=== PATIENT | female | born 1950 | race Hispanic/Latino ===

== ENCOUNTER 2017-10-04 11:30 | Inpatient (IN) | payer MEDICARE ==
--- NOTE | 2017-10-04 12:52 | ED PDOC ---
Arrival/HPI - General Chief Complaint: Abnormal Labs Time Seen by Provider: 10/04/17 11:37 Historian: Patient, Family - History of Present Illness Narrative History of Present Illness (Text): 10/04/17 12:40 La White is a 67 year old female, whose past medical history includes anemia, hypothyroidism, and recent PNA, who presents to the emergency department advised by her PMD. Patient reports feeling fatigue and notes being compliant with her antibiotics that were given to her due to pneumonia 5 days ago. pt reports outpt hemoglobin of 6.5. h/o of previous gi bleed. no dark stool , hematochezia, hememesis. . No other complaints were made. PMD: Dr. Ga Time/Duration: < week Symptom Onset: Sudden Symptom Course: Unchanged Activities at Onset: Rest Context: Home Past Medical History - Provider Review Nursing Documentation Reviewed: Yes - Infectious Disease Hx of Infectious Diseases: None - Reproductive Menopause: Yes - Pulmonary Hx Pneumonia: Yes (recently) - Endocrine/Metabolic Hx Hypothyroidism: Yes - Hematological/Oncological Hx Blood Disorders: No - Psychiatric Hx Substance Use: No - Anesthesia Hx Anesthesia: No Family/Social History - Physician Review Nursing Documentation Reviewed: Yes Family/Social History: Unknown Family HX Smoking Status: Unknown If Ever Smoked Hx Alcohol Use: No Hx Substance Use: No Allergies/Home Meds Allergies/Adverse Reactions: Allergies No Known Allergies Allergy (Verified 10/04/17 11:57) Home Medications: Home Meds Medication Instructions Recorded Confirmed Levothyroxine [Levoxyl] 0 mg PO DAILY 10/04/17 10/04/17 Review of Systems - Physician Review All systems were reviewed & negative as marked: Yes - Review of Systems Constitutional: Fatigue. absent: Fevers Respiratory: SOB Cardiovascular: absent: Chest Pain Physical Exam Vital Signs Reviewed: Yes Vital Signs Temp Pulse Resp BP Pulse Ox 10/04/17 18:03 98.0 F 65 18 130/72 99 10/04/17 17:18 98.1 F 65 18 127/72 10/04/17 17:02 97.7 F 76 18 125/67 10/04/17 16:50 97.9 F 78 18 127/70 100 10/04/17 13:00 68 18 142/70 98 10/04/17 11:53 98.6 F 72 16 145/68 97 Temperature: Afebrile Blood Pressure: Normal Pulse: Regular Respiratory Rate: Normal Appearance: Positive for: Well-Appearing, Non-Toxic, Comfortable Pain Distress: None Mental Status: Positive for: Alert and Oriented X 3 - Systems Exam Head: Present: Atraumatic, Normocephalic Pupils: Present: PERRL Extroacular Muscles: Present: EOMI Conjunctiva: Present: Normal Respiratory/Chest: Present: Clear to Auscultation, Good Air Exchange. No: Respiratory Distress, Accessory Muscle Use Cardiovascular: Present: Regular Rate and Rhythm, Normal S1, S2. No: Murmurs Abdomen: Present: Normal Bowel Sounds. No: Tenderness, Distention, Peritoneal Signs, Rebound, Guarding Rectal: Present: Other (brown stool. guaiac positive. cloth shrinking tester: Kelly Selvin) Neurological: Present: GCS=15, CN II-XII Intact, Speech Normal Skin: Present: Warm, Dry, Normal Color. No: Rashes Psychiatric: Present: Alert, Oriented x 3, Normal Insight, Normal Concentration Medical Decision Making ED Course and Treatment: 10/04/17 Impression: 67 year old female with brown stool and guaiac: positive, advised to come to emergency department by PMD Plan: -- Chest X-ray -- Labs -- Urinalysis -- Reassess and disposition Progress Notes: 10/04/17 17:44 hemnodynamic stable. infiltrate treated, discussed with dr mcneill acceptbouchra for admission. 10/04/17 18:24 - Lab Interpretations Lab Results: 10/04/17 13:35 10/04/17 13:35 Lab Results 10/04/17 15:00: Blood Type Confirm O POSITIVE 10/04/17 13:45: Influenza Typ A,B (EIA) Negative for flu a/b 10/04/17 13:40: Blood Type O POSITIVE, Antibody Screen Negative, Crossmatch See Detail, BBK History Checked No verified bt 10/04/17 13:35: Iron 19 L, TIBC 326, % Saturation 6 L 10/04/17 13:35: Sodium 141, Potassium 3.9, Chloride 104, Carbon Dioxide 25, Anion Gap 15, BUN 10, Creatinine 0.8, Est GFR ( Amer) > 60, Est GFR (Non- Af Amer) > 60, Random Glucose 85, Calcium 9.3, Total Bilirubin 0.3, AST 21, ALT 22, Alkaline Phosphatase 86, Total Protein 7.3, Albumin 3.5, Globulin 3.9, Albumin/Globulin Ratio 0.9 L, Lipase 229 10/04/17 13:35: Urine Color Yellow, Urine Appearance Clear, Urine pH 6.5, Ur Specific [place] <= 1.005, Urine Protein Negative, Urine Glucose (UA) Negative, Urine Ketones Negative, Urine Blood Negative, Urine Nitrate Negative, Urine Bilirubin Negative, Urine Urobilinogen 0.2, Ur Leukocyte Esterase Negative 10/04/17 13:35: PT 16.2 H, INR 1.40 H, APTT 27.8 10/04/17 13:35: WBC 10.0, RBC 3.94, Hgb 6.9 L*, Hct 27.2 L, MCV 69.0 L, MCH 17.5 L, MCHC 25.4 L, RDW 21.1 H, Plt Count 690 H, MPV 9.3, Gran % 67.9, Lymph % (Auto) 22.2, [place] % (Auto) 8.8 H, Eos % (Auto) 0.7 L, Baso % (Auto) 0.4, Gran # 6.80 H, Lymph # (Auto) 2.2, [place] # (Auto) 0.9 H, Eos # (Auto) 0.1, Baso # (Auto ) 0.04 I have reviewed the lab results: Yes - RAD Interpretation Radiology Orders: 10/04/17 12:49 CXR [CHEST PORTABLE] [RAD] Stat Lead Slot Technician: Radiologist - Medication Orders Current Medication Orders: Ceftriaxone Sodium (Rocephin 1 Gram Ivpb) 1 gm in 100 mls @ 100 mls/hr IVPB DAILY JOHN PRN Reason: Protocol Azithromycin 250 mg/ Sodium (Chloride) 250 mls @ 167 mls/hr IVPB DAILY JOHN PRN Reason: Protocol Levothyroxine Sodium (Synthroid) 25 mcg PO ACB JOHN Discontinued Medications Ceftriaxone Sodium (Rocephin 2 Gm Ivpb) 2 gm in 100 mls @ 100 mls/hr IVPB STAT STA PRN Reason: Protocol Stop: 10/04/17 14:05 Last Admin: 10/04/17 13:33 Dose: 100 mls/hr eMAR Start Stop Document 10/04/17 13:33 SF (Rec: 10/04/17 13:33 SF [id number]) Intravenous Solution Start Date 10/04/17 Start Time 13:33 End Date 10/04/17 End time 14:33 Total Infusion Time 60 Azithromycin (Zithromax 500mg In Ns) 500 mg in 250 mls @ 167 mls/hr IVPB STAT STA PRN Reason: Protocol Stop: 10/04/17 14:35 Last Admin: 10/04/17 14:56 Dose: 167 mls/hr eMAR Start Stop Document 10/04/17 14:56 SF (Rec: 10/04/17 14:56 SF [id number]) Intravenous Solution Start Date 10/04/17 Start Time 14:56 End Date 10/04/17 End time 16:30 Total Infusion Time 94 Levothyroxine Sodium (Synthroid) 25 mcg PO DAILY JOHN - Scribe Statement The provider has reviewed the documentation as recorded by the Jacy Montalvo Provider Scribe Attestation: All medical record entries made by the Scribe were at my direction and personally dictated by me. I have reviewed the chart and agree that the record accurately reflects my personal performance of the history, physical exam, medical decision making, and the department course for this patient. I have also personally directed, reviewed, and agree with the discharge instructions and disposition. Disposition/Present on Arrival - Present on Arrival Any Indicators Present on Arrival: No History of DVT/PE: No History of Uncontrolled Diabetes: No Urinary Catheter: No History of Decub. Ulcer: No History Surgical Site Infection Following: None - Disposition Have Diagnosis and Disposition been Completed?: Yes Diagnosis: Anemia, Pneumonia Disposition: HOSPITALIZED Disposition Time: 02:00 Patient Problems: Current Active Problems Problem Status Onset Anemia Acute Pneumonia Acute Condition: STABLE
[2017-10-04] MEDS ORDERED: Azithromycin 500MG/NS 250ml 500 MG/250 ML BAG IVPB STA (13:06)
[2017-10-04] MEDS ORDERED: cefTRIAXone 2 GM IN NS 2 GM/100 ML BAG IVPB STA (13:06)
[2017-10-04 13:58] LABS: BASO # 0.04 K/mm3 (0.0-2.0); BASO % 0.4 % (0.0-3.0); EOS # 0.1 (0.0-0.7); EOS % 0.7 % (1.5-5.0); GRAN # 6.8 (1.4-6.5); GRAN % 67.9 % (50.0-68.0); LYMPH # 2.2 (1.2-3.4); LYMPH % 22.2 % (22.0-35.0); MEAN CORPUSCULAR HEMOGLOBIN 17.5 pg (25.0-35.0); MEAN CORPUSCULAR HGB CONC 25.4 g/dl (31.0-37.0); MEAN PLATELET VOLUME 9.3 fl (7.0-11.0); MONO # 0.9 (0.1-0.6); MONO % 8.8 % (1.0-6.0); RBC 3.94 10^6/uL (3.5-6.1); RED CELL DISTRIBUTION WIDTH 21.1 % (11.5-14.5)
[2017-10-04 14:02] LABS: PH,URINE 6.5 (4.7-8.0); URINE BILIRUBIN NEGATIVE (NEGATIVE); URINE BLOOD NEGATIVE (NEGATIVE); URINE GLUCOSE (UA) NEGATIVE (NEGATIVE); URINE LEUKOCYTE ESTERASE NEGATIVE Leu/uL (NEGATIVE); URINE PROTEIN NEGATIVE mg/dL (<30 mg/dL); URINE UROBILINOGEN 0.2 E.U./dL (<1 E.U./dL)
[2017-10-04 14:03] LABS: URINE APPEARANCE CLEAR (CLEAR); URINE COLOR YELLOW (YELLOW)
[2017-10-04 14:11] LABS: ALB/GLOB RATIO 0.9 (1.1-1.8); ALBUMIN 3.5 g/dL (3.0-4.8); ALT/SGPT 22 U/L (7-56); AST/SGOT 21 U/L (14-36); BLOOD UREA NITROGEN 10 mg/dL (7-21); CALCIUM 9.3 mg/dL (8.4-10.5); GFR AFRICAN-AMERICAN > 60; GFR NON-AFRICAN AMERICAN > 60; LIPASE 229 U/L (23-300)
[2017-10-04 14:17] LABS: HEMOGLOBIN 6.9 g/dL (12.0-16.0)
--- NOTE | 2017-10-04 14:24 | RAD ---
HISTORY: cough COMPARISON: No prior. FINDINGS: LUNGS: There is dense consolidation in the right upper lobe. PLEURA: No significant pleural effusion identified, no pneumothorax apparent. CARDIOVASCULAR: Normal. OSSEOUS STRUCTURES: No significant abnormalities. VISUALIZED UPPER ABDOMEN: Normal. OTHER FINDINGS: None. IMPRESSION: Right upper lobe pneumonia
[2017-10-04 14:58] LABS: INR 1.4 (0.93-1.08); PARTIAL THROMBOPLASTIN TIME 27.8 Seconds (25.1-36.5); PROTHROMBIN TIME 16.2 SECONDS (9.4-12.5)
[2017-10-04 15:44] LABS: IRON 19 ug/dL (45-180)
[2017-10-04 15:53] LABS: % IRON SATURATION 6 % (20-55); TOTAL IRON BINDING CAPACITY 326 ug/dL (265-497)
[2017-10-04 20:09] VITALS: BMI 36.4
[2017-10-04] MEDS ORDERED: Influenza Vaccine 60 mcg/0.5 mL SYR (4YR UP) IM ONE (20:09)
[2017-10-04] MEDS ORDERED: Pneumococcal 23-Valent Vaccine IM ONE (20:09)
[2017-10-04 21:11] LABS: FERRITIN 12.6 ng/mL
[2017-10-05] MEDS ORDERED: Albuterol-Ipratrop 3 mg / 0.5 (3 ml) UD IH PRN (06:41)
[2017-10-05 07:25] LABS: HEMOGLOBIN 7.6 g/dL (12.0-16.0); MEAN CORPUSCULAR HEMOGLOBIN 18.7 pg (25.0-35.0); MEAN CORPUSCULAR HGB CONC 27.5 g/dl (31.0-37.0); MEAN PLATELET VOLUME 8.6 fl (7.0-11.0); RBC 4.06 10^6/uL (3.5-6.1); RED CELL DISTRIBUTION WIDTH 21.2 % (11.5-14.5); WHITE BLOOD COUNT 8.5 10^3/ul (4.5-11.0)
[2017-10-05] MEDS: Albuterol-Ipratrop 3 mg / 0.5 (3 ml) UD IH SCH ×3 (07:32→19:54)
[2017-10-05] MEDS: Budesonide 0.5 mg/2 ml Inhal Susp UD IH SCH ×2 (07:32→19:54)
[2017-10-05 07:52] LABS: BLOOD UREA NITROGEN 11 mg/dL (7-21); GFR AFRICAN-AMERICAN > 60; GFR NON-AFRICAN AMERICAN > 60
[2017-10-05 07:53] LABS: ALB/GLOB RATIO 0.9 (1.1-1.8); ALBUMIN 3.2 g/dL (3.0-4.8); ALT/SGPT 18 U/L (7-56); AST/SGOT 22 U/L (14-36); CALCIUM 9.1 mg/dL (8.4-10.5)
--- NOTE | 2017-10-05 08:52 | CT ---
PROCEDURE: CT Chest without contrast HISTORY: pneumonia, anemia r/o cancer COMPARISON: None. TECHNIQUE: Contiguous axial images were obtained through the chest without intravenous contrast enhancement. Sagittal and coronal reconstructions were performed. Radiation dose (DLP): 701.34 mGy-cm. This CT exam was performed using one or more of the following dose reduction techniques: Automated exposure control, adjustment of the mA and/or kV according to patient size, and/or use of iterative reconstruction technique. FINDINGS: LUNGS: There are foci of airspace consolidation at the right lung upper lobe and superior segment of the right lung lower lobe. Right hilar and perihilar consolidations are also noted. Findings may represent multifocal infection or inflammatory process including but not limited to sarcoidosis. The differential consideration also includes but less likely multifocal neoplasm. There is mild narrowing of the right upper lobe bronchus and right bronchus intermedius at the right hilum and perihilar region noted. No evidence of intrabronchial lesion or obstruction in the right lung airway. No evidence of suspicious lesion or nodule in the left lung. There is a small cyst seen at the right lung apex. MEDIASTINUM: Unremarkable thoracic aorta. No aneurysm. Normal sized heart. Main pulmonary artery unremarkable. No vascular congestion. There are conglomerate large lymphadenopathy at the right paratracheal region. There is also mildly to moderately enlarged lymph nodes at the right prevascular region in the upper mediastinum. There is a suspicious for right hilar lymphadenopathy which cannot be fully evaluated in this noncontrast study. There is also suspicious for right sub- carinal enlarged lymph nodes. PLEURA: No pleural fluid. No pneumothorax. BONES: No fracture. No destructive lesion. UPPER ABDOMEN: Incidentally noted partially imaged low-attenuation cystic lesion at the pancreatic tail measures 1.8 centimeter seen on image 115 series 4. No evidence of mass lesion at the adrenal glands. OTHER FINDINGS: None. IMPRESSION: Foci of airspace consolidation at the right lung upper lobe and in the superior segments of right lower lobe extending to the right hilum which is moderately enlarged. Suspicious for punctate calcification this airspace consolidation. The differential consideration includes sarcoidosis, or chronic pneumonitis, versus less likely but not totally excluded multifocal pneumonia or neoplasm. Conglomerate lymphadenopathy at the right mediastinum and possible right hilum lymphadenopathy. Incidentally noted is 1.8 centimeter low-attenuation cystic lesion at the pancreatic tail. Dedicated enhanced CT or MRI of the abdomen is suggested for further assessment.
[2017-10-05] MEDS: cefTRIAXone 1 gm 1 GM/100 ML BAG IVPB SCH (09:56)
[2017-10-05] MEDS: Azithromycin 250 MG in Sodium Chloride 0.9% 250 ML IVPB SCH (09:56)
[2017-10-05] MEDS: Levothyroxine 25 MCG TAB PO SCH (09:57)
[2017-10-05] MEDS: MethylPREDNISolone 40 mg Vial IVP SCH ×2 (09:57→22:09)
[2017-10-05] MEDS ORDERED: Levothyroxine 25 MCG TAB PO SCH (10:00)
--- NOTE | 2017-10-05 11:41 | CON ---
DATE: 10/05/2017 PULMONARY CONSULTATION REASON FOR CONSULTATION: Pneumonia. REFERRING PHYSICIAN: Dr. Hobbs. HISTORY OF PRESENT ILLNESS: The patient is a 67-year-old female, with past medical history significant for hypothyroidism, questionable chronic anemia, who presents to [facility] with chief complaints of dyspnea on exertion, cough, and sputum production for the past week. The patient states that these pulmonary symptoms were preceded by a runny nose and nasal congestion - which has now resolved. There is no history of shortness of breath at rest. There is no history of chest pain, coughing up of blood, or chest pain - made worse with deep respirations. The patient does state to fevers at home. No history of chills or infectious exposure. No history of night sweats, weight loss or appetite change prior to the above events. No history of leg or calf pains. No history of syncope or diaphoresis. No history of recent travel or trauma. REVIEW OF SYSTEMS: No history of nausea, vomiting or diarrhea. No acute urinary symptoms. No new neurologic complaints. Rest of the review of systems is negative. ALLERGIES: NO KNOWN ALLERGIES. SOCIAL HISTORY: Positive for former tobacco usage. No alcohol. FAMILY HISTORY: No inheritable diseases. HOME MEDICATIONS: Include Levoxyl. PHYSICAL EXAMINATION GENERAL: The patient appears comfortable at rest. She is not short of breath. VITAL SIGNS: (Last noted in the computer): Temperature is 97.9, pulse is 70, respirations 18/20, blood pressure 134/74. Oxygen saturation on nasal cannula is 99%. HEENT: Normocephalic, atraumatic. No JVD. CARDIOVASCULAR: Positive S1, S2. No S3 gallop. LUNGS: Decreased breath sounds at the bases. Scattered loose rhonchi. No wheezing. EXTREMITIES: Mild edema. No cyanosis, no clubbing. Calves are nontender to palpation. GI: Abdomen is soft, nontender and nondistended. Bowel sounds are positive. SKIN: No acute rash. NEUROLOGIC: Limited at the present time. PERTINENT LABORATORY DATA: Chest x-ray was done yesterday and reviewed. There is a dense right upper lobe consolidation consistent with pneumonia. CBC: White count 10.0, hemoglobin 6.9, hematocrit 27.2, platelets of 690,000. Complete metabolic profile: Iron is -19. Rest of the metabolic profiles within normal limits. IMPRESSION: 1. Right upper lobe pneumonia. 2. Acute bronchitis. 3. Severe anemia. 4. Thyroid disease. PLAN: The patient presents to [facility] with a 1-week history of worsening pulmonary symptoms. As above, the pulmonary symptoms were preceded by nasal congestion and runny nose - which have now resolved. The patient also states to fevers at home. In the emergency room, the patient was noted to be severely anemic. She was thus admitted for additional evaluation. I did review the chest x-ray as above. There is a dense right upper lobe consolidation consistent with pneumonia. CAT scan of the chest has also been ordered for closer evaluation. On physical exam, the patient is in [id number] bronchospasm. However, there is no significant alveolar-arterial gradient. I will start the patient on inhaled DuoNebs, Pulmicort, and low-dose intravenous steroids for now. I have also reviewed the laboratory data. Severe anemia is noted. Dr. Rosado has been called on the case for GI consultation. The patient does state to feeling better this morning - compared to the past few days. She is clinically improved, with a decrease in her fevers. Additional pulmonary intervention will be based on the above results, as well as the clinical status of the patient. I will discuss the above with Dr. Hobbs. Thank you very much for this pulmonary consultation. Harris Parra MD MTDKadie
[2017-10-05] MEDS ORDERED: Propofol 10 mg/ml Inj (20 ML) ONE (16:35)
[2017-10-05] MEDS ORDERED: Albuterol HFA 90 mcg/actuation (8 g) ONE (16:41)
--- NOTE | 2017-10-05 17:01 | HP ---
CHIEF COMPLAINT AND HISTORY OF PRESENT ILLNESS: This is a 67-year-old female who is coming to the hospital with anemia based on a CBC that was done by her primary care doctor, Dr. Arguello. The patient had a hemoglobin of 6.8. The patient has a history of hypothyroidism, she was being treated with respiratory tract infection with Levaquin as an outpatient. She was complaining of chills and fatigue, this was about 5 days ago. She says that she is feeling better. She was receiving Levaquin 750 mg. The patient denies any black stools. She does not take any NSAIDs. She denies any nausea, vomiting, or abdominal pain. No dysuria or frequency. No nocturia. No weakness in the arms or legs. REVIEW OF SYSTEMS: All other review of symptoms are within normal limits except as mentioned. ALLERGIES: NO KNOWN DRUG ALLERGIES. SOCIAL HISTORY: She does not smoke. She denies alcohol or drugs. FAMILY HISTORY: Noncontributory. PAST MEDICAL HISTORY: Hypothyroidism. PHYSICAL EXAMINATION: VITAL SIGNS: Temperature is 97.9, pulse of 70, blood pressure is 134/74, respirations 20. Height is 5 feet 6 inches, weight is 226. BMI is 36.5. GENERAL: The patient lying in bed, uncomfortable, and in no acute distress. HEENT: Atraumatic and normocephalic. Anicteric sclerae. Moist mucosa. [place] conjunctivae. No oral lesions. NECK: No JVD, anterior and posterior adenopathy, thyromegaly, or bruits. CARDIOVASCULAR: S1 and S2 regular. No murmur, rubs, or gallop. LUNGS: Clear to auscultation bilaterally. No wheezes, rales, or rhonchi. ABDOMEN: Bowel sounds are positive. Soft, nontender and nondistended. No hepatosplenomegaly. No rebound and no guarding EXTREMITIES: No cyanosis, clubbing, or edema. NEUROLOGIC: No facial asymmetry. Tongue is midline. No uvula deviation. Power is 5/5 upper extremity and lower extremity. Sensation intact in upper extremity and lower extremity. PSYCHIATRIC: She is awake, alert and oriented x3. No anxiety or depression. She has normal affect. GENITOURINARY: No CVA tenderness. VASCULAR: 2+ pulses in the carotid pulses and pedal pulses. SKIN: No erythema or nodules SPINE: Shows normal curvature. LABORATORY DATA: White count of 10; hemoglobin is 6.9, repeat hemoglobin is 7.6. INR is 1.4. Chemistry shows an iron saturation of 6% with ferritin of 12.6. The patient's magnesium is 2.3. She has vitamin B12 of 613. The patient's urine has blood is negative, nitrites are negative. Serology shows influenza is negative. IMAGING: The patient had a chest x-ray, the chest x-ray shows a right upper lobe pneumonia. ASSESSMENT: 1. Right lung pneumonia, community acquired. 2. Anemia of iron deficiency. 3. Hypothyroidism. PLAN: The patient is currently admitted to the hospital. She has an abnormal chest x-ray. Her white count is normal, but she was on antibiotics. The patient does have anemia. She had iron studies and shows it is iron deficiency. I have ordered a CAT scan to evaluate the patient's anemia in the fact that she has an infiltrate. I want to rule out malignancy. I will also get Dr. Parra to evaluate the patient as well as Dr. Rosado to evaluate for the anemia. The patient is on steroids. I will place the patient on p.o. iron to help with the anemia. I did speak to Dr. Parra regarding the case. I did speak to Dr. Arguello who updated me on the patient's diagnoses as an outpatient. She is on a liquid diet. Yuniel Hobbs MD
[2017-10-05] MEDS: Sodium Chloride 0.9% 1,000 ML IV SCH (21:49)
[2017-10-06] MEDS: Albuterol-Ipratrop 3 mg / 0.5 (3 ml) UD IH SCH ×4 (01:14→20:22)
[2017-10-06] MEDS: Sodium Chloride 0.9% 1,000 ML IV SCH (04:29)
[2017-10-06] MEDS: Budesonide 0.5 mg/2 ml Inhal Susp UD IH SCH ×2 (07:26→20:22)
[2017-10-06] MEDS: Levothyroxine 25 MCG TAB PO SCH (08:00)
--- NOTE | 2017-10-06 08:02 | PN ---
DATE: SUBJECTIVE: The patient appears very comfortable this morning. She is not short of breath at rest. OBJECTIVE VITAL SIGNS (last noted in the computer): Temperature is 98.2, pulse 62, respirations 18, blood pressure 135/69. Oxygen saturation on nasal cannula is 95%. HEENT: Normocephalic, atraumatic. No JVD. CARDIOVASCULAR: Positive S1, S2. No S3 gallop. LUNGS: Improved breath sounds at the bases. Much less rhonchi. Few wheezes. EXTREMITIES: Mild edema. No cyanosis, no clubbing. Calves are nontender to palpation. GASTROINTESTINAL: Abdomen is soft, nontender and nondistended. Bowel sounds are positive. SKIN: No acute rash. NEUROLOGIC: Exam limited at the present time. PERTINENT LABORATORY DATA: I did review the CT scan of the chest with Dr. Burton (Radiology) at length yesterday. There is significant air space consolidation in the right upper lobe - most consistent with pneumonia. Due to the extent of the air space consolidation, underlying malignancy could not be excluded. In addition, there is a right basilar/right lower lobe pulmonary nodule with spiculated borders. Lastly, there is significant adenopathy at the right paratracheal region, as well as the right prevascular regions. There is no endobronchial involvement. IMPRESSION 1. Right upper lobe pneumonia. 2. Right lower lobe pulmonary nodule. 3. Acute bronchitis. 4. Severe anemia. 5. Thyroid disease. PLAN: The patient appears very comfortable this morning. She is not short of breath at rest. She does state to feeling much, much better overall. On physical exam, her bronchospasm is certainly less. In addition, the alveolar-arterial gradient is also less. I will continue the current nebulizer treatments and low-dose intravenous steroids for now. Again, I did review the CT scan of the chest with Dr. Burton (Radiology) at length yesterday. Again, there is a right upper lobe air space consolidation - most consistent with pneumonia. However, due to the extent of the air space consolidation, underlying malignancy cannot be ruled out. As above, there is also a spiculated right lower lobe/right basilar nodule. As above, there is significant right paratracheal and right prevascular lymphadenopathy. There is no endobronchial involvement. I did discuss the CT scan findings with the patient at length this morning. I also discussed the CT scan findings with Dr. Hobbs and Dr. Gus Jimenez yesterday at length. Because of the appearance of the right lower lobe nodule, along with the significant adenopathy, the patient has agreed to a CT scan guided biopsy of the right lower lobe nodule. I will re-contact with Dr. Gus Jimenez this morning. Clinical status of the patient is certainly improved - compared to the initial presentation. However, the overall status/prognosis for this patient does remain guarded at this point in time. I will discuss the above with Dr. Hobbs again this morning. Harris Parra MD MTDD
[2017-10-06] MEDS ORDERED: Iron Sucrose 100 mg/5 ml Inj IVP ONE (09:01)
[2017-10-06] MEDS: MethylPREDNISolone 40 mg Vial IVP SCH ×2 (10:14→21:27)
[2017-10-06] MEDS: cefTRIAXone 1 gm 1 GM/100 ML BAG IVPB SCH (10:16)
[2017-10-06] MEDS: Azithromycin 250 MG in Sodium Chloride 0.9% 250 ML IVPB SCH (10:32)
--- NOTE | 2017-10-06 13:41 | PN ---
DATE: SUBJECTIVE: The patient has no complaints of any headaches, any dizziness. She states she feels comfortable. No nausea. No vomiting. PHYSICAL EXAMINATION VITAL SIGNS: Temperature is 98.2, pulse is 62, blood pressure is 135/69, respirations 18, O2 saturations 95%. GENERAL: The patient is lying in bed, flat, comfortable. HEENT: No oral lesion. Anicteric sclerae. Moist mucosa. NECK: No JVD, adenopathy, or thyromegaly. CARDIOVASCULAR: S1 and S2, regular. No murmurs, rubs, or gallops. LUNGS: Clear to auscultation bilaterally. No wheeze, rales, or rhonchi. ABDOMEN: Bowel sounds are positive. Soft, nontender and nondistended. EXTREMITIES: No cyanosis, clubbing or edema. LABORATORY DATA: White count is 8.5, hemoglobin is 7.6. Creatinine 0.8. CT of the chest has been reviewed. The patient does have a lesion in the right chest on CT. I did speak to Dr. Parra regarding the case. ASSESSMENT 1. Community acquired pneumonia. 2. Iron deficiency anemia. 3. Hypothyroidism. 4. Right lung nodule about 2.3 cm. 5. Esophageal polyp. PLAN: The patient is currently comfortable. She has a hemoglobin of 7.6, she received 1 unit transfusion yesterday, reticulocyte count is elevated 2.45. She does have iron deficiency with ferritin of 12 and iron saturation is 6%. The patient is on iron. She is going to be continued on Pulmicort. She is on Rocephin for antibiotics and she is on steroids by Dr. Parra from Pulmonary. She is on Synthroid for hypothyroidism. She had a CT guided biopsy that has been ordered for today. I did speak to Dr. Gus Jimenez yesterday regarding the case. The patient will most likely need lung biopsy. We will await for the results. I have okayed the patient take a shower. I will give her 200 mg of IV iron in order to help improve her anemia. So, she does not require a transfusion. Yuniel Hobbs MD [facility] # [id number]
[2017-10-06] MEDS ORDERED: Peg-Electrolyte Oral Soln 4L (Golytely) PO ONE (15:00)
[2017-10-06] MEDS ORDERED: Midazolam 2 MG/2 ML VIAL ONE (17:27)
[2017-10-06] MEDS ORDERED: Lidocaine 1% Inj (20ml) ONE (17:28)
--- NOTE | 2017-10-06 17:59 | CP.PCM.PN ---
<Clari Agee - Last Filed: 10/06/17 17:58> Subjective - Date & Time of Evaluation Date of Evaluation: 10/06/17 Time of Evaluation: 10:25 - Subjective Subjective: S&E at bedside, chart reviewed, for lung BX today, had egd yesterday foumd to have EG junction polyp.No GI compliants. No reports of overt GI bleeding. Objective - Vital Signs/Intake and Output Vital Signs (last 24 hours): Temp Pulse Resp BP Pulse Ox 98.0 F 72 20 144/75 96 10/06/17 06:00 10/06/17 06:00 10/06/17 06:00 10/06/17 06:00 10/06/17 06:00 Intake and Output: 10/06/17 10/06/17 06:59 18:59 Intake Total 180 Balance 180 - Medications Medications: Current Medications Albuterol/Ipratropium (Duoneb 3 Mg/0.5 Mg (3 Ml) Ud) 3 ml IH [id number] [facility] Last Admin: 10/06/17 13:17 Dose: 3 ml Albuterol/Ipratropium (Duoneb 3 Mg/0.5 Mg (3 Ml) Ud) 3 ml IH Q2H PRN PRN Reason: Shortness of Breath Bisacodyl (Dulcolax) 10 mg PO ONCE ONE Stop: 10/06/17 20:01 Budesonide (Pulmicort Respules) 0.5 mg IH [id number] [facility] Last Admin: 10/06/17 07:26 Dose: 0.5 mg Ferrous Sulfate (Feosol) 324 mg PO BID [facility] Last Admin: 10/06/17 10:14 Dose: 324 mg Ceftriaxone Sodium (Rocephin 1 Gram Ivpb) 1 gm in 100 mls @ 100 mls/hr IVPB DAILY [facility] PRN Reason: Protocol Last Admin: 10/06/17 10:16 Dose: 100 mls/hr Azithromycin 250 mg/ Sodium (Chloride) 250 mls @ 167 mls/hr IVPB DAILY [facility] PRN Reason: Protocol Last Admin: 10/06/17 10:32 Dose: 167 mls/hr Levothyroxine Sodium (Synthroid) 25 mcg PO ACB [facility] Last Admin: 10/06/17 08:00 Dose: 25 mcg Methylprednisolone (Solu-Medrol) 30 mg IVP Q12 [facility] Last Admin: 10/06/17 10:14 Dose: 30 mg - Labs Labs: 10/05/17 07:00 10/05/17 07:00 PT 16.2 SECONDS (9.4-12.5) H 10/04/17 13:35 INR 1.40 (0.93-1.08) H 10/04/17 13:35 APTT 27.8 Seconds (25.1-36.5) 10/04/17 13:35 - Constitutional Appears: No Acute Distress - Head Exam Head Exam: NORMOCEPHALIC - Eye Exam Eye Exam: Normal appearance. absent: Scleral icterus - ENT Exam ENT Exam: Mucous Membranes Moist - Respiratory Exam Respiratory Exam: NORMAL BREATHING PATTERN. absent: Respiratory Distress - Cardiovascular Exam Cardiovascular Exam: +S1, +S2 - GI/Abdominal Exam GI & Abdominal Exam: Soft, Normal Bowel Sounds. absent: Guarding, Tenderness, Rebound - Extremities Exam Extremities Exam: absent: Calf Tenderness, Pedal Edema - Neurological Exam Neurological Exam: Alert, Awake, Oriented x3 - Skin Skin Exam: Dry, Warm Assessment and Plan - Assessment and Plan (Free Text) Assessment: ASSESSEMNT: Anemia Pneumonia EG junction polyp Lung nodule PLAN: FU EGD pathology plan for colonoscopy tomorrow 10/07/17 clear liquid diet Golytle prep at 3 pm, Dulcolax 10 mg PO at 8 pm NPO 12 midnight except meds, can have clear liquid breakfast hold Iron PO till after colon, can resume next day 10/08/17. on Iv antibiotics for lung BX today w/ Dr. Jimenez check cbc/cmp in am Seen and discussed w/ Dr. Rosado. <Farida Rosado V - Last Filed: 10/19/17 11:33> Objective - Vital Signs/Intake and Output Vital Signs (last 24 hours): Temp Pulse Resp BP Pulse Ox 98.2 F 66 16 141/56 L 94 L 10/06/17 19:15 10/06/17 19:15 10/06/17 19:15 10/06/17 19:15 10/06/17 19:15 Intake and Output: 10/06/17 10/07/17 18:59 06:59 Intake Total 100 Balance 100 - Medications Medications: Current Medications Acetaminophen (Tylenol 325mg Tab) 650 mg PO Q4 PRN PRN Reason: Pain, Mild (1-3) Albuterol/Ipratropium (Duoneb 3 Mg/0.5 Mg (3 Ml) Ud) 3 ml IH [id number] [facility] Last Admin: 10/06/17 20:22 Dose: 3 ml Albuterol/Ipratropium (Duoneb 3 Mg/0.5 Mg (3 Ml) Ud) 3 ml IH Q2H PRN PRN Reason: Shortness of Breath Budesonide (Pulmicort Respules) 0.5 mg IH [id number] [facility] Last Admin: 10/06/17 20:22 Dose: 0.5 mg Ferrous Sulfate (Feosol) 324 mg PO BID [facility] Last Admin: 10/06/17 10:14 Dose: 324 mg Ceftriaxone Sodium (Rocephin 1 Gram Ivpb) 1 gm in 100 mls @ 100 mls/hr IVPB DAILY [facility] PRN Reason: Protocol Last Admin: 10/06/17 10:16 Dose: 100 mls/hr Azithromycin 250 mg/ Sodium (Chloride) 250 mls @ 167 mls/hr IVPB DAILY [facility] PRN Reason: Protocol Last Admin: 10/06/17 10:32 Dose: 167 mls/hr Sodium Chloride (Sodium Chloride 0.45%) 1,000 mls @ 80 mls/hr IV .[id number] [facility] Stop: 10/07/17 06:00 Last Admin: 10/06/17 19:38 Dose: 80 mls/hr Levothyroxine Sodium (Synthroid) 25 mcg PO ACB [facility] Last Admin: 10/06/17 08:00 Dose: 25 mcg Methylprednisolone (Solu-Medrol) 30 mg IVP Q12 [facility] Last Admin: 10/06/17 21:27 Dose: 30 mg Ondansetron HCl (Zofran Inj) 4 mg IVP Q6H PRN PRN Reason: Nausea/Vomiting - Labs Labs: 10/05/17 07:00 10/05/17 07:00 PT 16.2 SECONDS (9.4-12.5) H 10/04/17 13:35 INR 1.40 (0.93-1.08) H 10/04/17 13:35 APTT 27.8 Seconds (25.1-36.5) 10/04/17 13:35 Attending/Attestation - Attestation I have personally seen and examined this patient.: Yes I have fully participated in the care of the patient.: Yes I have reviewed all pertinent clinical information, including history, physical exam and plan: Yes Notes (Text): This is an addendum to GI progress report dictated by Clari Agee APN.The patient was seen and examined earlier. Medical records, lab studies, imagings were reviewed. Last 24 hours events reviewed. Agreed with the above treatment plan as outlined in Clari Agee APN's notes the with the addition of the following : Patient will be scheduled for colonoscopy with GoLYTELY preparation, nothing by mouth after midnight. Continue GI prophylaxis and monitor H&H and for overt GI bleed.
[2017-10-06] MEDS ORDERED: Sodium Chloride 0.45% 1,000 ML IV SCH (18:30)
[2017-10-06] MEDS ORDERED: Bisacodyl 5mg EC Tab PO ONE (20:00)
--- NOTE | 2017-10-06 20:37 | CT ---
PROCEDURE: CT guided right lower lobe lung biopsy. HISTORY: Large right hilar and lower lobe lung mass. Evaluate for malignancy. PHYSICIAN(S): Gus Jimenez MD. TECHNIQUE: The relative risks and indications of the procedure were explained to the patient and consent obtained. The patient was placed prone on the CT scanner and preliminary images through the mid and lower lungs obtained. Conscious sedation and monitoring were provided throughout the procedure by a nurse. There is a large right hilar mass with extension into the right lower lobe. A right posterior approach was selected and the area prepped and draped in the usual sterile fashion. 1% Xylocaine was used to anesthetize the skin and soft tissues. A 19 gauge guiding needle was advanced into the 3.5 cm right lower lobe component. Its position was confirmed with CT. Using coaxial technique, multiple core biopsies were obtained. The postprocedure images show no evidence of large pneumothorax or hemorrhage P. IMPRESSION: 1. CT-guided ight lower lobe lung biopsy as described above.
[2017-10-07] MEDS: Albuterol-Ipratrop 3 mg / 0.5 (3 ml) UD IH SCH ×5 (03:05→20:34)
[2017-10-07 07:05] LABS: HEMOGLOBIN 8.4 g/dL (12.0-16.0); MEAN CELL VOLUME 68.6 fl (80.0-105.0); MEAN CORPUSCULAR HEMOGLOBIN 18.5 pg (25.0-35.0); MEAN CORPUSCULAR HGB CONC 26.9 g/dl (31.0-37.0); MEAN PLATELET VOLUME 8.8 fl (7.0-11.0); RBC 4.55 10^6/uL (3.5-6.1); RED CELL DISTRIBUTION WIDTH 22.1 % (11.5-14.5); WHITE BLOOD COUNT 13.9 10^3/ul (4.5-11.0)
[2017-10-07 07:21] LABS: BLOOD UREA NITROGEN 11 mg/dL (7-21); CALCIUM 9.7 mg/dL (8.4-10.5); GFR AFRICAN-AMERICAN > 60; GFR NON-AFRICAN AMERICAN > 60
[2017-10-07] MEDS ORDERED: Magnesium Citrate Oral SOL (300 ml) PO ONE (07:48)
[2017-10-07] MEDS: Budesonide 0.5 mg/2 ml Inhal Susp UD IH SCH ×2 (07:54→20:33)
[2017-10-07] MEDS: Levothyroxine 25 MCG TAB PO SCH (08:36)
--- NOTE | 2017-10-07 09:12 | RAD ---
HISTORY: rt lung bx COMPARISON: 10/12/2017 FINDINGS: LUNGS: There is a dense focal infiltrate in the right upper lobe. There is no evidence of post biopsy pneumothorax PLEURA: No significant pleural effusion identified, no pneumothorax apparent. CARDIOVASCULAR: Normal. OSSEOUS STRUCTURES: No significant abnormalities. VISUALIZED UPPER ABDOMEN: Normal. OTHER FINDINGS: None. IMPRESSION: There is a dense focal infiltrate in the right upper lobe. There is no evidence of post biopsy pneumothorax
[2017-10-07] MEDS: cefTRIAXone 1 gm 1 GM/100 ML BAG IVPB SCH (11:01)
[2017-10-07] MEDS: MethylPREDNISolone 40 mg Vial IVP SCH ×2 (11:03→21:09)
--- NOTE | 2017-10-07 11:04 | PN ---
DATE: 10/07/2017 PULMONARY NOTE SUBJECTIVE: The patient appears comfortable this morning. She is not short of breath at rest. PHYSICAL EXAMINATION VITAL SIGNS: (Last noted in the computer): Temperature is 98.2, pulse is 66, respirations 16, blood pressure 141/56. Oxygen saturation on nasal cannula is 94%. HEENT: Normocephalic, atraumatic. No JVD. CARDIOVASCULAR: Positive S1, S2. No S3 gallop. LUNGS: Improved breath sounds at the bases. Minimal/less rhonchi. No wheezing this morning. EXTREMITIES: Mild edema. No cyanosis, no clubbing. Calves are nontender to palpation. GI: Abdomen is soft, nontender and nondistended. Bowel sounds are positive. SKIN: No acute rash. NEUROLOGIC: Limited at the present time. IMPRESSION: 1. Right upper lobe pneumonia. 2. Right lower lobe pulmonary nodule. 3. Acute bronchitis. 4. Severe anemia. 5. Thyroid disease. PLAN: The patient appears much more comfortable this morning. She is not short of breath at rest. She does state to feeling much, much better overall. On physical exam, there is certainly less bronchospasm noted. I will continue the current nebulizer treatments and inhaled steroids, as well as, decrease the intravenous steroids this morning. The patient also remains on antibiotic therapy. The temperatures have resolved. Culture results are so far negative. I did note the CAT scan findings at length in yesterday's assessment. The patient is status post CAT scan-guided lung biopsy of the right lower lobe nodule. Input by Dr. Gus Jimenez is noted. GI evaluation is also ongoing. Clinical status of the patient is significantly improved - compared to the initial presentation. However, the future status/prognosis for this patient does remain guarded. I will discuss the above with Dr. Hobbs. Harris Parra MD MTDKadie
--- NOTE | 2017-10-07 11:41 | PN ---
DATE: SUBJECTIVE: The patient has no complaints of any chest pain, any shortness of breath. No headaches. No fevers or chills. PHYSICAL EXAMINATION: VITAL SIGNS: Temperature is 98.2, pulse is 66, blood pressure is 141/56, respirations 16. GENERAL: The patient is lying in bed, flat, comfortable. HEENT: No oral lesion. Anicteric sclerae. Moist mucosa. NECK: No JVD, adenopathy, or thyromegaly. CARDIOVASCULAR: S1 and S2, regular. No murmurs, rubs, or gallops. LUNGS: Clear to auscultation bilaterally. No wheeze, rales, or rhonchi. ABDOMEN: Bowel sounds are positive, soft, nontender and nondistended. EXTREMITIES: No cyanosis, clubbing or edema. LABORATORY DATA: White count of 8.5, hemoglobin is 7.6. ASSESSMENT: 1. Community acquired pneumonia. 2. Iron deficiency anemia. 3. Hypothyroidism. 4. Right lung nodule about 2.3 cm. 5. Esophageal polyp. PLAN: The patient had her CT-guided lung biopsy yesterday, we will await for the results. The patient also had a biopsy of a polyp found at the EJ junction. She scheduled to get a colonoscopy done today. I did speak to from primary care doctor to update her. I also spoke with Dr. Parra from Pulmonary yesterday. We will await pathology results. She is getting GoLYTELY for her colonoscopy this morning. She feels well. The patient can most likely to be discharged home over the weekend and followed up as an outpatient with the primary care doctor, and await results of her pathology report. Yuniel Hobbs MD
[2017-10-07] MEDS ORDERED: Lactated Ringer's 1,000 ML IV SCH (12:15)
[2017-10-07] MEDS: Azithromycin 250 MG in Sodium Chloride 0.9% 250 ML IVPB SCH (12:20)
[2017-10-07] MEDS ORDERED: Propofol 10 mg/ml Inj (20 ML) ONE (17:22)
[2017-10-07] MEDS ORDERED: Sodium Chloride 0.9% 1,000 ML IV SCH (18:15)
--- NOTE | 2017-10-07 22:20 | CARD ---
APPROVED REPORT EKG Measurement Heart [id number] <Conclusion> Normal sinus rhythm Inferior infarct, age undetermined Abnormal ECG
[2017-10-08] MEDS: Albuterol-Ipratrop 3 mg / 0.5 (3 ml) UD IH SCH ×3 (03:05→13:59)
[2017-10-08] MEDS: Budesonide 0.5 mg/2 ml Inhal Susp UD IH SCH (08:23)
[2017-10-08] MEDS: Levothyroxine 25 MCG TAB PO SCH (08:53)
[2017-10-08] MEDS: MethylPREDNISolone 40 mg Vial IVP SCH (09:47)
[2017-10-08] MEDS: Azithromycin 250 MG in Sodium Chloride 0.9% 250 ML IVPB SCH (09:48)
[2017-10-08 11:02] VITALS: BP 135/95; PULSE 87; RESP 20; TEMP 98; O2SAT 96
[2017-10-08] MEDS: cefTRIAXone 1 gm 1 GM/100 ML BAG IVPB SCH (11:02)
--- NOTE | 2017-10-10 01:05 | DS ---
DISCHARGE DIAGNOSES: 1. Right upper lobe nodule, status post CT-guided biopsy. 2. Community-acquired pneumonia. 3. Iron deficiency anemia. 4. Hypothyroidism. 5. Esophageal polyp. HOSPITAL COURSE: The patient was admitted with pneumonia, found to have right upper lobe nodule, CT-guided biopsy done. She also underwent EGD and colonoscopy, polyp removed. She has severe iron deficiency anemia, received blood transfusion during hospitalization. She is being discharged home in stable condition. PHYSICAL EXAMINATION: On discharge, GENERAL: Comfortable in bed, in no acute distress. VITAL SIGNS: Temperature 98.7, heart rate 60 per minute, blood pressure 130/70, respiratory rate 18 per minute. HEENT: Normal. NECK: No lymphadenopathy. CHEST: Air entry present and equal bilaterally. No added sounds. CARDIOVASCULAR: S1 and S2 normal. No murmur. No gallop. ABDOMEN: Soft, nontender. No hepatosplenomegaly. EXTREMITIES: No edema. CENTRAL NERVOUS SYSTEM: Alert and oriented x3. No focal sensory or motor deficits. CONDITION ON DISCHARGE: Stable. DISPOSITION: Discharge home. FOLLOWUP: Follow up with in 1 week, follow up with Dr. Parra in 1 week. All prescriptions given to the patient. Time spent in preparing discharge and coordinating care 60 minutes. Juliana Kay MD
--- NOTE | 2017-10-10 09:41 | PN ---
DATE: 10/08/2017 PULMONARY PROGRESS NOTE SUBJECTIVE: The patient feels great and is anxious to be discharged today. She will go back to [place]. She will continue to see her primary medical doctor, Dr. Melissa Arguello. I have discussed with her the necessity to make contact with sewage reticulation drafting officer regarding the biopsy results that are still pending at the time of discharge. PHYSICAL EXAMINATION: VITAL SIGNS: Stable. GENERAL: The patient is doing well. HEENT: Normocephalic, atraumatic. There are no bruit or jugular venous distention. CARDIOVASCULAR: Regular rhythm. S1, S2 without murmur, gallop or rub. ABDOMEN: Soft. Bowel sounds are normoactive without mass, guarding, rebound, organomegaly. EXTREMITIES: Reveal no clubbing, cyanosis or edema. There is no Homans sign. NEUROLOGIC: Exam reveals no focal findings. The patient is bedridden at this time. LYMPHADENOPATHY: Not present. LUNGS: Clear to percussion and auscultation. CLINICAL IMPRESSION: 1. Status post right upper lobe pneumonia. 2. Right lower lobe pulmonary nodule/mass. 3. Status post acute bronchitis. 4. Thyroid disease. PLAN: Patient is awaiting the results of the biopsy done recently. She will need these results to decide regarding further treatment. This cannot be done over the phone. She states that she will come up from [place] to see Dr. Parra when she sees Dr. Arguello. I have explained to her the necessity of close followup to make sure that the abnormalities resolved completely and that the pathology results have been evaluated and discussed with her. Further evaluation may be necessary and she needs to follow up with Dr. Parra's recommendations. She is aware and will be discharged today to be followed up with Dr. Parra in the near future. Kj Toro MD MTDKadie
--- NOTE | 2017-10-14 14:05 | PQF GENQUE ---
This form is a permanent part of the medical record DR. LOOMIS, As per path report "Invasive Adenocarcinoma-Lung", Please document in the record if you concur. Clarification of your documentation is requested to better reflect the severity of illness and intensity of treatment of your patient. Indicators present [] Specify: [] [] Specify: [] [] Specify: [] [] Specify: [] Location in the medical record that reflects the above clinical findings: [] Path Report Treatment Provided: [] PHYSICIAN'S RESPONSE Based on your medical judgment of the clinical indicators outlined above please clarify the following: [] Practitioner response [] If unable to determine, please check the box, sign and date. 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 In responding to this query, please exercise your independent professional judgment. The fact that a question is asked does not imply that any particular answer is desired or expected. Thank you for your clarification on this documentation. If you have any questions please call:[ ] * Thank you, [ X] HECTOR lead sprinkler DAVID
--- NOTE | 2017-10-19 11:32 | CP.PCM.PN ---
Subjective - Date & Time of Evaluation Date of Evaluation: 10/08/17 Time of Evaluation: 11:00 - Subjective Subjective: Seen and examined at the bedside, chart review. Patient with no complaints, attempted colon yesterday, colon scope advanced to sigmoid only stool noted. No acute overnight events as per nursing. Objective - Vital Signs/Intake and Output Vital Signs (last 24 hours): Temp Pulse Resp BP Pulse Ox 98 F 87 20 135/95 H 96 10/08/17 07:00 10/08/17 07:00 10/08/17 07:00 10/08/17 07:00 10/08/17 07:00 - Labs Labs: 10/07/17 06:45 10/07/17 06:45 PT 16.2 SECONDS (9.4-12.5) H 10/04/17 13:35 INR 1.40 (0.93-1.08) H 10/04/17 13:35 APTT 27.8 Seconds (25.1-36.5) 10/04/17 13:35 - Constitutional Appears: No Acute Distress - Head Exam Head Exam: NORMOCEPHALIC - Eye Exam Eye Exam: Normal appearance. absent: Scleral icterus - ENT Exam ENT Exam: Mucous Membranes Moist - Neck Exam Neck Exam: Normal Inspection - Respiratory Exam Respiratory Exam: Decreased Breath Sounds, Respiratory Distress, NORMAL BREATHING PATTERN - Cardiovascular Exam Cardiovascular Exam: +S1, +S2 - GI/Abdominal Exam GI & Abdominal Exam: Soft, Normal Bowel Sounds. absent: Guarding, Tenderness, Rebound - Extremities Exam Extremities Exam: absent: Calf Tenderness, Pedal Edema - Neurological Exam Neurological Exam: Alert, Awake, Oriented x3 - Skin Skin Exam: Dry, Warm Assessment and Plan - Assessment and Plan (Free Text) Assessment: ASSESSEMNT: Anemia, attempted colon, only advanced to sigmoid colon, stool noted Pneumonia EG junction polyp, follow-up pathology Lung nodule, status post lung biopsy PLAN: FU EGD pathology diet as tolerated follow-up lung BX today w/ Dr. Jimenez monitor H&H and for overt GI bleed Discussed with patient regarding elective outpatient colonoscopy on discharge Thank you for allowing us to participate in your patient's care.
== END 2017-10-08 15:32 | disposition home or self-care (01) | DRG 180 ==
LOC: ED 11:30 → ERH 15:17 → 5RSO 18:19
PROVIDERS: ADMIT Internal Medicine Nephrology; ATTEND Internal Medicine Nephrology
PROC: 30233N1 Transfusion of Nonautologous Red Blood Cells into Peripheral Vein, Percutaneous Approach (ICD-10-PCS; 2017-10-04)
PROC: 0DB48ZX Excision of Esophagogastric Junction, Via Natural or Artificial Opening Endoscopic, Diagnostic (ICD-10-PCS; 2017-10-05)
PROC: 3E0F7GC Introduction of Other Therapeutic Substance into Respiratory Tract, Via Natural or Artificial Opening (ICD-10-PCS; 2017-10-05)
PROC: 0BBF3ZX Excision of Right Lower Lung Lobe, Percutaneous Approach, Diagnostic (ICD-10-PCS; principal; 2017-10-06 15:00)
PROC: 0DJD8ZZ Inspection of Lower Intestinal Tract, Via Natural or Artificial Opening Endoscopic (ICD-10-PCS; 2017-10-07)
DX: C34.31 Malignant neoplasm of lower lobe, right bronchus or lung (principal); J18.9 Pneumonia, unspecified organism; D50.9 Iron deficiency anemia, unspecified; E03.9 Hypothyroidism, unspecified; J20.9 Acute bronchitis, unspecified; R91.1 Solitary pulmonary nodule; K29.50 Unspecified chronic gastritis without bleeding; K57.30 Diverticulosis of large intestine without perforation or abscess without bleeding; K64.8 Other hemorrhoids; K63.5 Polyp of colon; Z87.891 Personal history of nicotine dependence

== ENCOUNTER 2017-10-20 07:39 | Day surgery (SDC) | payer MEDICARE ==
[2017-10-12 10:44] VITALS: BMI 36.3
[2017-10-20] MEDS ORDERED: Propofol 10 mg/ml Inj (20 ML) ONE ×3 (08:49→10:43)
--- NOTE | 2017-10-20 11:04 | RAD ---
HISTORY: placement COMPARISON: No prior. FINDINGS: BOWEL: There is gaseous distension the colon. The colonoscope is seen in the placed in the mid transverse colon. The small bowel loops are normal in caliber. BONES: Normal. OTHER FINDINGS: None. IMPRESSION: The colonoscope is in place in the mid transverse colon. Mild gaseous distension of the colon.
[2017-10-20] MEDS ORDERED: Sodium Chloride 0.9% 1,000 ML IV SCH (11:15)
[2017-10-20 12:03] VITALS: BP 140/83; PULSE 65; RESP 16; TEMP 97.5; O2SAT 95
== END 2017-10-20 13:04 | disposition home or self-care (01) ==
LOC: ENDO 07:39
PROVIDERS: ATTEND Internal Medicine Gastroenterology
DX: C18.4 Malignant neoplasm of transverse colon (principal); D50.9 Iron deficiency anemia, unspecified; D12.5 Benign neoplasm of sigmoid colon; K62.1 Rectal polyp; K57.30 Diverticulosis of large intestine without perforation or abscess without bleeding; K64.8 Other hemorrhoids
CPT/HCPCS: 45381; 45385; 74018; 88305; J2704; J7040 ×2

== ENCOUNTER 2017-11-22 10:50 | Day surgery (SDC) | payer MEDICARE ==
[2017-11-22 11:27] VITALS: BMI 36.3
[2017-11-22 11:50] LABS: BASO # 0.07 K/mm3 (0.0-2.0); BASO % 0.8 % (0.0-3.0); EOS # 0.2 (0.0-0.7); EOS % 2.3 % (1.5-5.0); GRAN # 5.17 (1.4-6.5); GRAN % 61.9 % (50.0-68.0); HEMOGLOBIN 8.7 g/dL (12.0-16.0); LYMPH % 23.5 % (22.0-35.0); MEAN CELL VOLUME 76.3 fl (80.0-105.0); MEAN CORPUSCULAR HEMOGLOBIN 21.2 pg (25.0-35.0); MEAN CORPUSCULAR HGB CONC 27.8 g/dl (31.0-37.0); MEAN PLATELET VOLUME 8.6 fl (7.0-11.0); MONO % 11.5 % (1.0-6.0); RBC 4.1 10^6/uL (3.5-6.1); RED CELL DISTRIBUTION WIDTH 23.5 % (11.5-14.5); WHITE BLOOD COUNT 8.4 10^3/ul (4.5-11.0)
[2017-11-22] MEDS ORDERED: Propofol 10 mg/ml Inj (20 ML) ONE (13:54)
[2017-11-22] MEDS ORDERED: Sodium Chloride 0.9% 1,000 ML IV SCH (14:00)
[2017-11-22 15:23] VITALS: BP 133/71; PULSE 75; RESP 18; TEMP 98.6; O2SAT 97
== END 2017-11-22 15:37 | disposition home or self-care (01) ==
LOC: ENDO 10:50
PROVIDERS: ATTEND Internal Medicine Gastroenterology
DX: D50.9 Iron deficiency anemia, unspecified (principal); K20.9 Esophagitis, unspecified; K29.50 Unspecified chronic gastritis without bleeding
CPT/HCPCS: 36415; 43239; 85025; 88305; 88342; J2001; J2704; J7030; J7040

== ENCOUNTER 2018-06-07 18:33 | Inpatient (IN) | payer MEDICARE ==
[2018-06-07] MEDS ORDERED: Albuterol-Ipratrop 3 mg / 0.5 (3 ml) UD IH STA (19:04)
[2018-06-07 19:06] VITALS: BMI 36.4
[2018-06-07] MEDS ORDERED: Lidocaine 5% Patch TD STA (19:17)
--- NOTE | 2018-06-07 19:18 | ED PDOC ---
Arrival/HPI - General Chief Complaint: Chest Pain Time Seen by Provider: 06/07/18 19:03 Historian: Patient - History of Present Illness Narrative History of Present Illness (Text): 06/07/18 19:18 68 year old female whose past medical history includes anemia, hypothyroidism, arthritis, and lung cancer, who was instructed to present to the emergency department by and is complaining of acid reflux, vomiting, and mild c hest pressure which began earlier today. Patient admits to experiencing chills, non-bloody yellowish vomit, and wheezing. She reports having a recent fever of 101F that has resolved. She admits to feeling a mild chest pressure, and denies eating anything today, but admits to eating a salad last night. Of note her last bowel movement was yesterday and was normal. Patient notes she is on a chemother apy pill regimen for the past 90 days to treat her lung cancer. She mentions having inguinal/hip region pain, which she believes are an adverse reaction from her medication. Patient denies fevers, headache, dizziness, dyspnea on exertion, cough, abdominal pain, nausea, diarrhea, back pain, neck pain, or any other complaint. Of note she presented with her daughter. 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: Time/Duration: Other (Today) Symptom Onset: Sudden Symptom Course: Unchanged Context: Home Past Medical History - Provider Review Nursing Documentation Reviewed: Yes - Infectious Disease Hx of Infectious Diseases: None - Cardiac Hx Pacemaker: No - Pulmonary Hx Lung Cancer: Yes Hx Pneumonia: Yes (recently) - Neurological Hx Paralysis: No - HEENT Hx HEENT Disorder: Yes (eyeglasses) Hx Glaucoma: (pt denies) Other/Comment: pt denies glaucoma pt stated " I have pressure behind the eye."pt takes timolol eye drops - Endocrine/Metabolic Hx Hypothyroidism: Yes - Hematological/Oncological Hx Blood Transfusions: Yes Hx Blood Transfusion Reaction: No - Integumentary Other/Comment: multiple moles to neck and back and under breasts - Musculoskeletal/Rheumatological Hx Musculoskeletal Disorders: Yes - Gastrointestinal Hx Gastrointestinal Disorders: Yes (gi bleed 15 yrs ago cause unknown) Hx Gastroesophageal Reflux: Yes Other/Comment: colonoscopy 15 yrs ago polyps removed and 1 large polyp "shaved", obese - Psychiatric Hx Emotional Abuse: No Hx Physical Abuse: No Hx Substance Use: No - Anesthesia Hx Anesthesia Reactions: No Hx Malignant Hyperthermia: No - Suicidal Assessment Feels Threatened In Home Enviroment: No Family/Social History - Physician Review Nursing Documentation Reviewed: Yes Family/Social History: No Known Family HX Smoking Status: Never Smoked Hx Alcohol Use: No Hx Substance Use: No Allergies/Home Meds Allergies/Adverse Reactions: Allergies No Known Allergies Allergy (Verified 10/04/17 11:57) Home Medications: Home Meds Medication Instructions Recorded Confirmed Timolol 0.5% Ophth [Timoptic 0.5% 1 drop BOTHEYES BID 10/04/17 12/05/17 Ophth Soln] Cholecalciferol [Vitamin D 1000 IU] 2,000 units PO DAILY 10/12/17 12/05/17 Ferrous Sulfate [Feosol] 65 mg PO DAILY 10/12/17 12/05/17 Levothyroxine Sodium [Levothroid] 137 mcg PO DAILY 10/12/17 12/05/17 Levothyroxine [Synthroid] 125 mcg PO Q7D 10/12/17 12/05/17 Pantoprazole [Protonix EC Tab] 40 mg PO DAILY 10/20/17 12/05/17 Albuterol HFA [Ventolin HFA 90 2 puff IH QID PRN 11/10/17 12/05/17 mcg/actuation (8 g)] Review of Systems - Physician Review All systems were reviewed & negative as marked: Yes - Review of Systems Constitutional: Other (chills). absent: Fevers Respiratory: Wheezing Gastrointestinal: Vomiting (nonbloody, yellowish vomit). absent: Abdominal Pain Musculoskeletal: Myalgias (inguinal/hip pain) Physical Exam Vital Signs Reviewed: Yes Vital Signs Temp Pulse Resp BP Pulse Ox 06/07/18 19:00 98.4 F 67 18 121/62 95 Temperature: Afebrile Blood Pressure: Normal Pulse: Regular Respiratory Rate: Normal Appearance: Positive for: Well-Appearing Mental Status: Positive for: Alert and Oriented X 3 - Systems Exam Head: Present: Atraumatic, Normocephalic Pupils: Present: PERRL Extroacular Muscles: Present: EOMI Conjunctiva: Present: Normal Mouth: Present: Moist Mucous Membranes Neck: Present: Normal Range of Motion Respiratory/Chest: Present: Good Air Exchange, Wheezes (Expiratory wheeze at base of left lower lung.). No: Respiratory Distress, Accessory Muscle Use Cardiovascular: Present: Regular Rate and Rhythm, Normal S1, S2. No: Murmurs Abdomen: No: Tenderness (no tenderness to palpation of epigastric region), Distention, Peritoneal Signs Back: Present: Normal Inspection Upper Extremity: Present: Normal Inspection. No: Cyanosis, Edema Lower Extremity: Present: Normal Inspection, Tenderness (slgiht tenderness to right groin region), Other (no palpable bulges noted to right groin region.). No: Edema Neurological: Present: GCS=15, CN II-XII Intact, Speech Normal Skin: Present: Warm, Dry, Normal Color. No: Rashes Psychiatric: Present: Alert, Oriented x 3, Normal Insight, Normal Concentration Medical Decision Making ED Course and Treatment: 06/07/18 19:18 Impression: 68 year old female complaining of acid reflux, mild chest pressure, and yellowish vomit that started earlier today. Differential Diagnosis included but are not limited to: Gastritis PNA Bronchitis Sepsis Plan: -- EKG -- Chest X-ray --Zosyn --Pepcid -- Duonebs --Solumedrol -- Toradol -- Lidoderm -- Reassess and disposition Prior Visits: Notes and results from previous visits were reviewed. Progress Notes: 06/07/18 20:47 CXR reveals left lower lobe infiltrate with pleural effusion noted with leukocytosis of 15 and thrombocytosis of 576. Zosyn initiated. Spoke to Dr. Vargas(covering for Dr. Adames) who accepts patient under his service. - Lab Interpretations I have reviewed the lab results: Yes - RAD Interpretation Narrative RAD Interpretations (Text): 06/07/18 20:19 Chest X-ray shows left lower lobe focal consolidation with pleural effusion. Interpreted by me. Radiology Orders: 06/07/18 19:04 CHEST PORTABLE [RAD] Stat Commissions Specialist: ED Physician - EKG Interpretation EKG Interpretation (Text): 06/07/18 20:17 EKG shows NSR at 64 bpm with L[address]. No ST elevation. Interpreted by me. Interpreted by ED Physician: Yes Type: 12 lead EKG - Medication Orders Current Medication Orders: Discontinued Medications Albuterol/Ipratropium (Duoneb 3 Mg/0.5 Mg (3 Ml) Ud) 3 ml IH STAT STA Stop: 06/07/18 19:05 Last Admin: 06/07/18 19:14 Dose: 3 ml - Scribe Statement The provider has reviewed the documentation as recorded by the Laneyibjenaro Amador training with Jaren Martin Provider Scribe Attestation: All medical record entries made by the Scribe were at my direction and personally dictated by me. I have reviewed the chart and agree that the record accurately reflects my personal performance of the history, physical exam, medical decision making, and the department course for this patient. I have also personally directed, reviewed, and agree with the discharge instructions and disposition. Disposition/Present on Arrival - Present on Arrival Any Indicators Present on Arrival: No History of DVT/PE: No History of Uncontrolled Diabetes: No Urinary Catheter: No History of Decub. Ulcer: No History Surgical Site Infection Following: None - Disposition Have Diagnosis and Disposition been Completed?: Yes Diagnosis: Pneumonia, Thrombocytosis Disposition: HOSPITALIZED Disposition Time: 20:52 Patient Plan: Admission Condition: FAIR Referrals: Gabby Adames MD [Primary Care Provider] - Follow up with primary Forms: [employer] (Pakistani)
[2018-06-07 19:31] LABS: VENOUS BLOOD GAS BASE EXCESS 1.9 mmol/L (0.0-2.0); VENOUS BLOOD GAS PO2 46 mm/Hg (30-55); VENOUS BLOOD PH 7.36 (7.32-7.43)
[2018-06-07 19:43] LABS: ALB/GLOB RATIO 0.8 (1.1-1.8); ALBUMIN 3.3 g/dL (3.0-4.8); ALT/SGPT 48 U/L (7-56); AST/SGOT 36 U/L (14-36); BLOOD UREA NITROGEN 19 mg/dL (7-21); CALCIUM 8.2 mg/dL (8.4-10.5); GFR NON-AFRICAN AMERICAN > 60
[2018-06-07 19:49] LABS: B-TYPE NATRIURETIC PEPTIDE 232 pg/mL (0-450); BASO # 0.06 K/mm3 (0.0-2.0); BASO % 0.4 % (0.0-3.0); EOS # 0.1 (0.0-0.7); EOS % 0.9 % (1.5-5.0); GRAN # 10.63 (1.4-6.5); GRAN % 70.6 % (50.0-68.0); HEMOGLOBIN 11.1 g/dL (12.0-16.0); LYMPH # 2.1 (1.2-3.4); LYMPH % 13.9 % (22.0-35.0); MEAN CELL VOLUME 70.2 fl (80.0-105.0); MEAN CORPUSCULAR HEMOGLOBIN 20.9 pg (25.0-35.0); MEAN CORPUSCULAR HGB CONC 29.8 g/dl (31.0-37.0); MEAN PLATELET VOLUME 9.1 fl (7.0-11.0); MONO # 2.1 (0.1-0.6); MONO % 14.2 % (1.0-6.0); RBC 5.31 10^6/uL (3.5-6.1); RED CELL DISTRIBUTION WIDTH 18.6 % (11.5-14.5); WHITE BLOOD COUNT 15.1 10^3/ul (4.5-11.0)
[2018-06-07] MEDS ORDERED: Albuterol 0.083% Inhal Sol (2.5 mg/3 mL) UD INH STA (20:21)
[2018-06-07] MEDS ORDERED: Piperacill/Tazo 4.5gm in NS 4.5 GM/100 ML BAG IVPB STA (20:22)
[2018-06-07 21:21] LABS: FREE T4 1.27 ng/dL (0.78-2.19)
[2018-06-07] MEDS: Albuterol-Ipratrop 3 mg / 0.5 (3 ml) UD IH SCH (21:47)
[2018-06-07] MEDS ORDERED: Levothyroxine 125 MCG TAB PO SCH (21:49)
--- NOTE | 2018-06-08 04:35 | HP ---
DATE OF EXAM: 06/07/[address] Adames CHIEF COMPLAINT: Chills. HISTORY OF PRESENT ILLNESS: The patient is a 68-year-old female with known non-small cell CA of the lung of the right upper lobe, being treated by Dr. Adames, now admitted by the emergency room for new infiltrated left lower lobe with questionable early pneumonia, with the patient now sitting up on a gurney to be transferred to the floor for treatment as indicated. The patient reports she had a temperature of 101 earlier in the day with decreased appetite with some inguinal hip discomfort that was relieved by dose of Toradol earlier today. She otherwise accompanied by her daughter for evaluation and treatment as above. PAST MEDICAL HISTORY: Significant for hypothyroidism, anemia status post transfusion, DJD, right upper lobe non-small cell CA of the lung, adenocarcinoma, being treated with Xalkori, which will be on hold for now as per Dr. Solo's recommendations, obesity, and questionable mild dementia. FAMILY HISTORY AND SOCIAL HISTORY: Nonsmoker and non-ethanolic. Daughter is at the bedside. Otherwise noncontributory. ALLERGIES: NO KNOWN ALLERGIES. MEDICATIONS: Include timolol eyedrops which has discontinued, Protonix, Synthroid, Feosol, and albuterol. REVIEW OF SYSTEMS: A 12-point review of systems is done, which was negative to questioning except for items mentioned in the history of present illness as above. PHYSICAL EXAMINATION VITAL SIGNS: Temperature 98.4, pulse 67, respirations 18, blood pressure 121/62, pulse ox 95%. HEENT: Unremarkable.. NECK: Supple. HEART: Regular rate. LUNGS: Minimal decreased breath sounds on the left and right upper lobes. ABDOMEN: Obese, soft, nontender. EXTREMITIES: No edema. SKIN: Warm and dry. NEUROLOGIC: Awake and alert. LABORATORY DATA: The patient's labs were done. White blood cell count 15.1, hemoglobin 11.1, hematocrit 37.3, platelet count of 574,000. Chem metabolic panel showing non-fasting glucose of 113, calcium of 8.2, otherwise normal chem metabolic panel. TSH was done and was reported at 0.07. The patient had a chest x-ray, which was not read by the radiologist, but shows change in the right upper lobe and also left lower lobe with questionable consolidation. The patient had a PET CT scan done on 06/02/2018. Impression was stable FDG avid right lung mass lesion extending to the right hilum, stable right mediastinal FDG avid lymphadenopathy, increased FDG uptake noted in the left hepatic flexure and descending colon. They represent physiologic uptake. ASSESSMENT: For this patient is that of questionable early pneumonia versus bronchitis, non-small cell cancer of the lung, adenocarcinoma right upper lobe, on Xalkori on hold, questionable glaucoma, chronic obstructive pulmonary disease, hypothyroidism, and gastroesophageal reflux disease. PLAN: The plan for this patient after conversation with Dr. Adames is to continue her present medical regimen. We will ask for consult with Dr. Parra with continuation of IV versus oral antibiotics as indicated with observation overnight and IV antibiotics to be given. We will also continue her DuoNeb; however, we will hold her Synthroid for now and repeat a TSH soon with restart of her Synthroid as per Dr. Adames's recommendation. We will give tramadol for pain and monitor clinically and with labs. This is a complex patient with a comprehensive medically necessary and appropriate visit carried out in excess of 60 minutes with the patient's questions answered to her satisfaction. Gerard Gibson MD
[2018-06-08] MEDS ORDERED: Levothyroxine 125 MCG TAB PO SCH (06:00)
[2018-06-08] MEDS: Pantoprazole 40 mg EC Tab PO SCH (06:18)
[2018-06-08] MEDS ORDERED: Barium Sulfate Susp 2.1% w/v, 2.0% w/w 450 mL Bottle PO ONE (07:05)
[2018-06-08 07:16] LABS: ALB/GLOB RATIO 0.8 (1.1-1.8); CALCIUM 8.3 mg/dL (8.4-10.5)
[2018-06-08 07:17] LABS: BASO # 0.01 K/mm3 (0.0-2.0); BASO % 0.1 % (0.0-3.0); EOS # 0.1 (0.0-0.7); EOS % 0.6 % (1.5-5.0); GRAN # 6.18 (1.4-6.5); GRAN % 71.5 % (50.0-68.0); HEMOGLOBIN 10.4 g/dL (12.0-16.0); LYMPH % 11.7 % (22.0-35.0); MEAN CELL VOLUME 70.1 fl (80.0-105.0); MEAN CORPUSCULAR HEMOGLOBIN 20.8 pg (25.0-35.0); MEAN CORPUSCULAR HGB CONC 29.6 g/dl (31.0-37.0); MEAN PLATELET VOLUME 8.9 fl (7.0-11.0); MONO # 1.4 (0.1-0.6); MONO % 16.1 % (1.0-6.0); RBC 5.01 10^6/uL (3.5-6.1); RED CELL DISTRIBUTION WIDTH 18.8 % (11.5-14.5); WHITE BLOOD COUNT 8.6 10^3/ul (4.5-11.0)
[2018-06-08] MEDS: Vancomycin 1gm in NS 250ml 1 GM/250 ML BAG IVPB SCH ×2 (08:48→21:07)
--- NOTE | 2018-06-08 09:16 | CP.PCM.PN ---
Subjective - Date & Time of Evaluation Date of Evaluation: 06/08/18 Time of Evaluation: 09:16 - Subjective Subjective: Hematology/Oncology Progress Note (Dr. Adames's Service) Patient seen and assessed at bedside. No acute events noted overnight. Patient reports that she has chest congestion intermittently that is helped with PO Robitussin DM at home. Patient denies any complaints at this time including fevers, chills, headache, chest pain, SOB, abdominal pain, N/V/D/C, changes in urine output, skin changes or any numbness/tingling of any extremity. Objective - Vital Signs/Intake and Output Vital Signs (last 24 hours): Temp Pulse Resp BP Pulse Ox 97.7 F 58 L 18 107/65 96 06/08/18 06:00 06/08/18 06:00 06/08/18 06:00 06/08/18 06:00 06/08/18 06:00 Intake and Output: 06/08/18 06/08/18 06:59 18:59 Intake Total 240 Balance 240 - Medications Medications: Current Medications Acetaminophen (Tylenol 325mg Tab) 650 mg PO Q4 PRN PRN Reason: Fever >100.4 F Albuterol/Ipratropium (Duoneb 3 Mg/0.5 Mg (3 Ml) Ud) 3 ml IH TIDRESP JOHN Last Admin: 06/07/18 21:47 Dose: 3 ml Budesonide (Pulmicort Respules) 0.5 mg IH [id number] JOHN Doxycycline Hyclate 100 mg/ (Sodium Chloride) 100 mls @ 100 mls/hr IVPB Q12 JOHN; Protocol Stop: 06/17/18 10:01 Vancomycin HCl (Vancomycin 1gm) 1 gm in 250 mls @ 167 mls/hr IVPB Q12H JOHN; Protocol Stop: 06/17/18 08:01 Last Admin: 06/08/18 08:48 Dose: 167 mls/hr Piperacillin Sod/Tazobactam Sod (Zosyn 3.375 In Ns 100ml) 100 mls @ 25 mls/hr I VPB Q8 JOHN; Protocol Stop: 06/16/18 14:01 Levothyroxine Sodium (Synthroid) 125 mcg PO 0600 JOHN Pantoprazole Sodium (Protonix Ec Tab) 40 mg PO 0600 JOHN Last Admin: 06/08/18 06:18 Dose: 40 mg Tramadol HCl (Ultram) 50 mg PO Q8H PRN PRN Reason: Pain, moderate (4-7) - Labs Labs: 06/08/18 06:30 06/08/18 06:30 - Constitutional Appears: Non-toxic, No Acute Distress - Head Exam Head Exam: ATRAUMATIC, NORMOCEPHALIC - Eye Exam Eye Exam: EOMI, Normal appearance - ENT Exam ENT Exam: Mucous Membranes Moist - Neck Exam Neck Exam: Full ROM, Normal Inspection. absent: Lymphadenopathy, Meningismus, T enderness, Thyromegaly - Respiratory Exam Respiratory Exam: Clear to Ausculation Bilateral, NORMAL BREATHING PATTERN. absent: Accessory Muscle Use, Rales, Rhonchi, Wheezes, Respiratory Distress - Cardiovascular Exam Cardiovascular Exam: RRR, +S1, +S2 - GI/Abdominal Exam GI & Abdominal Exam: Soft, Normal Bowel Sounds. absent: Distended, Firm, Guarding, Rigid, Tenderness - Extremities Exam Extremities Exam: Pedal Edema (Minimal trace pitting edema bilaterally extending to ankle). absent: Calf Tenderness, Joint Swelling - Neurological Exam Neurological Exam: Alert, Awake, Normal Gait, Oriented x3 - Psychiatric Exam Psychiatric exam: Normal Affect, Normal Mood - Skin Skin Exam: Dry, Intact, Normal Color, Warm Assessment and Plan - Assessment and Plan (Free Text) Assessment: 68 year old female with a past medical history significant for NSCLC on Xalkori, colonic adenocarcinoma s/p partial colectomy, and obesity who presented with fever of 101 at home and found to have questionable new left lower lobe pneumonia. Patient is currently on Vancomycin, Zosyn and Doxycycline. ID and Pulmonology consulted. Plan: 1. LLL Pneumonia -Chest X-Ray (portable) showed LLL pneumonia -Chest X-Ray (PA/Lateral) pending -Influenza, legionella and procalcitonin negative -Blood and sputum cultures pending -Continue Vancomycin, Zosyn and Doxycycline -Continue Dunonebs TID and Pulmicort Q12 -Continue Robitussin DM and Tylenol PRN -ID and Pulmonology consulted, all recommendations appreciated 2. Non-sustained Ventricular Tachycardia -10 beats of ventricular tachycardia noted on telemetry monitoring -Patient complaining of intermittent chest pain -Three serial troponins Q6H pending -Cardiology consulted, all recommendations appreciated 3. Epigastric Pain -Continue Protonix -GI consulted, all recommendations appreciated 4. History of NSCLC -Continue home Xalkori 250mg daily -Listed as "Home Medication" in OCT 5. History of Hypothyroidism -Continue home Synthroid -TSH pending 6. Intermittent Thigh Pain -Continue Ultram PRN GI Prophylaxis: Protonix DVT Prophylaxis: Heparin and SCD's Diet: Heart Healthy Patient seen and case discussed with attending, Dr. Adames. Ramón España PGY2
--- NOTE | 2018-06-08 09:20 | RAD ---
Date of service: 06/07/2018 HISTORY: shortness of breath COMPARISON: CT chest from 11/19/2017 FINDINGS: LUNGS: The lungs are well inflated. There is airspace disease in the right upper lobe and asymmetric enlargement of the right hilum. The left lung is clear. PLEURA: No pleural effusions or pneumothorax. CARDIOVASCULAR: Mild cardiomegaly. Atherosclerotic aortic arch calcifications are present. OSSEOUS STRUCTURES: Within normal limits for the patient's age. VISUALIZED UPPER ABDOMEN: Normal. OTHER FINDINGS: None. IMPRESSION: Airspace disease in the right upper lobe which may represent pneumonia. Asymmetric enlargement of the right hilum likely related to mass/adenopathy.
[2018-06-08] MEDS ORDERED: Cefepime IV 2 gm in NS 2 GM/100 ML BAG IVPB SCH (10:00)
[2018-06-08] MEDS: Albuterol-Ipratrop 3 mg / 0.5 (3 ml) UD IH SCH ×3 (10:15→19:55)
[2018-06-08] MEDS: Budesonide 0.5 mg/2 ml Inhal Susp UD IH SCH ×2 (10:15→19:55)
--- NOTE | 2018-06-08 10:46 | CARD ---
APPROVED REPORT Date of service: 06/07/2018 EKG Measurement Heart [id number] <Conclusion> Normal sinus rhythm Left axis deviation NSSTW changes, new
[2018-06-08 10:55] LABS: URINE BILIRUBIN NEGATIVE (NEGATIVE); URINE BLOOD NEGATIVE (NEGATIVE); URINE GLUCOSE (UA) NEGATIVE (NEGATIVE); URINE LEUKOCYTE ESTERASE NEGATIVE Leu/uL (NEGATIVE); URINE PROTEIN NEGATIVE mg/dL (<30 mg/dL); URINE UROBILINOGEN 0.2 E.U./dL (<1 E.U./dL)
[2018-06-08 11:04] LABS: URINE APPEARANCE CLEAR (CLEAR); URINE COLOR YELLOW (YELLOW)
[2018-06-08] MEDS ORDERED: guaiFENesin DM 200 mg-20 mg/10 ml UD PO PRN (13:25)
[2018-06-08] MEDS: Piperacillin/Tazobact 3.375 gm 100 ML IVPB SCH (14:14)
--- NOTE | 2018-06-08 14:14 | CT ---
Date of service: 06/08/2018 PROCEDURE: CT Abdomen and Pelvis without intravenous contrast HISTORY: r/o gb ds COMPARISON: 10/29/2017 TECHNIQUE: Technique. Contrast dose: Radiation dose: Total exam DLP = 1027.98 mGy-cm. This CT exam was performed using one or more of the following dose reduction techniques: Automated exposure control, adjustment of the mA and/or kV according to patient size, and/or use of iterative reconstruction technique. FINDINGS: LOWER THORAX: Unremarkable. LIVER: Unremarkable. No gross lesion or ductal dilatation. GALLBLADDER AND BILE DUCTS: Multiple large calcified gallstones without gross wall thickening or pericholecystic fluid. PANCREAS: Stable 13 millimeters cystic lesion in the pancreatic tail. No gross lesion or ductal dilatation. SPLEEN: Unremarkable. ADRENALS: Unremarkable. No mass. KIDNEYS AND URETERS: Unremarkable. No hydronephrosis. No solid mass. VASCULATURE: Unremarkable. No aortic aneurysm. Aortic calcifications present. BOWEL: Left-sided colonic diverticulosis. APPENDIX: Unremarkable. Normal appendix. PERITONEUM: Unremarkable. No free fluid. No free air. LYMPH NODES: Unremarkable. No enlarged lymph nodes. BLADDER: Unremarkable. REPRODUCTIVE: Unremarkable. BONES: No acute fracture. OTHER FINDINGS: None. IMPRESSION: Multiple large calcified gallstones without gross wall thickening or pericholecystic fluid. Stable 13 millimeters cystic lesion in the pancreatic tail. No gross lesion or ductal dilatation. Colonic diverticulosis.
--- NOTE | 2018-06-08 17:39 | CON ---
DATE: 06/08/2018 Patient seen in bed earlier this morning. Patient seen in room 270, bed 2. CHIEF COMPLAINT: Fever times one to two days' duration. HISTORY OF PRESENT ILLNESS: This is a 68-year-old female with past medical history significant for lung cancer stage IV, also colon cancer. The patient's lung cancer is a non-small cell cancer of the right upper lobe which is being treated with Dr. Adames and the patient also has colon cancer discovered on colonoscopy and had a resection in October. The patient also has thyroid disease, who is now admitted through the emergency room with a fever and chills and cough. She also had nonbloody vomit. The patient also with shortness of breath and poor appetite. REVIEW OF SYSTEMS: A 12-point review of systems is performed. PAST MEDICAL HISTORY: Significant for non-small cell stage IV lung cancer, colon cancer and thyroid disease. According to emergency room, the patient had a colonoscopy with polyps 15 years ago, had polypectomy. She denies any dysuria or frequency. No headaches or blurred vision now. The patient does have hypothyroidism. ALLERGIES: THE PATIENT HAS NO KNOWN ALLERGIES. Dr. Adames's progress note from November states that the patient has colon cancer and lung cancer and hypothyroidism. The patient had colon resection at that time. She has had symptomatic anemia requiring transfusions. HOME MEDICATIONS: Medications at home are reviewed. PHYSICAL EXAMINATION GENERAL: On exam, the patient is in bed in no acute distress; however, she is weak. VITAL SIGNS: She had a temperature of 98 in the emergency room. The patient had a heart rate of 72 and respiratory rate of 18. Her blood pressure is 130/50. The patient is saturating at 95% on room air. HEENT: Unremarkable. NECK: Supple. LUNGS: Have decreased breath sounds. HEART: Normal, S1 and S2. ABDOMEN: Soft and nontender. LABORATORY DATA: Reveals the patient's white count of 15,100 and hemoglobin of 11. Chemistry reveals a BUN of 19 and creatinine of 0.9. BNP is noted. Alk phos is 146. No urinalysis is available. Chest x-ray result is not available. ASSESSMENT AND PLAN: A 68-year-old female with non-small cell stage IV lung cancer, colon cancer, hypothyroidism, anemia, history of healthcare-associated pneumonia presenting with fevers, chills, nausea, vomiting, cough and leucocytosis, elevated alkaline phosphate. I spoke to Dr. Harris Parra reviewed the x-ray. He does not feel the patient has pneumonia. We will order a CAT scan of the abdomen and pelvis. We will start the patient on vancomycin, Zosyn, and doxycycline pending pancultures and CT. We will also order an influenza, procalcitonin, urinalysis, urine culture and methicillin-resistant Staphylococcus aureus screen and will make further recommendations. Bayron Rooney MD
[2018-06-08] MEDS: CRIZOTINIB 250 MG PO SCH (18:16)
--- NOTE | 2018-06-08 18:41 | CON ---
DATE: 06/08/2018 REASON FOR PULMONARY CONSULTATION: Rule out pneumonia. REFERRING PHYSICIAN: Gerard Gibson MD HISTORY OF PRESENT ILLNESS: The patient is a chronically ill 68-year-old female, with past medical history significant for advanced [id number] lung cancer, advanced chronic obstructive pulmonary disease, thyroid disease, anemia, who presents to [facility] with one-day history of nausea, vomiting, weakness, and low grade fevers. The patient is not short of breath at rest. She does have chronic dyspnea on exertion - unchanged. There is no history of cough or sputum production. There is no history of chest pain, coughing up of blood, or chest pain - made worse with deep respirations. As above, the patient did present with fevers. There were also some chills experienced at home. No known infectious exposure. No history of night sweats, weight loss or appetite change prior to the above events. No history of calf pains. No history of syncope or diaphoresis. No history of recent travel or trauma. REVIEW OF SYSTEMS: No acute urinary symptoms. No new neurologic complaints. The patient does have chronic musculoskeletal complaints. Rest of the review of systems is negative. ALLERGIES NO KNOWN ALLERGIES. SOCIAL HISTORY: Positive for tobacco and negative for alcohol. FAMILY HISTORY: No inheritable diseases. HOME MEDICATIONS: Include Breo Ellipta, Protonix, Synthroid. PHYSICAL EXAMINATION: GENERAL: The patient appears quite comfortable at rest. She is not short of breath. VITALS: Temperature is 97.9, pulse 61, respirations 16, blood pressure 130/54. Oxygen saturation on room air is 98%. HEENT: Normocephalic, atraumatic. No JVD. CARDIOVASCULAR: Positive S1, S2. No S3 gallop. LUNGS: Decreased breath sounds at the bases. Minimal rhonchi. No wheezing. EXTREMITIES: Mild edema. No cyanosis, no clubbing. Calves are nontender to palpation. GASTROINTESTINAL: Abdomen is soft, nontender and nondistended. Bowel sounds are positive. SKIN: No acute rash. NEUROLOGIC: Exam limited at the present time. PERTINENT LABORATORY DATA: Chest x-ray was done last night and reviewed. Official results are pending. I have also compared the most recent film to the film done on 10/04/2017. Compared to the previous film, there is less right upper lobe density on yesterday's film. I do not appreciate any new or significant lobar changes. CBC: White count 15.1K, hemoglobin 11.1, hematocrit 37.3, platelets of 574,000. Complete metabolic profile: Glucose 113, calcium 8.2, alkaline phosphatase 146. Rest of the metabolic profile Is within normal limits. IMPRESSION: 1. Sepsis syndrome. 2. Rule out viral syndrome, rule out pneumonia. 3. Advanced lung cancer. 4. Advanced chronic obstructive pulmonary disease. 5. Anemia. PLAN I did discuss the case with the night nurse at length. I have also reviewed the chart at length, and discussed case with the patient at length. The patient presents to [facility] with a 1-day history of nausea, vomiting, fatigue, and fevers. She does not offer any new or significant pulmonary symptoms. I did review the chest x-ray as above. Again, I do not appreciate any new or significant lobar infiltrates. Official results are pending. The patient also had a CAT scan of the chest (done as a PET CT scan on 06/02/2018). There were no new or significant acute findings noted. Garcia cultures have been ordered will be analyzed when feasible. Dr. Rooney (Infectious Disease) has been called on the case for antibiotic usage. I did discuss the case with Dr. Rooney this morning. On physical exam, there is no significant bronchospasm noted. In addition, the oxygen saturation on room air is 98%. I will continue the current nebulizer treatments and add inhaled Pulmicort this morning. The patient is on Breo Ellipta at home. Repeat a.m. labs are pending. The patient does state to feeling better this morning, and is clinically improved. Additional pulmonary intervention will be based on the above results, as well as the clinical status of the patient. I will discuss the above with the attending physician later this morning. Thank you very much for this pulmonary consultation. Harris Parra MD DAVID
[2018-06-09] MEDS: Piperacillin/Tazobact 3.375 gm 100 ML IVPB SCH ×3 (00:04→14:24)
[2018-06-09] MEDS: Pantoprazole 40 mg EC Tab PO SCH (05:32)
[2018-06-09 06:52] LABS: EOS # 0.1 (0.0-0.7); EOS % 0.5 % (1.5-5.0); GRAN # 7.82 (1.4-6.5); GRAN % 80.8 % (50.0-68.0); HEMOGLOBIN 9.9 g/dL (12.0-16.0); LYMPH # 0.9 (1.2-3.4); LYMPH % 9.2 % (22.0-35.0); MEAN CORPUSCULAR HEMOGLOBIN 20.8 pg (25.0-35.0); MEAN CORPUSCULAR HGB CONC 29.3 g/dl (31.0-37.0); MEAN PLATELET VOLUME 9.2 fl (7.0-11.0); MONO # 0.9 (0.1-0.6); MONO % 9.5 % (1.0-6.0); RBC 4.76 10^6/uL (3.5-6.1); RED CELL DISTRIBUTION WIDTH 18.8 % (11.5-14.5); WHITE BLOOD COUNT 9.7 10^3/uL (4.5-11.0)
--- NOTE | 2018-06-09 07:24 | PN ---
DATE: 06/09/2018 PULMONARY NOTE SUBJECTIVE: The patient appears comfortable this morning. She is not short of breath at rest. PHYSICAL EXAMINATION: VITAL SIGNS: Temperature is 97.9, pulse 59, respirations 18-20, blood pressure 147/73. Oxygen saturation on room air is 94%. HEENT: Normocephalic, atraumatic. No JVD. CARDIOVASCULAR: Positive S1, S2. No S3 gallop. LUNGS: Clear bilaterally this morning. EXTREMITIES: Mild edema. No cyanosis, no clubbing. Calves are nontender to palpation. GASTROINTESTINAL: Abdomen is soft, nontender, and nondistended. Bowel sounds are positive. SKIN: No acute rash. NEUROLOGIC: Limited at the present time. PERTINENT LABORATORY DATA: Abdominal and pelvic CAT scan was done yesterday. The lower thorax is unremarkable. Chest x-ray was also done yesterday. There are no significant lobar infiltrates noted. Official results are pending. Procalcitonin done yesterday - negative - 0.18. IMPRESSION: 1. Sepsis syndrome. 2. Rule out viral syndrome, pneumonia less likely. 3. Advanced lung cancer. 4. Advanced chronic obstructive pulmonary disease. 5. Anemia. 6. Ventricular tachycardia. PLAN: The patient appears comfortable this morning. She is not short of breath at rest. She does state to feeling much better overall. I did discuss the case with the night nurse at length. The night nurse stated that the patient had a very good night. However, the night nurse did inform me that the patient did experience ventricular tachycardia (approximately 10 beats) late yesterday afternoon. On physical exam, her bronchospasm has primarily resolved. In addition, there is no significant alveolar-arterial gradient. I will change the nebulizer treatments to half-strength Xopenex (given the ventricular tachycardia), and continue with the inhaled steroids. I would continue with the antibiotic coverage as per Infectious Disease. Input by Dr. Rooney is noted. Temperatures have now fully resolved. The leukocytosis has also fully resolved. Given the above data, pneumonia appears less likely at this point in time. Cardiology evaluation has been ordered. Clinical status of the patient is certainly improved - compared to the initial presentation. However, the future status/prognosis for this patient remains very guarded at best. I will discuss the above with the attending physician later this morning. Harris Parra MD [place] # [id number] DAVID
[2018-06-09 07:25] LABS: ALB/GLOB RATIO 0.8 (1.1-1.8); ALBUMIN 2.9 g/dL (3.0-4.8); ALT/SGPT 44 U/L (7-56); AST/SGOT 25 U/L (14-36); BLOOD UREA NITROGEN 20 mg/dL (7-21); CALCIUM 8.1 mg/dL (8.4-10.5); GFR NON-AFRICAN AMERICAN > 60
[2018-06-09 07:29] LABS: TROPONIN I < 0.01 ng/mL
--- NOTE | 2018-06-09 07:50 | CP.PCM.CON ---
<Dejuan Garvey R - Last Filed: 06/09/18 17:56> History of Present Illness - History of Present Illness History of Present Illness: PGY-2 GI consult note for Dr Rosado 68 year old female whose past medical history includes anemia, hypothyroidism, arthritis, colon cancer, and non-small cell lung cancer of the right upper lobe, who was instructed to present to the emergency department by and is complaining of acid reflux, vomiting, and mild chest pressure which began 1 day prior to presentation. Patient admits to experiencing chills, non-bloody yellowish vomit, and wheezing. She reports having a recent fever of 101F that has resolved. She admits to feeling a mild chest pressure, and denies eating anything today, but admits to eating a salad last night. Of note her last bowel movement was yesterday and was normal. Patient notes she is on a chemotherapy pill regimen for the past 90 days to treat her lung cancer. 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 absent: Dyspnea - Gastrointestinal Gastrointestinal: Abdominal Pain - Genitourinary Genitourinary: absent: Dysuria - Musculoskeletal Musculoskeletal: Back Pain Past Patient History - Infectious Disease Hx of Infectious Diseases: None - Past Social History Smoking Status: Never Smoked - CARDIAC Hx Hypercholesterolemia: Yes - PULMONARY Hx Pneumonia: Yes - NEUROLOGICAL Hx Paralysis: No - HEENT Hx HEENT Problems: Yes (Glasses) - ENDOCRINE/METABOLIC Hx Hypothyroidism: Yes - HEMATOLOGICAL/ONCOLOGICAL Hx Cancer: Yes (Lung) - INTEGUMENTARY Other/Comment: moles - MUSCULOSKELETAL/RHEUMATOLOGICAL Hx Arthritis: Yes (Knee and Wrist) Hx Back Pain: Yes (Sciatica) Hx Falls: No - GASTROINTESTINAL Hx Gastrointestinal Disorders: Yes (GI bleed 20 yrs ago) Hx Gastroesophageal Reflux: Yes - PSYCHIATRIC Hx Substance Use: No - SURGICAL HISTORY Hx Surgeries: Yes - ANESTHESIA Hx Anesthesia Reactions: No Hx Malignant Hyperthermia: No Meds Allergies/Adverse Reactions: Allergies Allergy/AdvReac Type Severity Reaction Status Date / Time No Known Allergies Allergy Verified 10/04/17 11:57 - Medications Medications: Current Medications Acetaminophen (Tylenol 325mg Tab) 650 mg PO Q4 PRN PRN Reason: Fever >100.4 F Budesonide (Pulmicort Respules) 0.5 mg IH [id number] [facility] Last Admin: 06/08/18 19:55 Dose: 0.5 mg Guaifenesin/Dextromethorphan (Robitussin Dm) 10 ml PO Q4H PRN PRN Reason: Cough Heparin Sodium (Porcine) (Heparin) 5,000 units SC Q8 JOHN; Protocol Home Med (Home Med) 1 unit PO BID JOHN Last Admin: 06/08/18 18:16 Dose: 1 unit Doxycycline Hyclate 100 mg/ (Sodium Chloride) 100 mls @ 100 mls/hr IVPB Q12 JOHN; Protocol Stop: 06/17/18 10:01 Last Admin: 06/08/18 22:46 Dose: 100 mls/hr Vancomycin HCl (Vancomycin 1gm) 1 gm in 250 mls @ 167 mls/hr IVPB Q12H JOHN; Protocol Stop: 06/17/18 08:01 Last Admin: 06/08/18 21:07 Dose: 167 mls/hr Piperacillin Sod/Tazobactam Sod (Zosyn 3.375 In Ns 100ml) 100 mls @ 25 mls/hr IVPB Q8 JOHN; Protocol Stop: 06/16/18 14:01 Last Admin: 06/09/18 05:31 Dose: 25 mls/hr Levalbuterol HCl (Xopenex) 0.63 mg IH TIDRESP JOHN Levothyroxine Sodium (Synthroid) 125 mcg PO 0600 JOHN Pantoprazole Sodium (Protonix Ec Tab) 40 mg PO 0600 [facility] Last Admin: 06/09/18 05:32 Dose: 40 mg Tramadol HCl (Ultram) 50 mg PO Q8H PRN PRN Reason: Pain, moderate (4-7) Physical Exam - Constitutional Appears: Well, No Acute Distress Additional comments: morbid obesity - Head Exam Head Exam: ATRAUMATIC, NORMAL INSPECTION - Eye Exam Eye Exam: EOMI, Normal appearance, PERRL. absent: Scleral icterus - ENT Exam ENT Exam: Mucous Membranes Moist - Neck Exam Neck exam: Positive for: Normal Inspection - Respiratory Exam Respiratory Exam: Clear to Auscultation Bilateral. absent: Rales, Rhonchi, Wheezes - Cardiovascular Exam Cardiovascular Exam: REGULAR RHYTHM, +S1, +S2. absent: JVD, Systolic Murmur - GI/Abdominal Exam GI & Abdominal Exam: Normal Bowel Sounds, Soft. absent: Distended, Firm, Guarding, Tenderness - Extremities Exam Extremities exam: Positive for: normal inspection - Neurological Exam Neurological exam: Alert, Oriented x3 - Skin Skin Exam: Normal Color, Warm Results - Vital Signs Recent Vital Signs: Last Vital Signs Temp 97.9 F 06/09/18 06:00 Pulse 60 06/09/18 06:00 Resp 20 06/09/18 06:00 BP 147/73 06/09/18 06:00 Pulse Ox 94 L 06/09/18 06:00 - Labs Result Diagrams: 06/09/18 06:00 06/09/18 06:00 Labs: Laboratory Results - last 24 hr 06/08/18 06/08/18 06/08/18 08:55 10:40 10:40 WBC RBC Hgb Hct MCV MCH MCHC RDW Plt Count MPV Gran % Lymph % (Auto) [place] % (Auto) Eos % (Auto) Baso % (Auto) Gran # Lymph # (Auto) [place] # (Auto) Eos # (Auto) Baso # (Auto) Sodium Potassium Chloride Carbon Dioxide Anion Gap BUN Creatinine Est GFR ( Amer) Est GFR (Non-Af Amer) Random Glucose Calcium Phosphorus Magnesium Total Bilirubin AST ALT Alkaline Phosphatase Troponin I Total Protein Albumin Globulin Albumin/Globulin Ratio Procalcitonin 0.18 L Urine Color Yellow Urine Appearance Clear Urine pH 6.0 Ur Specific [place] 1.020 Urine Protein Negative Urine Glucose (UA) Negative Urine Ketones Negative Urine Blood Negative Urine Nitrate Negative Urine Bilirubin Negative Urine Urobilinogen 0.2 Ur Leukocyte Esterase Negative Influenza Typ A,B (EIA) Negative for flu a/b Ur L.pneumophila Ag 06/08/18 06/08/18 06/08/18 10:40 19:17 23:35 WBC RBC Hgb Hct MCV MCH MCHC RDW Plt Count MPV Gran % Lymph % (Auto) [place] % (Auto) Eos % (Auto) Baso % (Auto) Gran # Lymph # (Auto) [place] # (Auto) Eos # (Auto) Baso # (Auto) Sodium Potassium Chloride Carbon Dioxide Anion Gap BUN Creatinine Est GFR ( Amer) Est GFR (Non-Af Amer) Random Glucose Calcium Phosphorus Magnesium Total Bilirubin AST ALT Alkaline Phosphatase Troponin I < 0.01 < 0.01 Total Protein Albumin Globulin Albumin/Globulin Ratio Procalcitonin Urine Color Urine Appearance Urine pH Ur Specific [place] Urine Protein Urine Glucose (UA) Urine Ketones Urine Blood Urine Nitrate Urine Bilirubin Urine Urobilinogen Ur Leukocyte Esterase Influenza Typ A,B (EIA) Ur L.pneumophila Ag Negative 06/09/18 06/09/18 06:00 06:00 WBC 9.7 RBC 4.76 Hgb 9.9 L Hct 33.8 L MCV 71.0 L MCH 20.8 L MCHC 29.3 L RDW 18.8 H Plt Count 553 H MPV 9.2 Gran % 80.8 H Lymph % (Auto) 9.2 L [place] % (Auto) 9.5 H Eos % (Auto) 0.5 L Baso % (Auto) 0.0 Gran # 7.82 H Lymph # (Auto) 0.9 L [place] # (Auto) 0.9 H Eos # (Auto) 0.1 Baso # (Auto) 0.00 Sodium 139 Potassium 4.3 Chloride 109 H Carbon Dioxide 25 Anion Gap 9 L BUN 20 Creatinine 0.9 Est GFR ( Amer) > 60 Est GFR (Non-Af Amer) > 60 Random Glucose 122 H Calcium 8.1 L Phosphorus 3.0 Magnesium 2.1 Total Bilirubin 0.2 AST 25 ALT 44 Alkaline Phosphatase 121 Troponin I < 0.01 Total Protein 6.6 Albumin 2.9 L Globulin 3.7 Albumin/Globulin Ratio 0.8 L Procalcitonin Urine Color Urine Appearance Urine pH Ur Specific [place] Urine Protein Urine Glucose (UA) Urine Ketones Urine Blood Urine Nitrate Urine Bilirubin Urine Urobilinogen Ur Leukocyte Esterase Influenza Typ A,B (EIA) Ur L.pneumophila Ag Assessment & Plan - Assessment and Plan (Free Text) Plan: Mrs White is a 68 year old female with a PMHx of anemia, hypothyroidism, arthritis, colon cancer, and non-small cell lung cancer of the right upper lobe, who presented to the ED complaining of acid reflux, vomiting, and mild chest pressure which began 1 day prior to presentation Epigastric Pain -CT abd/pelvis w/ po contrast: * Multiple large calcified gallstones without gross wall thickening or pericholecystic fluid. Stable 13 millimeters cystic lesion in the pancreatic tail. No gross lesion or ductal dilatation. Colonic diverticulosis. -most recent PET scan showed increased FDG uptake at left hepatic flexure and descending colon -continue protonix 40mg po qd -plan outpatient EGD and colonoscopy soon - Dr Rosado to discuss with Dr Adames prior to scheduling Hx of Adenocarcinoma of the Colon -discovered in 11/2017 - pathology showed adenocarcinoma of proximal colon and hyperplastic polyp of rectum -s/p colon resection -most recent PET scan 05/2018 showed increased FDG uptake at left hepatic fl exure and descending colon -plan outpatient EGD and colonoscopy soon - Dr Rosado to discuss with Dr Adames prior to scheduling Previous GI procedures: -EGD 11/2017 - LA grade A esophagitis, enlarged gastric folds, chronic gastritis -Colonoscopy 11/2017 - one 5mm rectal polyp, diverticulosis, internal hemorrhoids, large ulcerated circumferential partically obstructing lesion in proximal transvese colon, one 12 mm polyp in distal transverse colon, one 8mm sigmoid polyp, one 6mm sigmoid polyp -EGD 09/2017 - chronic gastritis -Colonoscopy 09/2017 - one 6mm sigmoid polyp, diverticulosis, internal h emorrhoids Case discussed with Dr Rosado. <Farida Rosado V - Last Filed: 06/09/18 21:19> Meds - Medications Medications: Current Medications Acetaminophen (Tylenol 325mg Tab) 650 mg PO Q4 PRN PRN Reason: Fever >100.4 F Amoxicillin/Clavulanate Potassium (Augmentin 875 Mg-125 Mg Tab) 1 tab PO Q12 SC H; Protocol Budesonide (Pulmicort Respules) 0.5 mg IH [id number] JOHN Last Admin: 06/09/18 20:12 Dose: 0.5 mg Doxycycline Hyclate (Doryx) 100 mg PO Q12 JOHN; Protocol Guaifenesin/Dextromethorphan (Robitussin Dm) 10 ml PO Q4H PRN PRN Reason: Cough Heparin Sodium (Porcine) (Heparin) 5,000 units SC Q12H [id number]; Protocol Last Admin: 06/09/18 16:18 Dose: Not Given Home Med (Home Med) 1 unit PO BID [facility] Last Admin: 06/09/18 18:01 Dose: 1 unit Levalbuterol HCl (Xopenex) 0.63 mg IH TIDRESP [facility] Last Admin: 06/09/18 20:12 Dose: 0.63 mg Levothyroxine Sodium (Synthroid) 125 mcg PO 0600 JOHN Pantoprazole Sodium (Protonix Ec Tab) 40 mg PO 0600 [facility] Last Admin: 06/09/18 05:32 Dose: 40 mg Tramadol HCl (Ultram) 50 mg PO Q8H PRN PRN Reason: Pain, moderate (4-7) Results - Vital Signs Recent Vital Signs: Last Vital Signs Temp 98.4 F 06/09/18 11:58 Pulse 52 L 06/09/18 18:00 Resp 19 06/09/18 11:58 BP 136/74 06/09/18 11:58 Pulse Ox 94 L 06/09/18 06:00 - Labs Result Diagrams: 06/09/18 06:00 06/09/18 06:00 Labs: Laboratory Results - last 24 hr 06/08/18 06/09/18 06/09/18 23:35 06:00 06:00 WBC 9.7 RBC 4.76 Hgb 9.9 L Hct 33.8 L MCV 71.0 L MCH 20.8 L MCHC 29.3 L RDW 18.8 H Plt Count 553 H MPV 9.2 Gran % 80.8 H Lymph % (Auto) 9.2 L [place] % (Auto) 9.5 H Eos % (Auto) 0.5 L Baso % (Auto) 0.0 Gran # 7.82 H Lymph # (Auto) 0.9 L [place] # (Auto) 0.9 H Eos # (Auto) 0.1 Baso # (Auto) 0.00 Sodium Potassium Chloride Carbon Dioxide Anion Gap BUN Creatinine Est GFR ( Amer) Est GFR (Non-Af Amer) Random Glucose Calcium Phosphorus Magnesium Total Bilirubin AST ALT Alkaline Phosphatase Troponin I < 0.01 Total Protein Albumin Globulin Albumin/Globulin Ratio TSH 3rd Generation 0.04 L 06/09/18 06:00 WBC RBC Hgb Hct MCV MCH MCHC RDW Plt Count MPV Gran % Lymph % (Auto) [place] % (Auto) Eos % (Auto) Baso % (Auto) Gran # Lymph # (Auto) [place] # (Auto) Eos # (Auto) Baso # (Auto) Sodium 139 Potassium 4.3 Chloride 109 H Carbon Dioxide 25 Anion Gap 9 L BUN 20 Creatinine 0.9 Est GFR ( Amer) > 60 Est GFR (Non-Af Amer) > 60 Random Glucose 122 H Calcium 8.1 L Phosphorus 3.0 Magnesium 2.1 Total Bilirubin 0.2 AST 25 ALT 44 Alkaline Phosphatase 121 Troponin I < 0.01 Total Protein 6.6 Albumin 2.9 L Globulin 3.7 Albumin/Globulin Ratio 0.8 L TSH 3rd Generation Attending/Attestation - Attestation I have personally seen and examined this patient.: Yes I have fully participated in the care of the patient.: Yes I have reviewed all pertinent clinical information: Yes Notes (Text): this patient was seen and evaluated. In the ultrasound scan room. Her symptoms have significantly improved On examination abdomen soft nontender Patient gives history of intermittent dysphagia Previous endoscopy reports reviewed History of colon cancer status post extended right hemicolectomy in December 2017 at [facility] Non-small cell lung carcinoma on chemo xalakori Patient did have a CT scan which was also reviewed The activity in the colon appears more of inflammatory than neoplasia however we cannot rule out neoplasia Patient was advised to continue soft diet and chew well SHe would benefit from EGD and colonoscopy Patient wants to go home and also planning to go on vacation .I discussed at length with the pa again recommended to have the evaluation completed soon consider inpatient evaluation if the patient remains symptomatic 06/09/18 21:16
[2018-06-09] MEDS: Budesonide 0.5 mg/2 ml Inhal Susp UD IH SCH ×2 (08:11→20:12)
[2018-06-09] MEDS: Levalbuterol 0.63 MG/3 ML Inhal Soln UD IH SCH ×3 (08:11→20:12)
[2018-06-09] MEDS: Vancomycin 1gm in NS 250ml 1 GM/250 ML BAG IVPB SCH (08:52)
[2018-06-09] MEDS: CRIZOTINIB 250 MG PO SCH ×2 (09:00→18:01)
--- NOTE | 2018-06-09 10:16 | RAD ---
Date of service: 06/08/2018 HISTORY: PNA r/o COMPARISON: 06/07/2018 single-view chest. 11/19/2017 CT thorax TECHNIQUE: Chest PA and lateral FINDINGS: LUNGS: Stable findings right hilum and right upper lobe compared to the prior chest x-ray. PLEURA: No significant pleural effusion identified. No pneumothorax apparent. CARDIOVASCULAR: No aortic atherosclerotic calcification present. Normal cardiac size. No pulmonary vascular congestion. OSSEOUS STRUCTURES: No significant abnormalities. VISUALIZED UPPER ABDOMEN: Normal. OTHER FINDINGS: None. IMPRESSION: No significant interval change compared to the prior examination(s).
--- NOTE | 2018-06-09 11:28 | CARD ---
APPROVED REPORT Date of service: 06/09/2018 EKG Measurement Heart [id number] <Conclusion> Normal sinus rhythm LAD NSSTW changes No change
--- NOTE | 2018-06-09 16:08 | PN ---
DATE: 06/09/2018 SUBJECTIVE: The patient seen earlier today in 270, bed 2. No fevers, no chills. She is comfortable although she still complains of being short of breath. She states she has no pain at this morning. She did have some epigastric pain yesterday. PHYSICAL EXAMINATION: VITAL SIGNS: Temperature is 97. She has not had any fevers here although her complaint at home was having fevers, blood pressure is 140/70, respiratory rate of 20. She is saturating at 93% on room air. HEENT: Unremarkable. NECK: Supple. LUNGS: Decreased breath sounds. HEART: Normal S1 and S2. ABDOMEN: Soft and nontender. LABORATORY EXAMINATION: Reveals a white count is down to 9.7, hemoglobin of 9, platelets of 553, BUN of 20, creatinine of 0.6, and the patient's procalcitonin 0.18. Urinalysis is unremarkable. Urine for Legionella antigen is negative. Influenza is negative. Microbiology reveals the blood cultures are negative. Urine cultures are negative. The patient had a CAT scan of the abdomen and pelvis, multiple calcified gallstones without gross wall thickening or pericholecystic fluids. Dr. Parra's note is reviewed. He does not believe the patient has pneumonia. He does state the patient does have advanced chronic obstructive lung disease. ASSESSMENT AND PLAN: A 68-year-old female with [id number] stage IV lung cancer, colon cancer, hypothyroidism, anemia, history of healthcare-associated pneumonia, admitted with fevers, chills, nausea, vomiting, leukocytosis, and elevated alk phos. CAT scan is noted with negative blood cultures and we will discontinue the vancomycin. We will change the doxycycline to oral. Etiology of the patient's fever at home and leukocytosis which all resolved entirely clear. Must rule out gallbladder as the source with multiple calcified stones considered gastroenterology and surgical evaluation. We will continue with the Zosyn and discontinue the intravenous doxycycline switch to oral and discontinue the vancomycin. Treat with Zosyn and doxy pending hepatobiliary scan and abdominal ultrasound of the common bile duct size. Bayron Rooney MD [facility] # [id number]
--- NOTE | 2018-06-09 16:35 | CP.PCM.PN ---
Subjective - Date & Time of Evaluation Date of Evaluation: 06/09/18 Time of Evaluation: 16:28 - Subjective Subjective: Hematology/Oncology Progress Note (Dr. Adames's Service) Patient seen and assessed at bedside. No acute events noted overnight. Patient reports feeling "much better" than when she was admitted. Patient denies any complaints at this time including fevers, chills, headache, chest pain, SOB, abdominal pain, N/V/D/C, changes in urine output, skin changes or any numbness/tingling of any extremity. Objective - Vital Signs/Intake and Output Vital Signs (last 24 hours): Temp Pulse Resp BP Pulse Ox 98.4 F 57 L 19 136/74 94 L 06/09/18 11:58 06/09/18 11:58 06/09/18 11:58 06/09/18 11:58 06/09/18 06:00 Intake and Output: 06/09/18 06/09/18 06:59 18:59 Intake Total 1580 Balance 1580 - Medications Medications: Current Medications Acetaminophen (Tylenol 325mg Tab) 650 mg PO Q4 PRN PRN Reason: Fever >100.4 F Amoxicillin/Clavulanate Potassium (Augmentin 875 Mg-125 Mg Tab) 1 tab PO Q12 [facility]; Protocol Budesonide (Pulmicort Respules) 0.5 mg IH [id number] [facility] Last Admin: 06/09/18 08:11 Dose: 0.5 mg Doxycycline Hyclate (Doryx) 100 mg PO Q12 JOHN; Protocol Guaifenesin/Dextromethorphan (Robitussin Dm) 10 ml PO Q4H PRN PRN Reason: Cough Heparin Sodium (Porcine) (Heparin) 5,000 units SC Q12H JOHN; Protocol Last Admin: 06/09/18 16:18 Dose: Not Given Home Med (Home Med) 1 unit PO BID [facility] Last Admin: 06/09/18 09:00 Dose: 1 unit Levalbuterol HCl (Xopenex) 0.63 mg IH TIDRESP [facility] Last Admin: 06/09/18 14:04 Dose: 0.63 mg Levothyroxine Sodium (Synthroid) 125 mcg PO 0600 JOHN Pantoprazole Sodium (Protonix Ec Tab) 40 mg PO 0600 [facility] Last Admin: 06/09/18 05:32 Dose: 40 mg Tramadol HCl (Ultram) 50 mg PO Q8H PRN PRN Reason: Pain, moderate (4-7) - Labs Labs: 06/09/18 06:00 06/09/18 06:00 - Additional Findings Additional findings: - Constitutional Appears: Non-toxic, No Acute Distress - Head Exam Head Exam: ATRAUMATIC, NORMOCEPHALIC - Eye Exam Eye Exam: EOMI, Normal appearance - ENT Exam ENT Exam: Mucous Membranes Moist - Neck Exam Neck Exam: Full ROM, Normal Inspection. absent: Lymphadenopathy, Meningismus, Tenderness, Thyromegaly - Respiratory Exam Respiratory Exam: Clear to Ausculation Bilateral, NORMAL BREATHING PATTERN. absent: Accessory Muscle Use, Rales, Rhonchi, Wheezes, Respiratory Distress - Cardiovascular Exam Cardiovascular Exam: RRR, +S1, +S2 - GI/Abdominal Exam GI & Abdominal Exam: Soft, Normal Bowel Sounds. absent: Distended, Firm, Guarding, Rigid, Tenderness - Extremities Exam Extremities Exam: Pedal Edema (Minimal trace pitting edema bilaterally extending to ankle). absent: Calf Tenderness, Joint Swelling - Neurological Exam Neurological Exam: Alert, Awake, Normal Gait, Oriented x3 - Psychiatric Exam Psychiatric exam: Normal Affect, Normal Mood - Skin Skin Exam: Dry, Intact, Normal Color, Warm Assessment and Plan - Assessment and Plan (Free Text) Assessment: 68 year old female with a past medical history significant for NSCLC on Xalkori, colonic adenocarcinoma s/p partial colectomy, and obesity who presented with fever of 101 at home and found to have questionable new left lower lobe pneumonia. Plan: 1. LLL Pneumonia -Chest X-Ray (portable) showed LLL pneumonia -Chest X-Ray (PA/Lateral) showing no interval changes in LLL pneumonia -Blood cultures, influenza, legionella and procalcitonin negative -Sputum cultures pending -Started PO Augmentin and Doxycycline -Continue Xopenex TID and Pulmicort Q12 -Continue Robitussin DM and Tylenol PRN -ID and Pulmonology consulted, all recommendations appreciated 2. Non-sustained Ventricular Tachycardia -10 beats of ventricular tachycardia noted on telemetry monitoring -Three serial troponins Q6H negative -2D Echocardiogram pending -Cardiology consulted, all recommendations appreciated 3. Epigastric Pain -HIDA scan and Abdominal US pending -Continue Protonix -GI consulted, all recommendations appreciated 4. History of NSCLC -Continue home Xalkori 250mg daily 5. History of Hypothyroidism -Hold home Synthroid d/t low TSH -Will restart in 24-48 hours 6. Intermittent Thigh Pain -Continue Ultram PRN GI Prophylaxis: Protonix DVT Prophylaxis: Heparin and SCD's Diet: Regular Patient seen and case discussed with attending, Dr. Gibson. Ramón España PGY2
--- NOTE | 2018-06-09 17:04 | CON ---
DATE: 06/09/2018 REASON FOR CONSULTATION: Nonsustained VT on telemetry. HISTORY OF PRESENT ILLNESS: This is a 68-year-old with woman admitted on 06/07/2018 with a history of non-small cell carcinoma, undergoing chemotherapy by Dr. Adames utilizing Hemant, who was admitted with fever, nausea, vomiting, and fatigue on 06/07/2018. There was a question of pneumonia on her chest x-ray. She has been treated with antibiotics. This morning, she feels better. There is no fever, nausea or vomiting. She denies chest pain, although there may have been some mild discomfort with her initial symptomatology. She does experience dyspnea on exertion, which is chronic. There is no orthopnea, PND, syncope, presyncope, lightheadedness, dizziness, or vertigo. There is no edema or claudication. There is no diarrhea or melena. PAST MEDICAL HISTORY: Notable for [id number] lung cancer being treated by Dr. Adamse. Earlier in the year she underwent a colon resection for an adenocarcinoma. There is a history of hypothyroidism, anemia, glaucoma, COPD, GERD, gallstones. There is no history of rheumatic fever, myocardial infarction, angina or arrhythmia. She did have a stress test several years ago, which was unremarkable according to her memory. MEDICATIONS AT THE TIME OF ADMISSION: Include levothyroxine, Protonix, Synthroid, albuterol, Xalkori, which is now on hold. ALLERGIES: THERE ARE NO KNOWN MEDICATION ALLERGIES. SOCIAL HISTORY: She lives at home. She is ambulatory. She does not smoke. She does not drink alcohol significantly. FAMILY HISTORY: Noncontributory. REVIEW OF SYSTEMS: A 10-point review of systems otherwise unremarkable except as noted above. PHYSICAL EXAMINATION: GENERAL: She is a well-developed woman sitting on her bed on 2R in no acute distress. VITAL SIGNS: Notable for sinus rhythm 59 beats per minute. She is currently afebrile. Blood pressure 147/73, respirations 18 to 20, O2 sat 93% to 94% on room air. HEENT: Exam reveals no neck vein distention, thyromegaly, carotid bruits. Mucous membranes moist. Conjunctivae pink. NECK: Supple. LUNG: Lung mccoy, scattered rhonchi. HEART: Examination of the heart revealed normal first and second heart sounds. There is a soft systolic murmur along the left sternal border. ABDOMEN: Soft. Bowel sounds present. No mass, organomegaly, tenderness, rebound, guarding, CVA tenderness, or palpable abdominal aortic aneurysm. EXTREMITIES: Exam revealed no cyanosis, clubbing or edema. NEUROLOGICAL: Awake, alert and oriented. SKIN: Warm and dry. No rash or cellulitis. PSYCHIATRIC: Normal as to mood and affect. LABORATORY AND IMAGING STUDIES: Chest x-ray revealed normal sinus rhythm, left axis deviation, nonspecific ST wave changes, which were new. Chest x-ray on 06/07/2018 revealed airspace disease in the right upper lobe, which may represent pneumonia, asymmetric enlargement of the right hilum, likely related to mass, adenopathy. CT of the abdomen and pelvis revealed multiple large, calcified gallstones, stable 13 mm cystic lesion in the pancreatic tail. Repeat chest x-ray on 06/08/2018 is pending. White count initially 15,100, today 9700, hemoglobin 11.1, today 9.9, hematocrit 37.3, today is 33.8, platelet counts are elevated in the 550,000 range. Blood gases are noted. Electrolytes, BUN, creatinine, blood sugar, unremarkable. LFTs basically unremarkable. Three troponins are negative. Procalcitonin 0.18. TSH low at 0.04. Urinalysis is unremarkable. Serologies are negative for influenza. IMPRESSION: La White is a 68-year-old woman undergoing treatment for [id number] lung cancer, who came in with fever, nausea, vomiting, fatigue, and vague chest pain initially. Her symptoms have improved. She is cultured. She is getting antibiotics. There is discussion as to whether or not there is pneumonia present. She is being seen by Pulmonary, Infectious Disease, GI. She had a run of 10-beat nonsustained VT on telemetry yesterday without symptoms and without recurrence. Her potassium and magnesium levels are normal. I will order an echocardiogram. We will continue telemetry. She can be out of bed to a chair. She is getting doxycycline subcu heparin, Protonix, Pulmicort, Synthroid, Tylenol, Ultram p.r.n., vancomycin, Xopenex, and Zosyn. I will follow along with you. I will make additional recommendations based on her clinical course. Eagle Delarosa MD [facility] # [id number] DAVID
--- NOTE | 2018-06-09 17:18 | NM ---
Date of service: 06/09/2018 PROCEDURE: Nuclear Medicine Hepatobiliary Scan HISTORY: gallstones, fever COMPARISON: 06/06/2018. CT abdomen and pelvis TECHNIQUE: 5.7 mCi of technetium 99m Mebrofenin was administered intravenously. Planar images of the abdomen were obtained at 5 min intervals to 60 mins. Delayed images were also obtained. FINDINGS: LIVER: Timely and homogenous uptake. COMMON BILE DUCT: identified at 5 mins. GALLBLADDER: Not identified at 4 hr.. SMALL BOWEL: Identified at 15 mins. IMPRESSION: Positive hepatobiliary Scan. The cystic duct is occluded, presumptive evidence for acute cholecystitis
--- NOTE | 2018-06-09 17:55 | US ---
Date of service: 06/09/2018 HISTORY: cholithiasis, r/o cholecystitis COMPARISON: June 08, 2018. CT abdomen and pelvis TECHNIQUE: Sonographic evaluation of the abdomen. FINDINGS: LIVER: Measures 17.1 cm. Patent portal vein. Portal venous flow: Hepatopetal. Unremarkable echogenicity of the liver parenchyma. No mass. No intrahepatic bile duct dilatation. GALLBLADDER: Cholelithiasis. Negative study for gallbladder wall thickening, pericholecystic fluid, sonographic Mayorga's sign. COMMON BILE DUCT: Measures 3.7 mm. No stones. No dilatation. PANCREAS: Obscured by overlying bowel gas. Non diagnostic assessment of the pancreas RIGHT KIDNEY: Measures 4.5 x 11.4cm. Normal echogenicity. No calculus, mass, or hydronephrosis. LEFT KIDNEY: Measures 5.7 x 10.5cm. Normal echogenicity. No calculus, mass, or hydronephrosis. SPLEEN: Normal in size and contour. No mass. AORTA: No aneurysmal dilatation. IVC: Unremarkable. OTHER FINDINGS: None. IMPRESSION: Cholelithiasis. No sonographic evidence of acute cholecystitis.
[2018-06-09] MEDS: Amoxicillin-Clav 875-125 mg Tab PO SCH (22:18)
[2018-06-09] MEDS ORDERED: DiphenhydrAMINE 50 mg/ml Inj IVP STA (22:46)
[2018-06-10 01:34] VITALS: O2SAT 97
[2018-06-10] MEDS: Pantoprazole 40 mg EC Tab PO SCH (06:30)
[2018-06-10 07:02] LABS: BASO # 0.01 K/mm3 (0.0-2.0); BASO % 0.1 % (0.0-3.0); EOS # 0.1 (0.0-0.7); EOS % 0.8 % (1.5-5.0); GRAN # 5.08 (1.4-6.5); GRAN % 66.6 % (50.0-68.0); HEMOGLOBIN 9.6 g/dL (12.0-16.0); LYMPH # 1.5 (1.2-3.4); LYMPH % 19.5 % (22.0-35.0); MEAN CELL VOLUME 70.8 fl (80.0-105.0); MEAN CORPUSCULAR HEMOGLOBIN 20.6 pg (25.0-35.0); MEAN CORPUSCULAR HGB CONC 29.1 g/dl (31.0-37.0); MEAN PLATELET VOLUME 9.1 fl (7.0-11.0); RBC 4.66 10^6/uL (3.5-6.1); RED CELL DISTRIBUTION WIDTH 18.5 % (11.5-14.5); WHITE BLOOD COUNT 7.6 10^3/uL (4.5-11.0)
[2018-06-10 07:21] LABS: ALB/GLOB RATIO 0.8 (1.1-1.8); ALBUMIN 2.8 g/dL (3.0-4.8); ALT/SGPT 39 U/L (7-56); AST/SGOT 26 U/L (14-36); BLOOD UREA NITROGEN 18 mg/dL (7-21); GFR NON-AFRICAN AMERICAN > 60
[2018-06-10] MEDS: Levalbuterol 0.63 MG/3 ML Inhal Soln UD IH SCH ×2 (07:24→13:03)
[2018-06-10] MEDS: Budesonide 0.5 mg/2 ml Inhal Susp UD IH SCH (07:24)
--- NOTE | 2018-06-10 07:27 | PN ---
DATE: 06/10/2018 PULMONARY NOTE SUBJECTIVE: The patient appears very comfortable this morning. She is not short of breath at rest. PHYSICAL EXAMINATION: VITAL SIGNS: (Last noted in the computer): Temperature is 97.9, pulse 59, respirations 18-20, blood pressure 126/67. Oxygen saturation on room air is 97%. HEENT: Normocephalic, atraumatic. No JVD. CARDIOVASCULAR: Positive S1, S2. No S3 gallop. LUNGS: Clear bilaterally. EXTREMITIES: Mild edema. No cyanosis, no clubbing. Calves are nontender to palpation. GASTROINTESTINAL: Abdomen is soft, nontender, and nondistended. Bowel sounds are positive. SKIN: No acute rash. NEUROLOGIC: Limited at the present time. IMPRESSION: 1. Sepsis syndrome. 2. Rule out viral syndrome. 3. Advanced lung cancer. 4. Advanced chronic obstructive pulmonary disease. 5. Anemia. 6. Ventricular tachycardia. PLAN: The patient appears very comfortable this morning. She is not short of breath at rest. She does state to feeling much better overall. I did discuss the case with the night nurse at length. The night nurse stated that the patient had a very good night. They have been no further signs of ventricular tachycardia on the monitor. On physical exam, her lungs remain clear. In addition, the oxygen saturation on room air is now 97%. I will continue with the current nebulizer treatments and inhaled steroids for now. The patient remains on antibiotic therapy. Input by Infectious Disease is noted. The temperatures have fully resolved. The leukocytosis has also fully resolved. Inputs by Oncology and GI are also noted. Clinical status of the patient is significantly improved - compared to the initial presentation. However, again, the future status/prognosis for this patient remains very guarded at best. I will discuss the above with the attending physician. Harris Parra MD MTDD
--- NOTE | 2018-06-10 07:46 | CP.PCM.PN ---
Subjective - Date & Time of Evaluation Date of Evaluation: 06/10/18 Time of Evaluation: 07:00 - Subjective Subjective: Stable on 2R. She feels well and is eager to go home. No CP or SOB now. V/S noted. RSR/SB. No NSVT PE: Lungs: clear Cor.: S1S2 Abd.: soft Ext.: no edema Neuro.: alert Labs noted: BMP, CBC OK. BC X2 NG at 24 hrs. HIDA colón noted: Occluded cystic duct, C/W cholecystitis Abd. U/S: + gall stones Echo: Nl LV. See full report. Objective - Vital Signs/Intake and Output Vital Signs (last 24 hours): Temp Pulse Resp BP Pulse Ox 97.9 F 59 L 20 126/67 97 06/09/18 22:00 06/09/18 22:00 06/09/18 22:00 06/09/18 22:00 06/09/18 22:00 Intake and Output: 06/10/18 06/10/18 06:59 18:59 Intake Total 300 Balance 300 - Medications Medications: Current Medications Acetaminophen (Tylenol 325mg Tab) 650 mg PO Q4 PRN PRN Reason: Fever >100.4 F Amoxicillin/Clavulanate Potassium (Augmentin 875 Mg-125 Mg Tab) 1 tab PO Q12 JOHN; Protocol Last Admin: 06/09/18 22:18 Dose: 1 tab Budesonide (Pulmicort Respules) 0.5 mg IH [id number] [facility] Last Admin: 06/10/18 07:24 Dose: 0.5 mg Doxycycline Hyclate (Doryx) 100 mg PO Q12 JOHN; Protocol Last Admin: 06/09/18 22:18 Dose: 100 mg Guaifenesin/Dextromethorphan (Robitussin Dm) 10 ml PO Q4H PRN PRN Reason: Cough Last Admin: 06/09/18 22:18 Dose: 10 ml Heparin Sodium (Porcine) (Heparin) 5,000 units SC Q12H JOHN; Protocol Last Admin: 06/09/18 16:18 Dose: Not Given Home Med (Home Med) 1 unit PO BID JOHN Last Admin: 06/09/18 18:01 Dose: 1 unit Levalbuterol HCl (Xopenex) 0.63 mg IH TIDRESP [facility] Last Admin: 06/10/18 07:24 Dose: 0.63 mg Levothyroxine Sodium (Synthroid) 125 mcg PO 0600 JOHN Pantoprazole Sodium (Protonix Ec Tab) 40 mg PO 0600 JOHN Last Admin: 06/09/18 05:32 Dose: 40 mg Tramadol HCl (Ultram) 50 mg PO Q8H PRN PRN Reason: Pain, moderate (4-7) - Labs Labs: 06/10/18 05:30 06/10/18 05:30 Assessment and Plan - Assessment and Plan (Free Text) Assessment: Fever, Nausea, Vomiting, fatigue initially, resolved R/O pneumonia, viral syndrome, acute cholecystitis NCVT 10 beats once on tel. NSC lung cancer Colon cancer s/p resection COPD Gall Stones Hypothyroidism Anemia Obesity Glaucoma GERD Plan: As per Onc., Pulm, ID and GI. AB OOB as efren.
--- NOTE | 2018-06-10 09:33 | CARD ---
APPROVED REPORT Date of service: 06/09/2018 EXAM: Two-dimensional and M-mode echocardiogram with Doppler and color Doppler. Other Information Quality : AverageRhythm : INDICATION Dyspnea , NSVT 2D DIMENSIONS Left Atrium (2D)3.7 (1.6-4.0cm)IVSd1.1 (0.7-1.1cm) LVDd4.6 (3.9-5.9cm)PWd0.9 (0.7-1.1cm) LVDs3.2 (2.5-4.0cm)FS (%) 31.3 % LVEF (%)59.0 (>50%) M-Mode DIMENSIONS Aortic Root2.90 (2.2-3.7cm)Aortic Cusp Exc.1.90 (1.5-2.0cm) Aortic Valve AoV Peak Jcuijith415.0cm/s Mitral Valve E/A ratio0.0 TDI E/Lateral E'0.0E/Medial E'0.0 Tricuspid Valve TR Peak Fnadiziq096gy/sRAP [id number] Peak Gr.41mmHg [id number] LEFT VENTRICLE The left ventricle is normal size. There is normal left ventricular wall thickness. The left ventricular function is normal. The left ventricular ejection fraction is within the normal range. There is normal LV segmental wall motion. RIGHT VENTRICLE The right ventricle is normal size. ATRIA The left atrium size is normal. The right atrium size is normal. The interatrial septum is intact with no evidence for an atrial septal defect. AORTIC VALVE The aortic valve is normal in structure. MITRAL VALVE The mitral valve is normal in structure. Mitral regurgitation is trace. TRICUSPID VALVE The tricuspid valve is normal in structure. There is trace to mild tricuspid regurgitation. PULMONIC VALVE The pulmonic valve is not well visualized. GREAT VESSELS The aortic root is normal in size. PERICARDIAL EFFUSION There is no pericardial effusion. <Conclusion> The left ventricle is normal size. There is normal left ventricular wall thickness. The left ventricular function is normal. Mitral regurgitation is trace. There is trace to mild tricuspid regurgitation.
[2018-06-10] MEDS: Amoxicillin-Clav 875-125 mg Tab PO SCH (09:59)
[2018-06-10] MEDS: CRIZOTINIB 250 MG PO SCH (10:00)
--- NOTE | 2018-06-10 10:02 | PN ---
DATE: 06/10/2018 SUBJECTIVE: The patient is in bed, in no acute distress, was seen earlier this morning, doing well. No fevers and no chills. No nausea. No vomiting. No chest pain. PHYSICAL EXAMINATION: VITAL SIGNS: On exam, temperature is 98, blood pressure is 126/60, respiratory rate of 20. HEENT: Examination of HEENT is unremarkable. NECK: Supple. LUNGS: Have decreased breath sounds. HEART: Normal S1, S2. ABDOMEN: Soft, nontender. LABORATORY DATA: Laboratory examination reveals a 15,000 white count, it is improved down to 7.6. The patient also had an elevated alk phos at 146, which is improved to 111. The epigastric pain is also improved. Procalcitonin was negative. Microbiology is urine and blood cultures are negative. The MRSA nasal screen is negative. The HIDA scan is positive for hepatobiliary scan, positive cystic duct is occluded. Dr. Parra's note is reviewed. ASSESSMENT AND PLAN: A 68-year-old with a [id number] stage IV lung cancer, colon cancer, hypothyroidism, anemia, history of healthcare-associated pneumonia, admitted with fevers and chills, nausea and vomiting, leukocytosis and elevated alk phos. Although she did not have any fevers in the hospital, she had described fevers at home and she did have leukocytosis now with a positive HIDA scan with the occluded cystic duct. Evidence for acute cholecystitis. Recommend GI and surgical evaluation. The patient is doing well this morning. We will follow closely with you. Bayron Rooney MD
--- NOTE | 2018-06-10 10:48 | CP.PCM.PN ---
<Sury Beltran - Last Filed: 06/10/18 10:49> Subjective - Date & Time of Evaluation Date of Evaluation: 06/10/18 Time of Evaluation: 09:00 - Subjective Subjective: GI Fellow PGY5 Progress Note Pt seen and evaluated at bedside, pt reporting feeling alot better. Tolerating her diet with no abdominal pain, N/V. No complaints of dysphagia at this time. ROS: A 12pt ROS was negative except as above. Objective - Vital Signs/Intake and Output Vital Signs (last 24 hours): Temp Pulse Resp BP Pulse Ox 97.9 F 68 20 126/67 97 06/09/18 22:00 06/10/18 10:00 06/09/18 22:00 06/09/18 22:00 06/09/18 22:00 Intake and Output: 06/10/18 06/10/18 06:59 18:59 Intake Total 300 Balance 300 - Medications Medications: Current Medications Acetaminophen (Tylenol 325mg Tab) 650 mg PO Q4 PRN PRN Reason: Fever >100.4 F Amoxicillin/Clavulanate Potassium (Augmentin 875 Mg-125 Mg Tab) 1 tab PO Q12 [facility]; Protocol Last Admin: 06/10/18 09:59 Dose: 1 tab Budesonide (Pulmicort Respules) 0.5 mg IH [id number] [facility] Last Admin: 06/10/18 07:24 Dose: 0.5 mg Guaifenesin/Dextromethorphan (Robitussin Dm) 10 ml PO Q4H PRN PRN Reason: Cough Last Admin: 06/09/18 22:18 Dose: 10 ml Heparin Sodium (Porcine) (Heparin) 5,000 units SC Q12H JOHN; Protocol Last Admin: 06/10/18 04:30 Dose: Not Given Home Med (Home Med) 1 unit PO BID [facility] Last Admin: 06/10/18 10:00 Dose: 1 unit Levalbuterol HCl (Xopenex) 0.63 mg IH TIDRESP [facility] Last Admin: 06/10/18 07:24 Dose: 0.63 mg Levothyroxine Sodium (Synthroid) 125 mcg PO 0600 JOHN Pantoprazole Sodium (Protonix Ec Tab) 40 mg PO 0600 [facility] Last Admin: 06/10/18 06:30 Dose: Not Given Tramadol HCl (Ultram) 50 mg PO Q8H PRN PRN Reason: Pain, moderate (4-7) - Labs Labs: 06/10/18 05:30 06/10/18 05:30 - Constitutional Appears: Non-toxic, No Acute Distress - Head Exam Head Exam: ATRAUMATIC, NORMAL INSPECTION, NORMOCEPHALIC - Eye Exam Eye Exam: EOMI, Normal appearance Pupil Exam: PERRL - ENT Exam ENT Exam: Mucous Membranes Moist - Neck Exam Neck Exam: Full ROM, Normal Inspection - Respiratory Exam Respiratory Exam: Clear to Ausculation Bilateral, NORMAL BREATHING PATTERN - Cardiovascular Exam Cardiovascular Exam: REGULAR RHYTHM, RRR, +S1, +S2 - GI/Abdominal Exam GI & Abdominal Exam: Soft, Normal Bowel Sounds. absent: Distended, Firm, Guarding - Rectal Exam Rectal Exam: NORMAL INSPECTION - Back Exam Back Exam: NORMAL INSPECTION - Neurological Exam Neurological Exam: Alert, Awake, Oriented x3 - Psychiatric Exam Psychiatric exam: Normal Affect, Normal Mood - Skin Skin Exam: Dry, Intact, Normal Color, Warm Assessment and Plan - Assessment and Plan (Free Text) Assessment: Mrs White is a 68 year old female with a PMHx of anemia, hypothyroidism, arthritis, colon cancer, and non-small cell lung cancer of the right upper lobe, who presented to the ED complaining of acid reflux, vomiting, and mild chest pressure which began 1 day prior to presentation. 1. PNA 2. Abdominal pain 3. Hx of Colon cancer 4. Lung Cancer 5. Intermittent dysphagia Plan: -Continue supportive care with pain control and anti-emetics -IV abx per primary team for possible PNA -Prior EGD reports 11/2017 - LA grade A esophagitis, enlarged gastric folds, chronic gastritis -Continue PPI -CT imaging reviewed with gallstones but no active infection -s/p colon resection -most recent PET scan 05/2018 showed increased FDG uptake at left hepatic flexure and descending colon -Most likely inflammatory etiology but will plan for outpatient EGD and colonoscopy -Pt should contact office on Tuesday to schedule procedures -Per GI perspective pt okay to go home <Farida Rosado V - Last Filed: 06/11/18 21:51> Objective - Vital Signs/Intake and Output Vital Signs (last 24 hours): Temp Pulse Resp BP Pulse Ox 97 F L 56 L 18 150/79 97 06/10/18 12:00 06/10/18 12:00 06/10/18 12:00 06/10/18 12:00 06/09/18 22:00 - Labs Labs: 06/10/18 05:30 06/10/18 05:30 Attending/Attestation - Attestation I have personally seen and examined this patient.: Yes I have fully participated in the care of the patient.: Yes I have reviewed all pertinent clinical information, including history, physical exam and plan: Yes Notes (Text): This is an addendum to GI progress report dictated by the GI Fellow.The patient was seen and examined earlier. Medical records, lab studies, imagings were reviewed. Last 24 hours events reviewed. Agreed with the above treatment plan as outlined in GI Fellow 's notes with the addition of the following Patient was tolerating diet No complaints of abdominal pain Physical exam no tenderness Imaging studies HIDA scan, ultrasound scan, and CT were reviewed Discussed with Dr. Gerard Khoury discussed with the ID Requested surgical eval If the patient is discharged it may be reasonable to complete the antibiotic course with the advice of the patient to come back to ER any recurrence of symptoms PET scan was reviewed History of dysphagia ,intermittant Patient wants to go on a vacation She wants to have EGD and colonoscopy done after her return 06/11/18 01:49 06/11/18 21:46
[2018-06-10 12:44] VITALS: BP 150/79; PULSE 56; RESP 18; TEMP 97
--- NOTE | 2018-06-10 13:04 | CP.PCM.CON ---
History of Present Illness - History of Present Illness History of Present Illness: 68F PMHx of colon CA s/p extended R hemicolectomy, non-small cell lung cancer of R upper lobe, anemia, hypothyroidism, and arthritis. [place] [facility] [place] with complaints of nausea and epigastric pain. General surgery consulted for cholelithiasis and +HIDA scan. At time of examination patient was sitting at bedside comfortably. She is tolerating regular diet. Denies fever/chills, nausea/vomiting, chest pain, shortness of breath, abdominal pain. Patient is passing flatus and having normal BMs. PMHx:as stated above PSHx: Extended right hemicolectomy 10/2017 Allergies: NKA SocialHx: 30 pack year smoking hx; EtOH use in social events, no illicit drug use Review of Systems - Review of Systems Review of Systems: 10 pt ROS unremarkable, except as stated in HPI Past Patient History - Infectious Disease Hx of Infectious Diseases: None - Past Social History Smoking Status: Never Smoked - CARDIAC Hx Hypercholesterolemia: Yes - PULMONARY Hx Pneumonia: Yes - NEUROLOGICAL Hx Paralysis: No - HEENT Hx HEENT Problems: Yes (Glasses) - ENDOCRINE/METABOLIC Hx Hypothyroidism: Yes - HEMATOLOGICAL/ONCOLOGICAL Hx Cancer: Yes (Lung) - INTEGUMENTARY Other/Comment: moles - MUSCULOSKELETAL/RHEUMATOLOGICAL Hx Arthritis: Yes (Knee and Wrist) Hx Back Pain: Yes (Sciatica) Hx Falls: No - GASTROINTESTINAL Hx Gastrointestinal Disorders: Yes (GI bleed 20 yrs ago) Hx Gastroesophageal Reflux: Yes - PSYCHIATRIC Hx Substance Use: No - SURGICAL HISTORY Hx Surgeries: Yes - ANESTHESIA Hx Anesthesia Reactions: No Hx Malignant Hyperthermia: No Meds Allergies/Adverse Reactions: Allergies Allergy/AdvReac Type Severity Reaction Status Date / Time No Known Allergies Allergy Verified 10/04/17 11:57 - Medications Medications: Current Medications Acetaminophen (Tylenol 325mg Tab) 650 mg PO Q4 PRN PRN Reason: Fever >100.4 F Amoxicillin/Clavulanate Potassium (Augmentin 875 Mg-125 Mg Tab) 1 tab PO Q12 JOHN; Protocol Last Admin: 06/10/18 09:59 Dose: 1 tab Budesonide (Pulmicort Respules) 0.5 mg IH [id number] JOHN Last Admin: 06/10/18 07:24 Dose: 0.5 mg Guaifenesin/Dextromethorphan (Robitussin Dm) 10 ml PO Q4H PRN PRN Reason: Cough Last Admin: 06/09/18 22:18 Dose: 10 ml Heparin Sodium (Porcine) (Heparin) 5,000 units SC Q12H [facility]; Protocol Last Admin: 06/10/18 04:30 Dose: Not Given Home Med (Home Med) 1 unit PO BID [facility] Last Admin: 06/10/18 10:00 Dose: 1 unit Levalbuterol HCl (Xopenex) 0.63 mg IH TIDRESP [facility] Last Admin: 06/10/18 07:24 Dose: 0.63 mg Levothyroxine Sodium (Synthroid) 125 mcg PO 0600 [facility] Pantoprazole Sodium (Protonix Ec Tab) 40 mg PO 0600 [facility] Last Admin: 06/10/18 06:30 Dose: Not Given Tramadol HCl (Ultram) 50 mg PO Q8H PRN PRN Reason: Pain, moderate (4-7) Physical Exam - Constitutional Appears: No Acute Distress - Head Exam Head Exam: NORMOCEPHALIC - Eye Exam Eye Exam: EOMI - ENT Exam ENT Exam: Mucous Membranes Moist - Respiratory Exam Respiratory Exam: NORMAL BREATHING PATTERN - Cardiovascular Exam Cardiovascular Exam: +S1, +S2 - GI/Abdominal Exam GI & Abdominal Exam: Soft. absent: Distended, Firm, Guarding, Rebound, Rigid, Tenderness - Neurological Exam Neurological exam: Alert, Oriented x3 - Psychiatric Exam Psychiatric exam: Normal Mood - Skin Skin Exam: Dry, Intact, Warm Results - Vital Signs Recent Vital Signs: Last Vital Signs Temp 97 F L 06/10/18 12:00 Pulse 56 L 06/10/18 12:00 Resp 18 06/10/18 12:00 BP 150/79 06/10/18 12:00 Pulse Ox 97 06/09/18 22:00 - Labs Result Diagrams: 06/10/18 05:30 06/10/18 05:30 Labs: Laboratory Results - last 24 hr 06/10/18 06/10/18 05:30 05:30 WBC 7.6 D RBC 4.66 Hgb 9.6 L Hct 33.0 L MCV 70.8 L MCH 20.6 L MCHC 29.1 L RDW 18.5 H Plt Count 526 H MPV 9.1 Gran % 66.6 Lymph % (Auto) 19.5 L [place] % (Auto) 13.0 H Eos % (Auto) 0.8 L Baso % (Auto) 0.1 Gran # 5.08 Lymph # (Auto) 1.5 [place] # (Auto) 1.0 H Eos # (Auto) 0.1 Baso # (Auto) 0.01 Sodium 137 Potassium 4.3 Chloride 108 H Carbon Dioxide 25 Anion Gap 8 L BUN 18 Creatinine 0.8 Est GFR ( Amer) > 60 Est GFR (Non-Af Amer) > 60 Random Glucose 91 Calcium 8.0 L Phosphorus 3.1 Magnesium 2.1 Total Bilirubin 0.2 AST 26 ALT 39 Alkaline Phosphatase 111 Total Protein 6.4 Albumin 2.8 L Globulin 3.6 Albumin/Globulin Ratio 0.8 L Assessment & Plan - Assessment and Plan (Free Text) Assessment: 68F with cholelithiasis Plan: -Patient's liver enzyme levels are all within normal limits -She is tolerating a regular diet. Has no abdominal pain nor tenderness -Leukocytosis has resolved. -Recommend patient undergo a cholecystectomy as outpatient as she is currently experiencing no symptoms. -Patient is to follow up with Dr. Fournier this upcoming week -D/c on PO ABx -Recommend low fat diet until date of surgery -Will follow up with patient in office later this week -Findings and recs discussed with primary team -D/w Dr. Shantanu Fuller PGY3
--- NOTE | 2018-06-10 22:31 | DS ---
For Dr. Adames. SUBJECTIVE: The patient is a 68-year-old female anxious for discharge home after being evaluated for elevated temperatures with decreased appetite with suspicious for early pneumonia with further showing acute cholecystitis . She also suffers from hypothyroidism for which she is now supratherapeutic with her Synthroid which has been on hold, recently cut back the dose. She also suffers from [id number] CA of the right upper lobe of the lung adenocarcinoma being treated with Xalkori. Otherwise, she is without pain, tolerating her diet after testing done yesterday. OBJECTIVE/PHYSICAL EXAMINATION: VITAL SIGNS: Temperature 97, pulse 56, respirations 18, blood pressure 150/79, pulse ox 97%. HEENT: Unremarkable. NECK: Supple. HEART: Robbin rate, regular rhythm. LUNGS: Clear. ABDOMEN: Obese, soft, nontender. EXTREMITIES: No edema. SKIN: Warm and dry. NEUROLOGIC: Awake, alert, and oriented. LABORATORY DATA: The patient's labs were done. White blood cell count 7.6, down from 15.1 on admission; hemoglobin 9.6; hematocrit 33.0; platelets count of 526,000. Chem metabolic panel shows a normal chem metabolic panel chloride of 108, calcium 8.0, albumin of 2.8, TSH of 0.04 with a normal AST, ALT, and total bilirubin. The patient's urinalysis was negative on admission. Yesterday's testing for this patient included an echocardiogram which was read as ejection fraction 59% with mitral regurgitation trace, trace tricuspid regurgitation. She also had an ultrasound of her abdomen done yesterday was read as cholelithiasis, no sonographic evidence for acute cholecystitis. The patient then had a HIDA scan done yesterday, it was read as positive hepatobiliary scan, cystic duct is occluded, presumptive evidence for acute cholecystitis. Also, the patient had a followup chest x-ray done which showed no significant change compared to prior examinations, which showed no pneumothorax, no significant pleural effusion with an airspace disease in the right upper lobe, which may represent pneumonia. However, after evaluation by Dr. Parra, Pulmonology, it appears that the findings were not significant for pneumonia. ASSESSMENT: For this patient is that of cholelithiasis with abdominal discomfort, mild with positive HIDA scan, elevated temperature, anemia of chronic disease, chronic obstructive pulmonary disease , stage IV [id number] cancer of the lung, hypothyroidism, history of colon cancer, obesity, degenerative joint disease and gastroesophageal reflux disease. PLAN: For this patient, after conversation with Dr. Adames, Dr. Rosado and Dr. Max Fournier, surgeon, was to obtain a surgical evaluation, which was done with consideration for elective cholecystectomy as an outpatient as the patient is feeling better with appetite tolerated. We will also recommend that the patient follow up with Dr. Rosado, gastrointestinal insolvency consultant, for EGD and colonoscopy as an outpatient for her findings. The patient did have a run of ventricular tachycardia for which Dr. Frost was consulted with no further recurrences with this, to be evaluated also as an outpatient. After conversation with Dr. Rooney , Infectious Disease consult, we will discharge the patient to home on Augmentin 875 twice a day for 5 additional days with strict followup with Dr. Fournier early next week for definitive treatment of her gallbladder issues with a traditional cholecystectomy recommended versus laparoscopic cholecystectomy due to other issues after conversation with Dr. Rosado, gastrointestinal insolvency consultant. She also on low-fat soft diet with followup with Dr. Adames early next week also. The patient also has a planned trip to the [facility] in the near future with this to be reconsidered and possibly put on hold as per clinician's recommendations after evaluation during the week. We will also decrease her Synthroid to one tablet of 125 mg six out of seven days with readjustment to be made with a lower dose as indicated after TSH values are done. The patient's discharge medications again include Augmentin 875 twice a day for 5 days. She is to continue her Xalkori as per Dr. Adames's recommendation. Protonix, Pulmicort, Robitussin DM as needed, Synthroid as above, tramadol as needed for moderate pain, and albuterol as prior to her admission to the hospital. This is a complex patient with a comprehensive medically necessary and appropriate visit carried out in excess of 70 minutes with discussions held with clinicians as above including Dr. Fournier, surgical aide; Dr. Adames; Alonzo Ziegler and Dr. Cao and the nurse involved in the patient's care. All questions were answered to her satisfaction. Gerard Gibson MD [facility] # [id number]
== END 2018-06-10 14:17 | disposition home or self-care (01) | DRG 194 ==
LOC: ED 18:33 → ERH 20:35 → 2RSO 22:17
PROVIDERS: ADMIT Family Medicine; ATTEND Family Medicine
DX: J18.9 Pneumonia, unspecified organism (principal); C34.11 Malignant neoplasm of upper lobe, right bronchus or lung; I47.2 Ventricular tachycardia; K80.00 Calculus of gallbladder with acute cholecystitis without obstruction; J44.0 Chronic obstructive pulmonary disease with (acute) lower respiratory infection; K21.9 Gastro-esophageal reflux disease without esophagitis; E03.9 Hypothyroidism, unspecified; M19.90 Unspecified osteoarthritis, unspecified site; D63.8 Anemia in other chronic diseases classified elsewhere; H40.9 Unspecified glaucoma; K29.50 Unspecified chronic gastritis without bleeding; R13.10 Dysphagia, unspecified; E78.00 Pure hypercholesterolemia, unspecified; E66.9 Obesity, unspecified; Z68.36 Body mass index [BMI] 36.0-36.9, adult; Z87.891 Personal history of nicotine dependence; Z85.038 Personal history of other malignant neoplasm of large intestine; Z90.49 Acquired absence of other specified parts of digestive tract

== ENCOUNTER 2018-06-28 19:23 | Inpatient (IN) | payer MEDICARE ==
[2018-06-28] MEDS ORDERED: Albuterol-Ipratrop 3 mg / 0.5 (3 ml) UD IH STA ×2 (19:50→22:09)
--- NOTE | 2018-06-28 20:00 | ED PDOC ---
Arrival/HPI - General Chief Complaint: Respiratory Distress Time Seen by Provider: 06/28/18 19:32 Historian: Patient - History of Present Illness Narrative History of Present Illness (Text): 06/28/18 19:54 La White is a 68 year old female, whose past medical history includes hypothyroidism, anemia, degenerative joint disease, non-small cell lung cancer, adenocarcinoma, colon cancer, and COPD, who presents to the emergency department accompanied by relative complaining of shortness of breath. Patient states she has been experiencing progressively worsening shortness of breath for the last couple of days, with associated cough, sore throat, and chills. Patient states she has been using her inhaler pump at home with no significant improvement. Patient is currently being treated for her lung cancer with Xalkori. Patient denies any chest pain, abdominal pain, nausea, vomiting, diarrhea, back pain, neck pain, urinary symptoms, headache, dizziness, or any other complaint. Oncologist: Dr. Adames Symptom Onset: Gradual Symptom Course: Worsening Activities at Onset: Light Context: Home Past Medical History - Provider Review Nursing Documentation Reviewed: Yes - Travel History If Yes, travel location?: [place] - Infectious Disease Hx of Infectious Diseases: None - Cardiac Hx Cardiac Disorders: Yes - Pulmonary Hx Respiratory Disorders: Yes Hx Lung Cancer: Yes (stage 3) Hx Pneumonia: Yes - Neurological Hx Paralysis: No - HEENT Hx HEENT Disorder: Yes (Glasses) Hx Cataracts: Yes - Endocrine/Metabolic Hx Endocrine Disorders: Yes Hx Hypothyroidism: Yes - Hematological/Oncological Hx Blood Disorders: Yes Hx Cancer: Yes (Lung, colon) - Integumentary Other/Comment: moles - Musculoskeletal/Rheumatological Hx Musculoskeletal Disorders: Yes Hx Arthritis: Yes (Knee and Wrist) Hx Back Pain: Yes (Sciatica) Hx Falls: No - Gastrointestinal Hx Gastrointestinal Disorders: Yes (GI bleed 20 yrs ago) Hx Gastroesophageal Reflux: Yes Other/Comment: colon ca in remission - Psychiatric Hx Emotional Abuse: No Hx Physical Abuse: No Hx Substance Use: No - Anesthesia Hx Anesthesia Reactions: No Hx Malignant Hyperthermia: No - Suicidal Assessment Feels Threatened In Home Enviroment: No Family/Social History - Physician Review Nursing Documentation Reviewed: Yes Family/Social History: Unknown Family HX Smoking Status: Never Smoked Hx Alcohol Use: No Hx Substance Use: No Allergies/Home Meds Allergies/Adverse Reactions: Allergies No Known Allergies Allergy (Verified 10/04/17 11:57) Home Medications: Home Meds Medication Instructions Recorded Confirmed Levothyroxine [Synthroid] 125 mcg PO DAILY 10/12/17 06/28/18 Pantoprazole [Protonix EC Tab] 40 mg PO DAILY 10/20/17 06/28/18 Albuterol HFA [Ventolin HFA 90 2 puff IH QID PRN 11/10/17 06/28/18 mcg/actuation (8 g)] Crizotinib [Xalkori] 250 mg PO BID 06/28/18 06/28/18 Fluticasone/Vilanterol [Breo 1 pow IH DAILY 06/28/18 06/28/18 Ellipta] Review of Systems - Physician Review All systems were reviewed & negative as marked: Yes - Review of Systems Constitutional: Other (+chills) Eyes: Normal ENT: Normal, Sore Throat Respiratory: SOB, Cough Gastrointestinal: Normal. absent: Abdominal Pain, Diarrhea, Nausea, Vomiting Genitourinary Female: Normal. absent: Dysuria, Frequency, Hematuria, Urine Output Changes Musculoskeletal: Normal. absent: Back Pain, Neck Pain Skin: Normal. absent: Rash Neurological: Normal. absent: Headache, Dizziness Endocrine: Normal Hemo/Lymphatic: Normal Psychiatric: Normal Physical Exam Vital Signs Reviewed: Yes Vital Signs Temp Pulse Resp BP Pulse Ox 06/28/18 19:35 98.3 F 74 24 150/59 L 88 L Temperature: Afebrile Blood Pressure: Hypertensive Pulse: Regular Respiratory Rate: Normal Appearance: Positive for: Well-Appearing, Non-Toxic, Comfortable Pain Distress: None Mental Status: Positive for: Alert and Oriented X 3 - Systems Exam Head: Present: Atraumatic, Normocephalic Pupils: Present: PERRL Extroacular Muscles: Present: EOMI Conjunctiva: Present: Normal Mouth: Present: Moist Mucous Membranes Neck: Present: Normal Range of Motion Respiratory/Chest: Present: Wheezes (Wheezing bilaterally), Decreased Breath Sounds. No: Respiratory Distress, Accessory Muscle Use Cardiovascular: Present: Regular Rate and Rhythm, Normal S1, S2. No: Murmurs Abdomen: No: Tenderness, Distention, Peritoneal Signs Back: Present: Normal Inspection Upper Extremity: Present: Normal Inspection. No: Cyanosis, Edema Lower Extremity: Present: Normal Inspection. No: Edema Neurological: Present: GCS=15, CN II-XII Intact, Speech Normal Skin: Present: Warm, Dry, Normal Color. No: Rashes Psychiatric: Present: Alert, Oriented x 3, Normal Insight, Normal Concentration Medical Decision Making ED Course and Treatment: 06/28/18 19:54 Impression: 68 year old female complaining of worsening shortness of breath, cough, chills, and sore throat. Plan: -- EKG -- CXR -- Labs, cardiac enzymes, BNP -- Duoneb -- Reassess and disposition Prior Visits: Notes and results from previous visits were reviewed. Progress Notes: Reviewed EKG, NSR at 70 bpm. Poor R wave progression. No acute changes. 06/28/18 21:57 Chest X-ray reviewed, shows consolidation in right lung field and consolidation in left lower lung field, possible effusion. 06/28/18 22:[address] Ashraf, who is aware and agrees with plan. Accepts pt in to his service. Requests ICU consult, Dr. Parra on consult. 06/28/18 22:[address] Bell, hardwood flooring specialist, who is aware and agrees with plan. Pt will be admitted to the ICU for pneumonia, NSEMI, COPD exacerbation, pulmonary cancer under Dr. Wang's service. - Critical Care Critical Care Minutes: 30 minutes - Lab Interpretations I have reviewed the lab results: Yes - RAD Interpretation Radiology Orders: 06/28/18 19:49 CHEST PORTABLE [RAD] Stat Sales Agent: ED Physician - EKG Interpretation Interpreted by ED Physician: Yes Type: 12 lead EKG - Medication Orders Current Medication Orders: Discontinued Medications Albuterol/Ipratropium (Duoneb 3 Mg/0.5 Mg (3 Ml) Ud) 3 ml IH ONCE STA Stop: 06/28/18 19:51 - Scribe Statement The provider has reviewed the documentation as recorded by the Jacy Kirk Provider Scribe Attestation: All medical record entries made by the Scribe were at my direction and personally dictated by me. I have reviewed the chart and agree that the record accurately reflects my personal performance of the history, physical exam, medical decision making, and the department course for this patient. I have also personally directed, reviewed, and agree with the discharge instructions and disposition. Disposition/Present on Arrival - Present on Arrival Any Indicators Present on Arrival: No History of DVT/PE: Yes History of Uncontrolled Diabetes: No Urinary Catheter: No History of Decub. Ulcer: No History Surgical Site Infection Following: None - Disposition Have Diagnosis and Disposition been Completed?: Yes Diagnosis: Pneumonia, NSTEMI (non-ST elevated myocardial infarction), CHF (congestive heart failure), Pulmonary cancer, COPD (chronic obstructive pulmonary disease) Disposition: HOSPITALIZED Disposition Time: 22:30 Patient Plan: Admission Condition: GUARDED Discharge Instructions (ExitCare): Heart Failure (ED) Referrals: Gabby Adames MD [Primary Care Provider] - Follow up with primary Forms: [employer] (Serbian)
[2018-06-28 20:18] LABS: HEMOGLOBIN 9.8 g/dL (12.0-16.0); MEAN CELL VOLUME 68.1 fl (80.0-105.0); MEAN CORPUSCULAR HEMOGLOBIN 20.7 pg (25.0-35.0); MEAN CORPUSCULAR HGB CONC 30.4 g/dl (31.0-37.0); MEAN PLATELET VOLUME 8.8 fl (7.0-11.0); RBC 4.73 10^6/uL (3.5-6.1); RED CELL DISTRIBUTION WIDTH 18.5 % (11.5-14.5); WHITE BLOOD COUNT 14.5 10^3/uL (4.5-11.0)
[2018-06-28 20:24] LABS: INR 1.45; PARTIAL THROMBOPLASTIN TIME 25.3 Seconds (25.1-36.5); PROTHROMBIN TIME 16.7 SECONDS (9.4-12.5)
[2018-06-28 20:36] LABS: B-TYPE NATRIURETIC PEPTIDE 1360 pg/mL (0-450)
[2018-06-28 20:39] LABS: ALB/GLOB RATIO 0.8 (1.1-1.8); ALT/SGPT 57 U/L (7-56); AST/SGOT 47 U/L (14-36); BLOOD UREA NITROGEN 15 mg/dL (7-21); CALCIUM 8.2 mg/dL (8.4-10.5); GFR NON-AFRICAN AMERICAN > 60
[2018-06-28 21:08] LABS: TROPONIN I 2.77 ng/mL
[2018-06-28] MEDS ORDERED: Piperacillin/Tazobact 3.375 gm 100 ML IV STA (22:06)
[2018-06-28] MEDS ORDERED: Enoxaparin 100 mg Syringe SC STA (22:08)
[2018-06-28] MEDS ORDERED: Vancomycin 1gm in NS 250ml 1 GM/250 ML BAG IVPB STA (22:09)
[2018-06-28] MEDS ORDERED: Iohexol 350 MG/100 ML VIAL ONE (23:42)
[2018-06-29] MEDS: Albuterol-Ipratrop 3 mg / 0.5 (3 ml) UD IH SCH ×5 (00:42→19:58)
--- NOTE | 2018-06-29 01:08 | CP.PCM.CON ---
<Jimbo Hand - Last Filed: 06/29/18 02:58> History of Present Illness - History of Present Illness History of Present Illness: Jimbo Hand DO, PGY-1 ICU Consult Note for Dr. Bell CC: SOB HPI: Ms. White is a 68 year old female with PMH of right upper lobe NSCLC (on xalkori), colon CA (s/p resection), COPD, hypothyroidism, OA, and Fe-deficiency anemia who presents to ED with SOB progressively worsening over the past week. She states that a week ago she began to get more and more short of breath with exertion, and it has progressed to the point that she is now short of breath at rest. She admits to a history of COPD but states it has been well controlled with breo and ventolin PRN. She also endorses chills, sore throat, fatigue, worsening cough, and LE swelling over the past week as well. She admits to recent travel about a week ago to [place]. She denies fever, nausea/vomiting/diarrhea, calf tenderness, [place], blurred vision, or peripheral numbness/tingling. PMD: a[place]rmeet, Inspector Firearms: [place], Oncologist: Zacarias, Pulm: Fidel Past Medical Hx: right upper lobe NSCLC (on xalkori), colon CA (s/p resection), COPD, hypothyroidism, OA, and Fe-deficiency anemia Past Surgical Hx: colectomy, retinal surgery Allergies: NKA Home medications: Breo, xalkoria, protonix 40 daily, synthroid 125 mcg daily, ventolin PRN for SOB Family Hx: Mother and father both had cancer Social Hx: admits to a prior 30 pack year history of smoking but quit several years ago. She denies alcohol or drug use. Review of Systems - Constitutional Constitutional: Chills. absent: Fever, Night Sweats - EENT Eyes: absent: Blurred Vision - Cardiovascular Cardiovascular: Dyspnea, Dyspnea on Exertion, Leg Edema. absent: Chest Pain, Chest Pain at Rest, Diaphoresis, Palpitations - Respiratory Respiratory: Cough, Dyspnea, Dyspnea on Exertion. absent: Hemoptysis - Gastrointestinal Gastrointestinal: absent: Abdominal Pain, Nausea, Vomiting - Genitourinary Genitourinary: absent: Change in Urinary Stream, Difficulty Urinating - Musculoskeletal Musculoskeletal: absent: Abnormal Gait, Muscle Cramps - Neurological Neurological: absent: Abnormal Gait, Disequilibrium, Dizziness, Numbness, Tingling Past Patient History - Infectious Disease Hx of Infectious Diseases: None - Past Social History Smoking Status: Never Smoked - CARDIAC Hx Cardiac Disorders: Yes - PULMONARY Hx Respiratory Disorders: Yes Hx Lung Cancer: Yes (stage 3) Hx Pneumonia: Yes - NEUROLOGICAL Hx Paralysis: No - HEENT Hx HEENT Problems: Yes (Glasses) Hx Cataracts: Yes - ENDOCRINE/METABOLIC Hx Endocrine Disorders: Yes Hx Hypothyroidism: Yes - HEMATOLOGICAL/ONCOLOGICAL Hx Blood Disorders: Yes Hx Cancer: Yes (Lung, colon) - INTEGUMENTARY Other/Comment: moles - MUSCULOSKELETAL/RHEUMATOLOGICAL Hx Musculoskeletal Disorders: Yes Hx Arthritis: Yes (Knee and Wrist) Hx Back Pain: Yes (Sciatica) Hx Falls: No - GASTROINTESTINAL Hx Gastrointestinal Disorders: Yes (GI bleed 20 yrs ago) Hx Gastroesophageal Reflux: Yes Other/Comment: colon ca in remission - PSYCHIATRIC Hx Emotional Abuse: No Hx Physical Abuse: No Hx Substance Use: No - SURGICAL HISTORY Hx Surgeries: Yes - ANESTHESIA Hx Anesthesia Reactions: No Hx Malignant Hyperthermia: No Meds Allergies/Adverse Reactions: Allergies Allergy/AdvReac Type Severity Reaction Status Date / Time No Known Allergies Allergy Verified 10/04/17 11:57 - Medications Medications: Current Medications Albuterol/Ipratropium (Duoneb 3 Mg/0.5 Mg (3 Ml) Ud) 3 ml IH Q4H JOHN Stop: 06/29/18 07:46 Last Admin: 06/29/18 00:42 Dose: 3 ml Arformoterol Tartrate (Brovana) 15 mcg IH [id number] JOHN Aspirin (Aspirin) 325 mg PO STAT STA Stop: 06/29/18 00:55 Aspirin (Aspirin Chewable) 81 mg PO DAILY JOHN Atorvastatin Calcium (Lipitor) 40 mg PO DAILY JOHN Budesonide (Pulmicort Respules) 0.25 mg IH [id number] JOHN Enoxaparin Sodium (Lovenox) 110 mg SC Q12H JOHN; Protocol Vancomycin HCl (Vancomycin 1gm) 1 gm in 250 mls @ 167 mls/hr IVPB Q12H JOHN; Protocol Piperacillin Sod/Tazobactam Sod (Zosyn 3.375 In Ns 100ml) 100 mls @ 25 mls/hr IVPB Q12 JOHN; Protocol Stop: 06/29/18 13:59 Levothyroxine Sodium (Synthroid) 125 mcg PO DAILY [facility] Methylprednisolone (Solu-Medrol) 40 mg IVP Q8H JOHN Physical Exam - Constitutional Additional comments: In general, Ms. White appears to be in moderate respiratory distress, she is clearly short of breath at rest but is still able to speak and carry a co nversation. She is AA/o x 3. - Head Exam Head Exam: ATRAUMATIC, NORMOCEPHALIC - Eye Exam Eye Exam: EOMI, Normal appearance, PERRL - ENT Exam ENT Exam: Mucous Membranes Moist - Neck Exam Neck exam: Positive for: Full Rom, Normal Inspection. Negative for: Thyromegaly - Respiratory Exam Respiratory Exam: Accessory Muscle Use, Decreased Breath Sounds (decreased breath sounds b/l), Prolonged Expiratory Phase, Wheezes (faint end expiratory wheezes b/l). absent: Chest Wall Tenderness, Rales, Rhonchi - Cardiovascular Exam Cardiovascular Exam: REGULAR RHYTHM, RRR, +S1, +S2. absent: Diastolic murmur, Gallop, Rubs, Systolic Murmur - GI/Abdominal Exam GI & Abdominal Exam: Normal Bowel Sounds, Soft. absent: Guarding, Rebound, Tenderness - Extremities Exam Extremities exam: Positive for: pedal edema (2+ pitting edema to LE b/l), pedal pulses present. Negative for: tenderness - Back Exam Back exam: FULL ROM, NORMAL INSPECTION - Neurological Exam Neurological exam: Alert, Oriented x3 - Psychiatric Exam Psychiatric exam: Normal Affect, Normal Mood - Skin Skin Exam: Dry, Intact, Warm Results - Vital Signs Recent Vital Signs: Last Vital Signs Temp 98.3 F 06/28/18 19:35 Pulse 72 06/28/18 23:15 Resp 24 06/28/18 23:15 BP 111/64 06/28/18 23:15 Pulse Ox 98 06/28/18 23:15 - Labs Result Diagrams: 06/28/18 20:00 06/28/18 20:00 Labs: Laboratory Results - last 24 hr 06/28/18 06/28/18 06/28/18 20:00 20:00 20:00 WBC 14.5 H RBC 4.73 Hgb 9.8 L Hct 32.2 L MCV 68.1 L MCH 20.7 L MCHC 30.4 L RDW 18.5 H Plt Count 686 H MPV 8.8 PT 16.7 H INR 1.45 APTT 25.3 Sodium 136 Potassium 4.1 Chloride 101 Carbon Dioxide 27 Anion Gap 12 BUN 15 Creatinine 0.9 Est GFR ( Amer) > 60 Est GFR (Non-Af Amer) > 60 Random Glucose 103 Calcium 8.2 L Total Bilirubin 0.5 AST 47 H D ALT 57 H Alkaline Phosphatase 144 H D Lactate Dehydrogenase 1017 H Total Creatine Kinase 134 Troponin I 2.77 H* D NT-Pro-B Natriuret Pep 1360 H Total Protein 6.8 Albumin 3.0 Globulin 3.8 Albumin/Globulin Ratio 0.8 L Assessment & Plan - Assessment and Plan (Free Text) Assessment: 68 yo F with PMH of right upper lobe NSCLC (on xalkori), colon CA (s/p resection), COPD, hypothyroidism, OA, and Fe-deficiency anemia is admitted to MICU for worsening respiratory status, positive troponin. Plan: Neuro: AAOx3, no FND, moving extremities past midline Monitor neuro status Reorient patient as necessary Cardio: Troponin positive at 2.77, presumed NSTEMI Inspector Firearms notified Treated with therapeutic lovenox in ED, continue Elevated Troponin/BNP, peripheral edema may be 2/2 acute R-sided HF worsening tumor burden TTE last month showed EF of 59% CTA negative for PE but shows increased size of R hilar mass and worsening hilar lymphadenopathy c/w increasing metastatic disease 2 doses of lasix 40 IVP given for CHF exacerbation component Cardiology consulted, recs appreciated Pulm: SpO2 of 96% on non-rebreather mask B/l basilar edema noted on CXR and chest CT May be 2/2 acute R-sided HF from PE and/or worsening tumor burden Maintain SpO2 > 95% GI: Tolerating diet well without abd pain/nausea/vomiting Protonix for PPX /Nephro: BUN/Cr stable at 15/0.9 F/u UA, UCx results Monitor UOP closely Replete electrolytes as needed Maintain euvolemia Endocrinology: Maintain euglycemia. Heme/Onc: H/H stable at 9.8/32.2 which is close to her baseline from prior visits Microcytic anemia likely 2/2 iron deficiency and/or anemia of chronic disease Continue monitoring H/H CT chest shows increase in size of R hilar mass with worsening compression of R mainstem bronchus and increase in R mediastinal and hilar lymph nodes c/w worsening metastatic disease Currently on xalkori monotherapy for lung CA Further recs per Dr. Adames ID: Afebrile B/l LL infiltrates on CXR/CT may represent underlying PNA vs edema from HF exacerbation Follow up BCx, UCx, Procalcitonin, Lactate Monitor for signs and symptoms of infection DVT/GI PPX: Therapeutic lovenox for NSTEMI Full Code Diet: HHD Monitor in MICU Case and plan reviewed and discussed with my attending Dr. Arabella Hand, DO IM Resident PGY-1 <Rubi Bell - Last Filed: 06/30/18 15:14> Meds - Medications Medications: Current Medications Albuterol/Ipratropium (Duoneb 3 Mg/0.5 Mg (3 Ml) Ud) 3 ml IH [id number] [facility] Last Admin: 06/30/18 13:41 Dose: 3 ml Albuterol/Ipratropium (Duoneb 3 Mg/0.5 Mg (3 Ml) Ud) 3 ml IH Q2H PRN PRN Reason: Shortness of Breath Arformoterol Tartrate (Brovana) 15 mcg IH [id number] JOHN Last Admin: 06/30/18 07:11 Dose: 15 mcg Aspirin (Aspirin Chewable) 81 mg PO DAILY JOHN Last Admin: 06/30/18 10:02 Dose: 81 mg Atorvastatin Calcium (Lipitor) 40 mg PO DAILY JOHN Last Admin: 06/30/18 10:03 Dose: 40 mg Budesonide (Pulmicort Respules) 0.5 mg IH [id number] JOHN Last Admin: 06/30/18 07:12 Dose: 0.5 mg Doxycycline Hyclate (Doryx) 100 mg PO Q12 JOHN; Protocol Last Admin: 06/30/18 10:03 Dose: 100 mg Enoxaparin Sodium (Lovenox) 110 mg SC Q12H JOHN; Protocol Last Admin: 06/30/18 10:13 Dose: 110 mg Furosemide (Lasix) 20 mg IVP Q12 JOHN Last Admin: 06/30/18 10:01 Dose: 20 mg Vancomycin HCl (Vancomycin 1gm) 1 gm in 250 mls @ 167 mls/hr IVPB Q12H JOHN; Protocol Last Admin: 06/30/18 10:14 Dose: 167 mls/hr Meropenem (Merrem Iv 1 Gm Premix) 1 gm in 50 mls @ 100 mls/hr IVPB Q8 [facility]; Protocol Stop: 07/08/18 07:04 Last Admin: 06/30/18 06:42 Dose: 100 mls/hr Levothyroxine Sodium (Synthroid) 125 mcg PO 0600 [facility] Last Admin: 06/29/18 05:36 Dose: 125 mcg Methylprednisolone (Solu-Medrol) 40 mg IVP Q8H JOHN Last Admin: 06/30/18 06:42 Dose: 40 mg Metoprolol Tartrate (Lopressor) 25 mg PO BID [facility] Last Admin: 06/30/18 10:02 Dose: 25 mg Ondansetron HCl (Zofran Inj) 4 mg IVP Q4H PRN PRN Reason: Nausea/Vomiting Results - Vital Signs Recent Vital Signs: Last Vital Signs Temp 98.4 F 06/30/18 12:00 Pulse 67 06/30/18 12:00 Resp 18 06/30/18 12:00 BP 116/62 06/30/18 12:00 Pulse Ox 96 06/30/18 06:18 - Labs Result Diagrams: 06/30/18 05:30 06/30/18 05:30 Labs: Laboratory Results - last 24 hr 06/29/18 06/29/18 06/30/18 07:30 14:20 05:30 WBC 20.5 H RBC 4.54 Hgb 9.2 L Hct 30.9 L MCV 68.1 L MCH 20.3 L MCHC 29.8 L RDW 18.4 H Plt Count 672 H MPV 8.9 Gran % 91.8 H Lymph % (Auto) 2.9 L [place] % (Auto) 5.3 Eos % (Auto) 0.0 L Baso % (Auto) 0.0 Gran # 18.77 H Lymph # (Auto) 0.6 L [place] # (Auto) 1.1 H Eos # (Auto) 0.0 Baso # (Auto) 0.01 Sodium Potassium Chloride Carbon Dioxide Anion Gap BUN Creatinine Est GFR ( Amer) Est GFR (Non-Af Amer) Random Glucose Calcium Total Bilirubin AST ALT Alkaline Phosphatase Troponin I 1.00 H* Total Protein Albumin Globulin Albumin/Globulin Ratio Procalcitonin 0.37 Free T4 06/30/18 06/30/18 06/30/18 05:30 05:30 06:30 WBC RBC Hgb Hct MCV MCH MCHC RDW Plt Count MPV Gran % Lymph % (Auto) [place] % (Auto) Eos % (Auto) Baso % (Auto) Gran # Lymph # (Auto) [place] # (Auto) Eos # (Auto) Baso # (Auto) Sodium 138 Potassium 3.9 Chloride 102 Carbon Dioxide 30 Anion Gap 11 BUN 20 Creatinine 0.9 Est GFR ( Amer) > 60 Est GFR (Non-Af Amer) > 60 Random Glucose 168 H Calcium 8.2 L Total Bilirubin 0.4 AST 32 ALT 48 Alkaline Phosphatase 149 H Troponin I 0.81 H* Total Protein 6.2 Albumin 2.7 L Globulin 3.5 Albumin/Globulin Ratio 0.8 L Procalcitonin Free T4 1.04 Attending/Attestation - Attestation I have personally seen and examined this patient.: Yes I have fully participated in the care of the patient.: Yes I have reviewed all pertinent clinical information: Yes
[2018-06-29 01:58] LABS: ARTERIAL BLOOD GAS HCO3 27.3 mmol/L (21-28); ARTERIAL BLOOD GAS O2 SAT 94.9 % (95-98); ARTERIAL BLOOD GAS PCO2 43 mm/Hg (35-45); ARTERIAL BLOOD GAS PH 7.41 (7.35-7.45); ARTERIAL BLOOD GAS TCO2 28.6 mmol.L (22-28)
[2018-06-29 02:00] VITALS: BMI 38.4
[2018-06-29 03:12] LABS: BASO # 0.01 K/mm3 (0.0-2.0); BASO % 0.1 % (0.0-3.0); EOS % 0.1 % (1.5-5.0); GRAN # 16.89 (1.4-6.5); GRAN % 91.7 % (50.0-68.0); HEMOGLOBIN 9.7 g/dL (12.0-16.0); LYMPH # 0.6 (1.2-3.4); LYMPH % 3.5 % (22.0-35.0); MEAN CELL VOLUME 68.3 fl (80.0-105.0); MEAN CORPUSCULAR HEMOGLOBIN 20.4 pg (25.0-35.0); MEAN CORPUSCULAR HGB CONC 29.8 g/dl (31.0-37.0); MONO # 0.8 (0.1-0.6); MONO % 4.6 % (1.0-6.0); PLATELET COUNT 665 10^3/uL (120.0-450.0); RBC 4.76 10^6/uL (3.5-6.1); RED CELL DISTRIBUTION WIDTH 18.3 % (11.5-14.5); WHITE BLOOD COUNT 18.4 10^3/uL (4.5-11.0)
[2018-06-29 03:16] LABS: BLOOD UREA NITROGEN 14 mg/dL (7-21); GFR NON-AFRICAN AMERICAN > 60
[2018-06-29 04:49] LABS: ANISOCYTOSIS SLIGHT; BAND 2 % (0-2); HYPOCHROMIA 1+; LYMPHOCYTE 4 % (22.0-35.0); MONOCYTE 4 % (1.0-6.0); NEUTROPHIL 90 % (50.0-70.0); PLATELET ESTIMATE HIGH (NORMAL); POLYCHROMASIA SLIGHT
[2018-06-29 04:53] LABS: POIKILOCYTOSIS SLIGHT; SPHEROCYTE SLIGHT
[2018-06-29 04:54] LABS: TOXIC GRANULATION SLIGHT
[2018-06-29 04:59] LABS: TROPONIN I 1.87 ng/mL
[2018-06-29] MEDS: MethylPREDNISolone 40 mg Vial IVP SCH ×3 (05:37→22:18)
[2018-06-29] MEDS ORDERED: Levothyroxine 125 MCG TAB PO SCH (06:00)
[2018-06-29 07:12] LABS: URINE BILIRUBIN NEGATIVE (NEGATIVE); URINE BLOOD NEGATIVE (NEGATIVE); URINE GLUCOSE (UA) NEGATIVE (NEGATIVE); URINE LEUKOCYTE ESTERASE NEGATIVE Leu/uL (NEGATIVE); URINE PROTEIN NEGATIVE mg/dL (<30 mg/dL); URINE UROBILINOGEN 0.2 E.U./dL (<1 E.U./dL)
[2018-06-29 07:20] LABS: URINE APPEARANCE CLEAR (CLEAR); URINE COLOR YELLOW (YELLOW)
--- NOTE | 2018-06-29 07:24 | CON ---
DATE: 06/29/2018 PULMONARY CONSULTATION REASON FOR PULMONARY CONSULTATION: Shortness of breath. REFERRING PHYSICIAN: Dr. Gerard Gibson. HISTORY OF PRESENT ILLNESS: History is obtained via extensive discussion with the night nurse. I have also reviewed the chart at length. I have also discussed the case with the patient at length. The patient is a chronically ill 68-year-old female, with past medical history significant for advanced [id number] lung cancer, advanced chronic obstructive pulmonary disease, thyroid disease, anemia, who presents to [facility] ([facility] with a 1-week history of increasing shortness of breath at rest, dyspnea on exertion, and cough. There is no history of sputum production. There is no history of chest pain, coughing up of blood, or chest pain - made worse with deep respirations. There is no history of temperatures, chills or infectious exposure. There is no history of night sweats, weight loss or appetite change prior to the above events. There is no history of calf pains. However, the patient does state to bilateral leg swelling over the past week. No history of syncope or diaphoresis. The patient has traveled recently to [place]. No history of trauma. REVIEW OF SYSTEMS: No history of nausea, vomiting or diarrhea. No acute urinary symptoms. No new neurologic complaints. Rest of the review of systems is negative. ALLERGIES: NO KNOWN ALLERGIES. SOCIAL HISTORY: Positive for tobacco and negative for alcohol. FAMILY HISTORY: No inheritable diseases. HOME MEDICATIONS: Include Breo Ellipta, Protonix, Synthroid and Xalkori. PHYSICAL EXAMINATION: GENERAL: The patient is mildly short of breath this morning, but in no acute distress. VITAL SIGNS: Temperature is 98.6, pulse on the monitor is 67, respiratory rate 22, blood pressure 127/77. Oxygen saturation on a non-rebreather mask is 95%. HEENT: Normocephalic, atraumatic. NECK: No JVD. CARDIOVASCULAR: Positive S1, S2. Questionable S3 gallop. LUNGS: Decreased breath sounds with crackles at both bases. Mild bilateral rhonchi. Few wheezes are also appreciated. EXTREMITIES: Positive for moderate edema. No cyanosis or clubbing. Calves are nontender to palpation. GI: Abdomen is soft, nontender and nondistended. Bowel sounds are positive. SKIN: No acute rash. NEUROLOGIC: Limited at the present time. PERTINENT LABORATORY DATA: CT scan of the chest was done late last night and reviewed. This CT scan was compared to the CT scan of 11/19/2017. There is an increase in the size of the right hilar mass. There is also an increase in the size of the mediastinal and hilar lymph nodes - representing metastatic disease. There are interstitial changes consistent with congestive heart failure. There are also moderate bilateral pleural effusions. There is adjacent/compressive atelectasis next to the effusions. CBC: White count 18.4K, hemoglobin 9.7, hematocrit 32.5, platelets of 665,000. Complete metabolic profile: Calcium 8.2, AST 47, ALT 57, alkaline phosphatase 144, LDH 1017. Troponin 2.77. B-type natriuretic peptide 1360. Rest of the metabolic profile is within normal limits. IMPRESSION: 1. Advanced/extensive non-small cell lung cancer. 2. Advanced chronic obstructive pulmonary disease. 3. Acute congestive heart failure. 4. Fin-VB-pcjqjbbsa myocardial infarction. 5. Bilateral pleural effusions. 6. Anemia. PLAN: Again, I did discuss the case with the night nurse at length. I have also reviewed the chart at length, and discussed the case with the patient at length. The patient presents to [facility] ([facility] with a 1-week history of worsening pulmonary symptoms. I did review the CT scan of the chest - done late last night. Findings are noted above. There appears to be worsening of her metastatic lung cancer. There also appears to be signs of acute congestive heart failure with bilateral pleural effusions. The patient was given Lasix during the night - with good urine output. I have also reviewed the laboratory data. A significant rise in the troponin is noted. A significant rise in the B-type nature peptide is also noted. Cardiology consult with Dr. Delarosa has been ordered. On physical exam, there is moderate bronchospasm noted. I will continue with the frequent DuoNeb treatments and moderate dose intravenous steroids. I will also increase the dosage of inhaled steroids this morning. The patient is also on antibiotic therapy. Procalcitonin has been ordered. Infectious Disease consult Dr. Rooney has also been ordered. The patient appears critically ill at this point in time. Her overall/future prognosis appears poor. I will discuss the above with the entire ICU team in the next few moments. I will discuss the above with the attending physician later this morning. Thank you very much for this pulmonary consultation. Harris Parra MD DAVID
[2018-06-29] MEDS: Arformoterol 15 mcg/2 ml Inh Sol IH SCH ×2 (07:29→19:58)
[2018-06-29] MEDS: Budesonide 0.5 mg/2 ml Inhal Susp UD IH SCH ×2 (07:30→19:58)
[2018-06-29] MEDS: Meropenem IV 1 gm in NS 1 GM/50 ML BAG IVPB SCH ×3 (07:56→22:23)
[2018-06-29] MEDS ORDERED: Budesonide 0.25 mg/2 ml Inhal Susp UD IH SCH (08:00)
[2018-06-29 08:08] LABS: ALB/GLOB RATIO 0.8 (1.1-1.8); ALBUMIN 3.1 g/dL (3.0-4.8); ALT/SGPT 54 U/L (7-56); AST/SGOT 38 U/L (14-36); BLOOD UREA NITROGEN 15 mg/dL (7-21); CALCIUM 7.9 mg/dL (8.4-10.5); GFR NON-AFRICAN AMERICAN 55; TROPONIN I 1.25 ng/mL
[2018-06-29] MEDS ORDERED: Albuterol-Ipratrop 3 mg / 0.5 (3 ml) UD IH PRN (08:23)
--- NOTE | 2018-06-29 08:44 | CON ---
DATE: 06/29/2018 INDICATIONS: Shortness of breath, ssi-fwqkc-[id number] lung cancer, positive troponins. HISTORY OF PRESENT ILLNESS: This is a 68-year-old woman known to our practice, admitted yesterday when she presented with several days of increasing shortness of breath. She had had some left shoulder discomfort but this resolved. The shortness of breath got worse, she came to the emergency room and was admitted to the Intensive Care Unit. Her symptoms have improved with the treatments including Lasix, diuresis and CPAP mask. There is no chest pain, orthopnea, PND, syncope, presyncope, lightheadedness, dizziness, vertigo, palpitations, edema, fever, chills, hemoptysis, sputum production, abdominal pain, nausea, vomiting, diarrhea, constipation, melena. PAST MEDICAL HISTORY: Notable for recent [facility] admission in May. During that admission, she had a run of nonsustained VT. Cardiac workup included an echocardiogram which showed normal left ventricular function. She has a history of pyb-asbix-ebfu lung cancer, treated with Xalkori by Dr. Adames. She has had colon cancer with resection. She has a history of COPD with a history of cigarette smoking in the past. She has iron deficiency anemia, hypothyroidism, gallstones, recent cholecystitis, GERD but no history of rheumatic fever, angina, stroke, TIA, diabetes or gout. MEDICATIONS: At the time of admission include Breo Ellipta, Protonix, Synthroid, Ventolin and Xalkori. ALLERGIES: THERE WERE NO MEDICATION ALLERGIES REPORTED. SOCIAL HISTORY: She lives at home. She is ambulatory. She no longer smokes. She does not drink alcohol significantly. FAMILY HISTORY: Positive for cancer. REVIEW OF SYSTEMS: A 10-point review of systems otherwise unremarkable except as noted above. PHYSICAL EXAMINATION: GENERAL: She is a well-developed woman lying in bed with a BiPAP mask in the Intensive Care Unit. VITAL SIGNS: She is in sinus rhythm to sinus bradycardia, 59-68 beats per minute. She is afebrile. Blood pressure 127/77, respirations 18-22, O2 sat is 93-96%. Currently, on non-rebreather mask. HEENT: Reveals no neck vein distention, thyromegaly, carotid bruits. Mucous membranes moist. Conjunctivae pink. NECK: Supple. LUNGS: Lung mccoy, scattered rhonchi. HEART: Examination of the heart revealed normal first and second heart sounds. PMI is not palpable. ABDOMEN: Soft. Bowel sounds present. No mass, organomegaly, tenderness, rebound, guarding, CVA tenderness or palpable abdominal aortic aneurysm. EXTREMITIES: Revealed no cyanosis, clubbing or edema. NEUROLOGIC: She is awake, alert and oriented. PSYCHIATRIC: Normal as to mood and affect. SKIN: Warm and dry. No rash or cellulitis. LABORATORY AND IMAGING: Chest x-ray reveals mass in the right mid lung field. No definite CHF, there may be a left pleural effusion. It is not formally read yet. CT scan of the chest was done. It is not formally read yet. Apparently, the lung cancer has progressed. Lower extremity venous Dopplers were done, results are not available yet. White count 18,400, hemoglobin 9.7, hematocrit 32.5, platelet count 665,000. PT 16.7, INR normal, PTT normal. Electrolytes: BUN, creatinine, blood sugar unremarkable. Elevated LFTs are noted. CK 134, troponin 2.77, repeat 1.87. BNP is 1360. TSH is low at 0.03. Urinalysis is unremarkable. Influenza A and B are negative. IMPRESSION: La White is a 68-year-old patient with qhb-[id number] lung cancer which apparently is advanced on chemotherapy presenting with respiratory symptoms, shortness of breath and found to have an abnormal chest x-ray and CT scan suggesting possible pneumonia, possible congestive heart failure, advanced lung cancer. Her symptoms have improved with treatment, troponins are elevated. This may represent demand ischemia given the lack of typical symptoms of chest pain, no acute changes on her EKG and normal CK. At this time, she is in the Intensive Care Unit. She is having a Pulmonary consultation. She is followed by Dr. Adames's team. She got IV Lasix. She has diuresed well. Her breathing is better. She is on aspirin, pulmonary treatments, Lasix, Lipitor, Lovenox, meropenem, budesonide, methylprednisolone, levothyroxine, vancomycin and Zosyn. She has been cultured. An echocardiogram is ordered. In the recent past, the LV function has been normal. I will repeat her EKG. She will have serial troponins. I will follow along with you, I will make additional recommendations based on her clinical course. Overall, a conservative course of cardiac care is anticipated. Eagle Delarosa MD DAVID
--- NOTE | 2018-06-29 08:45 | CT ---
Date of service: 06/28/2018 PROCEDURE: CT Chest with contrast (Pulmonary Angiogram) HISTORY: hx lung CA, recent travel, r/o PE COMPARISON: CT 11/19/2017 TECHNIQUE: Axial computed tomography images were obtained of the chest in the pulmonary arterial phase of enhancement. Coronal and sagittal reformatted images were created and reviewed. Intravenous contrast dose: 100 cc of Omni 350 Radiation dose: Total exam DLP = 533.09 mGy-cm. This CT exam was performed using one or more of the following dose reduction techniques: Automated exposure control, adjustment of the mA and/or kV according to patient size, and/or use of iterative reconstruction technique. FINDINGS: PULMONARY ARTERIES: Unremarkable. No pulmonary embolism. There is tumor encasement of the right pulmonary artery but no evidence of embolus AORTA: No acute findings. No thoracic aortic aneurysm. Minimal aortic calcifications LUNGS: There is an increase in the size of the right hilar mass measuring 7.6 x 5.2 cm. There is increased consolidation in the right upper lobe with compression of the right bronchus. PLEURAL SPACES: New moderate size pleural effusions bilaterally and a small pericardial effusion HEART: Small pericardial effusion LYMPH NODES: Increased mediastinal adenopathy. 3.6 cm pretracheal lymph node. 4.8 cm sub carinal adenopathy BONES, CHEST WALL: Unremarkable. No fracture or destructive lesion OTHER FINDINGS: The report concurs with the preliminary [facility] report IMPRESSION: Increased size of right hilar low lung mass and mediastinal adenopathy. New pleural and pericardial effusions. Encasement of the right pulmonary artery but no evidence of emboli.
--- NOTE | 2018-06-29 09:07 | RAD ---
Date of service: 06/28/2018 HISTORY: sob COMPARISON: Chest radiographs 06/08/2018. FINDINGS: LUNGS: Right perihilar and left basilar opacity are identified in the interval with left hemidiaphragm is obscured. The pattern suggests possible poly lobar pneumonia. PLEURA: Mild left pleural effusion is difficult to completely exclude. Borderline right pleural effusion potentially blunting right costophrenic sulcus versus artifact from body habitus. No pneumothorax appreciable bilaterally. CARDIOVASCULAR: Calcific atherosclerotic changes are seen related to the thoracic aorta. Prominent appearing cardiac silhouette in the interval, potentially a function of frontal technique. Pulmonary vascular congestion appears mild. OSSEOUS STRUCTURES: No significant abnormalities. VISUALIZED UPPER ABDOMEN: Normal. OTHER FINDINGS: None. IMPRESSION: Potential multifocal pneumonia right perihilar left basilar distributions with small pleural effusion likely. Borderline right pleural effusion. Mild pulmonary vascular congestion suspected.
--- NOTE | 2018-06-29 09:53 | US ---
HISTORY: Leg pain and swelling. Evaluate for DVT PHYSICIAN(S): Gus Jimenez MD. TECHNIQUE: Duplex sonography and color-flow Doppler with graded compression were used to evaluate the deep venous systems of both lower extremities. FINDINGS: The visualized deep venous systems of both lower extremities are sonographically normal and compressible. Normal wave forms and augmentation are seen. There is no sonographic evidence for deep venous thrombosis in the visualized segments of both lower extremities. IMPRESSION: No sonographic evidence for deep venous thrombosis in the visualized segments of both lower extremities.
[2018-06-29] MEDS ORDERED: Piperacillin/Tazobact 3.375 gm 100 ML IVPB SCH ×2 (10:00→14:00)
[2018-06-29] MEDS: Vancomycin 1gm in NS 250ml 1 GM/250 ML BAG IVPB SCH ×2 (11:07→22:24)
[2018-06-29] MEDS: Enoxaparin 120 mg Syringe SC SCH ×2 (11:08→22:17)
--- NOTE | 2018-06-29 11:47 | CP.CCUPN ---
<lAex Waite - Last Filed: 06/29/18 12:43> CCU Subjective - Physician Review Subjective (Free Text): CRITICAL CARE PROGRESS NOTE FOR DR. MAY Waite PGY-1 Pt seen and examined at bedside this am. She reports improving in SOB with non- rebreather and is comfortable on NC. No acute nursing events overnight. She denies 12 point ROS CCU Objective - Vital Signs / Intake & Output Vital Signs (Last 4 hours): Vital Signs Resp BP 06/29/18 11:09 107/42 L 06/29/18 08:30 20 Intake and Output (Last 8hrs): Intake & Output 06/28/18 06/29/18 06/29/18 22:59 06:59 14:59 Weight 108.862 kg 111.272 kg Other: Voiding Method Bedside Commode - Physical Exam Head: Positive for: Atraumatic, Normocephalic Pupils: Positive for: PERRL Extroacular Muscles: Positive for: EOMI Conjunctiva: Positive for: Normal Mouth: Positive for: Moist Mucous Membranes Neck: Positive for: Normal Range of Motion Respiratory/Chest: Positive for: Wheezes (Wheezing bilaterally), Decreased Breath Sounds. Negative for: Respiratory Distress, Accessory Muscle Use Cardiovascular: Positive for: Regular Rate and Rhythm, Normal S1, S2. Negative for: Murmurs Abdomen: Negative for: Tenderness, Distention, Peritoneal Signs Back: Positive for: Normal Inspection Upper Extremity: Positive for: Normal Inspection. Negative for: Cyanosis, Edema Lower Extremity: Positive for: Normal Inspection. Negative for: Edema Neurological: Positive for: GCS=15, CN II-XII Intact, Speech Normal Skin: Positive for: Warm, Dry, Normal Color. Negative for: Rashes Psychiatric: Positive for: Alert, Oriented x 3, Normal Insight, Normal Concentration - Medications Active Medications: Active Medications Generic Name Dose Route Start Last Admin Trade Name Freq PRN Reason Stop Dose Admin Albuterol/Ipratropium 3 ml 06/29/18 14:00 Duoneb 3 Mg/0.5 Mg (3 Ml) Ud IH [id number] JOHN Albuterol/Ipratropium 3 ml 06/29/18 08:23 Duoneb 3 Mg/0.5 Mg (3 Ml) Ud IH Q2H PRN Shortness of Breath Arformoterol Tartrate 15 mcg 06/29/18 08:00 06/29/18 07:29 Brovana IH 15 mcg [id number] JOHN Administration Aspirin 81 mg 06/29/18 10:00 06/29/18 11:08 Aspirin Chewable PO 81 mg DAILY JOHN Administration Atorvastatin Calcium 40 mg 06/29/18 10:00 06/29/18 11:09 Lipitor PO 40 mg DAILY JOHN Administration Budesonide 0.5 mg 06/29/18 08:00 06/29/18 07:30 Pulmicort Respules IH 0.5 mg [id number] JOHN Administration Doxycycline Hyclate 100 mg 06/29/18 10:45 06/29/18 11:08 Doryx PO 100 mg Q12 JOHN Administration Protocol Enoxaparin Sodium 110 mg 06/29/18 10:00 06/29/18 11:08 Lovenox SC 110 mg Q12H JOHN Administration Protocol Furosemide 20 mg 06/29/18 10:00 06/29/18 11:09 Lasix IVP 20 mg Q12 JOHN Administration Vancomycin HCl 1 gm in 250 mls @ 167 mls/hr 06/29/18 11:00 06/29/18 11:07 Vancomycin 1gm IVPB 167 mls/hr Q12H JOHN Administration Protocol Meropenem 1 gm in 50 mls @ 100 mls/hr 06/29/18 07:03 06/29/18 07:56 Merrem Iv 1 Gm Premix IVPB 07/08/18 07:04 100 mls/hr Q8 JOHN Administration Protocol Levothyroxine Sodium 125 mcg 06/29/18 06:00 06/29/18 05:36 Synthroid PO 125 mcg 0600 JOHN Administration Methylprednisolone 40 mg 06/29/18 06:00 06/29/18 05:37 Solu-Medrol IVP 40 mg Q8H JOHN Administration Ondansetron HCl 4 mg 06/29/18 02:47 Zofran Inj IVP Q4H PRN Nausea/Vomiting - Patient Studies Lab Studies: Lab Studies 06/29/18 06/29/18 06/29/18 Range/Units 07:30 06:00 02:45 WBC (4.5-11.0) 10^3/uL RBC (3.5-6.1) 10^6/uL Hgb (12.0-16.0) g/dL Hct (36.0-48.0) % MCV (80.0-105.0) fl MCH (25.0-35.0) pg MCHC (31.0-37.0) g/dl RDW (11.5-14.5) % Plt Count (120.0-450.0) 10^3/uL MPV (7.0-11.0) fl Gran % (50.0-68.0) % Lymph % (Auto) (22.0-35.0) % [place] % (Auto) (1.0-6.0) % Eos % (Auto) (1.5-5.0) % Baso % (Auto) (0.0-3.0) % Gran # (1.4-6.5) Lymph # (Auto) (1.2-3.4) [place] # (Auto) (0.1-0.6) Eos # (Auto) (0.0-0.7) Baso # (Auto) (0.0-2.0) K/mm3 Neutrophils % (Manual) (50.0-70.0) % Band Neutrophils % (0-2) % Lymphocytes % (Manual) (22.0-35.0) % Monocytes % (Manual) (1.0-6.0) % Toxic Granulation Platelet Evaluation (NORMAL) Polychromasia Hypochromasia Poikilocytosis (manual Anisocytosis (manual) Spherocytes PT (9.4-12.5) SECONDS INR APTT (25.1-36.5) Seconds pCO2 (35-45) mm/Hg pO2 (80-100) mm/Hg HCO3 (21-28) mmol/L ABG pH (7.35-7.45) ABG Total CO2 (22-28) mmol.L ABG O2 Saturation (95-98) % ABG Base Excess (-2.0-3.0) mmol/L ABG Potassium (3.6-5.2) mmol/L Sodium 138 137 (132-148) mmol/L Chloride 103 102 (98-107) mmol/L Glucose (65-105) mg/dl Lactate (0.7-2.1) mmol/L FiO2 % Potassium 3.9 3.9 (3.6-5.0) mmol/L Carbon Dioxide 26 27 (21-33) mmol/L Anion Gap 12 12 (10-20) BUN 15 14 (7-21) mg/dL Creatinine 1.0 0.9 (0.7-1.2) mg/dl Est GFR ( Amer) > 60 > 60 Est GFR (Non-Af Amer) 55 > 60 Random Glucose 181 H 141 H (70-110) mg/dL Calcium 7.9 L 8.0 L (8.4-10.5) mg/dL Phosphorus 5.8 H (2.5-4.5) mg/dL Magnesium 1.9 (1.7-2.2) mg/dL Total Bilirubin 0.6 (0.2-1.3) mg/dL AST 38 H (14-36) U/L ALT 54 (7-56) U/L Alkaline Phosphatase 154 H (38-126) U/L Lactate Dehydrogenase (333-699) U/L Total Creatine Kinase (35-230) U/L Troponin I 1.25 H* D 1.87 H* D ng/mL NT-Pro-B Natriuret Pep (0-450) pg/mL Total Protein 6.9 (5.8-8.3) g/dL Albumin 3.1 (3.0-4.8) g/dL Globulin 3.8 gm/dL Albumin/Globulin Ratio 0.8 L (1.1-1.8) TSH 3rd Generation (0.46-4.68) mIU/mL Arterial Blood Potassium (3.6-5.2) mmol/L Urine Color Yellow (YELLOW) Urine Appearance Clear (CLEAR) Urine pH 6.0 (4.7-8.0) Ur Specific [place] <= 1.005 (1.005-1.035) Urine Protein Negative (<30 mg/dL) mg/dL Urine Glucose (UA) Negative (NEGATIVE) mg/dL Urine Ketones Negative (NEGATIVE) mg/dL Urine Blood Negative (NEGATIVE) Urine Nitrate Negative (NEGATIVE) Urine Bilirubin Negative (NEGATIVE) Urine Urobilinogen 0.2 (<1 E.U./dL) E.U./dL Ur Leukocyte Esterase Negative (NEGATIVE) Kerrie/uL Influenza Typ A,B (EIA) (NEGATIVE) 06/29/18 06/29/18 06/29/18 Range/Units 02:45 02:45 00:35 WBC 18.4 H D (4.5-11.0) 10^3/uL RBC 4.76 (3.5-6.1) 10^6/uL Hgb 9.7 L (12.0-16.0) g/dL Hct 32.5 L (36.0-48.0) % MCV 68.3 L (80.0-105.0) fl MCH 20.4 L (25.0-35.0) pg MCHC 29.8 L (31.0-37.0) g/dl RDW 18.3 H (11.5-14.5) % Plt Count 665 H (120.0-450.0) 10^3/uL MPV 9.0 (7.0-11.0) fl Gran % 91.7 H (50.0-68.0) % Lymph % (Auto) 3.5 L (22.0-35.0) % [place] % (Auto) 4.6 (1.0-6.0) % Eos % (Auto) 0.1 L (1.5-5.0) % Baso % (Auto) 0.1 (0.0-3.0) % Gran # 16.89 H (1.4-6.5) Lymph # (Auto) 0.6 L (1.2-3.4) [place] # (Auto) 0.8 H (0.1-0.6) Eos # (Auto) 0.0 (0.0-0.7) Baso # (Auto) 0.01 (0.0-2.0) K/mm3 Neutrophils % (Manual) 90 H (50.0-70.0) % Band Neutrophils % 2 (0-2) % Lymphocytes % (Manual) 4 L (22.0-35.0) % Monocytes % (Manual) 4 (1.0-6.0) % Toxic Granulation Slight Platelet Evaluation High (NORMAL) Polychromasia Slight Hypochromasia 1+ Poikilocytosis (manual Slight Anisocytosis (manual) Slight Spherocytes Slight PT (9.4-12.5) SECONDS INR APTT (25.1-36.5) Seconds pCO2 (35-45) mm/Hg pO2 (80-100) mm/Hg HCO3 (21-28) mmol/L ABG pH (7.35-7.45) ABG Total CO2 (22-28) mmol.L ABG O2 Saturation (95-98) % ABG Base Excess (-2.0-3.0) mmol/L ABG Potassium (3.6-5.2) mmol/L Sodium (132-148) mmol/L Chloride (98-107) mmol/L Glucose (65-105) mg/dl Lactate (0.7-2.1) mmol/L FiO2 % Potassium (3.6-5.0) mmol/L Carbon Dioxide (21-33) mmol/L Anion Gap (10-20) BUN (7-21) mg/dL Creatinine (0.7-1.2) mg/dl Est GFR ( Amer) Est GFR (Non-Af Amer) Random Glucose (70-110) mg/dL Calcium (8.4-10.5) mg/dL Phosphorus (2.5-4.5) mg/dL Magnesium (1.7-2.2) mg/dL Total Bilirubin (0.2-1.3) mg/dL AST (14-36) U/L ALT (7-56) U/L Alkaline Phosphatase (38-126) U/L Lactate Dehydrogenase (333-699) U/L Total Creatine Kinase (35-230) U/L Troponin I ng/mL NT-Pro-B Natriuret Pep (0-450) pg/mL Total Protein (5.8-8.3) g/dL Albumin (3.0-4.8) g/dL Globulin gm/dL Albumin/Globulin Ratio (1.1-1.8) TSH 3rd Generation 0.03 L (0.46-4.68) mIU/mL Arterial Blood Potassium (3.6-5.2) mmol/L Urine Color (YELLOW) Urine Appearance (CLEAR) Urine pH (4.7-8.0) Ur Specific [place] (1.005-1.035) Urine Protein (<30 mg/dL) mg/dL Urine Glucose (UA) (NEGATIVE) mg/dL Urine Ketones (NEGATIVE) mg/dL Urine Blood (NEGATIVE) Urine Nitrate (NEGATIVE) Urine Bilirubin (NEGATIVE) Urine Urobilinogen (<1 E.U./dL) E.U./dL Ur Leukocyte Esterase (NEGATIVE) Kerrie/uL Influenza Typ A,B (EIA) Negative for flu a/b (NEGATIVE) 06/28/18 06/28/18 06/28/18 Range/Units 20:00 20:00 20:00 WBC 14.5 H (4.5-11.0) 10^3/uL RBC 4.73 (3.5-6.1) 10^6/uL Hgb 9.8 L (12.0-16.0) g/dL Hct 32.2 L (36.0-48.0) % MCV 68.1 L (80.0-105.0) fl MCH 20.7 L (25.0-35.0) pg MCHC 30.4 L (31.0-37.0) g/dl RDW 18.5 H (11.5-14.5) % Plt Count 686 H (120.0-450.0) 10^3/uL MPV 8.8 (7.0-11.0) fl Gran % (50.0-68.0) % Lymph % (Auto) (22.0-35.0) % [place] % (Auto) (1.0-6.0) % Eos % (Auto) (1.5-5.0) % Baso % (Auto) (0.0-3.0) % Gran # (1.4-6.5) Lymph # (Auto) (1.2-3.4) [place] # (Auto) (0.1-0.6) Eos # (Auto) (0.0-0.7) Baso # (Auto) (0.0-2.0) K/mm3 Neutrophils % (Manual) (50.0-70.0) % Band Neutrophils % (0-2) % Lymphocytes % (Manual) (22.0-35.0) % Monocytes % (Manual) (1.0-6.0) % Toxic Granulation Platelet Evaluation (NORMAL) Polychromasia Hypochromasia Poikilocytosis (manual Anisocytosis (manual) Spherocytes PT 16.7 H (9.4-12.5) SECONDS INR 1.45 APTT 25.3 (25.1-36.5) Seconds pCO2 (35-45) mm/Hg pO2 (80-100) mm/Hg HCO3 (21-28) mmol/L ABG pH (7.35-7.45) ABG Total CO2 (22-28) mmol.L ABG O2 Saturation (95-98) % ABG Base Excess (-2.0-3.0) mmol/L ABG Potassium (3.6-5.2) mmol/L Sodium 136 (132-148) mmol/L Chloride 101 (98-107) mmol/L Glucose (65-105) mg/dl Lactate (0.7-2.1) mmol/L FiO2 % Potassium 4.1 (3.6-5.0) mmol/L Carbon Dioxide 27 (21-33) mmol/L Anion Gap 12 (10-20) BUN 15 (7-21) mg/dL Creatinine 0.9 (0.7-1.2) mg/dl Est GFR ( Amer) > 60 Est GFR (Non-Af Amer) > 60 Random Glucose 103 (70-110) mg/dL Calcium 8.2 L (8.4-10.5) mg/dL Phosphorus (2.5-4.5) mg/dL Magnesium (1.7-2.2) mg/dL Total Bilirubin 0.5 (0.2-1.3) mg/dL AST 47 H D (14-36) U/L ALT 57 H (7-56) U/L Alkaline Phosphatase 144 H D (38-126) U/L Lactate Dehydrogenase 1017 H (333-699) U/L Total Creatine Kinase 134 (35-230) U/L Troponin I 2.77 H* D ng/mL NT-Pro-B Natriuret Pep 1360 H (0-450) pg/mL Total Protein 6.8 (5.8-8.3) g/dL Albumin 3.0 (3.0-4.8) g/dL Globulin 3.8 gm/dL Albumin/Globulin Ratio 0.8 L (1.1-1.8) TSH 3rd Generation (0.46-4.68) mIU/mL Arterial Blood Potassium (3.6-5.2) mmol/L Urine Color (YELLOW) Urine Appearance (CLEAR) Urine pH (4.7-8.0) Ur Specific [place] (1.005-1.035) Urine Protein (<30 mg/dL) mg/dL Urine Glucose (UA) (NEGATIVE) mg/dL Urine Ketones (NEGATIVE) mg/dL Urine Blood (NEGATIVE) Urine Nitrate (NEGATIVE) Urine Bilirubin (NEGATIVE) Urine Urobilinogen (<1 E.U./dL) E.U./dL Ur Leukocyte Esterase (NEGATIVE) Kerrie/uL Influenza Typ A,B (EIA) (NEGATIVE) 06/28/18 Range/Units 01:55 WBC (4.5-11.0) 10^3/uL RBC (3.5-6.1) 10^6/uL Hgb (12.0-16.0) g/dL Hct (36.0-48.0) % MCV (80.0-105.0) fl MCH (25.0-35.0) pg MCHC (31.0-37.0) g/dl RDW (11.5-14.5) % Plt Count (120.0-450.0) 10^3/uL MPV (7.0-11.0) fl Gran % (50.0-68.0) % Lymph % (Auto) (22.0-35.0) % [place] % (Auto) (1.0-6.0) % Eos % (Auto) (1.5-5.0) % Baso % (Auto) (0.0-3.0) % Gran # (1.4-6.5) Lymph # (Auto) (1.2-3.4) [place] # (Auto) (0.1-0.6) Eos # (Auto) (0.0-0.7) Baso # (Auto) (0.0-2.0) K/mm3 Neutrophils % (Manual) (50.0-70.0) % Band Neutrophils % (0-2) % Lymphocytes % (Manual) (22.0-35.0) % Monocytes % (Manual) (1.0-6.0) % Toxic Granulation Platelet Evaluation (NORMAL) Polychromasia Hypochromasia Poikilocytosis (manual Anisocytosis (manual) Spherocytes PT (9.4-12.5) SECONDS INR APTT (25.1-36.5) Seconds pCO2 43 (35-45) mm/Hg pO2 102.0 H (80-100) mm/Hg HCO3 27.3 (21-28) mmol/L ABG pH 7.41 (7.35-7.45) ABG Total CO2 28.6 H (22-28) mmol.L ABG O2 Saturation 94.9 L (95-98) % ABG Base Excess 2.2 (-2.0-3.0) mmol/L ABG Potassium 3.3 L (3.6-5.2) mmol/L Sodium 137.0 (132-148) mmol/L Chloride 103.0 (98-107) mmol/L Glucose 130 H (65-105) mg/dl Lactate 0.9 (0.7-2.1) mmol/L FiO2 100.0 % Potassium (3.6-5.0) mmol/L Carbon Dioxide (21-33) mmol/L Anion Gap (10-20) BUN (7-21) mg/dL Creatinine (0.7-1.2) mg/dl Est GFR ( Amer) Est GFR (Non-Af Amer) Random Glucose (70-110) mg/dL Calcium (8.4-10.5) mg/dL Phosphorus (2.5-4.5) mg/dL Magnesium (1.7-2.2) mg/dL Total Bilirubin (0.2-1.3) mg/dL AST (14-36) U/L ALT (7-56) U/L Alkaline Phosphatase (38-126) U/L Lactate Dehydrogenase (333-699) U/L Total Creatine Kinase (35-230) U/L Troponin I ng/mL NT-Pro-B Natriuret Pep (0-450) pg/mL Total Protein (5.8-8.3) g/dL Albumin (3.0-4.8) g/dL Globulin gm/dL Albumin/Globulin Ratio (1.1-1.8) TSH 3rd Generation (0.46-4.68) mIU/mL Arterial Blood Potassium 3.3 L (3.6-5.2) mmol/L Urine Color (YELLOW) Urine Appearance (CLEAR) Urine pH (4.7-8.0) Ur Specific [place] (1.005-1.035) Urine Protein (<30 mg/dL) mg/dL Urine Glucose (UA) (NEGATIVE) mg/dL Urine Ketones (NEGATIVE) mg/dL Urine Blood (NEGATIVE) Urine Nitrate (NEGATIVE) Urine Bilirubin (NEGATIVE) Urine Urobilinogen (<1 E.U./dL) E.U./dL Ur Leukocyte Esterase (NEGATIVE) Kerrie/uL Influenza Typ A,B (EIA) (NEGATIVE) Laboratory Results - last 24 hr 06/28/18 06/28/18 06/28/18 01:55 20:00 20:00 WBC RBC Hgb Hct MCV MCH MCHC RDW Plt Count MPV Gran % Lymph % (Auto) [place] % (Auto) Eos % (Auto) Baso % (Auto) Gran # Lymph # (Auto) [place] # (Auto) Eos # (Auto) Baso # (Auto) Neutrophils % (Manual) Band Neutrophils % Lymphocytes % (Manual) Monocytes % (Manual) Toxic Granulation Platelet Evaluation Polychromasia Hypochromasia Poikilocytosis (manual Anisocytosis (manual) Spherocytes PT 16.7 H INR 1.45 APTT 25.3 pCO2 43 pO2 102.0 H HCO3 27.3 ABG pH 7.41 ABG Total CO2 28.6 H ABG O2 Saturation 94.9 L ABG Base Excess 2.2 ABG Potassium 3.3 L Sodium 137.0 136 Chloride 103.0 101 Glucose 130 H Lactate 0.9 FiO2 100.0 Potassium 4.1 Carbon Dioxide 27 Anion Gap 12 BUN 15 Creatinine 0.9 Est GFR ( Amer) > 60 Est GFR (Non-Af Amer) > 60 Random Glucose 103 Calcium 8.2 L Phosphorus Magnesium Total Bilirubin 0.5 AST 47 H D ALT 57 H Alkaline Phosphatase 144 H D Lactate Dehydrogenase 1017 H Total Creatine Kinase 134 Troponin I 2.77 H* D NT-Pro-B Natriuret Pep 1360 H Total Protein 6.8 Albumin 3.0 Globulin 3.8 Albumin/Globulin Ratio 0.8 L TSH 3rd Generation Arterial Blood Potassium 3.3 L Urine Color Urine Appearance Urine pH Ur Specific [place] Urine Protein Urine Glucose (UA) Urine Ketones Urine Blood Urine Nitrate Urine Bilirubin Urine Urobilinogen Ur Leukocyte Esterase Influenza Typ A,B (EIA) 06/28/18 06/29/18 06/29/18 20:00 00:35 02:45 WBC 14.5 H 18.4 H D RBC 4.73 4.76 Hgb 9.8 L 9.7 L Hct 32.2 L 32.5 L MCV 68.1 L 68.3 L MCH 20.7 L 20.4 L MCHC 30.4 L 29.8 L RDW 18.5 H 18.3 H Plt Count 686 H 665 H MPV 8.8 9.0 Gran % 91.7 H Lymph % (Auto) 3.5 L [place] % (Auto) 4.6 Eos % (Auto) 0.1 L Baso % (Auto) 0.1 Gran # 16.89 H Lymph # (Auto) 0.6 L [place] # (Auto) 0.8 H Eos # (Auto) 0.0 Baso # (Auto) 0.01 Neutrophils % (Manual) 90 H Band Neutrophils % 2 Lymphocytes % (Manual) 4 L Monocytes % (Manual) 4 Toxic Granulation Slight Platelet Evaluation High Polychromasia Slight Hypochromasia 1+ Poikilocytosis (manual Slight Anisocytosis (manual) Slight Spherocytes Slight PT INR APTT pCO2 pO2 HCO3 ABG pH ABG Total CO2 ABG O2 Saturation ABG Base Excess ABG Potassium Sodium Chloride Glucose Lactate FiO2 Potassium Carbon Dioxide Anion Gap BUN Creatinine Est GFR ( Amer) Est GFR (Non-Af Amer) Random Glucose Calcium Phosphorus Magnesium Total Bilirubin AST ALT Alkaline Phosphatase Lactate Dehydrogenase Total Creatine Kinase Troponin I NT-Pro-B Natriuret Pep Total Protein Albumin Globulin Albumin/Globulin Ratio TSH 3rd Generation Arterial Blood Potassium Urine Color Urine Appearance Urine pH Ur Specific [place] Urine Protein Urine Glucose (UA) Urine Ketones Urine Blood Urine Nitrate Urine Bilirubin Urine Urobilinogen Ur Leukocyte Esterase Influenza Typ A,B (EIA) Negative for flu a/b 06/29/18 06/29/18 06/29/18 02:45 02:45 06:00 WBC RBC Hgb Hct MCV MCH MCHC RDW Plt Count MPV Gran % Lymph % (Auto) [place] % (Auto) Eos % (Auto) Baso % (Auto) Gran # Lymph # (Auto) [place] # (Auto) Eos # (Auto) Baso # (Auto) Neutrophils % (Manual) Band Neutrophils % Lymphocytes % (Manual) Monocytes % (Manual) Toxic Granulation Platelet Evaluation Polychromasia Hypochromasia Poikilocytosis (manual Anisocytosis (manual) Spherocytes PT INR APTT pCO2 pO2 HCO3 ABG pH ABG Total CO2 ABG O2 Saturation ABG Base Excess ABG Potassium Sodium 137 Chloride 102 Glucose Lactate FiO2 Potassium 3.9 Carbon Dioxide 27 Anion Gap 12 BUN 14 Creatinine 0.9 Est GFR ( Amer) > 60 Est GFR (Non-Af Amer) > 60 Random Glucose 141 H Calcium 8.0 L Phosphorus Magnesium Total Bilirubin AST ALT Alkaline Phosphatase Lactate Dehydrogenase Total Creatine Kinase Troponin I 1.87 H* D NT-Pro-B Natriuret Pep Total Protein Albumin Globulin Albumin/Globulin Ratio TSH 3rd Generation 0.03 L Arterial Blood Potassium Urine Color Yellow Urine Appearance Clear Urine pH 6.0 Ur Specific [place] <= 1.005 Urine Protein Negative Urine Glucose (UA) Negative Urine Ketones Negative Urine Blood Negative Urine Nitrate Negative Urine Bilirubin Negative Urine Urobilinogen 0.2 Ur Leukocyte Esterase Negative Influenza Typ A,B (EIA) 06/29/18 07:30 WBC RBC Hgb Hct MCV MCH MCHC RDW Plt Count MPV Gran % Lymph % (Auto) [place] % (Auto) Eos % (Auto) Baso % (Auto) Gran # Lymph # (Auto) [place] # (Auto) Eos # (Auto) Baso # (Auto) Neutrophils % (Manual) Band Neutrophils % Lymphocytes % (Manual) Monocytes % (Manual) Toxic Granulation Platelet Evaluation Polychromasia Hypochromasia Poikilocytosis (manual Anisocytosis (manual) Spherocytes PT INR APTT pCO2 pO2 HCO3 ABG pH ABG Total CO2 ABG O2 Saturation ABG Base Excess ABG Potassium Sodium 138 Chloride 103 Glucose Lactate FiO2 Potassium 3.9 Carbon Dioxide 26 Anion Gap 12 BUN 15 Creatinine 1.0 Est GFR ( Amer) > 60 Est GFR (Non-Af Amer) 55 Random Glucose 181 H Calcium 7.9 L Phosphorus 5.8 H Magnesium 1.9 Total Bilirubin 0.6 AST 38 H ALT 54 Alkaline Phosphatase 154 H Lactate Dehydrogenase Total Creatine Kinase Troponin I 1.25 H* D NT-Pro-B Natriuret Pep Total Protein 6.9 Albumin 3.1 Globulin 3.8 Albumin/Globulin Ratio 0.8 L TSH 3rd Generation Arterial Blood Potassium Urine Color Urine Appearance Urine pH Ur Specific [place] Urine Protein Urine Glucose (UA) Urine Ketones Urine Blood Urine Nitrate Urine Bilirubin Urine Urobilinogen Ur Leukocyte Esterase Influenza Typ A,B (EIA) EKG/Cardiology Studies: Cardiology / EKG Studies 06/29/18 07:11 ELECTROCARDIOGRAM Routine Comment: Reason For Exam: SOB, + trops Review of Systems - Review of Systems Review of Systems: per HPI Critical Care Progress Note - Nutrition Nutrition: Nutrition Category Date Time Status Heart Healthy Diet [DIET] Diets 06/28/18 Breakfast Active Assessment/Plan - Assessment and Plan (Free Text) Assessment: 68 yo F with PMH of right upper lobe NSCLC (on xalkori), colon CA (s/p resection), COPD, hypothyroidism, OA, and Fe-deficiency anemia is admitted to MICU for worsening respiratory status, NSTEMI Plan: Neuro: AAOx3, no FND, moving extremities past midline Monitor neuro status Reorient patient as necessary Cardio: Troponin downtrending cardiology following Continue therapeutic lovenox, aspirin Elevated Troponin/BNP, peripheral edema may be 2/2 acute R-sided HF worsening tumor burden TTE last month showed EF of 59%. F/u echo CTA negative for PE but shows increased size of R hilar mass and worsening hilar lymphadenopathy c/w increasing metastatic disease Cardiology consulted, recs appreciated Pulm: SpO2 of 96% on non-rebreather mask B/l basilar edema noted on CXR and chest CT May be 2/2 acute R-sided HF from PE and/or worsening tumor burden duoneb aformoterol budesonide daily chest xrays per pulm recs Currently on doxy, merropenem per ID recs. Maintain SpO2 > 95% GI: Tolerating diet well without abd pain/nausea/vomiting Protonix for PPX /Nephro: BUN/Cr stable F/u UA, UCx results Replete electrolytes as needed Maintain euvolemia Endocrinology: Maintain euglycemia. Heme/Onc: H/H stable Microcytic anemia likely 2/2 iron deficiency and/or anemia of chronic disease Continue monitoring H/H CT chest shows increase in size of R hilar mass with worsening compression of R mainstem bronchus and increase in R mediastinal and hilar lymph nodes c/w worsening metastatic disease Currently on xalkori monotherapy for lung CA Further recs per Dr. Adames ID: Afebrile B/l LL infiltrates on CXR/CT may represent underlying PNA vs edema from HF exacerbation Follow up BCx, UCx, Procalcitonin, Lactate Monitor for signs and symptoms of infection DVT/GI PPX: Therapeutic lovenox for NSTEMI Full Code Diet: HHD Dispo: Pt is comfortable in bed, breathing comfortable on NC, saturating in the 90%s. She is hemodynamically stable. Case and plan reviewed and discussed with my attending Dr. Denise <Darrius Denise - Last Filed: 06/29/18 19:10> CCU Objective - Vital Signs / Intake & Output Vital Signs (Last 4 hours): Vital Signs Temp Pulse Resp BP 06/29/18 18:00 61 06/29/18 17:57 97.5 F L 56 L 18 96/57 L 06/29/18 16:00 60 Intake and Output (Last 8hrs): Intake & Output 06/29/18 06/29/18 06/29/18 06:59 14:59 22:59 Intake Total 1230 Output Total 500 Balance 730 Weight 111.272 kg Intake: IV 450 Left Antecubital 450 Oral 780 Output: Urine 0 Urine, Voided 0 Stool 500 Other: Voiding Method Bedside Commode # Bowel Movements 0 - Medications Active Medications: Active Medications Generic Name Dose Route Start Last Admin Trade Name Freq PRN Reason Stop Dose Admin Albuterol/Ipratropium 3 ml 06/29/18 14:00 06/29/18 13:08 Duoneb 3 Mg/0.5 Mg (3 Ml) Ud IH 3 ml [id number] JOHN Administration Albuterol/Ipratropium 3 ml 06/29/18 08:23 Duoneb 3 Mg/0.5 Mg (3 Ml) Ud IH Q2H PRN Shortness of Breath Arformoterol Tartrate 15 mcg 06/29/18 08:00 06/29/18 07:29 Brovana IH 15 mcg [id number] JOHN Administration Aspirin 81 mg 06/29/18 10:00 06/29/18 11:08 Aspirin Chewable PO 81 mg DAILY JOHN Administration Atorvastatin Calcium 40 mg 06/29/18 10:00 06/29/18 11:09 Lipitor PO 40 mg DAILY JOHN Administration Budesonide 0.5 mg 06/29/18 08:00 06/29/18 07:30 Pulmicort Respules IH 0.5 mg [id number] JOHN Administration Doxycycline Hyclate 100 mg 06/29/18 10:45 06/29/18 11:08 Doryx PO 100 mg Q12 JOHN Administration Protocol Enoxaparin Sodium 110 mg 06/29/18 10:00 06/29/18 11:08 Lovenox SC 110 mg Q12H JOHN Administration Protocol Furosemide 20 mg 06/29/18 10:00 06/29/18 11:09 Lasix IVP 20 mg Q12 JOHN Administration Vancomycin HCl 1 gm in 250 mls @ 167 mls/hr 06/29/18 11:00 06/29/18 11:07 Vancomycin 1gm IVPB 167 mls/hr Q12H JOHN Administration Protocol Meropenem 1 gm in 50 mls @ 100 mls/hr 06/29/18 07:03 06/29/18 14:01 Merrem Iv 1 Gm Premix IVPB 07/08/18 07:04 100 mls/hr Q8 JOHN Administration Protocol Levothyroxine Sodium 125 mcg 06/29/18 06:00 06/29/18 05:36 Synthroid PO 125 mcg 0600 JOHN Administration Methylprednisolone 40 mg 06/29/18 06:00 06/29/18 14:01 Solu-Medrol IVP 40 mg Q8H JOHN Administration Ondansetron HCl 4 mg 06/29/18 02:47 Zofran Inj IVP Q4H PRN Nausea/Vomiting - Patient Studies Lab Studies: Lab Studies 06/29/18 06/29/18 06/29/18 Range/Units 14:20 07:30 06:00 WBC (4.5-11.0) 10^3/uL RBC (3.5-6.1) 10^6/uL Hgb (12.0-16.0) g/dL Hct (36.0-48.0) % MCV (80.0-105.0) fl MCH (25.0-35.0) pg MCHC (31.0-37.0) g/dl RDW (11.5-14.5) % Plt Count (120.0-450.0) 10^3/uL MPV (7.0-11.0) fl Gran % (50.0-68.0) % Lymph % (Auto) (22.0-35.0) % [place] % (Auto) (1.0-6.0) % Eos % (Auto) (1.5-5.0) % Baso % (Auto) (0.0-3.0) % Gran # (1.4-6.5) Lymph # (Auto) (1.2-3.4) [place] # (Auto) (0.1-0.6) Eos # (Auto) (0.0-0.7) Baso # (Auto) (0.0-2.0) K/mm3 Neutrophils % (Manual) (50.0-70.0) % Band Neutrophils % (0-2) % Lymphocytes % (Manual) (22.0-35.0) % Monocytes % (Manual) (1.0-6.0) % Toxic Granulation Platelet Evaluation (NORMAL) Polychromasia Hypochromasia Poikilocytosis (manual Anisocytosis (manual) Spherocytes PT (9.4-12.5) SECONDS INR APTT (25.1-36.5) Seconds pCO2 (35-45) mm/Hg pO2 (80-100) mm/Hg HCO3 (21-28) mmol/L ABG pH (7.35-7.45) ABG Total CO2 (22-28) mmol.L ABG O2 Saturation (95-98) % ABG Base Excess (-2.0-3.0) mmol/L ABG Potassium (3.6-5.2) mmol/L Sodium 138 (132-148) mmol/L Chloride 103 (98-107) mmol/L Glucose (65-105) mg/dl Lactate (0.7-2.1) mmol/L FiO2 % Potassium 3.9 (3.6-5.0) mmol/L Carbon Dioxide 26 (21-33) mmol/L Anion Gap 12 (10-20) BUN 15 (7-21) mg/dL Creatinine 1.0 (0.7-1.2) mg/dl Est GFR ( Amer) > 60 Est GFR (Non-Af Amer) 55 Random Glucose 181 H (70-110) mg/dL Calcium 7.9 L (8.4-10.5) mg/dL Phosphorus 5.8 H (2.5-4.5) mg/dL Magnesium 1.9 (1.7-2.2) mg/dL Total Bilirubin 0.6 (0.2-1.3) mg/dL AST 38 H (14-36) U/L ALT 54 (7-56) U/L Alkaline Phosphatase 154 H (38-126) U/L Lactate Dehydrogenase (333-699) U/L Total Creatine Kinase (35-230) U/L Troponin I 1.00 H* 1.25 H* D ng/mL NT-Pro-B Natriuret Pep (0-450) pg/mL Total Protein 6.9 (5.8-8.3) g/dL Albumin 3.1 (3.0-4.8) g/dL Globulin 3.8 gm/dL Albumin/Globulin Ratio 0.8 L (1.1-1.8) TSH 3rd Generation (0.46-4.68) mIU/mL Arterial Blood Potassium (3.6-5.2) mmol/L Urine Color Yellow (YELLOW) Urine Appearance Clear (CLEAR) Urine pH 6.0 (4.7-8.0) Ur Specific [place] <= 1.005 (1.005-1.035) Urine Protein Negative (<30 mg/dL) mg/dL Urine Glucose (UA) Negative (NEGATIVE) mg/dL Urine Ketones Negative (NEGATIVE) mg/dL Urine Blood Negative (NEGATIVE) Urine Nitrate Negative (NEGATIVE) Urine Bilirubin Negative (NEGATIVE) Urine Urobilinogen 0.2 (<1 E.U./dL) E.U./dL Ur Leukocyte Esterase Negative (NEGATIVE) Kerrie/uL Influenza Typ A,B (EIA) (NEGATIVE) 06/29/18 06/29/18 06/29/18 Range/Units 02:45 02:45 02:45 WBC 18.4 H D (4.5-11.0) 10^3/uL RBC 4.76 (3.5-6.1) 10^6/uL Hgb 9.7 L (12.0-16.0) g/dL Hct 32.5 L (36.0-48.0) % MCV 68.3 L (80.0-105.0) fl MCH 20.4 L (25.0-35.0) pg MCHC 29.8 L (31.0-37.0) g/dl RDW 18.3 H (11.5-14.5) % Plt Count 665 H (120.0-450.0) 10^3/uL MPV 9.0 (7.0-11.0) fl Gran % 91.7 H (50.0-68.0) % Lymph % (Auto) 3.5 L (22.0-35.0) % [place] % (Auto) 4.6 (1.0-6.0) % Eos % (Auto) 0.1 L (1.5-5.0) % Baso % (Auto) 0.1 (0.0-3.0) % Gran # 16.89 H (1.4-6.5) Lymph # (Auto) 0.6 L (1.2-3.4) [place] # (Auto) 0.8 H (0.1-0.6) Eos # (Auto) 0.0 (0.0-0.7) Baso # (Auto) 0.01 (0.0-2.0) K/mm3 Neutrophils % (Manual) 90 H (50.0-70.0) % Band Neutrophils % 2 (0-2) % Lymphocytes % (Manual) 4 L (22.0-35.0) % Monocytes % (Manual) 4 (1.0-6.0) % Toxic Granulation Slight Platelet Evaluation High (NORMAL) Polychromasia Slight Hypochromasia 1+ Poikilocytosis (manual Slight Anisocytosis (manual) Slight Spherocytes Slight PT (9.4-12.5) SECONDS INR APTT (25.1-36.5) Seconds pCO2 (35-45) mm/Hg pO2 (80-100) mm/Hg HCO3 (21-28) mmol/L ABG pH (7.35-7.45) ABG Total CO2 (22-28) mmol.L ABG O2 Saturation (95-98) % ABG Base Excess (-2.0-3.0) mmol/L ABG Potassium (3.6-5.2) mmol/L Sodium 137 (132-148) mmol/L Chloride 102 (98-107) mmol/L Glucose (65-105) mg/dl Lactate (0.7-2.1) mmol/L FiO2 % Potassium 3.9 (3.6-5.0) mmol/L Carbon Dioxide 27 (21-33) mmol/L Anion Gap 12 (10-20) BUN 14 (7-21) mg/dL Creatinine 0.9 (0.7-1.2) mg/dl Est GFR ( Amer) > 60 Est GFR (Non-Af Amer) > 60 Random Glucose 141 H (70-110) mg/dL Calcium 8.0 L (8.4-10.5) mg/dL Phosphorus (2.5-4.5) mg/dL Magnesium (1.7-2.2) mg/dL Total Bilirubin (0.2-1.3) mg/dL AST (14-36) U/L ALT (7-56) U/L Alkaline Phosphatase (38-126) U/L Lactate Dehydrogenase (333-699) U/L Total Creatine Kinase (35-230) U/L Troponin I 1.87 H* D ng/mL NT-Pro-B Natriuret Pep (0-450) pg/mL Total Protein (5.8-8.3) g/dL Albumin (3.0-4.8) g/dL Globulin gm/dL Albumin/Globulin Ratio (1.1-1.8) TSH 3rd Generation 0.03 L (0.46-4.68) mIU/mL Arterial Blood Potassium (3.6-5.2) mmol/L Urine Color (YELLOW) Urine Appearance (CLEAR) Urine pH (4.7-8.0) Ur Specific [place] (1.005-1.035) Urine Protein (<30 mg/dL) mg/dL Urine Glucose (UA) (NEGATIVE) mg/dL Urine Ketones (NEGATIVE) mg/dL Urine Blood (NEGATIVE) Urine Nitrate (NEGATIVE) Urine Bilirubin (NEGATIVE) Urine Urobilinogen (<1 E.U./dL) E.U./dL Ur Leukocyte Esterase (NEGATIVE) Kerrie/uL Influenza Typ A,B (EIA) (NEGATIVE) 06/29/18 06/28/18 06/28/18 Range/Units 00:35 20:00 20:00 WBC 14.5 H (4.5-11.0) 10^3/uL RBC 4.73 (3.5-6.1) 10^6/uL Hgb 9.8 L (12.0-16.0) g/dL Hct 32.2 L (36.0-48.0) % MCV 68.1 L (80.0-105.0) fl MCH 20.7 L (25.0-35.0) pg MCHC 30.4 L (31.0-37.0) g/dl RDW 18.5 H (11.5-14.5) % Plt Count 686 H (120.0-450.0) 10^3/uL MPV 8.8 (7.0-11.0) fl Gran % (50.0-68.0) % Lymph % (Auto) (22.0-35.0) % [place] % (Auto) (1.0-6.0) % Eos % (Auto) (1.5-5.0) % Baso % (Auto) (0.0-3.0) % Gran # (1.4-6.5) Lymph # (Auto) (1.2-3.4) [place] # (Auto) (0.1-0.6) Eos # (Auto) (0.0-0.7) Baso # (Auto) (0.0-2.0) K/mm3 Neutrophils % (Manual) (50.0-70.0) % Band Neutrophils % (0-2) % Lymphocytes % (Manual) (22.0-35.0) % Monocytes % (Manual) (1.0-6.0) % Toxic Granulation Platelet Evaluation (NORMAL) Polychromasia Hypochromasia Poikilocytosis (manual Anisocytosis (manual) Spherocytes PT (9.4-12.5) SECONDS INR APTT (25.1-36.5) Seconds pCO2 (35-45) mm/Hg pO2 (80-100) mm/Hg HCO3 (21-28) mmol/L ABG pH (7.35-7.45) ABG Total CO2 (22-28) mmol.L ABG O2 Saturation (95-98) % ABG Base Excess (-2.0-3.0) mmol/L ABG Potassium (3.6-5.2) mmol/L Sodium 136 (132-148) mmol/L Chloride 101 (98-107) mmol/L Glucose (65-105) mg/dl Lactate (0.7-2.1) mmol/L FiO2 % Potassium 4.1 (3.6-5.0) mmol/L Carbon Dioxide 27 (21-33) mmol/L Anion Gap 12 (10-20) BUN 15 (7-21) mg/dL Creatinine 0.9 (0.7-1.2) mg/dl Est GFR ( Amer) > 60 Est GFR (Non-Af Amer) > 60 Random Glucose 103 (70-110) mg/dL Calcium 8.2 L (8.4-10.5) mg/dL Phosphorus (2.5-4.5) mg/dL Magnesium (1.7-2.2) mg/dL Total Bilirubin 0.5 (0.2-1.3) mg/dL AST 47 H D (14-36) U/L ALT 57 H (7-56) U/L Alkaline Phosphatase 144 H D (38-126) U/L Lactate Dehydrogenase 1017 H (333-699) U/L Total Creatine Kinase 134 (35-230) U/L Troponin I 2.77 H* D ng/mL NT-Pro-B Natriuret Pep 1360 H (0-450) pg/mL Total Protein 6.8 (5.8-8.3) g/dL Albumin 3.0 (3.0-4.8) g/dL Globulin 3.8 gm/dL Albumin/Globulin Ratio 0.8 L (1.1-1.8) TSH 3rd Generation (0.46-4.68) mIU/mL Arterial Blood Potassium (3.6-5.2) mmol/L Urine Color (YELLOW) Urine Appearance (CLEAR) Urine pH (4.7-8.0) Ur Specific [place] (1.005-1.035) Urine Protein (<30 mg/dL) mg/dL Urine Glucose (UA) (NEGATIVE) mg/dL Urine Ketones (NEGATIVE) mg/dL Urine Blood (NEGATIVE) Urine Nitrate (NEGATIVE) Urine Bilirubin (NEGATIVE) Urine Urobilinogen (<1 E.U./dL) E.U./dL Ur Leukocyte Esterase (NEGATIVE) Kerrie/uL Influenza Typ A,B (EIA) Negative for flu a/b (NEGATIVE) 06/28/18 06/28/18 Range/Units 20:00 01:55 WBC (4.5-11.0) 10^3/uL RBC (3.5-6.1) 10^6/uL Hgb (12.0-16.0) g/dL Hct (36.0-48.0) % MCV (80.0-105.0) fl MCH (25.0-35.0) pg MCHC (31.0-37.0) g/dl RDW (11.5-14.5) % Plt Count (120.0-450.0) 10^3/uL MPV (7.0-11.0) fl Gran % (50.0-68.0) % Lymph % (Auto) (22.0-35.0) % [place] % (Auto) (1.0-6.0) % Eos % (Auto) (1.5-5.0) % Baso % (Auto) (0.0-3.0) % Gran # (1.4-6.5) Lymph # (Auto) (1.2-3.4) [place] # (Auto) (0.1-0.6) Eos # (Auto) (0.0-0.7) Baso # (Auto) (0.0-2.0) K/mm3 Neutrophils % (Manual) (50.0-70.0) % Band Neutrophils % (0-2) % Lymphocytes % (Manual) (22.0-35.0) % Monocytes % (Manual) (1.0-6.0) % Toxic Granulation Platelet Evaluation (NORMAL) Polychromasia Hypochromasia Poikilocytosis (manual Anisocytosis (manual) Spherocytes PT 16.7 H (9.4-12.5) SECONDS INR 1.45 APTT 25.3 (25.1-36.5) Seconds pCO2 43 (35-45) mm/Hg pO2 102.0 H (80-100) mm/Hg HCO3 27.3 (21-28) mmol/L ABG pH 7.41 (7.35-7.45) ABG Total CO2 28.6 H (22-28) mmol.L ABG O2 Saturation 94.9 L (95-98) % ABG Base Excess 2.2 (-2.0-3.0) mmol/L ABG Potassium 3.3 L (3.6-5.2) mmol/L Sodium 137.0 (132-148) mmol/L Chloride 103.0 (98-107) mmol/L Glucose 130 H (65-105) mg/dl Lactate 0.9 (0.7-2.1) mmol/L FiO2 100.0 % Potassium (3.6-5.0) mmol/L Carbon Dioxide (21-33) mmol/L Anion Gap (10-20) BUN (7-21) mg/dL Creatinine (0.7-1.2) mg/dl Est GFR ( Amer) Est GFR (Non-Af Amer) Random Glucose (70-110) mg/dL Calcium (8.4-10.5) mg/dL Phosphorus (2.5-4.5) mg/dL Magnesium (1.7-2.2) mg/dL Total Bilirubin (0.2-1.3) mg/dL AST (14-36) U/L ALT (7-56) U/L Alkaline Phosphatase (38-126) U/L Lactate Dehydrogenase (333-699) U/L Total Creatine Kinase (35-230) U/L Troponin I ng/mL NT-Pro-B Natriuret Pep (0-450) pg/mL Total Protein (5.8-8.3) g/dL Albumin (3.0-4.8) g/dL Globulin gm/dL Albumin/Globulin Ratio (1.1-1.8) TSH 3rd Generation (0.46-4.68) mIU/mL Arterial Blood Potassium 3.3 L (3.6-5.2) mmol/L Urine Color (YELLOW) Urine Appearance (CLEAR) Urine pH (4.7-8.0) Ur Specific [place] (1.005-1.035) Urine Protein (<30 mg/dL) mg/dL Urine Glucose (UA) (NEGATIVE) mg/dL Urine Ketones (NEGATIVE) mg/dL Urine Blood (NEGATIVE) Urine Nitrate (NEGATIVE) Urine Bilirubin (NEGATIVE) Urine Urobilinogen (<1 E.U./dL) E.U./dL Ur Leukocyte Esterase (NEGATIVE) Kerrie/uL Influenza Typ A,B (EIA) (NEGATIVE) Laboratory Results - last 24 hr 06/28/18 06/28/18 06/28/18 01:55 20:00 20:00 WBC RBC Hgb Hct MCV MCH MCHC RDW Plt Count MPV Gran % Lymph % (Auto) [place] % (Auto) Eos % (Auto) Baso % (Auto) Gran # Lymph # (Auto) [place] # (Auto) Eos # (Auto) Baso # (Auto) Neutrophils % (Manual) Band Neutrophils % Lymphocytes % (Manual) Monocytes % (Manual) Toxic Granulation Platelet Evaluation Polychromasia Hypochromasia Poikilocytosis (manual Anisocytosis (manual) Spherocytes PT 16.7 H INR 1.45 APTT 25.3 pCO2 43 pO2 102.0 H HCO3 27.3 ABG pH 7.41 ABG Total CO2 28.6 H ABG O2 Saturation 94.9 L ABG Base Excess 2.2 ABG Potassium 3.3 L Sodium 137.0 136 Chloride 103.0 101 Glucose 130 H Lactate 0.9 FiO2 100.0 Potassium 4.1 Carbon Dioxide 27 Anion Gap 12 BUN 15 Creatinine 0.9 Est GFR ( Amer) > 60 Est GFR (Non-Af Amer) > 60 Random Glucose 103 Calcium 8.2 L Phosphorus Magnesium Total Bilirubin 0.5 AST 47 H D ALT 57 H Alkaline Phosphatase 144 H D Lactate Dehydrogenase 1017 H Total Creatine Kinase 134 Troponin I 2.77 H* D NT-Pro-B Natriuret Pep 1360 H Total Protein 6.8 Albumin 3.0 Globulin 3.8 Albumin/Globulin Ratio 0.8 L TSH 3rd Generation Arterial Blood Potassium 3.3 L Urine Color Urine Appearance Urine pH Ur Specific [place] Urine Protein Urine Glucose (UA) Urine Ketones Urine Blood Urine Nitrate Urine Bilirubin Urine Urobilinogen Ur Leukocyte Esterase Influenza Typ A,B (EIA) 06/28/18 06/29/18 06/29/18 20:00 00:35 02:45 WBC 14.5 H 18.4 H D RBC 4.73 4.76 Hgb 9.8 L 9.7 L Hct 32.2 L 32.5 L MCV 68.1 L 68.3 L MCH 20.7 L 20.4 L MCHC 30.4 L 29.8 L RDW 18.5 H 18.3 H Plt Count 686 H 665 H MPV 8.8 9.0 Gran % 91.7 H Lymph % (Auto) 3.5 L [place] % (Auto) 4.6 Eos % (Auto) 0.1 L Baso % (Auto) 0.1 Gran # 16.89 H Lymph # (Auto) 0.6 L [place] # (Auto) 0.8 H Eos # (Auto) 0.0 Baso # (Auto) 0.01 Neutrophils % (Manual) 90 H Band Neutrophils % 2 Lymphocytes % (Manual) 4 L Monocytes % (Manual) 4 Toxic Granulation Slight Platelet Evaluation High Polychromasia Slight Hypochromasia 1+ Poikilocytosis (manual Slight Anisocytosis (manual) Slight Spherocytes Slight PT INR APTT pCO2 pO2 HCO3 ABG pH ABG Total CO2 ABG O2 Saturation ABG Base Excess ABG Potassium Sodium Chloride Glucose Lactate FiO2 Potassium Carbon Dioxide Anion Gap BUN Creatinine Est GFR ( Amer) Est GFR (Non-Af Amer) Random Glucose Calcium Phosphorus Magnesium Total Bilirubin AST ALT Alkaline Phosphatase Lactate Dehydrogenase Total Creatine Kinase Troponin I NT-Pro-B Natriuret Pep Total Protein Albumin Globulin Albumin/Globulin Ratio TSH 3rd Generation Arterial Blood Potassium Urine Color Urine Appearance Urine pH Ur Specific [place] Urine Protein Urine Glucose (UA) Urine Ketones Urine Blood Urine Nitrate Urine Bilirubin Urine Urobilinogen Ur Leukocyte Esterase Influenza Typ A,B (EIA) Negative for flu a/b 06/29/18 06/29/18 06/29/18 02:45 02:45 06:00 WBC RBC Hgb Hct MCV MCH MCHC RDW Plt Count MPV Gran % Lymph % (Auto) [place] % (Auto) Eos % (Auto) Baso % (Auto) Gran # Lymph # (Auto) [place] # (Auto) Eos # (Auto) Baso # (Auto) Neutrophils % (Manual) Band Neutrophils % Lymphocytes % (Manual) Monocytes % (Manual) Toxic Granulation Platelet Evaluation Polychromasia Hypochromasia Poikilocytosis (manual Anisocytosis (manual) Spherocytes PT INR APTT pCO2 pO2 HCO3 ABG pH ABG Total CO2 ABG O2 Saturation ABG Base Excess ABG Potassium Sodium 137 Chloride 102 Glucose Lactate FiO2 Potassium 3.9 Carbon Dioxide 27 Anion Gap 12 BUN 14 Creatinine 0.9 Est GFR ( Amer) > 60 Est GFR (Non-Af Amer) > 60 Random Glucose 141 H Calcium 8.0 L Phosphorus Magnesium Total Bilirubin AST ALT Alkaline Phosphatase Lactate Dehydrogenase Total Creatine Kinase Troponin I 1.87 H* D NT-Pro-B Natriuret Pep Total Protein Albumin Globulin Albumin/Globulin Ratio TSH 3rd Generation 0.03 L Arterial Blood Potassium Urine Color Yellow Urine Appearance Clear Urine pH 6.0 Ur Specific [place] <= 1.005 Urine Protein Negative Urine Glucose (UA) Negative Urine Ketones Negative Urine Blood Negative Urine Nitrate Negative Urine Bilirubin Negative Urine Urobilinogen 0.2 Ur Leukocyte Esterase Negative Influenza Typ A,B (EIA) 06/29/18 06/29/18 07:30 14:20 WBC RBC Hgb Hct MCV MCH MCHC RDW Plt Count MPV Gran % Lymph % (Auto) [place] % (Auto) Eos % (Auto) Baso % (Auto) Gran # Lymph # (Auto) [place] # (Auto) Eos # (Auto) Baso # (Auto) Neutrophils % (Manual) Band Neutrophils % Lymphocytes % (Manual) Monocytes % (Manual) Toxic Granulation Platelet Evaluation Polychromasia Hypochromasia Poikilocytosis (manual Anisocytosis (manual) Spherocytes PT INR APTT pCO2 pO2 HCO3 ABG pH ABG Total CO2 ABG O2 Saturation ABG Base Excess ABG Potassium Sodium 138 Chloride 103 Glucose Lactate FiO2 Potassium 3.9 Carbon Dioxide 26 Anion Gap 12 BUN 15 Creatinine 1.0 Est GFR ( Amer) > 60 Est GFR (Non-Af Amer) 55 Random Glucose 181 H Calcium 7.9 L Phosphorus 5.8 H Magnesium 1.9 Total Bilirubin 0.6 AST 38 H ALT 54 Alkaline Phosphatase 154 H Lactate Dehydrogenase Total Creatine Kinase Troponin I 1.25 H* D 1.00 H* NT-Pro-B Natriuret Pep Total Protein 6.9 Albumin 3.1 Globulin 3.8 Albumin/Globulin Ratio 0.8 L TSH 3rd Generation Arterial Blood Potassium Urine Color Urine Appearance Urine pH Ur Specific [place] Urine Protein Urine Glucose (UA) Urine Ketones Urine Blood Urine Nitrate Urine Bilirubin Urine Urobilinogen Ur Leukocyte Esterase Influenza Typ A,B (EIA) EKG/Cardiology Studies: Cardiology / EKG Studies 06/29/18 07:11 ELECTROCARDIOGRAM Routine Comment: Reason For Exam: SOB, + trops Critical Care Progress Note - Nutrition Nutrition: Nutrition Category Date Time Status Heart Healthy Diet [DIET] Diets 06/28/18 Breakfast Active Addendum Addendum: 06/29/18 19:07 MICU Attending addendum patient seen and examined clay gordon agree with note above with the following add/excepts: 68 yo F with PMH of right upper lobe NSCLC (on xalkori), colon CA (s/p resection), COPD, hypothyroidism, OA, and Fe-deficiency anemia is admitted to MICU for worsening respiratory status, NSTEMI Cardio managing NSTEMI she is is bradycardic with HR 50's so holding BB will likely need cath soon Pulm status much improved, on less oxygen, improved symptoms She is hemodynamically stable for transfer to TELE Darrius Denise MD Pulm/CC/Attending
--- NOTE | 2018-06-29 13:32 | CARD ---
APPROVED REPORT Date of service: 06/29/2018 EKG Measurement Heart [id number] <Conclusion> Atrial fibrillation Prolonged QT Abnormal ECG
--- NOTE | 2018-06-29 13:40 | CARD ---
APPROVED REPORT Date of service: 06/28/2018 EKG Measurement Heart [id number] <Conclusion> Normal sinus rhythm Cannot rule out small or absent R waves V1-V3, may be due to lead placement or possible septal infarct age undetermined. Abnormal ECG
--- NOTE | 2018-06-29 14:13 | CON ---
DATE: 06/29/2018 The patient is seen in the ICU, 128, bed 3. CHIEF COMPLAINT: Shortness of breath x1 to 2 days duration. HISTORY OF PRESENT ILLNESS: This is a 68-year-old female known to me from previous recent admission with a history of stage IV non-small cell lung cancer, right upper lobe; hypothyroidism; colon cancer. The patient is with high cholesterol, cataract, degenerative joint disease, ex-smoker, and anemia, who was admitted with shortness of breath; low grade fevers; cough, nonproductive. No chest pain. She denies any abdominal pain, diarrhea, or constipation. No bright red blood per rectum. No GI symptoms at all. No dysuria or frequency. No headaches or blurred vision. No neck pain. Low grade fevers. REVIEW OF SYSTEMS: A 14-point review of systems is performed. PAST MEDICAL HISTORY: Stage IV non-squamous cell lung cancer, hypothyroidism, colon cancer, high cholesterol, cataracts, degenerative joint disease, and anemia. PAST SURGICAL HISTORY: Significant for polypectomy, colonoscopy, and a colon resection. ALLERGIES: THE PATIENT HAS NO KNOWN ALLERGIES. MEDICATIONS AT HOME: Include inhaler and Protonix and Synthroid. PHYSICAL EXAMINATION: GENERAL: On exam, she is in bed, answers questions appropriately. She is awake and alert, and states she is having shortness of breath. VITAL SIGNS: Temperature of 98, heart rate of 58, respiratory rate of 24 to 26 with 93% O2 saturation, it went down to 88%, and with a blood pressure 150/60. HEENT: Unremarkable. NECK: Supple. LUNGS: Have decreased breath sounds. HEART: Normal S1, S2. ABDOMEN: Soft, nontender. No rebound or guarding. No masses. Examination of the right upper quadrant is completely benign. NEUROLOGIC: The patient is awake and alert. LABORATORY EXAMINATION: Reveals the patient to have a white count of 14,500; hemoglobin of 9; platelets of 686. BUN of 15, creatinine of 0.5, alk phos is elevated at 144. LDH is elevated over 1000. Troponins are elevated and urinalysis is negative. Serology for influenza is negative. Microbiology is pending. Microbiology from previous admission shows the blood cultures are negative. The urine cultures have been negative in the past. IMAGING: The patient had a CAT scan of the chest, which is noted as there is increase in size of the mass, and the chest x-ray showed multifocal pneumonia. CAT scan shows a consolidation in addition to the increase in the mass. The patient had an ultrasound of the extremity, which showed no evidence of DVT. ASSESSMENT AND PLAN: This is a 68-year-old female with severe sepsis with right-sided healthcare-associated pneumonia and a [id number] myocardial infarction. We will treat the patient with vancomycin, meropenem, doxycycline, pending esquivel cultures, blood, urine, sputum, and nasal methicillin-resistant Staphylococcus aureus and procalcitonin, urine for Legionella antigen, and we will make further recommendations. We will follow closely with you. Case discussed with primary care doctor and house staff. Bayron Rooney MD
--- NOTE | 2018-06-30 01:01 | HP ---
DATE OF EXAM: 06/29/2018 This is [facility] admission to the intensive care unit. For Dr. Adames: CHIEF COMPLAINT: Acute myocardial infarction. HISTORY OF PRESENT ILLNESS: The patient is a 68-year-old female with known non-small cell CA of the lung of the right upper lobe, being treated by Dr. Adames, now admitted by the emergency room for shortness of breath after returning on a trip from [place]. The patient reports that she was doing a lot of walking in [place] and this may have contributed to the shortness of breath associated with cough, sore throat, and chills. She is now noted to have abnormal troponin and is in intensive care unit reporting that her symptoms have abated with the patient specifically denying any retrosternal chest pain; however, her weakness and shortness of breath on exertion have also improved. The patient was recently discharged from the hospital after antibiotics were given for suspected early pneumonia/bronchitis. PAST MEDICAL HISTORY: Significant for hypothyroidism, non-small cell CA of the right upper lobe of the lung, anemia status post transfusions, DJD, obesity, and mild dementia. The patient is being treated with Xalkori for her cancer as per Dr. Adames's recommendations. Episode of nonsustained V-tach in 05/2018, history of colon cancer with resection, COPD, history of smoking, cholecystitis, hypothyroidism, GERD. ALLERGIES: NO KNOWN ALLERGIES. MEDICATIONS: The patient's medicine include timolol eyedrops, Protonix, Synthroid, Feosol, and albuterol. FAMILY HISTORY AND SOCIAL HISTORY: Non smoker, non-ethanolic with her daughter and friends at the bedside, otherwise noncontributory. OBJECTIVE AND PHYSICAL EXAMINATION VITAL SIGNS: Temperature 98.6, pulse 58, respirations 23, blood pressure 107/42, and pulse ox 93%. HEENT: Unremarkable. NECK: Supple. HEART: Regular rate. LUNGS: Rare rhonchi. ABDOMEN: Obese, soft, nontender. EXTREMITIES: No edema. SKIN: Warm and dry. NEUROLOGIC: Awake and alert. LABORATORY DATA: The patient's labs were done. On admission, white blood cell count 14.5 yesterday, today 18.4; hemoglobin 9.7 today; hematocrit 32.5; platelet count 665,000. INR 1.45. Her Chem metabolic panel shows a nonfasting glucose of 181 today with a calcium of 7.9, phosphorus of 5.8 with an AST of 38. Her troponin was 2.77 yesterday on admission, 1.87 on repeat, 1.25 this morning with a TSH of 0.03, for which we have held her Synthroid in the past which we will do again now. Urinalysis was negative to blood sugar and protein. Influenza testing was also negative. ABG; pO2 of 102, pH of 7.4. The patient had EKG done yesterday which was read as normal sinus rhythm, cannot rule out small S and R waves in V1 and V3, may be due to lead placement versus possible septal infarct, abnormal EKG. Chest x-ray was done yesterday, was read as potential multifocal pneumonia, right perihilar left distribution with small pleural effusion, borderline right pleural effusion, mild pulmonary vascular congestion. A CAT scan of the chest was done yesterday, was read as CT angiogram, increased size of right hilar lung mass and mediastinal adenopathy, new pleural and pericardial effusions, encasement of the right pulmonary artery, but no evidence of emboli. A Doppler ultrasound was done yesterday of her lower extremity showing no evidence of DVT. A repeat EKG was done today showing atrial fibrillation, prolonged QT, abnormal EKG with an echocardiogram pending. ASSESSMENT: For this patient is that of new subendocardial myocardial infarction with elevated troponin, questionable early pneumonia, non-small cell carcinoma of the lung on chemotherapy with Xalkori, hypothyroidism, obesity, new episode of atrial fibrillation, pleural effusions, and anemia of chronic disease. PLAN: For this patient is to continue present medical regimen as per Dr. Frost, her site physician; Dr. Parra, her biological science aide; and Dr. Rooney, Infectious Disease art consultant. We will monitor the patient clinically with labs with prognosis for this patient guarded. This is a complex patient with a comprehensive medically necessary and appropriate visit carried out in excess of 70 minutes with the patient's questions and her family questions answered to their satisfaction. Gerard Gibson MD [facility] # [id number]
[2018-06-30 05:50] LABS: BASO # 0.01 K/mm3 (0.0-2.0); GRAN # 18.77 (1.4-6.5); GRAN % 91.8 % (50.0-68.0); HEMOGLOBIN 9.2 g/dL (12.0-16.0); LYMPH # 0.6 (1.2-3.4); LYMPH % 2.9 % (22.0-35.0); MEAN CELL VOLUME 68.1 fl (80.0-105.0); MEAN CORPUSCULAR HEMOGLOBIN 20.3 pg (25.0-35.0); MEAN CORPUSCULAR HGB CONC 29.8 g/dl (31.0-37.0); MEAN PLATELET VOLUME 8.9 fl (7.0-11.0); MONO # 1.1 (0.1-0.6); MONO % 5.3 % (1.0-6.0); RBC 4.54 10^6/uL (3.5-6.1); RED CELL DISTRIBUTION WIDTH 18.4 % (11.5-14.5); WHITE BLOOD COUNT 20.5 10^3/uL (4.5-11.0)
--- NOTE | 2018-06-30 06:33 | CP.PCM.PN ---
<Jasmyn Valadez - Last Filed: 06/30/18 10:38> Subjective - Date & Time of Evaluation Date of Evaluation: 06/30/18 Time of Evaluation: 07:00 - Subjective Subjective: Infectious Disease Progress Note for Keenan Carnes PGY3 Patient seen and examined at bedside. Patient reports some shortness of breath, especially with exertion. She is afebrile and does not have any other complaints. Objective - Vital Signs/Intake and Output Vital Signs (last 24 hours): Temp Pulse Resp BP Pulse Ox 98.5 F 70 20 148/80 96 06/30/18 06:18 06/30/18 06:18 06/30/18 06:18 06/30/18 06:18 06/30/18 06:18 Intake and Output: 06/29/18 06/30/18 18:59 06:59 Intake Total 1230 340 Output Total 500 350 Balance 730 -10 - Medications Medications: Current Medications Albuterol/Ipratropium (Duoneb 3 Mg/0.5 Mg (3 Ml) Ud) 3 ml IH [id number] [facility] Last Admin: 06/29/18 19:58 Dose: 3 ml Albuterol/Ipratropium (Duoneb 3 Mg/0.5 Mg (3 Ml) Ud) 3 ml IH Q2H PRN PRN Reason: Shortness of Breath Arformoterol Tartrate (Brovana) 15 mcg IH [id number] [facility] Last Admin: 06/29/18 19:58 Dose: 15 mcg Aspirin (Aspirin Chewable) 81 mg PO DAILY [facility] Last Admin: 06/29/18 11:08 Dose: 81 mg Atorvastatin Calcium (Lipitor) 40 mg PO DAILY [facility] Last Admin: 06/29/18 11:09 Dose: 40 mg Budesonide (Pulmicort Respules) 0.5 mg IH [id number] [facility] Last Admin: 06/29/18 19:58 Dose: 0.5 mg Doxycycline Hyclate (Doryx) 100 mg PO Q12 [facility]; Protocol Last Admin: 06/29/18 22:23 Dose: 100 mg Enoxaparin Sodium (Lovenox) 110 mg SC Q12H [facility]; Protocol Last Admin: 06/29/18 22:17 Dose: 110 mg Furosemide (Lasix) 20 mg IVP Q12 [facility] Last Admin: 06/29/18 22:24 Dose: 20 mg Vancomycin HCl (Vancomycin 1gm) 1 gm in 250 mls @ 167 mls/hr IVPB Q12H [facility]; Protocol Last Admin: 06/29/18 22:24 Dose: 167 mls/hr Meropenem (Merrem Iv 1 Gm Premix) 1 gm in 50 mls @ 100 mls/hr IVPB Q8 [facility]; Protocol Stop: 07/08/18 07:04 Last Admin: 06/29/18 22:23 Dose: 100 mls/hr Levothyroxine Sodium (Synthroid) 125 mcg PO 0600 [facility] Last Admin: 06/29/18 05:36 Dose: 125 mcg Methylprednisolone (Solu-Medrol) 40 mg IVP Q8H [facility] Last Admin: 06/29/18 22:18 Dose: 40 mg Ondansetron HCl (Zofran Inj) 4 mg IVP Q4H PRN PRN Reason: Nausea/Vomiting - Labs Labs: 06/30/18 05:30 06/29/18 07:30 PT 16.7 SECONDS (9.4-12.5) H 06/28/18 20:00 INR 1.45 06/28/18 20:00 APTT 25.3 Seconds (25.1-36.5) 06/28/18 20:00 - Constitutional Appears: No Acute Distress - Head Exam Head Exam: ATRAUMATIC, NORMAL INSPECTION, NORMOCEPHALIC - Eye Exam Eye Exam: EOMI, Normal appearance, PERRL Pupil Exam: NORMAL ACCOMODATION, PERRL - ENT Exam ENT Exam: Mucous Membranes Moist - Neck Exam Neck Exam: Full ROM - Respiratory Exam Respiratory Exam: Wheezes, NORMAL BREATHING PATTERN (diffuse). absent: Rales, Rhonchi, Respiratory Distress - Cardiovascular Exam Cardiovascular Exam: REGULAR RHYTHM, +S1, +S2. absent: Gallop, Rubs, Murmur - GI/Abdominal Exam GI & Abdominal Exam: Soft, Normal Bowel Sounds. absent: Rigid, Tenderness, Mass, Rebound - Extremities Exam Extremities Exam: Pedal Edema. absent: Calf Tenderness - Neurological Exam Neurological Exam: Alert, Awake, CN II-XII Intact, Oriented x3 - Psychiatric Exam Psychiatric exam: Normal Affect, Normal Mood - Skin Skin Exam: Dry, Warm Assessment and Plan - Assessment and Plan (Free Text) Assessment: 1. HCAP 2. Elevated troponin 3. Lung ca stage IV (non-small cell) - on Xaltori 4. Colon ca 5. Dyslipidemia 6. Thyroid disorder 7. Hx of HCAP Plan: Labs and imaging reviewed. Septic work up pending. PCT is normal. RUL consolidation may be from lung and less likely pneumonia. Will continue Vancomycin, Doxy and Merrem. Will await culture results and make further recommendations. Case seen, discussed and reviewed with Dr. Perdomo. Keenan Valadez PGY3 <Chaim Perdomo - Last Filed: 06/30/18 18:20> Objective - Vital Signs/Intake and Output Vital Signs (last 24 hours): Temp Pulse Resp BP Pulse Ox 98.4 F 67 18 116/62 96 06/30/18 12:00 06/30/18 12:00 06/30/18 12:00 06/30/18 12:00 06/30/18 06:18 Intake and Output: 06/30/18 06/30/18 06:59 18:59 Intake Total 340 650 Output Total 350 1200 Balance -10 -550 - Medications Medications: Current Medications Albuterol/Ipratropium (Duoneb 3 Mg/0.5 Mg (3 Ml) Ud) 3 ml IH [id number] [facility] Last Admin: 06/30/18 13:41 Dose: 3 ml Albuterol/Ipratropium (Duoneb 3 Mg/0.5 Mg (3 Ml) Ud) 3 ml IH Q2H PRN PRN Reason: Shortness of Breath Arformoterol Tartrate (Brovana) 15 mcg IH [id number] [facility] Last Admin: 06/30/18 07:11 Dose: 15 mcg Aspirin (Aspirin Chewable) 81 mg PO DAILY [facility] Last Admin: 06/30/18 10:02 Dose: 81 mg Atorvastatin Calcium (Lipitor) 40 mg PO DAILY [facility] Last Admin: 06/30/18 10:03 Dose: 40 mg Budesonide (Pulmicort Respules) 0.5 mg IH [id number] [facility] Last Admin: 06/30/18 07:12 Dose: 0.5 mg Doxycycline Hyclate (Doryx) 100 mg PO Q12 [facility]; Protocol Last Admin: 06/30/18 10:03 Dose: 100 mg Furosemide (Lasix) 20 mg IVP Q12 [facility] Last Admin: 06/30/18 10:01 Dose: 20 mg Vancomycin HCl (Vancomycin 1gm) 1 gm in 250 mls @ 167 mls/hr IVPB Q12H [facility]; Protocol Last Admin: 06/30/18 10:14 Dose: 167 mls/hr Meropenem (Merrem Iv 1 Gm Premix) 1 gm in 50 mls @ 100 mls/hr IVPB Q8 [facility]; Protocol Stop: 07/08/18 07:04 Last Admin: 06/30/18 15:35 Dose: 100 mls/hr Levothyroxine Sodium (Synthroid) 125 mcg PO 0600 [facility] Last Admin: 06/29/18 05:36 Dose: 125 mcg Methylprednisolone (Solu-Medrol) 40 mg IVP Q8H [facility] Last Admin: 06/30/18 15:36 Dose: 40 mg Metoprolol Tartrate (Lopressor) 25 mg PO BID [facility] Last Admin: 06/30/18 10:02 Dose: 25 mg Ondansetron HCl (Zofran Inj) 4 mg IVP Q4H PRN PRN Reason: Nausea/Vomiting - Labs Labs: 06/30/18 05:30 06/30/18 05:30 PT 16.7 SECONDS (9.4-12.5) H 06/28/18 20:00 INR 1.45 06/28/18 20:00 APTT 25.3 Seconds (25.1-36.5) 06/28/18 20:00 Assessment and Plan - Assessment and Plan (Free Text) Plan: Infectious Diseases Attending Physician Attestation Patient seen and examined, discussed with site medical director. I have reviewed the patient's history of present illness, past medical, family and social histories, personal history, physical exam, lab findings and imaging studies. I agree with the above findings, assessment and plan. In addition, continue Vancomycin, Merrem and Doxycycline for this patient with probable right sided HCAP associated with lung mass. Follow up MRSA screen, final culture results. Overall prognosis is poor.
[2018-06-30] MEDS: MethylPREDNISolone 40 mg Vial IVP SCH ×3 (06:42→22:51)
[2018-06-30] MEDS: Meropenem IV 1 gm in NS 1 GM/50 ML BAG IVPB SCH ×3 (06:42→22:42)
[2018-06-30] MEDS: Arformoterol 15 mcg/2 ml Inh Sol IH SCH ×2 (07:11→20:15)
[2018-06-30] MEDS: Budesonide 0.5 mg/2 ml Inhal Susp UD IH SCH ×2 (07:12→20:15)
[2018-06-30] MEDS: Albuterol-Ipratrop 3 mg / 0.5 (3 ml) UD IH SCH ×3 (07:12→20:15)
--- NOTE | 2018-06-30 07:22 | PN ---
DATE: 06/30/2018 SUBJECTIVE: The patient appears comfortable this morning. She is not short of breath at rest. PHYSICAL EXAMINATION: VITAL SIGNS: Temperature is 98.5, pulse 70, respirations 20, blood pressure 148/80. Oxygen saturation on high-flow delivery is 96%. HEENT: Normocephalic, atraumatic. No JVD. CARDIOVASCULAR: Positive S1, S2. Questionable S3 gallop. LUNGS: Decreased breath sounds with crackles at both bases. Less rhonchi. No wheezing this morning. EXTREMITIES: Positive for moderate edema. No cyanosis or clubbing. Calves are nontender to palpation. GI: Abdomen is soft, nontender and nondistended. Bowel sounds are positive. SKIN: No acute rash. NEUROLOGIC: Exam limited at the present time. PERTINENT LABORATORY DATA: Chest x-ray was done this morning and reviewed. There is less pulmonary vascular congestion noted. The effusions also appear decreased. A large right hilar mass remains. Official results-pending. IMPRESSION: 1. Advanced/extensive non-small cell lung cancer. 2. Advanced chronic obstructive pulmonary disease. 3. Acute congestive heart failure. 4. Zis-BW-lldwkiwzp myocardial infarction. 5. Bilateral pleural effusions. 6. Anemia. PLAN: The patient appears much more comfortable this morning. She is not short of breath at rest. She does state to feeling better overall. She remains very dyspneic with any exertion. I did discuss the case with the night nurse at length. The night nurse stated that the patient had a good night. I did review the chest x-ray from today. The chest x-ray is improved with decreased pulmonary vascular congestion. There also appears to be decreased pleural effusions. A large right hilar mass remains. Official results are pending. On physical exam, the patient's bronchospasm is less. In addition, the alveolar-arterial gradient is also less. I will continue the current nebulizer treatments and intravenous steroids for now. I would continue with the treatment for congestive heart failure and myocardial infarction as per Cardiology. The patient remains on therapeutic Lovenox and intravenous Lasix. The patient also remains on antibiotic therapy - as per Infectious Disease. There are no temperatures noted. Repeat a.m. labs are pending. Clinical status of the patient appears improved - compared to her initial presentation. However, unfortunately, the overall/future status for this patient appears poor. I will discuss the above with the attending physician. Harris Parra MD MTDKadie
[2018-06-30 07:30] LABS: ALB/GLOB RATIO 0.8 (1.1-1.8); ALBUMIN 2.7 g/dL (3.0-4.8); ALT/SGPT 48 U/L (7-56); AST/SGOT 32 U/L (14-36); BLOOD UREA NITROGEN 20 mg/dL (7-21); CALCIUM 8.2 mg/dL (8.4-10.5); GFR NON-AFRICAN AMERICAN > 60
--- NOTE | 2018-06-30 08:10 | CARD ---
APPROVED REPORT Date of service: 06/29/2018 EXAM: Two-dimensional and M-mode echocardiogram with Doppler and color Doppler. Other Information Quality : AverageRhythm : INDICATION SOB/+ TROPONIN 2D DIMENSIONS Left Atrium (2D)4.6 (1.6-4.0cm)IVSd1.2 (0.7-1.1cm) LVDd4.2 (3.9-5.9cm)PWd1.3 (0.7-1.1cm) LVDs2.7 (2.5-4.0cm)FS (%) 35.7 % LVEF (%)66.0 (>50%) M-Mode DIMENSIONS Aortic Root3.50 (2.2-3.7cm)Aortic Cusp Exc.1.70 (1.5-2.0cm) Aortic Valve AoV Peak Zggfvljw422.0cm/s Mitral Valve E/A ratio0.0 TDI E/Lateral E'0.0E/Medial E'0.0 Pulmonary Valve PV Peak Mmgmlgmf517.0cm/sPV Peak Grad.6mmHg Tricuspid Valve TR Peak [id number]/sRAP [id number] Peak Gr.49mmHg [id number] LEFT VENTRICLE The left ventricle is normal size. There is normal left ventricular wall thickness. The left ventricular function is normal. The left ventricular ejection fraction is within the normal range. There is normal LV segmental wall motion. RIGHT VENTRICLE The right ventricle is mildly dilated. ATRIA The left atrium size is normal. The right atrium is mildly dilated. The interatrial septum is intact with no evidence for an atrial septal defect. AORTIC VALVE The aortic valve is normal in structure. MITRAL VALVE The mitral valve is normal in structure. TRICUSPID VALVE The tricuspid valve is normal in structure. There is moderate tricuspid regurgitation. There is moderate pulmonary hypertension. PULMONIC VALVE The pulmonic valve is not well visualized. GREAT VESSELS The aortic root is normal in size. PERICARDIAL EFFUSION There is a trace pericardial effusion. <Conclusion> The left ventricle is normal size. There is normal left ventricular wall thickness. The left ventricular function is normal. There is moderate tricuspid regurgitation. There is moderate pulmonary hypertension.
--- NOTE | 2018-06-30 08:47 | CP.PCM.PN ---
Subjective - Date & Time of Evaluation Date of Evaluation: 06/30/18 Time of Evaluation: 08:47 - Subjective Subjective: Hematology/Oncology Progress Note (Dr. Adames's Service) Patient seen and assessed at bedside. No acute events noted overnight. Patient reports feeling "much better" than when she was admitted but still reports mild SOB with exertion. Patient denies any further complaints at this time including fevers, chills, headache, chest pain, SOB, abdominal pain, N/V/D/C, changes in urine output, skin changes or any numbness/tingling of any extremity. Objective - Vital Signs/Intake and Output Vital Signs (last 24 hours): Temp Pulse Resp BP Pulse Ox 98.5 F 70 20 148/80 96 06/30/18 06:18 06/30/18 06:18 06/30/18 06:18 06/30/18 06:18 06/30/18 06:18 Intake and Output: 06/30/18 06/30/18 06:59 18:59 Intake Total 340 650 Output Total 350 1200 Balance -10 -550 - Medications Medications: Current Medications Albuterol/Ipratropium (Duoneb 3 Mg/0.5 Mg (3 Ml) Ud) 3 ml IH [id number] [facility] Last Admin: 06/30/18 07:12 Dose: 3 ml Albuterol/Ipratropium (Duoneb 3 Mg/0.5 Mg (3 Ml) Ud) 3 ml IH Q2H PRN PRN Reason: Shortness of Breath Arformoterol Tartrate (Brovana) 15 mcg IH [id number] [facility] Last Admin: 06/30/18 07:11 Dose: 15 mcg Aspirin (Aspirin Chewable) 81 mg PO DAILY [facility] Last Admin: 06/29/18 11:08 Dose: 81 mg Atorvastatin Calcium (Lipitor) 40 mg PO DAILY [facility] Last Admin: 06/29/18 11:09 Dose: 40 mg Budesonide (Pulmicort Respules) 0.5 mg IH [id number] [facility] Last Admin: 06/30/18 07:12 Dose: 0.5 mg Doxycycline Hyclate (Doryx) 100 mg PO Q12 [facility]; Protocol Last Admin: 06/29/18 22:23 Dose: 100 mg Enoxaparin Sodium (Lovenox) 110 mg SC Q12H [facility]; Protocol Last Admin: 06/29/18 22:17 Dose: 110 mg Furosemide (Lasix) 20 mg IVP Q12 [facility] Last Admin: 06/29/18 22:24 Dose: 20 mg Vancomycin HCl (Vancomycin 1gm) 1 gm in 250 mls @ 167 mls/hr IVPB Q12H [facility]; Protocol Last Admin: 06/29/18 22:24 Dose: 167 mls/hr Meropenem (Merrem Iv 1 Gm Premix) 1 gm in 50 mls @ 100 mls/hr IVPB Q8 [facility]; Protocol Stop: 07/08/18 07:04 Last Admin: 06/30/18 06:42 Dose: 100 mls/hr Levothyroxine Sodium (Synthroid) 125 mcg PO 0600 [facility] Last Admin: 06/29/18 05:36 Dose: 125 mcg Methylprednisolone (Solu-Medrol) 40 mg IVP Q8H [facility] Last Admin: 06/30/18 06:42 Dose: 40 mg Metoprolol Tartrate (Lopressor) 25 mg PO BID [facility] Ondansetron HCl (Zofran Inj) 4 mg IVP Q4H PRN PRN Reason: Nausea/Vomiting - Labs Labs: 06/30/18 05:30 06/30/18 05:30 PT 16.7 SECONDS (9.4-12.5) H 06/28/18 20:00 INR 1.45 06/28/18 20:00 APTT 25.3 Seconds (25.1-36.5) 06/28/18 20:00 - Additional Findings Additional findings: - Constitutional Appears: Non-toxic, No Acute Distress - Head Exam Head Exam: ATRAUMATIC, NORMOCEPHALIC - Eye Exam Eye Exam: EOMI, Normal appearance - ENT Exam ENT Exam: Mucous Membranes Moist - Neck Exam Neck Exam: Full ROM, Normal Inspection. absent: Lymphadenopathy, Meningismus, Tenderness, Thyromegaly - Respiratory Exam Respiratory Exam: Clear to Ausculation Bilateral, NORMAL BREATHING PATTERN. absent: Accessory Muscle Use, Rales, Rhonchi, Wheezes, Respiratory Distress - Cardiovascular Exam Cardiovascular Exam: RRR, +S1, +S2 - GI/Abdominal Exam GI & Abdominal Exam: Soft, Normal Bowel Sounds. absent: Distended, Firm, Guarding, Rigid, Tenderness - Extremities Exam Extremities Exam: Pedal Edema (Minimal trace pitting edema bilaterally extending to ankle). absent: Calf Tenderness, Joint Swelling - Neurological Exam Neurological Exam: Alert, Awake, Normal Gait, Oriented x3 - Psychiatric Exam Psychiatric exam: Normal Affect, Normal Mood - Skin Skin Exam: Dry, Intact, Normal Color, Warm Assessment and Plan - Assessment and Plan (Free Text) Assessment: 68 year old female with a past medical history significant for NSCLC on Xalkori, colonic adenocarcinoma s/p partial colectomy, and obesity who presented with SOB and lower extremity edema after returning home [place]. Plan: 1. Right Sided HCAP vs. COPD Exacerbation -See Chest CT and Chest X-Ray reports -Continue Vancomycin, Doxycycline and Merrem (Day 2) -Continue Solumedrol IVP as ordered -Continue Duonebs scheduled and PRN as ordered -Continue Brovana and Pulmicort -Continue supplemental high flow oxygen -Continue Zofran PRN for N/V -ID and Pulmonology consulted, all recommendations appreciated 2. Elevated Troponins with CAD -Likely secondary to demand ischemia -Continue low dose ASA and Metoprolol -Cardiology consulted, all recommendations appreciated 3. Lower Extremity Edema -See LE venous doppler US report -Continue Lasix IVP 4. History of HLD -Continue Lipitor 5. History of Hypothyroidism -Continue home Synthroid GI Prophylaxis: Protonix DVT Prophylaxis: SCD's Diet: Heart Healthy Code Status: Full Code Patient seen and case discussed with attending, Dr. Adames. Ramón España PGY2
--- NOTE | 2018-06-30 09:30 | RAD ---
Date of service: 06/30/2018 HISTORY: f/u COMPARISON: 06/28/2018 FINDINGS: LUNGS: Left lower lobe infiltrate and effusion. PLEURA: No significant pleural effusion identified, no pneumothorax apparent. CARDIOVASCULAR: No aortic atherosclerotic calcification present. Mild cardiomegaly enlarged pulmonary vessels OSSEOUS STRUCTURES: No significant abnormalities. VISUALIZED UPPER ABDOMEN: Normal. OTHER FINDINGS: None. IMPRESSION: Left lower lobe infiltrate and effusion. Prominent pulmonary vessels
[2018-06-30] MEDS: Enoxaparin 120 mg Syringe SC SCH (10:13)
[2018-06-30] MEDS: Vancomycin 1gm in NS 250ml 1 GM/250 ML BAG IVPB SCH ×2 (10:14→22:52)
--- NOTE | 2018-06-30 19:01 | CARD ---
APPROVED REPORT Date of service: 06/30/2018 EKG Measurement Heart [id number] <Conclusion> Normal sinus rhythm Normal ECG
--- NOTE | 2018-07-01 02:04 | PN ---
DATE: 06/30/2018 SUBJECTIVE: This patient was seen and evaluated today. The patient is feeling slightly better. Tolerating the diet, complains of constipation, did not move her bowels for two days. PHYSICAL EXAMINATION: VITAL SIGNS: Temperature 98.5, pulse 70, respirations 20, blood pressure 148/80. HEENT: Atraumatic, anicteric. NECK: Supple. HEART: S1, S2 heart. LUNGS: Bilateral air entry present. ABDOMEN: Soft. No tenderness. LABORATORY DATA: Hemoglobin 9.2, hematocrit 30.9, WBC 20.5, platelets 672. Chemistries showed LFTs showing downward trend. Alkaline phosphatase 149, AST 32, ALT 48. IMPRESSION: This is a 68-year-old patient with a history of lung cancer, adenocarcinoma of the lung, on Xalkori; history of colon cancer, status post extended right hemicolectomy presented with shortness of breath and lower extremity edema, found to have pneumonia and also elevated troponin levels. The patient does have a history of gallstones and patient was recently admitted to the hospital with elevated liver function tests, nonvisualized gallbladder in the hepatobiliary iminodiacetic acid scan, managed conservatively. The patient has a history of recent PET scan that showed some activities in the left colon. The patient has history of dysphagia and inflammatory changes to area. We would recommend elective esophagogastroduodenoscopy and a colonoscopy. Continue the antibiotics and present management. Followup of the liver function tests. Thank you very much for allowing us to participate in the care of the patient. Farida Rosado MD
[2018-07-01] MEDS: Albuterol-Ipratrop 3 mg / 0.5 (3 ml) UD IH SCH ×4 (02:40→20:17)
[2018-07-01] MEDS: Meropenem IV 1 gm in NS 1 GM/50 ML BAG IVPB SCH ×3 (05:54→22:11)
[2018-07-01] MEDS: MethylPREDNISolone 40 mg Vial IVP SCH ×3 (05:55→22:15)
[2018-07-01 07:28] LABS: BASO # 0.01 K/mm3 (0.0-2.0); BASO % 0.1 % (0.0-3.0); GRAN # 15.25 (1.4-6.5); GRAN % 90.5 % (50.0-68.0); HEMOGLOBIN 8.8 g/dL (12.0-16.0); LYMPH # 0.7 (1.2-3.4); LYMPH % 3.9 % (22.0-35.0); MEAN CELL VOLUME 69.4 fl (80.0-105.0); MEAN CORPUSCULAR HGB CONC 28.8 g/dl (31.0-37.0); MONO # 0.9 (0.1-0.6); MONO % 5.5 % (1.0-6.0); RBC 4.41 10^6/uL (3.5-6.1); RED CELL DISTRIBUTION WIDTH 18.3 % (11.5-14.5); WHITE BLOOD COUNT 16.8 10^3/uL (4.5-11.0)
[2018-07-01 07:43] LABS: BLOOD UREA NITROGEN 23 mg/dL (7-21); CALCIUM 8.3 mg/dL (8.4-10.5); GFR NON-AFRICAN AMERICAN > 60
--- NOTE | 2018-07-01 07:50 | PN ---
DATE: 07/01/2018 SUBJECTIVE: The patient appears comfortable this morning. She is not short of breath at rest. OBJECTIVE: VITAL SIGNS: Temperature is 97.2, pulse 61, respirations 18/20, blood pressure 147/75. Oxygen saturation on high-flow delivery is 94-100%. HEENT: Normocephalic, atraumatic. No JVD. CARDIOVASCULAR: Positive S1, S2. Questionable S3 gallop. LUNGS: Decreased breath sounds at the bases with crackles. Much less rhonchi. No wheezing. EXTREMITIES: Moderate edema is present. No cyanosis or clubbing. Calves are nontender to palpation. GI: Abdomen is soft, nontender and nondistended. Bowel sounds are positive. SKIN: No acute rash. NEUROLOGIC: Limited at the present time. IMPRESSION: 1. Advanced/extensive non-small cell lung cancer. 2. Advanced chronic obstructive pulmonary disease. 3. Acute congestive heart failure. 4. Dkq-KJ-dkvvzvumk myocardial infarction. 5. Bilateral pleural effusions. 6. Anemia. PLAN: The patient appears comfortable this morning. She is not short of breath at rest. She does state to feeling much better overall. She is less dyspneic with exertion. I did discuss the case with the night nurse at length. The night nurse stated that the patient had a good night. On physical exam, there is much less bronchospasm noted. In addition, the alveolar-arterial gradient is also much less. I will continue the current nebulizer treatments and decrease the intravenous steroids this morning. I would continue with the treatment for congestive heart failure and myocardial infarction as per Cardiology. Inputs are noted. The patient also remains on antibiotic therapy. There are no temperatures noted. Repeat a.m. labs are pending. Clinical status of the patient is certainly improved - compared to her initial presentation. However, unfortunately, the patient's overall status/prognosis does appear poor. I will discuss the above with the attending physician. Harris Parra MD MTDKadie
[2018-07-01] MEDS: Budesonide 0.5 mg/2 ml Inhal Susp UD IH SCH ×2 (08:45→20:16)
[2018-07-01] MEDS: Arformoterol 15 mcg/2 ml Inh Sol IH SCH ×2 (08:45→20:16)
--- NOTE | 2018-07-01 10:10 | PN ---
DATE: 07/01/2018 SUBJECTIVE: The patient is seen sitting in bed on telemetry. She continues to have dyspnea with minimal exertion. She denies any chest pain. CURRENT MEDICATIONS: Include aspirin, Brovana, doxycycline, DuoNeb inhaler, Lasix 20 mg IV every 12 hours, Lipitor 40 mg daily, metoprolol 25 mg b.i.d., meropenem, Pulmicort, Solu-Medrol, Synthroid and vancomycin. OBJECTIVE: GENERAL: She is an overweight middle-aged woman. VITAL SIGNS: Her blood pressure is 146/76 with a pulse of 60 and sinus, respirations are 16. She is afebrile. HEENT: No JVD. CHEST: Bilateral scattered rhonchi. HEART: PMI in normal position. Systolic murmur is noted at the left sternal border. ABDOMEN: Soft, nontender with normoactive bowel sounds. EXTREMITIES: 1+ leg edema. DIAGNOSTIC DATA: White count 16.8, hemoglobin and hematocrit 8.8 and 30.6 with platelet count of 700,000. Potassium 4.0, BUN and creatinine of 23 and 0.8, repeat troponin 0.81. TSH 0.02. Synthroid has been placed on hold. IMPRESSION: 1. Mildly decompensated congestive heart failure, acute, likely diastolic in nature. 2. Possible pneumonia, on broad-spectrum antibiotics. 3. Nonsmall-cell lung cancer, undergoing chemotherapy. 4. Mildly elevated troponin, likely due to demand ischemia. 5. Thrombocytosis. RECOMMENDATIONS: IV Lasix will continue for now. Negative fluid balance is advised. Antibiotic therapy should continue as well. Conservative cardiac management given her evidence of advanced lung cancer is advised. We will continue to follow and make further recommendations as appropriate. Vidal Fong MD
[2018-07-01] MEDS: Vancomycin 1gm in NS 250ml 1 GM/250 ML BAG IVPB SCH ×2 (11:08→22:12)
--- NOTE | 2018-07-01 13:00 | CP.PCM.PN ---
Subjective - Date & Time of Evaluation Date of Evaluation: 07/01/18 Time of Evaluation: 10:05 - Subjective Subjective: Comfortable on a chair, feeling a little better, cough and breathing are getting better, no fevers. Objective - Vital Signs/Intake and Output Vital Signs (last 24 hours): Temp Pulse Resp BP Pulse Ox 98.4 F 67 18 116/62 96 06/30/18 12:00 06/30/18 12:00 06/30/18 12:00 06/30/18 12:00 06/30/18 06:18 Intake and Output: 06/30/18 06/30/18 06:59 18:59 Intake Total 340 650 Output Total 350 1200 Balance -10 -550 - Medications Medications: Current Medications Albuterol/Ipratropium (Duoneb 3 Mg/0.5 Mg (3 Ml) Ud) 3 ml IH [id number] [facility] Last Admin: 06/30/18 13:41 Dose: 3 ml Albuterol/Ipratropium (Duoneb 3 Mg/0.5 Mg (3 Ml) Ud) 3 ml IH Q2H PRN PRN Reason: Shortness of Breath Arformoterol Tartrate (Brovana) 15 mcg IH [id number] [facility] Last Admin: 06/30/18 07:11 Dose: 15 mcg Aspirin (Aspirin Chewable) 81 mg PO DAILY [facility] Last Admin: 06/30/18 10:02 Dose: 81 mg Atorvastatin Calcium (Lipitor) 40 mg PO DAILY [facility] Last Admin: 06/30/18 10:03 Dose: 40 mg Budesonide (Pulmicort Respules) 0.5 mg IH [id number] [facility] Last Admin: 06/30/18 07:12 Dose: 0.5 mg Doxycycline Hyclate (Doryx) 100 mg PO Q12 JOHN; Protocol Last Admin: 06/30/18 10:03 Dose: 100 mg Furosemide (Lasix) 20 mg IVP Q12 JOHN Last Admin: 06/30/18 10:01 Dose: 20 mg Vancomycin HCl (Vancomycin 1gm) 1 gm in 250 mls @ 167 mls/hr IVPB Q12H JOHN; Protocol Last Admin: 06/30/18 10:14 Dose: 167 mls/hr Meropenem (Merrem Iv 1 Gm Premix) 1 gm in 50 mls @ 100 mls/hr IVPB Q8 JOHN; Protocol Stop: 07/08/18 07:04 Last Admin: 06/30/18 15:35 Dose: 100 mls/hr Levothyroxine Sodium (Synthroid) 125 mcg PO 0600 [facility] Last Admin: 06/29/18 05:36 Dose: 125 mcg Methylprednisolone (Solu-Medrol) 40 mg IVP Q8H [facility] Last Admin: 06/30/18 15:36 Dose: 40 mg Metoprolol Tartrate (Lopressor) 25 mg PO BID [facility] Last Admin: 06/30/18 10:02 Dose: 25 mg Ondansetron HCl (Zofran Inj) 4 mg IVP Q4H PRN PRN Reason: Nausea/Vomiting - Labs Labs: 06/30/18 05:30 06/30/18 05:30 PT 16.7 SECONDS (9.4-12.5) H 06/28/18 20:00 INR 1.45 06/28/18 20:00 APTT 25.3 Seconds (25.1-36.5) 06/28/18 20:00 - Constitutional Appears: Chronically Ill - Head Exam Head Exam: NORMAL INSPECTION - Neck Exam Neck Exam: absent: Meningismus - Respiratory Exam Respiratory Exam: Decreased Breath Sounds - Cardiovascular Exam Cardiovascular Exam: +S1, +S2 - GI/Abdominal Exam GI & Abdominal Exam: Soft. absent: Tenderness Assessment and Plan - Assessment and Plan (Free Text) Plan: Assessment probable right sided HCAP associated with lung mass lung cancer, non-small cell, stage 4 morbid obesity with BMI 40 dyslipidemia colon cancer Plan continue Vancomycin, Merrem and Doxycycline day 3 Follow up MRSA screen, final culture results Overall prognosis is poor
[2018-07-01] MEDS: Enoxaparin 120 mg Syringe SC SCH ×2 (13:21→22:15)
[2018-07-02] MEDS: Albuterol-Ipratrop 3 mg / 0.5 (3 ml) UD IH SCH ×4 (01:40→20:01)
--- NOTE | 2018-07-02 02:33 | PN ---
DATE: 07/01/2018 LOCATION: The patient is in room 264, bed 2. 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 She was admitted to the hospital with progressive dyspnea on exertion to the point that the patient was panicking with shortness of breath, was admitted to the emergency room with troponin elevation suggestive of demand ischemia and findings on the CAT scan of the chest which was negative for PE with suggestive of pneumonitis for which the patient has been started on broad-spectrum antibiotics and has improved from that point of view, but still on high-flow nasal oxygen with IV antibiotics and IV steroids and seems be slowly improving. Subjectively, the patient is concerned about swelling of both upper extremities more recently for now, not due to possibility of finding veins, but recent onset that has been concerning the patient. The patient also has been noticing lower extremity edema and weight gain over the past few days since admission. The patient had been seen by the hospitalist during the night for the same, and the patient has been started on IV Lasix along with the other medications. The patient tells me at this point in time that her breathing is slightly better, but still concerns of the swelling. The patient denies any chest pain. She is sitting out of bed on telemetry. CURRENT MEDICATIONS: Reviewed. She is on aspirin, Brovana, doxycycline, DuoNeb inhaler, Lasix 20 mg IV every 12 hours, Lipitor 40 mg daily, metoprolol 25 mg b.i.d. She is on meropenem, Pulmicort, Solu-Medrol, Synthroid, and vancomycin. The patient also received one dose of Lovenox, pending the results of the venous Doppler ultrasound of her extremities including the neck and subclavian veins. PHYSICAL EXAMINATION: GENERAL: The patient is currently in bed with leg dangling. The patient tells me that her breathing is slightly improved, but still has shortness of breath on minimal exertion. VITAL SIGNS: Stable. Blood pressure 146/76, pulse 60, respiration of 16. The patient is afebrile. HEENT: Head is normocephalic and atraumatic. Conjunctivae pale. Sclerae are anicteric. Examination of the oropharynx reveals no oropharyngeal lesion. Tongue is moist. No ulcerations are noted. NECK: Supple. There is no adenopathy. No jugular venous distention noted. No adenopathy noted. LUNGS: Reveals bilateral scattered rhonchi with decreased breath sounds in the right side posteriorly. HEART: Reveals PMI in the fifth intercostal space. There is systolic murmur in the left sternal border. ABDOMEN: Soft, protuberant, nontender. No rebound, rigidity or guarding is noted. EXTREMITIES: The patient has left lower extremity edema. The patient has swelling on knuckles and hands, left more than the right with definite obvious swelling of the upper extremities as well. GENITOURINARY: Deferred. RECTAL: Deferred. NEUROLOGICAL: Reveals no focal deficits. LABORATORY DATA: Reveals a white count of 16, hemoglobin and hematocrit are 8.8 and 30.6, platelet count 700,000. Potassium is 4, BUN and creatinine 23 and 0.8. Troponin is down to 0.81, which was as high as 2.3. TSH is 0.02. Synthroid has been placed on hold. ASSESSMENT NOTES AND PLAN: The patient has mildly decompensated congestive heart failure due to diastolic dysfunction. Possible pneumonia, on broad spectrum antibiotics, stage IIIB oyx-[id number] carcinoma of the lung, mediastinal invasion. Mildly elevated troponin secondary to demand ischemia rather than cardiac event per se. Thrombocytosis related to reactively underlying malignancy and the ongoing anemia. PLAN: We will discuss treatment plans with ID and Pulmonology for the next 24 to 48 hours. The patient is already on Lasix 20 mg b.i.d. The patient will try to be kept on negative fluid balance and will decide when the antibiotics should be replaced to oral antibiotics or transition to oral antibiotics once we have the cultures and procalcitonin values available. I discussed this with the patient's family regarding the causative factors for the worsening of the breathing. The patient's most recent PET CT scan had shown stable disease as far as the right upper lobe lung lesion and mediastinal disease is concerned without any progression elsewhere of the evidence on the CAT scan or the above portion of the PET CT. The most recent CAT scan done with a CT angio during this admission shows the size of the hilar and mediastinal nodes as likely larger whether these are reactive to the underlying infection or the larger because of the progression of the disease seems to be waited on till the infection gets better. In the meantime, I told the patient that we are going to have the patient be reassessed for additional treatment while on crizotinib including radiation plus/minus chemotherapy or switching the patient over to different drug. The patient has been on crizotinib only for three months on a continuous basis as she had interruptions initially when we started off with this pill because of some issues associated with retinal detachment in her eyes. Plan is to give the patient transfusion if the hemoglobin also help for the oxygen capacity and help the patient breathe better. Routine post-examination instructions have been given to the patient. We will follow the patient very carefully over the next 48 to 72 hours. We will check with ID also as far as antibiotic recommendations are concerned. I discussed with Dr. Fong who feels at this point in time as we need to continue IV anticoagulation, but need to manage her more aggressively from the cardiac diastolic dysfunction point of view. Gabby Adames MD
[2018-07-02 05:39] LABS: GRAN # 11.46 (1.4-6.5); GRAN % 89.1 % (50.0-68.0); HEMOGLOBIN 9.4 g/dL (12.0-16.0); LYMPH # 0.7 (1.2-3.4); LYMPH % 5.2 % (22.0-35.0); MEAN CELL VOLUME 69.8 fl (80.0-105.0); MEAN CORPUSCULAR HEMOGLOBIN 20.1 pg (25.0-35.0); MEAN CORPUSCULAR HGB CONC 28.8 g/dl (31.0-37.0); MONO # 0.7 (0.1-0.6); MONO % 5.7 % (1.0-6.0); RBC 4.67 10^6/uL (3.5-6.1); RED CELL DISTRIBUTION WIDTH 18.6 % (11.5-14.5); WHITE BLOOD COUNT 12.9 10^3/uL (4.5-11.0)
[2018-07-02 05:51] LABS: ALB/GLOB RATIO 0.7 (1.1-1.8); ALBUMIN 2.6 g/dL (3.0-4.8); ALT/SGPT 55 U/L (7-56); AST/SGOT 40 U/L (14-36); BLOOD UREA NITROGEN 21 mg/dL (7-21); CALCIUM 8.5 mg/dL (8.4-10.5); GFR NON-AFRICAN AMERICAN > 60
[2018-07-02] MEDS: Meropenem IV 1 gm in NS 1 GM/50 ML BAG IVPB SCH ×3 (05:58→21:49)
--- NOTE | 2018-07-02 06:35 | PN ---
DATE: 07/02/2018 SUBJECTIVE: The patient is seen sitting in bed on telemetry. She is currently comfortable. Last evening she did remove her oxygen to walk to the bathroom and developed paroxysmal atrial fibrillation. She is subsequently converted to sinus rhythm. She denies any chest pain. Her dyspnea is slowly improving and upper extremity ultrasound showed no evidence of deep venous thrombosis yesterday. Her current medications include aspirin, Brovana, doxycycline, DuoNeb inhaler, Lasix 20 mg IV every 12 hours, Lipitor 40 mg daily, metoprolol 25 mg b.i.d., Lovenox, meropenem, Pulmicort, Solu-Medrol 40 mg every 12 hours, Synthroid, vancomycin. OBJECTIVE: GENERAL: She is a overweight middle-aged woman. VITAL SIGNS: Blood pressure is 130/70 with a pulse of 66 and sinus, respirations are 16. She is afebrile. HEENT: No JVD. CHEST: Bilateral scattered rhonchi with scattered wheezing. HEART: PMI reveals distant tones with soft systolic murmur at left sternal border. ABDOMEN: Soft, nontender, mildly obese and normoactive bowel sounds. EXTREMITIES: 1+ anasarca. DIAGNOSTIC DATA: Potassium 4.3, BUN and creatinine 21 and 0.8. White count 12.9, hemoglobin and hematocrit 9.4 and 32.6 with platelet count of 733,000. IMPRESSION: 1. Mildly decompensated congestive heart failure, clinically improved. 2. Possible pneumonia, on broad-spectrum antibiotics. 3. Sxl-huijt-pzks lung cancer, undergoing chemotherapy. 4. Recent mild elevation of troponin likely due to demand ischemia. 5. Paroxysmal atrial fibrillation, possibly triggered by hypoxia. 6. Thrombocytosis. 7. Moderate tricuspid regurgitation. RECOMMENDATIONS: Continued conservative cardiac management at this time is reasonable. Beta-alexander therapy should be continued if tolerated for antianginal benefit as well as rate control therapy in the setting of paroxysmal atrial fibrillation. If she has more rapid episodes, a higher dose can be entertained. Anticoagulant therapy will be continued for now given her paroxysmal atrial fibrillation, switching to her chronic oral agent would likely be reasonable given her potential for recurrent atrial fibrillation in her clinical setting. We will continue to follow and make further recommendations as appropriate. Vidal Fong MD [facility] # [id number]
--- NOTE | 2018-07-02 06:46 | PN ---
DATE: 07/02/2018 PULMONARY NOTE DICTATION SUBJECTIVE: The patient appears comfortable this morning. She is not short of breath at rest. PHYSICAL EXAMINATION: VITAL SIGNS: Temperature is 97.2, pulse on the monitor is 81, respiratory rate 16/18, blood pressure 130/70. Oxygen saturation on high-flow delivery is 95%. HEENT: Normocephalic, atraumatic. No JVD. CARDIOVASCULAR: Positive S1, S2. Questionable S3 gallop. LUNGS: Decreased breath sounds at the bases with crackles. Minimal/less rhonchi. No wheezing. EXTREMITIES: Moderate edema is present. No cyanosis or clubbing. Calves are nontender to palpation. GI: Abdomen is soft, nontender and nondistended. Bowel sounds are positive. SKIN: No acute rash. NEUROLOGIC: Exam limited at the present time. IMPRESSION: 1. Advanced/extensive non-small cell lung cancer. 2. Advanced chronic obstructive pulmonary disease. 3. Acute congestive heart failure. 4. Xqz-EW-otssjlvpt myocardial infarction. 5. Bilateral pleural effusions. 6. Anemia. PLAN: The patient appears comfortable this morning. She is not short of breath at rest. She does state to feeling much, much better overall. I did discuss the case with the night nurse at length. The night nurse stated that the patient had a good night. On physical exam, her bronchospasm continues to slowly resolve. In addition, the alveolar-arterial gradient is also much less. I will continue the current nebulizer treatments and low-dose intravenous steroids (decreased yesterday) for now. If the patient remains improved, I plan on decreasing the steroids further tomorrow morning. I would continue with the treatment for congestive heart failure and myocardial infarction as per Cardiology. Input by Dr. Fong is noted. The patient remains on intravenous Lasix, and is now on therapeutic enoxaparin. I would continue with the antibiotic coverage as per Infectious Disease. There are no temperatures noted. The leukocytosis is resolving. Clinical status of the patient appears significantly improved - compared to initial presentation. However, again, unfortunately, the overall status/prognosis for this patient remains poor. I will discuss the above with the attending physician. Harris Parra MD [facility] # [id number] DAVID
[2018-07-02] MEDS: Arformoterol 15 mcg/2 ml Inh Sol IH SCH ×2 (07:20→20:00)
[2018-07-02] MEDS: Budesonide 0.5 mg/2 ml Inhal Susp UD IH SCH ×2 (07:21→20:01)
--- NOTE | 2018-07-02 08:50 | CARD ---
APPROVED REPORT Date of service: 07/02/2018 EKG Measurement Heart [id number] <Conclusion> Atrial fibrillation with premature ventricular complexes Inferior infarct, age undetermined Abnormal ECG
[2018-07-02] MEDS: Enoxaparin 120 mg Syringe SC SCH ×2 (10:35→21:50)
[2018-07-02] MEDS: MethylPREDNISolone 40 mg Vial IVP SCH ×2 (10:37→21:51)
--- NOTE | 2018-07-02 12:25 | CP.PCM.PN ---
Subjective - Date & Time of Evaluation Date of Evaluation: 07/02/18 Time of Evaluation: 10:40 - Subjective Subjective: Cough is improving, breathing is a little better, no fevers. Objective - Vital Signs/Intake and Output Vital Signs (last 24 hours): Temp Pulse Resp BP Pulse Ox 97.3 F L 67 20 123/70 94 L 07/01/18 12:00 07/01/18 12:00 07/01/18 12:00 07/01/18 12:00 07/01/18 06:00 Intake and Output: 07/01/18 07/01/18 06:59 18:59 Intake Total 480 Balance 480 - Medications Medications: Current Medications Albuterol/Ipratropium (Duoneb 3 Mg/0.5 Mg (3 Ml) Ud) 3 ml IH [id number] [facility] Last Admin: 07/01/18 08:45 Dose: 3 ml Albuterol/Ipratropium (Duoneb 3 Mg/0.5 Mg (3 Ml) Ud) 3 ml IH Q2H PRN PRN Reason: Shortness of Breath Arformoterol Tartrate (Brovana) 15 mcg IH [id number] [facility] Last Admin: 07/01/18 08:45 Dose: 15 mcg Aspirin (Aspirin Chewable) 81 mg PO DAILY [facility] Last Admin: 07/01/18 11:06 Dose: 81 mg Atorvastatin Calcium (Lipitor) 40 mg PO DAILY [facility] Last Admin: 07/01/18 11:06 Dose: 40 mg Budesonide (Pulmicort Respules) 0.5 mg IH [id number] [facility] Last Admin: 07/01/18 08:45 Dose: 0.5 mg Doxycycline Hyclate (Doryx) 100 mg PO Q12 JOHN; Protocol Last Admin: 07/01/18 11:07 Dose: 100 mg Enoxaparin Sodium (Lovenox) 114 mg SC Q12 JOHN; Protocol Furosemide (Lasix) 20 mg IVP Q12 [facility] Last Admin: 07/01/18 11:07 Dose: 20 mg Vancomycin HCl (Vancomycin 1gm) 1 gm in 250 mls @ 167 mls/hr IVPB Q12H [facility]; Protocol Last Admin: 07/01/18 11:08 Dose: 167 mls/hr Meropenem (Merrem Iv 1 Gm Premix) 1 gm in 50 mls @ 100 mls/hr IVPB Q8 [facility]; Protocol Stop: 07/08/18 07:04 Last Admin: 07/01/18 05:54 Dose: 100 mls/hr Levothyroxine Sodium (Synthroid) 125 mcg PO 0600 [facility] Last Admin: 06/29/18 05:36 Dose: 125 mcg Methylprednisolone (Solu-Medrol) 40 mg IVP Q12 [facility] Last Admin: 07/01/18 11:08 Dose: 40 mg Metoprolol Tartrate (Lopressor) 25 mg PO BID [facility] Last Admin: 07/01/18 11:06 Dose: 25 mg Ondansetron HCl (Zofran Inj) 4 mg IVP Q4H PRN PRN Reason: Nausea/Vomiting - Labs Labs: 07/01/18 06:30 07/01/18 06:30 PT 16.7 SECONDS (9.4-12.5) H 06/28/18 20:00 INR 1.45 06/28/18 20:00 APTT 25.3 Seconds (25.1-36.5) 06/28/18 20:00 - Constitutional Appears: Chronically Ill - Head Exam Head Exam: NORMAL INSPECTION - Respiratory Exam Respiratory Exam: Decreased Breath Sounds - Cardiovascular Exam Cardiovascular Exam: +S1, +S2 - GI/Abdominal Exam GI & Abdominal Exam: Soft. absent: Tenderness Assessment and Plan - Assessment and Plan (Free Text) Plan: Assessment probable right sided HCAP associated with lung mass lung cancer, non-small cell, stage 4 morbid obesity with BMI 40 dyslipidemia colon cancer Plan continue Merrem and Doxycycline day 4 for 4-7 days - as discussed with Dr. Adames - may be able to switch to PO antibiotics tomorrow if she continues to get better MRSA screen, cultures have been negative Overall prognosis is poor
--- NOTE | 2018-07-02 19:32 | PN ---
DATE: 07/02/2018 ONCOLOGY PROGRESS NOTE LOCATION: The patient is in room 264, bed 2. PROBLEMS: A 68-year-old female with stage IIIB non-small cell carcinoma of the lung, history of stage II carcinoma of the colon, status post resection, currently on crizotinib for her non-small cell CA of the lung, admitted to the hospital, progressive shortness of breath, wheezing and mid-epigastric discomfort. In the ER, was worked up for PE with CT angio which shows possible questionable infection in addition to significant mediastinal and hilar disease and right lower lobe infiltrate associated with her primary lung process which is an adenocarcinoma, proven by biopsy and clinically staged as stage IIIB. The patient is currently on antibiotics. She is on IV Lasix. Along with this, the patient is also on respiratory bronchodilators and low-dose steroids. The patient has been improving significantly since admission with the hypoxemia improving and the shortness of breath improving as well. The patient had one episode of atrial fibrillation early this morning with PVCs which reverted back to normal sinus rhythm, not necessitating any intervention at this point in time as far as anticoagulation is concerned. Subjectively, patient appears to be more comfortable. She is sitting out of bed in a chair today, not short of breath as she was yesterday, still has some upper extremity swelling, but the swelling appears to be less than yesterday. PHYSICAL EXAMINATION VITAL SIGNS: T-max is 97.2, pulse on the monitor is 81, respirations 16 to 18, blood pressure is 130/70, O2 sat on high-flow delivery system is 95%. HEENT: Head is normocephalic, atraumatic. Conjunctivae pale. Sclerae anicteric. Pupils are equally reactive to light and accommodation. Examination of the oropharynx reveals no oropharyngeal lesions. Tongue is moist. No ulcerations are noted. CARDIOVASCULAR: Reveals PMI in the fifth intercostal space. S1, S2 normal with possible S3 gallop. LUNGS: Reveals decreased breath sounds at the bases with crackles and bilateral wheezes with decreased airway sounds in the upper lobe of the lung, posteriorly on the right side. ABDOMEN: Protuberant, nontender. Liver and spleen not palpable. No rebound, rigidity or guarding is noted. EXTREMITIES: The patient has moderate edema present without any cyanosis or clubbing. Homans sign is negative. SKIN: Reveals no skin rashes. The patient has a brisk suntan from her recent visit to [place]. NEUROLOGIC: Reveals higher functions to be normal. No focal deficits are noted. GENITOURINARY/RECTAL: Deferred. LABORATORY DATA: Labs from today were reviewed. Lab data from today reveals the following; the patient's white count is 12.9, probably related to the steroids, hemoglobin is 9.4, hematocrit 32.6, platelet count of 733,000. Chemistry revealed electrolytes to be normal. BUN is 21, creatinine is 0.8. Anion gap is 7. Blood sugar is 127. Total bili is 0.4, AST is 40, ALT is 55, alkaline phosphatase is 106. Troponins have decreased now to 0.8. It was as high as 2.77 on 06/28/2018 and on 06/30/2018, it was down to 0.8. DIAGNOSTIC DATA: The patient's venous Doppler studies of the upper extremities and the neck done yesterday were negative. ASSESSMENT NOTES AND PLAN: The patient is slowly improving. As far as her breathing symptoms are concerned, there could have been a component of co-existing infections. I spoke to . We are planning to taper the antibiotics to oral medications by Tuesday. In the meantime, vancomycin has been discontinued. We are still waiting for some of the other tests to come back. I spoke to Dr. Parra, field observer. We are tapering the steroids gradually and we are looking into other avenues to see how we can best control her tumor in the right upper lobe of the lung. Localized radiation, bronchoscopy with stent placement are other alternatives. The patient has been on crizotinib only for three months. Question is should we continue the crizotinib along with local radiation or at this point in time, switch her from crizotinib to one of the newer drugs such as brigatinib or any of the other modifications. Options with immunotherapy and chemotherapy are also on the books at this time as far as treatment for her lung tumor is concerned. The patient had demand ischemia and definite troponin elevation on admission compounded by the fact that the lung issues could have put a strain on her heart which is gradually improving. I spoke to Dr. Fong who said that maximum cardiac management would be the most appropriate thing to do at this time without any other active intervention. No need for anticoagulation at this time. The patient may need to stay on aspirin-based therapy. The patient's medications were reviewed and they are unchanged. The patient is on aspirin 81 mg daily. The patient is on Brovana 15 mcg inhale every 12 hours, doxycycline 100 mg by mouth every 12 hours, albuterol and ipratropium DuoNebs 3 mg/0.5 mg every two hours as needed. The patient is on Lasix 20 mg IV every 12 hours. Calcium Lipitor 40 mg daily, metoprolol tartrate 25 mg two times a day. The patient is on Lovenox 40 mg subcutaneously every 12 hours. The patient will continue her methylprednisolone, Solu-Medrol 40 IV every 12 hours. Levothyroxine is on hold. Plan, I had a detailed discussion with the patient. Patient is going to resume her crizotinib today. The family is going to bring it from home and she is on daptomycin twice a day along with the other medications she is continually taking at this point in time. I explained all the options to the patient as well and to her daughter regarding her further treatment plans in the near future. The patient has an appointment to see the other doctors including Dr. Hobbs at [place] in the very near future. As far as the gallbladder is concerned, we have put that on hold. She has a followup with Dr. Rosado as well to ascertain what needs to be done in the very near future. Currently, our plans are to maximize her treatment as far as the breathing is concerned including probably the need for home oxygen if necessary as determined by Pulmonology. Time spent with the patient is greater than 45 minutes and more than 50% of the time in [id number] contact. Please make a note this is a complex patient with multiple comorbid medical issues. Gabby Adames MD (Delete this signature block when dictator is a preceptor.) cc: MD Mallory (Delete if not dictated.)
[2018-07-03] MEDS: Albuterol-Ipratrop 3 mg / 0.5 (3 ml) UD IH SCH ×5 (01:10→19:52)
[2018-07-03] MEDS: Meropenem IV 1 gm in NS 1 GM/50 ML BAG IVPB SCH ×2 (05:10→13:48)
[2018-07-03 06:17] LABS: BASO # 0.01 K/mm3 (0.0-2.0); BASO % 0.1 % (0.0-3.0); GRAN # 11.13 (1.4-6.5); GRAN % 88.4 % (50.0-68.0); HEMOGLOBIN 9.5 g/dL (12.0-16.0); LYMPH # 0.8 (1.2-3.4); LYMPH % 6.1 % (22.0-35.0); MEAN CELL VOLUME 69.5 fl (80.0-105.0); MEAN CORPUSCULAR HGB CONC 28.8 g/dl (31.0-37.0); MEAN PLATELET VOLUME 9.1 fl (7.0-11.0); MONO # 0.7 (0.1-0.6); MONO % 5.4 % (1.0-6.0); RBC 4.75 10^6/uL (3.5-6.1); RED CELL DISTRIBUTION WIDTH 18.4 % (11.5-14.5); WHITE BLOOD COUNT 12.6 10^3/uL (4.5-11.0)
[2018-07-03 06:45] LABS: ALB/GLOB RATIO 0.8 (1.1-1.8); ALBUMIN 2.6 g/dL (3.0-4.8); ALT/SGPT 50 U/L (7-56); AST/SGOT 37 U/L (14-36); BLOOD UREA NITROGEN 25 mg/dL (7-21); CALCIUM 8.7 mg/dL (8.4-10.5); GFR NON-AFRICAN AMERICAN > 60
--- NOTE | 2018-07-03 06:55 | CP.PCM.PN ---
Subjective - Date & Time of Evaluation Date of Evaluation: 07/03/18 Time of Evaluation: 11:45 - Subjective Subjective: Chito Stephenson-Internal Medicine Resident- Hematology Oncology Progress Note Subjective: Patient seen and examined at bedside. No acute events overnight. States SOB has improved relative to baseline. Offers no new complaints at this time. Denies fever, chills, chest pain, nausea/vomiting. 12 Point ROS negative except as indicated in HPI Physical Examination: - Constitutional Appears: Non-toxic, No Acute Distress - Head Exam Head Exam: ATRAUMATIC, NORMOCEPHALIC - Eye Exam Eye Exam: EOMI, Normal appearance - ENT Exam ENT Exam: Mucous Membranes Moist - Neck Exam Neck Exam: Full ROM, Normal Inspection. absent: Lymphadenopathy, Meningismus, Tenderness, Thyromegaly - Respiratory Exam Respiratory Exam: wheezing right lower lobe, NORMAL BREATHING PATTERN. absent: Accessory Muscle Use, Rales, Rhonchi, Wheezes, Respiratory Distress - Cardiovascular Exam Cardiovascular Exam: RRR, +S1, +S2 - GI/Abdominal Exam GI & Abdominal Exam: Soft, Normal Bowel Sounds. absent: Distended, Firm, Guarding, Rigid, Tenderness - Extremities Exam Extremities Exam: Pedal Edema (Minimal trace pitting edema bilaterally extending to ankle). absent: Calf Tenderness, Joint Swelling - Neurological Exam Neurological Exam: Alert, Awake, Normal Gait, Oriented x3 - Psychiatric Exam Psychiatric exam: Normal Affect, Normal Mood - Skin Skin Exam: Dry, Intact, Normal Color, Warm Assessment and Plan: 68 year old female with a past medical history significant for NSCLC on Xalkori, colonic adenocarcinoma s/p partial colectomy, and obesity who presented with SOB and lower extremity edema after returning home [place]. Plan: Right Sided HCAP vs. COPD Exacerbation -See Chest CT and Chest X-Ray reports - antibiotics as per ID -Continue Solumedrol IVP as ordered- titrate down as per pulm -Continue Duonebs scheduled and PRN as ordered -Continue Brovana and Pulmicort -Continue supplemental high flow oxygen -Continue Zofran PRN for N/V -Will discuss with pulm to see if patient requires home oxygen and potential for titrating down high flow oxygen -ID and Pulmonology consulted, all recommendations appreciated NSCLC - continue on Xalkori 250mg BID (home medication) Elevated Troponins with CAD -Likely secondary to demand ischemia -Continue low dose ASA and Metoprolol -Discontinued therapeutic lovenox -Cardiology consulted, all recommendations appreciated Lower Extremity Edema -See LE venous doppler US report -Continue Lasix IVP History of HLD -Continue Lipitor History of Hypothyroidism -Continue home Synthroid History of Gallstones - will discuss with GI for starting patient on Ursodiol GI Prophylaxis: Protonix DVT Prophylaxis: SCD's Diet: Heart Healthy Code Status: Full Code Patient case discussed with and plan approved by attending physician, Dr. Adames. Objective - Vital Signs/Intake and Output Vital Signs (last 24 hours): Temp Pulse Resp BP Pulse Ox 97.4 F L 53 L 19 168/83 H 96 07/03/18 06:00 07/03/18 06:00 07/03/18 06:00 07/03/18 06:00 07/02/18 22:00 Intake and Output: 07/02/18 07/03/18 18:59 06:59 Intake Total 540 Balance 540 - Medications Medications: Current Medications Albuterol/Ipratropium (Duoneb 3 Mg/0.5 Mg (3 Ml) Ud) 3 ml IH [id number] [facility] Last Admin: 07/03/18 01:10 Dose: 3 ml Albuterol/Ipratropium (Duoneb 3 Mg/0.5 Mg (3 Ml) Ud) 3 ml IH Q2H PRN PRN Reason: Shortness of Breath Arformoterol Tartrate (Brovana) 15 mcg IH [id number] [facility] Last Admin: 07/02/18 20:00 Dose: 15 mcg Aspirin (Aspirin Chewable) 81 mg PO DAILY [facility] Last Admin: 07/02/18 10:36 Dose: 81 mg Atorvastatin Calcium (Lipitor) 40 mg PO DAILY [facility] Last Admin: 07/02/18 10:36 Dose: 40 mg Budesonide (Pulmicort Respules) 0.5 mg IH [id number] [facility] Last Admin: 07/02/18 20:01 Dose: 0.5 mg Doxycycline Hyclate (Doryx) 100 mg PO Q12 [facility]; Protocol Last Admin: 07/02/18 21:49 Dose: 100 mg Enoxaparin Sodium (Lovenox) 114 mg SC Q12 [facility]; Protocol Last Admin: 07/02/18 21:50 Dose: 114 mg Furosemide (Lasix) 20 mg IVP Q12 [facility] Last Admin: 07/02/18 21:52 Dose: 20 mg Meropenem (Merrem Iv 1 Gm Premix) 1 gm in 50 mls @ 100 mls/hr IVPB Q8 [facility]; Protocol Stop: 07/08/18 07:04 Last Admin: 07/03/18 05:10 Dose: 100 mls/hr Levothyroxine Sodium (Synthroid) 125 mcg PO 0600 [facility] Last Admin: 06/29/18 05:36 Dose: 125 mcg Methylprednisolone (Solu-Medrol) 30 mg IVP Q12 [facility] Metoprolol Tartrate (Lopressor) 25 mg PO BID [facility] Last Admin: 07/02/18 10:36 Dose: 25 mg Ondansetron HCl (Zofran Inj) 4 mg IVP Q4H PRN PRN Reason: Nausea/Vomiting - Labs Labs: 07/03/18 05:20 07/03/18 05:20 PT 16.7 SECONDS (9.4-12.5) H 06/28/18 20:00 INR 1.45 06/28/18 20:00 APTT 25.3 Seconds (25.1-36.5) 06/28/18 20:00
[2018-07-03] MEDS: Arformoterol 15 mcg/2 ml Inh Sol IH SCH ×2 (07:34→19:52)
[2018-07-03] MEDS: Budesonide 0.5 mg/2 ml Inhal Susp UD IH SCH ×2 (07:34→19:52)
--- NOTE | 2018-07-03 08:04 | CP.PCM.PN ---
Subjective - Date & Time of Evaluation Date of Evaluation: 06/30/18 Time of Evaluation: 07:00 - Subjective Subjective: Stable on 2R now. Still CLINE,minimal activities. No CP. Getting resp tx. V/S noted. RSR PE: Lungs: rhonchi Cor.: S1S2 Abd.: soft Ext.: no edema Neuro.: alert I/O = 1570/850 Labs: H/H 9.2/30.9, trop 1.00 BC X 2 NG at 24 hrs. ECG 06/29: AF (new), NSSTW changes Echo: prelim> NL LV fx. See report Objective - Vital Signs/Intake and Output Vital Signs (last 24 hours): Temp Pulse Resp BP Pulse Ox 98.5 F 70 20 148/80 96 06/30/18 06:18 06/30/18 06:18 06/30/18 06:18 06/30/18 06:18 06/30/18 06:18 Intake and Output: 06/30/18 06/30/18 06:59 18:59 Intake Total 340 Output Total 350 Balance -10 - Medications Medications: Current Medications Albuterol/Ipratropium (Duoneb 3 Mg/0.5 Mg (3 Ml) Ud) 3 ml IH [id number] [facility] Last Admin: 06/30/18 07:12 Dose: 3 ml Albuterol/Ipratropium (Duoneb 3 Mg/0.5 Mg (3 Ml) Ud) 3 ml IH Q2H PRN PRN Reason: Shortness of Breath Arformoterol Tartrate (Brovana) 15 mcg IH [id number] [facility] Last Admin: 06/30/18 07:11 Dose: 15 mcg Aspirin (Aspirin Chewable) 81 mg PO DAILY [facility] Last Admin: 06/29/18 11:08 Dose: 81 mg Atorvastatin Calcium (Lipitor) 40 mg PO DAILY [facility] Last Admin: 06/29/18 11:09 Dose: 40 mg Budesonide (Pulmicort Respules) 0.5 mg IH [id number] [facility] Last Admin: 06/30/18 07:12 Dose: 0.5 mg Doxycycline Hyclate (Doryx) 100 mg PO Q12 [facility]; Protocol Last Admin: 06/29/18 22:23 Dose: 100 mg Enoxaparin Sodium (Lovenox) 110 mg SC Q12H [facility]; Protocol Last Admin: 06/29/18 22:17 Dose: 110 mg Furosemide (Lasix) 20 mg IVP Q12 [facility] Last Admin: 06/29/18 22:24 Dose: 20 mg Vancomycin HCl (Vancomycin 1gm) 1 gm in 250 mls @ 167 mls/hr IVPB Q12H [facility]; Protocol Last Admin: 06/29/18 22:24 Dose: 167 mls/hr Meropenem (Merrem Iv 1 Gm Premix) 1 gm in 50 mls @ 100 mls/hr IVPB Q8 [facility]; Protocol Stop: 07/08/18 07:04 Last Admin: 06/30/18 06:42 Dose: 100 mls/hr Levothyroxine Sodium (Synthroid) 125 mcg PO 0600 [facility] Last Admin: 06/29/18 05:36 Dose: 125 mcg Methylprednisolone (Solu-Medrol) 40 mg IVP Q8H [facility] Last Admin: 06/30/18 06:42 Dose: 40 mg Ondansetron HCl (Zofran Inj) 4 mg IVP Q4H PRN PRN Reason: Nausea/Vomiting - Labs Labs: 06/30/18 05:30 06/30/18 05:30 PT 16.7 SECONDS (9.4-12.5) H 06/28/18 20:00 INR 1.45 06/28/18 20:00 APTT 25.3 Seconds (25.1-36.5) 06/28/18 20:00 Assessment and Plan - Assessment and Plan (Free Text) Assessment: Dyspnea Pneumonia/COPD/NSC lung cancer on oral chemo + trops/R/O NSTEMI/ Probably demand ischemia (NL LV fx. on echo) PAF (AF on yesterdays ECG) Anemia Hypothyroidism Gall Stones GERD Former Smoker Plan: AB/respiratory Tx. IV Lasix Cultures pending. Metoprolol 25 BID If recur AF, A/C to be considered. OOB to chair as efren Monitor: labs, trops, TSH, i/o, sats, cultures, etc. As per Pulm., Onc., ID, GI.
--- NOTE | 2018-07-03 08:18 | CP.PCM.PN ---
Subjective - Date & Time of Evaluation Date of Evaluation: 07/03/18 Time of Evaluation: 07:00 - Subjective Subjective: Stable on 2R now. Less CLINE and edema. No CP. She feels better. Was OOB to chair. V/S noted. RSR PE: Lungs: rhonchi Cor.: S1S2 Abd.: soft Ext.: no edema Neuro.: alert I/O = 1570/850 Labs: PL CT= 733,000, WBC = 12,600 BC X 2 NG at 4 days ECG 06/29: AF (new), NSSTW changes Echo: NL LV fx. Mod TR and PH. Objective - Vital Signs/Intake and Output Vital Signs (last 24 hours): Temp Pulse Resp BP Pulse Ox 97.4 F L 53 L 19 168/83 H 96 07/03/18 06:00 07/03/18 06:00 07/03/18 06:00 07/03/18 06:00 07/02/18 22:00 Intake and Output: 07/03/18 07/03/18 06:59 18:59 Intake Total 540 Balance 540 - Medications Medications: Current Medications Albuterol/Ipratropium (Duoneb 3 Mg/0.5 Mg (3 Ml) Ud) 3 ml IH [id number] [facility] Last Admin: 07/03/18 07:34 Dose: 3 ml Albuterol/Ipratropium (Duoneb 3 Mg/0.5 Mg (3 Ml) Ud) 3 ml IH Q2H PRN PRN Reason: Shortness of Breath Arformoterol Tartrate (Brovana) 15 mcg IH [id number] [facility] Last Admin: 07/03/18 07:34 Dose: 15 mcg Aspirin (Aspirin Chewable) 81 mg PO DAILY [facility] Last Admin: 07/02/18 10:36 Dose: 81 mg Atorvastatin Calcium (Lipitor) 40 mg PO DAILY [facility] Last Admin: 07/02/18 10:36 Dose: 40 mg Budesonide (Pulmicort Respules) 0.5 mg IH [id number] [facility] Last Admin: 07/03/18 07:34 Dose: 0.5 mg Doxycycline Hyclate (Doryx) 100 mg PO Q12 [facility]; Protocol Last Admin: 07/02/18 21:49 Dose: 100 mg Enoxaparin Sodium (Lovenox) 114 mg SC Q12 [facility]; Protocol Last Admin: 07/02/18 21:50 Dose: 114 mg Furosemide (Lasix) 20 mg IVP Q12 [facility] Last Admin: 07/02/18 21:52 Dose: 20 mg Meropenem (Merrem Iv 1 Gm Premix) 1 gm in 50 mls @ 100 mls/hr IVPB Q8 [facility]; Protocol Stop: 07/08/18 07:04 Last Admin: 07/03/18 05:10 Dose: 100 mls/hr Levothyroxine Sodium (Synthroid) 125 mcg PO 0600 [facility] Last Admin: 06/29/18 05:36 Dose: 125 mcg Methylprednisolone (Solu-Medrol) 30 mg IVP Q12 [facility] Metoprolol Tartrate (Lopressor) 25 mg PO BID [facility] Last Admin: 07/02/18 10:36 Dose: 25 mg Ondansetron HCl (Zofran Inj) 4 mg IVP Q4H PRN PRN Reason: Nausea/Vomiting - Labs Labs: 07/03/18 05:20 07/03/18 05:20 PT 16.7 SECONDS (9.4-12.5) H 06/28/18 20:00 INR 1.45 06/28/18 20:00 APTT 25.3 Seconds (25.1-36.5) 06/28/18 20:00 Assessment and Plan - Assessment and Plan (Free Text) Assessment: Dyspnea Pneumonia/COPD/NSC lung cancer on oral chemo + trops/R/O NSTEMI/ Probably demand ischemia (NL LV fx. on echo) PAF (AF on yesterdays ECG) Anemia Hypothyroidism Gall Stones GERD Former Smoker Moderate TR and PH on echo Thrombocytosis. Plan: AB/respiratory Tx. 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 OOB to chair as efren Monitor: labs, i/o, sats, cultures, etc. As per Pulm., Onc., ID, GI and medical Team
--- NOTE | 2018-07-03 08:18 | PN ---
PULMONARY NOTE DATE: 07/03/2018 SUBJECTIVE: The patient appears comfortable this morning. She is not short of breath at rest. PHYSICAL EXAMINATION: VITAL SIGNS: Temperature is 97.4, pulse 53, respirations 19, blood pressure 168/83 and oxygen saturation on high-flow delivery is 96%. HEENT: Normocephalic and atraumatic. No JVD. CARDIOVASCULAR: Positive S1 and S2. Questionable S3 gallop. LUNGS: Decreased breath sounds at the bases with crackles. Less rhonchi. No wheezing. EXTREMITIES: Moderate edema remains. No cyanosis or clubbing. Calves are nontender to palpation. GI: Abdomen is soft, nontender and nondistended. Bowel sounds are positive. SKIN: No acute rash. NEUROLOGIC: Exam limited at the present time. IMPRESSION: 1. Advanced/extensive non-small cell lung cancer. 2. Advanced chronic obstructive pulmonary disease. 3. Acute congestive heart failure. 4. Non-ST elevation myocardial infarction. 5. Bilateral pleural effusions. 6. Anemia. PLAN: The patient appears comfortable this morning. She is not short of breath at rest. She is less dyspneic on exertion. She does state to feeling much better overall. I did discuss the case with the night nurse at length. The night nurse stated that the patient had a very good night. On physical exam, her bronchospasm continues to slowly resolve. In addition, the alveolar-arterial gradient also continues to lessen. I will continue the current nebulizer treatments and decrease the intravenous steroids this morning. I would continue with the treatment for acute congestive heart failure and myocardial infarction as per Cardiology. The patient remains on Lasix and therapeutic Lovenox. The patient also remains on antibiotic therapy. There are no temperatures noted. The leukocytosis is resolving. The clinical status of the patient is significantly improved - compared to the initial presentation. However, unfortunately, the future status/prognosis for this patient remains very guarded at best/poor. I did have a long talk with Dr. dAames, yesterday. We did speak about possible right mainstem bronchial stenting(at [facility]). At this point in time, the right hilar mass is impinging on the right mainstem bronchus. However, there is no significant atelectasis on CAT scanning or chest x-ray.. Possibly some local radiation to the area could help open up the bronchus, and buy us some time until Dr. Adames's therapy can take full effect. Dr. Adames is also considering a possible change in his regimen. I am sure there will be multiple conversations in the near future. I did discuss the above with the patient at length this morning. Harris Parra MD MTDD
[2018-07-03] MEDS: Enoxaparin 120 mg Syringe SC SCH (10:03)
[2018-07-03] MEDS: MethylPREDNISolone 40 mg Vial IVP SCH ×2 (10:04→21:32)
--- NOTE | 2018-07-03 13:18 | CP.PCM.PN ---
Subjective - Date & Time of Evaluation Date of Evaluation: 07/03/18 Time of Evaluation: 10:25 - Subjective Subjective: Breathing better, cough is much improved, no fevers. Objective - Vital Signs/Intake and Output Vital Signs (last 24 hours): Temp Pulse Resp BP Pulse Ox 97.3 F L 66 21 133/71 95 07/02/18 06:00 07/02/18 10:36 07/02/18 08:46 07/02/18 10:37 07/02/18 06:00 Intake and Output: 07/02/18 07/02/18 06:59 18:59 Intake Total 420 Balance 420 - Medications Medications: Current Medications Albuterol/Ipratropium (Duoneb 3 Mg/0.5 Mg (3 Ml) Ud) 3 ml IH [id number] [facility] Last Admin: 07/02/18 07:21 Dose: 3 ml Albuterol/Ipratropium (Duoneb 3 Mg/0.5 Mg (3 Ml) Ud) 3 ml IH Q2H PRN PRN Reason: Shortness of Breath Arformoterol Tartrate (Brovana) 15 mcg IH [id number] [facility] Last Admin: 07/02/18 07:20 Dose: 15 mcg Aspirin (Aspirin Chewable) 81 mg PO DAILY [facility] Last Admin: 07/02/18 10:36 Dose: 81 mg Atorvastatin Calcium (Lipitor) 40 mg PO DAILY [facility] Last Admin: 07/02/18 10:36 Dose: 40 mg Budesonide (Pulmicort Respules) 0.5 mg IH [id number] [facility] Last Admin: 07/02/18 07:21 Dose: 0.5 mg Doxycycline Hyclate (Doryx) 100 mg PO Q12 [facility]; Protocol Last Admin: 07/02/18 10:36 Dose: 100 mg Enoxaparin Sodium (Lovenox) 114 mg SC Q12 [facility]; Protocol Last Admin: 07/02/18 10:35 Dose: 114 mg Furosemide (Lasix) 20 mg IVP Q12 [facility] Last Admin: 07/02/18 10:37 Dose: 20 mg Meropenem (Merrem Iv 1 Gm Premix) 1 gm in 50 mls @ 100 mls/hr IVPB Q8 [facility]; Protocol Stop: 07/08/18 07:04 Last Admin: 07/02/18 05:58 Dose: 100 mls/hr Levothyroxine Sodium (Synthroid) 125 mcg PO 0600 [facility] Last Admin: 06/29/18 05:36 Dose: 125 mcg Methylprednisolone (Solu-Medrol) 40 mg IVP Q12 [facility] Last Admin: 07/02/18 10:37 Dose: 40 mg Metoprolol Tartrate (Lopressor) 25 mg PO BID [facility] Last Admin: 07/02/18 10:36 Dose: 25 mg Ondansetron HCl (Zofran Inj) 4 mg IVP Q4H PRN PRN Reason: Nausea/Vomiting - Labs Labs: 07/02/18 05:00 07/02/18 05:00 PT 16.7 SECONDS (9.4-12.5) H 06/28/18 20:00 INR 1.45 06/28/18 20:00 APTT 25.3 Seconds (25.1-36.5) 06/28/18 20:00 - Constitutional Appears: Chronically Ill - Head Exam Head Exam: NORMAL INSPECTION - Respiratory Exam Respiratory Exam: Decreased Breath Sounds - Cardiovascular Exam Cardiovascular Exam: +S1, +S2 - GI/Abdominal Exam GI & Abdominal Exam: Soft. absent: Tenderness Assessment and Plan - Assessment and Plan (Free Text) Plan: Assessment probable right sided HCAP associated with lung mass lung cancer, non-small cell, stage 4 morbid obesity with BMI 40 dyslipidemia colon cancer Plan on Merrem and Doxycycline day 5 for 4-7 days - as discussed with Dr. Adames - may be able to switch to PO Vantin and Doxycyclinesince she continues to get better MRSA screen, cultures have been negative Overall prognosis is poor
--- NOTE | 2018-07-03 20:18 | US ---
HISTORY: Arm pain and swelling. Evaluate for deep venous thrombosis. PHYSICIAN(S): Gus Jimenez MD. FINDINGS: The visualized internal jugular veins are sonographically normal and compressible. No evidence of obstruction or thrombus this is seen. The visualized segments of the subclavian veins are patent with normal waveforms. No sonographic evidence of obstruction or thrombosis is seen. The visualized deep venous systems of both upper extremities proximally are sonographically normal and compressible. IMPRESSION: 1. No sonographic evidence for deep venous thrombosis in the visualized segments of both upper strategies.
[2018-07-03] MEDS: Cefpodoxime (Vantin) 200 mg Tab PO SCH (21:35)
[2018-07-04] MEDS: Albuterol-Ipratrop 3 mg / 0.5 (3 ml) UD IH SCH ×4 (03:25→20:03)
--- NOTE | 2018-07-04 06:31 | CP.PCM.PN ---
Subjective - Date & Time of Evaluation Date of Evaluation: 07/04/18 Time of Evaluation: 08:00 - Subjective Subjective: Chito Stephenson-Internal Medicine Resident- Hematology Oncology Progress Note Subjective: Patient seen and examined at bedside. No acute events overnight. States SOB has improved relative to baseline. Offers no new complaints at this time. Denies fever, chills, chest pain, nausea/vomiting. 12 Point ROS negative except as indicated in HPI Physical Examination: - Constitutional Appears: Non-toxic, No Acute Distress - Head Exam Head Exam: ATRAUMATIC, NORMOCEPHALIC - Eye Exam Eye Exam: EOMI, Normal appearance - ENT Exam ENT Exam: Mucous Membranes Moist - Neck Exam Neck Exam: Full ROM, Normal Inspection. absent: Lymphadenopathy, Meningismus, Tenderness, Thyromegaly - Respiratory Exam Respiratory Exam: wheezing right lower lobe, NORMAL BREATHING PATTERN. absent: Accessory Muscle Use, Rales, Rhonchi, Wheezes, Respiratory Distress - Cardiovascular Exam Cardiovascular Exam: RRR, +S1, +S2 - GI/Abdominal Exam GI & Abdominal Exam: Soft, Normal Bowel Sounds. absent: Distended, Firm, Guarding, Rigid, Tenderness - Extremities Exam Extremities Exam: Pedal Edema (Minimal trace pitting edema bilaterally extending to ankle). absent: Calf Tenderness, Joint Swelling - Neurological Exam Neurological Exam: Alert, Awake, Normal Gait, Oriented x3 - Psychiatric Exam Psychiatric exam: Normal Affect, Normal Mood - Skin Skin Exam: Dry, Intact, Normal Color, Warm Assessment and Plan: 68 year old female with a past medical history significant for NSCLC on Xalkori, colonic adenocarcinoma s/p partial colectomy, and obesity who presented with SOB and lower extremity edema after returning home [place]. Right Sided HCAP vs. COPD Exacerbation - See Chest CT and Chest X-Ray reports - Antibiotics as per ID- c/w doxy and vantin - Continue Solumedrol IVP as ordered- titrate down as per pulm - Continue Duonebs scheduled and PRN as ordered - Continue Brovana and Pulmicort - Continue supplemental high flow oxygen - Continue Zofran PRN for N/V - titrating down high flow oxygen - home oxygen may be required if patient oxygenation becomes less than 88% on RA - ID and Pulmonology consulted, all recommendations appreciated NSCLC - continue on Xalkori 250mg BID (home medication) Elevated Troponins with CAD - Likely secondary to demand ischemia - Continue low dose ASA and Metoprolol - Cardiology consulted, all recommendations appreciated Lower Extremity Edema - See LE venous doppler US report - Continue Lasix IVP History of HLD - Continue Lipitor History of Hypothyroidism - Continue home Synthroid History of Gallstones - will discuss with GI for starting patient on Ursodiol Prophylaxis - GI Prophylaxis: Protonix - DVT Prophylaxis: SCD's Patient case discussed with and plan approved by attending physician, Dr. Adames. Objective - Vital Signs/Intake and Output Vital Signs (last 24 hours): Temp Pulse Resp BP Pulse Ox 97.6 F 51 L 19 140/69 95 07/04/18 00:01 07/04/18 02:00 07/04/18 00:01 07/04/18 00:01 07/04/18 00:01 Intake and Output: 07/03/18 07/04/18 18:59 06:59 Intake Total 620 Balance 620 - Medications Medications: Current Medications Albuterol/Ipratropium (Duoneb 3 Mg/0.5 Mg (3 Ml) Ud) 3 ml IH [id number] [facility] Last Admin: 07/04/18 03:25 Dose: 3 ml Albuterol/Ipratropium (Duoneb 3 Mg/0.5 Mg (3 Ml) Ud) 3 ml IH Q2H PRN PRN Reason: Shortness of Breath Arformoterol Tartrate (Brovana) 15 mcg IH [id number] [facility] Last Admin: 07/03/18 19:52 Dose: 15 mcg Aspirin (Aspirin Chewable) 81 mg PO DAILY [facility] Last Admin: 07/03/18 09:58 Dose: 81 mg Atorvastatin Calcium (Lipitor) 40 mg PO DAILY [facility] Last Admin: 07/03/18 10:02 Dose: 40 mg Budesonide (Pulmicort Respules) 0.5 mg IH [id number] [facility] Last Admin: 07/03/18 19:52 Dose: 0.5 mg Cefpodoxime Proxetil (Vantin) 200 mg PO Q12 [facility]; Protocol Last Admin: 07/03/18 21:35 Dose: 200 mg Doxycycline Hyclate (Doryx) 100 mg PO Q12 [facility]; Protocol Last Admin: 07/03/18 21:34 Dose: 100 mg Furosemide (Lasix) 20 mg IVP Q12 [facility] Last Admin: 07/03/18 21:33 Dose: 20 mg Levothyroxine Sodium (Synthroid) 125 mcg PO 0600 [facility] Last Admin: 06/29/18 05:36 Dose: 125 mcg Methylprednisolone (Solu-Medrol) 30 mg IVP Q12 [facility] Last Admin: 07/03/18 21:32 Dose: 30 mg Metoprolol Tartrate (Lopressor) 25 mg PO BID [facility] Last Admin: 07/03/18 18:02 Dose: 25 mg Ondansetron HCl (Zofran Inj) 4 mg IVP Q4H PRN PRN Reason: Nausea/Vomiting - Labs Labs: 07/03/18 05:20 07/03/18 05:20 PT 16.7 SECONDS (9.4-12.5) H 06/28/18 20:00 INR 1.45 06/28/18 20:00 APTT 25.3 Seconds (25.1-36.5) 06/28/18 20:00
[2018-07-04 06:34] LABS: BASO # 0.01 K/mm3 (0.0-2.0); BASO % 0.1 % (0.0-3.0); GRAN # 13.99 (1.4-6.5); GRAN % 91.1 % (50.0-68.0); HEMOGLOBIN 9.3 g/dL (12.0-16.0); LYMPH # 0.9 (1.2-3.4); LYMPH % 5.9 % (22.0-35.0); MEAN CELL VOLUME 68.6 fl (80.0-105.0); MEAN CORPUSCULAR HEMOGLOBIN 20.1 pg (25.0-35.0); MEAN CORPUSCULAR HGB CONC 29.3 g/dl (31.0-37.0); MEAN PLATELET VOLUME 9.4 fl (7.0-11.0); MONO # 0.5 (0.1-0.6); MONO % 2.9 % (1.0-6.0); PLATELET COUNT 700 10^3/uL (120.0-450.0); RBC 4.62 10^6/uL (3.5-6.1); RED CELL DISTRIBUTION WIDTH 18.3 % (11.5-14.5); WHITE BLOOD COUNT 15.4 10^3/uL (4.5-11.0)
--- NOTE | 2018-07-04 07:28 | PN ---
DATE: 07/04/2018 PULMONARY NOTE DICTATION SUBJECTIVE: The patient appears comfortable this morning. She is not short of breath at rest. PHYSICAL EXAMINATION: VITAL SIGNS: Temperature is 97.6, pulse 58, respirations 18/20, blood pressure 145/82. Oxygen saturation on nasal cannula is 94-95%. HEENT: Normocephalic, atraumatic. No JVD. CARDIOVASCULAR: Positive S1, S2. Questionable S3 gallop. LUNGS: Improved breath sounds at bases with less crackles. Much less rhonchi. No wheezing. EXTREMITIES: Less edema. No cyanosis, no clubbing. Calves are nontender to palpation. GI: Abdomen is soft, nontender and nondistended. Bowel sounds are positive. SKIN: No acute rash. NEUROLOGIC: Exam limited at the present time. IMPRESSION: 1. Advanced/extensive non-small cell lung cancer. 2. Advanced chronic obstructive pulmonary disease. 3. Acute congestive heart failure. 4. [id number] myocardial infarction. 5. Bilateral pleural effusions. 6. Anemia. PLAN: The patient appears very comfortable this morning. She is not short of breath at rest. She is less dyspneic on exertion. She does state to feeling much better overall. On physical exam, her bronchospasm continues to slowly resolve. In addition, the alveolar-arterial gradient also continues to resolve. The patient has now been transitioned off of high-flow delivery - to nasal cannula. I will continue with the current nebulizer treatments and low-dose intravenous steroids (decreased yesterday) for now. The patient has been transitioned to oral antibiotic therapy. Hopefully, I can transition the patient to oral prednisone in the morning. I would continue with the treatment for congestive heart failure, and myocardial infarction as per Cardiology. Input by Dr. Delarosa is noted. Clinical status of the patient is certainly improved - compared to the initial presentation. She does remain very, very guarded overall. I will discuss the above with the attending physician. Harris Parra MD DAVID
[2018-07-04 07:36] LABS: ALB/GLOB RATIO 0.8 (1.1-1.8); ALBUMIN 2.5 g/dL (3.0-4.8); ALT/SGPT 48 U/L (7-56); AST/SGOT 40 U/L (14-36); BLOOD UREA NITROGEN 21 mg/dL (7-21); CALCIUM 8.3 mg/dL (8.4-10.5); GFR NON-AFRICAN AMERICAN > 60
[2018-07-04] MEDS: Arformoterol 15 mcg/2 ml Inh Sol IH SCH ×2 (07:56→20:03)
[2018-07-04] MEDS: Budesonide 0.5 mg/2 ml Inhal Susp UD IH SCH ×2 (07:57→20:03)
--- NOTE | 2018-07-04 08:02 | CP.PCM.PN ---
Subjective - Date & Time of Evaluation Date of Evaluation: 07/04/18 Time of Evaluation: 07:00 - Subjective Subjective: Stable on 2R. Less CLINE and edema. No CP. She feels better. OOB to chair now. Brief amb. with nasal O2 yesterday. V/S noted. RSR PE: Lungs: rhonchi Cor.: S1S2 Abd.: soft Ext.: no edema Neuro.: alert I/O = 1570/850 Labs: PL CT= 733,000, WBC = 12,600 BC X 2 NG at 4 days ECG 06/29: AF (new), NSSTW changes Echo: NL LV fx. Mod TR and PH. Objective - Vital Signs/Intake and Output Vital Signs (last 24 hours): Temp Pulse Resp BP Pulse Ox 97.6 F 60 20 145/82 94 L 07/04/18 06:00 07/04/18 06:00 07/04/18 06:00 07/04/18 06:00 07/04/18 06:00 Intake and Output: 07/04/18 07/04/18 06:59 18:59 Intake Total 620 Balance 620 - Medications Medications: Current Medications Albuterol/Ipratropium (Duoneb 3 Mg/0.5 Mg (3 Ml) Ud) 3 ml IH [id number] [facility] Last Admin: 07/04/18 03:25 Dose: 3 ml Albuterol/Ipratropium (Duoneb 3 Mg/0.5 Mg (3 Ml) Ud) 3 ml IH Q2H PRN PRN Reason: Shortness of Breath Arformoterol Tartrate (Brovana) 15 mcg IH [id number] [facility] Last Admin: 07/03/18 19:52 Dose: 15 mcg Aspirin (Aspirin Chewable) 81 mg PO DAILY [facility] Last Admin: 07/03/18 09:58 Dose: 81 mg Atorvastatin Calcium (Lipitor) 40 mg PO DAILY [facility] Last Admin: 07/03/18 10:02 Dose: 40 mg Budesonide (Pulmicort Respules) 0.5 mg IH [id number] [facility] Last Admin: 07/03/18 19:52 Dose: 0.5 mg Cefpodoxime Proxetil (Vantin) 200 mg PO Q12 [facility]; Protocol Last Admin: 07/03/18 21:35 Dose: 200 mg Doxycycline Hyclate (Doryx) 100 mg PO Q12 [facility]; Protocol Last Admin: 07/03/18 21:34 Dose: 100 mg Furosemide (Lasix) 20 mg IVP Q12 [facility] Last Admin: 07/03/18 21:33 Dose: 20 mg Levothyroxine Sodium (Synthroid) 125 mcg PO 0600 [facility] Last Admin: 06/29/18 05:36 Dose: 125 mcg Methylprednisolone (Solu-Medrol) 30 mg IVP Q12 [facility] Last Admin: 07/03/18 21:32 Dose: 30 mg Metoprolol Tartrate (Lopressor) 25 mg PO BID [facility] Last Admin: 07/03/18 18:02 Dose: 25 mg Ondansetron HCl (Zofran Inj) 4 mg IVP Q4H PRN PRN Reason: Nausea/Vomiting - Labs Labs: 07/04/18 06:00 07/04/18 06:00 PT 16.7 SECONDS (9.4-12.5) H 06/28/18 20:00 INR 1.45 06/28/18 20:00 APTT 25.3 Seconds (25.1-36.5) 06/28/18 20:00 Assessment and Plan - Assessment and Plan (Free Text) Assessment: Dyspnea Pneumonia/COPD/NSC lung cancer on oral chemo + trops/R/O NSTEMI/ Probably demand ischemia (NL LV fx. on echo) PAF (AF on yesterdays ECG) Anemia Hypothyroidism Gall Stones GERD Former Smoker Moderate TR and PH on echo Thrombocytosis. Plan: AB/respiratory Tx. IV Lasix > PO Metoprolol 25 BID Consider long-term A/C with oral agent such as Eliquis 5 mg. BID. CHADs Score = 2. As per Dr. Adames. OOB to chair as efren/PT As per Pulm., Onc., ID, GI and Medical Team
[2018-07-04 08:08] LABS: LYMPHOCYTE 4 % (22.0-35.0); MONOCYTE 1 % (1.0-6.0); MYELOCYTE 1 %; NEUTROPHIL 94 % (50.0-70.0); PLATELET ESTIMATE HIGH (NORMAL)
[2018-07-04] MEDS: MethylPREDNISolone 40 mg Vial IVP SCH ×2 (11:19→21:27)
[2018-07-04] MEDS: Cefpodoxime (Vantin) 200 mg Tab PO SCH ×2 (11:20→21:28)
--- NOTE | 2018-07-04 21:11 | PN ---
DATE: 07/04/2018 SUBJECTIVE: The patient is seen earlier today in room 264, bed 2. She is awake and alert, appears to be doing well, requesting information about being discharged. PHYSICAL EXAMINATION VITAL SIGNS: Temperature is 97, blood pressure is 140/60, and respiratory rate of 18. HEENT: Unremarkable. NECK: Supple. LUNGS: Have decreased breath sounds. HEART: Normal S1 and S2. ABDOMEN: Soft. LABORATORY EXAMINATION: Reveals a white count of 15,400, hemoglobin of 9. Chemistries are noted. Urinalysis is noted. Serology is noted. Microbiology; blood cultures are negative. Urine cultures are negative. Nasal MRSA screen is negative. ASSESSMENT AND PLAN: This is a 68-year-old with a probable right-sided healthcare-associated pneumonia with a lung mass, lung cancer, non-small cell, stag IV; morbid obesity, BMI of 40; dyslipidemia; colon cancer; on meropenem and doxycycline, day #6. The patient is doing much better with a negative procalcitonin, now on p.o. Vantin, complete therapy one more day for a 7-day therapy. We will follow with you. Bayron Rooney MD
[2018-07-05] MEDS: Albuterol-Ipratrop 3 mg / 0.5 (3 ml) UD IH SCH ×3 (02:04→13:01)
[2018-07-05 06:34] VITALS: TEMP 97.6
[2018-07-05] MEDS: Arformoterol 15 mcg/2 ml Inh Sol IH SCH (07:12)
[2018-07-05] MEDS: Budesonide 0.5 mg/2 ml Inhal Susp UD IH SCH (07:13)
--- NOTE | 2018-07-05 07:17 | PN ---
DATE: 07/05/2018 PULMONARY NOTE SUBJECTIVE: The patient appears very comfortable this morning. She is not short of breath at rest. PHYSICAL EXAMINATION: VITAL SIGNS: Temperature is 97.6, pulse 62, respirations 18, blood pressure 159/76. Oxygen saturation on nasal cannula is 96-97%. HEENT: Normocephalic, atraumatic. No JVD. CARDIOVASCULAR: Positive S1, S2. Questionable S3 gallop. LUNGS: Clear bilaterally this morning. EXTREMITIES: Less edema. No cyanosis. No clubbing. Calves are nontender to palpation. GI: Abdomen is soft, nontender and nondistended. Bowel sounds are positive. SKIN: No acute rash. NEUROLOGIC: Limited at the present time. IMPRESSION: 1. Advanced/extensive non-small cell lung cancer. 2. Advanced chronic obstructive pulmonary disease. 3. Acute congestive heart failure. 4. Exc-DZ-ofrszdrlc myocardial infarction. 5. Bilateral pleural effusions. 6. Anemia. PLAN: The patient appears very comfortable this morning. She is not short of breath at rest. She is much less dyspneic on exertion. She does state to feeling much, much better overall. I did discuss the case with the night nurse at length. The night nurse stated that the patient had a very good night. On physical exam, her bronchospasm has resolved. In addition, the alveolar-arterial gradient is significantly less. I will continue with the nasal cannula for now. I will also continue with the current nebulizer treatments and change to oral steroids this morning. The patient has also been transitioned to oral antibiotic therapy. I would continue with the treatment for congestive heart failure and acute myocardial infarction as per Cardiology. Input by Dr. Delarosa is noted. Clinical status of the patient is significantly improved - compared to the initial presentation. Unfortunately, her future status/prognosis does remain very guarded at best/poor. The patient is for discharge in the near future. I will discuss the above with the attending physician. Harris Parra MD [facility]ITALSKadie
[2018-07-05 07:40] LABS: BASO # 0.02 K/mm3 (0.0-2.0); BASO % 0.2 % (0.0-3.0); GRAN # 11.05 (1.4-6.5); GRAN % 88.2 % (50.0-68.0); HEMOGLOBIN 9.8 g/dL (12.0-16.0); LYMPH % 8.1 % (22.0-35.0); MEAN CELL VOLUME 69.6 fl (80.0-105.0); MEAN CORPUSCULAR HEMOGLOBIN 20.4 pg (25.0-35.0); MEAN CORPUSCULAR HGB CONC 29.3 g/dl (31.0-37.0); MEAN PLATELET VOLUME 9.3 fl (7.0-11.0); MONO # 0.4 (0.1-0.6); MONO % 3.5 % (1.0-6.0); RBC 4.81 10^6/uL (3.5-6.1); RED CELL DISTRIBUTION WIDTH 18.5 % (11.5-14.5); WHITE BLOOD COUNT 12.5 10^3/uL (4.5-11.0)
--- NOTE | 2018-07-05 07:59 | PN ---
DATE: 07/05/2018 SUBJECTIVE: The patient is in bed, in no acute distress. Seen earlier this morning. No fevers and no chills. She is seen in room 264, bed #1. She is comfortable. PHYSICAL EXAMINATION: VITAL SIGNS: Temperature is 97, blood pressure is 150/70, respiratory rate of 18. HEENT: Unremarkable. NECK: Supple. LUNGS: Have decreased breath sounds. HEART: Normal S1, S2. ABDOMEN: Soft, nontender. LABORATORY DATA: Reveals the patient's white count is 15,400, hemoglobin of 9, platelets are noted at 700,000 and coagulation is noted. Blood gases are noted and chemistries reveal the patient's BUN of 21, creatinine of 0.7 and the patient's procalcitonin is noted at 0.37 and urinalysis is reviewed to be negative. Serology, influenza is negative. Microbiology reveals blood and urine cultures are negative. Nasal MRSA screen is negative. Dr. Parra's note from this morning is reviewed and appreciated. ASSESSMENT AND PLAN: A 68-year-old with probable right-sided healthcare-associated pneumonia with a lung mass, lung cancer, pfy-pvwdb-ctno, stage IV; morbid obesity, body mass index of 40; dyslipidemia; colon cancer; on meropenem and doxycycline, had been completed, now on p.o. Vantin, would complete 7 days and today is day #7 of antibiotics. The patient is hoping for possible discharge. The patient is also on prednisone. Bayron Rooney MD
[2018-07-05 08:08] LABS: ALB/GLOB RATIO 0.8 (1.1-1.8); ALBUMIN 2.6 g/dL (3.0-4.8); ALT/SGPT 51 U/L (7-56); AST/SGOT 30 U/L (14-36); BLOOD UREA NITROGEN 18 mg/dL (7-21); CALCIUM 8.3 mg/dL (8.4-10.5); GFR NON-AFRICAN AMERICAN > 60
[2018-07-05] MEDS: Insulin Reg-LOW-Coverage SC SCH ×2 (09:13→12:17)
[2018-07-05] MEDS: Cefpodoxime (Vantin) 200 mg Tab PO SCH (10:30)
--- NOTE | 2018-07-05 11:02 | CP.PCM.DIS ---
Provider - Provider Date of Admission: 06/28/18 22:31 Attending physician: Gerard Gibson MD Primary care physician: Gabby Adames MD Time Spent in preparation of Discharge (in minutes): 45 Hospital Course - Lab Results Lab Results: Micro Results 06/28/18 21:30 Blood Blood Culture - Final NO GROWTH AFTER 5 DAYS 06/28/18 21:30 Blood Gram Stain - Final TEST NOT PERFORMED 06/29/18 02:45 Blood Blood Culture - Final NO GROWTH AFTER 5 DAYS 06/29/18 02:45 Blood Gram Stain - Final TEST NOT PERFORMED 06/29/18 06:00 Urine,Clean Catch Urine Culture - Final No Growth (<1,000 CFU/ML) 06/29/18 02:00 Nose MRSA Culture (Admit) - Final MRSA NOT DETECTED Most Recent Lab Values WBC 12.5 10^3/uL (4.5-11.0) H 07/05/18 07:25 RBC 4.81 10^6/uL (3.5-6.1) 07/05/18 07:25 Hgb 9.8 g/dL (12.0-16.0) L 07/05/18 07:25 Hct 33.5 % (36.0-48.0) L 07/05/18 07:25 MCV 69.6 fl (80.0-105.0) L 07/05/18 07:25 MCH 20.4 pg (25.0-35.0) L 07/05/18 07:25 MCHC 29.3 g/dl (31.0-37.0) L 07/05/18 07:25 RDW 18.5 % (11.5-14.5) H 07/05/18 07:25 Plt Count 666 10^3/uL (120.0-450.0) H 07/05/18 07:25 MPV 9.3 fl (7.0-11.0) 07/05/18 07:25 Gran % 88.2 % (50.0-68.0) H 07/05/18 07:25 Lymph % (Auto) 8.1 % (22.0-35.0) L 07/05/18 07:25 [place] % (Auto) 3.5 % (1.0-6.0) 07/05/18 07:25 Eos % (Auto) 0.0 % (1.5-5.0) L 07/05/18 07:25 Baso % (Auto) 0.2 % (0.0-3.0) 07/05/18 07:25 Gran # 11.05 (1.4-6.5) H 07/05/18 07:25 Lymph # (Auto) 1.0 (1.2-3.4) L 07/05/18 07:25 [place] # (Auto) 0.4 (0.1-0.6) 07/05/18 07:25 Eos # (Auto) 0.0 (0.0-0.7) 07/05/18 07:25 Baso # (Auto) 0.02 K/mm3 (0.0-2.0) 07/05/18 07:25 Neutrophils % (Manual) 94 % (50.0-70.0) H 07/04/18 06:00 Band Neutrophils % 2 % (0-2) 06/29/18 02:45 Lymphocytes % (Manual) 4 % (22.0-35.0) L 07/04/18 06:00 Monocytes % (Manual) 1 % (1.0-6.0) 07/04/18 06:00 Myelocytes % 1 % 07/04/18 06:00 Toxic Granulation Slight 06/29/18 02:45 Platelet Evaluation High (NORMAL) 07/04/18 06:00 Polychromasia Slight 06/29/18 02:45 Hypochromasia 1+ 06/29/18 02:45 Poikilocytosis (manual Slight 06/29/18 02:45 Anisocytosis (manual) Slight 06/29/18 02:45 Spherocytes Slight 06/29/18 02:45 PT 16.7 SECONDS (9.4-12.5) H 06/28/18 20:00 INR 1.45 06/28/18 20:00 APTT 25.3 Seconds (25.1-36.5) 06/28/18 20:00 pCO2 43 mm/Hg (35-45) 06/28/18 01:55 pO2 102.0 mm/Hg (80-100) H 06/28/18 01:55 HCO3 27.3 mmol/L (21-28) 06/28/18 01:55 ABG pH 7.41 (7.35-7.45) 06/28/18 01:55 ABG Total CO2 28.6 mmol.L (22-28) H 06/28/18 01:55 ABG O2 Saturation 94.9 % (95-98) L 06/28/18 01:55 ABG Base Excess 2.2 mmol/L (-2.0-3.0) 06/28/18 01:55 ABG Potassium 3.3 mmol/L (3.6-5.2) L 06/28/18 01:55 Sodium 137.0 mmol/L (132-148) 06/28/18 01:55 Chloride 103.0 mmol/L (98-107) 06/28/18 01:55 Glucose 130 mg/dl (65-105) H 06/28/18 01:55 Lactate 0.9 mmol/L (0.7-2.1) 06/28/18 01:55 FiO2 100.0 % 06/28/18 01:55 Sodium 135 mmol/L (132-148) 07/05/18 07:25 Potassium 4.1 mmol/L (3.6-5.0) 07/05/18 07:25 Chloride 93 mmol/L (98-107) L 07/05/18 07:25 Carbon Dioxide 39 mmol/L (21-33) H 07/05/18 07:25 Anion Gap 7 (10-20) L 07/05/18 07:25 BUN 18 mg/dL (7-21) 07/05/18 07:25 Creatinine 0.6 mg/dl (0.7-1.2) L 07/05/18 07:25 Est GFR ( Amer) > 60 07/05/18 07:25 Est GFR (Non-Af Amer) > 60 07/05/18 07:25 Random Glucose 350 mg/dL (70-110) H* 07/05/18 07:25 Calcium 8.3 mg/dL (8.4-10.5) L 07/05/18 07:25 Phosphorus 3.4 mg/dL (2.5-4.5) 07/05/18 07:25 Magnesium 1.9 mg/dL (1.7-2.2) 07/05/18 07:25 Total Bilirubin 0.4 mg/dL (0.2-1.3) 07/05/18 07:25 AST 30 U/L (14-36) 07/05/18 07:25 ALT 51 U/L (7-56) 07/05/18 07:25 Alkaline Phosphatase 98 U/L (38-126) 07/05/18 07:25 Lactate Dehydrogenase 1017 U/L (333-699) H 06/28/18 20:00 Total Creatine Kinase 134 U/L (35-230) 06/28/18 20:00 Troponin I 0.81 ng/mL H* 06/30/18 05:30 NT-Pro-B Natriuret Pep 1360 pg/mL (0-450) H 06/28/18 20:00 Total Protein 6.1 g/dL (5.8-8.3) 07/05/18 07:25 Albumin 2.6 g/dL (3.0-4.8) L 07/05/18 07:25 Globulin 3.5 gm/dL 07/05/18 07:25 Albumin/Globulin Ratio 0.8 (1.1-1.8) L 07/05/18 07:25 Procalcitonin 0.37 NG/ML (0.19-0.49) 06/29/18 07:30 Free T4 1.04 ng/dL (0.78-2.19) 06/30/18 06:30 TSH 3rd Generation 0.02 mIU/mL (0.46-4.68) L 07/01/18 06:30 Arterial Blood Potassium 3.3 mmol/L (3.6-5.2) L 06/28/18 01:55 Urine Color Yellow (YELLOW) 06/29/18 06:00 Urine Appearance Clear (CLEAR) 06/29/18 06:00 Urine pH 6.0 (4.7-8.0) 06/29/18 06:00 Ur Specific [place] <= 1.005 (1.005-1.035) 06/29/18 06:00 Urine Protein Negative mg/dL (<30 mg/dL) 06/29/18 06:00 Urine Glucose (UA) Negative mg/dL (NEGATIVE) 06/29/18 06:00 Urine Ketones Negative mg/dL (NEGATIVE) 06/29/18 06:00 Urine Blood Negative (NEGATIVE) 06/29/18 06:00 Urine Nitrate Negative (NEGATIVE) 06/29/18 06:00 Urine Bilirubin Negative (NEGATIVE) 06/29/18 06:00 Urine Urobilinogen 0.2 E.U./dL (<1 E.U./dL) 06/29/18 06:00 Ur Leukocyte Esterase Negative Kerrie/uL (NEGATIVE) 06/29/18 06:00 Influenza Typ A,B (EIA) Negative for flu a/b (NEGATIVE) 06/29/18 00:35 Discharge Exam - Head Exam Head Exam: NORMAL INSPECTION Discharge Plan - Follow Up Plan Condition: GUARDED Disposition: HOME/ ROUTINE Referrals: Gabby Adames MD [Primary Care Provider] -
--- NOTE | 2018-07-05 11:22 | PN ---
DATE: 07/05/2018 SUBJECTIVE: The patient is seen sitting in a chair on telemetry. She feels comfortable at the present time. She denies any chest pain or dyspnea. She is unaware of any palpitations. She remains in sinus rhythm. CURRENT MEDICATIONS: Include aspirin, Brovana, DuoNeb inhaler, Lasix 40 mg daily, Lipitor 40 mg daily, metoprolol 25 mg twice a day, prednisone 40 mg daily, Pulmicort, Synthroid and Vantin. PHYSICAL EXAMINATION: GENERAL: She is a middle-aged woman who appears comfortable at rest. VITAL SIGNS: Her blood pressure is 160/76 with a pulse of 60 in sinus, respirations are 14. She is afebrile. HEENT: No JVD. Chest: A few scattered rhonchi heard. HEART: PMI displaced laterally with systolic murmur at low left sternal border. ABDOMEN: Soft, nontender, normoactive bowel sounds. EXTREMITIES: No edema. LABORATORY DATA: Potassium 4.1, BUN and creatinine are 18 and 0.6, glucose of 350. White count 12.5, hemoglobin and hematocrit are 9.8 and 33.5 with a platelet count of 666,000. IMPRESSION: 1. Recent mildly decompensated congestive heart failure, acute and diastolic in nature, clinically improved. 2. Non-small cell lung cancer. 3. Paroxysmal atrial fibrillation with no evidence of recurrence in the setting of respiratory distress and hypoxia. 4. Thrombocytosis. 5. Moderate tricuspid regurgitation. 6. Recent troponin elevation secondary to demand ischemia. RECOMMENDATIONS: Continue conservative management is advised. Aspirin, beta alexander and statin therapy should continue. From cardiac standpoint, she is stable for discharge home at this time and an outpatient followup will be arranged as needed. Vidal Fong MD
[2018-07-05 14:26] VITALS: O2SAT 98
[2018-07-05 14:27] VITALS: BP 141/62; RESP 20
[2018-07-05 14:30] VITALS: PULSE 55
[2018-07-05] MEDS ORDERED: Influenza Vaccine 60 mcg/0.5 mL SYR (4YR UP) IM ONE (14:42)
== END 2018-07-05 17:30 | disposition home or self-care (01) | DRG 291 ==
LOC: ED 19:23 → ERH 22:31 → ICU 06-29 00:20 → ERH 06-29 00:21 → ICU 06-29 01:02 → 2RNO 06-29 15:55
PROVIDERS: ADMIT Family Medicine; ATTEND Family Medicine
DX: I50.31 Acute diastolic (congestive) heart failure (principal); J18.9 Pneumonia, unspecified organism; J44.0 Chronic obstructive pulmonary disease with (acute) lower respiratory infection; J90 Pleural effusion, not elsewhere classified; I24.8 Other forms of acute ischemic heart disease; Z68.41 Body mass index [BMI] 40.0-44.9, adult; C34.11 Malignant neoplasm of upper lobe, right bronchus or lung; Z85.038 Personal history of other malignant neoplasm of large intestine; D50.9 Iron deficiency anemia, unspecified; Z87.891 Personal history of nicotine dependence; Y95 Nosocomial condition; E66.01 Morbid (severe) obesity due to excess calories; I48.0 Paroxysmal atrial fibrillation; E03.9 Hypothyroidism, unspecified; E78.00 Pure hypercholesterolemia, unspecified; E78.5 Hyperlipidemia, unspecified; F03.90 Unspecified dementia, unspecified severity, without behavioral disturbance, psychotic disturbance, mood disturbance, and anxiety; H26.9 Unspecified cataract; I07.1 Rheumatic tricuspid insufficiency; I25.10 Atherosclerotic heart disease of native coronary artery without angina pectoris; I49.3 Ventricular premature depolarization; K21.9 Gastro-esophageal reflux disease without esophagitis; K59.00 Constipation, unspecified; K80.20 Calculus of gallbladder without cholecystitis without obstruction; M19.90 Unspecified osteoarthritis, unspecified site; R09.02 Hypoxemia; Z79.02 Long term (current) use of antithrombotics/antiplatelets; Z79.82 Long term (current) use of aspirin; Z79.899 Other long term (current) drug therapy; Z87.01 Personal history of pneumonia (recurrent); Z90.49 Acquired absence of other specified parts of digestive tract; Z23 Encounter for immunization

== ENCOUNTER 2018-08-11 14:06 | Inpatient (IN) | payer MEDICARE ==
--- NOTE | 2018-08-11 14:49 | ED PDOC ---
Arrival/HPI - General Chief Complaint: Shortness Of Breath Time Seen by Provider: 08/11/18 14:13 Historian: Patient, Family (Daughters) - History of Present Illness Narrative History of Present Illness (Text): 08/11/18 14:43 A 68 year old female, whose past medical history includes whose past medical history includes hypothyroidism, anemia, degenerative joint disease, non-small cell lung cancer, adenocarcinoma, colon cancer, and COPD, presents to the emergency department for further evaluation of shortness of breath. The patient was advised to come into the emergency department by Dr. Rao. The patient notes non- productive cough, and low grade fever with worsening lower extremity swelling. Patient notes that this is the worse her legs have ever been swollen. The patient denies chills, headache, dizziness, chest pain, dyspnea on exertion, abdominal pain, nausea, vomiting, diarrhea, back pain, neck pain, urinary/bowel changes, or any other complaint. PMD: Dr. Adames Time/Duration: Other (Several Days) Symptom Onset: Sudden Symptom Course: Unchanged Activities at Onset: Rest, Light Context: Home Past Medical History - Provider Review Nursing Documentation Reviewed: Yes - Infectious Disease Hx of Infectious Diseases: None - Cardiac Hx Cardiac Disorders: Yes - Pulmonary Hx Respiratory Disorders: Yes Hx Lung Cancer: Yes (stage 3) Hx Pneumonia: Yes - Neurological Hx Paralysis: No - HEENT Hx HEENT Disorder: Yes (Glasses) Hx Cataracts: Yes - Endocrine/Metabolic Hx Hypothyroidism: Yes - Hematological/Oncological Hx Blood Disorders: Yes Hx Cancer: Yes (Lung, colon) - Integumentary Other/Comment: moles - Musculoskeletal/Rheumatological Hx Arthritis: Yes (Knee and Wrist) - Gastrointestinal Hx Gastrointestinal Disorders: Yes (GI bleed 20 yrs ago) Hx Gastroesophageal Reflux: Yes Other/Comment: colon ca in remission - Psychiatric Hx Emotional Abuse: No Hx Physical Abuse: No Hx Substance Use: No - Surgical History Other/Comment: 10/2017- Colon resection for adenocarcinoma. Surg. repair for detached retina both eyes LEFT 2012,Right 2016 - Anesthesia Hx Anesthesia Reactions: No Hx Malignant Hyperthermia: No - Suicidal Assessment Feels Threatened In Home Enviroment: No Family/Social History - Physician Review Nursing Documentation Reviewed: Yes Family/Social History: No Known Family HX Smoking Status: Never Smoked Hx Alcohol Use: No Hx Substance Use: No Allergies/Home Meds Allergies/Adverse Reactions: Allergies No Known Allergies Allergy (Verified 08/11/18 14:17) Home Medications: Home Meds Medication Instructions Recorded Confirmed Levothyroxine [Synthroid] 125 mcg PO DAILY 10/12/17 08/11/18 Pantoprazole [Protonix EC Tab] 40 mg PO DAILY 10/20/17 08/11/18 Albuterol HFA [Ventolin HFA 90 2 puff IH QID PRN 11/10/17 08/11/18 mcg/actuation (8 g)] Crizotinib [Xalkori] 250 mg PO BID 06/28/18 08/11/18 Fluticasone/Vilanterol [Breo 1 pow IH DAILY 06/28/18 08/11/18 Ellipta] Review of Systems - Physician Review All systems were reviewed & negative as marked: Yes - Review of Systems Constitutional: Fevers Respiratory: SOB, Cough Cardiovascular: absent: Chest Pain, CLINE Gastrointestinal: absent: Abdominal Pain, Stool Changes, Diarrhea, Nausea, Vomiting Genitourinary Female: absent: Urine Output Changes Musculoskeletal: Other (Lower extremity swelling.). absent: Back Pain, Neck Pain Neurological: absent: Headache, Dizziness Physical Exam - Physical Exam Narrative Physical Exam (Text): 08/11/18 14:52 Gen: VS reviewed, alert, well developed, well nourished, nontoxic, mild distress. ENT: normal pharynx. Eye: EOMI, PERRL. Neck: no JVD, supple, no adenopathy. CV: regular rate, regular rhythm, no rubs, no murmur, no gallops, S1, S2, pulses equal and strong. Pulm: no distress, no rhonchi, breath sounds equal, no rales. Faint bilateral expiratory wheeze. Abd: soft, nontender, no guarding, no rebound, no rigidity, normal bowel sounds. Ext: bilateral pitting edema up to the knees. Skin: good color, no rash, no cyanosis. Psych: responds appropriately to questions, normal affect. Neuro: oriented x 3, CN2-12 intact grossly, motor intact, sensation intact. Vital Signs Reviewed: Yes Vital Signs Temp Pulse Resp BP Pulse Ox 08/11/18 14:20 22 86 L 08/11/18 14:15 97.8 F 68 18 120/34 L 88 L Temperature: Afebrile Blood Pressure: Hypotensive Pulse: Regular Respiratory Rate: Normal Appearance: Positive for: Well-Appearing, Non-Toxic, Comfortable Pain Distress: None Mental Status: Positive for: Alert and Oriented X 3 Medical Decision Making ED Course and Treatment: 08/11/18 14:50 Impression: A 68 year old female presents to the emergency department with a complaint of lower extremity swelling and shortness of breath. Plan: -- EKG -- Chest CT -- Labs -- Reassess and disposition Prior Visits: Notes and results from previous visits were reviewed. Progress Notes: 08/11/18 18:[address] kirby to his service. patient to be admitted for anemia and pleural effusion. patient may likely require a thoracentesis. patient remained stable throughout ED course. 08/11/18 18:58 - Lab Interpretations I have reviewed the lab results: Yes - RAD Interpretation Radiology Orders: 08/11/18 14:30 CHEST W/CONTRAST [CT] Stat - EKG Interpretation EKG Interpretation (Text): 08/11/18 15:34 1431: nsr at 64 bpm, nml qrs, nml axis, no acute sttw abn Interpreted by ED Physician: Yes Type: 12 lead EKG - Scribe Statement The provider has reviewed the documentation as recorded by the Scribe Trish Valdez Provider Scribe Attestation: All medical record entries made by the Scribe were at my direction and personally dictated by me. I have reviewed the chart and agree that the record accurately reflects my personal performance of the history, physical exam, medical decision making, and the department course for this patient. I have also personally directed, reviewed, and agree with the discharge instructions and disposition. Disposition/Present on Arrival - Present on Arrival Any Indicators Present on Arrival: No History of DVT/PE: No History of Uncontrolled Diabetes: No Urinary Catheter: No History of Decub. Ulcer: No History Surgical Site Infection Following: None - Disposition Have Diagnosis and Disposition been Completed?: Yes Diagnosis: Dyspnea on exertion, Pleural effusion, Anemia Disposition: HOSPITALIZED Disposition Time: 18:56 Patient Plan: Admission Patient Problems: Current Active Problems Problem Status Onset Anemia Acute Dyspnea on exertion Acute Pleural effusion Acute Condition: STABLE Forms: [employer] ([place])
[2018-08-11] MEDS ORDERED: Albuterol 0.083% Inhal Sol (2.5 mg/3 mL) UD INH STA (15:10)
[2018-08-11 15:22] LABS: VENOUS BLOOD GAS PO2 49 mm/Hg (30-55); VENOUS BLOOD PH 7.46 (7.32-7.43)
[2018-08-11 15:23] LABS: BASO # 0.02 K/mm3 (0.0-2.0); BASO % 0.2 % (0.0-3.0); EOS % 0.3 % (1.5-5.0); GRAN % 80.3 % (50.0-68.0); HEMOGLOBIN 8.7 g/dL (12.0-16.0); LYMPH # 0.9 (1.2-3.4); LYMPH % 8.6 % (22.0-35.0); MEAN CORPUSCULAR HEMOGLOBIN 21.2 pg (25.0-35.0); MEAN CORPUSCULAR HGB CONC 29.8 g/dl (31.0-37.0); MEAN PLATELET VOLUME 8.9 fl (7.0-11.0); MONO # 1.1 (0.1-0.6); MONO % 10.6 % (1.0-6.0); RBC 4.11 10^6/uL (3.5-6.1); RED CELL DISTRIBUTION WIDTH 24.3 % (11.5-14.5)
[2018-08-11 15:35] LABS: INR 1.19; PARTIAL THROMBOPLASTIN TIME 24.4 Seconds (25.1-36.5); PROTHROMBIN TIME 13.6 SECONDS (9.4-12.5)
[2018-08-11 15:48] LABS: TROPONIN I < 0.01 ng/mL
[2018-08-11 15:53] LABS: ALB/GLOB RATIO 0.8 (1.1-1.8); ALBUMIN 2.6 g/dL (3.0-4.8); ALT/SGPT 54 U/L (7-56); AST/SGOT 38 U/L (14-36); BLOOD UREA NITROGEN 18 mg/dL (7-21); CALCIUM 8.1 mg/dL (8.4-10.5); GFR NON-AFRICAN AMERICAN > 60
[2018-08-11] MEDS ORDERED: Iohexol 350 MG/100 ML VIAL ONE (17:11)
--- NOTE | 2018-08-11 18:43 | CT ---
Date of service: 08/11/2018 PROCEDURE: CT Chest with contrast HISTORY: pleural effusion COMPARISON: 06/28/2018 TECHNIQUE: Contiguous axial images were obtained through the chest with intravenous contrast enhancement. Sagittal and coronal reconstructions were performed. IV contrast: 100 mL Omnipaque 350 Radiation dose: Total exam DLP = 906.44 mGy-cm. This CT exam was performed using one or more of the following dose reduction techniques: Automated exposure control, adjustment of the mA and/or kV according to patient size, and/or use of iterative reconstruction technique. FINDINGS: LUNGS: Minimal right lower lobe compressive atelectasis. No acute infiltrate. Irregular right hilar mass as on prior examination. There is a component that measures roughly 3.6 x 4.5 cm and a 2nd component right upper lobe/parahilar measuring approximately 2.6 x 2.1 cm. This is roughly unchanged from prior examination. There is some atelectasis seen in the anterior segment of the right upper lobe abutting the major fissure likely due to bronchial compression. This is most clearly demonstrated on series 3, image 54 where there is severe narrowing of a segmental bronchus in the upper lobe. Scattered tiny nodules are noted all lobes of the right lung. This is a nonspecific finding. This is not significantly changed from the prior CT examination MEDIASTINUM: Unremarkable thoracic aorta. No aneurysm or dissection. Normal sized heart. Very small pericardial effusion. Main pulmonary artery unremarkable. No vascular congestion. Extensive mediastinal and right hilar lymphadenopathy. Right upper lobe neoplasm extends directly to the right hilum and contiguously to the mediastinum. The left hilum is unremarkable. There is atherosclerotic calcification of the thoracic aorta. PLEURA: Small bilateral pleural effusion, right greater than left there is mild decrease in size of the left pleural effusion compared to the prior examination with no change in the right-sided effusion. No pneumothorax. BONES: No fracture. No destructive lesion. UPPER ABDOMEN: Cholelithiasis. OTHER FINDINGS: None. IMPRESSION: Small bilateral pleural effusion, right greater than left. Right hilar mass and right upper lobe/parahilar mass, unchanged from prior examination of 06/28/2018. extensive right hilar and mediastinal lymphadenopathy. Scattered tiny nodules in the right lung common nonspecific. Cannot rule out metastasis. Narrowing of a right upper lobe segmental bronchus with atelectasis. The degree of atelectasis is decreased compared to the prior examination. Minimal right lower lobe compressive atelectasis.
[2018-08-11] MEDS ORDERED: MethylPREDNISolone 40 mg Vial IVP SCH (19:00)
[2018-08-11] MEDS ORDERED: Ergocalciferol 50,000 Intl Units Cap PO SCH (19:15)
[2018-08-11] MEDS ORDERED: Albuterol-Ipratrop 3 mg / 0.5 (3 ml) UD IH SCH (19:15)
[2018-08-11] MEDS: MethylPREDNISolone 40 mg Vial IVP SCH (19:55)
[2018-08-11] MEDS: Albuterol-Ipratrop 3 mg / 0.5 (3 ml) UD IH PRN (19:59)
--- NOTE | 2018-08-11 20:33 | HP ---
DATE OF VISIT: 08/11/2018 This is La White's admission history and physical for the medical floor. CHIEF COMPLAINT: Shortness of breath. HISTORY OF PRESENT ILLNESS: The patient is a 68-year-old female, admitted by the emergency room for an increasing shortness of breath after she came for a visit to Dr. Adames's office earlier today, with the patient known to suffer from stage III cancer of the lung along with history of stage II cancer of the colon. At this time, she is also known to be status post a myocardial infarction on her most recent hospitalization in 06/2018, what is referred to those notes. At present, she is now status post nebulizer treatment with modest improvement with oxygen continuous as per her j2ee android developer, Dr. Feliz, who she saw recently. PAST MEDICAL HISTORY: Significant for hypothyroidism; [id number] CA of the right upper lobe of the lung, stage III cancer of the lung; anemia of chronic disease, status post transfusion; DJD; obesity; mild dementia; most recently subendocardial myocardial infarction; pneumonia; atrial fibrillation; anemia of chronic disease; COPD; hypovitaminosis D; history of colon cancer with resection, stage II. ALLERGIES: NO KNOWN ALLERGIES. MEDICATIONS: Include atorvastatin, Lasix, Synthroid, prednisone, albuterol, aspirin, Breo Ellipta, fluticasone, vilanterol inhaler, metoprolol, Protonix, vitamin D and Xalkori, which is now on hold, treatment for her lung cancer. FAMILY HISTORY AND SOCIAL HISTORY: Nonsmoker now after quitting, non-ethanolic. Daughter and friends at the bedside, otherwise, noncontributory. REVIEW OF SYSTEMS: Twelve-point review of systems was negative to question except for items mentioned in the history of present illness. OBJECTIVE/PHYSICAL EXAMINATION VITAL SIGNS: Temperature 97.8, pulse 68, respirations 18, blood pressure 125/56, pulse ox 96% on 3 L nasal cannula. HEENT: Unremarkable. NECK: Supple. HEART: Regular rate. LUNGS: Faint expiratory wheezes. ABDOMEN: Obese, soft, nontender. EXTREMITIES: +1 edema, bilateral feet. NEUROLOGIC: Awake and alert with history of confusion/dementia. SKIN: Warm and dry, with recent dog scratches on her arms. LABORATORY DATA: The patient's labs were done. White blood cell count of 10.0, hemoglobin of 8.7, hematocrit of 29.2, platelet count of 414,000. INR 1.1. Chem metabolic panel: Calcium of 8.1. AST of 38. Troponin less than 0.01. The patient had a CT scan of her chest done in the emergency room; it was read as small bilateral pleural effusions, right greater than left; right hilar mass, right upper lobe parahilar mass, unchanged from prior exam in 06/2018; extensive right hilar and mediastinal lymphadenopathy; scattered tiny nodules, right lung, nonspecific, cannot rule out metastasis; narrowing of the right upper lobe; segmental bronchus with atelectasis; degree of atelectasis decreased compared to prior exam; minimal right lower lobe compressive atelectasis. The patient's EKG was done, but has not been read; however, it was reviewed by Dr. Oates with no acute ST-T changes noted. ASSESSMENT: For this patient is that of exacerbation of chronic obstructive pulmonary disease, dyspnea on exertion, pleural effusion, anemia of chronic disease, stage III [id number] cancer of the lung, history of stage II cancer of the colon, hypothyroidism, gastroesophageal reflux disease, degenerative joint disease, obesity, mild dementia, glaucoma. PLAN: For this patient after conversation with Dr. Adames is to ask for consult with Dr. Feliz, Pulmonology; Dr. Delarosa, Cardiology; Dr. Rooney, Infectious Disease; and Dr. Dr. Sarah Sinha, Radiation Oncology as the patient has now completed 14 radiation treatments, which continue up to her chest wall. We will also type and cross for 2 units of packed red blood cells and transfuse 1 unit slowly over 3 hours. We will also continue her oxygen with IV Solu-Medrol being given with other recommendations as per consultants' recommendations. This is a complex patient with a comprehensive medically necessary and appropriate visit carried out in excess of 65 minutes with the patient's and her daughter's questions answered to their satisfaction. Gerard Gibson MD
--- NOTE | 2018-08-11 20:48 | CARD ---
APPROVED REPORT Date of service: 08/11/2018 EKG Measurement Heart [id number] <Conclusion> Normal sinus rhythm Low voltage QRS Borderline ECG
[2018-08-11 22:39] VITALS: BMI 39.1
[2018-08-11] MEDS ORDERED: Influenza Vaccine 60 mcg/0.5 mL SYR (4YR UP) IM ONE (22:39)
--- NOTE | 2018-08-12 01:40 | CON ---
DATE: 08/11/2018 PULMONARY CONSULTATION REFERRING PHYSICIAN: Gerard Gibson MD REASON FOR CONSULTATION: Cough, shortness of breath, sleep apnea syndrome, lung cancer. HISTORY OF PRESENT ILLNESS: This is a 68-year-old female known to me from previous admission in our office with history of colon cancer requiring resection in the remote past, developed an unresectable lung cancer, been on chemotherapy, also hypothyroid, degenerative joint disease, anemia, sleep apnea syndrome, presented to Dr. Adames's office with cough, shortness of breath. No hemoptysis, no hematemesis, no hematuria. No diarrhea. No leg pain or leg swelling. PAST MEDICAL HISTORY: As per history of present illness. Also, a history of GI bleed in the remote past, GERD. History of detached retina, both eyes, in the past. FAMILY HISTORY: No significant cardiopulmonary disease reported. SOCIAL HISTORY: Nonsmoker, nondrinker. ALLERGIES: NONE KNOWN. MEDICATIONS: She is placed on vitamin D 50,000 units weekly, DuoNeb every 8 hours, Ecotrin 81 mg daily, Lasix 40 mg daily, Lipitor 40 mg daily, metoprolol tartrate 25 mg daily, Protonix 40 mg daily, Solu-Medrol 20 mg every 8 hours, Synthroid 125 mcg daily, Tylenol p.r.n. basis. REVIEW OF SYSTEMS: No headache, no rhinitis. Has cough, shortness of breath. No chest pain. No nausea, no vomiting. No diarrhea, leg pain, leg swelling. Compliant with the CPAP. PHYSICAL EXAMINATION: VITAL SIGNS: Temperature is 98, heart rate 68, respiratory rate is 18, blood pressure 120/ , pulse ox 86% on 3 liters nasal cannula. HEENT: Moist mucous membranes. Crowded airway. Mallampati score is 4. NECK: Supple. No JVD. LUNGS: Have bilateral scattered rhonchi and wheezing. HEART: S1 and S2. ABDOMEN: Soft, nontender. No organomegaly. EXTREMITIES: No edema. NEUROLOGIC: Awake and alert. Follows simple commands. LABORATORY DATA: Hemoglobin 8.7, hematocrit 29.2, WBC 10.0, platelet count is 414. INR 1.1. PTT 24. Blood gases show pH 7.46, pCO2 of 43, O2 of 49; that was on room air. Sodium 135, potassium 4.4, chloride 101, bicarbonate 31, BUN 18, creatinine 0.8, glucose 108, calcium is 8.1, AST 38, ALT 54, alk phos is 124. Albumin 2.6. CT scan of the chest is done in ER, shows small bilateral pleural effusion, right greater than the left. Hilar mass which is right hilar mass and right upper lobe/parahilar mass, unchanged from prior examination, which was 06/28/2018. Extensive right hilar and mediastinal lymphadenopathy, scattered tiny nodules in the right lung which is nonspecific. Also, narrowing of the right upper lobe segmental bronchus with atelectasis. IMPRESSION AND PLAN: Unresectable lung cancer, progressive disease with narrowing of the bronchioles, cannot rule out pneumonia, bilateral pleural effusion, history of sleep apnea syndrome, morbid obesity, hypothyroid. Case discussed with Dr. Adames. Also spoke to family at bedside. I agree with the present management. We will increase Solu-Medrol to 40 mg every 12 hours. Add doxycycline, inhaled bronchodilator, gastric prophylaxis, DVT prophylaxis. Place on BiPAP while sleeping. Thank you and we will follow with you. Hussein Feliz MD
[2018-08-12] MEDS: MethylPREDNISolone 40 mg Vial IVP SCH ×3 (05:57→21:31)
[2018-08-12] MEDS ORDERED: Levothyroxine 125 MCG TAB PO SCH (06:00)
[2018-08-12 06:41] LABS: BASO # 0.01 K/mm3 (0.0-2.0); BASO % 0.1 % (0.0-3.0); GRAN # 6.88 (1.4-6.5); GRAN % 90.5 % (50.0-68.0); HEMOGLOBIN 9.3 g/dL (12.0-16.0); LYMPH # 0.5 (1.2-3.4); LYMPH % 6.6 % (22.0-35.0); MEAN CELL VOLUME 73.2 fl (80.0-105.0); MEAN CORPUSCULAR HEMOGLOBIN 21.5 pg (25.0-35.0); MEAN CORPUSCULAR HGB CONC 29.3 g/dl (31.0-37.0); MEAN PLATELET VOLUME 9.2 fl (7.0-11.0); MONO # 0.2 (0.1-0.6); MONO % 2.8 % (1.0-6.0); PLATELET COUNT 393 10^3/uL (120.0-450.0); RBC 4.33 10^6/uL (3.5-6.1); RED CELL DISTRIBUTION WIDTH 24.5 % (11.5-14.5); WHITE BLOOD COUNT 7.6 10^3/uL (4.5-11.0)
[2018-08-12 06:44] LABS: ALB/GLOB RATIO 0.8 (1.1-1.8); ALBUMIN 2.7 g/dL (3.0-4.8); ALT/SGPT 57 U/L (7-56); AST/SGOT 36 U/L (14-36); BLOOD UREA NITROGEN 18 mg/dL (7-21); CALCIUM 7.9 mg/dL (8.4-10.5); GFR NON-AFRICAN AMERICAN > 60
[2018-08-12] MEDS: Budesonide 0.5 mg/2 ml Inhal Susp UD IH SCH ×2 (08:34→19:29)
[2018-08-12] MEDS: Acetylcysteine 20% Inhal Soln (4ml) IH SCH ×2 (08:34→19:28)
[2018-08-12] MEDS: Arformoterol 15 mcg/2 ml Inh Sol IH SCH ×3 (08:34→19:35)
[2018-08-12] MEDS: Albuterol-Ipratrop 3 mg / 0.5 (3 ml) UD IH PRN ×2 (08:35→19:28)
[2018-08-12] MEDS: Pantoprazole 40 mg EC Tab PO SCH (09:28)
[2018-08-12 09:59] LABS: LYMPHOCYTE 2 % (22.0-35.0); NEUTROPHIL 92 % (50.0-70.0)
[2018-08-12 10:00] LABS: BAND 1 % (0-2); EOSINOPHIL 1 % (0.0-3.0); HYPOCHROMIA 2+; MONOCYTE 4 % (1.0-6.0); PLATELET ESTIMATE NORMAL (NORMAL); ROULEAU 1+; TARGET CELLS 1+; TOXIC GRANULATION 2+
--- NOTE | 2018-08-12 12:35 | CON ---
DATE OF CONSULTATION: 08/12/2018 CHIEF COMPLAINT: Shortness of breath for several days. HISTORY OF PRESENT ILLNESS: This is a 68-year-old female with a stage IV non-small cell lung cancer, hypothyroidism, history of colon cancer, high cholesterol, cataract, degenerative joint disease, long-time ex-smoker, anemia, who was recently hospitalized in 06/2018, approximately a month ago, with a healthcare-associated pneumonia with a lung mass and completed the antibiotics. She has been on prednisone and returns to the emergency room with shortness of breath. The patient was seen by Dr. Jose Armando Oates in the emergency room. The patient denied any fevers, though she states she has low-grade fevers. No chills. No chest pain, dysuria, frequency. No headaches or blurred vision. No abdominal pain or diarrhea or constipation. No rash. No new joint pain. PAST MEDICAL HISTORY: Significant for stage IV non-small cell lung cancer, hypothyroidism, colon cancer, degenerative joint disease, anemia, high cholesterol and cataract. PAST SURGICAL HISTORY: Significant for polypectomy, colonoscopy, colon resection, also had surgery for detached retina. MEDICATIONS AT HOME: Protonix, metoprolol, Synthroid, Lasix, Lipitor, and inhaler. ALLERGIES: THE PATIENT HAS NO KNOWN ALLERGIES TO ANY ANTIBIOTICS. PHYSICAL EXAMINATION: GENERAL: She is in bed. She is answering questions appropriately. VITAL SIGNS: Temperature of 97.4, heart rate of 70, respiratory rate of 22, blood pressure is 129/50. HEENT: Unremarkable. NECK: Supple. LUNGS: Decreased breath sounds. HEART: Normal S1 and S2. ABDOMEN: Soft. LABORATORY EXAMINATION: White count of 10,000, hemoglobin of 8, platelets of 414,000. Coagulation is noted. Blood gases are reviewed. Chemistries reveal LFTs are noted. Creatinine 0.8. Microbiology is pending. Prior microbiology on previous admissions, urine culture negative, blood cultures negative. The patient had a CAT scan of the chest yesterday, read by Dr. Gus Lopez, which is reviewed. Bilateral effusions, right greater than left. Also a right hilar mass, unchanged. Extensive mediastinal adenopathy and narrowing of right upper segmental bronchus and atelectasis. No acute infiltrate. Dr. Feliz's consultation is reviewed. Dr. Gerard Gibson's history and physical examination is reviewed. Orders reveal the patient's blood cultures are pending. Procalcitonin is pending. The patient is currently on p.o. doxycycline and prednisone. ASSESSMENT AND PLAN: This is a 68-year-old female with #1 is progression of lung cancer with a CAT scan that shows no acute infiltrates. No evidence of infection at this point. The patient is afebrile and a normal white count. We will check on the cultures and the procalcitonin. Overall prognosis is quite poor. Bayron Rooney MD
--- NOTE | 2018-08-12 14:41 | CON ---
DATE: 08/12/2018 REQUESTING PHYSICIAN: Dr. Gibson. REASON FOR CONSULTATION: Dyspnea. HISTORY: This is a 68-year-old woman, well-known to us with a history of stage III lung cancer as well as a history of colon cancer, admitted with worsening dyspnea. She had been admitted last month with decompensated congestive heart failure and paroxysmal atrial fibrillation as well as elevated troponin in the setting of the demand ischemia. She presented yesterday with worsening dyspnea. She denied any chest pain. She was noted to be more anemic and received the transfusion overnight. She is feeling somewhat better. She is undergoing radiation therapy for non-small cell carcinoma of her right upper lobe. She also has a history of colon cancer. She does have chronic anemia, paroxysmal atrial fibrillation with no evidence of recurrence since the recent admission and history of COPD, obesity, osteoarthritis, and prior pneumonia. MEDICATIONS: Her current medications include Mucomyst, Brovana, doxycycline, DuoNeb inhaler, Ecotrin, subcu heparin, Lasix 40 mg orally daily, Lipitor 40 mg daily, metoprolol 25 mg daily, Protonix 40 mg daily, Pulmicort inhaler, Solu-Medrol 40 mg every 8 hours, and Synthroid 125 mcg daily. SOCIAL HISTORY: She is a former smoker. She does not drink. FAMILY HISTORY: Both parents are from age-related illness. ALLERGIES: NONE. REVIEW OF SYSTEMS: Ten-point review of systems is notable mainly for the problems mentioned above. She has had increasing leg edema lately. PHYSICAL EXAMINATION: GENERAL: She is an obese middle-aged woman. VITAL SIGNS: Her blood pressure is 132/70 with a pulse of 60 and regular, respirations are 18. She is currently afebrile. HEENT: Normocephalic and atraumatic. NECK: Supple. No JVD noted. CHEST: Diminished breath sounds noted at both bases. Few scattered rhonchi heard. HEART: PMI displaced laterally with a systolic murmur at the lower left sternal border. ABDOMEN: The abdomen is soft, obese, nontender with normoactive bowel sounds. EXTREMITIES: Two to three plus leg edema noted. SKIN: Warm and dry. PSYCHIATRIC: Normal mood and affect. NEUROLOGIC: Alert and oriented x3. No gross motor or sensory deficits noted. DIAGNOSTIC DATA: Potassium is 3.9. BUN and creatinine are 18 and 0.7, glucose 262, sodium is 136. White count 7.6, initial hemoglobin 8.7, repeat is 9.3 with hematocrit 31.7, MCV is 73.2, platelet count 393,000. PT/INR are 13.6 and 1.19 with a PTT of 24.4. Venous blood gas showed pH 7.46, pCO2 of 43, pO2 of 49. AST and ALT are 36 and 57. Troponin is negative. TSH less than 0.02. Chest x-ray is not currently in the system. A CT of the chest shows small bilateral pleural effusions with a right hilar mass and right upper lobe mass as well, extensive adenopathy is noted. Electrocardiogram reveals sinus rhythm with a borderline low voltage QRS and nonspecific ST-T abnormalities. IMPRESSION: 1. Dyspnea likely multifactorial including underlying lung cancer, some degree of volume overload as well as worsened anemia. 2. Stage III lung cancer, undergoing radiation therapy. 3. History of colon cancer resection. 4. Paroxysmal atrial fibrillation, currently in sinus rhythm, not anticoagulated due to the risk/benefit ratio. 5. Microcytic anemia, improved after transfusion. 6. Rest of problems as noted. RECOMMENDATIONS: Her current cardiac medications will continue for now. Lasix will be switched to IV administration for better diuresis. Monitoring her renal function will be planned. Sodium restriction is advised. Prior records will be reviewed and further recommendations will be based upon her clinical course and review of those records. Thank you for this consultation. I will be happy to follow through her hospital course as needed. Vidal Fong MD
--- NOTE | 2018-08-12 15:37 | PN ---
DATE: 08/12/2018 PULMONARY PROGRESS NOTE REFERRING PHYSICIAN: Gerard Gibson MD SUBJECTIVE: The patient is sitting up in bed. Reports feeling better today. Reports cough and shortness of breath are better. No headache, rhinitis, chest pain, abdominal pain, nausea, vomiting, diarrhea, leg pain or leg swelling reported. PHYSICAL EXAMINATION GENERAL: No acute distress. VITAL SIGNS: Blood pressure 133/70, pulse 58, temperature 97.4, and oxygen saturation 95%. HEENT: Moist mucous membranes. Crowded airway. Mallampati score of 4. NECK: Supple. No JVD. LUNGS: Few scattered rhonchi bilaterally. Wheezing bilaterally. CARDIOVASCULAR: S1 and S2 audible. ABDOMEN: Soft and nontender. No distention. No organomegaly. EXTREMITIES: No bilateral lower extremity edema. NEUROLOGICAL: Awake, alert, verbal, and follows simple commands MEDICATIONS: Reviewed. Tylenol 650 mg every 4 hours p.r.n. fever greater than 100.4, Mucomyst 4 mL inhalation twice a day, DuoNeb 3 mL inhalation three times a day p.r.n., Brovana 15 mcg every 12 hours, aspirin 81 mg daily, Lipitor 40 mg in the evening, Pulmicort 0.5 mg every 12 hours, doxycycline 100 mg every 12 hours, ergocalciferol 50,000 units every 7 days, Lasix 40 mg IV twice a day, Heparin 5,000 units subcutaneous every day, Synthroid 125 mcg p.o. daily, , Solu-Medrol 40 mg IV push every 8 hours, metoprolol tartrate 25 mg p.o. daily, Protonix 40 mg daily and potassium chloride oral 20 mEq p.o. twice a day. LABORATORY DATA: Reviewed. WBC 7.6, RBC 4.33, hemoglobin 9.3, hematocrit 31.7 and platelets 393. Sodium 136, potassium 3.9, chloride 101, carbon dioxide 29, anion gap 10, BUN 18, creatinine 0.7, GFR greater than 60, random glucose 262, calcium 7.9, total bilirubin 0.4, AST 36, ALT 57, alkaline phosphatase 131, total protein 6.2, albumin 2.7, globulin 3.5 and albumin-globulin ratio 0.8. Procalcitonin 0.25. TSH less than 0.02. IMPRESSION AND PLAN: Unresectable lung cancer, progressive disease with narrowing of the bronchioles, bilateral pleural effusion, history of sleep apnea syndrome, morbid obesity, and hypothyroidism. Continue steroids, inhaled bronchodilator, gastric prophylaxis, deep venous thrombosis prophylaxis, continue bilevel positive airway pressure at bedtime, sleep apnea precautions and head of bed elevated at 45 degrees. Goal is to optimize lung functions for radiation. This patient was seen and examined with Dr. Feliz. Discussed assessment and plan as described above. Thank you for this consult. We will follow with you. Juan Richardson APN Hussein Feliz MD
--- NOTE | 2018-08-12 18:24 | PN ---
DATE: 08/12/2018 This is [facility] visit on medical floor for Dr. Adames. SUBJECTIVE: The patient is a 68-year-old female, admitted by the emergency room for increasing shortness of breath, worsening pedal edema with known unresectable lung cancer with anemic indices. At present, the patient is sitting up in the chair, resting with family members at the bedside, slowly improving after consults with sr technical sales consultant's recommendations implemented including Lasix twice a day IV as per Dr. Fong. There is also question of early pneumonia with treatment directed toward this end was retransfusion of packed red blood cells yesterday with good effect. PHYSICAL EXAMINATION: VITAL SIGNS: Temperature 97.4, pulse 58, respirations 22, blood pressure 133/70, and pulse ox 95%. HEENT: Unremarkable. NECK: Supple. HEART: Regular rate, 1/6 systolic ejection murmur. LUNGS: Decreased breath sounds, rare rhonchi. ABDOMEN: Obese, soft, and nontender. EXTREMITIES: +1 edema bilaterally at the feet. SKIN: Warm and dry. NEUROLOGIC: Awake and alert. It should be noted that the patient has excoriations on her left lower extremity and status post dog scratches on her hands, which we will give bacitracin ointment. LABORATORY DATA: The patient's labs were done. White blood cell count 7.6, hemoglobin 9.3 improved from 8.7 yesterday to 1 unit of packed cells transfused; hematocrit 31.7; and platelets count 393,000. Her metabolic panel shows nonfasting glucose 266, calcium 7.9, ALT of 57, alkaline phosphatase 131, and albumin 2.7. TSH less than 0.02, we will hold her Synthroid. INR yesterday was 1.1. ASSESSMENT: Exacerbation of chronic obstructive pulmonary disease with pleural effusions, questionable pneumonia, sleep apnea, stage III [id number] cancer of the lung, history of stage II cancer of the colon, hypothyroidism, gastroesophageal reflux disease, obesity, degenerative disk disease, mild dementia, and glaucoma. PLAN: To hold her Synthroid for now as her TSH is less than 0.01. We will continue present medical regiment as per Dr. Feliz and Dr Fong along with antibiotics prophylactically as there is suspicion of pneumonia on her chest x-ray with her Lasix twice a day for pedal edema with monitoring of her hemoglobin as her indices improved after transfusion of 1 unit of packed cells. We will also give bacitracin for excoriations and have her out of bed to the chair and physiotherapy as indicated. We will also allowed to take her glaucoma eye drops from home may not be on formulary. This is a complex patient with a comprehensive medically necessary and appropriate visit carried out in excess of 20 minutes with the patient and her family members questions answered to their satisfaction. Gerard Gibson MD
[2018-08-12] MEDS ORDERED: XALKORI 250 MG PO SCH (18:45)
[2018-08-12] MEDS: Potassium Chloride 20 mEq/15 ml LIQ UD PO SCH (18:46)
[2018-08-12] MEDS: Bacitracin Ointment 30 GM TUBE TOP SCH (18:51)
[2018-08-12] MEDS: XALKORI 250 MG PO SCH (18:51)
[2018-08-13] MEDS: MethylPREDNISolone 40 mg Vial IVP SCH ×3 (06:20→22:40)
[2018-08-13 06:51] LABS: BLOOD UREA NITROGEN 17 mg/dL (7-21); CALCIUM 8.3 mg/dL (8.4-10.5); GFR NON-AFRICAN AMERICAN > 60
[2018-08-13 06:55] LABS: GRAN # 10.44 (1.4-6.5); HEMOGLOBIN 8.8 g/dL (12.0-16.0); LYMPH # 0.4 (1.2-3.4); LYMPH % 3.8 % (22.0-35.0); MEAN CELL VOLUME 73.7 fl (80.0-105.0); MEAN CORPUSCULAR HEMOGLOBIN 21.2 pg (25.0-35.0); MEAN CORPUSCULAR HGB CONC 28.8 g/dl (31.0-37.0); MEAN PLATELET VOLUME 9.4 fl (7.0-11.0); MONO # 0.6 (0.1-0.6); MONO % 5.2 % (1.0-6.0); RBC 4.15 10^6/uL (3.5-6.1); RED CELL DISTRIBUTION WIDTH 24.5 % (11.5-14.5); WHITE BLOOD COUNT 11.5 10^3/uL (4.5-11.0)
[2018-08-13] MEDS: Arformoterol 15 mcg/2 ml Inh Sol IH SCH ×2 (07:31→20:12)
[2018-08-13] MEDS: Acetylcysteine 20% Inhal Soln (4ml) IH SCH ×2 (07:31→20:12)
[2018-08-13] MEDS: Budesonide 0.5 mg/2 ml Inhal Susp UD IH SCH ×2 (07:32→20:12)
[2018-08-13] MEDS: Potassium Chloride 20 mEq/15 ml LIQ UD PO SCH ×3 (09:54→18:49)
[2018-08-13] MEDS: Pantoprazole 40 mg EC Tab PO SCH (09:54)
[2018-08-13] MEDS: Bacitracin Ointment 30 GM TUBE TOP SCH (09:55)
[2018-08-13] MEDS: XALKORI 250 MG PO SCH ×2 (09:55→18:50)
--- NOTE | 2018-08-13 12:36 | PN ---
DATE: 08/13/2018 SUBJECTIVE: The patient is seen sitting in a chair, on telemetry. Her dyspnea is somewhat improved; however, persists with exertion. Peripheral edema persists as well. CURRENT MEDICATIONS: Include Mucomyst, Brovana, doxycycline, DuoNeb inhaler, Ecotrin, subcutaneous heparin, Xalkori, Lasix 40 mg IV b.i.d., Lipitor 40 mg daily, metoprolol 25 mg daily potassium 20 mEq b.i.d., Protonix, Pulmicort inhaler, Solu-Medrol, Synthroid. OBJECTIVE: GENERAL: She is an overweight middle-aged woman. VITAL SIGNS: Her blood pressure is 116/66 with a pulse of 62, in sinus. She did have an episode of paroxysmal atrial fibrillation last evening with controlled ventricular rate. HEENT: No JVD. CHEST: Bilateral scattered rhonchi. HEART: PMI displaced laterally with systolic murmur at the left sternal border. ABDOMEN: Soft, nontender with bowel sounds. EXTREMITIES: 2+ leg edema. DIAGNOSTIC DATA: Potassium 4, BUN and creatinine 70 and 0.7, glucose 277. White count 11.5, hemoglobin and hematocrit 11.3 and 30.6 with platelet count 420,000. MCV is 73.7. IMPRESSION: 1. Persistent dyspnea due to underlying lung cancer, anemia, and volume overload. 2. Stage III lung cancer, currently undergoing radiation therapy. 3. Paroxysmal atrial fibrillation, currently in sinus rhythm. 4. Microcytic anemia, improved after transfusion. 5. Rest of problems as noted. RECOMMENDATIONS: IV Lasix will be continued for now. Oral Zaroxolyn will be added for three days in attempts to improve her diuresis. From a cardiac standpoint, she is stable to proceed with her planned radiation therapy sessions. We will continue to follow and make further recommendations as needed. Vidal Fong MD MTDD
[2018-08-13] MEDS: metOLazone 5 MG TAB PO SCH (13:08)
[2018-08-13] MEDS: Albuterol-Ipratrop 3 mg / 0.5 (3 ml) UD IH PRN (13:45)
--- NOTE | 2018-08-13 14:17 | PN ---
DATE: 08/13/2018 This is [facility]'s [facility] visit on the medical floor. For Dr. Adames SUBJECTIVE: The patient is a 68-year-old female, sitting up in a chair, reporting that her leg swelling is better with her breathing approximately the same. She was transfused one unit of packed red blood cells for anemic indices with modest improvement in her anemic indices, with the patient also now getting Lasix twice a day IV as per Dr. Fong, her manager business intelligence. Also Xalkori twice a day was restarted as the patient's family brought these medicines from home for her cancer treatment. She otherwise is in no acute distress. PHYSICAL EXAMINATION: VITAL SIGNS: Temperature 97.6, pulse 62, respirations 24, and blood pressure 117/66. Pulse ox 97%. HEENT: Unremarkable. NECK: Supple. HEART: Regular rate; 1/6 systolic ejection murmur. LUNGS: Decreased breath sounds, rare rhonchi. ABDOMEN: Obese, soft, nontender.. EXTREMITIES: +1 edema bilaterally in the lower extremities. SKIN: Warm and dry except for excoriations where her dog scratched her on her forearms and lower extremity for which bacitracin is being given. NEUROLOGIC: Awake and alert. LABORATORY DATA: The patient's labs were done; white blood cell count 11.5 secondary to IV steroids, hemoglobin 8.8, hematocrit 30.6, platelet count 420,000 with the metabolic panel within normal range except for non-fasting glucose 277. ASSESSMENT: The assessment for this patient is that of exacerbation of chronic obstructive pulmonary disease, stage III non-small cell cancer of the lung, stage II cancer of the colon, history of hypothyroidism, questionable pneumonia, gastroesophageal reflux disease, obesity, degenerative joint disease, mild dementia, glaucoma, excoriations secondary to dog scratches, anemia of chronic disease status post transfusion, hyperglycemia secondary to steroids. PLAN: This patient is to continue present medical regimen. As per payroll consultant's recommendations, we will monitor her clinically and with labs with Xalkori restarted as the family brought the medicines in from home to be continued twice a day for treatment of her lung cancer. Gerard Gibson MD
--- NOTE | 2018-08-13 16:06 | PN ---
DATE: 08/13/2018 SUBJECTIVE: The patient is in bed, in no acute distress, nontoxic. She has less shortness of breath. PHYSICAL EXAMINATION: VITAL SIGNS: Temperature is 97, blood pressure is 117/60, respiratory rate of 18. HEENT: Examination of HEENT is unremarkable. NECK: Supple. LUNGS: Have decreased breath sounds. HEART: Normal S1 and S2. ABDOMEN: Soft and nontender. LABORATORY EXAMINATION: Reveals a white count of 11,500, hemoglobin of 8. Chemistry reveals a BUN of 17, creatinine of 0.7, procalcitonin is 0.25. Microbiology reveals the blood cultures are negative and the patient is on Solu-Medrol and doxycycline. The patient's procalcitonin is 0.25 as stated. ASSESSMENT AND PLAN: This is a 68-year-old female with stage II non-small cell lung cancer, hypothyroidism, history of colon cancer, high cholesterol, cataract, degenerative joint disease, long-time ex-smoker, anemia with and hospitalized a month ago with healthcare-associated pneumonia, has a lung mass, has completed antibiotics. The patient is on prednisone, now admitted with shortness of breath and the patient had a CAT scan of the chest which shows no acute infiltrates, no evidence of infection, just progression of the lung cancer on CAT scan, currently on p.o. doxycycline only and negative blood cultures and negative procalcitonin. The patient is at risk for developing nosocomial infections, today is day #3 of p.o. doxycycline, would complete 5 days of p.o. doxycycline, on Solu-Medrol and overall prognosis is quite poor. Bayron Rooney MD
--- NOTE | 2018-08-13 21:07 | PN ---
DATE: 08/13/2018 SUBJECTIVE: She is out of bed to chair, feels better, has a leg swelling. Cardiology added Zaroxolyn, gets short of breath with exertion. Cough is improved. No nausea, no vomiting, no diarrhea. OBJECTIVE : GENERAL: No acute distress. VITAL SIGNS: Temperature is 98, heart rate 62, respiratory rate is 18, blood pressure 117/69, pulse of 94% on 3 liters nasal canula. HEENT: Moist mucous membrane. Crowded airway. Short thick neck. LUNGS: Has a better airflow. Scattered rhonchi, no wheezing today. HEART: S1 and S2. ABDOMEN: Soft, nontender, no hepatomegaly. EXTREMITIES: Has edema. NEUROLOGIC: Awake, alert, follows simple command. MEDICATIONS: She is on Mucomyst inhaled twice a day, bacitracin on affected area, Brovana inhaled twice a day, doxycycline 100 mg twice a day, vitamin D 50,000 units every 7 days, DuoNeb every 8 hours p.r.n., Ecotrin 81 mg daily heparin 5000 subcu every 8 hours, Lasix 40 mg IV twice a day, atorvastatin 40 mg daily, metoprolol tartrate is 25 mg daily, potassium supplement 20 mEq three times a day, Protonix 4 mg daily, Pulmicort inhaled twice a day, Solu-Medrol 40 mg every 8 hours, Synthroid 125 mcg daily, Tylenol p.r.n., Zaroxolyn 5 mg today. LABORATORY DATA: Hemoglobin 8.8, hematocrit 30.6, WBC 11.5, platelet is 420. Sodium 137, potassium 4, chloride 101, bicarbonate 32, BUN 17, creatinine 0.7, glucose 277, calcium is 8.3. TSH less than 0.02. Microbiology, blood culture, there is no growth. IMPRESSION AND PLAN: Unresectable lung cancer, progressive cancer and narrowing of the right mainstem bronchus, bilateral pleural effusion, sleep apnea syndrome, morbid obesity, hypothyroid. There may be component of heart failure. Pulmonary point view, doing much better. We will decrease Solu-Medrol to 40 every 12 hours. Continue antibiotics. Gastric prophylaxis, deep vein thrombosis prophylaxis, diuretics. Will be seen by Radiation Oncology to assess radiation therapy. Thank you and we will follow with you. Hussein Feliz MD [facility] # [id number]
[2018-08-14 07:07] LABS: BASO # 0.01 K/mm3 (0.0-2.0); BASO % 0.1 % (0.0-3.0); GRAN # 10.51 (1.4-6.5); GRAN % 91.2 % (50.0-68.0); HEMOGLOBIN 9.5 g/dL (12.0-16.0); LYMPH # 0.4 (1.2-3.4); LYMPH % 3.1 % (22.0-35.0); MEAN CELL VOLUME 72.9 fl (80.0-105.0); MEAN CORPUSCULAR HEMOGLOBIN 21.5 pg (25.0-35.0); MEAN CORPUSCULAR HGB CONC 29.5 g/dl (31.0-37.0); MEAN PLATELET VOLUME 9.4 fl (7.0-11.0); MONO # 0.6 (0.1-0.6); MONO % 5.6 % (1.0-6.0); RBC 4.42 10^6/uL (3.5-6.1); RED CELL DISTRIBUTION WIDTH 24.5 % (11.5-14.5); WHITE BLOOD COUNT 11.5 10^3/uL (4.5-11.0)
[2018-08-14 07:16] LABS: BLOOD UREA NITROGEN 19 mg/dL (7-21); CALCIUM 8.7 mg/dL (8.4-10.5); GFR NON-AFRICAN AMERICAN > 60
[2018-08-14] MEDS: Acetylcysteine 20% Inhal Soln (4ml) IH SCH ×2 (08:13→20:24)
[2018-08-14] MEDS: Budesonide 0.5 mg/2 ml Inhal Susp UD IH SCH ×2 (08:13→20:24)
[2018-08-14] MEDS: Arformoterol 15 mcg/2 ml Inh Sol IH SCH ×2 (08:13→20:24)
[2018-08-14] MEDS: Albuterol-Ipratrop 3 mg / 0.5 (3 ml) UD IH PRN ×2 (08:14→13:53)
[2018-08-14] MEDS: Bacitracin Ointment 30 GM TUBE TOP SCH ×2 (09:56→17:23)
[2018-08-14] MEDS: XALKORI 250 MG PO SCH ×2 (09:57→17:23)
[2018-08-14] MEDS: Pantoprazole 40 mg EC Tab PO SCH (09:59)
[2018-08-14] MEDS: Potassium Chloride 20 mEq/15 ml LIQ UD PO SCH ×3 (09:59→17:25)
[2018-08-14] MEDS: MethylPREDNISolone 40 mg Vial IVP SCH ×2 (10:00→21:32)
[2018-08-14] MEDS: metOLazone 5 MG TAB PO SCH (10:00)
--- NOTE | 2018-08-14 10:21 | PN ---
DATE: 08/14/2018 SUBJECTIVE: The patient is seen lying in bed on remote telemetry. She is comfortable. She states her dyspnea is somewhat improved. She did some ambulation yesterday. Peripheral edema persists but is improved. CURRENT MEDICATIONS: Include Mucomyst, bacitracin, Brovana, doxycycline, DuoNeb inhaler, Ecotrin, subcutaneous heparin, Lasix 40 mg IV twice daily., Lipitor, metoprolol 25 mg daily, Protonix 40 mg daily, Pulmicort, Solu-Medrol, Synthroid and Zaroxolyn 5 mg daily. OBJECTIVE: GENERAL: She is an overweight middle-aged woman. VITAL SIGNS: Blood pressure is 146/80 with pulse of 60 and sinus, respirations are 16. She is afebrile. There is no further documentation of paroxysmal atrial fibrillation noted. HEENT: No JVD. CHEST: Bilateral scattered rhonchi with crackles at the bases heard. HEART: PMI displaced laterally. Systolic murmur is noted, lower left sternal border. ABDOMEN: Soft, obese, nontender, normoactive bowel sounds. EXTREMITIES: 2+ edema to her thighs. DIAGNOSTIC DATA: Potassium 3.8, BUN and creatinine are 19 and 0.7, glucose is 287. White count 11.5, hemoglobin and hematocrit 9.5 and 32.2 with platelet count of 481,000. Intake and output are not accurately recorded. IMPRESSION: 1. Recent dyspnea likely multifactorial. 2. Anemia, improved following transfusion. 3. Volume overload persists. 4. Stage III lung cancer for followup radiation therapy today. 5. Paroxysmal atrial fibrillation, remains in sinus rhythm at this time. 6. Rest of problems as noted. RECOMMENDATIONS: IV Lasix will be continued for now as well as oral Zaroxolyn. Is and Os will be monitored. Renal function will be monitored as well. Continued aggressive diuresis is planned. We will follow as needed. Vidal Fong MD
--- NOTE | 2018-08-14 12:01 | PN ---
DATE: 08/14/2018 PULMONARY PROGRESS NOTE REFERRING PHYSICIAN: Dr. Gibson. SUBJECTIVE: The patient is sitting up in bed. No acute distress. Reports shortness of breath with exertion, but is feeling much better. Cough has improved. No headache, rhinitis, chest pain, abdominal pain, nausea, vomiting, diarrhea, or leg pain reported. Does report bilateral lower extremity edema. OBJECTIVE: GENERAL: No acute distress. VITAL SIGNS: Blood pressure 146/81, pulse 58, temperature 97.6, and oxygen saturation 97% on nasal cannula. HEENT: Moist mucous membrane. Crowded airway. LUNGS: Scattered rhonchi bilaterally. No audible wheezing. CARDIOVASCULAR: S1 and S2 audible. ABDOMEN: Soft and nontender. No distention. No organomegaly. EXTREMITIES: Has bilateral lower extremity edema. NEUROLOGIC: Awake, alert, and verbal. Follows commands. MEDICATIONS: Reviewed. Tylenol 650 mg every 4 hours p.r.n., Mucomyst 4 mL inhalation twice a day, DuoNeb 3 mL inhalation four times a day p.r.n., Brovana 15 mcg every 12 hours, aspirin 81 mg daily, Lipitor 40 mg in the evening, bacitracin topically twice a day to affected area, Pulmicort 0.5 mg inhalation every 12 hours, doxycycline 100 mg every 12 hours, ergocalciferol 50,000 units every 7 days, Lasix 40 mg IV twice a day, Heparin 5000 units subcutaneous every 8 hours, Synthroid 125 mcg daily, Solu-Medrol 40 mg IV push every 12 hours, Zaroxolyn 5 mg daily, Lopressor 25 mg daily, Protonix 40 mg daily, and potassium chloride 20 mEq three times a day. LABORATORY DATA: Reviewed. WBC 11.5, RBC 4.42, hemoglobin 9.5, hematocrit 32.2, and platelets 481. Sodium 135, potassium 3.8, chloride 96, carbon dioxide 35, anion gap 8, BUN 19, creatinine 0.7, GFR greater than 60, random glucose 287 and calcium 8.7. Blood cultures preliminary shows no growth after 48 hours. IMPRESSION AND PLAN: Unresectable lung cancer narrowing of the right mainstem bronchus, bilateral pleural effusion, sleep apnea syndrome, morbid obesity, hypothyroidism, may be a component of heart failure. Pulmonary point of view, continue steroids, continue antibiotics, gastric prophylaxis, deep vein thrombosis prophylaxis, continue diuretics, continue continuous positive airway pressure use at bedtime and head of bed elevated at 45 degrees. Sleep apnea precaution. To be seen by Radiation Oncology. This patient was seen and examined with Dr. Feliz. Discussed assessment and plan as described above. Thank you for this consult. We will follow with you. Juan Richardson APN Hussein Feliz MD DAVID
--- NOTE | 2018-08-14 13:53 | CP.PCM.PN ---
Subjective - Date & Time of Evaluation Date of Evaluation: 08/14/18 Time of Evaluation: 11:00 - Subjective Subjective: Not in distress, cough is improving, no fevers. Objective - Vital Signs/Intake and Output Vital Signs (last 24 hours): Temp Pulse Resp BP Pulse Ox 97.6 F 60 22 146/81 97 08/14/18 08:19 08/14/18 09:59 08/14/18 08:19 08/14/18 09:59 08/14/18 08:19 - Medications Medications: Current Medications Acetaminophen (Tylenol 325mg Tab) 650 mg PO Q4 PRN PRN Reason: Fever >100.4 F Acetylcysteine (Acetylcysteine 20%) 4 ml IH BIDRESP [facility] Last Admin: 08/14/18 08:13 Dose: 4 ml Albuterol/Ipratropium (Duoneb 3 Mg/0.5 Mg (3 Ml) Ud) 3 ml IH 0330,1130,1930 PRN PRN Reason: Shortness of Breath Last Admin: 08/14/18 08:14 Dose: 3 ml Arformoterol Tartrate (Brovana) 15 mcg IH [id number] [facility] Last Admin: 08/14/18 08:13 Dose: 15 mcg Aspirin (Ecotrin) 81 mg PO DAILY [facility] Last Admin: 08/14/18 09:57 Dose: 81 mg Atorvastatin Calcium (Lipitor) 40 mg PO QPM [facility] Last Admin: 08/13/18 18:49 Dose: 40 mg Bacitracin (Bacitracin) 0 gm TOP BID [facility] Last Admin: 08/14/18 09:56 Dose: 1 appful Budesonide (Pulmicort Respules) 0.5 mg IH [id number] [facility] Last Admin: 08/14/18 08:13 Dose: 0.5 mg Doxycycline Hyclate (Doryx) 100 mg PO Q12 [facility]; Protocol Last Admin: 08/14/18 09:57 Dose: 100 mg Ergocalciferol (Drisdol 50,000 Intl Units Cap) 1 cap PO Q7D [facility] Last Admin: 08/11/18 20:53 Dose: 1 cap Furosemide (Lasix) 40 mg IV BID [facility] Last Admin: 08/14/18 09:58 Dose: 40 mg Heparin Sodium (Porcine) (Heparin) 5,000 units SC Q8 [facility]; Protocol Last Admin: 08/14/18 05:24 Dose: 5,000 units Home Med (Home Med) 0 unit PO BID [facility] Last Admin: 08/14/18 09:57 Dose: 1 unit Levothyroxine Sodium (Synthroid) 125 mcg PO 0600 [facility] Last Admin: 08/12/18 05:57 Dose: 125 mcg Methylprednisolone (Solu-Medrol) 40 mg IVP Q12 [facility] Last Admin: 08/14/18 10:00 Dose: 40 mg Metolazone (Zaroxolyn) 5 mg PO DAILY [facility] Stop: 08/15/18 10:01 Last Admin: 08/14/18 10:00 Dose: 5 mg Metoprolol Tartrate (Lopressor) 25 mg PO DAILY [facility] Last Admin: 08/14/18 09:59 Dose: 25 mg Pantoprazole Sodium (Protonix Ec Tab) 40 mg PO DAILY [facility] Last Admin: 08/14/18 09:59 Dose: 40 mg Potassium Chloride (Potassium Chloride Oral Soln) 20 meq PO TID [facility] Last Admin: 08/14/18 09:59 Dose: 20 meq - Labs Labs: 08/14/18 06:00 08/14/18 06:00 PT 13.6 SECONDS (9.4-12.5) H 08/11/18 15:18 INR 1.19 08/11/18 15:18 APTT 24.4 Seconds (25.1-36.5) L 08/11/18 15:18 - Constitutional Appears: Non-toxic, No Acute Distress, Chronically Ill - Head Exam Head Exam: NORMAL INSPECTION - ENT Exam ENT Exam: Mucous Membranes Moist - Neck Exam Neck Exam: absent: Lymphadenopathy, Meningismus - Respiratory Exam Respiratory Exam: Decreased Breath Sounds - Cardiovascular Exam Cardiovascular Exam: +S1, +S2 - GI/Abdominal Exam GI & Abdominal Exam: Soft. absent: Tenderness Assessment and Plan - Assessment and Plan (Free Text) Plan: Assessment probable right sided HCAP associated with lung mass lung cancer, non-small cell, stage 4 morbid obesity with BMI 40 dyslipidemia colon cancer Plan on Doxycycline day 4 for 4-7 days Overall prognosis is poor
--- NOTE | 2018-08-14 15:39 | PN ---
DATE: 08/14/2018 This is [facility] visit on the medical floor. For Dr. Adames. SUBJECTIVE: The patient is a 68-year-old female seen sitting up in bed with leg swelling better; however, the breathing is still somewhat compromised. She is for radiation later today with the patient otherwise slowly improving from her initial presentation of COPD exacerbation. She reports her appetite is good with steroids been cut back as per Dr. Feliz. OBJECTIVE/PHYSICAL EXAMINATION: VITAL SIGNS: Temperature is 97.6, pulse 60, respirations 22, blood pressure 146/81, pulse ox 97%. HEENT: Unremarkable. NECK: Supple. LUNGS: Occasional rhonchi. HEART: Regular rate. ABDOMEN: Obese, soft, nontender. EXTREMITIES: +1 edema bilaterally. NEUROLOGIC: Awake and alert. SKIN: With slowing healing of her dog scratches on her arms and leg. LABORATORY DATA: The patient's labs were done. White blood cell count of 11.5, hemoglobin of 9.5 with the patient having been transfused 1 unit of blood on 08/11, hematocrit of 32.2, platelet count of 481,000. Metabolic panel shows a chloride of 96, nonfasting glucose of 287. ASSESSMENT: The assessment for this patient is that of exacerbation of chronic obstructive pulmonary disease, stage III non-small cell cancer of the lung, stage II history cancer of the colon, hypothyroidism, bronchitis/early pneumonia, gastroesophageal reflux disease, obesity, degenerative joint disease, mild dementia, glaucoma, excoriations of the skin, anemia of chronic disease status post transfusion, hyperglycemia secondary to steroids, sleep apnea, history of paroxysmal atrial fibrillation. PLAN: For this patient is to continue her present medical regimen with adjustment as per Dr. Fong with Zaroxolyn now added to her regimen. Steroids were cut back as per Dr. Feliz and she is to continue her radiation today with Dr. Sarah Sinha. This is a complex patient with a comprehensive medically necessary and appropriate visit carried out in excess of 25 minutes with the patient's questions answered to her satisfaction. Gerard Gibson MD
[2018-08-15 07:02] LABS: BASO # 0.01 K/mm3 (0.0-2.0); BASO % 0.1 % (0.0-3.0); GRAN # 9.42 (1.4-6.5); GRAN % 90.4 % (50.0-68.0); HEMOGLOBIN 9.5 g/dL (12.0-16.0); LYMPH # 0.3 (1.2-3.4); LYMPH % 2.6 % (22.0-35.0); MEAN CORPUSCULAR HEMOGLOBIN 21.4 pg (25.0-35.0); MEAN CORPUSCULAR HGB CONC 29.3 g/dl (31.0-37.0); MEAN PLATELET VOLUME 9.3 fl (7.0-11.0); MONO # 0.7 (0.1-0.6); MONO % 6.9 % (1.0-6.0); PLATELET COUNT 473 10^3/uL (120.0-450.0); RBC 4.44 10^6/uL (3.5-6.1); RED CELL DISTRIBUTION WIDTH 24.2 % (11.5-14.5); WHITE BLOOD COUNT 10.4 10^3/uL (4.5-11.0)
[2018-08-15 07:15] LABS: BLOOD UREA NITROGEN 24 mg/dL (7-21); CALCIUM 8.5 mg/dL (8.4-10.5); GFR NON-AFRICAN AMERICAN > 60
[2018-08-15] MEDS: Acetylcysteine 20% Inhal Soln (4ml) IH SCH ×2 (07:59→21:31)
[2018-08-15] MEDS: Arformoterol 15 mcg/2 ml Inh Sol IH SCH ×2 (07:59→21:31)
[2018-08-15] MEDS: Albuterol-Ipratrop 3 mg / 0.5 (3 ml) UD IH PRN ×2 (07:59→13:04)
[2018-08-15] MEDS: Budesonide 0.5 mg/2 ml Inhal Susp UD IH SCH ×2 (07:59→21:33)
[2018-08-15 08:15] LABS: BAND 2 % (0-2); LYMPHOCYTE 3 % (22.0-35.0); MONOCYTE 2 % (1.0-6.0); NEUTROPHIL 90 % (50.0-70.0)
[2018-08-15 08:16] LABS: METAMYELOCYTE 2 %; MYELOCYTE 1 %
[2018-08-15 08:17] LABS: ANISOCYTOSIS 1+; HYPOCHROMIA 1+; PLATELET ESTIMATE HIGH (NORMAL); POLYCHROMASIA 1+
[2018-08-15 08:18] LABS: MICROCYTOSIS 1+; OVALOCYTES 1+
[2018-08-15] MEDS: Bacitracin Ointment 30 GM TUBE TOP SCH ×2 (09:59→17:42)
[2018-08-15] MEDS: XALKORI 250 MG PO SCH ×2 (10:00→17:42)
[2018-08-15] MEDS: MethylPREDNISolone 40 mg Vial IVP SCH ×2 (10:08→21:04)
[2018-08-15] MEDS: Pantoprazole 40 mg EC Tab PO SCH (10:08)
[2018-08-15] MEDS: Potassium Chloride 20 mEq/15 ml LIQ UD PO SCH ×3 (10:08→17:43)
[2018-08-15] MEDS: metOLazone 5 MG TAB PO SCH (10:10)
--- NOTE | 2018-08-15 10:41 | PN ---
DATE: 08/15/2018 SUBJECTIVE: The patient is seen sitting in bed, on telemetry. She is feeling better. She states she is ambulating better with less dyspnea. Her edema is improving. CURRENT MEDICATIONS: Include Mucomyst, bacitracin, Brovana, doxycycline, DuoNeb inhaler, Ecotrin, subcutaneous heparin, Lasix 40 mg IV b.i.d., Lipitor, metoprolol 25 mg daily, potassium supplement, Protonix, Pulmicort, Solu-Medrol, Synthroid, and Zaroxolyn 5 mg one additional day. OBJECTIVE: GENERAL: She is a middle-aged woman who appears comfortable at rest. VITAL SIGNS: Her blood pressure is 136/70 with pulse of 60, in sinus, respirations are 16. She is afebrile. HEENT: No JVD. CHEST: Few scattered rhonchi heard. HEART: PMI displaced laterally with no pathological gallops noted. ABDOMEN: Soft, obese, nontender with bowel sounds. EXTREMITIES: 1 to 2+ leg edema is present. Compression stockings are in place. DIAGNOSTIC DATA: Potassium is 4.5, BUN and creatinine 24 and 0.8, glucose is 327, bicarbonate is 37. White count 10.4, hemoglobin and hematocrit 9.5 and 32.4 with platelet count of 473,000. IMPRESSION: 1. Recent dyspnea, appears multifactorial. 2. Anemia, improved and stable. 3. Excessive peripheral edema, clinically improving. 4. Stage III lung cancer, undergoing radiation therapy. 5. Paroxysmal atrial fibrillation with no evidence of further recurrence. 6. Rest of problems as noted. RECOMMENDATIONS: IV Lasix and Zaroxolyn will be continued for today, eventually switching to oral Lasix administration will be planned and Zaroxolyn be discontinued once adequate diuresis has occurred. Of note, accurate I's and O's have not been recorded but the patient has expressed the fact that she has had significant diuresis over the past several days. We will continue to follow and make further recommendation as appropriate. Vidal Fong MD
--- NOTE | 2018-08-15 12:51 | PN ---
DATE: 08/15/2018 REFERRING PHYSICIAN: Gerard Gibson MD SUBJECTIVE: The patient is sitting up in chair in room, no acute distress. No overnight events reported. The patient does report feeling well this morning or feeling better this morning. No headache, rhinitis, cough, chest pain, abdominal pain, nausea, vomiting, diarrhea, or leg pain reported. The patient does report shortness of breath with exertion and lower extremity edema. The patient reports having radiation therapy yesterday. OBJECTIVE: VITAL SIGNS: Blood pressure 136/71, pulse 60, temperature 97.4, and oxygen saturation 94%. GENERAL: No acute distress. HEENT: Moist mucous membrane. Crowded airway. RESPIRATORY: Scattered rhonchi bilaterally. No audible wheezing. CARDIOVASCULAR: S1 and S2 audible. ABDOMEN: Soft and nontender. No distention. No organomegaly. EXTREMITIES: Bilateral lower extremity edema. NEUROLOGIC: Awake, alert, and verbal. Follows commands. MEDICATIONS: Reviewed. Tylenol 650 mg every 4 hours p.r.n. for fever, Mucomyst 4 mL inhalation twice a day, DuoNeb 3 mL inhalation three times a day p.r.n., Brovana 15 mcg every 12 hours, aspirin 81 mg daily, Lipitor 40 mg in the evening, bacitracin topically to affected area twice a day, Pulmicort 3.5 mg every 12 hours, ergocalciferol one cap every 7 days, Lasix 40 mg IV twice a day, heparin 5000 units subcu every 8 hours, Synthroid 125 mcg daily, Solu-Medrol 40 mg every 12 hours, Lopressor 25 mg daily, Protonix 40 mg daily, and potassium chloride oral solution 20 mEq three times a day. LABORATORY DATA: Reviewed. WBC 7.4, RBC 4.44, hemoglobin 9.5, hematocrit 32.4, and platelets 473. Sodium 134, potassium 4.5, chloride 94, carbon dioxide 37, anion gap 8, BUN 24, creatinine 0.8, GFR greater than 60, random glucose 324, and calcium 8.5. Blood cultures preliminary no growth after three days. IMPRESSION AND PLAN: Unresectable lung cancer, narrowing of the right mainstem bronchus, bilateral pleural effusion, sleep apnea syndrome, morbid obesity, hypothyroidism, may be a component of heart failure. Pulmonary point of view, continue steroids and current dose for now. Due to radiation, we will slowly taper, continue antibiotics, gastric prophylaxis, deep vein thrombosis prophylaxis, continue diuretics, continue continuous positive airway pressure use at bedtime, head of bed elevated at 45 degrees. Sleep apnea precaution. This patient was seen and examined with Dr. Feliz. Discussed assessment and plan as described above. Thank you for this consult. We will follow with you. Juan Richardson APN Hussein Feliz MD
--- NOTE | 2018-08-15 12:56 | PN ---
DATE: 08/15/2018 SUBJECTIVE: The patient is in bed, in no acute distress, nontoxic. OBJECTIVE: VITAL SIGNS: Temperature is 98, blood pressure is 112/70, respiratory rate of 16. HEENT: Unremarkable. NECK: Supple. LUNGS: Have decreased breath sounds. HEART: Normal S1, S2. ABDOMEN: Soft, nontender. LABORATORY EXAMINATION: Reveals a white count of 10,000, hemoglobin of 9. Chemistries reveals a BUN of 24, creatinine of 0.8. Microbiology reveals the blood cultures are negative. ASSESSMENT/PLAN: A 68-year-old female with probable right-sided healthcare-associated pneumonia associated with lung mass, on day #5 of doxycycline. The patient is doing much better. We will discontinue the doxycycline. The patient is also on Solu-Medrol. The patient is at risk for developing nosocomial infections. We will follow with you. Bayron Rooney MD
--- NOTE | 2018-08-15 20:29 | PN ---
DATE: 08/15/2018 This is [facility]'s [facility] visit on the medical floor. For Dr. Adames. SUBJECTIVE: The patient is a 68-year-old female, seen sitting up in bed with her lower extremity edema significantly improved with breathing still moderately compromised but better than admission. The patient does suffer from stage III non-small cell CA of the lung and is otherwise noted to have her steroids been cut back and continues to take her Xalkori as per Dr. Adames's recommendation. OBJECTIVE/PHYSICAL EXAMINATION: VITAL SIGNS: Temperature 97.5, pulse 67, respirations 20, blood pressure 116/66, pulse ox 92%. HEENT: Unremarkable. NECK: Supple. HEART: Regular rate. LUNGS: Occasional rhonchi. ABDOMEN: Obese, soft, nontender. EXTREMITIES: Slow improvement of the lower extremity edema noted. NEUROLOGIC: Awake and alert. The patient's labs were done with the patient continued to have slight anemic indices with her thyroid medication on hold, we will repeat the labs in the morning. LABORATORY DATA: White blood cell count of 10.4, hemoglobin 9.5, hematocrit 32.4, platelet count of 473,000. Status post transfusion of 1 unit of packed red blood cells on 08/11/2018. ASSESSMENT AND PLAN: The assessment for this patient is that of exacerbation of chronic obstructive pulmonary disease, stage III non-small cell cancer of the lung, stage III history cancer of the colon cancer, hypothyroidism, bronchitis/early pneumonia, gastroesophageal reflux disease, obesity, degenerative joint disease, mild dementia, excoriations of the skin, anemia of chronic disease, hyperglycemia secondary to steroids, sleep apnea, history of paroxysmal atrial fibrillation with the patient now reporting she has had diagnosis of glaucoma and so that she does not take her eyedrops faithfully. She also has antiembolism hose on the feet. Plan for this patient is to continue present medical regimen with Xalkori taken twice a day along with her diuretic and other medications as listed with steroids cut back yesterday by Dr. Feliz. This is a complex patient with a comprehensive medically necessary and appropriate visit carried out in excess of 20 minutes with the patient's questions answered to her satisfaction. We will check her TSH in the morning and restart her Synthroid as indicated. Gerard MD Arthur
[2018-08-16 06:53] LABS: ALB/GLOB RATIO 0.8 (1.1-1.8); ALBUMIN 2.9 g/dL (3.0-4.8); ALT/SGPT 57 U/L (7-56); AST/SGOT 23 U/L (14-36); BLOOD UREA NITROGEN 26 mg/dL (7-21); CALCIUM 8.7 mg/dL (8.4-10.5); GFR NON-AFRICAN AMERICAN > 60
[2018-08-16 07:02] LABS: BASO # 0.01 K/mm3 (0.0-2.0); BASO % 0.1 % (0.0-3.0); GRAN # 9.42 (1.4-6.5); GRAN % 93.2 % (50.0-68.0); HEMOGLOBIN 9.9 g/dL (12.0-16.0); LYMPH # 0.5 (1.2-3.4); MEAN CELL VOLUME 73.5 fl (80.0-105.0); MEAN CORPUSCULAR HEMOGLOBIN 21.7 pg (25.0-35.0); MEAN CORPUSCULAR HGB CONC 29.5 g/dl (31.0-37.0); MEAN PLATELET VOLUME 9.6 fl (7.0-11.0); MONO # 0.2 (0.1-0.6); MONO % 1.7 % (1.0-6.0); RBC 4.57 10^6/uL (3.5-6.1); RED CELL DISTRIBUTION WIDTH 24.4 % (11.5-14.5); WHITE BLOOD COUNT 10.1 10^3/uL (4.5-11.0)
[2018-08-16] MEDS: Arformoterol 15 mcg/2 ml Inh Sol IH SCH ×2 (07:12→20:59)
[2018-08-16] MEDS: Acetylcysteine 20% Inhal Soln (4ml) IH SCH ×2 (07:13→21:01)
[2018-08-16] MEDS: Budesonide 0.5 mg/2 ml Inhal Susp UD IH SCH ×2 (07:13→20:59)
[2018-08-16] MEDS ORDERED: Insulin Reg-LOW-Coverage SC SCH (08:30)
[2018-08-16] MEDS: Pantoprazole 40 mg EC Tab PO SCH (09:10)
[2018-08-16] MEDS: MethylPREDNISolone 40 mg Vial IVP SCH ×2 (09:13→22:34)
[2018-08-16] MEDS: XALKORI 250 MG PO SCH ×2 (09:14→17:07)
[2018-08-16] MEDS: Potassium Chloride 20 mEq/15 ml LIQ UD PO SCH ×3 (09:14→17:11)
[2018-08-16] MEDS: Bacitracin Ointment 30 GM TUBE TOP SCH ×2 (09:14→17:06)
[2018-08-16] MEDS ORDERED: Insulin Lispro 1 UNITS/0.01 ML ONE (13:08)
[2018-08-16] MEDS: Insulin Lispro (humaLOG) LOW Coverage SC SCH ×3 (13:56→22:34)
--- NOTE | 2018-08-16 16:59 | PN ---
DATE: 08/16/2018 REFERRING PHYSICIAN: Gerard Gibson MD. SUBJECTIVE: The patient is sitting up in bed in no acute distress. No overnight events reported. The patient reports using CPAP machine last night. The patient does report some shortness of breath with exertion on occasion. No headache, rhinitis, cough, chest pain, abdominal pain, nausea, vomiting, diarrhea, leg pain reported. The patient reports improvement in bilateral lower extremity edema. OBJECTIVE: VITAL SIGNS: Blood pressure 142/81, pulse 67, temperature 97.4. GENERAL: No acute distress. HEENT: Moist mucous membranes. Crowded airway. RESPIRATORY: Scattered rhonchi bilaterally. CARDIOVASCULAR: S1, S2 audible. ABDOMEN: Soft, nontender. No distention. No organomegaly. EXTREMITIES: Bilateral lower extremity edema. NEUROLOGIC: Awake, alert, and verbal. Follows commands. MEDICATIONS: Reviewed. Tylenol 650 every 4 hours p.r.n., Mucomyst 4 mL inhalation twice a day, DuoNeb 3 mL inhalation three times a day p.r.n., Brovana 15 mcg every 12 hours, aspirin 81 mg daily, Lipitor 40 mg in the evening, bacitracin topically twice a day to affected area, Pulmicort 0.5 mg every 12 hours, ergocalciferol 50,000 units every 7 days, Lasix 40 mg twice a day, heparin 5000 units subcu every 8 hours, Levemir 24 units at bedtime, Humalog morning and at bedtime sliding scale, Humalog 6 units morning, Synthroid 100 mcg in the morning, Solu-Medrol 40 mg every 12 hours, Lasix 25 mg daily, Protonix 40 mg daily, potassium chloride 40 mEq three times a day. LABORATORY DATA: Reviewed. WBC 10.1, RBC 4.57, hemoglobin 9.9, hematocrit 33.6, and platelets 523. Sodium 131, potassium 4.4, chloride 90, carbon dioxide 37, anion gap 9, BUN 26, creatinine 0.8, GFR greater than 60, POC glucose greater than 500, random glucose 402, calcium 8.7, total bilirubin 0.5. AST 23, ALT 57, alkaline phosphatase 121, total protein 6.4, albumin 2.9, globulin 3.5, albumin globulin ratio 0.8. TSH 0.02. Blood cultures preliminary no growth after four days. IMPRESSION AND PLAN: Unresectable lung cancer, narrowing of right mainstem bronchus, bilateral pleural effusion, sleep apnea syndrome, morbid obesity, hypothyroidism, possible component of heart failure. Pulmonary point of view, we will continue current dose of steroids and consider tapering steroids slowly. Continue gastric prophylaxis, deep venous thrombosis prophylaxis, continue diuretics, continue compression stockings bilateral lower extremities, continue continuous positive airway pressure use at bedtime, head of bed elevated at 45 degrees. Sleep apnea precaution. The patient currently undergoing radiation therapy. This patient was seen and examined with Dr. Feliz. Discussed assessment and plan as described above. Thank you for this consult. We will follow with you. Juan Richardson APN Hussein Feliz MD
[2018-08-16] MEDS: Insulin Lispro 1 UNITS/0.01 ML SC SCH (17:07)
[2018-08-16] MEDS ORDERED: Insulin Detemir 100 units/ml Vial (Levemir) SC SCH (22:00)
--- NOTE | 2018-08-17 01:33 | CON ---
DATE: 08/16/2018 ENDOCRINOLOGY CONSULTATION LOCATION: Room 362 HISTORY OF PRESENT ILLNESS: This is a 68-year-old female with non-small cell lung carcinoma, presenting here with progressive shortness of breath and productive cough with low-grade fever and also has been evaluated to have acute exacerbation of COPD with underlying pleural effusion and is now being referred for diabetic evaluation because of supervening hyperglycemic accelerations as noted thereof. PAST MEDICAL HISTORY: History of diabetic accelerations only for inpatient admissions with IV steroid therapy as given, but the patient is not on any kind of oral hypoglycemic drug therapy. History of hypertension and dyslipidemia. History of chronic anemia. History of hypothyroidism, on levothyroxine given as 125 mcg daily. History of non-small cell lung carcinoma stage III. History of chronic obstructive lung disease with multiple admissions for exacerbations of the same. History of colon carcinoma with a prior colonic resection as noted. FAMILY HISTORY: Positive for hypertension and heart disease. SOCIAL HISTORY: The patient is a former smoker. No known substance use. She has no other known substance use. Has a supportive family otherwise. REVIEW OF SYSTEMS: Admits to generalized body weakness with increasing bouts of dizziness and lightheadedness with suboptimal energy level. No chest pains or palpitations, but admits to progressive shortness of breath initially on exertion and then at rest with paroxysmal nocturnal dyspnea. Her oral intake is variable and suboptimal with habitual constipation. PHYSICAL EXAMINATION: GENERAL: This is an overweight female in no apparent distress. VITAL SIGNS: Blood pressure of 150/90, pulse of 100 beats per minute and regular, temperature 98, respirations 20. Height is 5 feet 7 inches, weight is 250 pounds. HEENT: Head normocephalic. Eyes anicteric with pale conjunctivae. Funduscopy not possible at this time. Ears, nose and throat otherwise normal. NECK: Supple. Thyroid gland is normal in size. No carotid bruits or any cervical adenopathy. CARDIOPULMONARY: Adynamic precordium. S1, S2 is rapid and regular. LUNGS: Show scattered rhonchi with bibasilar rales. ABDOMEN: Obese, soft with positive bowel sounds. EXTREMITIES: No peripheral edema. Pulses are +2 bilaterally. LABORATORY DATA: Chemistries BUN of 26, sodium 131, potassium 4.4, chloride 90, CO2 37, glucose 402 and creatinine 0.8. Her TSH is less than 0.02. ASSESSMENT: This is a 68-year-old female with uncontrolled and decompensated type 2 insulin-requiring diabetes with transient hyperglycemic accelerations with the intercurrent IV steroid therapy as given from the increased insulin resistance thereof. She also has a suppressed TSH, most likely related to the intercurrent IV steroids, which contribute to the TSH suppression, also we have to exclude the possibility of levothyroxine over replacement therapy. PLAN OF MANAGEMENT: We will hold the levothyroxine dosing at this time to allow a therapeutic washout and restart her on a much lower dose in 3 days at levothyroxine of 100 mcg daily as ordered. We will also initiate a basal and bolus insulin drug combination just for inpatient diabetic management so long as she is on the IV steroid therapy as given. We will start her with Levemir given as 24 units SubQ at bedtime daily to start tonight. We will also add Humalog given as 6 units t.i.d. before meals as ordered. We will modify the coverage scale to avoid hypoglycemia and detailed orders have been given. We will follow and advise accordingly. We will also add a hemoglobin A1c to confirm her prior glycemic control and repeat the thyroid studies accordingly. Crystal Mcgregor MD
--- NOTE | 2018-08-17 01:34 | PN ---
DATE: 08/16/2018 SUBJECTIVE: The patient is seen early this morning in room 362, bed 2. She is doing better. Less short of breath. No fevers, no chills, no nausea. OBJECTIVE: VITAL SIGNS: On exam, temperature is 98, blood pressure is 118/70, respiratory rate 18, hear rate of 90. HEENT: Unremarkable. NECK: Supple. LUNGS: Have decreased breath sounds. HEART: Normal S1, S2. ABDOMEN: Soft, nontender. LABORATORY EXAMINATION: Reveals a white count of 10,000, hemoglobin of 9. Chemistries are noted. Microbiology reveals the blood cultures are negative. Review of orders reveals the patient to be off of antibiotics. ASSESSMENT AND PLAN: This is a 68-year-old female with probable right-sided healthcare-associated pneumonia with a lung mass and completed antibiotics, currently off of antibiotics, afebrile. The patient is at risk for developing nosocomial infections. We will follow with you. Bayron Rooney MD
[2018-08-17 07:12] LABS: FREE T4 0.68 ng/dL (0.78-2.19); T4 3.1 ug/dL (5.5-11.0)
[2018-08-17 07:25] LABS: ALB/GLOB RATIO 0.8 (1.1-1.8); ALBUMIN 2.8 g/dL (3.0-4.8); ALT/SGPT 56 U/L (7-56); AST/SGOT 27 U/L (14-36); BLOOD UREA NITROGEN 29 mg/dL (7-21); CALCIUM 8.2 mg/dL (8.4-10.5); GFR NON-AFRICAN AMERICAN > 60
[2018-08-17] MEDS: Arformoterol 15 mcg/2 ml Inh Sol IH SCH ×2 (08:30→19:10)
[2018-08-17] MEDS: Acetylcysteine 20% Inhal Soln (4ml) IH SCH ×2 (08:30→19:10)
[2018-08-17] MEDS: Budesonide 0.5 mg/2 ml Inhal Susp UD IH SCH ×2 (08:30→19:11)
[2018-08-17] MEDS: Insulin Lispro 1 UNITS/0.01 ML SC SCH ×3 (08:37→17:56)
[2018-08-17] MEDS: Insulin Lispro (humaLOG) LOW Coverage SC SCH ×4 (08:40→22:03)
--- NOTE | 2018-08-17 12:12 | PN ---
DATE: 08/17/2018 PULMONARY PROGRESS NOTE REFERRING PHYSICIAN: Dr. Gibson SUBJECTIVE: The patient is sitting up in bed. Reports feeling well today. Reports improvement in shortness of breath. No overnight events reported. Reports using CPAP machine last night. No headache, rhinitis, cough, chest pain, abdominal pain, nausea, vomiting, diarrhea and leg pain reported. The patient reports improvement in leg swelling. OBJECTIVE GENERAL: No acute distress. VITAL SIGNS: Blood pressure 128/70, pulse 60, temperature 97.3, oxygen saturation 95%. HEENT: Moist mucous membranes. Crowded airway. RESPIRATORY: Scattered rhonchi bilaterally. CARDIOVASCULAR: S1 and S2, audible. ABDOMEN: Soft and nontender. No distention. No organomegaly. EXTREMITIES: Improving bilateral lower extremity edema. NEUROLOGICAL: Awake, alert and verbal. Follows commands. MEDICATIONS: Reviewed. Tylenol 650 every 4 hours p.r.n. fever greater than 100.4, Mucomyst 4 mL inhalation twice a day, DuoNeb 3 mL inhalation three times a day p.r.n., Brovana 15 mcg every 12 hours, aspirin 81 mg daily, Lipitor 40 mg in the evening, bacitracin topically twice a day to affected area, Pulmicort 0.5 mg every 12 hours, ergocalciferol 50,000 units every 7 days, Lasix 40 mg IV twice a day, heparin 5000 units subcutaneous every 8 hours, Levemir 34 units subcutaneous at bedtime, Humalog sliding scale a.c. at bedtime, Humalog 14 units subcutaneous a.c, Synthroid 100 mcg in the morning, Solu-Medrol 20 mg every 12 hours, Lopressor 25 mg daily, Protonix 40 mg daily, potassium chloride solution 20 mEq three times a day. LABORATORY DATA: Reviewed. Sodium 130, potassium 4.3, chloride 89, carbon dioxide 36, anion gap 10, BUN 29, creatinine 0.8, GFR is greater than 60, POC glucose 302, random glucose 341, calcium 8.2, magnesium 1.8, total bilirubin 0.6, AST 27, ALT 56, alkaline phosphatase 112, total protein 6.1, albumin 2.8, globulin 3.3, albumin-globulin ratio 0.8, free T4 0.68, T4 3.1 and TSH 0.02. Blood culture final no growth after 5 days. IMPRESSION AND PLAN: Unresectable lung cancer, narrowing of right mainstem bronchus, bilateral pleural effusion, sleep apnea syndrome, morbid obesity, hypothyroidism. Pulmonary point of view, continue steroids, we will taper slowly. Continue gastric prophylaxis and deep venous thrombosis prophylaxis. Continue compression stockings bilateral lower extremities. Continue continuous positive airway pressure use at bedtime. Sleep apnea precaution. Head of bed elevated at 45 degrees. Continue diuretics. Monitor labs. The patient currently undergoing radiation therapy.will continue monitor closely for any airway edema. May benefit from TCU care This patient was seen and examined with Dr. Feliz. Discussed assessment and plan as described above. Thank you for this consult. We will follow with you. Juan Richardson APN Hussein Feliz MD DAVID
[2018-08-17] MEDS: Potassium Chloride 20 mEq/15 ml LIQ UD PO SCH ×3 (12:22→17:47)
[2018-08-17] MEDS: Bacitracin Ointment 30 GM TUBE TOP SCH ×2 (12:22→17:48)
[2018-08-17] MEDS: MethylPREDNISolone 40 mg Vial IVP SCH (12:22)
[2018-08-17] MEDS: XALKORI 250 MG PO SCH ×2 (12:23→17:49)
[2018-08-17] MEDS: Pantoprazole 40 mg EC Tab PO SCH (12:23)
--- NOTE | 2018-08-17 13:53 | PN ---
DATE: 08/17/2018 ENDO FOLLOWUP NOTE ROOM: 362 SUBJECTIVE: This is a 68-year-old female with lung carcinoma, admitted here with acute exacerbation of COPD, currently placed on intercurrent IV steroid therapy with supervening marked hyperglycemic accelerations as temporarily expected thereof. Her glucose levels overnight are fluctuating and have ranged from 286-297 and 302 mg/dL. Her latest chemistry showed a BUN of 29, sodium 130, potassium 4.3, chloride 89, CO2 of 36, glucose 341 and creatinine 0.8. Her thyroid study showed a T4 or thyroxine level of 3.1 with a free T4 of 0.68 and a TSH of 0.02. ASSESSMENT: This is a 68-year-old female with uncontrolled and decompensated type 2 insulin-requiring diabetes with marked hyperglycemic accelerations related to the intercurrent steroid therapy which temporarily increases insulin resistance and further impaired glucose tolerance thereof. She also has underlying stage III lung carcinoma as noted with underlying chronic obstructive pulmonary disease with acute exacerbation as noted thereof. PLAN OF MANAGEMENT: We will modify once again her basal and bolus insulin regimen given only for inpatient diabetic management. We will increase the Levemir to 34 units subcu at bedtime daily to start tonight. We will also increase the Humalog to 14 units subcu t.i.d. before meals as ordered. We will also continue the low-dose correction scale using Humalog insulin as given to obviate hypoglycemia and detailed orders have been given. We will obtain serial chemistries and supplement accordingly as needed. We will also taper down her insulin regimen as her IV steroids are tapered down accordingly. We are waiting the results of the hemoglobin A1c which will determine the need for any long-term oral hypoglycemic drug therapy as indicated. We will obtain serial chemistries and supplement accordingly as needed. We will follow and advise accordingly. Crystal Mcgregor MD
--- NOTE | 2018-08-17 14:52 | PN ---
DATE: 08/17/2018 SUBJECTIVE: The patient is seen lying in bed on remote telemetry. She is feeling better. Her edema is significantly improved. Her current medications include Mucomyst, Brovana, DuoNeb inhaler, Ecotrin, subcutaneous heparin, insulin, Lasix 40 mg IV b.i.d., Lipitor, metoprolol 25 mg daily, Protonix, Pulmicort, Solu-Medrol, and Synthroid. OBJECTIVE: GENERAL: She is an overweight middle-aged woman. VITAL SIGNS: Blood pressure is 128/70 with a pulse of 60 and respirations are 16. She is afebrile. HEENT: No JVD. CHEST: Bilateral scattered rhonchi. No rales noted. HEART: PMI displaced laterally with systolic murmur at left sternal border. ABDOMEN: Soft, obese, nontender with bowel sounds. EXTREMITIES: 1+ ankle edema. DIAGNOSTIC DATA: Potassium 4.3, sodium is 130, BUN and creatinine 29 and 0.8, glucose 341. TSH 0.02. IMPRESSION: 1. Recent dyspnea, multifactorial in part due to volume overload, which is clinically improved. 2. Anemia, stable at this time. 3. Stage III lung cancer, undergoing radiation therapy. 4. Paroxysmal atrial fibrillation with no evidence of significant recurrence. 5. Rest of the problems as noted. RECOMMENDATIONS: IV Lasix can be switched to oral administration tomorrow. Sodium and fluid restriction should continue. The rest of her cardiac medications will continue unchanged. We will follow along as needed. Vidal Fong MD MTDD
--- NOTE | 2018-08-17 15:44 | CP.PCM.APN ---
Subjective - Date & Time of Evaluation Date of Evaluation: 08/17/18 Time of Evaluation: 09:45 - Subjective Subjective: Pt. seen and examined at bedside,states breathing has improved, using CPAP at night, denied chest pain, fever or chills. Review of Systems - Constitutional Constitutional: Fever - Cardiovascular Cardiovascular: Pedal Edema - Respiratory Respiratory: Cough Objective - Vital Signs/Intake and Output Vital Signs (last 24 hours): Temp Pulse Resp BP Pulse Ox 97.3 F L 67 20 142/80 95 08/17/18 08:15 08/17/18 12:23 08/17/18 08:15 08/17/18 12:23 08/17/18 08:15 Intake and Output: 08/17/18 08/17/18 06:59 18:59 Intake Total 360 Balance 360 - Medications Medications: Current Medications Acetaminophen (Tylenol 325mg Tab) 650 mg PO Q4 PRN PRN Reason: Fever >100.4 F Acetylcysteine (Acetylcysteine 20%) 4 ml IH BIDRESP [facility] Last Admin: 08/17/18 08:30 Dose: 4 ml Albuterol/Ipratropium (Duoneb 3 Mg/0.5 Mg (3 Ml) Ud) 3 ml IH 0330,1130,1930 PRN PRN Reason: Shortness of Breath Last Admin: 08/15/18 13:04 Dose: 3 ml Arformoterol Tartrate (Brovana) 15 mcg IH [id number] [facility] Last Admin: 08/17/18 08:30 Dose: 15 mcg Aspirin (Ecotrin) 81 mg PO DAILY [facility] Last Admin: 08/17/18 12:23 Dose: 81 mg Atorvastatin Calcium (Lipitor) 40 mg PO QPM [facility] Last Admin: 08/16/18 17:05 Dose: 40 mg Bacitracin (Bacitracin) 0 gm TOP BID [facility] Last Admin: 08/17/18 12:22 Dose: 1 appful Budesonide (Pulmicort Respules) 0.5 mg IH [id number] [facility] Last Admin: 08/17/18 08:30 Dose: 0.5 mg Ergocalciferol (Drisdol 50,000 Intl Units Cap) 1 cap PO Q7D [facility] Last Admin: 08/11/18 20:53 Dose: 1 cap Furosemide (Lasix) 40 mg IV BID [facility] Last Admin: 08/17/18 12:22 Dose: 40 mg Heparin Sodium (Porcine) (Heparin) 5,000 units SC Q8 [facility]; Protocol Last Admin: 08/17/18 15:29 Dose: 5,000 units Home Med (Home Med) 0 unit PO BID [facility] Last Admin: 08/17/18 12:23 Dose: 1 unit Insulin Detemir (Levemir) 34 unit SC HS [facility] Insulin Human Lispro (Humalog Low) 0 units SC ACHS [facility]; Protocol Last Admin: 08/17/18 12:24 Dose: Not Given Insulin Human Lispro (Humalog) 14 units SC AC [facility] Last Admin: 08/17/18 12:24 Dose: 14 units Levothyroxine Sodium (Synthroid) 100 mcg PO ACB [facility] Methylprednisolone (Solu-Medrol) 20 mg IVP Q12 [facility] Last Admin: 08/17/18 12:22 Dose: 20 mg Metoprolol Tartrate (Lopressor) 25 mg PO DAILY [facility] Last Admin: 08/17/18 12:23 Dose: 25 mg Pantoprazole Sodium (Protonix Ec Tab) 40 mg PO DAILY [facility] Last Admin: 08/17/18 12:23 Dose: 40 mg Potassium Chloride (Potassium Chloride Oral Soln) 20 meq PO TID [facility] Last Admin: 08/17/18 15:29 Dose: 20 meq - Labs Labs: 08/16/18 06:15 08/17/18 06:00 PT 13.6 SECONDS (9.4-12.5) H 08/11/18 15:18 INR 1.19 08/11/18 15:18 APTT 24.4 Seconds (25.1-36.5) L 08/11/18 15:18 - Constitutional Appears: Well, Non-toxic - Head Exam Head Exam: NORMAL INSPECTION, NORMOCEPHALIC - Eye Exam Eye Exam: Normal appearance - ENT Exam ENT Exam: Mucous Membranes Moist, Normal Exam - Neck Exam Neck Exam: Full ROM - Respiratory Exam Respiratory Exam: Clear to Ausculation Bilateral, NORMAL BREATHING PATTERN - Cardiovascular Exam Cardiovascular Exam: REGULAR RHYTHM, +S1, +S2 - GI/Abdominal Exam GI & Abdominal Exam: Soft, Normal Bowel Sounds - Rectal Exam Rectal Exam: Deferred - Extremities Exam Extremities Exam: Full ROM, Pedal Edema Additional comments: +2 b/l edema noted Assessment and Plan - Assessment and Plan (Free Text) Assessment: Impressions Chest CT 08/11/18 14:30 IMPRESSION: Small bilateral pleural effusion, right greater than left. Right hilar mass and right upper lobe/parahilar mass, unchanged from prior examination of 06/28/2018. extensive right hilar and mediastinal lymphadenopathy. Scattered tiny nodules in the right lung common nonspecific. Cannot rule out metastasis. Narrowing of a right upper lobe segmental bronchus with atelectasis. The degree of atelectasis is decreased compared to the prior examination. Minimal right lower lobe compressive atelectasis. Laboratory Results WBC 10.1 10^3/uL (4.5-11.0) 08/16/18 06:15 RBC 4.57 10^6/uL (3.5-6.1) 08/16/18 06:15 Hgb 9.9 g/dL (12.0-16.0) L 08/16/18 06:15 Hct 33.6 % (36.0-48.0) L 08/16/18 06:15 MCV 73.5 fl (80.0-105.0) L 08/16/18 06:15 MCH 21.7 pg (25.0-35.0) L 08/16/18 06:15 MCHC 29.5 g/dl (31.0-37.0) L 08/16/18 06:15 RDW 24.4 % (11.5-14.5) H 08/16/18 06:15 Plt Count 523 10^3/uL (120.0-450.0) H 08/16/18 06:15 MPV 9.6 fl (7.0-11.0) 08/16/18 06:15 Gran % 93.2 % (50.0-68.0) H 08/16/18 06:15 Lymph % (Auto) 5.0 % (22.0-35.0) L 08/16/18 06:15 [place] % (Auto) 1.7 % (1.0-6.0) 08/16/18 06:15 Eos % (Auto) 0.0 % (1.5-5.0) L 08/16/18 06:15 Baso % (Auto) 0.1 % (0.0-3.0) 08/16/18 06:15 Gran # 9.42 (1.4-6.5) H 08/16/18 06:15 Lymph # (Auto) 0.5 (1.2-3.4) L 08/16/18 06:15 [place] # (Auto) 0.2 (0.1-0.6) 08/16/18 06:15 Eos # (Auto) 0.0 (0.0-0.7) 08/16/18 06:15 Baso # (Auto) 0.01 K/mm3 (0.0-2.0) 08/16/18 06:15 Neutrophils % (Manual) 90 % (50.0-70.0) H 08/15/18 06:30 Band Neutrophils % 2 % (0-2) 08/15/18 06:30 Lymphocytes % (Manual) 3 % (22.0-35.0) L 08/15/18 06:30 Monocytes % (Manual) 2 % (1.0-6.0) 08/15/18 06:30 Eosinophils % (Manual) 1 % (0.0-3.0) 08/12/18 05:30 Metamyelocytes % 2 % 08/15/18 06:30 Myelocytes % 1 % 08/15/18 06:30 Toxic Granulation 2+ 08/12/18 05:30 Platelet Evaluation High (NORMAL) 08/15/18 06:30 Polychromasia 1+ 08/15/18 06:30 Hypochromasia 1+ 08/15/18 06:30 Basophilic Stippling Slight 08/15/18 06:30 Anisocytosis (manual) 1+ 08/15/18 06:30 Microcytosis (manual) 1+ 08/15/18 06:30 Target Cells 1+ 08/12/18 05:30 Ovalocytes 1+ 08/15/18 06:30 Rouleaux 1+ 08/12/18 05:30 PT 13.6 SECONDS (9.4-12.5) H 08/11/18 15:18 INR 1.19 08/11/18 15:18 APTT 24.4 Seconds (25.1-36.5) L 08/11/18 15:18 pO2 49 mm/Hg (30-55) 08/11/18 15:18 VBG pH 7.46 (7.32-7.43) H 08/11/18 15:18 VBG pCO2 43.0 (40-60) 08/11/18 15:18 VBG HCO3 30.6 mmol/l (21-28) H 08/11/18 15:18 VBG Total CO2 31.9 mmol.L (22-28) H 08/11/18 15:18 VBG O2 Sat (Calc) 85.4 % (40-65) H 08/11/18 15:18 VBG Base Excess 6.0 mmol/L (0.0-2.0) H 08/11/18 15:18 VBG Potassium 4.3 mmol/L (3.6-5.2) 08/11/18 15:18 Sodium 135.0 mmol/L (132-148) 08/11/18 15:18 Chloride 102.0 mmol/L (98-107) 08/11/18 15:18 Glucose 105 mg/dl (65-105) 08/11/18 15:18 Lactate 1.0 mmol/L (0.7-2.1) 08/11/18:18 FiO2 21.0 % 08/11/18 15:18 Sodium 130 mmol/L (132-148) L 08/17/18 06:00 Potassium 4.3 mmol/L (3.6-5.0) 08/17/18 06:00 Chloride 89 mmol/L (98-107) L 08/17/18 06:00 Carbon Dioxide 36 mmol/L (21-33) H 08/17/18 06:00 Anion Gap 10 (10-20) 08/17/18 06:00 BUN 29 mg/dL (7-21) H 08/17/18 06:00 Creatinine 0.8 mg/dl (0.7-1.2) 08/17/18 06:00 Est GFR ( Amer) > 60 08/17/18 06:00 Est GFR (Non-Af Amer) > 60 08/17/18 06:00 POC Glucose (mg/dL) 283 mg/dL (65-110) H 08/17/18 15:44 Random Glucose 341 mg/dL (70-110) H* 08/17/18 06:00 Hemoglobin A1c 7.7 % (4.2-6.5) H 08/17/18 06:00 Calcium 8.2 mg/dL (8.4-10.5) L 08/17/18 06:00 Magnesium 1.8 mg/dL (1.7-2.2) 08/17/18 06:00 Total Bilirubin 0.6 mg/dL (0.2-1.3) 08/17/18 06:00 AST 27 U/L (14-36) 08/17/18 06:00 ALT 56 U/L (7-56) 08/17/18 06:00 Alkaline Phosphatase 112 U/L (38-126) 08/17/18 06:00 Troponin I < 0.01 ng/mL D 08/11/18 15:18 Total Protein 6.1 g/dL (5.8-8.3) 08/17/18 06:00 Albumin 2.8 g/dL (3.0-4.8) L 08/17/18 06:00 Globulin 3.3 gm/dL 08/17/18 06:00 Albumin/Globulin Ratio 0.8 (1.1-1.8) L 08/17/18 06:00 Procalcitonin 0.25 NG/ML (0.19-0.49) 08/11/18 20:30 Free T4 0.68 ng/dL (0.78-2.19) L 08/17/18 06:00 Thyroxine (T4) 3.1 ug/dL (5.5-11.0) L 08/17/18 06:00 TSH 3rd Generation 0.02 mIU/mL (0.46-4.68) L 08/17/18 06:00 Venous Blood Potassium 4.3 mmol/L (3.6-5.2) 08/11/18 15:18 Blood Type O POSITIVE 08/11/18 19:20 Antibody Screen Negative 08/11/18 19:20 Crossmatch See Detail 08/11/18 19:20 BBK History Checked Patient has bt 08/11/18 19:20 Assessment/Plan: 68 year old female, past medical history includes hypothyroidism, anemia, degenerative joint disease, non-small cell lung cancer, adenocarcinoma, colon cancer, and COPD, presents to the emergency department for further evaluation of shortness of breath. The patient was advised to come into the emergency departme nt by Dr. Rao, admitted with b/l pleural effusions. 1. COPD Exac -Continue Solumedrol 20 IV q12, per pulmonolgist, will need 1 more day of iV steroids, CPAP at night 2. B/l pleural effusions with B/L LE Edema improving - Receiving Lasix IV,bid, per cardiology can change to PO Lasix 3. Stage 3 Non small cell Lung CA - Unresectable, currently receiving radiation treatment Day 16 of 30 total treatments. 4. Narrowing of right upper lobe segment of bronchus with atelectasis right hilar mass, -continue Iv solumedrol taper as per lap hand tool. Monitor respiratory status, currently no dyspnea on exertion, no dyspnea with ambulation. pT has evaluated patient, recommended home with services. Per PMD advises monitoring of respiratory status , after receiving radiation. Will continue to monitor clinical status and follow closely.
--- NOTE | 2018-08-17 20:31 | PN ---
DATE: 08/17/2018 SUBJECTIVE: The patient is in bed, in no acute distress, nontoxic. PHYSICAL EXAMINATION: VITAL SIGNS: Temperature is 97, blood pressure is 115/70, respiratory rate 21, heart rate of 53. HEENT: Unremarkable. NECK: Supple. LUNGS: Have decreased breath sounds. HEART: Normal S1 and S2. ABDOMEN: Soft. LABORATORY EXAMINATION: Reveals white count of 10,000, hemoglobin of 9. Chemistries are BUN of 29, creatinine of 0.8. Blood cultures are negative. REVIEW OF ORDERS: Reveals the patient is on Solu-Medrol. ASSESSMENT AND PLAN: This is a 68-year-old female with right-sided healthcare-associated pneumonia, lung mass, has completed antibiotic therapy, currently off of antibiotics, afebrile. We will follow with you. Bayron Rooney MD
[2018-08-17] MEDS ORDERED: Insulin Detemir 100 units/ml Vial (Levemir) SC SCH (22:00)
--- NOTE | 2018-08-18 01:16 | PN ---
DATE: 08/17/2018 This is [facility]'s [facility] visit on the medical floor. For Dr. Adames. SUBJECTIVE: The patient is 68-year-old female, seen sitting up in the chair. The patient has known presumptive stage III non-small CA of the lung which steroids now cut back. Her pedal edema is significantly improved. Her blood sugars also now being addressed by Dr. Mcgregor with significant improvement in that respect. There is also significant improvement of her pedal edema with her Lasix continuing as per Dr. Fong with radiation to continue for her cancer. The patient is in no acute distress this visit with her breathing little bit better, she reports. OBJECTIVE: VITAL SIGNS: Temperature 97.6, pulse 52, respirations 21, blood pressure 115/72, pulse ox 93%. PHYSICAL EXAMINATION: HEENT: Unremarkable. NECK: Supple. HEART: Regular rate. LUNGS: Scattered rhonchi. ABDOMEN: Obese, soft, and nontender. EXTREMITIES: Faint +1 edema in the feet bilaterally, significantly improved. NEUROLOGIC: Awake and alert. SKIN: Warm and dry with her excoriations/dog scratches improving on her wrists and her legs. LABORATORY DATA: The patient's labs were done including a sodium of 130, chloride of 89, BUN of 29 with a creatinine of 0.8 with a nonfasting glucose of 341 with a repeat of 283, hemoglobin A1c of 7.7. TSH of 0.02. Her CBC will be repeated in the morning. ASSESSMENT: Exacerbation of chronic obstructive pulmonary disease, stage III non-small cell cancer of the lung, history of cancer of the colon, hypothyroidism, bronchitis/early pneumonia, gastroesophageal reflux disease, obesity, degenerative joint disease, mild dementia, excoriations of the skin, anemia of chronic disease, hyperglycemia secondary to steroids, sleep apnea, history of paroxysmal atrial fibrillation. PLAN: Continue present medical regimen with radiation to continue with chemical engineering technician's recommendations to continue for her sugars with further recommendations as indicated. This is a complex patient with a comprehensive medically necessary and appropriate visit carried out in excess of 20 minutes with the patient's and family questions answered to their satisfaction. Gerard Gibson MD
[2018-08-18 06:29] LABS: HEMOGLOBIN 10.7 g/dL (12.0-16.0); MEAN CELL VOLUME 72.7 fl (80.0-105.0); MEAN CORPUSCULAR HEMOGLOBIN 22.1 pg (25.0-35.0); MEAN CORPUSCULAR HGB CONC 30.4 g/dl (31.0-37.0); MEAN PLATELET VOLUME 9.3 fl (7.0-11.0); RBC 4.84 10^6/uL (3.5-6.1); RED CELL DISTRIBUTION WIDTH 23.7 % (11.5-14.5)
[2018-08-18 06:44] LABS: ALB/GLOB RATIO 0.8 (1.1-1.8); ALBUMIN 2.8 g/dL (3.0-4.8); ALT/SGPT 56 U/L (7-56); AST/SGOT 24 U/L (14-36); BLOOD UREA NITROGEN 27 mg/dL (7-21); CALCIUM 8.7 mg/dL (8.4-10.5); GFR NON-AFRICAN AMERICAN > 60
[2018-08-18 08:26] VITALS: BP 138/90; PULSE 63; RESP 18; TEMP 97.5; O2SAT 98
[2018-08-18] MEDS: XALKORI 250 MG PO SCH (09:25)
[2018-08-18] MEDS: Bacitracin Ointment 30 GM TUBE TOP SCH (09:25)
[2018-08-18] MEDS: Insulin Lispro 1 UNITS/0.01 ML SC SCH ×2 (09:25→12:08)
[2018-08-18] MEDS: Insulin Lispro (humaLOG) LOW Coverage SC SCH ×2 (09:26→12:09)
[2018-08-18] MEDS: Pantoprazole 40 mg EC Tab PO SCH (09:27)
[2018-08-18] MEDS: Potassium Chloride 20 mEq/15 ml LIQ UD PO SCH ×2 (09:27→14:32)
[2018-08-18] MEDS: Arformoterol 15 mcg/2 ml Inh Sol IH SCH (09:48)
[2018-08-18] MEDS: Acetylcysteine 20% Inhal Soln (4ml) IH SCH (09:48)
[2018-08-18] MEDS: Budesonide 0.5 mg/2 ml Inhal Susp UD IH SCH (09:49)
[2018-08-18] MEDS ORDERED: MethylPREDNISolone 40 mg Vial IVP SCH (10:00)
--- NOTE | 2018-08-18 11:29 | PN ---
DATE: 08/18/2018 PULMONARY PROGRESS NOTE REFERRING PHYSICIAN: Gerard Gibson MD. SUBJECTIVE: The patient is seen in room, sitting in chair. No acute distress. Reports feeling well today. Reports improvement in cough, shortness of breath. No headache, rhinitis, chest pain, abdominal pain, nausea, vomiting, diarrhea, or leg pain reported. The patient reports some decrease in leg swelling. OBJECTIVE: GENERAL: No acute distress. VITAL SIGNS: Blood pressure 138/90, pulse 63, temperature 97.5, and oxygen saturation 98%. HEENT: Moist mucous membranes. Crowded airway. RESPIRATORY: Few scattered rhonchi bilaterally. CARDIOVASCULAR: S1 and S2, audible. ABDOMEN: Soft and nontender. No distention. No organomegaly. EXTREMITIES: Bilateral lower extremity edema. NEUROLOGICAL: Awake, alert and verbal. Follows commands. MEDICATIONS: Reviewed. Tylenol 650 every 4 hours p.r.n. fever greater than 100.4, Mucomyst 4 mL inhalation twice a day, DuoNeb 3 mL inhalation three times a day p.r.n., Brovana 15 mcg every 12 hours, aspirin 81 mg daily, Lipitor 40 mg in the evening, bacitracin topically twice a day to affected area, Pulmicort 0.5 mg every 12 hours, ergocalciferol 50,000 units every 7 days, Lasix 40 mg twice a day, heparin 5000 units subcutaneous every 8 hours, Levemir 34 units subcutaneous at bedtime, Humalog sliding scale a.c. at bedtime, Humalog 14 units subcutaneous a.c, Synthroid 100 mcg a.c., Solu-Medrol 20 mg IV push daily, Lopressor 25 mg p.o. daily, Protonix 40 mg p.o. daily, potassium chloride 20 mEq three times a day. LABORATORY DATA: Reviewed. WBC 12, RBC 4.84, hemoglobin 10.7, hematocrit 35.2, and platelets 537. Sodium 132, potassium 4.3, chloride 92, carbon dioxide 36, anion gap 9, BUN 27, creatinine 0.8, GFR greater than 60, POC glucose 199, random glucose 219, calcium 8.7, total bilirubin 0.5, AST 24, ALT 56, alkaline phosphatase 119, total protein 6.2, albumin 2.8, globulin 3.4, albumin globulin ratio 0.8. IMPRESSION AND PLAN: Unresectable lung cancer, narrowing of right mainstem bronchus, bilateral pleural effusion, sleep apnea syndrome, morbid obesity, hypothyroidism. Pulmonary point of view, continue steroids, continue gastric prophylaxis, deep venous thrombosis prophylaxis, continue compression stockings bilateral lower extremities for edema, continue continuous positive airway pressure use at bedtime, sleep apnea precaution, head of bed elevated at 45 degrees, continue diuretics. Monitor labs. The patient will need close followup for right lung tumor, she is currently undergoing radiation therapy. We will need to monitor for airway edema may benefit from TRCU care. This patient was seen and examined with Dr. Feliz. Discussed assessment and plan as described above. Thank you for this consult and we will follow with you. Juan Richardson APN Hussein Feliz MD DAVID
[2018-08-18] MEDS ORDERED: Pneumococcal 23-Valent Vaccine IM ONE (12:57)
[2018-08-18] MEDS ORDERED: Aluminum Hydroxide/Magnesium 30 ML, DiphenhydrAMINE 75 MG, Lidocaine 2% Viscous 30 ML PO PRN (12:57)
--- NOTE | 2018-08-18 13:22 | CP.PCM.PN ---
Subjective - Date & Time of Evaluation Date of Evaluation: 08/18/18 Time of Evaluation: 10:40 - Subjective Subjective: No fevers, not in distress, no SOB at rest. Objective - Vital Signs/Intake and Output Vital Signs (last 24 hours): Temp Pulse Resp BP Pulse Ox 97.5 F L 63 18 138/90 98 08/18/18 08:25 08/18/18 09:27 08/18/18 08:25 08/18/18 09:27 08/18/18 08:25 Intake and Output: 08/18/18 08/18/18 06:59 18:59 Intake Total 1620 Balance 1620 - Medications Medications: Current Medications Acetaminophen (Tylenol 325mg Tab) 650 mg PO Q4 PRN PRN Reason: Fever >100.4 F Acetylcysteine (Acetylcysteine 20%) 4 ml IH BIDRESP [facility] Last Admin: 08/18/18 09:48 Dose: 4 ml Albuterol/Ipratropium (Duoneb 3 Mg/0.5 Mg (3 Ml) Ud) 3 ml IH 0330,1130,1930 PRN PRN Reason: Shortness of Breath Last Admin: 08/15/18 13:04 Dose: 3 ml Arformoterol Tartrate (Brovana) 15 mcg IH [id number] [facility] Last Admin: 08/18/18 09:48 Dose: 15 mcg Aspirin (Ecotrin) 81 mg PO DAILY [facility] Last Admin: 08/18/18 09:25 Dose: 81 mg Atorvastatin Calcium (Lipitor) 40 mg PO QPM [facility] Last Admin: 08/17/18 17:49 Dose: 40 mg Bacitracin (Bacitracin) 0 gm TOP BID [facility] Last Admin: 08/18/18 09:25 Dose: 1 appful Budesonide (Pulmicort Respules) 0.5 mg IH [id number] [facility] Last Admin: 08/18/18 09:49 Dose: 0.5 mg Al Hydrox/Mg Hydrox/Simethicone 30 ml/Diphenhydramine HCl 75 mg/Lidocaine 30 ml 0 ml PO Q2H PRN PRN Reason: Mouth/Throat Pain Ergocalciferol (Drisdol 50,000 Intl Units Cap) 1 cap PO Q7D [facility] Last Admin: 08/11/18 20:53 Dose: 1 cap Furosemide (Lasix) 40 mg PO BID [facility] Heparin Sodium (Porcine) (Heparin) 5,000 units SC Q8 [facility]; Protocol Last Admin: 08/18/18 05:52 Dose: 5,000 units Home Med (Home Med) 0 unit PO BID [facility] Last Admin: 08/18/18 09:25 Dose: 1 unit Insulin Detemir (Levemir) 34 unit SC HS [facility] Last Admin: 08/17/18 22:03 Dose: 34 units Insulin Human Lispro (Humalog Low) 0 units SC ACHS [facility]; Protocol Last Admin: 08/18/18 12:09 Dose: Not Given Insulin Human Lispro (Humalog) 14 units SC AC [facility] Last Admin: 08/18/18 12:08 Dose: 14 units Levothyroxine Sodium (Synthroid) 100 mcg PO ACB [facility] Methylprednisolone (Solu-Medrol) 20 mg IVP DAILY [facility] Stop: 08/22/18 10:01 Last Admin: 08/18/18 09:28 Dose: 20 mg Metoprolol Tartrate (Lopressor) 25 mg PO DAILY [facility] Last Admin: 08/18/18 09:27 Dose: 25 mg Pantoprazole Sodium (Protonix Ec Tab) 40 mg PO DAILY [facility] Last Admin: 08/18/18 09:27 Dose: 40 mg Potassium Chloride (Potassium Chloride Oral Soln) 20 meq PO TID [facility] Last Admin: 08/18/18 09:27 Dose: 20 meq - Labs Labs: 08/18/18 05:44 08/18/18 05:44 PT 13.6 SECONDS (9.4-12.5) H 08/11/18 15:18 INR 1.19 08/11/18 15:18 APTT 24.4 Seconds (25.1-36.5) L 08/11/18 15:18 - Constitutional Appears: Chronically Ill - Head Exam Head Exam: NORMAL INSPECTION - Respiratory Exam Respiratory Exam: Decreased Breath Sounds - Cardiovascular Exam Cardiovascular Exam: +S1, +S2 - GI/Abdominal Exam GI & Abdominal Exam: Soft. absent: Tenderness Assessment and Plan - Assessment and Plan (Free Text) Plan: Assessment S/P probable right sided HCAP associated with lung mass lung cancer, non-small cell, stage 4 morbid obesity with BMI 40 dyslipidemia colon cancer Plan continue to monitor off antibiotics since she is at risk for nosocomial infections Overall prognosis is poor
--- NOTE | 2018-08-18 16:00 | PN ---
DATE: 08/18/2018 ENDO FOLLOWUP NOTE LOCATION: Room 366. SUBJECTIVE: This is a 68-year-old female with recent uncontrolled type 2 insulin-requiring diabetes with intercurrent IV steroid therapy, presenting here with acute exacerbation of COPD with underlying lung carcinoma and is now being followed closely for metabolic management. Her glucose values are fluctuating and ranging from 199-380 mg/dL. Her bedtime glucose was 435 mg/dL as noted last night. Her chemistries today showed a BUN of 27, sodium 132, potassium 4.3, chloride 92, CO2 of 36, glucose 219 and creatinine 0.8. So at this time, we will continue the modified basal and bolus insulin regimen given as Levemir at 34 units subcu at bedtime daily as given. We will continue the Humalog given as 14 units t.i.d. before meals as ordered. We will obtain serial chemistries and supplement accordingly as needed. We will also continue the lower dose of the levothyroxine given as 100 mcg daily to start tomorrow morning as ordered. Her TSH initially was less than 0.02 as noted. So at this time, we will continue the serial chemistries and supplement accordingly as needed. We will also obtain serial thyroid studies and titrate her dose regimen accordingly. Crystal Mcgregor MD
--- NOTE | 2018-08-19 00:31 | DS ---
This is La White's discharge summary from the medical floor. She is to go to transitional care. For Dr. Adames. SUBJECTIVE: The patient is 68-year-old female sitting up in a chair with stage III [id number] carcinoma of the lung with severe pedal edema, now improved with COPD symptoms also slightly improved. She is now deconditioned with recommendations for transfer to TCU for reconditioning. She was also to have radiation treatments to continue Tuesday through Tuesday. She is in no acute distress. PHYSICAL EXAMINATION: VITAL SIGNS: Temperature 97.5, pulse 63, respirations 18, blood pressure 138/90, pulse ox 98%. HEENT: Unremarkable. NECK: Supple. HEART: Regular rate. LUNGS: Occasional rhonchi. ABDOMEN: Obese, soft, and nontender. EXTREMITIES: Faint +1 edema of the feet bilaterally. NEUROLOGIC: Awake and alert. SKIN: Warm and dry. LABORATORY DATA: The patient's labs were done. White blood cell count of 12.0, hemoglobin of 10.7, hematocrit of 35.2, and platelet count of 537,000 with a metabolic panel showing a BUN of 27, normal creatinine 0.8 with a nonfasting glucose of 228 down from 435 earlier. ASSESSMENT: The assessment for this patient is that of exacerbation of chronic obstructive pulmonary disease, stage III [id number] carcinoma of the lung, history of cancer of colon, hypothyroidism, early pneumonia, gastroesophageal reflux disease, obesity, degenerative joint disease, mild dementia, excoriation of skin, anemia of chronic disease, hyperglycemia secondary to steroids, sleep apnea, history of paroxysmal atrial fibrillation. PLAN: For this patient after conversation with Dr. Adames is to transfer her to TCU for reconditioning with continuation of her present medical regimen. Prognosis for this patient is guarded. This is a complex patient with a comprehensive medically necessary and appropriate visit carried out in excess of 35 minutes with the patient's questions answered to her satisfaction. Gerard Gibson MD
[2018-08-19] MEDS ORDERED: Levothyroxine 100 MCG TAB PO SCH (07:30)
== END 2018-08-18 14:46 | DRG 190 ==
LOC: ED 14:06 → ERH 18:57 → 3RNO 21:36
PROVIDERS: ADMIT Family Medicine; ATTEND Family Medicine
PROC: 30233N1 Transfusion of Nonautologous Red Blood Cells into Peripheral Vein, Percutaneous Approach (ICD-10-PCS; 2018-08-11)
PROC: 5A09357 Assistance with Respiratory Ventilation, Less than 24 Consecutive Hours, Continuous Positive Airway Pressure (ICD-10-PCS; principal; 2018-08-12)
PROC: 3E0234Z Introduction of Serum, Toxoid and Vaccine into Muscle, Percutaneous Approach (ICD-10-PCS; 2018-08-18)
DX: J44.1 Chronic obstructive pulmonary disease with (acute) exacerbation (principal); J18.9 Pneumonia, unspecified organism; C34.01 Malignant neoplasm of right main bronchus; J90 Pleural effusion, not elsewhere classified; Z68.41 Body mass index [BMI] 40.0-44.9, adult; J44.0 Chronic obstructive pulmonary disease with (acute) lower respiratory infection; E11.65 Type 2 diabetes mellitus with hyperglycemia; T38.0X5A Adverse effect of glucocorticoids and synthetic analogues, initial encounter; D50.9 Iron deficiency anemia, unspecified; D63.8 Anemia in other chronic diseases classified elsewhere; E03.9 Hypothyroidism, unspecified; I11.0 Hypertensive heart disease with heart failure; I50.9 Heart failure, unspecified; I48.0 Paroxysmal atrial fibrillation; H40.9 Unspecified glaucoma; E78.00 Pure hypercholesterolemia, unspecified; K21.9 Gastro-esophageal reflux disease without esophagitis; E78.5 Hyperlipidemia, unspecified; E66.01 Morbid (severe) obesity due to excess calories; G47.30 Sleep apnea, unspecified; F03.90 Unspecified dementia, unspecified severity, without behavioral disturbance, psychotic disturbance, mood disturbance, and anxiety; M19.90 Unspecified osteoarthritis, unspecified site; E55.9 Vitamin D deficiency, unspecified; Y95 Nosocomial condition; I25.2 Old myocardial infarction; Z87.891 Personal history of nicotine dependence; Z79.899 Other long term (current) drug therapy; Z85.038 Personal history of other malignant neoplasm of large intestine; Z79.4 Long term (current) use of insulin; Z23 Encounter for immunization

== ENCOUNTER 2018-08-18 14:52 | Inpatient (IN) | payer OTHER, MEDICARE ==
[2018-08-18] MEDS ORDERED: Aluminum Hydroxide/Magnesium 30 ML, DiphenhydrAMINE 75 MG, Lidocaine 2% Viscous 30 ML PO PRN ×3 (15:52→16:50)
[2018-08-18] MEDS: CRIZOTINIB 250 MG PO SCH (17:49)
[2018-08-18] MEDS: Insulin Lispro (humaLOG) LOW Coverage SC SCH ×2 (17:54→21:29)
[2018-08-18] MEDS: Insulin Lispro 1 UNITS/0.01 ML SC SCH (17:54)
[2018-08-18] MEDS: Potassium Chloride 20 mEq/15 ml LIQ UD PO SCH (17:58)
[2018-08-18] MEDS: Acetylcysteine 20% Inhal Soln (4ml) IH SCH (19:26)
[2018-08-18] MEDS: Arformoterol 15 mcg/2 ml Inh Sol IH SCH (19:26)
[2018-08-18] MEDS: Budesonide 0.5 mg/2 ml Inhal Susp UD IH SCH (19:27)
[2018-08-18] MEDS: Albuterol-Ipratrop 3 mg / 0.5 (3 ml) UD IH SCH (19:27)
[2018-08-18] MEDS ORDERED: Arformoterol 15 mcg/2 ml Inh Sol IH SCH (20:00)
[2018-08-18] MEDS ORDERED: Insulin Detemir 100 units/ml Vial (Levemir) SC SCH (22:00)
[2018-08-19] MEDS: Albuterol-Ipratrop 3 mg / 0.5 (3 ml) UD IH SCH ×4 (00:59→19:46)
[2018-08-19] MEDS: Pantoprazole 40 mg EC Tab PO SCH (05:51)
[2018-08-19] MEDS: MethylPREDNISolone 40 mg Vial IVP SCH (05:52)
[2018-08-19] MEDS: Levothyroxine 100 MCG TAB PO SCH (05:52)
[2018-08-19] MEDS ORDERED: Levothyroxine 125 MCG TAB PO SCH (06:30)
[2018-08-19] MEDS: Insulin Lispro 1 UNITS/0.01 ML SC SCH ×3 (07:03→17:25)
[2018-08-19] MEDS: Insulin Lispro (humaLOG) LOW Coverage SC SCH ×4 (07:04→21:50)
[2018-08-19 07:40] LABS: BASO # 0.02 K/mm3 (0.0-2.0); BASO % 0.2 % (0.0-3.0); EOS # 0.1 (0.0-0.7); EOS % 0.5 % (1.5-5.0); GRAN # 9.47 (1.4-6.5); GRAN % 86.7 % (50.0-68.0); HEMOGLOBIN 10.7 g/dL (12.0-16.0); LYMPH # 0.7 (1.2-3.4); LYMPH % 6.7 % (22.0-35.0); MEAN CELL VOLUME 73.7 fl (80.0-105.0); MEAN CORPUSCULAR HEMOGLOBIN 21.5 pg (25.0-35.0); MEAN CORPUSCULAR HGB CONC 29.2 g/dl (31.0-37.0); MEAN PLATELET VOLUME 9.7 fl (7.0-11.0); MONO # 0.6 (0.1-0.6); MONO % 5.9 % (1.0-6.0); RBC 4.98 10^6/uL (3.5-6.1); RED CELL DISTRIBUTION WIDTH 24.3 % (11.5-14.5); WHITE BLOOD COUNT 10.9 10^3/uL (4.5-11.0)
[2018-08-19] MEDS: Potassium Chloride 20 mEq/15 ml LIQ UD PO SCH ×3 (08:09→17:27)
[2018-08-19 08:13] LABS: ALB/GLOB RATIO 0.8 (1.1-1.8); ALBUMIN 2.8 g/dL (3.0-4.8); CALCIUM 8.1 mg/dL (8.4-10.5)
[2018-08-19] MEDS: Acetylcysteine 20% Inhal Soln (4ml) IH SCH ×2 (08:21→19:45)
[2018-08-19] MEDS: Arformoterol 15 mcg/2 ml Inh Sol IH SCH ×2 (08:21→19:46)
[2018-08-19] MEDS: Budesonide 0.5 mg/2 ml Inhal Susp UD IH SCH ×2 (08:22→19:46)
[2018-08-19] MEDS ORDERED: Pantoprazole 40 mg EC Tab PO SCH (10:00)
[2018-08-19] MEDS: CRIZOTINIB 250 MG PO SCH ×2 (10:10→17:27)
--- NOTE | 2018-08-19 11:20 | PN ---
DATE: 08/19/2018 ENDO FOLLOWUP NOTE LOCATION: Room 303, is transferred to TCU. SUBJECTIVE: This is a 68-year-old female with recent uncontrolled type 2 insulin-requiring diabetes, admitted with acute exacerbation of COPD and supervening marked hyperglycemic accelerations as expected transiently and is now being tapered down on the IV steroids to just once daily of the Solu-Medrol at 20 mg IV push IV piggyback as ordered. Her glycemic levels were extremely fluctuating but improved and the latest glucose levels overnight have ranged from 91-162 mg/dL. It was still 306 at bedtime last night. Her chemistry showed a BUN of 28, sodium 133, potassium 4.2, chloride 90, CO2 of 40, glucose 90 and creatinine 1.1. ASSESSMENT: This is a 68-year-old female with uncontrolled and decompensated type 2 insulin-requiring diabetes of transient phenomenon because of the intercurrent IV steroid therapy with supervening hyperglycemic accelerations as expected thereof. This should improve accordingly with the tapering down of the IV steroids as noted. She was not on any kind of diabetic medications at home as reviewed from the medication list. She also has underlying lung carcinoma with pleural effusion as noted. PLAN: Plan of management, will modify once again her basal and bolus insulin regimen to optimize metabolic control. We will lower her Humalog given as prandial insulin 6 units subcu 3 times daily before meals to start at lunchtime today as ordered. We will continue the modified low-dose correction scale using Humalog insulin as given. This is meant to obviate hypoglycemia as noted. We will also modify her basal insulin and lower the Levemir given at bedtime to 20 units subcu daily to start tonight. We will obtain serial chemistries and supplement accordingly needed. We will follow and advise accordingly. Crystal Mcgregor MD
--- NOTE | 2018-08-19 13:23 | CP.PCM.PN ---
Subjective - Date & Time of Evaluation Date of Evaluation: 08/19/18 Time of Evaluation: 01:00 - Subjective Subjective: Ms White is known to our department. She has been getting radiation therapy daily for her lung cancer. Her last treatment was on Tuesday. She will continue with treatment from the [facility] on Tuesday Objective - Vital Signs/Intake and Output Vital Signs (last 24 hours): Temp Pulse Resp BP Pulse Ox 98.5 F 76 20 109/69 95 08/19/18 10:00 08/19/18 10:00 08/19/18 10:00 08/19/18 10:00 08/19/18 10:00 - Medications Medications: Current Medications Acetaminophen (Tylenol 325mg Tab) 650 mg PO Q4H PRN; Protocol PRN Reason: Fever >100.4 F Acetylcysteine (Acetylcysteine 20%) 4 ml IH BIDRESP [facility]; Protocol Last Admin: 08/19/18 08:21 Dose: 4 ml Albuterol/Ipratropium (Duoneb 3 Mg/0.5 Mg (3 Ml) Ud) 3 ml IH [id number] [facility]; Protocol Last Admin: 08/19/18 08:22 Dose: 3 ml Arformoterol Tartrate (Brovana) 15 mcg IH [id number] [facility] Last Admin: 08/19/18 08:21 Dose: 15 mcg Aspirin (Aspirin Chewable) 81 mg PO 0800 [facility]; Protocol Last Admin: 08/19/18 08:10 Dose: 81 mg Atorvastatin Calcium (Lipitor) 40 mg PO 1800 [facility]; Protocol Last Admin: 08/18/18 17:57 Dose: 40 mg Budesonide (Pulmicort Respules) 0.5 mg IH [id number] [facility]; Protocol Last Admin: 08/19/18 08:22 Dose: 0.5 mg Al Hydrox/Mg Hydrox/Simethicone 30 ml/Diphenhydramine HCl 75 mg/Lidocaine 30 ml 0 ml PO Q2H PRN PRN Reason: Mouth/Throat Pain Last Admin: 08/19/18 08:16 Dose: 10 ronald Furosemide (Lasix) 40 mg PO 0600,1600 [facility]; Protocol Last Admin: 08/19/18 05:53 Dose: 40 mg Heparin Sodium (Porcine) (Heparin) 5,000 units SC Q8 [facility]; Protocol Last Admin: 08/19/18 05:50 Dose: 5,000 units Insulin Detemir (Levemir) 20 unit SC HS [facility]; Protocol Insulin Human Lispro (Humalog Low) 0 units SC ACHS [facility]; Protocol Last Admin: 08/19/18 11:18 Dose: 5 units Insulin Human Lispro (Humalog) 6 units SC AC [facility]; Protocol Last Admin: 08/19/18 11:18 Dose: 6 units Levothyroxine Sodium (Synthroid) 100 mcg PO 0600 [facility]; Protocol Last Admin: 08/19/18 05:52 Dose: 100 mcg Methylprednisolone (Solu-Medrol) 20 mg IVP 0600 [facility]; Protocol Last Admin: 08/19/18 05:52 Dose: 20 mg Metoprolol Tartrate (Lopressor) 25 mg PO 0730 [facility]; Protocol Last Admin: 08/19/18 08:08 Dose: 25 mg Crizotinib [Xalkori] (250 Mg (Home Med)) 250 mg PO BID [facility] Last Admin: 08/19/18 10:10 Dose: 250 mg Pantoprazole Sodium (Protonix Ec Tab) 40 mg PO 0600 [facility]; Protocol Last Admin: 08/19/18 05:51 Dose: 40 mg Potassium Chloride (Potassium Chloride Oral Soln) 20 meq PO 0730,1230,1800 [facility]; Protocol Last Admin: 08/19/18 11:38 Dose: 20 meq - Labs Labs: 08/19/18 07:00 08/19/18 07:00
--- NOTE | 2018-08-19 21:29 | CON ---
DATE OF CONSULTATION: 08/19/2018 REFERRING PHYSICIAN: Dr. Adames REASON FOR CONSULTATION: Metastatic lung cancer with chronic lung disease. HISTORY OF PRESENT ILLNESS: This is a 68-year-old female, known to me from [facility], has a known history of colon cancer requiring resection in the remote past, presently has unresectable lung cancer, been on chemotherapy, hypothyroidism, degenerative joint disease, anemia, known sleep apnea syndrome, who was admitted to [facility] with respiratory embarrassment with cough and shortness of breath, treated with steroids, antibiotics, bronchodilators. Radiation to right lung started. Presently admitted to [facility] for continued care. Feels better. Out of bed to chair. Decreased cough, decreased shortness of breath. No nausea, no vomiting, no diarrhea. Decreased leg swelling. PAST MEDICAL HISTORY: As per history of present illness. Also has a remote history of GI bleed, GERD, detached retina. FAMILY HISTORY: No significant cardiopulmonary disease reported. SOCIAL HISTORY: Nonsmoker, nondrinker. MEDICATIONS: She is on Mucomyst inhaled twice a day, aspirin 81 mg daily, Brovana inhaled twice a day, also on crizotinib 250 mg twice a day, DuoNeb every 6 hours, heparin 5000 units subcu every 8 hours, insulin coverage, Lasix 40 mg twice a day, Levemir 20 units subcu h.s., metoprolol tartrate 25 mg, potassium supplement, Protonix 40 mg daily, budesonide inhaled twice a day, Solu-Medrol 20 mg daily, Synthroid 100 mcg daily, Tylenol p.r.n. basis. ALLERGIES: NONE KNOWN. REVIEW OF SYSTEMS: No headache, no rhinitis. Cough and shortness of breath are better. No chest pain, no nausea, no vomiting, no diarrhea, no dysuria. Does have leg swelling, but improved. PHYSICAL EXAMINATION: GENERAL: No acute distress. VITAL SIGNS: Temp is 98, heart rate 65, respiratory rate is 20, blood pressure 119/74, pulse ox 96% on nasal cannula. HEENT: Moist mucous membranes. Crowded airway. Mallampati score is 4. NECK: Supple. No JVD. LUNGS: Have a fair airflow with few rhonchi and wheezing heard. HEART: S1 and S2. ABDOMEN: Soft, nontender, no organomegaly. EXTREMITIES: Does have some edema. NEUROLOGICAL: Awake, alert, follows simple commands. LABORATORY DATA: Hemoglobin 10.7, hematocrit 36.7, WBC 10.9, and platelet count is 497,000. Sodium 133, potassium 4.2, chloride 90, bicarbonate is 40, BUN 28, creatinine 1.1, glucose 346, calcium is 8.1. AST 30, ALT 65, alk phos is 119. Albumin is 2.8. Microbiology: Blood culture has been negative. IMPRESSION AND PLAN: Unresectable lung cancer with narrowing of the right mainstem bronchus, bilateral pleural effusions, sleep apnea syndrome, morbid obesity, hypothyroidism, normal ejection fraction, heart failure. Pulmonary point view, doing better. Will continue CPAP while sleeping. Keep head elevated at 45 degrees. IV and inhaled bronchodilator. Gastric prophylaxis. Continue diuretics. Continue radiation. We will follow closely. Thank you and we will follow with you. Hussein Feliz MD
[2018-08-19] MEDS ORDERED: Insulin Detemir 100 units/ml Vial (Levemir) SC SCH (22:00)
[2018-08-20] MEDS: Albuterol-Ipratrop 3 mg / 0.5 (3 ml) UD IH SCH ×4 (01:30→20:44)
[2018-08-20] MEDS: Insulin Lispro (humaLOG) LOW Coverage SC SCH ×5 (01:39→22:26)
--- NOTE | 2018-08-20 03:06 | HP ---
DATE OF EXAM: 08/19/2018 LOCATION: The patient is in [address] [place] [address], bed 1. The patient has been transferred to the TCU for deconditioning, continuation of her IV steroids and continuation of radiation, gait strengthening for proximal muscle weakness related to the steroid therapy, and monitoring of the electrolytes while on Lasix as well. HISTORY OF PRESENT ILLNESS: This is a 68-year-old female who is admitted to the acute side of the hospital for progressive shortness of breath, wheezing along with progressive leg edema, the question that the patient had demand ischemia on top of issues with the lung related to obstruction from the tumor in the right hilar area causing pressure on the right mainstem bronchus making her feel worse with increasing venous congestion in the pulmonary arteries was unclear. The patient was admitted and then treated aggressively with IV steroids, given IV Lasix and gradually, the patient's condition started improving. The patient is also on medications prescribed by Dr. Delarosa and Dr. Fong, who are following her for the cardiac issue as well. The patient is on crizotinib where she has lost one positive lung tumor, which is an adenocarcinoma, and she is on that medication twice a day along with radiation to the right hilar area, which is being continued now for the last 3 months. The patient has history of hypothyroidism, degenerative joint disease, anemia, sleep apnea syndrome as well. The patient has been treated with antibiotics as well along with bronchodilators, which seems to have also helped her. The patient is now in the TCU for deconditioning. The patient denies any history of nausea or vomiting. She definitely is able to ambulate better with using less oxygen. Pulse ox initially prior to admission was in the low 70s and now, she is in the 90s. With very minimal assistance, the patient is able to get around, and she is able to be off the oxygen for longer periods of time. The patient also noticed decreased swelling of the legs as well. 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 SOCIAL HISTORY: The patient is a nonsmoker and nondrinker. FAMILY HISTORY: There is no significant cardiac or pulmonary history in the family. MEDICATIONS: The patient's medications are reviewed, although from the acute side, which are carried onto the TR, she is on Mucomyst inhaled twice a day, aspirin 81 mg daily, Brovana inhaled twice a day, crizotinib 250 b.i.d., DuoNeb every 6 hours, heparin 5000 units subcutaneously every 8 hours, insulin coverage, Lasix 40 mg b.i.d, Levemir 20 units subcutaneously at bedtime, metoprolol tartrate 25 mg daily, potassium supplement, Protonix 40 mg daily, budesonide inhaled twice daily, Solu-Medrol 20 mg IV daily, Synthroid 100 mcg daily, Tylenol p.r.n. REVIEW OF SYSTEMS: Twelve-system review was done, except for cough and shortness of breath, both of which are better. Rest of the review of systems is negative except what is mentioned in the HPI. PHYSICAL EXAMINATION: GENERAL: The patient is in no acute distress. VITAL SIGNS: Stable, T-max is 98.4, heart rate is 65, respirations 20, blood pressure is 119/74, O2 sat is 96% on nasal cannula. HEENT: Head is normocephalic, atraumatic. Conjunctivae pale. Sclerae are anicteric. Pupils are equally reactive to light and accommodation. Examination of the oropharynx reveals no oropharyngeal lesions. NECK: Supple. There is no adenopathy. LUNGS: Have fair airflow with few rhonchi and wheezes that are heard. HEART: Reveals S1 and S2 to be normal. No gallop or murmur is heard. ABDOMEN: Protuberant, nontender. Liver and spleen are not palpable. EXTREMITIES: Reveal no cyanosis, clubbing, or edema. NEUROLOGIC: Reveals higher functions to be normal. No focal deficits are noted. LABORATORY DATA: Reveals hemoglobin of 10, hematocrit 36.7, white count is 10.9, platelet count of 497,000. Sodium is 133, K is 4.2, chloride 90, bicarbonate is 40, BUN is 28, creatinine 1.1, glucose 346, calcium 8.1. AST 30, ALT 65, alkaline phosphatase 119, albumin 2.8. Blood cultures have been negative. ASSESSMENT, NOTES, AND PLAN: Unresectable stage IIIB non-small cell carcinoma of the lung, currently on radiation to the right hilum to open up the passage of the right mainstem, bilateral pleural effusions, sleep apnea syndrome, morbid obesity, hypothyroidism, normal ejection fraction, right-sided heart failure. The patient is doing well from the Pulmonary point of view. The patient is using the continuous positive airway pressure while sleeping, takes the oxygen at nighttime, keeping the head of the bed elevated to 45 degrees, on IV and/or any other steroids. The patient is also on gastric prophylaxis. Plan is to continue the IV diuretics, continue the IV Solu-Medrol and p.o. diuretics. Continue radiation and monitor the patient very closely. The patient is going to be on active physical therapy at least twice a day, so that she can feel stronger, become more reliant in the activities of daily living. At this point in time, we do not plan to alter our treatment, still waiting for the results of the Guardant blood testing for next generation sequencing that was done by Dr. Hobbs at [facility]. Gabby Adames MD
[2018-08-20] MEDS: Levothyroxine 100 MCG TAB PO SCH (05:44)
[2018-08-20] MEDS: Pantoprazole 40 mg EC Tab PO SCH (05:44)
[2018-08-20] MEDS: MethylPREDNISolone 40 mg Vial IVP SCH (05:44)
[2018-08-20] MEDS: Insulin Lispro 1 UNITS/0.01 ML SC SCH ×3 (07:01→17:30)
[2018-08-20] MEDS: Acetylcysteine 20% Inhal Soln (4ml) IH SCH ×2 (07:06→20:43)
[2018-08-20] MEDS: Arformoterol 15 mcg/2 ml Inh Sol IH SCH ×2 (07:06→20:43)
[2018-08-20] MEDS: Budesonide 0.5 mg/2 ml Inhal Susp UD IH SCH ×2 (07:06→20:44)
[2018-08-20] MEDS: Potassium Chloride 20 mEq/15 ml LIQ UD PO SCH ×3 (08:13→18:04)
[2018-08-20] MEDS: CRIZOTINIB 250 MG PO SCH ×2 (09:42→17:58)
--- NOTE | 2018-08-20 19:16 | PN ---
DATE: 08/20/2018 ENDOCRINOLOGY FOLLOWUP NOTE LOCATION: Room 303. SUBJECTIVE: This is a 68-year-old female with recent uncontrolled type 2 insulin-requiring diabetes related to the intercurrent IV steroid therapy given for management of acute exacerbation of COPD and is now being followed closely for metabolic management. Her glycemic levels are still fluctuating and markedly elevated overnight with glucose levels ranging from 278-378 and 429 mg/dL. So at this time, we will modify once again her basal and bolus insulin regimen and increase the Humalog to 20 units subcu t.i.d. before meals to start at dinnertime today as ordered. We will continue the low-dose correction scale using Humalog insulin as given. We will also modify her basal insulin given overnight with Levemir to be given as 40 units subcu at bedtime daily to start tonight. We will obtain serial chemistries and supplement accordingly as needed. We will follow. Crystal Mcgregor MD
--- NOTE | 2018-08-20 20:27 | PN ---
DATE: 08/20/2018 PULMONARY PROGRESS NOTE REFERRING PHYSICIAN: Dr. Adames. SUBJECTIVE: Participating in therapy. Night was unremarkable. No headache, no rhinitis. Cough and shortness of breath improving. No nausea, no vomiting, no diarrhea. Decreased leg swelling. OBJECTIVE GENERAL: In no acute distress. VITAL SIGNS: Temperature is 98, heart rate is 58, respiratory rate is 20, blood pressure 123/73, pulse ox of 95% on 4 liters nasal cannula. HEENT: Moist mucous membranes. Crowded airway. Mallampati score is 4. NECK: Supple. No JVD. LUNGS: Have fair airflow with a few rhonchi, prolonged expiratory phase. HEART: S1 and S2. ABDOMEN: Soft, nontender. No organomegaly. EXTREMITIES: Trace edema. NEUROLOGIC: Awake, alert, follows simple commands. MEDICATIONS: She is on Mucomyst inhaled twice a day, Antivert 12.5 mg three times a day, aspirin 81 mg daily, Brovana inhaled twice a day, crizotinib 250 mg twice a day, DuoNeb every 6 hours, metformin 500 mg twice a day, heparin 5000 units subcutaneously every 8 hours, insulin coverage, Lasix 40 mg twice a day, Levemir is 40 mg subcutaneously at bedtime, Lipitor 40 mg daily, metoprolol tartrate 25 mg daily, potassium supplement, Protonix 40 mg daily, Pulmicort inhaled twice a day, Solu-Medrol 20 mg daily, Synthroid 100 mcg daily, Tylenol on as-needed basis. LABORATORY DATA: Reviewed. Blood sugar this morning is 294. IMPRESSION AND PLAN: Unresectable lung cancer with narrowing of the right mainstem bronchus, presented with wheezing and rhonchi, bilateral pleural effusion, sleep apnea syndrome, morbid obesity, hypothyroidism, normal left ventricular ejection fraction, heart failure. Case discussed with Dr. Adames. Continue IV and inhaled bronchodilator. Encouraged continuous positive airway pressure use. Gastric prophylaxis, deep venous thrombosis prophylaxis. Radiation therapy. Continue to watch closely for worsening of bronchial obstruction, especially in the acute phase of radiation therapy. Thank you and we will follow with you. Hussein Feliz MD
[2018-08-20] MEDS ORDERED: Insulin Detemir 100 units/ml Vial (Levemir) SC SCH ×2 (22:00)
--- NOTE | 2018-08-21 02:29 | PN ---
DATE: 08/20/2018 ONCOLOGY PROGRESS NOTE LOCATION: The patient is in TCU 303, bed 1. SUBJECTIVE: The patient is participating therapy, she is doing well. No headaches, no rhinitis. The patient still feels a little bit of dizziness when she moves suddenly. Cough and shortness of breath is improving. Leg edema is improving. Nausea, vomiting and diarrhea. Patient is overall functioning better. Steroids are being gradually tapered. PHYSICAL EXAMINATION: GENERAL: The patient is in no acute distress. VITAL SIGNS: Stable. T-max is 98.4, heart rate is 58, respirations on 4 L of nasal cannula. HEENT: Reveals conjunctivae to be pale. Sclerae is anicteric. Pupils are equally reactive to light and accommodation. Examination of the oropharynx reveals no oropharyngeal lesions. NECK: Supple. There is no adenopathy. LUNGS: Reveals fair airflow with few rhonchi, prolonged respiratory phase. HEART: Reveals S1 and S2 to be normal. No gallop or murmur is heard. ABDOMEN: Soft, nontender. No rebound, rigidity or guarding is noted. EXTREMITIES: Reveal trace edema, but it is not significantly improved. NEUROLOGIC: Reveals higher functions to be normal. No focal deficits are noted. GENITOURINARY/RECTAL: Deferred. MEDICATIONS: Patient's medications were reviewed. She is on Mucomyst inhaled twice a day, Antivert 12.5 mg three times a day, aspirin 81 mg daily, Brovana inhaled twice a day, crizotinib 250 mg twice a day, DuoNeb every 6 hours, metformin 500 mg twice a day, heparin 5000 units subcutaneously every 8 hours, insulin coverage, Lasix 40 mg twice a day, Levemir is 40 mg subcutaneously at bedtime, Lipitor 40 mg daily, metoprolol tartrate 25 mg daily, potassium supplement, Protonix 40 mg daily, Pulmicort inhaled twice a day, Solu-Medrol 20 mg daily, Synthroid 100 mcg daily, Tylenol on as-needed. LABORATORY DATA: Reviewed. Blood sugar is 294, metformin was started today, hopefully the sugar levels will go down. 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 Cardiac functions have improved on the current regimen that she is on and we will plan to continue and finish the radiation while maintaining on the crizotinib. We are still awaiting the reports on her medications as far as switching her from crizotinib to another drug depending on the Guardant assay that was done for her by Dr. Hobbs at [facility]. Meantime, we will continue the current regimen and make appropriate recommendations. Plan is to continue to radiation while the patient is TCU. Continue physical therapy twice a day and the patient has been encouraged to participate in exercises to increase the proximal muscle strength. Routine post exam instructions have been given to the patient. Gabby Adames MD
[2018-08-21] MEDS: Albuterol-Ipratrop 3 mg / 0.5 (3 ml) UD IH SCH ×4 (02:57→20:18)
[2018-08-21] MEDS: MethylPREDNISolone 40 mg Vial IVP SCH (05:53)
[2018-08-21] MEDS: Levothyroxine 100 MCG TAB PO SCH (05:54)
[2018-08-21] MEDS: Pantoprazole 40 mg EC Tab PO SCH (06:55)
[2018-08-21] MEDS: Insulin Lispro (humaLOG) LOW Coverage SC SCH ×4 (06:56→22:07)
[2018-08-21] MEDS: Insulin Lispro 1 UNITS/0.01 ML SC SCH ×3 (06:57→17:12)
[2018-08-21] MEDS: Arformoterol 15 mcg/2 ml Inh Sol IH SCH ×2 (07:02→20:18)
[2018-08-21] MEDS: Acetylcysteine 20% Inhal Soln (4ml) IH SCH ×2 (07:02→20:18)
[2018-08-21] MEDS: Budesonide 0.5 mg/2 ml Inhal Susp UD IH SCH ×2 (07:03→20:18)
[2018-08-21] MEDS: Potassium Chloride 20 mEq/15 ml LIQ UD PO SCH ×3 (07:51→17:15)
[2018-08-21] MEDS: CRIZOTINIB 250 MG PO SCH ×2 (11:07→17:14)
--- NOTE | 2018-08-21 14:09 | PN ---
DATE: 08/21/2018 LOCATION: Room 303. SUBJECTIVE: This is a 68-year-old female with recent uncontrolled type 2 insulin-requiring diabetes, now being followed closely for metabolic management. She still has ongoing IV steroid therapy as being tapered down as noted. Her latest glucose levels are fluctuating, but improved overnight and have ranged from 146 to 172 and 218 mg/dL. So, at this time, we will continue the same basal and bolus insulin regimen as given with Humalog given as 20 units t.i.d. before meals as ordered. We will continue the Levemir given as 40 units subcu at bedtime daily as given. We will titrate incrementally as indicated to optimize metabolic control. We will obtain serial chemistries and supplement accordingly as needed. We will follow. Crystal Mcgregor MD
--- NOTE | 2018-08-21 15:09 | PN ---
DATE: 08/21/2018 PULMONARY PROGRESS NOTE REFERRING PHYSICIAN: Dr. Gibson. SUBJECTIVE: The patient is lying in bed asleep, but easily arousable. No headache, rhinitis, chest pain, abdominal pain, nausea, vomiting, diarrhea, or leg pain reported. The patient reports improvement in cough and shortness of breath. Also, reports leg swelling has decreased. OBJECTIVE: GENERAL: No acute distress. VITAL SIGNS: Blood pressure 105/67, pulse , temperature 98, and oxygen saturation 95. HEENT: Moist mucous membranes. Mallampati score is 4. Crowded airway. NECK: Supple. No JVD. LUNGS: Few rhonchi bilaterally. CARDIOVASCULAR: S1 and S2, audible. ABDOMEN: Soft and nontender. No distension. No organomegaly. EXTREMITIES: Trace bilateral lower extremity edema. NEUROLOGIC: Awake, alert, and verbal. Follows commands. MEDICATIONS: Reviewed. Tylenol 650 every 4 hours p.r.n. fever greater than 100.4, Mucomyst 4 mL inhalation twice a day, DuoNeb 3 mL inhalation every six hours, Brovana 15 mcg every 12 hours, aspirin 81 mg daily, Lipitor 40 mg daily, Pulmicort 0.5 mg every 12 hours, Lasix 40 mg twice a day, heparin 5000 units subcu every 8 hours, Levemir 40 units subcu at bedtime, Humalog sliding scale subcu a.c. at bedtime, Humalog 20 units in the morning, Synthroid 100 mcg daily, meclizine 12.5 mg three times a day, Glucophage 500 mg twice a day, Solu-Medrol 20 mg daily, metoprolol tartrate 25 mg daily, Xalkori 250 mg twice a day, pantoprazole 40 mg daily, potassium chloride 20 mEq three times a day. LABORATORY DATA: Reviewed. POC glucose 218. IMPRESSION AND PLAN: Unresectable lung cancer with narrowing of the right mainstem bronchus. Currently, undergoing radiation therapy. Bilateral pleural effusion, sleep apnea syndrome, morbid obesity, hypothyroidism, normal left ventricular ejection fraction, heart failure. Continue bronchodilators. Continue CPAP use at bedtime. The head of the bed elevated to 45 degrees, sleep apnea precaution. Gastric prophylaxis, deep venous thrombosis prophylaxis. Continue to watch closely for worsening of bronchial obstruction, especially in the acute phase of radiation therapy. Continue steroids. This patient was seen and examined with Dr. Feliz. Discussed assessment and plan as described above. Thank you for this consult and we will follow with you. Juan Richardson APN Hussein Feliz MD
[2018-08-21] MEDS ORDERED: Ergocalciferol 50,000 Intl Units Cap PO SCH (16:00)
[2018-08-21] MEDS: Insulin Detemir 100 units/ml Vial (Levemir) SC SCH (22:24)
[2018-08-22] MEDS: Albuterol-Ipratrop 3 mg / 0.5 (3 ml) UD IH SCH ×4 (01:41→19:57)
--- NOTE | 2018-08-22 03:39 | PN ---
DATE: 08/21/2018 ONCOLOGY PROGRESS NOTE LOCATION: The patient is in room 303, bed 1. SUBJECTIVE: The patient is sitting out of bed, is doing well in physical therapy, did physical therapy twice today, overall feels better. No headaches, rhinitis, chest pain, abdominal pain, nausea, vomiting, diarrhea. Leg pain is better. The patient reports improving cough, decrease in shortness of breath. She still feels occasionally oozy when she tries to get up and walk, also complains of some tremulousness in the legs, probably related to the steroids and it might be prudent to cut back on the diuretics as well. PHYSICAL EXAMINATION: GENERAL: The patient is in no acute distress. VITAL SIGNS: Blood pressure is 105/67, pulse is 92, T-max is 98.4, O2 sat is 95%. HEENT: Head is normocephalic, atraumatic. Conjunctivae pale. Pupils are equally reactive to light and accommodation. No oropharyngeal lesions are noted. NECK: Supple. There is no adenopathy. LUNGS: Reveal few rhonchi bilaterally. CARDIOVASCULAR SYSTEM: Reveals S1 and S2 to be normal. No gallop or murmur is heard. ABDOMEN: Soft, protuberant. No rebound, rigidity, or guarding is noted. EXTREMITIES: Reveal trace bilateral lower extremity edema, significantly improved from before. NEUROLOGIC: Reveals higher functions to be normal. No focal deficits are noted. Plantars are flexors. GENITOURINARY/RECTAL: Deferred. MEDICATIONS: Reviewed. The patient is on Tylenol 650 every 4 hours p.r.n. for temperature greater than 100.4, Mucomyst 4 mL inhalation twice a day, DuoNeb 3 mL inhalation every 6 hours, Brovana 15 mcg every 12 hours, aspirin 81 mg daily, Lipitor 40 mg daily, Pulmicort 0.5 mg every 12 hours, Lasix 40 mg twice a day, heparin 5000 units subcutaneous every 8 hours, Levemir 40 units subcutaneous at bedtime, Humalog sliding scale at bedtime, Humalog 20 units in the morning, Synthroid 100 mcg daily, meclizine 12.5 mg 3 times a day, Glucophage 500 mg twice a day, Solu-Medrol 20 mg, metoprolol tartrate 25 mg daily, Xalkori 250 mg p.o. b.i.d., pantoprazole 40 mg daily, potassium chloride 20 mEq daily. 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 The patient has already had 3 weeks of radiation, and she still has about 7 treatments to go. There is no evidence of disease progression on the most recent scans that were done in [facility]. Plan will be to continue bronchodilators, continue IV steroids, keep the head on the bed raised at all times, sleep apnea precautions, gastric prophylaxis, deep venous thrombosis prophylaxis. We will continue the current medications and see in which direction we will proceed over the next 7-10 days. Routine post-exam instructions have been given to the patient. The patient's case was discussed with Dr. Feliz earlier this morning; spoke to Dr. Gus Jimenez as well. The patient is going to be set up for a chest tube, followed by the need to if needed be with a PleurX catheter, so it will make the quality of life easy for the patient. Slides and review of the pleural fluid samples are still not available; would become available tomorrow on 08/22/2018. Please make a note, this is a complex patient with multiple comorbid medical issues. Time spent with the patient is greater than 45 minutes. Gabby Adames MD
[2018-08-22] MEDS: Pantoprazole 40 mg EC Tab PO SCH (05:51)
[2018-08-22] MEDS: Levothyroxine 100 MCG TAB PO SCH (05:51)
[2018-08-22] MEDS: MethylPREDNISolone 40 mg Vial IVP SCH (05:54)
[2018-08-22] MEDS: Insulin Lispro (humaLOG) LOW Coverage SC SCH ×4 (07:00→21:28)
[2018-08-22] MEDS: Insulin Lispro 1 UNITS/0.01 ML SC SCH ×3 (07:03→17:30)
[2018-08-22] MEDS: Budesonide 0.5 mg/2 ml Inhal Susp UD IH SCH ×2 (07:13→19:57)
[2018-08-22] MEDS: Acetylcysteine 20% Inhal Soln (4ml) IH SCH ×2 (07:13→19:57)
[2018-08-22] MEDS: Arformoterol 15 mcg/2 ml Inh Sol IH SCH ×2 (07:13→19:57)
[2018-08-22] MEDS: Potassium Chloride 20 mEq/15 ml LIQ UD PO SCH ×3 (08:08→17:55)
[2018-08-22] MEDS: CRIZOTINIB 250 MG PO SCH ×2 (11:02→17:51)
--- NOTE | 2018-08-22 11:15 | PN ---
DATE: 08/22/2018 PULMONARY PROGRESS NOTE REFERRING PHYSICIAN: Dr. Gibson. SUBJECTIVE: The patient is lying in bed. No acute distress. No overnight events reported. Reports wearing CPAP machine last night. No headache, rhinitis, cough. chest pain, abdominal pain, nausea, vomiting, diarrhea, or leg pain reported. Reports some shortness of breath with exertion which has improved. OBJECTIVE: GENERAL: No acute distress. VITAL SIGNS: Blood pressure 132/79, pulse 75, temperature 98.5, and oxygen saturation 94%. HEENT: Moist mucous membranes. Crowded airway. Mallampati score is 4. NECK: Supple. No JVD. LUNGS: Few rhonchi bilaterally. CARDIOVASCULAR: S1 and S2, audible. ABDOMEN: Soft and nontender. No distension. No organomegaly. EXTREMITIES: +1 bilateral lower extremity edema. NEUROLOGIC: Awake, alert, and verbal. Follows commands. MEDICATIONS: Reviewed. Tylenol 650 every 4 hours p.r.n. fever greater than 100.4, Mucomyst 4 mL inhalation twice a day, DuoNeb 3 mL inhalation every 6 hours, Brovana 15 mcg every 12 hours, aspirin 81 mg daily, Lipitor 40 mg daily, Pulmicort 0.5 mg every 12 hours, ergocalciferol 50,000 units every 7 days, Lasix 40 mg twice a day, glimepiride 2 mg in the morning, heparin 5000 units subcutaneous every 8 hours, Levemir 20 units subcutaneous at bedtime, Humalog 10 units in the morning, Humalog sliding scale a.c. at bedtime, Synthroid 100 mcg daily, meclizine 12.5 mg p.o. three times a day, metformin 500 mg twice a day, Solu-Medrol 20 mg IV push daily, Lopressor 25 mg daily, Xalkori 250 mg twice a day, Protonix 40 mg daily and potassium chloride 20 mEq three times a day. LABORATORY DATA: Reviewed. POC glucose 119. IMPRESSION AND PLAN: Unresectable lung cancer with narrowing of the right mainstem bronchus, currently, undergoing radiation therapy. Bilateral pleural effusion, morbid obesity, sleep apnea syndrome, normal left ventricular ejection fraction, heart failure and hypothyroidism. Pulmonary point of view, continue bronchodilators. Continue steroids. Continue continuous positive airway pressure use at bedtime. Head of the bed elevated to 45 degrees. Sleep apnea precaution. Gastric prophylaxis and deep venous thrombosis prophylaxis. Continue to watch the patient closely for worsening of bronchial obstruction, especially in the acute phase of radiation therapy. This patient was seen and examined with Dr. Feliz. Discussed assessment and plan as described above. Thank you for this consult and we will follow with you. Juan Richardson APN Hussein Feliz MD
--- NOTE | 2018-08-22 12:38 | PN ---
DATE: 08/22/2018 ENDO FOLLOWUP NOTE LOCATION: In room 303, [facility]. SUBJECTIVE: This is a 68-year-old female with recent uncontrolled type 2 insulin-requiring diabetes, still on the low-dose IV steroid therapy as given and is now being followed closely for metabolic management. Her glycemic levels are fluctuating, ranging from 119 to 220 mg/dL. She is undergoing radiation therapy at this time for underlying stage III metastatic lung carcinoma as noted. So, at this time to allow for dose equilibration, we will keep her on the combination of oral hypoglycemic therapy with metformin given as 500 mg twice a day and Amaryl at 2 mg twice times a day before meals as ordered. We will continue also the basal and bolus insulin regimen which was modified down to Humalog given as 10 units three times a day before meals to start this morning as ordered. We will continue also the basal insulin given at a lower dose of 20 units of Levemir at bedtime daily to start tonight as ordered. We will obtain serial chemistries and supplement accordingly as needed. We will follow. Crystal Mcgregor MD
[2018-08-22] MEDS: Insulin Detemir 100 units/ml Vial (Levemir) SC SCH (21:25)
[2018-08-23] MEDS: Albuterol-Ipratrop 3 mg / 0.5 (3 ml) UD IH SCH ×4 (01:43→21:03)
[2018-08-23] MEDS: Pantoprazole 40 mg EC Tab PO SCH (05:51)
[2018-08-23] MEDS: MethylPREDNISolone 40 mg Vial IVP SCH (05:52)
[2018-08-23] MEDS: Levothyroxine 100 MCG TAB PO SCH (05:52)
[2018-08-23] MEDS: Arformoterol 15 mcg/2 ml Inh Sol IH SCH ×2 (07:07→21:02)
[2018-08-23] MEDS: Budesonide 0.5 mg/2 ml Inhal Susp UD IH SCH ×2 (07:07→21:03)
[2018-08-23] MEDS: Acetylcysteine 20% Inhal Soln (4ml) IH SCH ×2 (07:07→21:02)
[2018-08-23] MEDS: Insulin Lispro (humaLOG) LOW Coverage SC SCH ×4 (07:45→21:49)
[2018-08-23] MEDS: Insulin Lispro 1 UNITS/0.01 ML SC SCH ×2 (08:19→12:30)
[2018-08-23] MEDS: Potassium Chloride 20 mEq/15 ml LIQ UD PO SCH ×3 (08:21→17:49)
[2018-08-23] MEDS: CRIZOTINIB 250 MG PO SCH ×2 (10:21→17:47)
--- NOTE | 2018-08-23 15:56 | PN ---
DATE: 08/23/2018 PULMONARY PROGRESS NOTE REFERRING PHYSICIAN: Gerard Gibson MD. SUBJECTIVE: The patient is sitting up in chair in room. No acute distress. No overnight events reported. The patient reports feeling well today. No headache, rhinitis, cough. chest pain, abdominal pain, nausea, vomiting, diarrhea, leg pain, or leg swelling reported. The patient reports some shortness of breath at times at exertion. PHYSICAL EXAMINATION: GENERAL: No acute distress. VITAL SIGNS: Blood pressure 118/78, pulse 71, and temperature 98.1. HEENT: Moist mucous membranes. Crowded airway. Mallampati score is 4. NECK: Supple. No JVD. LUNGS: Few scattered rhonchi bilaterally. CARDIOVASCULAR: S1 and S2 audible. ABDOMEN: Soft and nontender. No distension. No organomegaly. EXTREMITIES: 1 to 2 bilateral lower extremity edema. NEUROLOGICAL: Awake, alert, verbal, and follows commands. MEDICATIONS: Reviewed. Tylenol 650 mg every 4 hours p.r.n., Mucomyst 4 mL inhalation twice a day, DuoNeb 3 mL inhalation every 6 hours, Brovana 15 mcg every 12 hours, aspirin 81 mg daily, Lipitor 40 mg daily, Pulmicort 3.5 mg every 12 hours, ergocalciferol 50,000 units every 7 days, Lasix 40 mg twice a day, glimepiride 2 mg in the morning, heparin 5000 units subcutaneous every 8 hours, Levemir 20 units subcutaneous at bedtime, Humalog 10 units subcutaneous before meals, Humalog sliding scale before meals and at bedtime, Synthroid 100 mcg daily, meclizine 12.5 mg three times a day, metformin 500 mg twice a day, Solu-Medrol 20 mg IV push daily, metoprolol tartrate 25 mg daily, Xalkori 250 mg twice a day, Protonix 40 mg daily, and potassium chloride 20 mEq three times a day. LABORATORY DATA: Reviewed. POC glucose 183. IMPRESSION AND PLAN: Unresectable lung cancer with narrowing of the right mainstem bronchus, currently undergoing radiation therapy; bilateral pleural effusion, morbid obesity, sleep apnea syndrome, normal left ventricular ejection fraction, heart failure, and hypothyroidism . Pulmonary point of view, continue bronchodilators. We will discontinue Solu-Medrol and start the patient on prednisone 15 mg daily, for taper in a few days. Continue continuous positive airway pressure use at bedtime and head of bed elevated at 45 degrees. Sleep apnea precaution. Gastric prophylaxis and deep vein thrombosis prophylaxis. The patient upon discharge, home should go home with rescue inhaler and will need PFT as outpatient. The patient should continue to use continuous positive airway pressure machine at home for sleep apnea syndrome. This patient was seen and examined with Dr. Feliz. Discussed assessment and plan as described above. Thank you for this consult. We will follow with you. Juan Richardson APN Hussein Feliz MD DAVID
--- NOTE | 2018-08-23 17:23 | PN ---
DATE: 08/23/2018 ENDO FOLLOWUP NOTE ROOM: 303 SUBJECTIVE: This is a 68-year-old female with recent uncontrolled type 2 insulin-requiring diabetes, currently switched over now from IV to oral steroids, on prednisone at 50 mg once daily as given. Her glycemic levels have dramatically dropped overnight and the glucose levels were 35 early this morning and the repeat levels otherwise have ranged from 128-183 mg/dL. So at this time, we will actually discontinue the basal and bolus insulin regimen as ordered with Levemir given as 20 units subcu at bedtime daily and Humalog given as 10 units t.i.d. before meals as ordered. We will continue the low-dose correction scale using Humalog insulin as given. We will continue also the oral hypoglycemic drug therapy as given with Amaryl at 2 mg b.i.d. before meals and metformin at 500 mg b.i.d. after meals as ordered. We will obtain serial chemistries and supplement accordingly as needed. We will follow. Crystal Mcgregor MD
--- NOTE | 2018-08-24 01:12 | PN ---
DATE: 08/23/2018 ONCOLOGY PROGRESS NOTE SUBJECTIVE: The patient is sitting up in the chair without any significant issues. No acute events noted overnight. The patient reports feeling well. No headaches. No rhinitis, cough, chest pain, abdominal pain, nausea, vomiting, diarrhea, leg pain or leg swelling noted. The patient reports some shortness of breath on exertion. Has been able to walk around even without oxygen, been feeling okay. PHYSICAL EXAMINATION: GENERAL: Reveals the patient to be in no acute distress. VITAL SIGNS: Stable. Blood pressure is 118/78, pulse is 71, and T-max is 98.4. HEENT: Head is normocephalic and atraumatic. Conjunctivae pale. Examination of oropharynx reveals no oropharyngeal lesion. NECK: Supple. There is no adenopathy. No jugular venous distention noted. LUNGS: Reveal scattered wheezes bilaterally, though air entry is much improved in the right lung since the radiation has been ongoing. CARDIOVASCULAR SYSTEM: Reveals S1 and S2 to be normal. No gallop or murmur is heard. ABDOMEN: Soft, nontender. No rebound, rigidity, or guarding is noted. EXTREMITIES: There is 1+ pitting edema in lower extremities, which is improved significantly. NEUROLOGIC: Reveals higher functions to be normal. No focal deficits are noted. Symptoms of dizziness. Thoughts appear to be better on the meclizine. MEDICATIONS: The patient's medications are reviewed. She is on Tylenol every 4 hours p.r.n. 650 mg, Mucomyst 4 mL inhalation twice a day, DuoNeb 3 mL inhalation every 6 hours, Brovana 15 mcg every 12 hours, aspirin 81 mg daily, Lipitor 40 mg daily, Pulmicort mg every 12 hours, vitamin D 50,000 units once a week, Lasix 40 mg twice a day, glimepiride 2 mg in the morning, heparin 5000 units subcu every 8 hours, Levemir 20 units subcu at bedtime, Humalog 10 units subcu before meals, Humalog in sliding scale from meals at bedtime, Synthroid 100 mcg daily, meclizine 12.5 mg three times a day, metformin 500 mg twice a day, Solu-Medrol 20 mg IV once daily which has been switched over to prednisone now of 20 mg daily, metoprolol 25 mg daily, Xalkori 250 mg twice a day, Protonix 40 mg daily, and potassium chloride 20 mEq three times a day. LABORATORY DATA: From 08/19/2018 is adequate at this time. No new labs have been done recently. ASSESSMENT, NOTES, AND PLAN: The patient has stage IIIB non-small cell lung carcinoma who is currently on radiation to the right mainstem bronchus, bilateral pleural effusion, morbid obesity, sleep apnea syndrome, normal left ventricular ejection fraction, heart failure, hypothyroidism. The patient is on bronchodilators, deep vein thrombosis prophylaxis and gastrointestinal prophylaxis. Prednisone has been added now and has been switched over from Solu-Medrol and will be tapered over the next several days. The patient is using continuous positive airway pressure at nighttime and having sleep apnea precautions. Plan is to continue and finish radiation by Tuesday, and then the patient could be discharge and she will continue her on next five treatments as an outpatient. She will continue her continuous positive airway pressure at home, which she already has. She will continue nebulizer treatments at home. In the meantime, I am writing out the prescriptions that needs to get at home. Sugars will also be monitored at home with fingerstick blood sugars. train announcer is also going to be seeing the patient. I had a detailed discussion with Dr. Feliz who is also involving the management of this patient. Routine post exam instructions have been given to the patient. Time spent with the patient is greater than 45 minutes. Medications for discharge have been given to the patient who will have that ready for her when the patient is ready for discharge in the next few days. Please make a note, this is a complex patient with multiple comorbid medical issues. Gabby Adames MD
[2018-08-24] MEDS: Albuterol-Ipratrop 3 mg / 0.5 (3 ml) UD IH SCH ×4 (01:44→20:38)
[2018-08-24] MEDS: Levothyroxine 100 MCG TAB PO SCH (06:09)
[2018-08-24] MEDS: Pantoprazole 40 mg EC Tab PO SCH (06:09)
[2018-08-24] MEDS: Insulin Lispro (humaLOG) LOW Coverage SC SCH ×4 (06:52→21:18)
[2018-08-24] MEDS: Acetylcysteine 20% Inhal Soln (4ml) IH SCH ×2 (07:16→20:37)
[2018-08-24] MEDS: Arformoterol 15 mcg/2 ml Inh Sol IH SCH ×2 (07:16→20:37)
[2018-08-24] MEDS: Budesonide 0.5 mg/2 ml Inhal Susp UD IH SCH ×2 (07:16→20:38)
[2018-08-24] MEDS: Potassium Chloride 20 mEq/15 ml LIQ UD PO SCH ×3 (08:14→17:16)
[2018-08-24] MEDS: CRIZOTINIB 250 MG PO SCH ×2 (10:21→17:15)
--- NOTE | 2018-08-24 12:43 | PN ---
DATE: 08/24/2018 PULMONARY PROGRESS NOTE REFERRING PHYSICIAN: Gerard Gibson MD SUBJECTIVE: The patient in bed, in no acute distress. No overnight events reported. Reports using CPAP machine last night. No headache, rhinitis, cough, chest pain, abdominal pain, nausea, vomiting, diarrhea, leg pain or leg swelling reported. Reports some shortness of breath at times with exertion. OBJECTIVE: GENERAL: No acute distress. VITAL SIGNS: Blood pressure 98/65, pulse 68, oxygen saturation 95%, temperature 98.1, HEENT: Moist mucous membranes. Crowded airway. Mallampati score of 4. NECK: Supple. No JVD. LUNGS: Few scattered rhonchi bilaterally. CARDIOVASCULAR: S1, S2 audible. ABDOMEN: Soft, nontender. No distension. No organomegaly. EXTREMITIES: Bilateral lower extremity edema. NEUROLOGIC: Awake, alert, verbal, follows commands. MEDICATIONS: Reviewed. Tylenol 650 every 4 hours p.r.n. fever greater than 100.4, Mucomyst 4 mL inhalation twice a day, DuoNeb 3 mL inhalation every 6 hours, Brovana 15 mcg every 12 hours, aspirin 81 mg daily, Lipitor 40 mg daily, Pulmicort 0.5 mg every 12 hours, ergocalciferol 50,000 units 1 cap daily, Lasix 40 mg twice a day, glimepiride 2 mg in the morning, heparin 5000 units subcutaneously every 8 hours, Humalog sliding scale a.c. and at bedtime, Synthroid 100 mcg daily, Antivert 12.5 mg 3 times a day, metformin 500 mg twice a day, metoprolol 25 mg daily, Xalkori 250 mg twice a day, Protonix 40 mg daily, potassium chloride 20 mEq 3 times a day, prednisone 10 mg daily. LABORATORY DATA: Reviewed. POC glucose 95. IMPRESSION AND PLAN: Unresectable lung cancer with narrowing of the right mainstem bronchus, currently undergoing radiation therapy, bilateral pleural effusion, morbid obesity, sleep apnea syndrome, normal left ventricular ejection fraction, heart failure, hypothyroidism. Pulmonary point of view, continue with her bronchodilators. We will discontinue prednisone 10 mg and was already given today and start 5 mg tomorrow, and we will discontinue prednisone entirely. Continue CPAP use at bedtime, head of bed elevated to 45 degrees, sleep apnea precaution, gastric prophylaxis, deep venous thrombosis prophylaxis. The patient should go home with rescue inhaler, will need full pulmonary function test as outpatient. Continue CPAP machine at home for sleep apnea syndrome. This patient was seen and examined with Dr. Feliz. Discussed assessment and plan as described above. Thank you for this consult. We will follow with you. Juan Richardson APN Hussein Feliz MD
--- NOTE | 2018-08-24 19:19 | PN ---
DATE: 08/24/2018 ENDOCRINOLOGY FOLLOWUP NOTE LOCATION: In room 303. SUBJECTIVE: This is a 68-year-old female with recent uncontrolled type 2 insulin-requiring diabetes now being followed closely for metabolic management. Her glycemic levels have been remarkably improved and actually low normal overnight with glucose values ranging from 95-140 and 156 mg/dL. Her latest chemistries showed BUN of 28, sodium 133, potassium 4.2, chloride 90, CO2 is 40, glucose 90, and creatinine is 1.1. So, at this time, we will actually discontinue the glimepiride given as 2 mg b.i.d. before meals as ordered. We will continue only the metformin given as 500 mg b.i.d. after meals as ordered. We will obtain serial chemistries and supplement accordingly as needed. We will follow. Crystal Mcgregor MD
[2018-08-25] MEDS: Albuterol-Ipratrop 3 mg / 0.5 (3 ml) UD IH SCH ×4 (02:00→21:15)
[2018-08-25] MEDS: Levothyroxine 100 MCG TAB PO SCH (05:18)
[2018-08-25] MEDS: Pantoprazole 40 mg EC Tab PO SCH (05:18)
[2018-08-25] MEDS: Insulin Lispro (humaLOG) LOW Coverage SC SCH ×4 (06:59→22:05)
[2018-08-25] MEDS: Budesonide 0.5 mg/2 ml Inhal Susp UD IH SCH ×2 (07:02→21:15)
[2018-08-25] MEDS: Arformoterol 15 mcg/2 ml Inh Sol IH SCH ×2 (07:02→21:15)
[2018-08-25] MEDS: Acetylcysteine 20% Inhal Soln (4ml) IH SCH ×2 (07:02→21:15)
--- NOTE | 2018-08-25 08:01 | PN ---
DATE: 08/24/2018 This is [facility] visit on TCU. For Dr. Adames. SUBJECTIVE: The patient is a 68-year-old female, now participating with TCU protocols with plan to discharge home tomorrow with the patient otherwise in no acute distress. She was admitted for deconditioning, unresectable stage IIIB non-small cell CA of the lung. She will continue radiation treatments here also. PHYSICAL EXAMINATION: VITAL SIGNS: Temperature 97.4, pulse 80, respirations 20, blood pressure 103/69, pulse ox 99%. HEENT: Unremarkable. NECK: Supple. HEART: Regular rate. LUNGS: Occasional rhonchi. ABDOMEN: Obese, soft and nontender. EXTREMITIES: Faint +1 edema bilaterally of the legs. NEUROLOGIC: Awake and alert. SKIN: Warm and dry. ASSESSMENT: Deconditioning; unresectable lung cancer, on radiation; sleep apnea; hypothyroidism. PLAN: For this patient is to continue present medical regimen with plan discharge home in a.m. on present medical regimen as per Dr. Adames. This is a complex patient with a comprehensive medically necessary and appropriate visit carried out in excess of 15 minutes with the patient's questions answered to her satisfaction. Gerard Gibson MD
[2018-08-25] MEDS: CRIZOTINIB 250 MG PO SCH ×2 (10:22→17:27)
[2018-08-25] MEDS: Potassium Chloride 20 mEq/15 ml LIQ UD PO SCH ×3 (10:23→17:30)
[2018-08-25 12:43] LABS: BASO # 0.02 K/mm3 (0.0-2.0); BASO % 0.2 % (0.0-3.0); EOS % 0.3 % (1.5-5.0); GRAN # 11.1 (1.4-6.5); GRAN % 88.3 % (50.0-68.0); HEMOGLOBIN 10.6 g/dL (12.0-16.0); LYMPH # 0.8 (1.2-3.4); LYMPH % 6.1 % (22.0-35.0); MEAN CELL VOLUME 75.8 fl (80.0-105.0); MEAN CORPUSCULAR HEMOGLOBIN 22.7 pg (25.0-35.0); MEAN PLATELET VOLUME 9.6 fl (7.0-11.0); MONO # 0.6 (0.1-0.6); MONO % 5.1 % (1.0-6.0); RBC 4.66 10^6/uL (3.5-6.1); RED CELL DISTRIBUTION WIDTH 25.8 % (11.5-14.5); WHITE BLOOD COUNT 12.6 10^3/uL (4.5-11.0)
[2018-08-25 12:57] LABS: ALB/GLOB RATIO 0.9 (1.1-1.8); ALBUMIN 2.8 g/dL (3.0-4.8); CALCIUM 8.6 mg/dL (8.4-10.5)
--- NOTE | 2018-08-25 14:31 | PN ---
DATE: 08/25/2018 PULMONARY PROGRESS NOTE REFERRING PHYSICIAN: Gerard Gibson MD SUBJECTIVE: The patient is seen in room. No acute distress. No overnight events reported. The patient reports that radiation therapy was cut short today due to the patient having episode of vertigo. Reports shortness of breath has improved. Reports using CPAP machine last night. No headache, rhinitis, chest pain, abdominal pain, nausea, vomiting, diarrhea, leg pain, or leg swelling reported. OBJECTIVE: GENERAL: No acute distress. VITAL SIGNS: Blood pressure 107/65, pulse 84, temperature 97.4, and oxygen saturation 99%. HEENT: Moist mucous membranes. Mallampati score of 4. Crowded airway. NECK: Supple. No JVD. LUNGS: Few scattered rhonchi bilaterally. CARDIOVASCULAR: S1 and S2 audible. ABDOMEN: Soft and nontender. No distension. No organomegaly. EXTREMITIES: Bilateral lower extremity edema. NEUROLOGIC: Awake, alert, and verbal. Follows commands. MEDICATIONS: Reviewed. Tylenol 650 mg every 4 hours p.r.n. for fever greater than 100.4, Mucomyst 4 mL inhalation twice a day, DuoNeb 3 mL inhalation every 6 hours, Brovana 15 mcg every 12 hours, aspirin 81 mg daily, Lipitor 40 mg daily, Pulmicort 0.5 mg every 12 hours, ergocalciferol 1 cap every seven days, Lasix 40 mg twice a day, heparin 5000 units subcutaneously every 8 hours, Humalog sliding scale before meals and at bedtime, Synthroid 100 mcg daily, meclizine 12.5 mg three times a day, metformin 500 mg twice a day, metoprolol tartrate 25 mg daily, Xalkori 250 mg twice a day, Protonix 40 mg daily, potassium chloride 20 mEq three times a day, and prednisone 5 mg p.o. daily. LABORATORY DATA: Reviewed. WBC 4.6, RBC 4.66, hemoglobin 10.6, hematocrit 35.3, and platelets 362. POC glucose 140. IMPRESSION AND PLAN: Unresectable lung cancer with narrowing of the right mainstem bronchus, currently undergoing radiation therapy; bilateral pleural effusion; morbid obesity; sleep apnea syndrome; normal left ventricular ejection fraction with heart failure; and hypothyroidism. Pulmonary point of view, we will increase prednisone to 10 mg for the patient to have prednisone 10 mg times three days, then 5 mg times three days, then discontinue. Prescription written and given to nurse. Discussed with the patient, prednisone tapering dose. Discussed with the patient continuing continuous positive airway pressure use at bedtime, head of bed elevated at 45 degrees, and sleep apnea precaution. The patient is scheduled to be discharged home today; will need full pulmonary function test as outpatient. Continue to use continuous positive airway pressure machine at home for sleep apnea syndrome. This patient was seen and examined with Dr. Feliz. Discussed assessment and plan as described above. Thank you for this consult. We will follow with you. Juan Richardson APN Hussein Feliz MD
--- NOTE | 2018-08-25 20:27 | PN ---
DATE OF VISIT: 08/25/2018 This is [facility] visit on TCU. For Dr. Adames. SUBJECTIVE: The patient is a 68-year-old female with recommended discharge earlier today; however, the patient did have an episode of lightheadedness, dizziness with hypotension, for which she was recommended to stay with followup by report analyst and labs to be drawn. She is, otherwise, being treated for unresectable stage IIIB non-small cell CA of the lung. The patient is also known to suffer from hypothyroidism, sleep apnea, DJD, obesity, mild dementia, history of subendocardial OK with atrial fibrillation, COPD, with history of colon cancer with resection. At present, her meclizine is at low dose. We will increase the meclizine and ask for a reconsult with her cardiologists, Dr. Delarosa and Dr. Fong. OBJECTIVE/PHYSICAL EXAMINATION: VITAL SIGNS: Temperature 97.4, pulse 81, respirations 20, blood pressure 103/69 with previous blood pressure of 98/65, pulse ox 99%. LABORATORY DATA: The patient's labs were done today. White blood cell count of 12.6, hemoglobin of 10.6, hematocrit 35.3, platelet count of 362,000. Her metabolic panel showed BUN of 27, creatinine of 1.29, fasting glucose of 140, AST of 37, ALT of 76, otherwise, normal panel. ASSESSMENT: For this patient is that of deconditioning, new-onset dizziness/hypotension, exacerbation of chronic obstructive pulmonary disease, stage III non-small cell carcinoma of the lung, history of cancer of the colon, hypothyroidism, gastroesophageal reflux disease, obesity, degenerative joint disease, anemia of chronic disease, history of paroxysmal atrial fibrillation, mild dementia, history of non-ST elevated myocardial infarction. PLAN: For this patient is to continue present medical regimen. We will ask for a reconsult with Dr. Fong and Dr. Delarosa regarding her blood pressure medications. We will increase her meclizine to 25 mg twice a day from 12.5 three times a day to see if this might improve her dizziness episodes with consideration of discharge home once she is stable. Gerard Gibson MD
[2018-08-26] MEDS: Pantoprazole 40 mg EC Tab PO SCH (06:15)
[2018-08-26] MEDS: Levothyroxine 100 MCG TAB PO SCH (06:15)
[2018-08-26] MEDS: Insulin Lispro (humaLOG) LOW Coverage SC SCH ×3 (06:50→17:39)
[2018-08-26] MEDS: Acetylcysteine 20% Inhal Soln (4ml) IH SCH (07:14)
[2018-08-26] MEDS: Arformoterol 15 mcg/2 ml Inh Sol IH SCH (07:14)
[2018-08-26] MEDS: Albuterol-Ipratrop 3 mg / 0.5 (3 ml) UD IH SCH ×2 (07:15→13:42)
[2018-08-26] MEDS: Budesonide 0.5 mg/2 ml Inhal Susp UD IH SCH (07:15)
[2018-08-26] MEDS: Potassium Chloride 20 mEq/15 ml LIQ UD PO SCH (08:06)
[2018-08-26 08:07] VITALS: BP 131/61
--- NOTE | 2018-08-26 09:15 | PN ---
DATE: 08/26/2018 SUBJECTIVE: The patient is seen sitting in bed on Transitional Care Unit. She reportedly has had some intermittent dizziness with change in position and transient low blood pressure at times. She remains on twice a day dosing of Lasix. MEDICATIONS: Include Mucomyst, Antivert, aspirin, Brovana, Xalkori, DuoNeb inhaler, Glucophage, subcutaneous heparin, Lasix 40 mg twice a day, Lipitor, metoprolol 25 mg daily, potassium supplement, prednisone 5 mg daily, Protonix, Pulmicort, and Synthroid. OBJECTIVE: GENERAL: She is a overweight middle-aged woman. VITAL SIGNS: Blood pressure is 110/68 with a pulse of 66, respirations are 16. She is afebrile. HEENT: No JVD. CHEST: Reveals few scattered rhonchi. No rales heard. HEART: PMI is somewhat distant and no pathological gallops noted. ABDOMEN: Soft, obese, nontender with normoactive bowel sounds. EXTREMITIES: No edema. DIAGNOSTIC DATA: Potassium 4.3, BUN and creatinine 27 and 1.2. White count 12.6, hemoglobin and hematocrit 10.6 and 35.3 with platelet count 362,000. IMPRESSION: 1. Low normal blood pressure with orthostatic changes appears somewhat volume depleted in prerenal likely due to excess diuretic use. 2. Rest of problems as noted. RECOMMENDATIONS: Lasix and potassium will be discontinued at this time. From a cardiac standpoint, she appears stable for discharge home. She is encouraged to liberalize her fluid intake for the next day or so. If she has recurrence of edema as an outpatient, low-dose diuretics can be resumed. We will be happy to see as an outpatient if needed. Vidal Fong MD
[2018-08-26] MEDS: CRIZOTINIB 250 MG PO SCH ×2 (09:39→17:38)
--- NOTE | 2018-08-26 12:29 | PN ---
DATE: 08/26/2018 LOCATION: [facility] SUBJECTIVE: This is a 68-year-old female with recent uncontrolled type 2 insulin-requiring diabetes now taken off all insulin therapy with the switching over from IV to oral steroid therapy as noted. Her glycemic levels overnight have improved and have ranged from 104-151 and 219 mg/dl. Her chemistry showed a BUN of 27, sodium 133, potassium 4.4, chloride 93, CO2 of 38, glucose 88 and creatinine 1.2. PLAN: So at this time, we will continue the low-dose oral hypoglycemic therapy with metformin given as 500 mg twice daily with meals as ordered. We will also continue the low-dose correction scale using Humalog insulin as given. We will obtain serial chemistries and supplement accordingly as needed. We will also hold off the resumption of any basal or premixed insulin for now as she has improved remarkably with just oral hypoglycemic therapy as given. We will follow and advise accordingly. Crystal Mcgregor MD
[2018-08-26 16:51] VITALS: PULSE 63; RESP 20; TEMP 97.8; O2SAT 100
--- NOTE | 2018-08-26 17:37 | PN ---
DATE: 08/26/2018 PULMONARY PROGRESS NOTE REFERRING PHYSICIAN: Dr. Gibson. SUBJECTIVE: The patient is sitting up in arm chair in room. No acute distress. Reports being discharged home today. Reports shortness of breath at times with exertion. No cough. No headache, rhinitis, chest pain, abdominal pain, nausea, vomiting, diarrhea, or leg pain reported. The patient does report some leg swelling. OBJECTIVE: GENERAL: No acute distress. VITAL SIGNS: Blood pressure 131/61, pulse 65, temperature 97.7, oxygen saturation 98% on oxygen. HEENT: Moist mucous membranes. Mallampati score of 4. Crowded airway. NECK: Supple. No JVD. LUNGS: Mild respiratory wheezing bilaterally; diffuse scattered rhonchi. CARDIOVASCULAR: S1 and S2 audible. ABDOMEN: Soft and nontender. No distension. No organomegaly. EXTREMITIES: Bilateral lower extremity edema. NEUROLOGIC: Awake, alert, and verbal. Follows commands. MEDICATIONS: Reviewed. Tylenol 650 mg every 4 hours p.r.n. for fever greater than 100.4, Mucomyst 4 mL inhalation twice a day, DuoNeb 3 mL inhalation every 6 hours, Brovana 15 mcg every 12 hours, aspirin 81 mg daily, Lipitor 40 mg daily, Pulmicort 0.5 mg inhalation every 12 hours, ergocalciferol 50,000 units 1 cap every seven days, heparin 5000 units subcutaneously every 12 hours, Humalog sliding scale a.c. and at bedtime, Synthroid 100 mcg daily, Antivert 25 mg twice a day, metformin 500 mg twice a day, metoprolol tartrate 25 mg daily, Xalkori 250 mg twice a day, Protonix 40 mg daily, and prednisone 5 mg daily. LABORATORY DATA: Reviewed. POC glucose 151. IMPRESSION AND PLAN: Chronic obstructive pulmonary disease exacerbation, stage 3 non-small cell carcinoma of the lung, history of cancer of the colon, hypothyroidism, gastroesophageal reflux disease, obesity, degenerative joint disease, anemia, history of paroxysmal atrial fibrillation, history of non-ST elevated myocardial infarction, sleep apnea, normal left ventricular ejection fraction, heart failure, and bilateral pleural effusion. Pulmonary point of view, instructed the patient to take prednisone 10 mg for three days, then 5 mg for three days when she is home. Prescription was given to nurse yesterday. Discussed with the patient to continue continuous positive airway pressure use at bedtime, head of bed elevated at 45 degrees, and sleep apnea precaution. The patient will need full pulmonary function test as outpatient. This patient was seen and examined with Dr. Feilz. Discussed assessment and plan as described above. Thank you for this consult. We will follow with you. Juan Richardson APN Hussein Feliz MD
--- NOTE | 2018-08-27 19:06 | CP.PCM.DIS ---
Provider - Provider Date of Admission: 08/18/18 14:52 Attending physician: Gerard Gibson MD Consults: 08/18/18 16:21 Physician Consult Routine Comment: Consulting Provider: Eagle Delarosa Consulting Physician: Eagle Delarosa Reason for Consult: sob 08/18/18 16:24 Physician Consult Routine Comment: Consulting Provider: Sarah Sinha Consulting Physician: Sarah Sinha Reason for Consult: radiation 08/18/18 16:25 Physician Consult Routine Comment: Consulting Provider: Hussein Feliz Consulting Physician: Hussein Feliz Reason for Consult: pleural effusion 08/18/18 16:27 Physician Consult Routine Comment: Consulting Provider: Crystal Mcgregor Consulting Physician: Crystal Mcgregor Reason for Consult: hyperglycemia 08/18/18 20:09 Social Work Referral Routine Comment: equipment Physician Instructions: Reason For Exam: discharge plan 08/22/18 11:00 Diabetic Education Referral Routine Comment: Physician Instructions: Reason For Exam: diabetic teaching 08/25/18 16:28 Consult [Physician Consult] Routine Comment: Consulting Provider: Vidal Fong Consulting Physician: Vidal Fong Reason for Consult: reconsult low bp Time Spent in preparation of Discharge (in minutes): 30 Hospital Course - Lab Results Lab Results: Most Recent Lab Values WBC 12.6 10^3/uL (4.5-11.0) H 08/25/18 12:30 RBC 4.66 10^6/uL (3.5-6.1) 08/25/18 12:30 Hgb 10.6 g/dL (12.0-16.0) L 08/25/18 12:30 Hct 35.3 % (36.0-48.0) L 08/25/18 12:30 MCV 75.8 fl (80.0-105.0) L 08/25/18 12:30 MCH 22.7 pg (25.0-35.0) L 08/25/18 12:30 MCHC 30.0 g/dl (31.0-37.0) L 08/25/18 12:30 RDW 25.8 % (11.5-14.5) H 08/25/18 12:30 Plt Count 362 10^3/uL (120.0-450.0) 08/25/18 12:30 MPV 9.6 fl (7.0-11.0) 08/25/18 12:30 Gran % 88.3 % (50.0-68.0) H 08/25/18 12:30 Lymph % (Auto) 6.1 % (22.0-35.0) L 08/25/18 12:30 [place] % (Auto) 5.1 % (1.0-6.0) 08/25/18 12:30 Eos % (Auto) 0.3 % (1.5-5.0) L 08/25/18 12:30 Baso % (Auto) 0.2 % (0.0-3.0) 08/25/18 12:30 Gran # 11.10 (1.4-6.5) H 08/25/18 12:30 Lymph # (Auto) 0.8 (1.2-3.4) L 08/25/18 12:30 [place] # (Auto) 0.6 (0.1-0.6) 08/25/18 12:30 Eos # (Auto) 0.0 (0.0-0.7) 08/25/18 12:30 Baso # (Auto) 0.02 K/mm3 (0.0-2.0) 08/25/18 12:30 Sodium 133 mmol/L (132-148) 08/25/18 12:30 Potassium 4.4 mmol/L (3.6-5.0) 08/25/18 12:30 Chloride 93 mmol/L (98-107) L 08/25/18 12:30 Carbon Dioxide 38 mmol/L (21-33) H 08/25/18 12:30 Anion Gap 7 (10-20) L 08/25/18 12:30 BUN 27 mg/dL (7-21) H 08/25/18 12:30 Creatinine 1.2 mg/dl (0.7-1.2) 08/25/18 12:30 Est GFR ( Amer) 54 08/25/18 12:30 Est GFR (Non-Af Amer) 45 08/25/18 12:30 POC Glucose (mg/dL) 157 mg/dL (65-110) H 08/26/18 16:28 Random Glucose 88 mg/dL (70-110) 08/25/18 12:30 Hemoglobin A1c 7.8 % (4.2-6.5) H 08/19/18 07:00 Calcium 8.6 mg/dL (8.4-10.5) 08/25/18 12:30 Total Bilirubin 0.5 mg/dL (0.2-1.3) 08/25/18 12:30 AST 37 U/L (14-36) H D 08/25/18 12:30 ALT 76 U/L (7-56) H 08/25/18 12:30 Alkaline Phosphatase 120 U/L (38-126) 08/25/18 12:30 Total Protein 5.9 g/dL (5.8-8.3) 08/25/18 12:30 Albumin 2.8 g/dL (3.0-4.8) L 08/25/18 12:30 Globulin 3.0 gm/dL 08/25/18 12:30 Albumin/Globulin Ratio 0.9 (1.1-1.8) L 08/25/18 12:30 - Hospital Course Hospital Course: Ms. 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 Patient optimized for COPD and initaited on steroid taper which she will complete as an outpatient. Cardiology consulted and found that patient not to be in need of additional diuresis and patient's home diuretics were held. Patietn started on Metformin due to steroid induced hyerglycemia. Patient has outpatient follow-up with oncology, pulmonology, and cardiolgoy. Patient to conitnue with XRT as oputpatient and crizotonib as ouptpatient. Continues with home oxygen additionally. - Date & Time of H&P Date of H&P: 08/26/18 Time of H&P: 21:00 Discharge Exam - Head Exam Head Exam: ATRAUMATIC, NORMAL INSPECTION, NORMOCEPHALIC - Neck Exam Neck exam: Full Rom - Respiratory Exam Respiratory Exam: Clear to PA & Lateral, NORMAL BREATHING PATTERN, UNREMARKABLE. absent: Accessory Muscle Use, Decreased Breath Sounds - Cardiovascular Exam Cardiovascular Exam: REGULAR RHYTHM - GI/Abdominal Exam GI & Abdominal Exam: Normal Bowel Sounds - Extremities Exam Extremities exam: pedal edema - Skin Skin Exam: Dry, Intact, Normal Color, Warm Discharge Plan - Discharge Medications Prescriptions: Meclizine [Meclizine*] 25 mg PO BID PRN #60 tab PRN Reason: Dizziness metFORMIN [glucOPHAGE] 500 mg PO BID #60 tab predniSONE [predniSONE Tab] 10 mg PO DAILY 3 Days tab - Follow Up Plan Condition: GOOD Disposition: HOME/ ROUTINE Instructions: Type 2 Diabetes, Non-small Cell Lung Cancer, Obstructive Sleep Apnea, Adult (DC), Exacerbation of COPD, Heart Failure (DC), Heart Failure (GEN), Pacemaker (DC), Pacemaker (GEN), Pulmonary Edema (DC), Pulmonary Edema (GEN), Ascites (DC), Ascites (GEN) Additional Instructions: Please follow up with your PMD 1 week after d/c. Please continue your medications as per MD order.
--- NOTE | 2018-08-28 08:48 | PN ---
DATE: 08/25/2018 ENDOCRINOLOGY FOLLOWUP NOTE LOCATION: Room 303. SUBJECTIVE: This is a 68-year-old female with known history of lung carcinoma, currently receiving radiation therapy and is now also being followed closely for metabolic management because of recent hyperglycemic accelerations as noted thereof. Her glucose values overnight are fluctuating but improved and have ranged from 140-202 and 176 mg/dL. LABORATORY DATA: Her latest chemistry showed a BUN of 27, sodium 133, potassium 4.4, chloride 93, CO2 of 38, glucose 88 and creatinine 1.2. ASSESSMENT AND PLAN: So at this time, we will modify her oral hypoglycemic therapy by actually discontinuing the Amaryl therapy given twice a day as ordered. We will continue her metformin given as 500 mg twice a day after meals as ordered. We will also continue the low-dose correction scale using Humalog insulin as given. We have actually discontinue all of the basal and bolus insulin regimen as given. We will follow. Crystal Mcgregor MD
== END 2018-08-26 19:51 | disposition home or self-care (01) | DRG 191 ==
LOC: TRCU 14:52
PROVIDERS: ADMIT Family Medicine; ATTEND Family Medicine
PROC: F07Z9FZ Gait Training/Functional Ambulation Treatment using Assistive, Adaptive, Supportive or Protective Equipment (ICD-10-PCS; principal; 2018-08-18)
PROC: F07M6ZZ Therapeutic Exercise Treatment of Musculoskeletal System - Whole Body (ICD-10-PCS; 2018-08-18)
PROC: F08Z1ZZ Dressing Techniques Treatment (ICD-10-PCS; 2018-08-18)
PROC: F08Z2ZZ Grooming/Personal Hygiene Treatment (ICD-10-PCS; 2018-08-18)
DX: J44.1 Chronic obstructive pulmonary disease with (acute) exacerbation (principal); C34.01 Malignant neoplasm of right main bronchus; I24.8 Other forms of acute ischemic heart disease; D63.8 Anemia in other chronic diseases classified elsewhere; E03.9 Hypothyroidism, unspecified; E11.65 Type 2 diabetes mellitus with hyperglycemia; E66.01 Morbid (severe) obesity due to excess calories; E86.9 Volume depletion, unspecified; F03.90 Unspecified dementia, unspecified severity, without behavioral disturbance, psychotic disturbance, mood disturbance, and anxiety; G47.30 Sleep apnea, unspecified; I25.10 Atherosclerotic heart disease of native coronary artery without angina pectoris; I25.2 Old myocardial infarction; I48.0 Paroxysmal atrial fibrillation; I50.9 Heart failure, unspecified; K21.9 Gastro-esophageal reflux disease without esophagitis; M19.90 Unspecified osteoarthritis, unspecified site; T38.0X5A Adverse effect of glucocorticoids and synthetic analogues, initial encounter; Z79.4 Long term (current) use of insulin; Z85.038 Personal history of other malignant neoplasm of large intestine

== ENCOUNTER 2018-08-30 14:39 | Outpatient (CLI) | payer MEDICARE | END 2018-08-30 14:40 | disposition home or self-care (01) | LOC: OPLAB 14:39 ==

== ENCOUNTER 2018-09-05 10:37 | Inpatient (IN) | payer MEDICARE ==
[2018-09-05 10:46] VITALS: BMI 47.2
[2018-09-05] MEDS ORDERED: Albuterol-Ipratrop 3 mg / 0.5 (3 ml) UD IH STA (10:49)
--- NOTE | 2018-09-05 11:03 | ED PDOC ---
Arrival/HPI - General Chief Complaint: Shortness Of Breath Time Seen by Provider: 09/05/18 10:41 Historian: Patient - History of Present Illness Narrative History of Present Illness (Text): 09/05/18 11:00 68 year old female, whose past medical history includes hypothyroidism, anemia, degenerative joint disease, non-small cell lung cancer, adenocarcinoma, colon cancer, and COPD, presents to the emergency department complaining of shortness of breath for the last several days. She was seen by Dr. Fiore in radiation, oncology earlier today and she sent her into the emergency department for further evaluation. Patient has an inoperable lung cancer tumor and is receiving radiation therapy. Patient reports associated wheeze and a chronic bilateral lower extremity edema that is no different from previously. of note, patient was discharged from the emergency department 2 weeks for the same thing. She states she quit smoking 30 years ago. Patient denies fevers, chills, headache, dizziness, chest pain, abdominal pain, nausea, vomiting, diarrhea, back pain, neck pain, or any other complaint. Teacher Dancing: Dr. Feliz Oncologist: Dr. Adames Time/Duration: < week Symptom Onset: Gradual Symptom Course: Unchanged Activities at Onset: Light Context: Home Past Medical History - Provider Review Nursing Documentation Reviewed: Yes - Infectious Disease Hx of Infectious Diseases: None - Cardiac Hx Cardiac Disorders: Yes (Afib) - Pulmonary Hx Chronic Obstructive Pulmonary Disease (COPD): Yes - Neurological Hx Neurological Disorder: No - HEENT Hx HEENT Disorder: Yes (Glasses) Hx Cataracts: Yes Other/Comment: detached retina left eye - Renal Hx Renal Disorder: No - Endocrine/Metabolic Hx Hypothyroidism: Yes - Hematological/Oncological Hx Blood Disorders: Yes (blood transfusion) Hx Anemia: Yes (iron deficiency) Hx Cancer: Yes (Lung, colon) Other/Comment: 09/2017 pt had a colon resection no chemo, r lung non small cell stage III ca takes chemo pill started radiation in 08/01, has completed 12 treatments tuesday through tuesday, needs 36 total radiation treatments - Integumentary Hx Dermatological Disorder: Yes Other/Comment: multiple moles around neck chest, b/l arms multiple skin tears and this dry skin,multiple bruises bruising to abd from "heparin" injections last admission, lle 1.2cm x 0.6cm open wound yellow surrounded by red skin, pt hit a chair about 2 months ago, redness to b/l groin on and off, slight redness ble - Musculoskeletal/Rheumatological Hx Falls: No - Gastrointestinal Hx Gastrointestinal Disorders: Yes (GERD,COLON CA WITH SX A FOOT OF COLON REMOVED) - Genitourinary/Gynecological Hx Genitourinary Disorders: No - Psychiatric Hx Psychophysiologic Disorder: No Hx Substance Use: No - Surgical History Other/Comment: 10/2017- Colon resection for adenocarcinoma. Surg. repair for detached retina both eyes LEFT 2012,Right 2016 - Anesthesia Hx Anesthesia: Yes Hx Anesthesia Reactions: No Hx Malignant Hyperthermia: No - Suicidal Assessment Feels Threatened In Home Enviroment: No Family/Social History - Physician Review Nursing Documentation Reviewed: Yes Family/Social History: No Known Family HX Smoking Status: Former Smoker Hx Alcohol Use: No Hx Substance Use: No Allergies/Home Meds Allergies/Adverse Reactions: Allergies No Known Allergies Allergy (Verified 08/18/18 16:34) Home Medications: Home Meds Medication Instructions Recorded Confirmed Levothyroxine [Synthroid] 125 mcg PO DAILY 10/12/17 08/18/18 Pantoprazole [Protonix EC Tab] 40 mg PO DAILY 10/20/17 08/18/18 Crizotinib [Xalkori] 250 mg PO BID 06/28/18 08/18/18 Fluticasone/Vilanterol [Breo 1 pow IH DAILY 06/28/18 08/18/18 Ellipta 100-25 Mcg INH] Review of Systems - Physician Review All systems were reviewed & negative as marked: Yes - Review of Systems Constitutional: Fatigue. absent: Fevers Respiratory: SOB, Wheezing. absent: Cough Cardiovascular: Edema (chronic bilateral lower extremity edema). absent: Chest Pain, Palpitations, Syncope Gastrointestinal: absent: Abdominal Pain, Diarrhea, Nausea, Vomiting Genitourinary Female: absent: Dysuria, Frequency, Vaginal Bleeding, Vaginal Discharge Musculoskeletal: absent: Back Pain, Neck Pain Skin: absent: Rash Neurological: absent: Headache, Dizziness Physical Exam Vital Signs Reviewed: Yes Vital Signs Temp Pulse Resp BP Pulse Ox 09/05/18 10:46 98.2 F 99 H 22 185/76 H 80 L Temperature: Afebrile Blood Pressure: Hypertensive Pulse: Tachycardic Respiratory Rate: Normal Appearance: Positive for: Well-Appearing, Non-Toxic, Uncomfortable Pain Distress: None Mental Status: Positive for: Alert and Oriented X 3 - Systems Exam Head: Present: Atraumatic, Normocephalic Pupils: Present: PERRL Extroacular Muscles: Present: EOMI Conjunctiva: Present: Normal Mouth: Present: Moist Mucous Membranes Pharnyx: No: ERYTHEMA, EXUDATE, TONSILS ENLARGED Neck: Present: Normal Range of Motion Respiratory/Chest: Present: Respiratory Distress (moderate respiratory distress), Accessory Muscle Use, Wheezes (wheezing throughout), Decreased Breath Sounds, Rhonchi (rhonchi throughout), Tachypneic. No: Rales Cardiovascular: Present: Regular Rate and Rhythm, Normal S1, S2. No: Murmurs Abdomen: No: Tenderness, Distention, Peritoneal Signs, Rebound, Guarding Back: Present: Normal Inspection Upper Extremity: Present: Normal Inspection. No: Cyanosis, Edema Lower Extremity: Present: Edema (3+ bilateral pitting edemea which is no difference than previously) Neurological: Present: GCS=15, CN II-XII Intact, Speech Normal, Motor Func Grossly Intact Skin: Present: Warm, Dry, Normal Color. No: Rashes Psychiatric: Present: Alert, Oriented x 3, Normal Insight, Normal Concentration Medical Decision Making ED Course and Treatment: 09/05/18 11:00 Impression: 68 year old female who presents to the emergency department complaining of shortness of breath. Plan: -- ABG -- EKG -- Labs -- Chest X-ray -- Duoneb -- SOLU-medrol -- Blood Culture -- Reassess and disposition Prior Visits: Notes and results from previous visits were reviewed. Progress Notes: 09/05/18 11:36 Chest X-ray reviewed, by radiologist, shows: IMPRESSION: New right apical infiltrate suspicious for pneumonia. Moderate vascular congestion. 09/05/18 12:35 EKG shows normal sinus rhythm rate approximately [address] or T-wave changes. 09/05/18 13:10 Discussed with , who will place on telemetry and consult with pulmonary and cardiology. - Lab Interpretations I have reviewed the lab results: Yes - RAD Interpretation Radiology Orders: 09/05/18 10:50 CHEST PORTABLE [RAD] Stat - EKG Interpretation Interpreted by ED Physician: Yes Type: 12 lead EKG - Medication Orders Current Medication Orders: Discontinued Medications Albuterol/Ipratropium (Duoneb 3 Mg/0.5 Mg (3 Ml) Ud) 3 ml IH STAT STA Stop: 09/05/18 10:50 Last Admin: 09/05/18 10:59 Dose: 3 ml Methylprednisolone (Solu-Medrol) 125 mg IVP STAT STA Stop: 09/05/18 10:50 - Scribe Statement The provider has reviewed the documentation as recorded by the Laneyibjenaro Amador Provider Scribe Attestation: All medical record entries made by the Scribe were at my direction and personally dictated by me. I have reviewed the chart and agree that the record accurately reflects my personal performance of the history, physical exam, medical decision making, and the department course for this patient. I have also personally directed, reviewed, and agree with the discharge instructions and disposition. Disposition/Present on Arrival - Present on Arrival Any Indicators Present on Arrival: No History of DVT/PE: No History of Uncontrolled Diabetes: No Urinary Catheter: No History of Decub. Ulcer: No History Surgical Site Infection Following: None - Disposition Have Diagnosis and Disposition been Completed?: Yes Diagnosis: COPD (chronic obstructive pulmonary disease), CHF (congestive heart failure), Non-small cell lung cancer (NSCLC), Colon adenocarcinoma, Pneumonia, Hypoxia, Dyspnea, Anemia Disposition: HOSPITALIZED Disposition Time: 13:11 Patient Plan: Admission, Telemetry Condition: FAIR Discharge Instructions (ExitCare): Heart Failure (ED) Forms: [employer] (Ukrainian)
--- NOTE | 2018-09-05 11:18 | RAD ---
Date of service: 09/05/2018 HISTORY: sob COMPARISON: 06/30/2018 FINDINGS: LUNGS: New right apical infiltrate. PLEURA: No significant pleural effusion identified, no pneumothorax apparent. CARDIOVASCULAR: No aortic atherosclerotic calcification present. Moderate cardiomegaly. Moderate vascular congestion OSSEOUS STRUCTURES: No significant abnormalities. VISUALIZED UPPER ABDOMEN: Normal. OTHER FINDINGS: None. IMPRESSION: New right apical infiltrate suspicious for pneumonia. Moderate vascular congestion
[2018-09-05 11:23] LABS: ARTERIAL BLOOD GAS HEMOGLOBIN 8.7 g/dL (11.7-17.4); ARTERIAL BLOOD GAS O2 CAPACITY 12.2 mL/dl (16-24); ARTERIAL BLOOD GAS O2 CONTENT 10.9 ML/dl (15-23); ARTERIAL BLOOD GAS O2 SAT 89.4 % (95-98); ARTERIAL BLOOD GAS PCO2 36 mm/Hg (35-45); ARTERIAL BLOOD GAS PH 7.45 (7.35-7.45); ARTERIAL BLOOD GAS TCO2 26.1 mmol.L (22-28)
[2018-09-05 11:41] LABS: EOS # 0.1 (0.0-0.7); EOS % 1.5 % (1.5-5.0); GRAN # 6.38 (1.4-6.5); GRAN % 88.7 % (50.0-68.0); HEMOGLOBIN 8.9 g/dL (12.0-16.0); LYMPH # 0.4 (1.2-3.4); LYMPH % 5.8 % (22.0-35.0); MEAN CELL VOLUME 78.1 fl (80.0-105.0); MEAN CORPUSCULAR HEMOGLOBIN 23.2 pg (25.0-35.0); MEAN CORPUSCULAR HGB CONC 29.8 g/dl (31.0-37.0); MEAN PLATELET VOLUME 9.4 fl (7.0-11.0); MONO # 0.3 (0.1-0.6); RBC 3.83 10^6/uL (3.5-6.1); RED CELL DISTRIBUTION WIDTH 27.1 % (11.5-14.5); WHITE BLOOD COUNT 7.2 10^3/uL (4.5-11.0)
[2018-09-05 11:53] LABS: INR 1.18; PARTIAL THROMBOPLASTIN TIME 23.5 Seconds (25.1-36.5); PROTHROMBIN TIME 13.6 SECONDS (9.4-12.5)
[2018-09-05 12:07] LABS: B-TYPE NATRIURETIC PEPTIDE 827 pg/mL (0-450); TROPONIN I < 0.01 ng/mL
[2018-09-05 12:12] LABS: ALB/GLOB RATIO 0.8 (1.1-1.8); ALBUMIN 2.5 g/dL (3.0-4.8); ALT/SGPT 65 U/L (7-56); AST/SGOT 43 U/L (14-36); BLOOD UREA NITROGEN 14 mg/dL (7-21); CALCIUM 7.8 mg/dL (8.4-10.5); GFR NON-AFRICAN AMERICAN > 60
[2018-09-05] MEDS ORDERED: Piperacillin/Tazobact 3.375 gm 100 ML IVPB STA (12:16)
[2018-09-05] MEDS: Cefepime IV 2 gm in NS 2 GM/100 ML BAG IVPB SCH ×2 (17:50→21:32)
[2018-09-05] MEDS: Arformoterol 15 mcg/2 ml Inh Sol IH SCH (19:41)
[2018-09-05] MEDS: Budesonide 0.25 mg/2 ml Inhal Susp UD IH SCH (19:41)
[2018-09-05] MEDS: Acetylcysteine 20% Inhal Soln (4ml) INH SCH (19:41)
--- NOTE | 2018-09-05 20:23 | CON ---
DATE: 09/05/2018 PULMONARY CONSULTATION REFERRING PHYSICIAN: Gerard Gibson MD REASON FOR CONSULTATION: Cough, shortness of breath, lung cancer. HISTORY OF PRESENT ILLNESS: This is a 68-year-old female, well known to me from previous admission, has a chronic obstructive lung disease, hypothyroid, anemia, non-small cell lung cancer, history of colon cancer, been on radiation therapy, seen at Radiation Department today with cough, shortness of breath. No nausea, no vomiting, no diarrhea. Does have leg swelling and sent to ER. No hemoptysis or emesis. No hematuria. PAST MEDICAL HISTORY: Chronic obstructive lung disease, history of colon cancer resected in the early last year, has a bik-[id number]-fect lung cancer on radiation therapy, chronic lung disease, hypothyroid, anemia, history of gastroesophageal reflux disease. FAMILY HISTORY: No significant cardiopulmonary disease reported. SOCIAL HISTORY: Former smoker. Denies any alcohol use. ALLERGIES: ALLERGIES ARE NONE KNOWN. MEDICATIONS: Home medication is prednisone, metformin, Protonix, Lopressor, meclizine, Synthroid, Breo, crizotinib 250 twice a day, Lipitor 40 mg daily, aspirin 81 mg daily. REVIEW OF SYSTEMS: No headache. Has some rhinitis, cough, shortness of breath, sputum production. No nausea, no vomiting, no diarrhea. No abdominal pain. Does have leg swelling. PHYSICAL EXAMINATION: GENERAL: Mild distress secondary to cough and shortness of breath. VITAL SIGNS: Temperature is 98, heart rate 72, respiratory rate is 22, blood pressure 126/54, pulse ox 90% on nasal cannula. HEENT: Moist mucous membrane. Crowded airway. Mallampati score is 4. NECK: Supple. No JVD. LUNGS: Have bilateral scattered rhonchi and wheezing heard. ABDOMEN: Examination of abdomen, soft, nontender. No organomegaly. EXTREMITIES: Has edema up to the hip. NEUROLOGIC: Neurologically awake, alert. Follows simple commands. LABORATORY DATA: Shows hemoglobin 8.9, hematocrit 29.9, WBC 7.2, platelet count is 244. INR 1.18. PTT 24. ABG showed pH 7.45, pCO2 of 36, O2 52 that is on nasal cannula. Sodium 132, potassium 4.4, chloride of 97, bicarbonate 30, BUN 14, creatinine 0.7, glucose 294, calcium 7.8, magnesium 1.7, AST 43, ALT 65, alk phos is 136. Troponin less than 0.01. Albumin 2.5. Chest x-ray done in the ER shows new right apical infiltrate suspicious for pneumonia, moderate vascular congestion. IMPRESSION AND PLAN: Healthcare-associated pneumonia, chronic obstructive lung disease, stage III [id number] cancer, history of colon cancer in the past, hypothyroid, gastroesophageal reflux disease, obesity, degenerative joint disease, anemia, paroxysmal atrial fibrillation, history of non-ST elevation myocardial infarction, sleep apnea syndrome, normal left ventricular ejection fraction, heart failure. We will start antibiotics, IV and inhaled bronchodilator, BiPAP while sleeping, diuretics, gastric and deep vein thrombosis prophylaxis. Thank you and we will follow with you. Hussein Feliz MD
--- NOTE | 2018-09-05 20:41 | CP.PCM.HP ---
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 She was recently admitted for a very similiar presentation which she recovered from and was sent to TCU from which she went home. She is currently receiving radiation therapy and states she has 5 sessions left. She recently stopped her lasix and prednisone as well as her metoprolol tartrate which was stopped due to lightheadedness (this was started for episodes of SVT which have no resolved). She states her legs are now less swollen. After her recent discharge she did not have have a chance to follow-up with cardio Dr Perea or pulm Dr Feliz. 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, COPD, CHF, ASCVD, hx of colon cancer with resection stage 2, DE, AFib (now resolved), anemia of chronic disease, low vitamin D, obesity PSHx: colon resection, surgery for detached retina Allergies: NKA SocialHx: former smoker FamHx: both parents from age-related illness Present on Admission - Present on Admission Any Indicators Present on Admission: No Review of Systems - Review of Systems All systems: reviewed and no additional remarkable complaints except (as stated in HPI) Past Patient History - Infectious Disease Hx of Infectious Diseases: None - Past Social History Smoking Status: Former Smoker - CARDIAC Hx Cardiac Disorders: Yes (Afib) - PULMONARY Hx Chronic Obstructive Pulmonary Disease (COPD): Yes - NEUROLOGICAL Hx Neurological Disorder: No - HEENT Hx HEENT Problems: Yes (Glasses) Hx Cataracts: Yes Other/Comment: detached retina left eye - RENAL Hx Chronic Kidney Disease: No - ENDOCRINE/METABOLIC Hx Hypothyroidism: Yes - HEMATOLOGICAL/ONCOLOGICAL Hx Blood Disorders: Yes (blood transfusion) Hx Anemia: Yes (iron deficiency) Hx Cancer: Yes (Lung, colon) Other/Comment: 09/2017 pt had a colon resection no chemo, r lung non small cell stage III ca takes chemo pill started radiation in 08/01, has completed 12 treatments tuesday through tuesday, needs 36 total radiation treatments - INTEGUMENTARY Hx Dermatological Problems: Yes Other/Comment: multiple moles around neck chest, b/l arms multiple skin tears and this dry skin,multiple bruises bruising to abd from "heparin" injections last admission, lle 1.2cm x 0.6cm open wound yellow surrounded by red skin, pt hit a chair about 2 months ago, redness to b/l groin on and off, slight redness ble - MUSCULOSKELETAL/RHEUMATOLOGICAL Hx Falls: No - GASTROINTESTINAL Hx Gastrointestinal Disorders: Yes (GERD,COLON CA WITH SX A FOOT OF COLON R EMOVED) - GENITOURINARY/GYNECOLOGICAL Hx Genitourinary Disorders: No - PSYCHIATRIC Hx Psychophysiologic Disorder: No Hx Substance Use: No - SURGICAL HISTORY Other/Comment: 10/2017- Colon resection for adenocarcinoma. Surg. repair for detached retina both eyes LEFT 2012,Right 2016 - ANESTHESIA Hx Anesthesia: Yes Hx Anesthesia Reactions: No Hx Malignant Hyperthermia: No Meds Allergies/Adverse Reactions: Allergies Allergy/AdvReac Type Severity Reaction Status Date / Time No Known Allergies Allergy Verified 08/18/18 16:34 Physical Exam - Constitutional Appears: Well, Non-toxic, No Acute Distress - Head Exam Head Exam: ATRAUMATIC, NORMAL INSPECTION - Eye Exam Eye Exam: EOMI, Normal appearance, PERRL. absent: Scleral icterus - ENT Exam ENT Exam: Mucous Membranes Moist - Respiratory Exam Respiratory Exam: Wheezes, NORMAL BREATHING PATTERN - Cardiovascular Exam Cardiovascular Exam: Tachycardia, REGULAR RHYTHM, +S1, +S2. absent: JVD - GI/Abdominal Exam GI & Abdominal Exam: Normal Bowel Sounds, Soft. absent: Tenderness - Extremities Exam Extremities exam: Positive for: normal capillary refill, pedal edema, pedal pulses present - Neurological Exam Neurological exam: Alert, Oriented x3 - Psychiatric Exam Psychiatric exam: Normal Affect - Skin Skin Exam: Dry, Normal Color, Warm Results - Vital Signs Recent Vital Signs: Last Vital Signs Temp 98.2 F 09/05/18 10:46 Pulse 80 09/05/18 19:50 Resp 20 09/05/18 17:41 BP 130/60 09/05/18 17:49 Pulse Ox 89 L 09/05/18 17:41 - Labs Result Diagrams: 09/05/18 11:30 09/05/18 11:30 Labs: Laboratory Results - last 24 hr 09/05/18 09/05/18 09/05/18 11:15 11:30 11:30 WBC 7.2 D RBC 3.83 Hgb 8.9 L Hct 29.9 L MCV 78.1 L MCH 23.2 L MCHC 29.8 L RDW 27.1 H Plt Count 244 MPV 9.4 Gran % 88.7 H Lymph % (Auto) 5.8 L [place] % (Auto) 4.0 Eos % (Auto) 1.5 Baso % (Auto) 0.0 Gran # 6.38 Lymph # (Auto) 0.4 L [place] # (Auto) 0.3 Eos # (Auto) 0.1 Baso # (Auto) 0.00 PT 13.6 H INR 1.18 APTT 23.5 L pCO2 36 pO2 52.0 L HCO3 25.0 ABG pH 7.45 ABG Total CO2 26.1 ABG O2 Saturation 89.4 L ABG O2 Content 10.9 L ABG Base Excess 1.1 ABG Hemoglobin 8.7 L ABG Carboxyhemoglobin 1.0 POC ABG HHb (Measured) 10.5 H ABG Methemoglobin 0.0 ABG O2 Capacity 12.2 L Hgb O2 Saturation 88.5 L FiO2 36.0 Sodium Potassium Chloride Carbon Dioxide Anion Gap BUN Creatinine Est GFR ( Amer) Est GFR (Non-Af Amer) Random Glucose Calcium Magnesium Total Bilirubin AST ALT Alkaline Phosphatase Lactate Dehydrogenase Total Creatine Kinase Troponin I NT-Pro-B Natriuret Pep Total Protein Albumin Globulin Albumin/Globulin Ratio 09/05/18 11:30 WBC RBC Hgb Hct MCV MCH MCHC RDW Plt Count MPV Gran % Lymph % (Auto) [place] % (Auto) Eos % (Auto) Baso % (Auto) Gran # Lymph # (Auto) [place] # (Auto) Eos # (Auto) Baso # (Auto) PT INR APTT pCO2 pO2 HCO3 ABG pH ABG Total CO2 ABG O2 Saturation ABG O2 Content ABG Base Excess ABG Hemoglobin ABG Carboxyhemoglobin POC ABG HHb (Measured) ABG Methemoglobin ABG O2 Capacity Hgb O2 Saturation FiO2 Sodium 132 Potassium 4.4 Chloride 97 L Carbon Dioxide 30 Anion Gap 10 BUN 14 Creatinine 0.7 Est GFR ( Amer) > 60 Est GFR (Non-Af Amer) > 60 Random Glucose 294 H Calcium 7.8 L Magnesium 1.7 Total Bilirubin 0.4 AST 43 H ALT 65 H Alkaline Phosphatase 136 H D Lactate Dehydrogenase 1670 H Total Creatine Kinase 46 Troponin I < 0.01 NT-Pro-B Natriuret Pep 827 H Total Protein 5.6 L Albumin 2.5 L Globulin 3.1 Albumin/Globulin Ratio 0.8 L Assessment & Plan - Assessment and Plan (Free Text) Plan: Mrs White is a 68 year old female with a PMHx of unresectable stage III NSCLC with an ALK mutation, COPD, CHF, ASCVD, hx of colon cancer with resection stage 2, DE, AFib (now resolved), anemia of chronic disease, low vitamin D, obesity who present for shortness of breath and dry cough: #unresectable stage IIIb non-small cell carcinoma of the lung, currently on radiation #sleep apnea syndrome #morbid obesity #right-sided heart failure -currently on radiation (with 5 sessions left) to open up the passage of the right mainstem -to treat her shortness of breath we'll give her brovana 15mcg ih q12h, b udesonide 0.25mg ih q12h, duoneb q4h prn, acetylcysteine 3ml ih bid -lasix 20mg ivp q8h, solumedrol 40mg ivp q8h -continue home meds lipitor 40mg po qd, synthroid 125mcg po qd, metoprolol tartrate 25mg po bid (on hold), pregabalin 25mg po bid (on hold), aspirin 81mg po qd, crizotinib 250mg po bid (to treat her lung cancer) -empiric abx coverage wth cefepime 2g ivp q8h (started 09/05), f/u blood cx -insulin regular 8units iv q8h -ppx with lovenox 40mg sc qd and protonix 40mg po qd -cpap while sleeping -head of bed at 30 degrees -pulmonary consult, Dr Feliz and cardio consult, Dr ePrea Seen and discussed with Dr Adames
[2018-09-05] MEDS ORDERED: Influenza Vaccine 60 mcg/0.5 mL SYR (4YR UP) IM ONE (21:14)
[2018-09-05] MEDS ORDERED: Dextrose 50% SYRINGE Inj (50 ml) IV PRN (21:27)
[2018-09-05] MEDS: MethylPREDNISolone 40 mg Vial IVP SCH (21:30)
[2018-09-05] MEDS: Insulin Regular 1 UNITS/0.01 ML ML IV SCH (21:31)
[2018-09-05] MEDS: Albuterol-Ipratrop 3 mg / 0.5 (3 ml) UD IH PRN (21:32)
--- NOTE | 2018-09-05 23:08 | CARD ---
APPROVED REPORT Date of service: 09/05/2018 EKG Measurement Heart [id number] <Conclusion> Sinus rhythm Baseline artifact Minor NDSTT abnormalities Otherwise normal ECG
[2018-09-06] MEDS: Insulin Regular 1 UNITS/0.01 ML ML IV SCH ×3 (05:19→21:25)
[2018-09-06] MEDS: MethylPREDNISolone 40 mg Vial IVP SCH ×3 (05:19→21:25)
[2018-09-06] MEDS: Cefepime IV 2 gm in NS 2 GM/100 ML BAG IVPB SCH ×3 (05:19→21:27)
[2018-09-06] MEDS: Budesonide 0.25 mg/2 ml Inhal Susp UD IH SCH ×2 (07:21→20:49)
[2018-09-06] MEDS: Arformoterol 15 mcg/2 ml Inh Sol IH SCH ×2 (07:21→20:49)
[2018-09-06] MEDS: Acetylcysteine 20% Inhal Soln (4ml) INH SCH ×2 (07:21→20:48)
[2018-09-06] MEDS: Albuterol-Ipratrop 3 mg / 0.5 (3 ml) UD IH PRN (07:22)
[2018-09-06] MEDS: Levothyroxine 125 MCG TAB PO SCH (09:24)
[2018-09-06] MEDS: Enoxaparin 40 mg Syringe SC SCH (09:25)
[2018-09-06] MEDS: CRIZOTINIB 250 MG PO SCH ×2 (09:25→18:17)
[2018-09-06] MEDS: Pantoprazole 40 mg EC Tab PO SCH (09:26)
--- NOTE | 2018-09-06 14:19 | PN ---
DATE: 09/06/2018 PULMONARY PROGRESS NOTE REFERRING PHYSICIAN: Gerard Gibson MD SUBJECTIVE: The patient is sitting in arm chair in room, no acute distress. Reports feeling better today, still has cough and shortness of breath. No headache, rhinitis, chest pain, abdominal pain, nausea, vomiting, diarrhea, leg pain reported. The patient does have leg swelling. Reports having had radiation therapy this morning. OBJECTIVE: VITAL SIGNS: Blood pressure 133/74, pulse 84, temperature 97.8, and oxygen saturation 91%. GENERAL: No acute distress. HEENT: Moist mucous membranes. Mallampati score 4. Crowded airway. NECK: Supple. No JVD. LUNGS: Scattered rhonchi bilaterally, wheezing. ABDOMEN: Soft, nontender. No distension. No organomegaly. EXTREMITIES: Bilateral lower extremity edema. NEUROLOGIC: Awake, alert, verbal, follows commands. MEDICATIONS: Reviewed. Mucomyst 3 mL inhalation twice a day, Duoneb 3 mL inhalation every 4 hours p.r.n., Brovana 15 mcg every 12 hours, aspirin 81 mg daily, Lipitor 40 mg daily, Pulmicort 0.25 mg every 12 hours, cefepime 2 g every 8 hours, dextrose 5% in water 1000 mL p.r.n., Lovenox 40 mg subcu daily, Lasix 40 mg twice a day, Humulin R 8 units every 8 hours, Synthroid 125 mcg daily, Solu-Medrol 40 mg every 8 hours, metoprolol tartrate 25 mg twice a day, Protonix 40 mg daily, and Lyrica 25 mg twice a day. LABORATORY DATA: Reviewed. POC glucose 303, blood culture is preliminary, no growth after 24 hours. EKG shows sinus rhythm. IMPRESSION AND PLAN: Healthcare-associated pneumonia, chronic obstructive lung disease, stage III non-small cell cancer, history of colon cancer in the past, hypothyroidism, gastroesophageal reflux disease, obesity, degenerative joint disease, anemia, history of paroxysmal atrial fibrillation, currently in sinus rhythm, history of non-ST elevation myocardial infarction, sleep apnea syndrome, diastolic dysfunction with heart failure. Echocardiogram from 06/29/2018 reviewed showed ejection fraction greater than 50%, right ventricular systolic pressure 59. The patient with moderate pulmonary hypertension. Continue antibiotic therapy, inhaled bronchodilators, bilateral positive airway pressure at bedtime, sleep apnea precaution, head of bed elevated 45 degrees. Need diuretics, gastric prophylaxis, deep venous thrombosis prophylaxis. We will order procalcitonin level to be done to evaluate healthcare-associated pneumonia. We will order labs to be done in the morning. The patient was seen and examined with Dr. Feliz. Discussed assessment and plan as described above. Thank you for this consult. We will follow with you. Juan Richardson APN Hussein Feliz MD DAVID
--- NOTE | 2018-09-06 19:47 | CON ---
DATE: 09/06/2018 REQUESTING PHYSICIAN: Gerard Gibson MD REASON FOR CONSULTATION: Cough, dyspnea, and worsening edema. HISTORY OF PRESENT ILLNESS: This is a 68-year-old woman known to us with a history of stage III lung cancer and paroxysmal atrial fibrillation who had been admitted several weeks ago with decompensated congestive heart failure. She is now admitted with worsening dyspnea and cough for several days. She has just been discharged home from Transitional Care Unit. She is undergoing radiation therapy for stage III [id number] lung cancer. She also has a history of colon resection for colon cancer as well as COPD, paroxysmal atrial fibrillation, and prior myocardial infarction. PAST MEDICAL HISTORY: Notable for the problems as mentioned above. ALLERGIES: NONE. FAMILY HISTORY: Both parents from age-related illness. SOCIAL HISTORY: She is a former smoker. CURRENT MEDICATIONS: Includes; Mucomyst, aspirin, Brovana, DuoNeb inhaler, Crizotinib 250 mg b.i.d., Lasix, Lipitor, metoprolol 25 mg b.i.d., Lovenox, Lyrica, Maxipime, Protonix, Pulmicort, Solu-Medrol, and Synthroid. REVIEW OF SYSTEMS: Ten-point review of systems is otherwise unremarkable. She has had worsening leg edema recently. PHYSICAL EXAMINATION: GENERAL: She is a middle-aged women who appears comfortable at rest. VITAL SIGNS: Blood pressure is 132/74, pulse of 84 and sinus, respirations are 16, and she is afebrile. HEENT: Bilateral rhonchi noted with scattered expiratory wheezing. HEART: PMI displaced laterally with systolic murmur at the lower left sternal border. ABDOMEN: Soft, obese, and nontender with normoactive bowel sounds. EXTREMITIES: 2-3+ leg edema is present. SKIN: Warm and dry. PSYCHIATRIC: Normal mood and affect. NEUROLOGIC: Alert and oriented x3. No gross motor or sensory deficits appreciated. DIAGNOSTIC DATA: White count 7.2, hemoglobin and hematocrit of 8.9 and 29.9 with a platelet count of 244,000. PT and PTT normal. Arterial blood gas; 7.45, pCO2 of 36, and pO2 of 52. Potassium 4.4, BUN and creatinine 14 and 0.7, and glucose 294. BNP 827. Troponin is negative. Chest x-ray reveals enlarged cardiac silhouette with moderate congestive changes in a right apical infiltrate. Electrocardiogram reveals sinus rhythm with nonspecific ST-T abnormalities. IMPRESSION: 1. Worsening dyspnea and cough with new right apical infiltrate suggestive of pneumonia. 2. Decompensated congestive heart failure acute on chronic combined systolic and diastolic. 3. Advanced lung cancer undergoing radiation therapy. 4. Rest of the problems as noted. RECOMMENDATIONS: Admission to telemetry is advised. IV antibiotics have been initiated. IV Lasix will be resumed. Serial monitoring for renal functioning and potassium will be planned. Prior records will be reviewed again. Further recommendations will be based upon clinical course and result and response to the above interventions. Thank you for this consultation. We will be happy to follow along as needed. Vidal Fong MD MTDD
--- NOTE | 2018-09-07 00:28 | PN ---
DATE: 09/06/2018 ONCOLOGY PROGRESS NOTE SUBJECTIVE: The patient is sitting up in the chair, out of bed, without any acute distress, reports feeling a little bit better, was tremulous yesterday, appears to be less tremulous today, still has cough and shortness of breath and gets short of breath and tired easily when she tries to get up and walk to the commode or to the bathroom. No history of headaches, rhinitis, chest pain, abdominal pain, nausea, vomiting, diarrhea, or leg pain. The patient has leg swelling noted, which is not as bad as before, but significantly there, and the patient just gone for radiation today to the right mainstem and right hilar area. She has 4 more radiation treatments left. OBJECTIVE: VITAL SIGNS: Stable. Blood pressure is 133/74, pulse is 84, T-max is 98.4, O2 sat is 97%. This is on nasal cannula. When she goes off the oxygen, she desaturates and goes down to 90%. GENERAL: The patient is in no acute distress. HEENT: Head is normocephalic, atraumatic. The patient's Mallampati score is 4. Crowded airways are noted. NECK: Supple. There is no adenopathy. No jugular venous distention noted. LUNGS: Reveal bilateral scattered rhonchi with wheezing. ABDOMEN: Soft, nontender, mildly distended. No organomegaly is noted. EXTREMITIES: Reveal bilateral lower extremity edema. NEUROLOGIC: Reveals higher functions to be normal. No focal deficits are noted. MEDICATIONS: The patient's medications were reviewed. She is on Mucomyst 3 mL inhaled twice a day, DuoNeb 3 mL inhaled every 4 hours p.r.n., Brovana 15 mcg every 12 hours, aspirin 81 mg daily, Lipitor 40 mg daily, Pulmicort 0.25 mg every 12 hours, cefepime 2 g every 8 hours. She is on dextrose and D50 p.r.n. for drop in blood sugar, Lasix 40 b.i.d. She is on Humulin R 8 units every 8 hours. She is on Synthroid 125 mcg daily. She is on Solu-Medrol 40 mg IV every 8 hours. She is on metoprolol tartrate 25 mg b.i.d., Protonix 40 mg daily, and Lyrica 25 mg b.i.d. LABORATORY DATA: Reviewed. The patient's blood sugar is 303. Blood cultures so far are negative after 24 hours. EKG shows sinus rhythm without any SVT. ASSESSMENT NOTES: The patient's chest x-ray showed infiltrate in the right upper lobe, probably radiation-induced changes or superimposed healthcare-associated pneumonia; chronic obstructive lung disease; obstructive atelectasis; narrowing of the right middle lobe related to huge mass in the right upper lobe abating against the right hilum, secondary to stage III adenocarcinoma of the lung; history of hypothyroidism; history of gastroesophageal reflux disease; obesity; degenerative joint disease; anemia; history of paroxysmal atrial fibrillation, currently in sinus rhythm; history of non ST elevation myocardial infarction in the past, thought to be actually demand ischemia, which improved with the oxygenation and building up of her blood by getting the transfusion. PLAN: We will continue current antibiotic therapy, inhalers, chest physiotherapy, finish her radiation therapy, and then make plans for further treatment. Try to look up for interactions between Crizotinib and radiation; I could not find any. Still waiting for results from the [employer] assay for next generation sequencing from Dr. Hobbs's office. Meantime, the infiltrate in the right upper lobe could be pneumonic process, could be acute radiation injury as well as the patient is almost near-completing treatments. The patient is on antibiotics and steroids to cover all basis. Hopefully, the patient's condition will continue to improve and we can make further discharge plans. Gabby Adames MD
[2018-09-07] MEDS: Cefepime IV 2 gm in NS 2 GM/100 ML BAG IVPB SCH (05:15)
[2018-09-07] MEDS: MethylPREDNISolone 40 mg Vial IVP SCH ×3 (05:15→21:41)
[2018-09-07] MEDS: Insulin Regular 1 UNITS/0.01 ML ML IV SCH ×3 (05:16→21:44)
[2018-09-07 06:52] LABS: BASO # 0.01 K/mm3 (0.0-2.0); BASO % 0.1 % (0.0-3.0); EOS % 0.3 % (1.5-5.0); GRAN # 7.33 (1.4-6.5); GRAN % 91.6 % (50.0-68.0); HEMOGLOBIN 8.7 g/dL (12.0-16.0); LYMPH # 0.3 (1.2-3.4); MEAN CELL VOLUME 77.5 fl (80.0-105.0); MEAN CORPUSCULAR HEMOGLOBIN 23.3 pg (25.0-35.0); MEAN PLATELET VOLUME 9.8 fl (7.0-11.0); MONO # 0.3 (0.1-0.6); PLATELET COUNT 303 10^3/uL (120.0-450.0); RBC 3.74 10^6/uL (3.5-6.1); RED CELL DISTRIBUTION WIDTH 27.6 % (11.5-14.5)
[2018-09-07 06:55] LABS: ALB/GLOB RATIO 0.8 (1.1-1.8); ALBUMIN 2.5 g/dL (3.0-4.8); ALT/SGPT 65 U/L (7-56); AST/SGOT 33 U/L (14-36); BLOOD UREA NITROGEN 24 mg/dL (7-21); CALCIUM 8.3 mg/dL (8.4-10.5); GFR NON-AFRICAN AMERICAN > 60
[2018-09-07 08:00] LABS: LYMPHOCYTE 3 % (22.0-35.0); MONOCYTE 3 % (1.0-6.0); NEUTROPHIL 94 % (50.0-70.0); NUCLEATED RED BLOOD CELL 1 %
[2018-09-07 08:01] LABS: LARGE PLATELETS PRESENT; MICROCYTOSIS 1+; PLATELET ESTIMATE n (NORMAL)
[2018-09-07] MEDS: Acetylcysteine 20% Inhal Soln (4ml) INH SCH ×2 (08:03→20:30)
[2018-09-07] MEDS: Budesonide 0.25 mg/2 ml Inhal Susp UD IH SCH ×2 (08:03→20:30)
[2018-09-07] MEDS: Arformoterol 15 mcg/2 ml Inh Sol IH SCH ×2 (08:03→20:30)
[2018-09-07] MEDS: CRIZOTINIB 250 MG PO SCH ×2 (09:46→18:46)
[2018-09-07] MEDS: Pantoprazole 40 mg EC Tab PO SCH (09:47)
[2018-09-07] MEDS: Enoxaparin 40 mg Syringe SC SCH (09:47)
[2018-09-07] MEDS: Levothyroxine 125 MCG TAB PO SCH (09:49)
--- NOTE | 2018-09-07 10:37 | CP.PCM.PN ---
Subjective - Date & Time of Evaluation Date of Evaluation: 09/07/18 Time of Evaluation: 10:30 - Subjective Subjective: Ms White is known to our department. She has a locally advanced lung cancer. She is currently on radiation therapy. We saw her recently on Tuesday, and she was reporting worsening shortness of breath despite being restarted on her lasix on Tuesday. She had increased pedal edema. Her CBCT prior to her radiation also suggested increased pulmonary congestion. As such, we held her radiation on Tuesday, and sent her to the emergency room after discussing this with Dr Adames. Since her admission, the patient reports feeling a little better. Since yesterday, she has resumed her radiation. She has three more treatments after today. The antibiotics, disuretics and bipap appears to be helping her. It would seem that every time her diuretics are discontinued, she has had reaccumulating of the fluid and a readmission to the hospital. We will continue to watch her closely, but in the interim, will continue her treatment if she remains stable. Objective - Vital Signs/Intake and Output Vital Signs (last 24 hours): Temp Pulse Resp BP Pulse Ox 98.6 F 75 20 143/70 94 L 09/07/18 06:00 09/07/18 06:00 09/07/18 06:00 09/07/18 09:49 09/06/18 23:04 Intake and Output: 09/07/18 09/07/18 06:59 18:59 Intake Total 200 Balance 200 - Medications Medications: Current Medications Acetylcysteine (Acetylcysteine 20%) 3 ml INH BIDRESP [facility] Last Admin: 09/07/18 08:03 Dose: 3 ml Albuterol/Ipratropium (Duoneb 3 Mg/0.5 Mg (3 Ml) Ud) 3 ml IH [id number] PRN PRN Reason: Shortness of Breath Last Admin: 09/06/18 07:22 Dose: 3 ml Arformoterol Tartrate (Brovana) 15 mcg IH [id number] [facility] Last Admin: 09/07/18 08:03 Dose: 15 mcg Aspirin (Aspirin Chewable) 81 mg PO DAILY [facility] Last Admin: 09/07/18 09:47 Dose: 81 mg Atorvastatin Calcium (Lipitor) 40 mg PO DAILY [facility] Last Admin: 09/07/18 09:47 Dose: 40 mg Budesonide (Pulmicort Respules) 0.25 mg IH [id number] [facility] Last Admin: 09/07/18 08:03 Dose: 0.25 mg Dextrose (Dextrose 50% Inj) 0 ml IV STAT PRN; Protocol PRN Reason: Hypoglycemia Protocol Enoxaparin Sodium (Lovenox) 40 mg SC DAILY [facility]; Protocol Last Admin: 09/07/18 09:47 Dose: 40 mg Furosemide (Lasix) 40 mg IVP BID [facility] Last Admin: 09/07/18 09:49 Dose: 40 mg Home Med (Home Med) 1 unit PO BID [facility] Last Admin: 09/07/18 09:46 Dose: 1 unit Cefepime HCl (Maxipime 2gm) 2 gm in 100 mls @ 100 mls/hr IVPB Q8 [facility]; Protocol Stop: 09/10/18 17:46 Last Admin: 09/07/18 05:15 Dose: 100 mls/hr Dextrose (Dextrose 5% In Water 1000 Ml) 1,000 mls @ 0 mls/hr IV .Q0M PRN; Protocol PRN Reason: Hypoglycemia Protocol Insulin Human Regular (Humulin R) 8 units IV Q8 [facility] Last Admin: 09/07/18 05:16 Dose: 8 units Levothyroxine Sodium (Synthroid) 125 mcg PO DAILY [facility] Last Admin: 09/07/18 09:49 Dose: 125 mcg Methylprednisolone (Solu-Medrol) 40 mg IVP Q8 [facility] Last Admin: 09/07/18 05:15 Dose: 40 mg Metoprolol Tartrate (Lopressor) 25 mg PO BID [facility] Last Admin: 09/05/18 18:03 Dose: Not Given Pantoprazole Sodium (Protonix Ec Tab) 40 mg PO DAILY [facility] Last Admin: 09/07/18 09:47 Dose: 40 mg Pregabalin (Lyrica) 25 mg PO BID [facility] Last Admin: 09/05/18 18:03 Dose: Not Given - Labs Labs: 09/07/18 06:10 09/07/18 06:10 PT 13.6 SECONDS (9.4-12.5) H 09/05/18 11:30 INR 1.18 09/05/18 11:30 APTT 23.5 Seconds (25.1-36.5) L 09/05/18 11:30
--- NOTE | 2018-09-07 11:34 | CP.PCM.PCO ---
Physician Communication Note - Physician Communication Note Physician Communication Note: PT cardiopulmonary eval, continue radiation, lasix, solumedrol, antibotics
[2018-09-07 11:51] LABS: IRON 17 ug/dL (45-180)
[2018-09-07 12:01] LABS: % IRON SATURATION 8 % (20-55); TOTAL IRON BINDING CAPACITY 222 ug/dL (265-497)
[2018-09-07 12:11] LABS: FREE T4 1.35 ng/dL (0.78-2.19)
--- NOTE | 2018-09-07 12:35 | PN ---
DATE: 09/07/2018 PULMONARY PROGRESS NOTE REFERRING PHYSICIAN: Gerard Gibson MD SUBJECTIVE: The patient is sitting in chair in room. Reports having some shortness of breath and sputum production this morning. No headache, rhinitis, chest pain, abdominal pain, nausea, vomiting, diarrhea, leg pain or leg swelling reported. PHYSICAL EXAMINATION: GENERAL: No acute distress. VITAL SIGNS: Blood pressure 143/70, pulse 75, temperature 98.6. HEENT: Moist mucous membranes. Mallampati score of 4. Crowded airways. NECK: Supple. No JVD. LUNGS: Scattered rhonchi bilaterally. Some wheezing. ABDOMEN: Soft, nontender. No distention. No organomegaly. EXTREMITIES: Bilateral lower extremity edema. NEUROLOGIC: Awake, alert and verbal. Follows commands. MEDICATIONS: Reviewed. Mucomyst 3 mL inhalation twice a day, Duoneb 3 mL inhalation every 4 hours p.r.n., Brovana 15 mcg every 12 hours, aspirin 81 mg daily, Lipitor 40 mg daily, Pulmicort 0.25 mg inhalation every 12 hours, cefepime 2 g every 8 hours, Lovenox 40 mg subcu daily, Lasix 40 mg twice a day, Humulin R 8 units every 8 hours, Synthroid 125 mcg daily, Solu-Medrol 40 mg every 8 hours, Lopressor 25 mg twice a day, Protonix 40 mg daily, and Lyrica 25 mg twice a day. LABORATORY DATA: Reviewed. WBC 8, RBC 3.74, hemoglobin 8.7, hematocrit 29, and platelets 303. Sodium 135, potassium 4, chloride 98, carbon dioxide 34, anion gap 8, BUN 24, creatinine 0.8, GFR greater than 60. POC glucose 251, random glucose is 271, calcium 8.3, phosphorus 3.6, magnesium 1.9, total bilirubin 0.3. AST 33, ALT 65, alkaline phosphatase 133, total protein 5.5, albumin 2.5, globulin 3.2, and albumin-globulin ratio 0.8. Procalcitonin is 0.06. Blood cultures; preliminary no growth after 24 hours. IMPRESSION AND PLAN: Procalcitonin levels are negative indicating that this is not pneumonia, maybe atelectasis, mucous plugging, possible acute bronchitis, chronic lung disease. The patient has stage III non-small cell cancer, history of colon cancer in the past, hypothyroidism, gastroesophageal reflux disease, obesity, degenerative joint disease, anemia, history of paroxysmal atrial fibrillation, history of non-ST elevation myocardial infarction, sleep apnea syndrome, diastolic dysfunction with heart failure, moderate pulmonary hypertension. We will decrease cefepime from 2 g to 1 g every 24 hours, will add compression stockings to bilateral lower extremities, continue use of bronchodilators, bilateral positive airway pressure use at bedtime, sleep apnea precautions, head of bed elevated to 45 degrees, continue diuretics, gastric prophylaxis, deep venous thrombosis prophylaxis. The patient was seen and examined with Dr. Feliz. Discussed assessment and plan as described above. Thank you for this consult. We will follow with you. Juan Richardson APN Hussein Feliz MD
--- NOTE | 2018-09-07 13:13 | CP.PCM.PN ---
Subjective - Date & Time of Evaluation Date of Evaluation: 09/07/18 Time of Evaluation: 13:04 - Subjective Subjective: PGY-2 heme/onc progress note for Dr Adames Patient was seen post-radiation (3 more treatments left). Stated she tolerated radiation well. Denied n/v, d/c, fevers, sob, cp. Stated breathing had improved since admission. Still has cough. Still with dyspnea on exertion. Objective - Vital Signs/Intake and Output Vital Signs (last 24 hours): Temp Pulse Resp BP Pulse Ox 98.2 F 86 20 112/67 94 L 09/07/18 12:00 09/07/18 12:00 09/07/18 12:00 09/07/18 12:00 09/06/18 23:04 Intake and Output: 09/07/18 09/07/18 06:59 18:59 Intake Total 200 Balance 200 - Medications Medications: Current Medications Acetylcysteine (Acetylcysteine 20%) 3 ml INH BIDRESP [facility] Last Admin: 09/07/18 08:03 Dose: 3 ml Albuterol/Ipratropium (Duoneb 3 Mg/0.5 Mg (3 Ml) Ud) 3 ml IH [id number] PRN PRN Reason: Shortness of Breath Last Admin: 09/06/18 07:22 Dose: 3 ml Arformoterol Tartrate (Brovana) 15 mcg IH [id number] [facility] Last Admin: 09/07/18 08:03 Dose: 15 mcg Aspirin (Aspirin Chewable) 81 mg PO DAILY [facility] Last Admin: 09/07/18 09:47 Dose: 81 mg Atorvastatin Calcium (Lipitor) 40 mg PO DAILY [facility] Last Admin: 09/07/18 09:47 Dose: 40 mg Budesonide (Pulmicort Respules) 0.25 mg IH [id number] [facility] Last Admin: 09/07/18 08:03 Dose: 0.25 mg Dextrose (Dextrose 50% Inj) 0 ml IV STAT PRN; Protocol PRN Reason: Hypoglycemia Protocol Enoxaparin Sodium (Lovenox) 40 mg SC DAILY [facility]; Protocol Last Admin: 09/07/18 09:47 Dose: 40 mg Furosemide (Lasix) 40 mg IVP BID [facility] Last Admin: 09/07/18 09:49 Dose: 40 mg Home Med (Home Med) 1 unit PO BID [facility] Last Admin: 09/07/18 09:46 Dose: 1 unit Dextrose (Dextrose 5% In Water 1000 Ml) 1,000 mls @ 0 mls/hr IV .Q0M PRN; Protocol PRN Reason: Hypoglycemia Protocol Cefepime HCl (Maxipime 1gm) 1 gm in 100 mls @ 100 mls/hr IVPB Q24H [facility]; Protocol Insulin Human Regular (Humulin R) 8 units IV Q8 [facility] Last Admin: 09/07/18 05:16 Dose: 8 units Levothyroxine Sodium (Synthroid) 125 mcg PO DAILY [facility] Last Admin: 09/07/18 09:49 Dose: 125 mcg Methylprednisolone (Solu-Medrol) 40 mg IVP Q8 [facility] Last Admin: 09/07/18 05:15 Dose: 40 mg Metoprolol Tartrate (Lopressor) 25 mg PO BID [facility] Last Admin: 09/05/18 18:03 Dose: Not Given Pantoprazole Sodium (Protonix Ec Tab) 40 mg PO DAILY [facility] Last Admin: 09/07/18 09:47 Dose: 40 mg Pregabalin (Lyrica) 25 mg PO BID [facility] Last Admin: 09/05/18 18:03 Dose: Not Given - Labs Labs: 09/07/18 06:10 09/07/18 06:10 PT 13.6 SECONDS (9.4-12.5) H 09/05/18 11:30 INR 1.18 09/05/18 11:30 APTT 23.5 Seconds (25.1-36.5) L 09/05/18 11:30 - Additional Findings Additional findings: - Constitutional Appears: Well, Non-toxic, No Acute Distress - Head Exam Head Exam: ATRAUMATIC, NORMAL INSPECTION - Eye Exam Eye Exam: EOMI, Normal appearance, PERRL. absent: Scleral icterus - ENT Exam ENT Exam: Mucous Membranes Moist - Respiratory Exam Respiratory Exam: Wheezes, NORMAL BREATHING PATTERN - Cardiovascular Exam Cardiovascular Exam: Tachycardia, REGULAR RHYTHM, +S1, +S2. absent: JVD - GI/Abdominal Exam GI & Abdominal Exam: Normal Bowel Sounds, Soft. absent: Tenderness - Extremities Exam Extremities exam: Positive for: normal capillary refill, pedal edema, pedal pulses present - Neurological Exam Neurological exam: Alert, Oriented x3 - Psychiatric Exam Psychiatric exam: Normal Affect - Skin Skin Exam: Dry, Normal Color, Warm Assessment and Plan - Assessment and Plan (Free Text) Plan: Mrs White is a 68 year old female with a PMHx of unresectable stage III NSCLC with an ALK mutation, COPD, CHF, ASCVD, hx of colon cancer with resection stage 2, [place], AFib (now resolved), anemia of chronic disease, low vitamin D, obesity who present for shortness of breath and dry cough: #Right Upper Lobe Infiltrate 2/2 Radiation Induced or Superimposed HCAP #unresectable stage IIIb non-small cell carcinoma of the lung, currently on radiation #Iron Deficiency Anemia #sleep apnea syndrome #morbid obesity #right-sided heart failure #Hx of NSTEMI -currently on radiation (with 3 sessions left) to open up the passage of the right mainstem; still waiting for results from [employer] assay for next generation sequencing from Dr Hobbs's office -to treat her shortness of breath we'll give her brovana 15mcg ih q12h, budesoni de 0.25mg ih q12h, duoneb q4h prn, acetylcysteine 3ml ih bid, lasix 40mg ivp bid, solumedrol 40mg ivp q8h -continue home meds lipitor 40mg po qd, synthroid 125mcg po qd, metoprolol tartrate 25mg po bid (on hold), pregabalin 25mg po bid (on hold), aspirin 81mg po qd, crizotinib 250mg po bid (to treat her lung cancer) -empiric abx coverage wth cefepime 2g ivp q8h (started 09/05), f/u blood cx -insulin regular 8units iv q8h -ppx with lovenox 40mg sc qd and protonix 40mg po qd -cpap while sleeping -head of bed at 30 degrees -iron 17, tibc 222, %sat 8, f/u ferritin level, f/u b12 and folate -pulmonary consult, Dr Feliz and cardio consult, Dr Perea Dispo: waiting for physical therapy input Seen and discussed with Dr Adames
[2018-09-07] MEDS: Cefepime 1gm in NS 100ml 1 GM/100 ML BAG IVPB SCH (13:35)
[2018-09-07 18:31] LABS: FOLATE 10.9 ng/mL
[2018-09-08] MEDS: MethylPREDNISolone 40 mg Vial IVP SCH ×2 (05:57→22:04)
[2018-09-08] MEDS: Insulin Regular 1 UNITS/0.01 ML ML IV SCH ×2 (05:57→14:26)
[2018-09-08 07:16] LABS: BASO # 0.01 K/mm3 (0.0-2.0); BASO % 0.1 % (0.0-3.0); GRAN # 7.01 (1.4-6.5); GRAN % 90.8 % (50.0-68.0); HEMOGLOBIN 8.7 g/dL (12.0-16.0); LYMPH # 0.2 (1.2-3.4); LYMPH % 2.6 % (22.0-35.0); MEAN CELL VOLUME 77.5 fl (80.0-105.0); MEAN CORPUSCULAR HEMOGLOBIN 22.5 pg (25.0-35.0); MEAN CORPUSCULAR HGB CONC 29.1 g/dl (31.0-37.0); MEAN PLATELET VOLUME 9.8 fl (7.0-11.0); MONO # 0.5 (0.1-0.6); MONO % 6.5 % (1.0-6.0); RBC 3.86 10^6/uL (3.5-6.1); RED CELL DISTRIBUTION WIDTH 27.2 % (11.5-14.5); WHITE BLOOD COUNT 7.7 10^3/uL (4.5-11.0)
[2018-09-08 07:40] LABS: ALB/GLOB RATIO 0.8 (1.1-1.8); ALBUMIN 2.5 g/dL (3.0-4.8); ALT/SGPT 69 U/L (7-56); AST/SGOT 29 U/L (14-36); BLOOD UREA NITROGEN 27 mg/dL (7-21); CALCIUM 8.3 mg/dL (8.4-10.5); GFR NON-AFRICAN AMERICAN > 60
--- NOTE | 2018-09-08 07:45 | CP.PCM.PN ---
Subjective - Date & Time of Evaluation Date of Evaluation: 09/08/18 Time of Evaluation: 07:39 - Subjective Subjective: PGY-2 heme/onc progress note for Dr Adames No acute events noted overnight. Patient stated she feels short of breath on exertion - such as walking to the bathroom. However at rest her breathing is "okay". Stated she feels anxious as to what could happen when she walks - but denied being nervous at time of interview. She denied being sob at time of interview, denied pain, GI issues, cp. Stated her legs are less edematous. Objective - Vital Signs/Intake and Output Vital Signs (last 24 hours): Temp Pulse Resp BP Pulse Ox 97.5 F L 62 20 134/69 95 09/08/18 00:01 09/08/18 02:00 09/08/18 00:01 09/08/18 00:01 09/08/18 00:01 Intake and Output: 09/08/18 09/08/18 06:59 18:59 Intake Total 240 Balance 240 - Medications Medications: Current Medications Acetylcysteine (Acetylcysteine 20%) 3 ml INH BIDRESP [facility] Last Admin: 09/07/18 20:30 Dose: 3 ml Albuterol/Ipratropium (Duoneb 3 Mg/0.5 Mg (3 Ml) Ud) 3 ml IH [id number] PRN PRN Reason: Shortness of Breath Last Admin: 09/06/18 07:22 Dose: 3 ml Arformoterol Tartrate (Brovana) 15 mcg IH [id number] [facility] Last Admin: 09/07/18 20:30 Dose: 15 mcg Aspirin (Aspirin Chewable) 81 mg PO DAILY [facility] Last Admin: 09/07/18 09:47 Dose: 81 mg Atorvastatin Calcium (Lipitor) 40 mg PO DAILY [facility] Last Admin: 09/07/18 09:47 Dose: 40 mg Budesonide (Pulmicort Respules) 0.25 mg IH [id number] [facility] Last Admin: 09/07/18 20:30 Dose: 0.25 mg Dextrose (Dextrose 50% Inj) 0 ml IV STAT PRN; Protocol PRN Reason: Hypoglycemia Protocol Enoxaparin Sodium (Lovenox) 40 mg SC DAILY [facility]; Protocol Last Admin: 09/07/18 09:47 Dose: 40 mg Furosemide (Lasix) 40 mg IVP BID [facility] Last Admin: 09/07/18 18:46 Dose: 40 mg Home Med (Home Med) 1 unit PO BID [facility] Last Admin: 09/07/18 18:46 Dose: 1 unit Dextrose (Dextrose 5% In Water 1000 Ml) 1,000 mls @ 0 mls/hr IV .Q0M PRN; Protocol PRN Reason: Hypoglycemia Protocol Cefepime HCl (Maxipime 1gm) 1 gm in 100 mls @ 100 mls/hr IVPB Q24H [facility]; Protocol Last Admin: 09/07/18 13:35 Dose: 100 mls/hr Insulin Human Regular (Humulin R) 8 units IV Q8 [facility] Last Admin: 09/08/18 05:57 Dose: 8 units Levothyroxine Sodium (Synthroid) 125 mcg PO DAILY [facility] Last Admin: 09/07/18 09:49 Dose: 125 mcg Methylprednisolone (Solu-Medrol) 40 mg IVP Q8 [facility] Last Admin: 09/08/18 05:57 Dose: 40 mg Metoprolol Tartrate (Lopressor) 25 mg PO BID [facility] Last Admin: 09/05/18 18:03 Dose: Not Given Pantoprazole Sodium (Protonix Ec Tab) 40 mg PO DAILY [facility] Last Admin: 09/07/18 09:47 Dose: 40 mg Pregabalin (Lyrica) 25 mg PO BID [facility] Last Admin: 09/05/18 18:03 Dose: Not Given - Labs Labs: 09/08/18 07:00 09/07/18 06:10 PT 13.6 SECONDS (9.4-12.5) H 09/05/18 11:30 INR 1.18 09/05/18 11:30 APTT 23.5 Seconds (25.1-36.5) L 09/05/18 11:30 - Additional Findings Additional findings: - Constitutional Appears: Well, Non-toxic, No Acute Distress - Head Exam Head Exam: ATRAUMATIC, NORMAL INSPECTION - Eye Exam Eye Exam: EOMI, Normal appearance, PERRL. absent: Scleral icterus - ENT Exam ENT Exam: Mucous Membranes Moist - Respiratory Exam Respiratory Exam: Wheezes, NORMAL BREATHING PATTERN - Cardiovascular Exam Cardiovascular Exam: Tachycardia, REGULAR RHYTHM, +S1, +S2. absent: JVD - GI/Abdominal Exam GI & Abdominal Exam: Normal Bowel Sounds, Soft. absent: Tenderness - Extremities Exam Extremities exam: Positive for: normal capillary refill, pedal edema, pedal pulses present - Neurological Exam Neurological exam: Alert, Oriented x3 - Psychiatric Exam Psychiatric exam: Normal Affect - Skin Skin Exam: Dry, Normal Color, Warm Assessment and Plan - Assessment and Plan (Free Text) Plan: Mrs White is a 68 year old female with a PMHx of unresectable stage III NSCLC with an ALK mutation, COPD, CHF, ASCVD, hx of colon cancer with resection stage 2, [place], AFib (now resolved), anemia of chronic disease, low vitamin D, obesity who present for shortness of breath and dry cough: #Right Upper Lobe Infiltrate 2/2 Radiation Induced or Superimposed HCAP #unresectable stage IIIb non-small cell carcinoma of the lung, currently on radiation #Iron Deficiency Anemia #sleep apnea syndrome #morbid obesity #right-sided heart failure #Hx of NSTEMI -currently on radiation (with 2 sessions left) to open up the passage of the right mainstem; still waiting for results from [employer] assay for next generation sequencing from Dr Hobbs's office -to treat her shortness of breath we'll give her brovana 15mcg ih q12h, budes onide 0.25mg ih q12h, duoneb q4h prn, acetylcysteine 3ml ih bid, lasix 40mg ivp bid, solumedrol 40mg ivp q12h * it appears everytime she has her lasix discontinued or reduced she has a re- accumulation of fluid -continue home meds lipitor 40mg po qd, synthroid 125mcg po qd, metoprolol tartrate 25mg po bid (on hold), pregabalin 25mg po bid (on hold), aspirin 81mg po qd, crizotinib 250mg po bid (to treat her lung cancer) -empiric abx coverage wth cefepime 2g ivp q8h (started 09/05), blood cx negative up to date, procalc negative -insulin regular 8units iv q8h -ppx with lovenox 40mg sc qd and protonix 40mg po qd -cpap while sleeping -head of bed at 30 degrees -iron 17, tibc 222, %sat 8, ferritin level 154, b12 normal and folate normal -f/u chest CT w/o contrast -pulmonary consult, Dr Feliz and cardio consult, Dr Perea, and Nephrology consult Dr Jang for fluid management Dispo: waiting for physical therapy input; patient de-saturates into 80s on ambulation Seen and discussed with Dr Adames
[2018-09-08] MEDS: Acetylcysteine 20% Inhal Soln (4ml) INH SCH ×2 (08:05→20:25)
[2018-09-08] MEDS: Budesonide 0.25 mg/2 ml Inhal Susp UD IH SCH ×2 (08:05→20:26)
[2018-09-08] MEDS: Arformoterol 15 mcg/2 ml Inh Sol IH SCH ×2 (08:05→20:26)
[2018-09-08] MEDS: Pantoprazole 40 mg EC Tab PO SCH (09:26)
[2018-09-08] MEDS: CRIZOTINIB 250 MG PO SCH ×2 (09:27→18:03)
[2018-09-08] MEDS: Enoxaparin 40 mg Syringe SC SCH (09:30)
[2018-09-08] MEDS: metOLazone 5 MG TAB PO SCH (09:31)
[2018-09-08] MEDS: Levothyroxine 125 MCG TAB PO SCH (09:38)
[2018-09-08] MEDS: Cefepime 1gm in NS 100ml 1 GM/100 ML BAG IVPB SCH (12:00)
--- NOTE | 2018-09-08 12:13 | PN ---
DATE: 09/08/2018 PULMONARY PROGRESS NOTE REFERRING PHYSICIAN: Gerard Gibson MD SUBJECTIVE: The patient is sitting up in chair in room. No acute distress. Reports cough and shortness of breath though present. No headache, rhinitis, chest pain, abdominal pain, nausea, vomiting, diarrhea and leg pain reported. Edema to bilateral lower extremity still present. OBJECTIVE: GENERAL: No acute distress. VITAL SIGNS: Blood pressure 126/70, pulse 69, temperature 97.5 and oxygen saturation 94% on nasal cannula. HEENT: Moist mucous membranes. Mallampati score of 4. Crowded airways. NECK: Supple. No JVD. LUNGS: Rhonchi bilaterally. Mild wheezing. ABDOMEN: Soft and nontender. No distention. No organomegaly. EXTREMITIES: Bilateral lower extremity edema. NEUROLOGIC: Awake, alert and verbal. Follows commands. MEDICATIONS: Reviewed. Mucomyst 3 mL inhalation twice a day, Duoneb 3 mL inhalation every 4 hours p.r.n., Brovana 15 mcg every 12 hours, aspirin 81 mg daily, Lipitor 40 mg daily, Pulmicort 0.25 mg inhalation every 12 hours, cefepime 1 g daily, Lovenox 40 mg subcutaneous daily, ferrous sulfate 324 mg twice a day, Lasix 40 mg IV push twice a day, Humulin R 8 units every 8 hours, Synthroid 125 mcg daily, Solu-Medrol 40 mg every 8 hours, metolazone 5 mg daily, Lopressor 25 mg twice a day, Protonix 40 mg daily, potassium chloride 20 mEq twice a day and Lyrica 25 mg twice a day. LABORATORY DATA: Reviewed. WBC 7.7, RBC 3.86, hemoglobin 8.7, hematocrit 29.9, and platelets 304. Sodium 135, potassium 4.4, chloride 98, carbon dioxide 34, anion gap 7, BUN 27, creatinine , GFR greater than 60, POC glucose 272, random glucose is 276, calcium 8.3, phosphorus 3.6, magnesium 1.9, total bilirubin 0.3, AST 29, ALT 69, alkaline phosphatase 128, total protein 5.6, albumin 2.5, globulin 3.1, and albumin-globulin ratio 0.8. Blood cultures preliminary no growth after 48 hours. IMPRESSION AND PLAN: Possible acute bronchitis, chronic lung disease, may be some atelectasis, mucous plugging stage III non-small cell carcinoma, history of colon cancer in the past, hypothyroidism, gastroesophageal reflux disease, obesity, degenerative joint disease, anemia, history of paroxysmal atrial fibrillation, history of non-ST elevation myocardial infarction, sleep apnea syndrome, diastolic dysfunction with heart failure, moderate pulmonary hypertension. Continue antibiotic therapy. Continue compression stocking to bilateral lower extremities, continue inhaled bronchodilators, bilateral positive airway pressure use at bedtime, sleep apnea precautions, head of bed elevated at 45 degrees, continue diuretics, gastric prophylaxis and deep venous thrombosis prophylaxis. The patient is currently undergoing radiation therapy. This patient was seen and examined with Dr. Feliz. Discussed assessment and plan as described above. Thank you for this consult. We will follow with you. Juan Richardson APN Hussein Feliz MD
--- NOTE | 2018-09-08 13:58 | CP.PCM.PCO ---
Physician Communication Note - Physician Communication Note Physician Communication Note: patient is accepted to TCU if medically cleared by Dr. Adames
[2018-09-08] MEDS: Potassium Chloride 20 mEq/15 ml LIQ UD PO SCH ×2 (14:00→17:38)
--- NOTE | 2018-09-08 14:01 | CP.PCM.PCO ---
Physician Communication Note - Physician Communication Note Physician Communication Note: CT chest result pending
--- NOTE | 2018-09-08 15:07 | PN ---
DATE: 09/08/2018 SUBJECTIVE: The patient is seen sitting in a chair on telemetry. She feels somewhat better. She continues to have productive cough. Her exertional dyspnea also persists. MEDICATIONS: Her current medications include Mucomyst, aspirin, Brovana, DuoNeb inhaler, ferrous sulfate, crizotinib, insulin coverage, Lasix 40 mg b.i.d., Lipitor, metoprolol 25 mg b.i.d., Lovenox, Lyrica, mexiletine, Protonix, Pulmicort, Solu-Medrol, and Synthroid. OBJECTIVE: GENERAL: She is an overweight middle-aged woman. VITAL SIGNS: Her blood pressure is 110/60 with a pulse of 70 in sinus, respirations are 16. She is afebrile. HEENT: No JVD. CHEST: Bilateral scattered rhonchi with occasional expiratory wheezing. HEART: PMI displaced laterally with systolic murmur at the low left sternal border. ABDOMEN: Soft, obese, nontender, normoactive bowel sounds. EXTREMITIES: 2-3+ leg edema. DIAGNOSTIC DATA: Potassium is 4.4, BUN and creatinine 27 and 0.7, glucose is 276. White count 7.7, hemoglobin and hematocrit 8.7 and 29.9 with platelet count of 304,000. IMPRESSION: 1. Apparent right apical pneumonia. 2. Decompensated congestive heart failure, acute on chronic combined systolic and diastolic. 3. Advanced lung cancer, undergoing radiation therapy. 4. Rest of problems as noted. RECOMMENDATIONS: IV Lasix will be continued for now. Negative fluid balance will be maintained. Oral Zaroxolyn will be added to her regimen along with a potassium supplement from the next 7 days to expedite diuresis. Monitoring of her basic metabolic panel will be planned. We will continue to follow along as needed. Vidal Fong MD MTDD
--- NOTE | 2018-09-08 16:07 | CT ---
Date of service: 09/08/2018 PROCEDURE: CT Chest without contrast HISTORY: radiation induced lung changes and/or PNA? c/o sob COMPARISON: 08/11/2018 TECHNIQUE: Contiguous axial images were obtained through the chest without intravenous contrast enhancement. Sagittal and coronal reconstructions were performed. Radiation dose: Total exam DLP = 746.15 mGy-cm. This CT exam was performed using one or more of the following dose reduction techniques: Automated exposure control, adjustment of the mA and/or kV according to patient size, and/or use of iterative reconstruction technique. FINDINGS: LUNGS: There is a diffuse alveolar infiltrate in both upper lobes and the right lower lobe. There is a patchy infiltrate in the left lower lobe. Findings are most consistent with pneumonia. There is a 2 x 3.4 cm mass in the right lower lobe adjacent to the inferior hilum. MEDIASTINUM: Unremarkable thoracic aorta. No aneurysm. Normal sized heart. Main pulmonary artery unremarkable. No vascular congestion. Large pretracheal lymph nodes are seen the largest measuring 2.9 x 4.2 cm. Aortic calcification PLEURA: No pleural fluid. No pneumothorax. The previous pleural effusion has resolved BONES: No fracture. No destructive lesion. UPPER ABDOMEN: Grossly unremarkable. OTHER FINDINGS: None. IMPRESSION: There is a diffuse alveolar infiltrate in both upper lobes and the right lower lobe. There is a patchy infiltrate in the left lower lobe. Findings are most consistent with pneumonia. There is a 2 x 3.4 cm mass in the right lower lobe adjacent to the inferior hilum. Mediastinal adenopathy
[2018-09-08] MEDS: Insulin Reg-LOW-Coverage SC SCH ×2 (17:38→22:04)
--- NOTE | 2018-09-08 23:17 | CON ---
DATE: 09/08/2018 REASON FOR CONSULTATION: Edema, fluid management. HISTORY OF PRESENTING ILLNESS: A 68-year-old lady, previously unknown to me. The patient was admitted yesterday because of increasing lower extremity edema. The patient gives a history of colon cancer diagnosed 1 year ago, for which she underwent partial colectomy, no chemotherapy or radiation was required. She also was found to have right-sided lung cancer for which she is receiving chemotherapy. The patient denies any history of hypertension, no history of diabetes. She denies any knowledge of any kidney disease. Currently, she is sitting in chair. She is awake, she is alert, she is comfortable. She reports that she has edema of her lower extremities, but she is getting Lasix and she is starting to urinate. PAST MEDICAL AND SURGICAL HISTORY: Unresectable stage III [id number] lung cancer with ALK mutation, COPD, CHF, CAD?, colon cancer, [place], atrial fibrillation, anemia, obesity. FAMILY HISTORY: Noncontributory. SOCIAL HISTORY: Ex-smoker, quit 20 years ago. ALLERGIES: NO KNOWN DRUG ALLERGIES. MEDICATIONS AT HOME: Aspirin 81, Lipitor 40, Xalkori 250 b.i.d., Synthroid 125, Protonix 40. REVIEW OF SYSTEMS: All systems are reviewed, pertinent positives are mentioned in history of presenting illness, rest unremarkable. PHYSICAL EXAMINATION: GENERAL: Obese elderly lady sitting in chair. VITAL SIGNS: Blood pressure 144/88, heart rate 77, respiratory rate 20, temperature 98. HEENT: Normocephalic, atraumatic, positive pallor. NECK: Supple, no JVD. LUNGS: Bilateral equal entry, bilateral equal expansion, no rales. CARDIAC: S1, S2, regular rate and rhythm, no murmur, no rub. ABDOMEN: Obese, distended, soft, nontender, bowel sounds present. EXTREMITIES: 3+ pitting edema of the lower extremities. INTAKE AND OUTPUT: 2020/not charted. LABORATORY DATA: WBC 7.7, hemoglobin 8.7, hematocrit 29.9, platelets 304. Sodium 135, potassium 4.4, chloride 98, CO2 of 34, BUN 27, creatinine 0.7, glucose 276, calcium 8.3, phosphorus 3.6, magnesium 1.9, AST 29, ALT 69. Blood cultures, no growth. CURRENT MEDICATIONS: Mucomyst, aspirin, Brovana, Lasix 40 IV every 12, Lipitor, Lopressor 25 b.i.d., Lovenox 40, Lyrica 25 b.i.d., cefepime 1 g daily, potassium 20 mEq b.i.d., Protonix 40, Solu-Medrol 40 IV every 12, Synthroid 125, Zaroxolyn 5 daily. ASSESSMENT: 1. 3+ pitting edema, ? etiology. 2. Anemia of chronic kidney disease. 3. Mild hyponatremia. 4. Stage III [id number] lung cancer. 5. History of colon cancer, status post resection. PLAN: 1. Agree with Lasix 40 IV every 12. 2. Agree with metolazone. 3. Daily weights. 4. Strict intake and output. 5. Check urinalysis for proteinuria. 6. Further recommendations depending on if she has proteinuria or not. Tamiko Jang MD
[2018-09-09 07:32] LABS: HEMOGLOBIN 9.5 g/dL (12.0-16.0); LYMPH # 0.4 (1.2-3.4); LYMPH % 5.2 % (22.0-35.0); MEAN CELL VOLUME 77.5 fl (80.0-105.0); MEAN CORPUSCULAR HGB CONC 29.7 g/dl (31.0-37.0); MEAN PLATELET VOLUME 9.5 fl (7.0-11.0); MONO # 0.3 (0.1-0.6); MONO % 4.3 % (1.0-6.0); RBC 4.13 10^6/uL (3.5-6.1); RED CELL DISTRIBUTION WIDTH 26.8 % (11.5-14.5); WHITE BLOOD COUNT 7.1 10^3/uL (4.5-11.0)
[2018-09-09 07:48] LABS: BLOOD UREA NITROGEN 28 mg/dL (7-21); CALCIUM 8.6 mg/dL (8.4-10.5); GFR NON-AFRICAN AMERICAN > 60
[2018-09-09] MEDS: Insulin Lispro (humaLOG) LOW Coverage SC SCH ×4 (07:51→21:42)
[2018-09-09] MEDS: Insulin Lispro 1 UNITS/0.01 ML SC SCH ×3 (07:55→17:18)
[2018-09-09] MEDS: Acetylcysteine 20% Inhal Soln (4ml) INH SCH ×2 (08:15→19:47)
[2018-09-09] MEDS: Arformoterol 15 mcg/2 ml Inh Sol IH SCH ×2 (08:16→19:47)
[2018-09-09] MEDS: Budesonide 0.25 mg/2 ml Inhal Susp UD IH SCH ×2 (08:16→19:47)
[2018-09-09] MEDS: Albuterol-Ipratrop 3 mg / 0.5 (3 ml) UD IH PRN (08:16)
--- NOTE | 2018-09-09 09:06 | PN ---
DATE: 09/09/2018 PULMONARY PROGRESS NOTE REFERRING PHYSICIAN: Gerard Gibson MD SUBJECTIVE: The patient is sitting up in bed. No acute distress. Reports feeling slightly better this morning. No headache, rhinitis, chest pain, abdominal pain, nausea, vomiting, diarrhea, leg pain reported. Reports some decreasing in edema. Reports some improvement in cough and shortness of breath today. OBJECTIVE: GENERAL: No acute distress. VITAL SIGNS: Blood pressure 130/76, pulse 70, temperature 98.1, oxygen 95% on nasal cannula. HEENT: Moist mucous membranes. Mallampati score of 4. Crowded airways. NECK: Supple. No JVD. LUNGS: Rhonchi bilaterally. CARDIOVASCULAR: S1 and S2 audible. ABDOMEN: Soft and nontender. No distention. No organomegaly. EXTREMITIES: Bilateral lower extremity edema. NEUROLOGIC: Awake, alert, and verbal. Follows commands. MEDICATIONS: Reviewed. Mucomyst 3 mL inhalation twice a day, Duoneb 3 mL inhalation every 4 hours p.r.n., Brovana 15 mcg every 12 hours, aspirin 81 mg daily, Lipitor 40 mg daily, Pulmicort 0.25 mg every 12 hours, cefepime 1 g daily, Lovenox 40 mg daily, ferrous sulfate 324 mg twice a day, Lasix 40 mg IV push twice a day, Humalog sliding scale a.c. and at bedtime, Humalog 12 units a.c., Synthroid 125 mcg daily, Solu-Medrol 40 mg every 12 hours, metolazone 5 mg p.o. daily, Lopressor 25 mg twice a day, Protonix 40 mg daily, potassium chloride 20 mEq twice a day, Lyrica 25 mg twice a day. LABORATORY DATA: Reviewed. WBC 7.1, RBC 4.13, hemoglobin 9.5, hematocrit 32, and platelets 357. Sodium 133, potassium 4.3, chloride 91, carbon dioxide 30, anion gap 8, BUN 28, creatinine 0.7, GFR greater than 60, POC glucose 256, random glucose is 274, calcium 8.6. Blood cultures preliminary no growth after three days. Chest CT shows diffuse alveolar infiltrate in both upper lobes and right upper lobe, patchy infiltrate in left lower lobe, findings consistent with pneumonia. There is a 2 x 3.4 cm mass in the right lower lobe adjacent to the inferior hilum, mediastinal adenopathy. IMPRESSION AND PLAN: Possible acute bronchitis, chronic lung disease,may be some atelectasis, mucous plugging stage III non-small cell carcinoma, history of colon cancer in the past, hypothyroidism, gastroesophageal reflux disease, obesity, degenerative joint disease, anemia, history of paroxysmal atrial fibrillation, history of non-ST elevation myocardial infarction, sleep apnea syndrome, diastolic dysfunction with heart failure, moderate pulmonary hypertension. Continue antibiotic therapy. Continue compression stocking to bilateral lower extremities, inhaled bronchodilators, bilateral positive airway pressure use at bedtime, head of bed elevated at 45 degrees, sleep apnea precautions, continue diuretics, gastric prophylaxis and deep venous thrombosis prophylaxis. New CT scan results may represent radiation induced pneumonitis. We will speak with Oncology regarding how much radiation treatments the patient has left. We will order ProBNP and procalcitonin to be done. The patient is seen and examined with Dr. Feliz. Discussed assessment and plan as described above. Thank you for this consult. We will follow with you. Juan Richardson APN Hussein Feliz MD MTDKadie
[2018-09-09] MEDS: Pantoprazole 40 mg EC Tab PO SCH (09:47)
[2018-09-09] MEDS: CRIZOTINIB 250 MG PO SCH ×2 (09:47→17:20)
[2018-09-09] MEDS: Levothyroxine 125 MCG TAB PO SCH (09:47)
[2018-09-09] MEDS: metOLazone 5 MG TAB PO SCH (09:48)
[2018-09-09] MEDS: Potassium Chloride 20 mEq/15 ml LIQ UD PO SCH ×2 (09:48→17:21)
[2018-09-09] MEDS: MethylPREDNISolone 40 mg Vial IVP SCH ×2 (09:51→22:56)
[2018-09-09] MEDS: Enoxaparin 40 mg Syringe SC SCH (09:53)
[2018-09-09] MEDS: Cefepime 1gm in NS 100ml 1 GM/100 ML BAG IVPB SCH (10:31)
--- NOTE | 2018-09-09 13:51 | CON ---
DATE OF CONSULTATION: 09/09/2018 LOCATION: Room 269. HISTORY OF PRESENT ILLNESS: This is a 68-year-old female with known history of chronic obstructive lung disease, presenting here with progressive shortness of breath and generalized body weakness and started on IV steroid therapy with supervening hyperglycemic accelerations as noted thereof. She is being referred now for further diabetic evaluation and management. PAST MEDICAL HISTORY: The patient actually is not taking any kind of diabetic medications at this time as noted and only receives insulin coverage for inpatient diabetic management. History of hypertension and dyslipidemia. History of chronic obstructive lung disease with previous admissions for exacerbations of the same. History of chronic atrial fibrillation, which has resolved accordingly. History of hypothyroidism, currently on levothyroxine given as 125 mcg daily. History of stage III non-small cell carcinoma as noted. History of a previous colonic carcinoma with subsequent colonic resection and is stage II and the patient received chemotherapy as noted thereof. FAMILY HISTORY: Positive for hypertension and heart disease. SOCIAL HISTORY: The patient is a former smoker. No other known substance use. She has a supportive family otherwise. REVIEW OF SYSTEMS: As mentioned above. Admits to generalized body weakness with progressive bouts of dizziness and lightheadedness, worse on the day of admission. No chest pains, but admits to progressive shortness of breath initially on exertion and then at rest with paroxysmal nocturnal dyspnea. Her oral intake has been variable with nausea and dyspepsia and vague upper abdominal pains. PHYSICAL EXAMINATION: GENERAL: Average built female in no apparent distress. VITAL SIGNS: Blood pressure of 140/80, pulse of 100 beats per minute and regular, temperature 98, respirations 20. HEENT: Head normocephalic. Eyes anicteric with pink conjunctivae. Funduscopy not possible at this time. Ears, nose and throat otherwise normal. NECK: Supple. Thyroid gland is normal in size. No carotid bruits or cervical adenopathy. CARDIOPULMONARY: Some adynamic precordium. S1, S2 is rapid and regular. LUNGS: Showed scattered rhonchi bilaterally. ABDOMEN: Flat, soft with positive bowel sounds. EXTREMITIES: No peripheral edema. Pulses are +2 bilaterally. LABORATORY DATA: Chemistries showed a BUN of 27, sodium 135, potassium 4.4, chloride 98, CO2 of 34, glucose 276, and creatinine 0.7. Her glucose levels have ranged from 272 to 347 mg/dL. ASSESSMENT: This is a 68-year-old female with acute exacerbation of chronic obstructive pulmonary disease and currently on IV steroid therapy with expected transient hyperglycemic accelerations from the increased insulin resistance thereof. PLAN OF MANAGEMENT: We will initiate, just for inpatient diabetic management, a basal and bolus insulin drug combination to optimize metabolic control. We will start her with Humalog given as 12 units t.i.d. before meals to start today as ordered. We will also add Levemir given as basal insulin at 30 units subcu at bedtime daily to start tonight as ordered. We will modify the coverage scale to obviate hypoglycemia and detailed orders have been given. We will obtain a hemoglobin A1c to ascertain her prior glycemic control. We will also add thyroid function studies and adjust her levothyroxine dose accordingly. We will continue the present medical management as noted and follow accordingly from the metabolic view point. Crystal Mcgregor MD
[2018-09-09] MEDS: WATER IVPB SCH ×2 (16:20→22:57)
[2018-09-09] MEDS: TRIMETHOPRIM IVPB SCH ×2 (16:20→22:57)
[2018-09-09] MEDS: SULFAMETHOXAZOLE IVPB SCH ×2 (16:20→22:57)
[2018-09-09] MEDS: DEXTROSE 5% IVPB SCH ×2 (16:20→22:57)
[2018-09-09 16:40] LABS: URINE BILIRUBIN NEGATIVE (NEGATIVE); URINE BLOOD LARGE (NEGATIVE); URINE GLUCOSE (UA) >=1000 mg/dL (NEGATIVE); URINE LEUKOCYTE ESTERASE TRACE Leu/uL (NEGATIVE); URINE PROTEIN NEGATIVE mg/dL (<30 mg/dL); URINE UROBILINOGEN 0.2 E.U./dL (<1 E.U./dL)
[2018-09-09 16:41] LABS: URINE APPEARANCE SLIGHT-CLOUDY (CLEAR); URINE COLOR YELLOW (YELLOW)
[2018-09-09 16:58] LABS: URINE AMORPHOUS SEDIMENT FEW /hpf; URINE BACTERIA LARGE /hpf; URINE RBC TNTC /hpf (0-2)
--- NOTE | 2018-09-09 17:36 | PN ---
DATE: 09/09/2018 This is [facility] visit on the medical floor. Per Dr. Adames. SUBJECTIVE: The patient is a 68-year-old female seen sitting up in a chair with known history of unresectable stage III non-small cell CA with history of COPD and history of colon cancer. At present, the patient is now resting in no acute distress with recent testing showing pneumonia on CT scan done yesterday. PHYSICAL EXAMINATION: VITAL SIGNS: Temperature 98.1, pulse 70, respirations 20, blood pressure 119/72, and pulse oximetry 95%. HEENT: Unremarkable. NECK: Supple. HEART: Regular rate. LUNGS: Scattered rhonchi. Faint expiratory wheeze. ABDOMEN: Obese, soft, and nontender. EXTREMITIES: +1 edema of the feet and hands. NEUROLOGIC: Awake and alert. SKIN: Warm and dry with bandage on her left lower extremity. LABORATORY DATA: The patient's labs were done. White blood cell count 7.1, hemoglobin 9.5, hematocrit 32, platelet count of 357,000 with metabolic panel showing a BUN of 28 with a normal creatinine 0.7. Her nonfasting sugar today is 256; it was greater than 500 yesterday. ALT of 69 done yesterday. The patient did have a CT scan of her chest done yesterday, it was read as diffuse alveolar infiltrate both upper lung lobes and the right lower lobe with patchy infiltrate in the left lower lobs. Findings most consistent with pneumonia. A 2 x 2.4 cm mass in the right lower lobe adjacent to the inferior hilum with mediastinal adenopathy. ASSESSMENT: 1. Pneumonia. 2. Chronic obstructive pulmonary disease stage III non-small cell cancer. 3. History of colon cancer. 4. Hypothyroidism. 5. Gastroesophageal reflux disease. 6. Obesity. 7. Anemia of chronic disease. 8. History of myocardial infarction. 9. Pulmonary hypertension. 10. Diabetes mellitus with elevated blood sugars secondary to steroids? 11. Questionable glaucoma. 12. Hypothyroidism. PLAN: The plan for this patient is to continue present medical regimen. We will ask for consult with Dr. Toro, Infectious Disease for her pneumonia. Consult with Dr. Crystal Mcgregor, Endocrinology for her elevated blood sugar greater than 500. This is a complex patient with a comprehensive medically necessary and appropriate visit carried out in excess of 40 minutes with the patient's questions answered to her satisfaction with no transfer plans to [facility] at this time until her pneumonia is appropriately addressed. Gerard Gibson MD
--- NOTE | 2018-09-09 18:45 | PN ---
DATE: 09/09/2018 SUBJECTIVE: The patient is seen sitting in bed. She is awake. She is alert. She is comfortable. PHYSICAL EXAMINATION GENERAL: Elderly lady sitting in bed. VITAL SIGNS: Blood pressure 150/73, heart rate 81, respiratory rate 19, temperature 97.2. HEENT: Normocephalic, atraumatic, positive pallor. NECK: Supple, no JVD. LUNGS: Bilateral equal air entry, bilateral equal expansion. CARDIAC: S1 and S2, regular rate and rhythm, no murmur, no rub. ABDOMEN: Obese, distended, soft, nontender, bowel sounds present. EXTREMITIES: 2+ pitting edema of the lower extremities. INTAKE AND OUTPUT: Not charted. Weight charted as 173 pounds. Two days ago, it was 264??? LABORATORY DATA: WBC 7.1, hemoglobin 9.5, hematocrit 32, platelets 357. Sodium 133, potassium 4.3, chloride 91, CO2 of 38, BUN 28, creatinine 0.7, glucose 274, calcium 8.6. Blood cultures, no growth. CURRENT MEDICATIONS: Aspirin, Brovana, DuoNeb, Feosol, insulin, Lasix 40 IV every 12 hours, Lipitor 40, Lopressor 25 b.i.d. not given, Lovenox 40 subcu, Lyrica, potassium 20 mEq b.i.d., Protonix, Solu-Medrol 40 IV every 12 hours, Synthroid, Bactrim every 8 hours, Zaroxolyn. DIAGNOSTIC DATA: CT of chest: Diffuse alveolar infiltrate in both upper lobes and right lower lobe, patchy infiltrate in the left lower lobe, also a 3-cm mass in the right lower lobe adjacent to the inferior hilum, mediastinal adenopathy. ASSESSMENT: 1. Edema. 2. Stage III, nonresectable non-small cell carcinoma of the lung. 3. Hyperglycemia secondary to Solu-Medrol? 4. Multilobar pneumonia? 5. Morbid obesity. 6. History of colon cancer, status post resection. PLAN: 1. Urinalysis was ordered yesterday, not done. 2. Continue IV Lasix. 3. Strict intake and output. 4. Daily accurate weights. 5. Further recommendations once urinalysis is back. Tamiko Jang MD [facility] # [id number]
--- NOTE | 2018-09-09 19:31 | CON ---
DATE: 09/09/2018 LOCATION: The patient is in room 269, bed 2. CHIEF COMPLAINT: Shortness of breath on several days. HISTORY OF PRESENT ILLNESS: This is 68-year-old female with stage IV non-small cell lung cancer, hypothyroidism, colon cancer, high cholesterol, cataract, degenerative joint disease, long time ex-smoker, anemia who was admitted because of shortness of breath and found to have pneumonia and hypoxia. Infectious Disease consultation requested. The patient states that she had low-grade fevers. She did have shortness of breath, no chest pain. There is cough that is nonproductive. No headaches. No blurred vision. No abdominal pain, diarrhea or constipation. No bright red blood per rectum. No melena. PAST MEDICAL HISTORY: Significant for stage IV non-small cell-lung cancer, hypothyroidism, colon cancer, high cholesterol, cataract, degenerative joint disease, long time ex-smoker and anemia. PAST SURGICAL HISTORY: Significant for polypectomy, colonoscopy, colon resection and surgery for detached retina. ALLERGIES: THE PATIENT HAS NO KNOWN ALLERGIES. HOME MEDICATIONS: Include Xalkori, Lipitor, aspirin. The patient was on prednisone and she had been on prednisone, high dose prednisone in the past. PHYSICAL EXAMINATION: VITAL SIGNS: The patient seen in bed with a temperature of 97, blood pressure is 150/70, heart rate of is up to 98 and 99, blood pressure was 130/70, and patient's O2 saturation was down to 80% on room air. HEENT: Unremarkable. NECK: Supple. LUNGS: Decreased breath sounds. HEART: Normal, S1 and S2. ABDOMEN: Soft and nontender. LABORATORY DATA: Reveals a white count of 7.1, hemoglobin of 9 and platelets of 357. Coagulation is noted. Chemistry reveals a BUN of 28, creatinine of 0.7, procalcitonin 0.27, LDH is 1670, BNP is over 800. CAT scan of the chest reveals the infiltrate in upper lobes and right lower lobe patchy infiltrate in the left lower lobe consistent with pneumonia. There is 2 x 3.4 cm mass and initial chest x-ray on the admission on reveals no right apical infiltrate. Microbiology reveals the blood cultures are no growth. ASSESSMENT AND PLAN: She is a 68-year-old female with stage IV non-small cell lung cancer, hypothyroidism, colon cancer, high cholesterol, respiratory rate of 22, heart rate of 99. CAT scan with alveolar infiltrates, had been on prednisone. #1 sepsis, health-care associated pneumonia, must rule out opportunistic infections such as PCP, Histoplasma, Aspergillus, cryptococcosis, fungal versus viral should have the respiratory viral panel , parainfluenza virus, CMV, PCR, PBV, coronavirus, metapneumovirus. Our particular concern is PCP. We will order Fungitell 1-3 [id number], Histoplasma, galactomannan, parainfluenza viral antigen, adenovirus, PCR quantity. We will make further recommendations. Pending initial workup results. Bayron Rooney MD
[2018-09-10] MEDS: SULFAMETHOXAZOLE IVPB SCH ×3 (05:55→21:52)
[2018-09-10] MEDS: TRIMETHOPRIM IVPB SCH ×3 (05:55→21:52)
[2018-09-10] MEDS: DEXTROSE 5% IVPB SCH ×3 (05:55→21:52)
[2018-09-10] MEDS: WATER IVPB SCH ×3 (05:55→21:52)
[2018-09-10 06:22] LABS: BASO # 0.01 K/mm3 (0.0-2.0); BASO % 0.2 % (0.0-3.0); LYMPH # 0.3 (1.2-3.4); LYMPH % 4.4 % (22.0-35.0); MEAN CELL VOLUME 77.2 fl (80.0-105.0); MEAN CORPUSCULAR HGB CONC 29.8 g/dl (31.0-37.0); MEAN PLATELET VOLUME 9.7 fl (7.0-11.0); MONO # 0.4 (0.1-0.6); MONO % 5.4 % (1.0-6.0); RBC 3.91 10^6/uL (3.5-6.1); RED CELL DISTRIBUTION WIDTH 26.3 % (11.5-14.5); WHITE BLOOD COUNT 6.6 10^3/uL (4.5-11.0)
[2018-09-10 06:31] LABS: ALB/GLOB RATIO 0.8 (1.1-1.8); ALBUMIN 2.5 g/dL (3.0-4.8); ALT/SGPT 78 U/L (7-56); AST/SGOT 32 U/L (14-36); BLOOD UREA NITROGEN 28 mg/dL (7-21); CALCIUM 8.3 mg/dL (8.4-10.5); GFR NON-AFRICAN AMERICAN > 60
[2018-09-10 06:38] LABS: B-TYPE NATRIURETIC PEPTIDE 198 pg/mL (0-450)
[2018-09-10] MEDS: Acetylcysteine 20% Inhal Soln (4ml) INH SCH ×2 (08:40→19:31)
[2018-09-10] MEDS: Albuterol-Ipratrop 3 mg / 0.5 (3 ml) UD IH PRN (08:41)
[2018-09-10] MEDS: Budesonide 0.25 mg/2 ml Inhal Susp UD IH SCH ×2 (08:41→19:31)
--- NOTE | 2018-09-10 08:41 | PN ---
DATE: 09/10/2018 PULMONARY PROGRESS NOTE REFERRING PHYSICIAN: Gerard Gibson MD SUBJECTIVE: The patient is sitting at bedside. No acute distress. No overnight events reported. The patient reports feeling better today. No headache, rhinitis, chest pain, abdominal pain, nausea, vomiting, diarrhea, leg pain or leg swelling reported. Cough and shortness of breath have improved. OBJECTIVE: GENERAL: No acute distress. VITAL SIGNS: Blood pressure 108/77, pulse 70, temperature 97.6, and oxygen saturation 91%. HEENT: Moist mucous membranes. Mallampati score of 4. Crowded airways. NECK: Supple. No JVD. LUNGS: Few rhonchi bilaterally. CARDIOVASCULAR: S1 and S2, audible. ABDOMEN: Soft and nontender. No distention. No organomegaly. EXTREMITIES: Bilateral lower extremity edema. NEUROLOGIC: Awake, alert and verbal. Follows commands. MEDICATIONS: Reviewed. Mucomyst 3 mL inhalation twice a day, Duoneb 3 mL inhalation every 4 hours p.r.n., Brovana 15 mcg every 12 hours, aspirin 81 mg daily, Lipitor 40 mg daily, Pulmicort 0.25 mg inhalation every 12 hours, Lovenox 40 mg subcutaneous daily, ferrous sulfate 324 mg twice a day, Lasix 40 mg twice a day, Humalog sliding scale a.c. and at bedtime, Humalog 12 units subcu a.c., Synthroid 125 mcg p.o. daily, Solu-Medrol 40 mg IV push every 12 hours, metolazone 5 mg daily, metoprolol tartrate 25 mg twice a day, Protonix 40 mg daily, potassium chloride 20 mEq twice a day, Lyrica 25 mg twice a day and Bactrim 240 mg every 8 hours. LABORATORY DATA: Reviewed. WBC 6.6, RBC 3.91, hemoglobin 9, hematocrit 30.2, and platelets 334. Sodium 133, potassium 4.4, chloride 90, carbon dioxide 40, anion gap 7, BUN 28, creatinine 0.8, GFR greater than 60, random glucose is 300, calcium 8.3, total bilirubin 0.3, AST 32, ALT, alkaline phosphatase 127, proBNP 198, total protein 5.5, albumin 2.5, globulin 3.0, albumin-globulin ratio 0.8, procalcitonin 0.27. Urinalysis; urine blood large, urine leukocyte esterase trace urine RBC. Urine WBC 5-10. IMPRESSION AND PLAN: Stage IV non-small cell lung cancer, hypothyroidism, colon cancer, high cholesterol, chronic lung disease, alveolar infiltrates on CAT scan, gastroesophageal reflux disease, degenerative joint disease, anemia, history of paroxysmal atrial fibrillation, sleep apnea syndrome, diastolic dysfunction with heart failure, moderate pulmonary hypertension. Continue antibiotic therapy per Infectious Disease. Continue compression stocking to bilateral lower extremities. Bilateral positive airway pressure use at bedtime, head of bed elevated at 45 degrees, sleep apnea precautions, continue inhaled bronchodilators, continue diuretics, gastric prophylaxis and deep venous thrombosis prophylaxis. Continue current doses and steroids. The patient is seen and examined with Dr. Feliz. Discussed assessment and plan as described above. Thank you for this consult. We will follow with you. Juan Richardson APN Hussein Feliz MD DAVID
[2018-09-10] MEDS: Arformoterol 15 mcg/2 ml Inh Sol IH SCH ×2 (08:45→19:31)
[2018-09-10] MEDS: Insulin Lispro (humaLOG) LOW Coverage SC SCH ×4 (08:48→21:50)
[2018-09-10] MEDS: Insulin Lispro 1 UNITS/0.01 ML SC SCH ×3 (08:51→17:44)
[2018-09-10] MEDS: MethylPREDNISolone 40 mg Vial IVP SCH ×2 (09:41→21:51)
[2018-09-10] MEDS: Enoxaparin 40 mg Syringe SC SCH (09:42)
[2018-09-10] MEDS: metOLazone 5 MG TAB PO SCH (09:42)
[2018-09-10] MEDS: Levothyroxine 125 MCG TAB PO SCH (09:42)
[2018-09-10] MEDS: Potassium Chloride 20 mEq/15 ml LIQ UD PO SCH ×2 (09:42→17:45)
[2018-09-10] MEDS: Pantoprazole 40 mg EC Tab PO SCH (09:42)
[2018-09-10] MEDS: CRIZOTINIB 250 MG PO SCH ×2 (09:43→17:46)
--- NOTE | 2018-09-10 12:33 | PN ---
DATE: 09/10/2018 SUBJECTIVE: The patient is seen this morning in 269, bed 2. She is still complaining of lower extremity edema. She still has shortness of breath, although it is somewhat improved with rest. PHYSICAL EXAMINATION: VITAL SIGNS: Temperature is 97, blood pressure is 108/70, respiratory rate of 22, and a heart rate of 70. The patient's saturation is up to 91%, initially it was on admission at 80% saturation on room air. HEENT: Unremarkable. NECK: Supple. LUNGS: Have decreased breath sounds. HEART: Normal S1, S2. ABDOMEN: Soft, nontender. LABORATORY EXAMINATION: Reveals a white count is 6.6, hemoglobin of 9, platelets of 334. BUN of 28, creatinine of 0.9. The patient has a procalcitonin of 0.27. Urinalysis is noted. Microbiology reveals the blood cultures are negative. ASSESSMENT AND PLAN: This is a 68-year-old female with stage IV non-small cell lung cancer, hypothyroidism, colon cancer, high cholesterol who was admitted with sepsis with healthcare-associated pneumonia. On CAT scan, the patient has bilateral alveolar infiltrates. The patient had been on prednisone. Concerned about infection such as PCP, Histoplasma, Aspergillus, and Cryptococcus. In addition of viral infections etiology with a normal procalcitonin including and Erik-Polanco virus, coronavirus, metapneumovirus and respiratory syncytial virus. Currently on Bactrim day #2 and awaiting for Fungitell galactomannan and CMV DNA, Aspergillus DNA PCR, adenovirus PCR, and Histoplasma galactomannan, cryptococcal antigen, day #2 of Bactrim. She is tolerating it well and we will make further recommendations and should have the respiratory viral panel studies also. We will follow with you. Bayron Rooney MD
--- NOTE | 2018-09-10 17:01 | PN ---
DATE: 09/10/2018 SUBJECTIVE: The patient is seen sitting in a chair on telemetry. Her dyspnea has improved. She continues to have some peripheral edema. CURRENT MEDICATIONS: Include Mucomyst, aspirin, Brovana, DuoNeb inhaler, ferrous sulfate, crizotinib, insulin, Lasix 40 mg IV b.i.d., Lovenox 40 mg daily, Lyrica, Protonix, Pulmicort, Solu-Medrol, Synthroid, Bactrim and Zaroxolyn. OBJECTIVE: GENERAL: She is an obese middle-aged woman. VITAL SIGNS: Blood pressure is 108/76 with pulse of 62 in sinus, respirations are 16. She is afebrile. HEENT: Normocephalic, atraumatic. CHEST: Few scattered rhonchi heard with scattered expiratory wheezing as well HEART: PMI displaced laterally with systolic murmur is present lower sternal border. ABDOMEN: Soft, obese, nontender with bowel sounds. EXTREMITIES: 2+ edema to the knees. DIAGNOSTIC DATA: Potassium 4.4, BUN and creatinine 20 and 0.9, bicarbonate is 40. White count 6.6, hemoglobin and hematocrit 9 and 30.2 with platelet count 334,000. IMPRESSION: 1. Right apical pneumonia, remains on antibiotic therapy. 2. Decompensated congestive heart failure, [id number] combined systolic and diastolic. 3. Advanced lung cancer, undergoing radiation therapy. RECOMMENDATIONS: Her current diuretic regimen will continue. Spirolactone will be added to her regimen as well. Continue monitoring of her basic metabolic profile as planned. Sodium and fluid restriction should continue. Further recommendations will be made based upon her clinical course. We will continue to follow and make further recommendations as needed. Vidal Fong MD
[2018-09-10] MEDS ORDERED: Insulin Detemir 100 units/ml Vial (Levemir) SC SCH (22:00)
--- NOTE | 2018-09-11 03:51 | PN ---
DATE: 09/10/2018 ENDO FOLLOWUP NOTE LOCATION: Room 269. SUBJECTIVE: This is a 68-year-old female with recent acute exacerbation of COPD, currently on IV steroid therapy with Solu-Medrol up to 40 mg IV every 12 hours as ordered and is now being followed closely for metabolic management. Her glycemic levels are fluctuating, but improved and the glucose values have ranged from 256 to 322 and 328 mg/dL. Her chemistry showed a BUN of 28, sodium 133, potassium 4.4, chloride 90, CO2 40, glucose 300, creatinine 0.9. So, at this time, we will continue the same basal and bolus insulin regimen with Humalog given as 12 units t.i.d before meals as ordered. We will lower the basal insulin to Levemir at 24 units subcu at bedtime daily as given. We will titrate incrementally as indicated to optimize metabolic control. We will follow. Crystal Mcgregor MD
[2018-09-11] MEDS: DEXTROSE 5% IVPB SCH ×3 (05:44→21:56)
[2018-09-11] MEDS: SULFAMETHOXAZOLE IVPB SCH ×3 (05:44→21:56)
[2018-09-11] MEDS: TRIMETHOPRIM IVPB SCH ×3 (05:44→21:56)
[2018-09-11] MEDS: WATER IVPB SCH ×3 (05:44→21:56)
[2018-09-11 07:19] LABS: BASO # 0.01 K/mm3 (0.0-2.0); BASO % 0.1 % (0.0-3.0); HEMOGLOBIN 8.7 g/dL (12.0-16.0); LYMPH # 0.3 (1.2-3.4); LYMPH % 3.7 % (22.0-35.0); MEAN CELL VOLUME 76.9 fl (80.0-105.0); MEAN CORPUSCULAR HEMOGLOBIN 22.6 pg (25.0-35.0); MEAN CORPUSCULAR HGB CONC 29.4 g/dl (31.0-37.0); MEAN PLATELET VOLUME 9.8 fl (7.0-11.0); MONO # 0.4 (0.1-0.6); MONO % 5.8 % (1.0-6.0); PLATELET COUNT 348 10^3/uL (120.0-450.0); RBC 3.85 10^6/uL (3.5-6.1); RED CELL DISTRIBUTION WIDTH 26.2 % (11.5-14.5); WHITE BLOOD COUNT 7.6 10^3/uL (4.5-11.0)
[2018-09-11] MEDS: Insulin Lispro (humaLOG) LOW Coverage SC SCH ×4 (07:53→21:56)
[2018-09-11] MEDS: Insulin Lispro 1 UNITS/0.01 ML SC SCH ×3 (07:58→17:18)
[2018-09-11 08:07] LABS: BLOOD UREA NITROGEN 30 mg/dL (7-21); CALCIUM 8.1 mg/dL (8.4-10.5); GFR NON-AFRICAN AMERICAN > 60
--- NOTE | 2018-09-11 08:15 | PN ---
DATE: 09/09/2018 SUBJECTIVE: The patient is seen lying in bed on telemetry. She is comfortable. Her edema is improved and her dyspnea has improved as well. CURRENT MEDICATIONS: Include Mucomyst, aspirin, Brovana, albuterol, insulin, Lasix 40 mg IV twice a day, metoprolol 25 mg twice a day, atorvastatin 40 mg daily, Lovenox, Lyrica, Maxipime, Protonix, potassium, Pulmicort, Zaroxolyn 5 mg daily, Solu-Medrol 40 mg every 12 hours, and Synthroid. OBJECTIVE: GENERAL: She is a overweight middle-aged woman. VITAL SIGNS: Her blood pressure is 130/76 with pulse of 70 in sinus, respirations are 16 and she is afebrile. HEENT: No JVD. CHEST: Bilateral scattered rhonchi heard. No wheezes noted. HEART: PMI displaced laterally with a systolic murmur at the lower left sternal border. ABDOMEN: Soft, obese, and nontender with normoactive bowel sounds. EXTREMITIES: 2+ leg edema. DIAGNOSTIC DATA: Potassium is 4.3, BUN and creatinine 28 and 0.7, glucose 274. White count 7.1, hemoglobin and hematocrit 9.5 and 32.0 with platelet count of 357,000. IMPRESSION: 1. Apparent right apical pneumonia, on antibiotics. 2. Decompensated congestive heart failure, acute on chronic combined systolic and diastolic. 3. Advanced lung cancer, undergoing radiation therapy. 4. Rest as noted. RECOMMENDATIONS: IV Lasix and oral Zaroxolyn will be continued for the next several days to increase with fluid mobilization. Labs will be monitored. Continue antibiotics and bronchodilator therapy as advised. We will continue to follow and make further recommendations as appropriate. Vidal Fong MD
[2018-09-11 08:33] LABS: BAND 1 % (0-2); LYMPHOCYTE 1 % (22.0-35.0); METAMYELOCYTE 1 %; MONOCYTE 1 % (1.0-6.0); NEUTROPHIL 96 % (50.0-70.0); PLATELET ESTIMATE NORMAL (NORMAL)
[2018-09-11] MEDS: Albuterol-Ipratrop 3 mg / 0.5 (3 ml) UD IH PRN (08:49)
[2018-09-11] MEDS: Budesonide 0.25 mg/2 ml Inhal Susp UD IH SCH ×2 (08:49→20:39)
[2018-09-11] MEDS: Arformoterol 15 mcg/2 ml Inh Sol IH SCH ×2 (08:49→20:38)
[2018-09-11] MEDS: Acetylcysteine 20% Inhal Soln (4ml) INH SCH ×2 (08:49→20:38)
--- NOTE | 2018-09-11 09:12 | CP.PCM.PN ---
Subjective - Date & Time of Evaluation Date of Evaluation: 09/11/18 Time of Evaluation: 09:01 - Subjective Subjective: PGY-2 heme/onc progress note No acute events noted overnight. Patient slept with CPAP overnight and this morning switched to NC 5L. Stated she is overall doing well - still c/o of sob on ambulation to bathroom. Stated swelling still there but decreased. No sob at rest. Otherwise no issues. Denied GI issues, abd pain, cp, f/c. Objective - Vital Signs/Intake and Output Vital Signs (last 24 hours): Temp Pulse Resp BP Pulse Ox 97.8 F 60 20 120/62 93 L 09/11/18 06:00 09/11/18 06:00 09/11/18 06:00 09/11/18 06:00 09/11/18 06:00 Intake and Output: 09/11/18 09/11/18 06:59 18:59 Intake Total 2240 Balance 2240 - Medications Medications: Current Medications Acetylcysteine (Acetylcysteine 20%) 3 ml INH BIDRESP [facility] Last Admin: 09/11/18 08:49 Dose: 3 ml Albuterol/Ipratropium (Duoneb 3 Mg/0.5 Mg (3 Ml) Ud) 3 ml IH [id number] PRN PRN Reason: Shortness of Breath Last Admin: 09/11/18 08:49 Dose: 3 ml Arformoterol Tartrate (Brovana) 15 mcg IH [id number] [facility] Last Admin: 09/11/18 08:49 Dose: 15 mcg Aspirin (Aspirin Chewable) 81 mg PO DAILY [facility] Last Admin: 09/10/18 09:42 Dose: 81 mg Atorvastatin Calcium (Lipitor) 40 mg PO DAILY [facility] Last Admin: 09/10/18 09:43 Dose: 40 mg Budesonide (Pulmicort Respules) 0.25 mg IH [id number] [facility] Last Admin: 09/11/18 08:49 Dose: 0.25 mg Dextrose (Dextrose 50% Inj) 0 ml IV STAT PRN; Protocol PRN Reason: Hypoglycemia Protocol Enoxaparin Sodium (Lovenox) 40 mg SC DAILY [facility]; Protocol Last Admin: 09/10/18 09:42 Dose: 40 mg Ferrous Sulfate (Feosol) 324 mg PO BID [facility] Last Admin: 09/10/18 17:45 Dose: 324 mg Furosemide (Lasix) 40 mg IVP BID [facility] Last Admin: 09/10/18 17:45 Dose: 40 mg Home Med (Home Med) 1 unit PO BID [facility] Last Admin: 09/10/18 17:46 Dose: 1 unit Dextrose (Dextrose 5% In Water 1000 Ml) 1,000 mls @ 0 mls/hr IV .Q0M PRN; Protocol PRN Reason: Hypoglycemia Protocol Trimethoprim/Sulfamethoxazole (240 mg/ Dextrose) 500 mls @ 250 mls/hr IVPB Q8H [facility]; Protocol Stop: 09/23/18 14:46 Last Admin: 09/11/18 05:44 Dose: 250 mls/hr Insulin Detemir (Levemir) 34 unit SC HS [facility] Insulin Human Lispro (Humalog Low) 0 units SC ACHS [facility]; Protocol Last Admin: 09/11/18 07:53 Dose: Not Given Insulin Human Lispro (Humalog) 14 units SC AC [facility] Levothyroxine Sodium (Synthroid) 125 mcg PO DAILY [facility] Last Admin: 09/10/18 09:42 Dose: 125 mcg Methylprednisolone (Solu-Medrol) 40 mg IVP Q12 [facility] Last Admin: 09/10/18 21:51 Dose: 40 mg Metolazone (Zaroxolyn) 5 mg PO DAILY [facility] Stop: 09/11/18 10:01 Last Admin: 09/10/18 09:42 Dose: 5 mg Metoprolol Tartrate (Lopressor) 25 mg PO BID [facility] Last Admin: 09/05/18 18:03 Dose: Not Given Pantoprazole Sodium (Protonix Ec Tab) 40 mg PO DAILY [facility] Last Admin: 09/10/18 09:42 Dose: 40 mg Potassium Chloride (Potassium Chloride Oral Soln) 20 meq PO BID [facility] Stop: 09/11/18 10:01 Last Admin: 09/10/18 17:45 Dose: 20 meq Pregabalin (Lyrica) 25 mg PO BID [facility] Last Admin: 09/05/18 18:03 Dose: Not Given Spironolactone (Aldactone) 25 mg PO BID [facility] Last Admin: 09/10/18 17:45 Dose: 25 mg - Labs Labs: 09/11/18 07:00 09/11/18 07:00 PT 13.6 SECONDS (9.4-12.5) H 01/22/19 11:30 INR 1.18 09/05/18 11:30 APTT 23.5 Seconds (25.1-36.5) L 09/05/18 11:30 - Additional Findings Additional findings: - Constitutional Appears: Well, Non-toxic, No Acute Distress - Head Exam Head Exam: ATRAUMATIC, NORMAL INSPECTION - Eye Exam Eye Exam: EOMI, Normal appearance, PERRL. absent: Scleral icterus - ENT Exam ENT Exam: Mucous Membranes Moist - Respiratory Exam Respiratory Exam: Wheezes, NORMAL BREATHING PATTERN - Cardiovascular Exam Cardiovascular Exam: Tachycardia, REGULAR RHYTHM, +S1, +S2. absent: JVD - GI/Abdominal Exam GI & Abdominal Exam: Normal Bowel Sounds, Soft. absent: Tenderness - Extremities Exam Extremities exam: Positive for: normal capillary refill, pedal edema, pedal pulses present - Neurological Exam Neurological exam: Alert, Oriented x3 - Psychiatric Exam Psychiatric exam: Normal Affect - Skin Skin Exam: Dry, Normal Color, Warm Assessment and Plan - Assessment and Plan (Free Text) Plan: Mrs White is a 68 year old female with a PMHx of unresectable stage III NSCLC with an ALK mutation, COPD, CHF, ASCVD, hx of colon cancer with resection stage 2, ID, AFib (now resolved), anemia of chronic disease, low vitamin D, obesity who present for shortness of breath and dry cough: #Right Upper Lobe Infiltrate 2/2 Radiation Induced or Superimposed HCAP #unresectable stage IIIb non-small cell carcinoma of the lung, currently on radiation #Iron Deficiency Anemia #sleep apnea syndrome #morbid obesity #right-sided heart failure #Hx of NSTEMI -currently on radiation (with 1 session left) to open up the passage of the right mainstem; still waiting for results from [employer] assay for next generation sequencing from Dr Hobbs's office -to treat her shortness of breath as well as LE edema we'll give her brovana 15mcg ih q12h, budesonide 0.25mg ih q12h, duoneb q4h prn, acetylcysteine 3ml ih bid, lasix 40mg ivp bid, solumedrol 20mg ivp q12h, aldactone 25mg po bid, potassium 20meq po bid, metolazone 5mg po qd for 3 days (started 09/11) * it appears everytime she has her lasix discontinued or reduced she has a re- accumulation of fluid -continue home meds lipitor 40mg po qd, synthroid 125mcg po qd, metoprolol tartrate 25mg po bid (on hold), pregabalin 25mg po bid (on hold), aspirin 81mg po qd, crizotinib 250mg po bid (to treat her lung cancer) -empiric abx coverage wth cefepime 2g ivp q8h (started 09/05) now discontinued, blood cx negative up to date, procalc negative, now on sulfamethoxazole/trimethoprim 240mg ivpb q8h (started 09/09) - we'll need to monitor her kidney function * f/u adenovirus pcr, aspergillus testing, cmv pcr, cryptococcus ag, ebg ab, fungitell (1-3) b-d glucan, parainfluenza virus, rsv ag -chest CT w/o contrast 09/08: There is a diffuse alveolar infiltrate in both upper lobes and the right lower lobe. There is a patchy infiltrate in the left lower lobe. Findings are most consistent with pneumonia. There is a 2 x 3.4 cm mass in the right lower lobe adjacent to the inferior hilum. Mediastinal adenopathy * waiting on Dr Sarah Sinha's input regarding CT findings - Dr Adames to discuss with Dr Sinha regarding etiology of her recurrent pulmonary distress -insulin levemir 34u schs and lispro 14u sc ac -ppx with lovenox 40mg sc qd and protonix 40mg po qd -cpap while sleeping -head of bed at 30 degrees -iron 17, tibc 222, %sat 8, ferritin level 154, b12 normal and folate normal, she is on feosol 324mg po bid -pulmonary consult, Dr Feliz and cardio consult, Dr Perea, ID Dr Rooney, and Nephrology consult Dr Jang for fluid management Dispo: patient accepted to TCU once medically cleared Seen and discussed with Dr Adames
[2018-09-11] MEDS: Pantoprazole 40 mg EC Tab PO SCH (10:32)
[2018-09-11] MEDS: metOLazone 5 MG TAB PO SCH ×2 (10:32→11:08)
[2018-09-11] MEDS: Levothyroxine 125 MCG TAB PO SCH (10:32)
[2018-09-11] MEDS: Enoxaparin 40 mg Syringe SC SCH (10:33)
[2018-09-11] MEDS: Potassium Chloride 20 mEq/15 ml LIQ UD PO SCH (10:33)
[2018-09-11] MEDS: MethylPREDNISolone 40 mg Vial IVP SCH ×2 (10:34→21:56)
[2018-09-11] MEDS: CRIZOTINIB 250 MG PO SCH ×2 (10:35→17:17)
--- NOTE | 2018-09-11 12:37 | PN ---
DATE: 09/11/2018 SUBJECTIVE: The patient is seen sitting in a chair on telemetry. She continues to have exertional dyspnea and her peripheral edema does persist. CURRENT MEDICATIONS: Include Aldactone 25 mg b.i.d., aspirin, Brovana, DuoNeb inhaler, iron supplement, insulin, Lasix 40 mg IV b.i.d., Lipitor 40 mg daily, metoprolol 25 mg b.i.d., Lovenox, Protonix, Pulmicort, Solu-Medrol, and Synthroid. OBJECTIVE: GENERAL: She is an obese, middle-aged woman. VITAL SIGNS: Blood pressure is 132/70 with pulse of 60 in sinus, respirations 14. She is afebrile. HEENT: No JVD. CHEST: Bilateral scattered rhonchi with occasional expiratory wheezing. HEART: PMI displaced laterally with systolic murmur at the left sternal border. ABDOMEN: Soft, obese, nontender with normoactive sounds. EXTREMITIES: Reveal 2+ edema to the knees. DIAGNOSTIC DATA: Potassium 4, sodium is 130, BUN and creatinine 30 and 0.9. White count 7.6, hemoglobin and hematocrit 8.7 and 29.6 with platelet count of 348,000. IMPRESSION: 1. Decompensated congestive heart failure, right greater than left, [id number] with combined systolic and diastolic components. 2. Advanced lung cancer. 3. Right apical pneumonia. 4. Chronic obesity. 5. Persistent anemia. RECOMMENDATIONS: Her current regimen will continue for now and Zaroxolyn will be continued for additional several days in attempts to improve diuresis. Compression stocking use is advised if tolerated as well. Leg elevation when seated is recommended. Sodium and fluid friction will continue. We will continue to follow and make further recommendations as appropriate. Vidal Fong MD
--- NOTE | 2018-09-11 13:21 | PN ---
DATE: 09/11/2018 PULMONARY PROGRESS NOTE REFERRING PHYSICIAN: Gerard Gibson MD SUBJECTIVE: The patient is sitting in chair in room. No acute distress. No overnight events reported. The patient does report having shortness of breath with exertion, periodic cough. No headache, rhinitis, cough, shortness of breath, chest pain, abdominal pain, nausea, vomiting, diarrhea, leg pain or leg swelling reported. The patient reports wearing CPAP machine last night and tolerating it well. PHYSICAL EXAMINATION GENERAL: No acute distress. VITAL SIGNS: Blood pressure 132/71, pulse 60, temperature 97.8, and oxygen saturation 93%. HEENT: Moist mucous membranes. Mallampati score of 4. Crowded airways. NECK: Supple. No JVD. LUNGS: Scattered rhonchi bilaterally. CARDIOVASCULAR: S1 and S2 audible. ABDOMEN: Soft and nontender. No distension. No organomegaly. EXTREMITIES: Bilateral lower extremity edema. NEUROLOGICAL: Awake, alert, verbal, and follows commands. MEDICATIONS: Reviewed. Mucomyst 3 mL inhalation twice a day, DuoNeb 3 mL inhalation every 4 hours p.r.n., Brovana 15 mcg every 12 hours, aspirin 81 mg daily, Lipitor 40 mg daily, Pulmicort 0.25 mg inhalation every 12 hours, Lovenox 40 mg subcutaneous daily, ferrous sulfate 324 mg twice a day, Lasix 40 mg twice a day, Levemir 34 units subcutaneous at bedtime, Humalog sliding scale a.c. and at bedtime, Humalog 14 units a.c., Synthroid 125 mcg daily, Solu-Medrol 40 mg every 12 hours, metolazone 5 mg daily, Protonix 40 mg daily, Lyrica 25 mg twice a day, Aldactone 25 mg twice a day, and Bactrim 240 mg every 8 hours. LABORATORY DATA: Reviewed. WBC 7.6, RBC 3.85, hemoglobin 8.7, hematocrit 29.6, and platelets 348. Sodium 130, potassium 4.0, chloride 89, carbon dioxide 39, anion gap 6, BUN 30, creatinine 0.9, GFR is greater than 60, POC glucose 346, random glucose is 292 and calcium 8.1. IMPRESSION AND PLAN: Stage IV non-small cell lung cancer, hypothyroidism, colon cancer, high cholesterol, chronic lung disease, alveolar infiltrates on CAT scan, gastroesophageal reflux disease, degenerative joint disease, anemia, history of paroxysmal atrial fibrillation, diastolic dysfunction with heart failure, moderate pulmonary hypertension, and sleep apnea syndrome. Continue antibiotics per Infectious Disease, bilateral positive airway pressure use at bedtime, head of bed elevated at 45 degrees and sleep apnea precautions. Continue inhaled bronchodilators, diuretics, gastric prophylaxis and deep venous thrombosis prophylaxis. Continue compression stockings to bilateral lower extremities. We will decrease Solu-Medrol to 20 mg every 12 hours. This patient was seen and examined with Dr. Feliz. Discussed assessment and plan as described above. Thank you for this consult. We will follow with you. Juan Richardson APN Hussein Feliz MD
[2018-09-11] MEDS: Aluminum Hydroxide/Magnesium 30 ML, DiphenhydrAMINE 75 MG, Lidocaine 2% Viscous 30 ML PO PRN ×2 (13:58→22:06)
[2018-09-11] MEDS: Mupirocin 2% Ointment 15 GM TUBE NS SCH (13:58)
--- NOTE | 2018-09-11 14:59 | CP.PCM.PN ---
Subjective - Date & Time of Evaluation Date of Evaluation: 09/11/18 Time of Evaluation: 14:15 - Subjective Subjective: No fevers, not short of breath at rest but has dyspnea on exertion, no nausea. Objective - Vital Signs/Intake and Output Vital Signs (last 24 hours): Temp Pulse Resp BP Pulse Ox 97.1 F L 73 18 144/69 93 L 09/11/18 12:00 09/11/18 12:00 09/11/18 12:00 09/11/18 12:00 09/11/18 06:00 Intake and Output: 09/11/18 09/11/18 06:59 18:59 Intake Total 2240 Balance 2240 - Medications Medications: Current Medications Acetylcysteine (Acetylcysteine 20%) 3 ml INH BIDRESP [facility] Last Admin: 09/11/18 08:49 Dose: 3 ml Albuterol/Ipratropium (Duoneb 3 Mg/0.5 Mg (3 Ml) Ud) 3 ml IH [id number] PRN PRN Reason: Shortness of Breath Last Admin: 09/11/18 08:49 Dose: 3 ml Arformoterol Tartrate (Brovana) 15 mcg IH [id number] [facility] Last Admin: 09/11/18 08:49 Dose: 15 mcg Aspirin (Aspirin Chewable) 81 mg PO DAILY [facility] Last Admin: 09/11/18 10:33 Dose: 81 mg Atorvastatin Calcium (Lipitor) 40 mg PO DAILY [facility] Last Admin: 09/11/18 10:32 Dose: 40 mg Budesonide (Pulmicort Respules) 0.25 mg IH [id number] [facility] Last Admin: 09/11/18 08:49 Dose: 0.25 mg Al Hydrox/Mg Hydrox/Simethicone 30 ml/Diphenhydramine HCl 75 mg/Lidocaine 30 ml 0 ml PO Q2H PRN PRN Reason: esophagitis Last Admin: 09/11/18 13:58 Dose: 5 ml Dextrose (Dextrose 50% Inj) 0 ml IV STAT PRN; Protocol PRN Reason: Hypoglycemia Protocol Enoxaparin Sodium (Lovenox) 40 mg SC DAILY [facility]; Protocol Last Admin: 09/11/18 10:33 Dose: 40 mg Ferrous Sulfate (Feosol) 324 mg PO BID [facility] Last Admin: 09/11/18 10:31 Dose: 324 mg Furosemide (Lasix) 40 mg IVP BID [facility] Last Admin: 09/11/18 10:32 Dose: 40 mg Home Med (Home Med) 1 unit PO BID [facility] Last Admin: 09/11/18 10:35 Dose: 1 unit Dextrose (Dextrose 5% In Water 1000 Ml) 1,000 mls @ 0 mls/hr IV .Q0M PRN; Protocol PRN Reason: Hypoglycemia Protocol Trimethoprim/Sulfamethoxazole (240 mg/ Dextrose) 500 mls @ 250 mls/hr IVPB Q8H [facility]; Protocol Stop: 09/23/18 14:46 Last Admin: 09/11/18 05:44 Dose: 250 mls/hr Insulin Detemir (Levemir) 34 unit SC HS [facility] Insulin Human Lispro (Humalog Low) 0 units SC ACHS [facility]; Protocol Last Admin: 09/11/18 12:19 Dose: Not Given Insulin Human Lispro (Humalog) 14 units SC AC [facility] Last Admin: 09/11/18 12:27 Dose: 14 units Levothyroxine Sodium (Synthroid) 125 mcg PO DAILY [facility] Last Admin: 09/11/18 10:32 Dose: 125 mcg Methylprednisolone (Solu-Medrol) 20 mg IVP Q12 [facility] Metolazone (Zaroxolyn) 5 mg PO DAILY [facility] Stop: 09/14/18 11:16 Last Admin: 09/11/18 11:08 Dose: Not Given Metoprolol Tartrate (Lopressor) 25 mg PO BID [facility] Last Admin: 09/05/18 18:03 Dose: Not Given Mupirocin (Bactroban Ointment) 0 gm NS DAILY [facility] Stop: 09/20/18 10:01 Last Admin: 09/11/18 13:58 Dose: 1 applic Pantoprazole Sodium (Protonix Ec Tab) 40 mg PO DAILY [facility] Last Admin: 09/11/18 10:32 Dose: 40 mg Pregabalin (Lyrica) 25 mg PO BID [facility] Last Admin: 09/05/18 18:03 Dose: Not Given Spironolactone (Aldactone) 25 mg PO BID [facility] Last Admin: 09/11/18 10:32 Dose: 25 mg - Labs Labs: 09/11/18 07:00 09/11/18 07:00 PT 13.6 SECONDS (9.4-12.5) H 09/05/18 11:30 INR 1.18 09/05/18 11:30 APTT 23.5 Seconds (25.1-36.5) L 09/05/18 11:30 - Constitutional Appears: Chronically Ill - Head Exam Head Exam: NORMAL INSPECTION - ENT Exam ENT Exam: Mucous Membranes Moist - Neck Exam Neck Exam: absent: Meningismus - Respiratory Exam Respiratory Exam: Decreased Breath Sounds - Cardiovascular Exam Cardiovascular Exam: +S1, +S2 - GI/Abdominal Exam GI & Abdominal Exam: Soft. absent: Tenderness Assessment and Plan - Assessment and Plan (Free Text) Plan: Assessment bilteral alveolar infiltrates, R/O atypical pneumonia history of probable right sided HCAP associated with lung mass lung cancer, non-small cell, stage 4 morbid obesity with BMI 40 dyslipidemia colon cancer Plan continue Bactrim IV day 2 and will follow up Fungitell, Galactommanan, Histoplasma test, Aspergillus test, Adenovirus work up, EBV and CMV tests Overall prognosis is poor will continue to monitor clinically
--- NOTE | 2018-09-11 17:09 | PN ---
DATE: 09/11/2018 ENDO FOLLOWUP NOTE LOCATION: Room 269. SUBJECTIVE: This is a 68-year-old female admitted with acute exacerbation of COPD and currently on IV steroid therapy given as Solu-Medrol at 40 mg IV every 12 hours as ordered. Supervening hyperglycemic accelerations are transiently expected and the glucose levels today have ranged from 246 to 359 mg/dL. Her chemistry showed a BUN of 28, sodium 133, potassium 4.4, chloride 90, CO2 of 40, glucose 300, and creatinine 0.9. So, at this time, we will modify once again her basal and bolus insulin regimen and increase the Humalog to 14 units subcutaneously t.i.d. before meals to start today as ordered. We will also increase the basal insulin with Levemir to be given as 34 units subcutaneously at bedtime daily to start tonight. We will titrate incrementally as indicated to optimize metabolic control. We will follow. Crystal Mcgregor MD
--- NOTE | 2018-09-11 18:35 | PN ---
DATE: 09/11/2018 SUBJECTIVE: The patient is seen sitting in chair. She is awake, she is alert. She is comfortable. She still has 3+ pitting edema of the lower extremities. PHYSICAL EXAMINATION: GENERAL: Obese, elderly lady sitting in chair. VITAL SIGNS: Blood pressure 144/69, heart rate 73, respiratory rate 18, temperature 97.1. HEENT: Normocephalic, atraumatic, positive pallor. NECK: Supple. No JVD. CARDIOPULMONARY: S1 and S2, regular rate and rhythm, no murmur, no rub. LUNGS: Bilateral equal entry, bilateral equal expansion. ABDOMEN: Obese, distended, soft, nontender, bowel sounds present. EXTREMITIES: 3+ pitting edema of the lower extremities. INTAKE AND OUTPUT: [id number]/not charted. LABORATORY DATA: WBC 7.6, hemoglobin 8.7, hematocrit 29.6, platelets . Sodium 130, potassium 4.0, chloride 89, CO2 39, BUN 30, creatinine 0.9, glucose 292, calcium 8.1. Urinalysis yellow, slightly cloudy, pH 7.0, specific gravity 1010, protein negative, glucose greater than 1000, blood large, leukocyte esterase trace, RBCs too numerous to count WBCs 5 to 10. Blood culture, no growth. CURRENT MEDICATIONS: Mucomyst, Aldactone 25 b.i.d., aspirin, Brovana, DuoNeb, Feosol, insulin, Lasix 40 IV every 12, Levemir, Lipitor, Lopressor, Lovenox, Lyrica, Protonix, Pulmicort, Solu-Medrol, Synthroid, Bactrim 250 every 8. ASSESSMENT AND PLAN: 1. 3+ pitting edema,? Etiology. No proteinuria, congestive heart failure,?, related to chemotherapy agent ?. 2. Multilobar pneumonia, PCP versus histoplasmosis versus Aspergillus and Cryptococcus. 3. Stage IV non-small cell cancer of the lung. 4. History of colon cancer, status post resection. 5. Hyperlipidemia. 6. Morbid obesity. PLAN: 1. Switch Bactrim to p.o. if okay with ID. 2. Keep O's greater than I's. 3. Continue Lasix. 4. Continue spironolactone. 5. Continue metolazone. 6. Daily weights. 7. Check urine shows protein. Tamiko Jang MD
[2018-09-11 19:20] LABS: HEMOGLOBIN 9.3 g/dL (12.0-16.0); MEAN CELL VOLUME 76.6 fl (80.0-105.0); MEAN CORPUSCULAR HEMOGLOBIN 22.9 pg (25.0-35.0); MEAN CORPUSCULAR HGB CONC 29.9 g/dl (31.0-37.0); MEAN PLATELET VOLUME 9.2 fl (7.0-11.0); RBC 4.06 10^6/uL (3.5-6.1); RED CELL DISTRIBUTION WIDTH 26.3 % (11.5-14.5); WHITE BLOOD COUNT 9.7 10^3/uL (4.5-11.0)
[2018-09-11] MEDS ORDERED: Insulin Detemir 100 units/ml Vial (Levemir) SC SCH (22:00)
--- NOTE | 2018-09-12 05:17 | PN ---
DATE: 09/12/2018 ENDOCRINOLOGY FOLLOWUP NOTE LOCATION: In room 269. SUBJECTIVE: This is a 68-year-old female with recent acute exacerbation of COPD, currently on IV steroid therapy given as Solu-Medrol at 40 mg IV every 12 hours as ordered, and is now being followed closely for metabolic management. Her glycemic levels are fluctuating as expected from the transient increased insulin resistance, afforded by steroid therapy as noted. This should resolve accordingly as the steroids are tapered down. Her glucose values have ranged from 228-280 and 310 mg per dL. Her chemistry showed a BUN of 30, sodium 130, potassium 4, chloride 89, CO2 of 39, glucose 292, and creatinine 0.9. So at this time, we will modify once again her basal and bolus insulin regimen and increase the Humalog to 14 units t.i.d. before meals as ordered. We will also increase the basal insulin to Levemir given as 34 units subcu at bedtime daily to start tonight. We will titrate incrementally as indicated to optimize metabolic control. We will follow. Crystal Mcgregor MD
[2018-09-12] MEDS: SULFAMETHOXAZOLE IVPB SCH (05:45)
[2018-09-12] MEDS: TRIMETHOPRIM IVPB SCH (05:45)
[2018-09-12] MEDS: DEXTROSE 5% IVPB SCH (05:45)
[2018-09-12] MEDS: WATER IVPB SCH (05:45)
[2018-09-12 06:25] VITALS: O2SAT 96
[2018-09-12] MEDS: Acetylcysteine 20% Inhal Soln (4ml) INH SCH (07:35)
[2018-09-12] MEDS: Budesonide 0.25 mg/2 ml Inhal Susp UD IH SCH (07:36)
[2018-09-12] MEDS: Arformoterol 15 mcg/2 ml Inh Sol IH SCH (07:36)
[2018-09-12 07:50] LABS: BASO # 0.01 K/mm3 (0.0-2.0); BASO % 0.1 % (0.0-3.0); HEMOGLOBIN 9.2 g/dL (12.0-16.0); LYMPH # 0.7 (1.2-3.4); LYMPH % 6.5 % (22.0-35.0); MEAN CELL VOLUME 76.5 fl (80.0-105.0); MEAN CORPUSCULAR HGB CONC 30.1 g/dl (31.0-37.0); MEAN PLATELET VOLUME 9.7 fl (7.0-11.0); MONO # 0.3 (0.1-0.6); MONO % 2.6 % (1.0-6.0); RED CELL DISTRIBUTION WIDTH 25.8 % (11.5-14.5); WHITE BLOOD COUNT 10.3 10^3/uL (4.5-11.0)
[2018-09-12] MEDS: Insulin Lispro 1 UNITS/0.01 ML SC SCH ×2 (07:50→12:15)
[2018-09-12 07:59] LABS: ALB/GLOB RATIO 0.8 (1.1-1.8); ALBUMIN 2.5 g/dL (3.0-4.8); ALT/SGPT 75 U/L (7-56); AST/SGOT 31 U/L (14-36); BLOOD UREA NITROGEN 30 mg/dL (7-21); CALCIUM 8.1 mg/dL (8.4-10.5); GFR NON-AFRICAN AMERICAN > 60
[2018-09-12] MEDS: Insulin Lispro (humaLOG) LOW Coverage SC SCH ×2 (09:06→12:24)
[2018-09-12] MEDS: Aluminum Hydroxide/Magnesium 30 ML, DiphenhydrAMINE 75 MG, Lidocaine 2% Viscous 30 ML PO PRN (09:07)
[2018-09-12] MEDS: Mupirocin 2% Ointment 15 GM TUBE NS SCH (09:09)
[2018-09-12] MEDS: MethylPREDNISolone 40 mg Vial IVP SCH (09:16)
[2018-09-12] MEDS: Pantoprazole 40 mg EC Tab PO SCH (09:17)
[2018-09-12] MEDS: metOLazone 5 MG TAB PO SCH (09:19)
[2018-09-12] MEDS: Levothyroxine 125 MCG TAB PO SCH (09:22)
[2018-09-12] MEDS: Enoxaparin 40 mg Syringe SC SCH (09:26)
[2018-09-12] MEDS: CRIZOTINIB 250 MG PO SCH (09:27)
--- NOTE | 2018-09-12 10:53 | PN ---
DATE: 09/12/2018 PULMONARY PROGRESS NOTE REFERRING PHYSICIAN: Gerard Gibson MD SUBJECTIVE: The patient is sitting up in bed. No acute distress. No overnight events reported. The patient reports having shortness of breath with exertion, otherwise, feeling well. Today is her last day of radiation. No headache, rhinitis, cough, chest pain, abdominal pain, nausea, vomiting, diarrhea, or leg pain reported. Leg swelling continues with slight improvement. The patient reports wearing CPAP machine last night. OBJECTIVE: GENERAL: No acute distress. VITAL SIGNS: Blood pressure 145/65, pulse 74, temperature 97.9, and oxygen saturation 96% via nasal cannula. HEENT: Moist mucous membranes. Mallampati score of 4. Crowded airway. NECK: Supple. No JVD. LUNGS: Scattered rhonchi bilaterally. CARDIOVASCULAR: S1 and S2 audible. ABDOMEN: Soft and nontender. No distension. No organomegaly. EXTREMITIES: Bilateral lower extremity edema. NEUROLOGICAL: Awake, alert, and verbal. Follows commands. MEDICATIONS: Reviewed. Mucomyst 3 mL inhalation twice a day, DuoNeb 3 mL inhalation every 4 hours p.r.n., Brovana 15 mcg every 12 hours, aspirin 81 mg daily, Lipitor 40 mg daily, Pulmicort 0.25 mg inhalation every 12 hours, Lovenox 40 mg subcutaneous daily, ferrous sulfate 324 mg twice a day, Lasix 40 mg IV push twice a day, Levemir 34 units subcutaneous at bedtime, Humalog sliding scale before meals and at bedtime, Humalog 14 units subcutaneous before meals, Synthroid 125 mcg daily, Solu-Medrol 20 mg every 12 hours, metolazone 5 mg daily, Lopressor 25 mg twice a day, Bactroban nasally daily, Protonix 40 mg daily, Lyrica 25 mg twice a day, Aldactone 25 mg twice a day, and Bactrim 240 mg every 8 hours. LABORATORY DATA: Reviewed. WBC 10.3, RBC 4, hemoglobin 9.2, hematocrit 30.6, and platelets 364. Sodium 128, potassium 4.3, chloride 86, carbon dioxide 40, anion gap 7, BUN 30, creatinine 0.8, GFR is greater than 60, POC glucose 345, random glucose 284, calcium 8.1, total bilirubin 0.3, AST 31, ALT 75, alkaline phosphatase 129, total protein 5.4, albumin 2.5, globulin 3.0, and albumin-globulin ratio 0.8. IMPRESSION AND PLAN: Stage IV non-small cell lung cancer, hypothyroidism, colon cancer, high cholesterol, chronic lung disease, alveolar infiltrates on CAT scan, gastroesophageal reflux disease, degenerative joint disease, anemia, history of paroxysmal atrial fibrillation, diastolic dysfunction with heart failure, moderate pulmonary hypertension, and sleep apnea syndrome. Continue antibiotic therapy per Infectious Disease, sleep apnea precautions, head of bed elevated at 45 degrees, and bilateral positive airway pressure use at bedtime. Continue inhaled bronchodilators, diuretics, gastric prophylaxis, and deep venous thrombosis prophylaxis. Continue steroids at current dosage; we will decrease in another day or so. Continue compression stockings to bilateral lower extremities for edema. This patient was seen and examined with Dr. Feliz. Discussed assessment and plan as described above. Thank you for this consult. We will follow with you. Juan Richardson APN Hussein Feliz MD DAVID
--- NOTE | 2018-09-12 11:02 | CP.PCM.DIS ---
Provider - Provider Date of Admission: 09/05/18 13:08 Attending physician: Gerard Gibson MD Primary care physician: PMD: Dr Adames Consults: 09/05/18 13:07 Consult [Physician Consult] Stat Comment: call Consulting Provider: Vidal Fong Consulting Physician: Vidal Fong Reason for Consult: sob Consult [Physician Consult] Stat Comment: call Consulting Provider: Hussein Feliz Consulting Physician: Hussein Feliz Reason for Consult: sob 09/05/18 20:44 Nursing Referral for Palliative Care Routine Comment: jessica score Physician Instructions: Reason For Exam: eval Social Work Referral Routine Comment: d/c plan Physician Instructions: Reason For Exam: eval 09/05/18 21:14 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 Routine Comment: pneumonia Physician Instructions: Reason For Exam: eval Transition In Care/Readmission Reduction Routine Comment: pneumonia,hypoxia Physician Instructions: Reason For Exam: eval 09/06/18 09:35 Physician Consult Routine Comment: Consulting Provider: Sarah Sinha Consulting Physician: Sarah Sinha Reason for Consult: radiation 09/08/18 11:33 Nephrology Consult Routine Comment: Consulting Provider: Tamiko Jang Consulting Physician: Tamiko Jang Reason for Consult: fluid management 09/08/18 12:48 TCU [Evaluation for TRCU] Routine Comment: Physician Instructions: Reason For Exam: DECONDITIONING 09/08/18 16:20 Physician Consult Routine Comment: Consulting Provider: Crystal Mcgregor Consulting Physician: Crystal Mcgregor Reason for Consult: hyperglycemia 09/09/18 10:42 Consult [Physician Consult] Routine Comment: Consulting Provider: Bayron Rooney Consulting Physician: Bayron Rooney Reason for Consult: pneumonia Time Spent in preparation of Discharge (in minutes): 42 Diagnosis - Discharge Diagnosis (1) Dyspnea Status: Resolved Priority: High (2) Pneumonia Status: Suspected Priority: High (3) Non-small cell lung cancer (NSCLC) Status: Chronic Priority: High Hospital Course - Lab Results Lab Results: Micro Results 09/05/18 12:00 Blood-Venous Blood Culture - Final NO GROWTH AFTER 5 DAYS 09/05/18 12:00 Blood-Venous Gram Stain - Final TEST NOT PERFORMED 09/05/18 11:30 Blood-Venous Blood Culture - Final NO GROWTH AFTER 5 DAYS 09/05/18 11:30 Blood-Venous Gram Stain - Final TEST NOT PERFORMED Most Recent Lab Values WBC 10.3 10^3/uL (4.5-11.0) 09/12/18 07:30 RBC 4.00 10^6/uL (3.5-6.1) 09/12/18 07:30 Hgb 9.2 g/dL (12.0-16.0) L 09/12/18 07:30 Hct 30.6 % (36.0-48.0) L 09/12/18 07:30 MCV 76.5 fl (80.0-105.0) L 09/12/18 07:30 MCH 23.0 pg (25.0-35.0) L 09/12/18 07: MCHC 30.1 g/dl (31.0-37.0) L 09/12/18 07:30 RDW 25.8 % (11.5-14.5) H 09/12/18 07:30 Plt Count 364 10^3/uL (120.0-450.0) 09/12/18 07:30 MPV 9.7 fl (7.0-11.0) 09/12/18 07:30 Gran % 90.8 % (50.0-68.0) H 09/08/18 07:00 Neut % (Auto) 90.8 % (50.0-68.0) H 09/12/18 07:30 Lymph % (Auto) 6.5 % (22.0-35.0) L 09/12/18 07:30 Dixie % (Auto) 2.6 % (1.0-6.0) 09/12/18 07:30 Eos % (Auto) 0.0 % (1.5-5.0) L 09/12/18 07:30 Baso % (Auto) 0.1 % (0.0-3.0) 09/12/18 07:30 Gran # 7.01 (1.4-6.5) H 09/08/18 07:00 Lymph # (Auto) 0.7 (1.2-3.4) L 09/12/18 07:30 Dixie # (Auto) 0.3 (0.1-0.6) 09/12/18 07:30 Eos # (Auto) 0.0 (0.0-0.7) 09/12/18 07:30 Baso # (Auto) 0.01 K/mm3 (0.0-2.0) 09/12/18 07:30 Absolute Neuts (auto) 9.30 (1.4-6.5) H 09/12/18 07:30 Neutrophils % (Manual) 96 % (50.0-70.0) H 09/11/18 07:00 Band Neutrophils % 1 % (0-2) 09/11/18 07:00 Lymphocytes % (Manual) 1 % (22.0-35.0) L 09/11/18 07:00 Monocytes % (Manual) 1 % (1.0-6.0) 09/11/18 07:00 Metamyelocytes % 1 % 09/11/18 07:00 Nucleated RBC % 1 % 09/07/18 06:10 Platelet Evaluation Normal (NORMAL) 09/11/18 07:00 Large Platelets Present 09/07/18 06:10 Microcytosis (manual) 1+ 09/07/18 06:10 PT 13.6 SECONDS (9.4-12.5) H 09/05/18 11:30 INR 1.18 09/05/18 11:30 APTT 23.5 Seconds (25.1-36.5) L 09/05/18 11:30 pCO2 36 mm/Hg (35-45) 09/05/18 11:15 pO2 52.0 mm/Hg (80-100) L 09/05/18 11:15 HCO3 25.0 mmol/L (21-28) 09/05/18 11:15 ABG pH 7.45 (7.35-7.45) 09/05/18 11:15 ABG Total CO2 26.1 mmol.L (22-28) 09/05/18 11:15 ABG O2 Saturation 89.4 % (95-98) L 09/05/18 11:15 ABG O2 Content 10.9 ML/dl (15-23) L 09/05/18 11:15 ABG Base Excess 1.1 mmol/L (-2.0-3.0) 09/05/18 11:15 ABG Hemoglobin 8.7 g/dL (11.7-17.4) L 09/05/18 11:15 ABG Carboxyhemoglobin 1.0 % (0.5-1.5) 09/05/18 11:15 POC ABG HHb (Measured) 10.5 % (0-5) H 09/05/18 11:15 ABG Methemoglobin 0.0 % (0.0-3.0) 09/05/18 11:15 ABG O2 Capacity 12.2 mL/dl (16-24) L 09/05/18 11:15 Hgb O2 Saturation 88.5 % (95.0-98.0) L 09/05/18 11:15 FiO2 36.0 % 09/05/18 11:15 Sodium 128 mmol/L (132-148) L 09/12/18 07:30 Potassium 4.3 mmol/L (3.6-5.0) 09/12/18 07:30 Chloride 86 mmol/L (98-107) L 09/12/18 07:30 Carbon Dioxide 40 mmol/L (21-33) H 09/12/18 07:30 Anion Gap 7 (10-20) L 09/12/18 07:30 BUN 30 mg/dL (7-21) H 09/12/18 07:30 Creatinine 0.8 mg/dl (0.7-1.2) 09/12/18 07:30 Est GFR ( Amer) > 60 09/12/18 07:30 Est GFR (Non-Af Amer) > 60 09/12/18 07:30 POC Glucose (mg/dL) 345 mg/dL (65-110) H 09/12/18 02:28 Random Glucose 284 mg/dL (70-110) H 09/12/18 07:30 Calcium 8.1 mg/dL (8.4-10.5) L 09/12/18 07:30 Phosphorus 3.6 mg/dL (2.5-4.5) 09/08/18 07:00 Magnesium 1.9 mg/dL (1.7-2.2) 09/08/18 07:00 Iron 17 ug/dL (45-180) L 09/07/18 11:35 TIBC 222 ug/dL (265-497) L 09/07/18 11:35 % Saturation 8 % (20-55) L 09/07/18 11:35 Ferritin 153.0 ng/mL 09/07/18 11:35 Total Bilirubin 0.3 mg/dL (0.2-1.3) 09/12/18 07:30 AST 31 U/L (14-36) 09/12/18 07:30 ALT 75 U/L (7-56) H 09/12/18 07:30 Alkaline Phosphatase 129 U/L (38-126) H 09/12/18 07:30 Lactate Dehydrogenase 1670 U/L (333-699) H 09/05/18 11:30 Total Creatine Kinase 46 U/L (35-230) 09/05/18 11:30 Troponin I < 0.01 ng/mL 09/05/18 11:30 NT-Pro-B Natriuret Pep 198 pg/mL (0-450) 09/10/18 05:00 Total Protein 5.4 g/dL (5.8-8.3) L 09/12/18 07:30 Albumin 2.5 g/dL (3.0-4.8) L 09/12/18 07:30 Globulin 3.0 gm/dL 09/12/18 07:30 Albumin/Globulin Ratio 0.8 (1.1-1.8) L 09/12/18 07:30 Vitamin B12 806 pg/mL (239-931) 09/07/18 11:35 Folate 10.9 ng/mL 09/07/18 11:35 Procalcitonin 0.27 NG/ML (0.19-0.49) 09/09/18 07:00 Free T4 1.35 ng/dL (0.78-2.19) 09/07/18 11:35 TSH 3rd Generation < 0.02 mIU/mL (0.46-4.68) L 09/07/18 11:35 Urine Color Yellow (YELLOW) 09/09/18 15:00 Urine Appearance Slight-cloudy (CLEAR) 09/09/18 15:00 Urine pH 7.0 (4.7-8.0) 09/09/18 15:00 Ur Specific [place] 1.010 (1.005-1.035) 09/09/18 15:00 Urine Protein Negative mg/dL (<30 mg/dL) 09/09/18 15:00 Urine Glucose (UA) >=1000 mg/dL (NEGATIVE) 09/09/18 15:00 Urine Ketones Negative mg/dL (NEGATIVE) 09/09/18 15:00 Urine Blood Large (NEGATIVE) H 09/09/18 15:00 Urine Nitrate Negative (NEGATIVE) 09/09/18 15:00 Urine Bilirubin Negative (NEGATIVE) 09/09/18 15:00 Urine Urobilinogen 0.2 E.U./dL (<1 E.U./dL) 09/09/18 15:00 Ur Leukocyte Esterase Trace Kerrie/uL (NEGATIVE) H 09/09/18 15:00 Urine RBC Tntc /hpf (0-2) H 09/09/18 15:00 Urine WBC 5 - 10 /hpf (0-6) H 09/09/18 15:00 Ur Epithelial Cells 4 - 5 /hpf (0-5) 09/09/18 15:00 Amorphous Sediment Few /hpf (NONE) 09/09/18 15:00 Urine Bacteria Large /hpf (NONE) 09/09/18 15:00 Urine Other Uyeast /hpf 09/09/18 15:00 Cryptococcus Ag Screen Not detected (Not Detected) 09/10/18 05:00 - Hospital Course Hospital Course: Mrs White is a 68 year old female with a PMHx of unresectable stage III NSCLC with an ALK mutation, COPD, CHF, ASCVD, hx of colon cancer with resection stage 2, VT, AFib (now resolved), anemia of chronic disease, low vitamin D, obesity who present for shortness of breath and dry cough for 1 day. She was recently admitted for a very similiar presentation which she recovered from and was sent to TCU from which she went home. She is currently receiving radiation therapy and states she has 5 sessions left. She recently stopped her lasix and prednisone as well as her metoprolol tartrate which was stopped due to lightheadedness (this was started for episodes of SVT which have no resolved). She states her legs are now less swollen. After her recent discharge she did not have have a chance to follow-up with cardio Dr Perea or pulm Dr Feliz. 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, COPD, CHF, ASCVD, hx of colon cancer with resection stage 2, VT, AFib (now resolved), anemia of chronic disease, low vitamin D, obesity PSHx: colon resection, surgery for detached retina Allergies: NKA SocialHx: former smoker FamHx: both parents from age-related illness HOSPITAL COURSE: Mrs White is a 68 year old female with a PMHx of unresectable stage III NSCLC with an ALK mutation, COPD, CHF, ASCVD, hx of colon cancer with resection stage 2, VT, AFib (now resolved), anemia of chronic disease, low vitamin D, obesity who present for shortness of breath and dry cough: #Right Upper Lobe Infiltrate 2/2 Radiation Induced or Superimposed HCAP #unresectable stage IIIb non-small cell carcinoma of the lung, currently on radiation #Iron Deficiency Anemia #sleep apnea syndrome #morbid obesity #right-sided heart failure #Hx of NSTEMI -currently on radiation (with 1 session left) to open up the passage of the right mainstem; still waiting for results from [employer] assay for next generation sequencing from Dr Hobbs's office -to treat her shortness of breath as well as LE edema we'll give her brovana 15mcg ih q12h, budesonide 0.25mg ih q12h, duoneb q4h prn, acetylcysteine 3ml ih bid, lasix 40mg ivp bid, solumedrol 20mg ivp q12h, aldactone 25mg po bid, potassium 20meq po bid, metolazone 5mg po qd for 3 days (started 09/11) * it appears everytime she has her lasix discontinued or reduced she has a re- accumulation of fluid -continue home meds lipitor 40mg po qd, synthroid 125mcg po qd, metoprolol tartrate 25mg po bid (on hold), pregabalin 25mg po bid (on hold), aspirin 81mg po qd, crizotinib 250mg po bid (to treat her lung cancer) -empiric abx coverage wth cefepime 2g ivp q8h (started 09/05) now discontinued, blood cx negative up to date, procalc negative, now on sulfa methoxazole/trimethoprim 240mg ivpb q8h (started 09/09) - we'll need to monitor her kidney function * f/u adenovirus pcr, aspergillus testing, cmv pcr, cryptococcus ag, ebg ab, fungitell (1-3) b-d glucan, parainfluenza virus, rsv ag -chest CT w/o contrast 09/08: There is a diffuse alveolar infiltrate in both upper lobes and the right lower lobe. There is a patchy infiltrate in the left lower lobe. Findings are most consistent with pneumonia. There is a 2 x 3.4 cm mass in the right lower lobe adjacent to the inferior hilum. Mediastinal adenopathy * Dr Sarah Sinha's does not belive her recurrent pulmonary distress is due to radiation -insulin levemir 34u schs and lispro 14u sc ac -ppx with lovenox 40mg sc qd and protonix 40mg po qd -cpap while sleeping -head of bed at 30 degrees -iron 17, tibc 222, %sat 8, ferritin level 154, b12 normal and folate normal, she is on feosol 324mg po bid -pulmonary consult, Dr Feliz and cardio consult, Dr Perea, ID Dr Rooney, and Nephrology consult Dr Jang for fluid management Dispo: patient accepted to TCU once medically cleared Discharge Exam - Head Exam Head Exam: NORMAL INSPECTION - Additional Findings Additional findings: - Constitutional Appears: Well, Non-toxic, No Acute Distress - Head Exam Head Exam: ATRAUMATIC, NORMAL INSPECTION - Eye Exam Eye Exam: EOMI, Normal appearance, PERRL. absent: Scleral icterus - ENT Exam ENT Exam: Mucous Membranes Moist - Respiratory Exam Respiratory Exam: Wheezes, NORMAL BREATHING PATTERN - Cardiovascular Exam Cardiovascular Exam: Tachycardia, REGULAR RHYTHM, +S1, +S2. absent: JVD - GI/Abdominal Exam GI & Abdominal Exam: Normal Bowel Sounds, Soft. absent: Tenderness - Extremities Exam Extremities exam: Positive for: normal capillary refill, pedal edema, pedal pulses present - Neurological Exam Neurological exam: Alert, Oriented x3 - Psychiatric Exam Psychiatric exam: Normal Affect - Skin Skin Exam: Dry, Normal Color, Warm Discharge Plan - Follow Up Plan Condition: FAIR Disposition: REHAB FACILITY/REHAB UNIT Additional Instructions: please continue all current active medications upon transfer to TCU
[2018-09-12 12:37] VITALS: BP 119/73; PULSE 70; RESP 18; TEMP 98.6
--- NOTE | 2018-09-12 13:43 | CP.PCM.PN ---
Subjective - Date & Time of Evaluation Date of Evaluation: 09/12/18 Time of Evaluation: 09:30 - Subjective Subjective: Patient will be transferred to CU today, not short of breath while resting, no fevers. Objective - Vital Signs/Intake and Output Vital Signs (last 24 hours): Temp Pulse Resp BP Pulse Ox 97.1 F L 73 18 144/69 93 L 09/11/18 12:00 09/11/18 12:00 09/11/18 12:00 09/11/18 12:00 09/11/18 06:00 Intake and Output: 09/11/18 09/11/18 06:59 18:59 Intake Total 2240 Balance 2240 - Medications Medications: Current Medications Acetylcysteine (Acetylcysteine 20%) 3 ml INH BIDRESP [facility] Last Admin: 09/11/18 08:49 Dose: 3 ml Albuterol/Ipratropium (Duoneb 3 Mg/0.5 Mg (3 Ml) Ud) 3 ml IH [id number] PRN PRN Reason: Shortness of Breath Last Admin: 09/11/18 08:49 Dose: 3 ml Arformoterol Tartrate (Brovana) 15 mcg IH [id number] [facility] Last Admin: 09/11/18 08:49 Dose: 15 mcg Aspirin (Aspirin Chewable) 81 mg PO DAILY [facility] Last Admin: 09/11/18 10:33 Dose: 81 mg Atorvastatin Calcium (Lipitor) 40 mg PO DAILY [facility] Last Admin: 09/11/18 10:32 Dose: 40 mg Budesonide (Pulmicort Respules) 0.25 mg IH [id number] [facility] Last Admin: 09/11/18 08:49 Dose: 0.25 mg Al Hydrox/Mg Hydrox/Simethicone 30 ml/Diphenhydramine HCl 75 mg/Lidocaine 30 ml 0 ml PO Q2H PRN PRN Reason: esophagitis Last Admin: 09/11/18 13:58 Dose: 5 ml Dextrose (Dextrose 50% Inj) 0 ml IV STAT PRN; Protocol PRN Reason: Hypoglycemia Protocol Enoxaparin Sodium (Lovenox) 40 mg SC DAILY [facility]; Protocol Last Admin: 09/11/18 10:33 Dose: 40 mg Ferrous Sulfate (Feosol) 324 mg PO BID [facility] Last Admin: 09/11/18 10:31 Dose: 324 mg Furosemide (Lasix) 40 mg IVP BID [facility] Last Admin: 09/11/18 10:32 Dose: 40 mg Home Med (Home Med) 1 unit PO BID [facility] Last Admin: 09/11/18 10:35 Dose: 1 unit Dextrose (Dextrose 5% In Water 1000 Ml) 1,000 mls @ 0 mls/hr IV .Q0M PRN; Protocol PRN Reason: Hypoglycemia Protocol Trimethoprim/Sulfamethoxazole (240 mg/ Dextrose) 500 mls @ 250 mls/hr IVPB Q8H [facility]; Protocol Stop: 09/23/18 14:46 Last Admin: 09/11/18 05:44 Dose: 250 mls/hr Insulin Detemir (Levemir) 34 unit SC HS [facility] Insulin Human Lispro (Humalog Low) 0 units SC [facility]; Protocol Last Admin: 09/11/18 12:19 Dose: Not Given Insulin Human Lispro (Humalog) 14 units SC AC [facility] Last Admin: 09/11/18 12:27 Dose: 14 units Levothyroxine Sodium (Synthroid) 125 mcg PO DAILY [facility] Last Admin: 09/11/18 10:32 Dose: 125 mcg Methylprednisolone (Solu-Medrol) 20 mg IVP Q12 [facility] Metolazone (Zaroxolyn) 5 mg PO DAILY [facility] Stop: 09/14/18 11:16 Last Admin: 09/11/18 11:08 Dose: Not Given Metoprolol Tartrate (Lopressor) 25 mg PO BID [facility] Last Admin: 09/05/18 18:03 Dose: Not Given Mupirocin (Bactroban Ointment) 0 gm NS DAILY [facility] Stop: 09/20/18 10:01 Last Admin: 09/11/18 13:58 Dose: 1 applic Pantoprazole Sodium (Protonix Ec Tab) 40 mg PO DAILY [facility] Last Admin: 09/11/18 10:32 Dose: 40 mg Pregabalin (Lyrica) 25 mg PO BID [facility] Last Admin: 09/05/18 18:03 Dose: Not Given Spironolactone (Aldactone) 25 mg PO BID [facility] Last Admin: 09/11/18 10:32 Dose: 25 mg - Labs Labs: 09/11/18 07:00 09/11/18 07:00 PT 13.6 SECONDS (9.4-12.5) H 09/05/18 11:30 INR 1.18 09/05/18 11:30 APTT 23.5 Seconds (25.1-36.5) L 09/05/18 11:30 - Constitutional Appears: Chronically Ill - Head Exam Head Exam: NORMAL INSPECTION - Respiratory Exam Respiratory Exam: Decreased Breath Sounds, Rales (scattered) - Cardiovascular Exam Cardiovascular Exam: +S1, +S2 - GI/Abdominal Exam GI & Abdominal Exam: Soft. absent: Tenderness Assessment and Plan - Assessment and Plan (Free Text) Plan: Assessment bilteral alveolar infiltrates, R/O atypical pneumonia history of probable right sided HCAP associated with lung mass lung cancer, non-small cell, stage 4 morbid obesity with BMI 40 dyslipidemia colon cancer Plan continue Bactrim IV day 3 and will follow up Fungitell, Galactommanan, Histoplasma test, Aspergillus test, Adenovirus work up, EBV and CMV tests; serum Crypt Ag is not detected Overall prognosis is poor will continue to monitor clinically
[2018-09-12] MEDS ORDERED: Tolvaptan 15 MG TAB PO SCH (14:30)
--- NOTE | 2018-09-12 18:45 | PN ---
DATE: 09/12/2018 SUBJECTIVE: The patient is currently seen sitting in a chair. She appears to have less edema. She states her urine output had increased. She had lost 5 pounds in the last 24 hours, but her output is not charted. MEDICATIONS: Medication list reviewed. The patient is currently on aluminum hydroxide, magnesium, Maalox, Benadryl, lidocaine, acetylcysteine, Aldactone, aspirin, mupirocin, Brovana, DuoNeb, Feosol, crizotinib, insulin, IV Lasix, Lipitor, Lovenox, Protonix, Pulmicort, Solu-Medrol, Synthroid, Bactrim, and metolazone. OBJECTIVE: INTAKE AND OUTPUT. Intake is 1500 and output charted is 5 mL. Weight is down from 240 down to 235 pounds if accurate. VITAL SIGNS: Blood pressure 119/73, temperature 98.6, respiratory rate 18 with a pulse of 70. Oxygen saturation 96%. HEENT: Shows her to be normocephalic and atraumatic. Conjunctivae are pale. Sclerae nonicteric. NECK: Supple. No neck vein distention. CHEST: Clear to auscultation and percussion with no rales, rhonchi, or wheezing. CARDIOVASCULAR: Shows a normal S1 and S2. No audible murmurs, rubs or gallops. ABDOMEN: Mildly obese. Bowel sounds normal. No rebound, guarding, or masses. EXTREMITIES: With her legs ratio 2+ pitting edema. No cyanosis or clubbing. LABORATORY DATA AND IMAGING STUDIES: CBC today white blood cell count 10.3, hemoglobin stable 9.2, and platelet count is 364,000. Chemistries show sodium now down to 128 from a normal sodium of 135 on admission. Chloride 86, CO2 of 40. BUN is 30 with a creatinine of 0.8. Glucose 284 with a calcium level of 8.1. Last phosphorus 3.6. Last magnesium level 1.9. Liver enzymes show mild elevation of the ALT. Mild elevation of alkaline phosphatase. Albumin 2.5 and stable. Urine on admission showed white blood cells and red blood cells. Fungal serologies are pending. Cryptococcus was negative. Microbiology; blood cultures are negative at [address] scan done on third day of admission showed diffuse alveolar infiltrates, patchy infiltrates all consistent with pneumonia. Positive mediastinal adenopathy and a 2 x 3.4 cm right lower lobe mass. ASSESSMENT: 1. Worsening hyponatremia. Sodium is now down to 128 from a high of 135. This is in the setting of using three diuretics, Aldactone, Zaroxolyn and IV Lasix. The patient all likelihood has a delusional hyponatremia secondary to severe volume overload and 2 to 3+ lower extremity edema. There also might be a component of syndrome of inappropriate secretion of antidiuretic hormone secondary to her lung cancer. I will empirically treat the patient with tolvaptan 15 mg x3 days to help improve her sodium level. She does need to continue on diuretic therapy for her hypervolemia, she had lost 5 pounds in the last 24 hours according to the charted weight. 2. Mild prerenal azotemia likely secondary to diuretics and steroids. 3. Multi lobe pneumonia, possible atypical in nature. The patient remains on antibiotic therapy as per Infectious Disease. 4. Stage IV ine-[id number] cancer of the lung. 5. Past history of colon cancer, status post resection. 6. Mild hyperlipidemia, controlled. 7. History of obesity. 8. History of anemia likely secondary to underlying malignancy. 9. History of atherosclerotic heart disease, currently stable. 10. Past history of atrial fibrillation, the patient appears to be in sinus rhythm. 11. History of chronic obstructive pulmonary disease with exacerbation. PLAN: 1. We will start empirically tolvaptan 15 mg p.o. daily for 3 days. 2. Repeat uric acid level. 3. Thyroid function tests were checked and they were normal. 4. We will not obtain an a.m. cortisol level as the patient is on steroids. 5. We will check urine sodium and urine osmolality, but these results will likely be difficult to interpret in light of the fact that the patient is receiving three diuretics. 6. Need to obtain accurate Is and Os. 7. Continue to monitor daily weights. 8. When able, we will attempt to decrease diuretic therapy. Romeo Richards MD
--- NOTE | 2018-09-12 23:39 | PN ---
DATE: 09/12/2018 SUBJECTIVE: The patient is seen sitting in chair on telemetry. She is feeling somewhat better. She continues to have some peripheral edema. She does have exertional dyspnea. PHYSICAL EXAMINATION: GENERAL: She is an obese middle-aged woman. VITAL SIGNS: Blood pressure is 146/66 with pulse of 70, respirations are 16. She is afebrile. NECK: No JVD. HEART: PMI displaced laterally with systolic murmur at lower left sternal border. CHEST: Bilateral scattered rhonchi. ABDOMEN: Soft, nontender, and normoactive bowel sounds. EXTREMITIES: 2+ edema to the knees. DIAGNOSTIC DATA: Potassium 4.3, BUN and creatinine of 30 and 0.8, sodium is 128. White count 10.3, hematocrit 9.2 and 30.6, platelet count 364,000. MEDICATIONS: Her current medications include Mucomyst, Aldactone 25 mg b.i.d., aspirin, Brovana, DuoNeb inhaler, ferrous sulfate, insulin, Lasix 40 mg b.i.d., Lipitor 40 mg daily, metoprolol 25 mg b.i.d., Lovenox, Lyrica, Protonix, Pulmicort, Solu-Medrol, Synthroid, and Zaroxolyn. IMPRESSION: 1. Decompensated congestive heart failure, right-sided greater than left, [id number] with combined systolic and diastolic components, slowly improving. 2. Advanced lung cancer, recently completed radiation therapy. 3. Apparent right apical pneumonia. 4. Chronic obesity. 5. Chronic anemia. RECOMMENDATIONS: Her current diuretic therapy regimen will continue. Monitoring of her sodium and renal function will need to continue as well. Leg elevation and compression stocking use is advised. We will continue to follow and make further recommendations as appropriate. Vidal Fong MD
== END 2018-09-12 15:21 | DRG 193 ==
LOC: ED 10:37 → ERH 13:08 → 2RNO 17:29 → ERH 17:48 → 2RNO 18:41
PROVIDERS: ADMIT Family Medicine; ATTEND Family Medicine
PROC: 5A09357 Assistance with Respiratory Ventilation, Less than 24 Consecutive Hours, Continuous Positive Airway Pressure (ICD-10-PCS; principal; 2018-09-05)
DX: J18.9 Pneumonia, unspecified organism (principal); I50.43 Acute on chronic combined systolic (congestive) and diastolic (congestive) heart failure; C34.91 Malignant neoplasm of unspecified part of right bronchus or lung; J44.1 Chronic obstructive pulmonary disease with (acute) exacerbation; E87.1 Hypo-osmolality and hyponatremia; I13.0 Hypertensive heart and chronic kidney disease with heart failure and stage 1 through stage 4 chronic kidney disease, or unspecified chronic kidney disease; J44.0 Chronic obstructive pulmonary disease with (acute) lower respiratory infection; Z68.42 Body mass index [BMI] 45.0-49.9, adult; J20.9 Acute bronchitis, unspecified; N18.9 Chronic kidney disease, unspecified; E03.9 Hypothyroidism, unspecified; D50.9 Iron deficiency anemia, unspecified; I25.10 Atherosclerotic heart disease of native coronary artery without angina pectoris; D63.8 Anemia in other chronic diseases classified elsewhere; D63.1 Anemia in chronic kidney disease; I27.20 Pulmonary hypertension, unspecified; I48.0 Paroxysmal atrial fibrillation; R09.02 Hypoxemia; E66.01 Morbid (severe) obesity due to excess calories; E78.00 Pure hypercholesterolemia, unspecified; E78.5 Hyperlipidemia, unspecified; G47.30 Sleep apnea, unspecified; H26.9 Unspecified cataract; M19.90 Unspecified osteoarthritis, unspecified site; Y95 Nosocomial condition; K21.9 Gastro-esophageal reflux disease without esophagitis; R73.9 Hyperglycemia, unspecified; T38.0X5A Adverse effect of glucocorticoids and synthetic analogues, initial encounter; I25.2 Old myocardial infarction; Z85.038 Personal history of other malignant neoplasm of large intestine; Z87.891 Personal history of nicotine dependence

== ENCOUNTER 2018-09-12 15:27 | Inpatient (IN) | payer OTHER, MEDICARE ==
[2018-09-12 16:18] VITALS: BMI 44.4
[2018-09-12] MEDS ORDERED: Aluminum Hydroxide/Magnesium 30 ML, DiphenhydrAMINE 75 MG, Lidocaine 2% Viscous 30 ML PO PRN (16:31)
[2018-09-12] MEDS ORDERED: Dextrose 50% SYRINGE Inj (50 ml) IV PRN (16:31)
[2018-09-12] MEDS: CRIZOTINIB 250 MG PO SCH (17:43)
[2018-09-12] MEDS: MethylPREDNISolone 40 mg Vial IVP SCH (17:54)
[2018-09-12] MEDS ORDERED: CRIZOTINIB 250 MG PO SCH (18:00)
[2018-09-12] MEDS ORDERED: Influenza Vaccine 60 mcg/0.5 mL SYR (4YR UP) IM ONE (19:46)
[2018-09-12] MEDS ORDERED: Pneumococcal 23-Valent Vaccine IM ONE (19:46)
[2018-09-12] MEDS ORDERED: Arformoterol 15 mcg/2 ml Inh Sol IH SCH (20:00)
[2018-09-12] MEDS: Budesonide 0.25 mg/2 ml Inhal Susp UD IH SCH (21:15)
[2018-09-12] MEDS: Acetylcysteine 20% Inhal Soln (4ml) IH SCH (21:15)
[2018-09-12] MEDS: Arformoterol 15 mcg/2 ml Inh Sol IH SCH (21:15)
[2018-09-12] MEDS: Albuterol-Ipratrop 3 mg / 0.5 (3 ml) UD IH SCH (21:15)
[2018-09-12] MEDS: TRIMETHOPRIM IVPB SCH (22:07)
[2018-09-12] MEDS: DEXTROSE 5% IVPB SCH (22:07)
[2018-09-12] MEDS: WATER IVPB SCH (22:07)
[2018-09-12] MEDS: SULFAMETHOXAZOLE IVPB SCH (22:07)
[2018-09-12] MEDS: Insulin Lispro (humaLOG) LOW Coverage SC SCH (22:08)
[2018-09-12] MEDS: Insulin Detemir 100 units/ml Vial (Levemir) SC SCH (22:08)
[2018-09-13] MEDS: Albuterol-Ipratrop 3 mg / 0.5 (3 ml) UD IH SCH ×6 (02:15→23:30)
[2018-09-13] MEDS: DEXTROSE 5% IVPB SCH ×3 (05:29→22:02)
[2018-09-13] MEDS: TRIMETHOPRIM IVPB SCH ×3 (05:29→22:02)
[2018-09-13] MEDS: SULFAMETHOXAZOLE IVPB SCH ×3 (05:29→22:02)
[2018-09-13] MEDS: WATER IVPB SCH ×3 (05:29→22:02)
[2018-09-13] MEDS: Enoxaparin 40 mg Syringe SC SCH (05:30)
[2018-09-13] MEDS: Pantoprazole 40 mg EC Tab PO SCH (05:31)
[2018-09-13] MEDS: Levothyroxine 125 MCG TAB PO SCH (05:32)
[2018-09-13] MEDS: MethylPREDNISolone 40 mg Vial IVP SCH ×2 (05:32→17:39)
[2018-09-13] MEDS: Insulin Lispro 1 UNITS/0.01 ML SC SCH ×3 (06:30→17:37)
[2018-09-13] MEDS: Insulin Lispro (humaLOG) LOW Coverage SC SCH ×4 (06:30→22:03)
[2018-09-13 06:58] LABS: BASO # 0.03 K/mm3 (0.0-2.0); BASO % 0.2 % (0.0-3.0); HEMOGLOBIN 9.7 g/dL (12.0-16.0); LYMPH % 6.8 % (22.0-35.0); MEAN CELL VOLUME 76.8 fl (80.0-105.0); MEAN CORPUSCULAR HGB CONC 29.9 g/dl (31.0-37.0); MEAN PLATELET VOLUME 9.8 fl (7.0-11.0); MONO # 0.3 (0.1-0.6); MONO % 2.3 % (1.0-6.0); RBC 4.22 10^6/uL (3.5-6.1); RED CELL DISTRIBUTION WIDTH 25.9 % (11.5-14.5); WHITE BLOOD COUNT 14.3 10^3/uL (4.5-11.0)
[2018-09-13 06:59] LABS: BLOOD UREA NITROGEN 30 mg/dL (7-21); CALCIUM 8.4 mg/dL (8.4-10.5); GFR NON-AFRICAN AMERICAN 55
[2018-09-13] MEDS: Arformoterol 15 mcg/2 ml Inh Sol IH SCH ×2 (08:15→23:30)
[2018-09-13] MEDS: Acetylcysteine 20% Inhal Soln (4ml) IH SCH ×2 (08:15→23:30)
[2018-09-13] MEDS: Budesonide 0.25 mg/2 ml Inhal Susp UD IH SCH ×2 (08:15→23:30)
[2018-09-13] MEDS ORDERED: metOLazone 5 MG TAB PO SCH (10:00)
[2018-09-13] MEDS: Mupirocin 2% Ointment 15 GM TUBE NS SCH (10:22)
[2018-09-13] MEDS: CRIZOTINIB 250 MG PO SCH ×2 (10:23→17:36)
--- NOTE | 2018-09-13 11:10 | CP.PCM.PN ---
Subjective - Date & Time of Evaluation Date of Evaluation: 09/13/18 Time of Evaluation: 11:00 - Subjective Subjective: Ms White is a 68 year old female with a locally advanced non-small cell lung cancer. She is on xalkori. She completed radiation therapy yesterday. During her hospitalization, she had a CT of the chest to evaluate her lungs given her pulmonary symptoms of dyspnea as well as imaging on the cone beam which showed changes in the lung parenchyma both within and outside the radiation field. She also has had periods of waxing and waning lower extremity edema. In reviewing the CT of the chest, the cross-sectional images of the lung parenchyma show a pattern that looks similar to ILD versus lymphangitic carcinomatosis. Obviously the etiology of the pulmonary changes is important to discern since this would impact one's recommendation for treatment. Pathology would be the only way to discern and rule out causes. With ILD, she would need to discontinue medication that could be exacerbating/causing the ILD and start high dose steroids with a slow taper. In the setting of progressive disease, the recommendations of treatment would relate to systemic therapy. We spoke to Dr Frankie Adames yesterday about the above thoughts. Objective - Vital Signs/Intake and Output Vital Signs (last 24 hours): Temp Pulse Resp BP Pulse Ox 97.5 F L 66 20 114/56 L 92 L 09/12/18 19:18 09/13/18 08:32 09/12/18 19:18 09/13/18 08:04 09/12/18 16:00 - Medications Medications: Current Medications Acetylcysteine (Acetylcysteine 20%) 4 ml IH BIDRESP JOHN; Protocol Last Admin: 09/13/18 08:15 Dose: 4 ml Albuterol/Ipratropium (Duoneb 3 Mg/0.5 Mg (3 Ml) Ud) 3 ml IH [id number] JOHN; Protocol Last Admin: 09/13/18 08:16 Dose: 3 ml Arformoterol Tartrate (Brovana) 15 mcg IH [id number] JOHN; Protocol Last Admin: 09/13/18 08:15 Dose: 15 mcg Aspirin (Aspirin Chewable) 81 mg PO 0800 JOHN; Protocol Last Admin: 09/13/18 08:02 Dose: 81 mg Atorvastatin Calcium (Lipitor) 40 mg PO DAILY JOHN; Protocol Last Admin: 09/13/18 10:24 Dose: 40 mg Budesonide (Pulmicort Respules) 0.25 mg IH [id number] JOHN; Protocol Last Admin: 09/13/18 08:15 Dose: 0.25 mg Al Hydrox/Mg Hydrox/Simethicone 30 ml/Diphenhydramine HCl 75 mg/Lidocaine 30 ml 0 ml PO Q2H PRN; Protocol PRN Reason: Mouth/Throat Pain Dextrose (Dextrose 50% Inj) 0 ml IV STAT PRN; Protocol PRN Reason: Hypoglycemia Protocol Enoxaparin Sodium (Lovenox) 40 mg SC 0600 JOHN; Protocol Last Admin: 09/13/18 05:30 Dose: 40 mg Ferrous Sulfate (Feosol) 324 mg PO 0800,1800 JOHN; Protocol Last Admin: 09/13/18 08:03 Dose: 324 mg Furosemide (Lasix) 40 mg IVP 0600,1800 JOHN; Protocol Last Admin: 09/13/18 05:32 Dose: 40 mg Home Med (Home Med) 1 unit PO BID JOHN Last Admin: 09/13/18 10:23 Dose: 1 unit Trimethoprim/Sulfamethoxazole (240 mg/ Dextrose) 500 mls @ 166.667 mls/hr IVPB Q8H JOHN; Protocol Last Admin: 09/13/18 05:29 Dose: 166.667 mls/hr Dextrose (Dextrose 5% In Water 1000 Ml) 1,000 mls @ 0 mls/hr IV .Q0M PRN; Protocol PRN Reason: Hypoglycemia Protocol Insulin Detemir (Levemir) 34 unit SC HS JOHN; Protocol Last Admin: 09/12/18 22:08 Dose: 34 units Insulin Human Lispro (Humalog) 14 units SC AC JOHN; Protocol Last Admin: 09/13/18 06:30 Dose: Not Given Insulin Human Lispro (Humalog Low) 0 units SC ACHS JOHN; Protocol Last Admin: 09/13/18 06:30 Dose: 1 unit Levothyroxine Sodium (Synthroid) 125 mcg PO 0630 JOHN; Protocol Last Admin: 09/13/18 05:32 Dose: 125 mcg Methylprednisolone (Solu-Medrol) 20 mg IVP 0600,1800 JOHN; Protocol Last Admin: 09/13/18 05:32 Dose: 20 mg Metolazone (Zaroxolyn) 5 mg PO DAILY JOHN; Protocol Metoprolol Tartrate (Lopressor) 25 mg PO 0800,1800 [facility]; Protocol Last Admin: 09/13/18 08:04 Dose: Not Given Mupirocin (Bactroban Ointment) 1 gm NS DAILY [facility]; Protocol Stop: 09/22/18 10:01 Last Admin: 09/13/18 10:22 Dose: 1 applic Pantoprazole Sodium (Protonix Ec Tab) 40 mg PO 0630 [facility]; Protocol Last Admin: 09/13/18 05:31 Dose: 40 mg Spironolactone (Aldactone) 25 mg PO BID [facility]; Protocol Last Admin: 09/12/18 17:40 Dose: 25 mg - Labs Labs: 09/13/18 06:30 09/13/18 06:30
--- NOTE | 2018-09-13 11:31 | PN ---
DATE: 09/13/2018 SUBJECTIVE: The patient is seen sitting in a chair on the transitional care unit. She states she has had several dizzy episodes yesterday. Peripheral edema persists but is improved. CURRENT MEDICATIONS: Include Mucomyst, Aldactone, aspirin, Brovana, DuoNeb inhaler, iron sulfate, crizotinib, insulin, Lasix, Lipitor, metoprolol 25 mg b.i.d., Lovenox, Protonix, Pulmicort, Solu-Medrol, Synthroid, Bactrim, and Zaroxolyn. OBJECTIVE: GENERAL: She is an obese middle-aged woman. VITAL SIGNS: Her blood pressure is 114/60 with a pulse of 60 and regular, respiratory rate is 16. She is afebrile. HEENT: No JVD. CHEST: Bilateral scattered rhonchi heard. HEART: PMI displaced laterally. Distant tones noted. ABDOMEN: Soft, obese with normoactive bowel sounds. EXTREMITIES: 1 to 2+ edema to the knees. DIAGNOSTIC DATA: Sodium is 130, potassium 4.1, BUN and creatinine 30 and 1. White count 14.3, hemoglobin and hematocrit 9.7 and 32.4 with platelet count of 411,000. IMPRESSION: 1. Recent dizziness, possibly due to aggressive diuretic effect. 2. Decompensated congestive heart failure, predominantly right-sided, [id number] combined systolic and diastolic. 3. Advanced lung cancer, status post radiation therapy. 4. Chronic obesity. 5. Chronic anemia. 6. Rest of problems as noted. RECOMMENDATIONS: Diuretic therapy will be held for the next 1 to 2 days to see her response to this. Resumption of compression stocking use would be advisable. Continued exercise as tolerated is recommended. Followup blood work will be planned. We will continue to follow and make further recommendations as appropriate. Vidal Fong MD
[2018-09-13] MEDS ORDERED: Aztreonam 1 Gm in NS 100mL 100 ML IVPB SCH (13:15)
--- NOTE | 2018-09-13 13:16 | CP.PCM.CON ---
History of Present Illness - History of Present Illness History of Present Illness: 68 year old female with PMH of lung cancer, non-small cell, stage 4, morbid obesity with BMI 44, dyslipidemia, colon cancer has been in and out of the hospital for more than a month now with shortness of breath and on this last admission she was found to have bilateral alveolar infiltrates and is being treated for possible PJP R/O other etiologies. She is now transferred to [facility] for continued medical therapy and physical rehab. She is currently resting in bed comfortably although her blood pressure was noted to be on the low side, her WBC count is elevated today and her legs are a little more swollen. She has no fevers, no vomiting, no diarrhea, no shortness of breath at rest. Infectious diseases consult is requested to further evaluate and manage. PMHx: as above Past surgical history: S/P colon resection FMHx: both parents without significant co-morbidities as per patient PSHx: patient is a former smoker, denies illicit drug use or alcohol abuse Review of Systems - Review of Systems All systems: reviewed and no additional remarkable complaints except (as per HPI) Past Patient History - Infectious Disease Hx of Infectious Diseases: None - Past Social History Smoking Status: Former Smoker - CARDIAC Hx Congestive Heart Failure: Yes - PULMONARY Hx Chronic Obstructive Pulmonary Disease (COPD): Yes - NEUROLOGICAL Hx Neurological Disorder: No - HEENT Hx HEENT Problems: Yes (Glasses) Hx Cataracts: Yes Other/Comment: detached retina left eye - RENAL Hx Chronic Kidney Disease: No - ENDOCRINE/METABOLIC Hx Hypothyroidism: Yes - HEMATOLOGICAL/ONCOLOGICAL Hx Blood Disorders: Yes (blood transfusion) Hx Anemia: Yes (iron deficiency) Hx Cancer: Yes (Lung, colon) Other/Comment: 09/2017 pt had a colon resection no chemo, r lung non small cell stage III ca takes chemo pill started radiation in 08/01, has completed 12 treatments tuesday through tuesday, needs 36 total radiation treatments - INTEGUMENTARY Hx Dermatological Problems: Yes Other/Comment: multiple moles around neck chest, b/l arms multiple skin tears and this dry skin,multiple bruises bruising to abd from "heparin" injections last admission, lle 1.2cm x 0.6cm open wound yellow surrounded by red skin, pt hit a chair about 2 months ago, redness to b/l groin on and off, slight redness ble - MUSCULOSKELETAL/RHEUMATOLOGICAL Hx Falls: No - GASTROINTESTINAL Hx Gastrointestinal Disorders: Yes (COLON CA H/O COLON RESECTION) - GENITOURINARY/GYNECOLOGICAL Hx Genitourinary Disorders: No Hx Reproductive Disorders: No - PSYCHIATRIC Hx Psychophysiologic Disorder: No Hx Substance Use: No - SURGICAL HISTORY Other/Comment: 10/2017- Colon resection for adenocarcinoma. Surg. repair for det ached retina both eyes LEFT 2012,Right 2016 - ANESTHESIA Hx Anesthesia: Yes Hx Anesthesia Reactions: No Hx Malignant Hyperthermia: No Meds Allergies/Adverse Reactions: Allergies Allergy/AdvReac Type Severity Reaction Status Date / Time No Known Allergies Allergy Verified 09/12/18 17:54 - Medications Medications: Current Medications Acetylcysteine (Acetylcysteine 20%) 4 ml IH BIDRESP JOHN; Protocol Last Admin: 09/13/18 08:15 Dose: 4 ml Albuterol/Ipratropium (Duoneb 3 Mg/0.5 Mg (3 Ml) Ud) 3 ml IH [id number] JOHN; P rotocol Last Admin: 09/13/18 08:16 Dose: 3 ml Arformoterol Tartrate (Brovana) 15 mcg IH [id number] JOHN; Protocol Last Admin: 09/13/18 08:15 Dose: 15 mcg Aspirin (Aspirin Chewable) 81 mg PO 0800 JOHN; Protocol Last Admin: 09/13/18 08:02 Dose: 81 mg Atorvastatin Calcium (Lipitor) 40 mg PO DAILY JOHN; Protocol Budesonide (Pulmicort Respules) 0.25 mg IH [id number] JOHN; Protocol Last Admin: 09/13/18 08:15 Dose: 0.25 mg Al Hydrox/Mg Hydrox/Simethicone 30 ml/Diphenhydramine HCl 75 mg/Lidocaine 30 ml 0 ml PO Q2H PRN; Protocol PRN Reason: Mouth/Throat Pain Dextrose (Dextrose 50% Inj) 0 ml IV STAT PRN; Protocol PRN Reason: Hypoglycemia Protocol Enoxaparin Sodium (Lovenox) 40 mg SC 0600 JOHN; Protocol Last Admin: 09/13/18 05:30 Dose: 40 mg Ferrous Sulfate (Feosol) 324 mg PO 0800,1800 JOHN; Protocol Last Admin: 09/13/18 08:03 Dose: 324 mg Furosemide (Lasix) 40 mg IVP 0600,1800 JOHN; Protocol Last Admin: 09/13/18 05:32 Dose: 40 mg Home Med (Home Med) 1 unit PO BID [facility] Last Admin: 09/12/18 17:43 Dose: 1 unit Trimethoprim/Sulfamethoxazole (240 mg/ Dextrose) 500 mls @ 166.667 mls/hr IVPB Q8H [facility]; Protocol Last Admin: 09/13/18 05:29 Dose: 166.667 mls/hr Dextrose (Dextrose 5% In Water 1000 Ml) 1,000 mls @ 0 mls/hr IV .Q0M PRN; Protocol PRN Reason: Hypoglycemia Protocol Insulin Detemir (Levemir) 34 unit SC HS [facility]; Protocol Last Admin: 09/12/18 22:08 Dose: 34 units Insulin Human Lispro (Humalog) 14 units SC AC [facility]; Protocol Last Admin: 09/13/18 06:30 Dose: Not Given Insulin Human Lispro (Humalog Low) 0 units SC ACHS [facility]; Protocol Last Admin: 09/13/18 06:30 Dose: 1 unit Levothyroxine Sodium (Synthroid) 125 mcg PO 0630 [facility]; Protocol Last Admin: 09/13/18 05:32 Dose: 125 mcg Methylprednisolone (Solu-Medrol) 20 mg IVP 0600,1800 JOHN; Protocol Last Admin: 09/13/18 05:32 Dose: 20 mg Metolazone (Zaroxolyn) 5 mg PO DAILY [facility]; Protocol Metoprolol Tartrate (Lopressor) 25 mg PO 0800,1800 JOHN; Protocol Last Admin: 09/13/18 08:04 Dose: Not Given Mupirocin (Bactroban Ointment) 1 gm NS DAILY [facility]; Protocol Stop: 09/22/18 10:01 Pantoprazole Sodium (Protonix Ec Tab) 40 mg PO 0630 JOHN; Protocol Last Admin: 09/13/18 05:31 Dose: 40 mg Spironolactone (Aldactone) 25 mg PO BID [facility]; Protocol Last Admin: 09/12/18 17:40 Dose: 25 mg Physical Exam - Constitutional Appears: Chronically Ill - Head Exam Head Exam: NORMAL INSPECTION - Neck Exam Neck exam: Negative for: Lymphadenopathy, Meningismus - Respiratory Exam Respiratory Exam: Decreased Breath Sounds - Cardiovascular Exam Cardiovascular Exam: +S1, +S2 - GI/Abdominal Exam GI & Abdominal Exam: Soft. absent: Tenderness Results - Vital Signs Recent Vital Signs: Last Vital Signs Temp 97.5 F L 09/12/18 19:18 Pulse 66 09/13/18 08:32 Resp 20 09/12/18 19:18 BP 114/56 L 09/13/18 08:04 Pulse Ox 92 L 09/12/18 16:00 - Labs Result Diagrams: 09/13/18 06:30 09/13/18 06:30 Labs: Laboratory Results - last 24 hr 09/12/18 09/12/18 09/13/18 16:23 21:23 05:42 WBC RBC Hgb Hct MCV MCH MCHC RDW Plt Count MPV Neut % (Auto) Lymph % (Auto) Moore % (Auto) Eos % (Auto) Baso % (Auto) Lymph # (Auto) Moore # (Auto) Eos # (Auto) Baso # (Auto) Absolute Neuts (auto) Sodium Potassium Chloride Carbon Dioxide Anion Gap BUN Creatinine Est GFR ( Amer) Est GFR (Non-Af Amer) POC Glucose (mg/dL) 197 H 226 H 150 H Random Glucose Calcium 09/13/18 09/13/18 06:30 06:30 WBC 14.3 H D RBC 4.22 Hgb 9.7 L Hct 32.4 L MCV 76.8 L MCH 23.0 L MCHC 29.9 L RDW 25.9 H Plt Count 411 MPV 9.8 Neut % (Auto) 90.7 H Lymph % (Auto) 6.8 L Moore % (Auto) 2.3 Eos % (Auto) 0.0 L Baso % (Auto) 0.2 Lymph # (Auto) 1.0 L Moore # (Auto) 0.3 Eos # (Auto) 0.0 Baso # (Auto) 0.03 Absolute Neuts (auto) 12.98 H Sodium 130 L Potassium 4.1 Chloride 86 L Carbon Dioxide 39 H Anion Gap 9 L BUN 30 H Creatinine 1.0 Est GFR ( Amer) > 60 Est GFR (Non-Af Amer) 55 POC Glucose (mg/dL) Random Glucose 175 H Calcium 8.4 Assessment & Plan - Assessment and Plan (Free Text) Plan: Assessment bilteral alveolar infiltrates, R/O atypical pneumonia new onset leukocytosis R/O new onset sepsis history of probable right sided HCAP associated with lung mass lung cancer, non-small cell, stage 4 morbid obesity with BMI 40 dyslipidemia colon cancer Plan continue Bactrim IV day 4 and will add Aztreonam and will re-check blood, urine cx, sputum cx, PCT; follow up Fungitell, Galactommanan, Histoplasma test, Aspergillus antigen test is negative, follow up Adenovirus work up, EBV and CMV tests; serum Crypt Ag is not detected Overall prognosis is poor will continue to monitor clinically discussed with Dr. Jang
--- NOTE | 2018-09-13 13:51 | CON ---
DATE: 09/13/2018 REASON FOR CONSULTATION: Hypotension, orthostatic hypotension. HISTORY OF PRESENT ILLNESS: A 68-year-old lady known to me from the medical side. The patient was admitted to the other side with shortness of breath, cough, 3+ pitting edema. The patient was treated for COPD exacerbation, she received IV Lasix for edema. Now, she is on the transitional care for physical therapy. This morning, the patient complained of some dizziness when she got up to have physical therapy. Blood pressure was checked in three positions; blood pressure was found to be 110/60 in the sitting position, it dropped down to 90/60 standing up. After physical therapy, pressure was repeated again; it was 130/60 sitting down and it dropped to 110/60 standing up. Currently, she is sitting in chair. She complains of some dizziness. PAST MEDICAL AND SURGICAL HISTORY: Stage IV non-small cell CA of the lung, COPD, CHF, CAD, history of colon cancer status post resection, AR, atrial fibrillation, obesity, anemia, edema. FAMILY HISTORY: Noncontributory. SOCIAL HISTORY: Ex-smoker, she quit 20 years ago. ALLERGIES: NO KNOWN DRUG ALLERGIES. CURRENT MEDICATIONS: Mucomyst, Aldactone 25 b.i.d. on hold, aspirin, Brovana, DuoNeb, Feosol 325 b.i.d., insulin, Lasix 40 IV every 12 hours now on hold, Levemir, Lipitor, Lopressor 25 b.i.d., Lovenox, Protonix, Pulmicort, Solu-Medrol, Synthroid, Bactrim, metolazone on hold. REVIEW OF SYSTEMS: All systems are reviewed, pertinent positives as mentioned in history of presenting illness. PHYSICAL EXAMINATION: GENERAL: Morbidly obese, elderly lady sitting in chair. VITAL SIGNS: Blood pressure 110/60, heart rate 66, respiratory rate 18-20, temperature 97.5. HEENT: Normocephalic, atraumatic, positive pallor. NECK: Supple, no JVD. LUNGS: Bilateral equal air entry, bilateral equal expansion, no rales, no rhonchi. CARDIAC: S1, S2, regular rate and rhythm, no murmur, no rub. ABDOMEN: Obese, distended, soft, nontender, bowel sounds present. EXTREMITIES: 3+ pitting edema of the lower extremities, some erythema of the lower extremities also. LABORATORY DATA: WBC 14, hemoglobin 9.7, hematocrit 32, platelets 411,000. Sodium 130, potassium 4.1, chloride 86, CO2 39, BUN 30, creatinine 1, glucose 175, calcium 8.4. ASSESSMENT: 1. Orthostatic hypotension. 2. Elevated white blood cell count. 3. Hyponatremia. 4. Erythema of the lower extremities, ?cellulitis. 5. History of coronary artery disease, congestive heart failure, myocardial infarction. 6. Stage IV non-small cell cancer of the lung. PLAN: 1. Check urinalysis. 2. Urine sodium, urine osmolality and serum uric acid. 3. Agree with holding Lasix for the time being. 4. Monitor WBC count. 5. Monitor daily weights. 6. ID followup. Tamiko Jang MD
--- NOTE | 2018-09-13 13:55 | CP.PCM.HP ---
<Dejuan Garvey - Last Filed: 09/13/18 13:38> History of Present Illness - History of Present Illness History of Present Illness: PGY-2 H&P heme/onc for Dr Adames Mrs White is a 68 year old female with a PMHx of unresectable stage III NSCLC with an ALK mutation, COPD, CHF, ASCVD, hx of colon cancer with resection stage 2, AL, AFib (now resolved), anemia of chronic disease, low vitamin D, obesity who present for shortness of breath and dry cough for 1 day. She was recently admitted for a very similiar presentation which she recovered from and was sent to TCU from which she went home. She is currently receiving radiation therapy and states she has 5 sessions left. She recently stopped her lasix and prednisone as well as her metoprolol tartrate which was stopped due to lightheadedness (this was started for episodes of SVT which have no resolved). She states her legs are now less swollen. After her recent discharge she did not have have a chance to follow-up with cardio Dr Perea or pulm Dr Feliz. 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, COPD, CHF, ASCVD, hx of colon cancer with resection stage 2, AL, AFib (now resolved), anemia of chronic disease, low vitamin D, obesity PSHx: colon resection, surgery for detached retina Allergies: NKA SocialHx: former smoker FamHx: both parents from age-related illness Present on Admission - Present on Admission Any Indicators Present on Admission: No Review of Systems - Review of Systems All systems: reviewed and no additional remarkable complaints except (as stated in HPI) Past Patient History - Infectious Disease Hx of Infectious Diseases: None - Past Social History Smoking Status: Former Smoker - CARDIAC Hx Congestive Heart Failure: Yes - PULMONARY Hx Chronic Obstructive Pulmonary Disease (COPD): Yes - NEUROLOGICAL Hx Neurological Disorder: No - HEENT Hx HEENT Problems: Yes (Glasses) Hx Cataracts: Yes Other/Comment: detached retina left eye - RENAL Hx Chronic Kidney Disease: No - ENDOCRINE/METABOLIC Hx Hypothyroidism: Yes - HEMATOLOGICAL/ONCOLOGICAL Hx Blood Disorders: Yes (blood transfusion) Hx Anemia: Yes (iron deficiency) Hx Cancer: Yes (Lung, colon) Other/Comment: 09/2017 pt had a colon resection no chemo, r lung non small cell stage III ca takes chemo pill started radiation in 08/01, has completed 12 treatments tuesday through tuesday, needs 36 total radiation treatments - INTEGUMENTARY Hx Dermatological Problems: Yes Other/Comment: multiple moles around neck chest, b/l arms multiple skin tears and this dry skin,multiple bruises bruising to abd from "heparin" injections last admission, lle 1.2cm x 0.6cm open wound yellow surrounded by red skin, pt hit a chair about 2 months ago, redness to b/l groin on and off, slight redness ble - MUSCULOSKELETAL/RHEUMATOLOGICAL Hx Falls: No - GASTROINTESTINAL Hx Gastrointestinal Disorders: Yes (COLON CA H/O COLON RESECTION) - GENITOURINARY/GYNECOLOGICAL Hx Genitourinary Disorders: No Hx Reproductive Disorders: No - PSYCHIATRIC Hx Psychophysiologic Disorder: No Hx Substance Use: No - SURGICAL HISTORY Other/Comment: 10/2017- Colon resection for adenocarcinoma. Surg. repair for detached retina both eyes LEFT 2012,Right 2016 - ANESTHESIA Hx Anesthesia: Yes Hx Anesthesia Reactions: No Hx Malignant Hyperthermia: No Meds Allergies/Adverse Reactions: Allergies Allergy/AdvReac Type Severity Reaction Status Date / Time No Known Allergies Allergy Verified 09/12/18 17:54 Physical Exam - Additional Findings Additional findings: - Head Exam Head Exam: NORMAL INSPECTION - Additional Findings Additional findings: - Constitutional Appears: Well, Non-toxic, No Acute Distress - Head Exam Head Exam: ATRAUMATIC, NORMAL INSPECTION - Eye Exam Eye Exam: EOMI, Normal appearance, PERRL. absent: Scleral icterus - ENT Exam ENT Exam: Mucous Membranes Moist - Respiratory Exam Respiratory Exam: Wheezes, NORMAL BREATHING PATTERN - Cardiovascular Exam Cardiovascular Exam: Tachycardia, REGULAR RHYTHM, +S1, +S2. absent: JVD - GI/Abdominal Exam GI & Abdominal Exam: Normal Bowel Sounds, Soft. absent: Tenderness - Extremities Exam Extremities exam: Positive for: normal capillary refill, pedal edema, pedal pulses present - Neurological Exam Neurological exam: Alert, Oriented x3 - Psychiatric Exam Psychiatric exam: Normal Affect - Skin Skin Exam: Dry, Normal Color, Warm Results - Vital Signs Recent Vital Signs: Last Vital Signs Temp 97.5 F L 09/12/18 19:18 Pulse 66 09/13/18 08:32 Resp 20 09/12/18 19:18 BP 114/56 L 09/13/18 08:04 Pulse Ox 92 L 09/12/18 16:00 - Labs Result Diagrams: 09/13/18 06:30 09/13/18 06:30 Labs: Laboratory Results - last 24 hr 09/12/18 09/12/18 09/13/18 16:23 21:23 05:42 WBC RBC Hgb Hct MCV MCH MCHC RDW Plt Count MPV Neut % (Auto) Lymph % (Auto) Long % (Auto) Eos % (Auto) Baso % (Auto) Lymph # (Auto) Long # (Auto) Eos # (Auto) Baso # (Auto) Absolute Neuts (auto) Sodium Potassium Chloride Carbon Dioxide Anion Gap BUN Creatinine Est GFR ( Amer) Est GFR (Non-Af Amer) POC Glucose (mg/dL) 197 H 226 H 150 H Random Glucose Uric Acid Calcium 09/13/18 09/13/18 09/13/18 06:30 06:30 06:30 WBC 14.3 H D RBC 4.22 Hgb 9.7 L Hct 32.4 L MCV 76.8 L MCH 23.0 L MCHC 29.9 L RDW 25.9 H Plt Count 411 MPV 9.8 Neut % (Auto) 90.7 H Lymph % (Auto) 6.8 L Long % (Auto) 2.3 Eos % (Auto) 0.0 L Baso % (Auto) 0.2 Lymph # (Auto) 1.0 L Long # (Auto) 0.3 Eos # (Auto) 0.0 Baso # (Auto) 0.03 Absolute Neuts (auto) 12.98 H Sodium 130 L Potassium 4.1 Chloride 86 L Carbon Dioxide 39 H Anion Gap 9 L BUN 30 H Creatinine 1.0 Est GFR ( Amer) > 60 Est GFR (Non-Af Amer) 55 POC Glucose (mg/dL) Random Glucose 175 H Uric Acid 4.2 Calcium 8.4 Assessment & Plan - Assessment and Plan (Free Text) Plan: Mrs White is a 68 year old female with a PMHx of unresectable stage III NSCLC with an ALK mutation, COPD, CHF, ASCVD, hx of colon cancer with resection stage 2, AL, AFib (now resolved), anemia of chronic disease, low vitamin D, obesity who present for shortness of breath and dry cough: #Right Upper Lobe Infiltrate 2/2 Radiation Induced or Superimposed HCAP #unresectable stage IIIb non-small cell carcinoma of the lung, currently on radiation #Decompensated CHF, Predominantly right-sided, acute on chronic combined systolic and diastolic #Iron Deficiency Anemia #sleep apnea syndrome #morbid obesity #Hx of NSTEMI -completed radiation with Dr Sarah Sinha on 09/12/18 to open up the passage of the right mainstem; still waiting for results from [employer] assay for next generation sequencing from Dr Hobbs's office; currently on crizotinib (xalkori) 250mg po bid -to treat her shortness of breath as well as LE edema we'll give her brovana 15mcg ih q12h, budesonide 0.25mg ih q12h, duoneb q4h prn, acetylcysteine 3ml ih bid, lasix 40mg ivp bid, solumedrol 20mg ivp q12h, aldactone 25mg po bid, potassium 20meq po bid, metolazone 5mg po qd for 3 days (started 09/11) * it appears everytime she has her lasix discontinued or reduced she has a re-ac cumulation of fluid * 09/13: patient experiencing increasing dizziness - Dr Perea held all her diuretics including lasix, metolazone and spironolactone - plan is to hold for the next 2 days -continue home meds lipitor 40mg po qd, synthroid 125mcg po qd, metoprolol tartrate 25mg po bid, pregabalin 25mg po bid (on hold), aspirin 81mg po qd, crizotinib 250mg po bid (to treat her lung cancer) -empiric abx coverage wth cefepime 2g ivp q8h (started 09/05 and now discontinued), blood cx negative up to date, procalc negative, now on sulfamethoxazole/trimethoprim 240mg ivpb q8h (started 09/09) - we'll need to monitor her kidney function and now on aztreonam 1g ivpb q12h (started 09/13) * f/u adenovirus pcr, aspergillus testing, cmv pcr, cryptococcus ag, ebg ab, fungitell (1-3) b-d glucan, parainfluenza virus, rsv ag * b-d glucan came back positive -chest CT w/o contrast 09/08: There is a diffuse alveolar infiltrate in both upper lobes and the right lower lobe. There is a patchy infiltrate in the left lower lobe. Findings are most consistent with pneumonia. There is a 2 x 3.4 cm mass in the right lower lobe adjacent to the inferior hilum. Mediastinal adenopathy * Dr Sarah Sinha believes lung parenchyma show a pattern that looks similar to ILD versus lymphangitic carcinomatosis and that Pathology would be the only way to discern and rule out causes. -insulin levemir 34u schs and lispro 14u sc ac -ppx with lovenox 40mg sc qd and protonix 40mg po qd -cpap while sleeping -head of bed at 30 degrees -iron 17, tibc 222, %sat 8, ferritin level 154, b12 normal and folate normal, she is on feosol 324mg po bid -pulmonary consult, Dr Feliz and cardio consult, Dr Perea, ID Dr Rooney, and Nephrology consult Dr Jang for fluid management Dispo: currently in TCU; waiting for PT recs <Gabby Adames - Last Filed: 09/15/18 19:23> Results - Vital Signs Recent Vital Signs: Last Vital Signs Temp 97.4 F L 09/15/18 16:00 Pulse 76 09/15/18 16:38 Resp 20 09/15/18 16:00 BP 109/63 09/15/18 16:00 Pulse Ox 92 L 09/15/18 16:38 - Labs Result Diagrams: 09/15/18 06:20 09/15/18 06:20 Labs: Laboratory Results - last 24 hr 09/14/18 09/15/18 09/15/18 21:16 05:00 06:20 WBC 17.7 H RBC 4.21 Hgb 9.7 L Hct 32.4 L MCV 77.0 L MCH 23.0 L MCHC 29.9 L RDW 25.6 H Plt Count 405 MPV 10.1 Neut % (Auto) 91.4 H Lymph % (Auto) 4.4 L Long % (Auto) 4.1 Eos % (Auto) 0.0 L Baso % (Auto) 0.1 Lymph # (Auto) 0.8 L Long # (Auto) 0.7 H Eos # (Auto) 0.0 Baso # (Auto) 0.02 Absolute Neuts (auto) 16.16 H Neutrophils % (Manual) 91 H Band Neutrophils % 4 H Lymphocytes % (Manual) 1 L Monocytes % (Manual) 4 Platelet Evaluation High Large Platelets Present Sodium Potassium Chloride Carbon Dioxide Anion Gap BUN Creatinine Est GFR ( Amer) Est GFR (Non-Af Amer) POC Glucose (mg/dL) 236 H 186 H Random Glucose Calcium Total Bilirubin AST ALT Alkaline Phosphatase Total Protein Albumin Globulin Albumin/Globulin Ratio 09/15/18 09/15/18 09/15/18 06:20 12:05 14:26 WBC RBC Hgb Hct MCV MCH MCHC RDW Plt Count MPV Neut % (Auto) Lymph % (Auto) Long % (Auto) Eos % (Auto) Baso % (Auto) Lymph # (Auto) Long # (Auto) Eos # (Auto) Baso # (Auto) Absolute Neuts (auto) Neutrophils % (Manual) Band Neutrophils % Lymphocytes % (Manual) Monocytes % (Manual) Platelet Evaluation Large Platelets Sodium 131 L Potassium 4.8 Chloride 92 L Carbon Dioxide 37 H Anion Gap 7 L BUN 31 H Creatinine 0.8 Est GFR ( Amer) > 60 Est GFR (Non-Af Amer) > 60 POC Glucose (mg/dL) 205 H 271 H Random Glucose 147 H Calcium 8.5 Total Bilirubin 0.3 AST 35 ALT 70 H Alkaline Phosphatase 134 H Total Protein 5.4 L Albumin 2.5 L Globulin 2.8 Albumin/Globulin Ratio 0.9 L 09/15/18 16:20 WBC RBC Hgb Hct MCV MCH MCHC RDW Plt Count MPV Neut % (Auto) Lymph % (Auto) Long % (Auto) Eos % (Auto) Baso % (Auto) Lymph # (Auto) Long # (Auto) Eos # (Auto) Baso # (Auto) Absolute Neuts (auto) Neutrophils % (Manual) Band Neutrophils % Lymphocytes % (Manual) Monocytes % (Manual) Platelet Evaluation Large Platelets Sodium Potassium Chloride Carbon Dioxide Anion Gap BUN Creatinine Est GFR ( Amer) Est GFR (Non-Af Amer) POC Glucose (mg/dL) 237 H Random Glucose Calcium Total Bilirubin AST ALT Alkaline Phosphatase Total Protein Albumin Globulin Albumin/Globulin Ratio Attending/Attestation - Attestation I have personally seen and examined this patient.: Yes I have fully participated in the care of the patient.: Yes I have reviewed all pertinent clinical information: Yes
[2018-09-13] MEDS ORDERED: Benzocaine/Menthol (Cepacol) Lozenge MT PRN (14:12)
--- NOTE | 2018-09-13 15:46 | CON ---
DATE: 09/13/2018 PULMONARY CONSULT NOTE REFERRING PHYSICIAN: Gerard Gibson MD REASON FOR CONSULTATION: Shortness of breath, lung cancer, and pneumonia. HISTORY OF PRESENT ILLNESS: This is a 68-year-old female with past medical history significant for unresectable non-small cell lung cancer stage III, COPD, CHF, atherosclerotic cardiovascular disease, history of colon cancer with resection, myocardial infraction, history of atrial fibrillation, anemia, who was recently acutely treated for healthcare-associated pneumonia. The patient was also undergoing radiation therapy, which she completed yesterday. The patient presents today for rehabilitation, reports today that she feels short of breath, got dizzy, who went changing positions this morning. Reporting having a sore throat. Denies any coughing. PAST MEDICAL HISTORY: As per history of present illness. FAMILY HISTORY: No significant cardiopulmonary disease reported. SOCIAL HISTORY: Former smoker. Denies alcohol use or illicit drug use. ALLERGIES: NO KNOWN ALLERGIES. MEDICATIONS: Mucomyst 4 mL inhalation twice a day, Magic mouthwash every 2 hours p.r.n., DuoNeb 3 mL inhalation every 4 hours, Brovana 15 mcg every 12 hours, aspirin 81 mg daily, Lipitor 40 mg daily, Azactam 1 gram every 12 hours, budesonide 0.25 mg inhalation every 12 hours, Lovenox 40 mg subcutaneously daily, Ferrous sulfate 324 mg twice a day, Lasix 40 mg twice a day, Levemir 34 units subcutaneous at bedtime, Humalog sliding scale a.c. and at bedtime, Humalog 14 units subcutaneous a.c., Synthroid 125 mcg daily, Solu-Medrol 20 mg twice a day, metolazone 5 mg daily, Lopressor 25 mg twice a day, Bactroban 1 gram daily nasally, Protonix 40 mg daily, spirolactone 25 mg twice a day, and Bactrim 240 mg every 8 hours. REVIEW OF SYSTEMS: No headache, rhinitis, chest pain, abdominal pain, nausea, vomiting, diarrhea, or leg pain reported. The patient does report feeling increased shortness of breath today. Feeling dizzy when changing positions. Reports sore throat. Denies any coughing. Does have leg swelling. PHYSICAL EXAMINATION GENERAL: No acute distresses. VITAL SIGNS: Blood pressure 114/56, pulse 62, temperature 97.5 and pule oxymetry 92%. HEENT: Moist mucus membrane. Mallampati score of 4. Crowded airways. NECK: Supple. No JVD. LUNGS: Scattered rhonchi bilaterally. Mild wheeze audible. ABDOMEN: Soft and nontender. No distention. No organomegaly. EXTREMITIES: Bilateral lower extremity edema. NEUROLOGIC: Awake, alert, verbal, and follows commands. LABORATORY DATA: Reviewed. WBC 14.3, RBC 4.22, hemoglobin 9.7, hematocrit 32.4, and platelets 411. Sodium 130, potassium 4.1, chloride 86, carbon dioxide 39, anion gap 9, BUN 30, creatinine 1, GFR 55, POC glucose 150 and random glucose 175. Uric acid 4.2. Calcium 8.4. IMPRESSION AND PLAN: Lung cancer non-small cell, chronic obstructive lung disease, gastroesophageal reflux disease, hyperthyroidism, obesity, anemia, sleep apnea syndrome. Spoke to therapist to report the patient with orthostatic hypotension. We will order orthostatic blood pressure every 8 hours. Continue steroids. We will order abdominal binder to be used during therapy to help with hypotension. We will order thromboembolic disease stockings. Continue Cepacol throat lozenges. Continue antibiotic per Infectious Disease. Continue inhaled bronchodilators. Continue bilevel positive airway pressure while sleeping, gastric prophylaxis, and deep venous thrombosis prophylaxis. Continue diuretics. Sleep apnea precautions, head of bed elevated at 45 degrees. Will increase steroids to Solumedrol 40mg BID due to increase wheeze and rhonchi today. Will order ProBNP today. Procalcitonin pending. This patient is seen and examined with Dr. Feliz. Discussed assessment and plan as described above. Thank you for this consult. We will follow with you. Juan Richardson APN Hussein Feliz MD DAVID
[2018-09-13] MEDS: Insulin Detemir 100 units/ml Vial (Levemir) SC SCH (22:03)
[2018-09-14] MEDS: Albuterol-Ipratrop 3 mg / 0.5 (3 ml) UD IH SCH ×7 (04:45→23:38)
[2018-09-14] MEDS: Aztreonam 1 Gm in NS 100mL 100 ML IVPB SCH ×2 (05:43→17:48)
[2018-09-14] MEDS: Enoxaparin 40 mg Syringe SC SCH (05:43)
[2018-09-14] MEDS: Levothyroxine 125 MCG TAB PO SCH (05:45)
[2018-09-14] MEDS: Pantoprazole 40 mg EC Tab PO SCH (05:45)
[2018-09-14 06:48] LABS: PH,URINE 6.5 (4.7-8.0); URINE BILIRUBIN NEGATIVE (NEGATIVE); URINE BLOOD NEGATIVE (NEGATIVE); URINE GLUCOSE (UA) 500 mg/dL (NEGATIVE); URINE LEUKOCYTE ESTERASE NEGATIVE Leu/uL (NEGATIVE); URINE PROTEIN NEGATIVE mg/dL (<30 mg/dL); URINE UROBILINOGEN 0.2 E.U./dL (<1 E.U./dL)
[2018-09-14 06:54] LABS: URINE COLOR YELLOW (YELLOW)
[2018-09-14 06:55] LABS: URINE APPEARANCE CLEAR (CLEAR)
[2018-09-14] MEDS: SULFAMETHOXAZOLE IVPB SCH ×3 (06:55→21:40)
[2018-09-14] MEDS: DEXTROSE 5% IVPB SCH ×3 (06:55→21:40)
[2018-09-14] MEDS: MethylPREDNISolone 40 mg Vial IVP SCH ×2 (06:55→17:50)
[2018-09-14] MEDS: WATER IVPB SCH ×3 (06:55→21:40)
[2018-09-14] MEDS: TRIMETHOPRIM IVPB SCH ×3 (06:55→21:40)
[2018-09-14] MEDS: Insulin Lispro 1 UNITS/0.01 ML SC SCH ×3 (06:56→16:36)
[2018-09-14] MEDS: Insulin Lispro (humaLOG) LOW Coverage SC SCH ×4 (06:57→21:41)
[2018-09-14 07:01] LABS: ALB/GLOB RATIO 0.9 (1.1-1.8); ALBUMIN 2.6 g/dL (3.0-4.8); ALT/SGPT 77 U/L (7-56); AST/SGOT 33 U/L (14-36); BLOOD UREA NITROGEN 33 mg/dL (7-21); GFR NON-AFRICAN AMERICAN > 60
--- NOTE | 2018-09-14 07:49 | PN ---
DATE: 09/13/2018 ENDOCRINOLOGY FOLLOWUP NOTE LOCATION: She is in the room 321, TCU. This is a 68-year-old female with recent admission for acute pneumonitis and received IV antibiotic management and is also being followed closely for metabolic management with recent exacerbation of COPD and currently on Solu-Medrol at 20 mg IV every 12 hours as given. Her glucose values are fluctuating, but improved. The glucose levels have ranged from 152 to 226 mg/dL. Her chemistry showed a BUN of 30, sodium 130, potassium 4.1, chloride 86, CO2 of 39, glucose 175, and creatinine 1. So at this time, we will continue to modify basal and bolus insulin regimen and increase the Levemir to 34 units subcu at bedtime daily to start tonight. We will also continue the Humalog given as 14 units subcu t.i.d. before meals to start today as ordered. We will modify the coverage scale to obviate hypoglycemia, and detailed orders have been given. We will obtain serial chemistries and supplement accordingly as needed. We will follow. Crystal Mcgregor MD
[2018-09-14 07:53] LABS: BASO # 0.03 K/mm3 (0.0-2.0); BASO % 0.2 % (0.0-3.0); HEMOGLOBIN 9.6 g/dL (12.0-16.0); LYMPH # 0.9 (1.2-3.4); LYMPH % 5.5 % (22.0-35.0); MEAN CELL VOLUME 76.3 fl (80.0-105.0); MEAN CORPUSCULAR HGB CONC 30.2 g/dl (31.0-37.0); MEAN PLATELET VOLUME 10.4 fl (7.0-11.0); MONO # 0.3 (0.1-0.6); MONO % 2.1 % (1.0-6.0); RBC 4.17 10^6/uL (3.5-6.1); RED CELL DISTRIBUTION WIDTH 25.3 % (11.5-14.5)
[2018-09-14] MEDS: Budesonide 0.25 mg/2 ml Inhal Susp UD IH SCH ×2 (08:31→19:54)
[2018-09-14] MEDS: Arformoterol 15 mcg/2 ml Inh Sol IH SCH ×2 (08:31→19:54)
[2018-09-14] MEDS: Acetylcysteine 20% Inhal Soln (4ml) IH SCH ×2 (08:31→19:54)
[2018-09-14] MEDS: Mupirocin 2% Ointment 15 GM TUBE NS SCH (10:37)
[2018-09-14] MEDS: CRIZOTINIB 250 MG PO SCH ×2 (10:38→17:49)
[2018-09-14] MEDS ORDERED: Tolvaptan 15 MG TAB PO ONE (11:40)
--- NOTE | 2018-09-14 13:51 | CP.PCM.PN ---
Subjective - Date & Time of Evaluation Date of Evaluation: 09/14/18 Time of Evaluation: 09:05 - Subjective Subjective: Patient feels a little less short of breath, no fevers, not in distress. Objective - Vital Signs/Intake and Output Vital Signs (last 24 hours): Temp Pulse Resp BP Pulse Ox 97.5 F L 66 20 114/56 L 92 L 09/12/18 19:18 09/13/18 08:32 09/12/18 19:18 09/13/18 08:04 09/12/18 16:00 - Medications Medications: Current Medications Acetylcysteine (Acetylcysteine 20%) 4 ml IH BIDRESP JOHN; Protocol Last Admin: 09/13/18 08:15 Dose: 4 ml Albuterol/Ipratropium (Duoneb 3 Mg/0.5 Mg (3 Ml) Ud) 3 ml IH [id number] JOHN; Protocol Last Admin: 09/13/18 11:15 Dose: 3 ml Arformoterol Tartrate (Brovana) 15 mcg IH [id number] JOHN; Protocol Last Admin: 09/13/18 08:15 Dose: 15 mcg Aspirin (Aspirin Chewable) 81 mg PO 0800 JOHN; Protocol Last Admin: 09/13/18 08:02 Dose: 81 mg Atorvastatin Calcium (Lipitor) 40 mg PO DAILY JOHN; Protocol Last Admin: 09/13/18 10:24 Dose: 40 mg Budesonide (Pulmicort Respules) 0.25 mg IH [id number] JOHN; Protocol Last Admin: 09/13/18 08:15 Dose: 0.25 mg Al Hydrox/Mg Hydrox/Simethicone 30 ml/Diphenhydramine HCl 75 mg/Lidocaine 30 ml 0 ml PO Q2H PRN; Protocol PRN Reason: Mouth/Throat Pain Dextrose (Dextrose 50% Inj) 0 ml IV STAT PRN; Protocol PRN Reason: Hypoglycemia Protocol Enoxaparin Sodium (Lovenox) 40 mg SC 0600 JOHN; Protocol Last Admin: 09/13/18 05:30 Dose: 40 mg Ferrous Sulfate (Feosol) 324 mg PO 0800,1800 JOHN; Protocol Last Admin: 09/13/18 08:03 Dose: 324 mg Furosemide (Lasix) 40 mg IVP 0600,1800 JOHN; Protocol Last Admin: 09/13/18 05:32 Dose: 40 mg Home Med (Home Med) 1 unit PO BID JOHN Last Admin: 09/13/18 10:23 Dose: 1 unit Trimethoprim/Sulfamethoxazole (240 mg/ Dextrose) 500 mls @ 166.667 mls/hr IVPB Q8H JOHN; Protocol Last Admin: 09/13/18 05:29 Dose: 166.667 mls/hr Dextrose (Dextrose 5% In Water 1000 Ml) 1,000 mls @ 0 mls/hr IV .Q0M PRN; Andrey col PRN Reason: Hypoglycemia Protocol Aztreonam (Azactam 1 Gm) 100 mls @ 100 mls/hr IVPB Q12 JOHN; Protocol Stop: 09/20/18 13:16 Insulin Detemir (Levemir) 34 unit SC HS [facility]; Protocol Last Admin: 09/12/18 22:08 Dose: 34 units Insulin Human Lispro (Humalog) 14 units SC AC [facility] [place]; Protocol Last Admin: 09/13/18 12:21 Dose: 14 units Insulin Human Lispro (Humalog Low) 0 units SC ACHS [facility] [place]; Protocol Last Admin: 09/13/18 12:24 Dose: 4 unit Levothyroxine Sodium (Synthroid) 125 mcg PO 0630 [facility] [place]; Protocol Last Admin: 09/13/18 05:32 Dose: 125 mcg Methylprednisolone (Solu-Medrol) 20 mg IVP 0600,1800 JOHN; Protocol Last Admin: 09/13/18 05:32 Dose: 20 mg Metolazone (Zaroxolyn) 5 mg PO DAILY [facility] [place]; Protocol Metoprolol Tartrate (Lopressor) 25 mg PO 0800,1800 JOHN; Protocol Last Admin: 09/13/18 08:04 Dose: Not Given Mupirocin (Bactroban Ointment) 1 gm NS DAILY [facility] [place]; Protocol Stop: 09/22/18 10:01 Last Admin: 09/13/18 10:22 Dose: 1 applic Pantoprazole Sodium (Protonix Ec Tab) 40 mg PO 0630 JOHN; Protocol Last Admin: 09/13/18 05:31 Dose: 40 mg Spironolactone (Aldactone) 25 mg PO BID [facility] [place]; Protocol Last Admin: 09/12/18 17:40 Dose: 25 mg - Labs Labs: 09/13/18 06:30 09/13/18 06:30 - Constitutional Appears: Chronically Ill - Head Exam Head Exam: NORMAL INSPECTION - Neck Exam Neck Exam: absent: Meningismus - Respiratory Exam Respiratory Exam: Decreased Breath Sounds, Rales (scattered) - Cardiovascular Exam Cardiovascular Exam: +S1, +S2 - GI/Abdominal Exam GI & Abdominal Exam: Soft. absent: Tenderness - Extremities Exam Additional comments: both legs with dressings in place Assessment and Plan - Assessment and Plan (Free Text) Plan: Assessment bilteral alveolar infiltrates, R/O atypical pneumonia new onset leukocytosis R/O new onset sepsis history of probable right sided HCAP associated with lung mass lung cancer, non-small cell, stage 4 morbid obesity with BMI 40 dyslipidemia colon cancer Plan continue Bactrim IV day 5 and added Aztreonam day 2 and follow up repeat blood, urine cx, sputum cx from yesterday; PCT is only 0.26; Fungitell is positive which may suggest PJP since patient is on chronic steroids; follow up Galactommanan, Histoplasma test, Aspergillus antigen test is negative, follow up Adenovirus work up, EBV and CMV tests; serum Crypt Ag is not detected Overall prognosis is poor will continue to monitor clinically discussed with Dr. Adames
--- NOTE | 2018-09-14 14:05 | CP.PCM.PN ---
<Dejuan Garvey - Last Filed: 09/14/18 14:02> Subjective - Date & Time of Evaluation Date of Evaluation: 09/14/18 Time of Evaluation: 14:02 - Subjective Subjective: PGY-2 heme/onc progress note for Dr Adames No acute events noted overnight. Patient states dizziness is there but slightly better compared to yesterday. Still with sob on ambulation. Complained of not having a bowel movement. Swelling in LE slightly better. Objective - Vital Signs/Intake and Output Vital Signs (last 24 hours): Temp Pulse Resp BP Pulse Ox 97.8 F 70 20 98/58 L 92 L 09/13/18 16:00 09/14/18 04:45 09/13/18 16:00 09/13/18 16:00 09/13/18 16:00 - Medications Medications: Current Medications Acetylcysteine (Acetylcysteine 20%) 4 ml IH BIDRESP JOHN; Protocol Last Admin: 09/14/18 08:31 Dose: 4 ml Albuterol/Ipratropium (Duoneb 3 Mg/0.5 Mg (3 Ml) Ud) 3 ml IH [id number] JOHN; Protocol Last Admin: 09/14/18 08:31 Dose: 3 ml Arformoterol Tartrate (Brovana) 15 mcg IH [id number] JOHN; Protocol Last Admin: 09/14/18 08:31 Dose: 15 mcg Aspirin (Aspirin Chewable) 81 mg PO 0800 JOHN; Protocol Last Admin: 09/14/18 08:25 Dose: 81 mg Atorvastatin Calcium (Lipitor) 40 mg PO DAILY JOHN; Protocol Last Admin: 09/14/18 11:00 Dose: 40 mg Benzocaine/Menthol (Cepacol Sore Throat) 1 ari MT Q2H PRN PRN Reason: Sore Throat Budesonide (Pulmicort Respules) 0.25 mg IH [id number] JOHN; Protocol Last Admin: 09/14/18 08:31 Dose: 0.25 mg Al Hydrox/Mg Hydrox/Simethicone 30 ml/Diphenhydramine HCl 75 mg/Lidocaine 30 ml 0 ml PO Q2H PRN; Protocol PRN Reason: Mouth/Throat Pain Last Admin: 09/13/18 17:41 Dose: 30 bottle Dextrose (Dextrose 50% Inj) 0 ml IV STAT PRN; Protocol PRN Reason: Hypoglycemia Protocol Docusate Sodium (Colace) 100 mg PO TID JOHN Last Admin: 09/14/18 10:37 Dose: 100 mg Enoxaparin Sodium (Lovenox) 40 mg SC 0600 JOHN; Protocol Last Admin: 09/14/18 05:43 Dose: 40 mg Ferrous Sulfate (Feosol) 324 mg PO 0800,1800 JOHN; Protocol Last Admin: 09/14/18 08:26 Dose: 324 mg Furosemide (Lasix) [address] [facility] Home Med (Home Med) 1 unit PO BID JOHN Last Admin: 09/14/18 10:38 Dose: 1 unit Trimethoprim/Sulfamethoxazole (240 mg/ Dextrose) 500 mls @ 166.667 mls/hr IVPB Q8H JOHN; Protocol Last Admin: 09/14/18 06:55 Dose: 166.667 mls/hr Dextrose (Dextrose 5% In Water 1000 Ml) 1,000 mls @ 0 mls/hr IV .Q0M PRN; Protocol PRN Reason: Hypoglycemia Protocol Aztreonam (Azactam 1 Gm) 100 mls @ 100 mls/hr IVPB 0600,1800 JOHN; Protocol Stop: 09/20/18 18:01 Last Admin: 09/14/18 05:43 Dose: 100 mls/hr Insulin Detemir (Levemir) 40 unit SC HS JOHN; Protocol Insulin Human Lispro (Humalog) 14 units SC AC JOHN; Protocol Last Admin: 09/14/18 12:30 Dose: 14 units Insulin Human Lispro (Humalog Low) 0 units SC ACHS JOHN; Protocol Last Admin: 09/14/18 12:41 Dose: 4 unit Ipratropium [place] (Atrovent) 0.5 mg IH BIDRESP JOHN Levothyroxine Sodium (Synthroid) 125 mcg PO 0630 JOHN; Protocol Last Admin: 09/14/18 05:45 Dose: 125 mcg Methylprednisolone (Solu-Medrol) 40 mg IVP 0600,1800 JOHN; Protocol Last Admin: 09/14/18 06:55 Dose: 40 mg Metolazone (Zaroxolyn) [address] [facility]; Protocol Last Admin: 09/14/18 10:39 Dose: 5 mg Metoprolol Tartrate (Lopressor) 25 mg PO 0800,1800 JOHN; Protocol Last Admin: 09/13/18 08:04 Dose: Not Given Mupirocin (Bactroban Ointment) [address] [facility]; Protocol Stop: 09/22/18 10:01 Last Admin: 09/14/18 10:37 Dose: 1 applic Pantoprazole Sodium (Protonix Ec Tab) 40 mg PO 0630 JOHN; Protocol Last Admin: 09/14/18 05:45 Dose: 40 mg Spironolactone (Aldactone) 25 mg PO BID JOHN; Protocol Last Admin: 09/12/18 17:40 Dose: 25 mg - Labs Labs: 09/14/18 06:15 09/14/18 06:15 - Additional Findings Additional findings: - Head Exam Head Exam: NORMAL INSPECTION - Additional Findings Additional findings: - Constitutional Appears: Well, Non-toxic, No Acute Distress - Head Exam Head Exam: ATRAUMATIC, NORMAL INSPECTION - Eye Exam Eye Exam: EOMI, Normal appearance, PERRL. absent: Scleral icterus - ENT Exam ENT Exam: Mucous Membranes Moist - Respiratory Exam Respiratory Exam: Wheezes, NORMAL BREATHING PATTERN - Cardiovascular Exam Cardiovascular Exam: Tachycardia, REGULAR RHYTHM, +S1, +S2. absent: JVD - GI/Abdominal Exam GI & Abdominal Exam: Normal Bowel Sounds, Soft. absent: Tenderness - Extremities Exam Extremities exam: Positive for: normal capillary refill, pedal edema, pedal pulses present - Neurological Exam Neurological exam: Alert, Oriented x3 - Psychiatric Exam Psychiatric exam: Normal Affect - Skin Skin Exam: Dry, Normal Color, Warm Assessment and Plan - Assessment and Plan (Free Text) Plan: Mrs White is a 68 year old female with a PMHx of unresectable stage III NSCLC with an ALK mutation, COPD, CHF, ASCVD, hx of colon cancer with resection stage 2, KS, AFib (now resolved), anemia of chronic disease, low vitamin D, obesity who present for shortness of breath and dry cough: #Right Upper Lobe Infiltrate 2/2 Radiation Induced or Superimposed HCAP #unresectable stage IIIb non-small cell carcinoma of the lung, currently on r adiation #Decompensated CHF, Predominantly right-sided, acute on chronic combined systolic and diastolic #Hyponatremia #Iron Deficiency Anemia #sleep apnea syndrome #morbid obesity #Hx of NSTEMI -completed radiation with Dr Sarah Sinha on 09/12/18 to open up the passage of the right mainstem; still waiting for results from [employer] assay for next generation sequencing from Dr Hobbs's office; currently on crizotinib (xalkori) 250mg po bid -to treat her shortness of breath as well as LE edema we'll give her brovana 15mcg ih q12h, budesonide 0.25mg ih q12h, duoneb q4h prn, acetylcysteine 3ml ih bid, lasix 40mg ivp bid (on hold), solumedrol 40mg ivp q12h, aldactone 25mg po bid (on hold), potassium 20meq po bid, metolazone 5mg po qd for 3 days (started 09/11) * it appears everytime she has her lasix discontinued or reduced she has a re- accumulation of fluid * 09/13: patient experiencing increasing dizziness - Dr Perea held her diuretics including lasix, and spironolactone - plan is to hold for the next 2 days - currently she is only on metolazone 5mg po qd -continue home meds lipitor 40mg po qd, synthroid 125mcg po qd, metoprolol tartrate 25mg po bid, pregabalin 25mg po bid (on hold), aspirin 81mg po qd, crizotinib 250mg po bid (to treat her lung cancer) -empiric abx coverage wth cefepime 2g ivp q8h (started 09/05 and now discontinued), blood cx negative up to date, procalc negative, now on sulfamethoxazole/trimethoprim 240mg ivpb q8h (started 09/09) - we'll need to mo nitor her kidney function and now on aztreonam 1g ivpb q12h (started 09/13) * f/u adenovirus pcr, aspergillus testing, cmv pcr, cryptococcus ag, ebg ab, fungitell (1-3) b-d glucan, parainfluenza virus, rsv ag * b-d glucan came back positive -chest CT w/o contrast 09/08: There is a diffuse alveolar infiltrate in both upper lobes and the right lower lobe. There is a patchy infiltrate in the left lower lobe. Findings are most consistent with pneumonia. There is a 2 x 3.4 cm mass in the right lower lobe adjacent to the inferior hilum. Mediastinal adenopathy * Dr Sarah Sinha believes lung parenchyma show a pattern that looks similar to ILD versus lymphangitic carcinomatosis and that Pathology would be the only way to discern and rule out causes. -tolvaptan 15mg po given on 09/14 to treat hyponatremia -insulin levemir 34u schs and lispro 14u sc ac -ppx with lovenox 40mg sc qd and protonix 40mg po qd -cpap while sleeping -head of bed at 30 degrees -iron 17, tibc 222, %sat 8, ferritin level 154, b12 normal and folate normal, she is on feosol 324mg po bid -on colace 100mg po tid and miralax 17g po bid to treat constipation -pulmonary consult, Dr Feliz and cardio consult, Dr Perea, ID Dr Rooney, and Nephrology consult Dr Jang for fluid management Dispo: currently in TCU; PT recs home with services <Gabby Adames - Last Filed: 09/15/18 19:12> Objective - Vital Signs/Intake and Output Vital Signs (last 24 hours): Temp Pulse Resp BP Pulse Ox 97.4 F L 76 20 109/63 92 L 09/15/18 16:00 09/15/18 16:38 09/15/18 16:00 09/15/18 16:00 09/15/18 16:38 - Medications Medications: Current Medications Acetylcysteine (Acetylcysteine 20%) 4 ml IH BIDRESP JOHN; Protocol Last Admin: 09/15/18 08:40 Dose: 4 ml Albuterol/Ipratropium (Duoneb 3 Mg/0.5 Mg (3 Ml) Ud) 3 ml IH [id number] JOHN; Protocol Last Admin: 09/15/18 16:20 Dose: 3 ml Arformoterol Tartrate (Brovana) 15 mcg IH [id number] JOHN; Protocol Last Admin: 09/15/18 08:40 Dose: 15 mcg Aspirin (Aspirin Chewable) 81 mg PO 0800 JOHN; Protocol Last Admin: 09/15/18 08:00 Dose: 81 mg Atorvastatin Calcium (Lipitor) 40 mg PO DAILY JOHN; Protocol Last Admin: 09/15/18 10:19 Dose: 40 mg Benzocaine/Menthol (Cepacol Sore Throat) 1 ari MT Q2H PRN PRN Reason: Sore Throat Budesonide (Pulmicort Respules) 0.25 mg IH [id number] JOHN; Protocol Last Admin: 09/15/18 08:40 Dose: 0.25 mg Al Hydrox/Mg Hydrox/Simethicone 30 ml/Diphenhydramine HCl 75 mg/Lidocaine 30 ml 0 ml PO Q2H PRN; Protocol PRN Reason: Mouth/Throat Pain Last Admin: 09/13/18 17:41 Dose: 30 bottle Dextrose (Dextrose 50% Inj) 0 ml IV STAT PRN; Protocol PRN Reason: Hypoglycemia Protocol Docusate Sodium (Colace) [address] [facility] Last Admin: 09/15/18 17:48 Dose: 100 mg Enoxaparin Sodium (Lovenox) 40 mg SC 0600 JOHN; Protocol Last Admin: 09/15/18 05:29 Dose: 40 mg Ferrous Sulfate (Feosol) 324 mg PO 0800,1800 JOHN; Protocol Last Admin: 09/15/18 17:49 Dose: 324 mg Furosemide (Lasix) [address] [facility] Last Admin: 09/15/18 10:19 Dose: Not Given Home Med (Home Med) [address] [facility] Last Admin: 09/15/18 17:49 Dose: 1 unit Trimethoprim/Sulfamethoxazole (240 mg/ Dextrose) 500 mls @ 166.667 mls/hr IVPB Q8H JOHN; Protocol Last Admin: 09/15/18 13:52 Dose: 166.667 mls/hr Dextrose (Dextrose 5% In Water 1000 Ml) 1,000 mls @ 0 mls/hr IV .Q0M PRN; Protocol PRN Reason: Hypoglycemia Protocol Aztreonam (Azactam 1 Gm) 100 mls @ 100 mls/hr IVPB 0600,1800 JOHN; Protocol Stop: 09/20/18 18:01 Last Admin: 09/15/18 17:48 Dose: 100 mls/hr Insulin Detemir (Levemir) [address] [facility]; Protocol Last Admin: 09/14/18 21:42 Dose: 40 units Insulin Human Lispro (Humalog) [address] [facility]; Protocol Last Admin: 09/15/18 17:50 Dose: 14 units Insulin Human Lispro (Humalog Low) [address] [facility]; Protocol Last Admin: 09/15/18 17:51 Dose: 2 unit Levothyroxine Sodium (Synthroid) 125 mcg PO 0630 JOHN; Protocol Last Admin: 09/15/18 05:30 Dose: 125 mcg Methylprednisolone (Solu-Medrol) 40 mg IVP 0600,1800 JOHN; Protocol Last Admin: 09/15/18 17:55 Dose: 40 mg Metoprolol Tartrate (Lopressor) 25 mg PO 0800,1800 JOHN; Protocol Last Admin: 09/13/18 08:04 Dose: Not Given Mupirocin (Bactroban Ointment) 1 gm NS DAILY JOHN; Protocol Stop: 09/22/18 10:01 Last Admin: 09/15/18 10:17 Dose: 1 applic Pantoprazole Sodium (Protonix Ec Tab) 40 mg PO 0630 JOHN; Protocol Last Admin: 09/15/18 05:30 Dose: 40 mg Polyethylene Glycol (Miralax) 17 gm PO BID JOHN Last Admin: 09/15/18 17:52 Dose: 17 gm Spironolactone (Aldactone) 25 mg PO DAILY JOHN; Protocol - Labs Labs: 09/15/18 06:20 09/15/18 06:20 Attending/Attestation - Attestation I have personally seen and examined this patient.: Yes I have fully participated in the care of the patient.: Yes I have reviewed all pertinent clinical information, including history, physical exam and plan: Yes
--- NOTE | 2018-09-14 14:18 | PN ---
DATE: 09/14/2018 PULMONARY PROGRESS NOTE REFERRING PHYSICIAN: Gerard Gibson MD SUBJECTIVE: The patient is sitting up in bed. Reports feeling better this morning. Shortness of breath has improved slightly. No headache, rhinitis, chest pain, abdominal pain, nausea, vomiting, diarrhea, leg pain reported. Bilateral lower extremity wrapped with JOESPH bandages. Denies any dizziness this morning. Denies any coughing. Does have leg swelling. OBJECTIVE: GENERAL: No acute distress. VITAL SIGNS: Blood pressure during visit 136/66, pulse 78 and temperature 98. HEENT: Moist mucous membranes. Mallampati score of 4. Crowded airway. NECK: Supple. No JVD. LUNGS: Rhonchi bilaterally. CARDIOVASCULAR: S1 and S2, audible. ABDOMEN: Soft and nontender. No distention. No organomegaly. EXTREMITIES: Bilateral lower extremity edema. JOESPH wraps in place. NEUROLOGIC: Awake, alert and verbal. Follows commands. MEDICATIONS: Reviewed. Mucomyst 4 mL inhalation twice a day, Magic mouthwash every 2 hours p.r.n., DuoNeb 3 mL inhalation every 4 hours, Brovana 15 mcg every 12 hours, aspirin 81 mg daily, Lipitor 40 mg daily, Azactam 1 g twice a day, Cepacol throat lozenges every 2 hours p.r.n., Pulmicort 0.25 mg inhalation every 12 hours, Colace 100 mg 3 times a day, Lovenox 40 mg daily, ferrous sulfate 324 mg twice a day, Lasix 40 mg twice a day, Levemir 34 units subcutaneous at bedtime, Humalog sliding scale a.c. and at bedtime, Humalog 14 units subcutaneous a.c.,Synthroid 125 mcg daily, Solu-Medrol 40 mg twice a day, metolazone 5 mg daily, metoprolol tartrate 25 mg twice a day, Bactroban nasally daily, Protonix 40 mg daily, Aldactone 25 mg twice a day, Bactrim 240 mg every 8 hours. LABORATORY DATA: Reviewed WBC 16.0, RBC 4.17, hemoglobin 9.6, hematocrit 31.8, and platelets 396. Sodium 125, potassium 4.4, chloride 85, carbon dioxide 36, anion gap 8, BUN 33, creatinine 0.8, GFR greater than 60, POC glucose 268 and random glucose 220, calcium 8.0, total bilirubin 0.4, AST 33, ALT 77, alkaline phosphatase 140, proBNP 108. Procalcitonin 0.26. Total protein 5.6, albumin 2.6, globulin 3.0, albumin-globulin ratio 0.9. Urinalysis showed urine glucose 500. IMPRESSION AND PLAN: Lung cancer non-small cell, chronic obstructive lung disease, gastroesophageal reflux disease, hypothyroidism, obesity, anemia, sleep apnea syndrome. The patient does have some complain of cardiac diastolic dysfunction, pulmonary hypertension, benefits from diuretics. Continue diuretics, even though proBNP is negative. Continue inhaled bronchodilators, antibiotic therapy per Infectious Disease. Continue bilevel positive airway pressure use at bedtime, sleep apnea precaution, head of bed elevated at 45 degrees, gastric prophylaxis, deep venous thrombosis prophylaxis. We will add Atrovent nebulizer treatment twice a day, continue pulmonary toileting. We will do swallow evaluation to evaluate for aspiration. Continue physical therapy. This patient is seen and examined with Dr. Feliz. Discussed assessment and plan as described above. Thank you for this consult and we will follow with you. Juan Richardson APN Hussein Feliz MD DAVID
[2018-09-14] MEDS: POLYETHYLENE GLYCOL 3350 17 GM/Dose PACKET PO SCH (17:50)
--- NOTE | 2018-09-14 17:50 | PN ---
DATE: 09/14/2018 SUBJECTIVE: The patient is seen sitting in bed. She is awake, she is alert. She is comfortable. She reports that when she stood up for the orthostatic vital signs, she was a little dizzy. It was less than yesterday but she was still dizzy. PHYSICAL EXAMINATION: GENERAL: Morbidly obese elderly lady sitting in bed. VITAL SIGNS: Blood pressure 148/60 lying down 134/54 sitting, and 118/60 standing up. HEENT: Normocephalic, atraumatic, positive pallor. NECK: Supple, no JVD. LUNGS: Bilateral rhonchi, bilateral equal expansion. CARDIAC: S1, S2, regular rate and rhythm, no murmur, no rub. ABDOMEN: Obese, distended, soft, nontender, bowel sounds present. EXTREMITIES: Erythema of the lower extremities, 2+ pitting edema. Intake and output not charted. LABORATORY DATA: WBC 16, hemoglobin 9.6, hematocrit 32, platelets 396. Sodium 125, potassium 4.4, chloride 85, CO2 36, BUN 33, creatinine 0.8, glucose 228, calcium 8, AST 33, ALT 77, albumin 2.6. Corrected calcium is 9. Urine sodium 28, urine osmolality 575. Uric acid 4.2. CURRENT MEDICATIONS: Aldactone 25 b.i.d. on hold, aspirin, Atrovent, Azactam 1 g daily Bactroban, Brovana, Colace, Feosol, insulin, Lasix 40 IV daily, Levemir, Lipitor, Lopressor, Lovenox, Protonix, Solu-Medrol 40 IV every 12 hours, Synthroid, Bactrim, Zaroxolyn 5. ASSESSMENT: 1. Stage IV non-small cell cancer of the lung. 2. Chronic obstructive pulmonary disease. 3. Morbid obesity. 4. History of colon cancer status post resection. 5. Edema. 6. Orthostatic hypotension. 7. Hyponatremia. PLAN: 1. In light of her orthostatic hypotension, will hold Lasix. 2. Workup of her hyponatremia is consistent with SIADH, therefore, I will give her Samsca one dose which will help her diurese. 3. Antibiotics and steroids as per ID and Pulmonary. 4. Daily weights. 5. Monitor electrolytes. Tamiko Jang MD
[2018-09-14] MEDS: Ipratropium 0.02% Inhal Soln (0.5 mg/2.5 ml) UD IH SCH (19:57)
[2018-09-14] MEDS: Insulin Detemir 100 units/ml Vial (Levemir) SC SCH (21:42)
--- NOTE | 2018-09-14 22:45 | PN ---
DATE: 09/14/2018 SUBJECTIVE: The patient is seen sitting in bed on transitional care unit. She has had less dizziness today. Her diuretics remain on hold. Her current medications include Mucomyst, aspirin, Atrovent, Azactam, Brovana, DuoNeb inhaler, ferrous sulfate, insulin, Lipitor, metoprolol, Lovenox, Protonix, Solu-Medrol, Pulmicort, Synthroid. OBJECTIVE/PHYSICAL EXAMINATION: GENERAL: She is a obese middle-aged woman. VITAL SIGNS: Blood pressure is 100/60 with a pulse of 86, respirations are 14. She is afebrile. HEENT: No JVD. CHEST: Bilateral scattered rhonchi. HEART: PMI displaced laterally with systolic murmur at lower left sternal border. ABDOMEN: Soft, obese, nontender with bowel sounds. EXTREMITIES: 1 to 2 + leg edema. DIAGNOSTIC DATA: Sodium is 125, BUN and creatinine 33 and 0.8, potassium 4.4, glucose is 220. White count 16, hemoglobin and hematocrit 9.6 and 31.8 with platelet count of 396,000. IMPRESSION: 1. Recent dizziness, possibly due to excessive diuretic use. 2. Decompensated congestive heart failure, prominent, right sided with persistent volume overload. 3. Advanced lung cancer. 4. Chronic obstructive pulmonary disease. 5. Chronic anemia. RECOMMENDATIONS: Diuretics will remain on hold for today. Compression stocking use is advised. Followup BMP will be checked in the morning and if her sodium remains low, consideration will be given to addition of tolvaptan for short term use. Continue sodium and fluid restriction is advised. We will continue to follow and make further recommendations as appropriate. Vidal Fong MD
--- NOTE | 2018-09-15 00:11 | PN ---
DATE: 09/14/2018 ENDOCRINOLOGY FOLLOWUP NOTE LOCATION: Room 321. SUBJECTIVE: This is a 68-year-old female with uncontrolled type 2 insulin-dependent diabetes, transferred to [facility] for diabetic management for metabolic management. Her glycemic levels are still fluctuating and suboptimal with glucose values ranging from 276 to 268 and 341 mg/dL. She is still on Solu-Medrol given as 20 mg IV push once daily as given. LABORATORY DATA: Her chemistries showed a BUN of 33, sodium 125, potassium 4.4, chloride 95, CO2 of 36, glucose 220, and creatinine 1.8. ASSESSMENT AND PLAN: At this time, we will continue the modified basal and bolus insulin regimen with Levemir to be given as higher dose of 40 units subcutaneously at bedtime daily to start tonight as ordered. We will continue the same prandial insulin with Humalog given as 14 units subcutaneously t.i.d. before meals as ordered. We will titrate incrementally as indicated to optimize metabolic control. We will follow with you. Crystal Mcgregor MD
[2018-09-15] MEDS: Albuterol-Ipratrop 3 mg / 0.5 (3 ml) UD IH SCH ×5 (03:37→20:40)
[2018-09-15] MEDS: Aztreonam 1 Gm in NS 100mL 100 ML IVPB SCH ×2 (05:28→17:48)
[2018-09-15] MEDS: Enoxaparin 40 mg Syringe SC SCH (05:29)
[2018-09-15] MEDS: Levothyroxine 125 MCG TAB PO SCH (05:30)
[2018-09-15] MEDS: Pantoprazole 40 mg EC Tab PO SCH (05:30)
[2018-09-15] MEDS: MethylPREDNISolone 40 mg Vial IVP SCH ×2 (05:30→17:55)
[2018-09-15] MEDS: DEXTROSE 5% IVPB SCH ×3 (05:58→21:45)
[2018-09-15] MEDS: WATER IVPB SCH ×3 (05:58→21:45)
[2018-09-15] MEDS: SULFAMETHOXAZOLE IVPB SCH ×3 (05:58→21:45)
[2018-09-15] MEDS: TRIMETHOPRIM IVPB SCH ×3 (05:58→21:45)
[2018-09-15] MEDS: Insulin Lispro 1 UNITS/0.01 ML SC SCH ×3 (06:58→17:50)
[2018-09-15] MEDS: Insulin Lispro (humaLOG) LOW Coverage SC SCH ×5 (06:58→21:47)
[2018-09-15 07:07] LABS: BASO # 0.02 K/mm3 (0.0-2.0); BASO % 0.1 % (0.0-3.0); HEMOGLOBIN 9.7 g/dL (12.0-16.0); LYMPH # 0.8 (1.2-3.4); LYMPH % 4.4 % (22.0-35.0); MEAN CORPUSCULAR HGB CONC 29.9 g/dl (31.0-37.0); MEAN PLATELET VOLUME 10.1 fl (7.0-11.0); MONO # 0.7 (0.1-0.6); MONO % 4.1 % (1.0-6.0); PLATELET COUNT 405 10^3/uL (120.0-450.0); RBC 4.21 10^6/uL (3.5-6.1); RED CELL DISTRIBUTION WIDTH 25.6 % (11.5-14.5); WHITE BLOOD COUNT 17.7 10^3/uL (4.5-11.0)
[2018-09-15 07:36] LABS: ALB/GLOB RATIO 0.9 (1.1-1.8); ALBUMIN 2.5 g/dL (3.0-4.8); ALT/SGPT 70 U/L (7-56); AST/SGOT 35 U/L (14-36); BLOOD UREA NITROGEN 31 mg/dL (7-21); CALCIUM 8.5 mg/dL (8.4-10.5); GFR NON-AFRICAN AMERICAN > 60
[2018-09-15 08:15] LABS: BAND 4 % (0-2); LARGE PLATELETS PRESENT; LYMPHOCYTE 1 % (22.0-35.0); MONOCYTE 4 % (1.0-6.0); NEUTROPHIL 91 % (50.0-70.0); PLATELET ESTIMATE HIGH (NORMAL)
[2018-09-15] MEDS: Acetylcysteine 20% Inhal Soln (4ml) IH SCH ×2 (08:40→20:40)
[2018-09-15] MEDS: Ipratropium 0.02% Inhal Soln (0.5 mg/2.5 ml) UD IH SCH (08:40)
[2018-09-15] MEDS: Arformoterol 15 mcg/2 ml Inh Sol IH SCH ×2 (08:40→20:40)
[2018-09-15] MEDS: Budesonide 0.25 mg/2 ml Inhal Susp UD IH SCH ×2 (08:40→20:40)
[2018-09-15] MEDS: Mupirocin 2% Ointment 15 GM TUBE NS SCH (10:17)
[2018-09-15] MEDS: CRIZOTINIB 250 MG PO SCH ×2 (10:18→17:49)
[2018-09-15] MEDS: POLYETHYLENE GLYCOL 3350 17 GM/Dose PACKET PO SCH ×2 (10:20→17:52)
--- NOTE | 2018-09-15 11:39 | PN ---
DATE: 09/15/2018 PULMONARY PROGRESS NOTE REFERRING PHYSICIAN: Gerard Gibson MD SUBJECTIVE: The patient is sitting up in bed. Reports feeling a little bit better today, still reports having shortness of breath with exertion. No headache, rhinitis, chest pain, abdominal pain, nausea, vomiting, diarrhea or leg pain reported. OBJECTIVE: GENERAL: No acute distress. VITAL SIGNS: Blood pressure 110/57, pulse 75 and afebrile. HEENT: Moist mucous membranes. Mallampati score of 4. Crowded airway. NECK: Supple. No JVD. LUNGS: Rhonchi bilaterally, mild wheezing. CARDIOVASCULAR: S1 and S2 audible. ABDOMEN: Soft and nontender. No distention. No organomegaly. EXTREMITIES: Bilateral lower extremity edema. NEUROLOGIC: Awake, alert and verbal. Follows commands. MEDICATIONS: Reviewed. Mucomyst 4 mL twice a day inhalation, Magic mouthwash every 2 hours p.r.n., DuoNeb 3 mL inhalation every 4 hours, Brovana 15 mcg every 12 hours, aspirin 81 mg daily, Lipitor 40 mg daily, Azactam 1 g twice a day, Cepacol throat lozenges every 2 hours p.r.n., Pulmicort 0.25 mg inhalation every 12 hours, Colace 100 mg 3 times a day, Lovenox 40 mg daily, ferrous sulfate 324 mg twice a day, Lasix 40 mg daily, Levemir 40 units subcutaneous at bedtime, Humalog sliding scale a.c. and at bedtime, Humalog 14 units subcutaneous a.c., Atrovent 0.5 mg inhalation twice a day, Synthroid 125 mcg daily, Solu-Medrol 40 mg twice a day, Lopressor 25 mg twice a day, Bactroban nasally daily, Protonix 40 mg daily, MiraLax 17 g twice a day, spironolactone 25 mg daily and Bactrim 240 mg every 8 hours. LABORATORY DATA: Reviewed. WBC 17.7, RBC 4.21, hemoglobin 9.7, hematocrit 32.4, and platelets 405. Sodium 131, potassium 4.8, chloride 92, carbon dioxide 37, anion gap 7, BUN 31, creatinine 0.8, GFR greater than 60, POC glucose 186, random glucose 147, total bilirubin 0.3, AST 35, ALT 70, alkaline phosphatase 134, total protein 5.4, albumin 2.5, globulin 2.8 and albumin-globulin ratio 0.9. Sputum cultures shows few epithelial cells, rare polymorphonuclear WBCs, many grams positive cocci in clusters, few gram positive cocci in chain, cultures pending. Blood cultures preliminary no growth after 24 hours. IMPRESSION AND PLAN: Lung cancer non-small cell, chronic obstructive lung disease, gastroesophageal reflux disease, hypothyroidism, obesity, anemia, sleep apnea syndrome. The patient does have some cardiac diastolic dysfunction, pulmonary hypertension. Continue diuretics, inhaled bronchodilators, antibiotic therapy per Infectious Disease. Continue bilevel positive airway pressure use at bedtime, sleep apnea precaution, gastric prophylaxis, deep venous thrombosis prophylaxis. The patient seen by speech therapy who noted that the patient does have mild pharyngeal dysphagia with low risk for aspiration due to multiple swallow. Aspiration precaution. The patient should have head of bed elevated while eating and drinking. We will order chest x-ray PA and lateral to followup with infiltrates. This patient is seen and examined with Dr. Feliz. Discussed assessment and plan as described above. Thank you for this consult and we will follow with you. Juan Richardson APN Hussein Feliz MD DAVID
--- NOTE | 2018-09-15 12:28 | PN ---
DATE: 09/15/2018 SUBJECTIVE: The patient is seen lying in bed in the Transitional Care Unit. She is comfortable. She has had no further dizziness. Leg edema is somewhat improved, especially utilizing lower extremity leg wrapping. She remains off diuretics. CURRENT MEDICATIONS: Include Mucomyst, aspirin, Atrovent, Azactam, Brovana, DuoNeb inhaler, insulin, Lipitor, metoprolol 25 mg b.i.d., Lovenox, Protonix, Pulmicort, Solu-Medrol, and Synthroid. OBJECTIVE: GENERAL: She is an overweight middle-aged woman. VITAL SIGNS: Blood pressure 102/60 with a pulse of 70, respirations are 14. She is afebrile. HEENT: No JVD. CHEST: Bilateral scattered rhonchi heard. HEART: PMI displaced laterally with systolic murmur in the left sternal border. ABDOMEN: Soft, obese, nontender, normoactive bowel sounds. EXTREMITIES: 1+ leg edema. DIAGNOSTIC DATA: Sodium is 131, potassium 4.8, BUN and creatinine 31 and 0.8. White count 17.7, hemoglobin and hematocrit 9.7 and 32.4 with platelet count of 405,000. IMPRESSION: 1. Decompensated congestive heart failure, predominantly right-sided, slowly improving. 2. Advanced lung cancer. 3. Chronic obstructive pulmonary disease. 4. Chronic anemia. 5. Recent dizziness, possibly due to excessive diuretic intake. 6. Hyponatremia, improved. RECOMMENDATIONS: Oral spironolactone and furosemide will be resumed. Potassium and renal function will be monitored. Continued compression stocking use or leg wrap use is advised. Gradual tapering of Solu-Medrol should help as well with prevention of further fluid retention. Increase activity was advised as able. We will follow along as needed. Vidal Fong MD
--- NOTE | 2018-09-15 14:43 | RAD ---
Date of service: 09/15/2018 HISTORY: follow up infiltrate COMPARISON: Comparison made with chest radiograph chest dated 09/05/2018 comparison also made with prior CT scans of the chest dated and 08/11/2018... TECHNIQUE: Chest PA and lateral FINDINGS: LUNGS: Re demonstrated is patchy infiltrate changes throughout the left lung in the right as well as in the right lung apex and right mid to lower lung.. Previously described right hilar mass is less well seen the 2 contrast-enhanced CT chest 08/11/2018. PLEURA: No significant pleural effusion identified. No pneumothorax apparent. CARDIOVASCULAR: No aortic atherosclerotic calcification present. Normal cardiac size. No pulmonary vascular congestion. OSSEOUS STRUCTURES: No significant abnormalities. VISUALIZED UPPER ABDOMEN: Normal. OTHER FINDINGS: None. IMPRESSION: Re demonstrated is patchy infiltrate changes throughout the left lung in the right as well as in the right lung apex and right mid to lower lung.. Previously described right hilar mass is less well seen the 2 contrast-enhanced CT chest 08/11/2018.
--- NOTE | 2018-09-15 15:47 | CP.PCM.PN ---
Subjective - Date & Time of Evaluation Date of Evaluation: 09/15/18 Time of Evaluation: 13:35 - Subjective Subjective: Comfortable on a chair, no SOB at rest, cough is slowly improving, no nausea currently. Objective - Vital Signs/Intake and Output Vital Signs (last 24 hours): Temp Pulse Resp BP Pulse Ox 97.8 F 70 20 98/58 L 92 L 09/13/18 16:00 09/14/18 04:45 09/13/18 16:00 09/13/18 16:00 09/13/18 16:00 - Medications Medications: Current Medications Acetylcysteine (Acetylcysteine 20%) 4 ml IH BIDRESP JOHN; Protocol Last Admin: 09/14/18 08:31 Dose: 4 ml Albuterol/Ipratropium (Duoneb 3 Mg/0.5 Mg (3 Ml) Ud) 3 ml IH [id number] JOHN; Protocol Last Admin: 09/14/18 08:31 Dose: 3 ml Arformoterol Tartrate (Brovana) 15 mcg IH [id number] JOHN; Protocol Last Admin: 09/14/18 08:31 Dose: 15 mcg Aspirin (Aspirin Chewable) 81 mg PO 0800 JOHN; Protocol Last Admin: 09/14/18 08:25 Dose: 81 mg Atorvastatin Calcium (Lipitor) 40 mg PO DAILY JOHN; Protocol Last Admin: 09/14/18 11:00 Dose: 40 mg Benzocaine/Menthol (Cepacol Sore Throat) 1 ari MT Q2H PRN PRN Reason: Sore Throat Budesonide (Pulmicort Respules) 0.25 mg IH [id number] JOHN; Protocol Last Admin: 09/14/18 08:31 Dose: 0.25 mg Al Hydrox/Mg Hydrox/Simethicone 30 ml/Diphenhydramine HCl 75 mg/Lidocaine 30 ml 0 ml PO Q2H PRN; Protocol PRN Reason: Mouth/Throat Pain Last Admin: 09/13/18 17:41 Dose: 30 bottle Dextrose (Dextrose 50% Inj) 0 ml IV STAT PRN; Protocol PRN Reason: Hypoglycemia Protocol Docusate Sodium (Colace) 100 mg PO TID JOHN Last Admin: 09/14/18 10:37 Dose: 100 mg Enoxaparin Sodium (Lovenox) 40 mg SC 0600 JOHN; Protocol Last Admin: 09/14/18 05:43 Dose: 40 mg Ferrous Sulfate (Feosol) 324 mg PO 0800,1800 JOHN; Protocol Last Admin: 09/14/18 08:26 Dose: 324 mg Furosemide (Lasix) 40 mg IVP DAILY [facility] Home Med (Home Med) 1 unit PO BID JOHN Last Admin: 09/14/18 10:38 Dose: 1 unit Trimethoprim/Sulfamethoxazole (240 mg/ Dextrose) 500 mls @ 166.667 mls/hr IVPB Q8H JOHN; Protocol Last Admin: 09/14/18 06:55 Dose: 166.667 mls/hr Dextrose (Dextrose 5% In Water 1000 Ml) 1,000 mls @ 0 mls/hr IV .Q0M PRN; Protocol PRN Reason: Hypoglycemia Protocol Aztreonam (Azactam 1 Gm) 100 mls @ 100 mls/hr IVPB 0600,1800 JOHN; Protocol Stop: 09/20/18 18:01 Last Admin: 09/14/18 05:43 Dose: 100 mls/hr Insulin Detemir (Levemir) 40 unit SC HS [facility]; Protocol Insulin Human Lispro (Humalog) 14 units SC AC JOHN; Protocol Last Admin: 09/14/18 12:30 Dose: 14 units Insulin Human Lispro (Humalog Low) 0 units SC ACHS [facility]; Protocol Last Admin: 09/14/18 12:41 Dose: 4 unit Ipratropium [place] (Atrovent) 0.5 mg IH BIDRESP JOHN Levothyroxine Sodium (Synthroid) 125 mcg PO 0630 JOHN; Protocol Last Admin: 09/14/18 05:45 Dose: 125 mcg Methylprednisolone (Solu-Medrol) 40 mg IVP 0600,1800 JOHN; Protocol Last Admin: 09/14/18 06:55 Dose: 40 mg Metolazone (Zaroxolyn) 5 mg PO DAILY [facility]; Protocol Last Admin: 09/14/18 10:39 Dose: 5 mg Metoprolol Tartrate (Lopressor) 25 mg PO 0800,1800 JOHN; Protocol Last Admin: 09/13/18 08:04 Dose: Not Given Mupirocin (Bactroban Ointment) 1 gm NS DAILY [facility]; Protocol Stop: 09/22/18 10:01 Last Admin: 09/14/18 10:37 Dose: 1 applic Pantoprazole Sodium (Protonix Ec Tab) 40 mg PO 0630 [facility]; Protocol Last Admin: 09/14/18 05:45 Dose: 40 mg Spironolactone (Aldactone) 25 mg PO BID [facility]; Protocol Last Admin: 09/12/18 17:40 Dose: 25 mg - Labs Labs: 09/14/18 06:15 09/14/18 06:15 - Constitutional Appears: Chronically Ill - Head Exam Head Exam: NORMAL INSPECTION - Respiratory Exam Respiratory Exam: Decreased Breath Sounds - Cardiovascular Exam Cardiovascular Exam: +S1, +S2 - GI/Abdominal Exam GI & Abdominal Exam: Soft. absent: Tenderness Assessment and Plan - Assessment and Plan (Free Text) Plan: Assessment bilteral alveolar infiltrates, R/O atypical pneumonia new onset leukocytosis R/O new onset sepsis history of probable right sided HCAP associated with lung mass lung cancer, non-small cell, stage 4 morbid obesity with BMI 40 dyslipidemia colon cancer Plan continue Bactrim IV day 6 and added Aztreonam day 3 and follow up repeat blood, urine cx, sputum cx from yesterday; PCT is only 0.26; Fungitell is positive which may suggest PJP since patient is on chronic steroids; follow up Galac tommanan, Histoplasma test, Aspergillus antigen test is negative, follow up Adenovirus work up, EBV and CMV tests; serum Crypt Ag is not detected Overall prognosis is poor will continue to monitor clinically discussed with Dr. Adames previously Dr. Jang is requesting to see if we can switch to PO antibiotics - if cultures continue to be negative, we can d/c Azactam
--- NOTE | 2018-09-15 16:09 | PN ---
DATE: 09/15/2018 This is [facility] visit on the transitional care floor. For Dr. Adames. SUBJECTIVE: The patient is a 68-year-old female, now admitted for reconditioning after being admitted for increasing shortness of breath, COPD exacerbation. She is now unresectable stage III non-small cell CA of the lung, history of colon cancer and history of GA. At present, she is resting in bed with her legs wrapped with JOESPH wraps and is participating with TCU protocols. OBJECTIVE/PHYSICAL EXAMINATION: VITAL SIGNS: Temperature 97.6, pulse 75, respirations 20, blood pressure 110/57, pulse ox 94%. HEENT: Unremarkable. NECK: Supple. HEART: Regular rate. LUNGS: Occasional rhonchi. ABDOMEN: Obese, soft, nontender. EXTREMITIES: With JOESPH wraps, faint +1 edema. NEUROLOGIC: Awake and alert. SKIN: Warm and dry. LABORATORY DATA: The patient's labs were done. White blood cell count is 17.7, hemoglobin 9.7, hematocrit 32.4, platelet count of 405,000 with the metabolic panel showing a sodium of 131, chloride of 92, BUN of 31, nonfasting glucose 205, alkaline phosphatase 134. Her urine showed 500 mg/dL of glucose yesterday. Chest x-ray is done today, it has not been read. ASSESSMENT: For this patient is that of deconditioning, unresectable stage III non-small cell carcinoma of the lung, chronic obstructive pulmonary disease, congestive heart failure, , obesity, peripheral edema, anemia of chronic disease, hyponatremia. PLAN: This patient is to continue present medical regimen with chest x-ray to be followed with prognosis of this patient guarded. This is a complex patient with a comprehensive medically necessary and appropriate visit carried out in excess of 40 minutes with the patient's questions answered to her satisfaction. Gerard Gibson MD
[2018-09-15] MEDS: Insulin Detemir 100 units/ml Vial (Levemir) SC SCH (21:47)
[2018-09-16] MEDS: Albuterol-Ipratrop 3 mg / 0.5 (3 ml) UD IH SCH ×7 (03:57→23:49)
--- NOTE | 2018-09-16 04:11 | PN ---
DATE: 09/15/2018 ENDOCRINOLOGY FOLLOWUP NOTE LOCATION: Room 321. This is 68-year-old female with recent acute pneumonitis with underlying malignancy, post radiation therapy and is now being followed closely for metabolic management because of recent hyperglycemic accelerations as noted thereof. Her glycemic levels are fluctuating, but improved and have ranged from 237 to 240 mg/dL. Her chemistry showed a BUN of 31, sodium 131, potassium 4.8, chloride 92, CO2 of 37, glucose 147, and creatinine 0.8. So at this time, we will continue the same basal and bolus insulin regimen to allow for dose equilibration and keep her on the Levemir given as 40 units subcu at bedtime daily as ordered. We will continue the Humalog given as 40 units subcu before meals as ordered. We will obtain serum chemistries and supplement accordingly as needed. We will follow. Crystal Mcgregor MD
[2018-09-16] MEDS: Levothyroxine 125 MCG TAB PO SCH (05:49)
[2018-09-16] MEDS: MethylPREDNISolone 40 mg Vial IVP SCH ×2 (05:49→17:42)
[2018-09-16] MEDS: Aztreonam 1 Gm in NS 100mL 100 ML IVPB SCH (05:49)
[2018-09-16] MEDS: Enoxaparin 40 mg Syringe SC SCH (05:49)
[2018-09-16] MEDS: Pantoprazole 40 mg EC Tab PO SCH (05:50)
[2018-09-16] MEDS: Insulin Lispro 1 UNITS/0.01 ML SC SCH ×3 (06:43→17:46)
[2018-09-16] MEDS: Insulin Lispro (humaLOG) LOW Coverage SC SCH ×4 (06:44→21:29)
[2018-09-16] MEDS: WATER IVPB SCH ×2 (07:37→17:46)
[2018-09-16] MEDS: SULFAMETHOXAZOLE IVPB SCH ×2 (07:37→17:46)
[2018-09-16] MEDS: DEXTROSE 5% IVPB SCH ×2 (07:37→17:46)
[2018-09-16] MEDS: TRIMETHOPRIM IVPB SCH ×2 (07:37→17:46)
[2018-09-16] MEDS: Arformoterol 15 mcg/2 ml Inh Sol IH SCH ×2 (10:01→19:21)
[2018-09-16] MEDS: Acetylcysteine 20% Inhal Soln (4ml) IH SCH ×2 (10:01→19:21)
[2018-09-16] MEDS: Budesonide 0.25 mg/2 ml Inhal Susp UD IH SCH ×2 (10:02→19:21)
[2018-09-16] MEDS: CRIZOTINIB 250 MG PO SCH ×2 (10:08→17:43)
[2018-09-16] MEDS: Mupirocin 2% Ointment 15 GM TUBE NS SCH (10:08)
[2018-09-16] MEDS: POLYETHYLENE GLYCOL 3350 17 GM/Dose PACKET PO SCH ×2 (10:09→17:42)
[2018-09-16] MEDS: Tmp-Smz 800 mg-160 mg DS Tab PO SCH ×3 (14:44→22:12)
--- NOTE | 2018-09-16 14:49 | PN ---
DATE: 09/16/2018 SUBJECTIVE: The patient is currently seen lying in bed. Family is in the room. The patient states last night she was dizzy and had difficulty sitting up. They did not yet check her orthostatic blood pressures today yet. The patient has not been seen by the physical therapist in the TCU and has not been out of bed yet. Her last sodium level was 131. She did receive several doses of tolvaptan during the hospitalization for treatment of SIADH and hyponatremia exacerbated by diuretic use. MEDICATIONS: Medication list reviewed. The patient is currently on acetylcysteine, aluminium hydroxide, magnesium hydroxide, simethicone, diphenhydramine and lidocaine. Spirolactone is on hold, aspirin, Azactam, Bactroban, Brovana, Cepacol throat lozenges, Colace, DuoNeb, Feosol, crizotinib, insulin, Lasix, Lipitor, Lovenox, MiraLax, Protonix, Pulmicort, Solu-Medrol, Synthroid, Bactrim. OBJECTIVE: VITAL SIGNS: Blood pressure last charted was 109/63. No orthostatics were done today. Temperature 97.4, respiratory rate is 20 with a pulse of 76. HEENT: Normocephalic, atraumatic. Conjunctivae remain pale. Sclerae nonicteric. NECK: Supple. No neck vein distention. CHEST: Clear to auscultation and percussion. No rales, rhonchi or wheezing but decreased breath sounds at the bases. CARDIOVASCULAR: Shows a regular S1, S2. No audible murmurs, rubs or gallops noted. ABDOMEN: Soft. Mildly obese. Bowel sounds normal. No rebound, guarding or masses. EXTREMITIES: With her legs elevated show no significant pitting edema. LABORATORY DATA AND IMAGING: Labs from 09/15/2018 from yesterday, white blood cell count 17.7, likely elevation from steroids. Hemoglobin 9.7 with a platelet count of 405,000. Chemistries show sodium of 131 which is up from 125. The patient appears to have a good response to tolvaptan. BUN 31 with a creatinine of 0.8, potassium 4.8 with a CO2 of 37. Glucose last check was 177. Calcium 8.5. Mild elevation of liver enzymes. Microbiology, all cultures were negative. ASSESSMENT: 1. Hyponatremia. This is in the setting of continued use of diuretic therapy compounded by syndrome of inappropriate antidiuretic hormone, likely secondary to her lung cancer. The patient has responded to tolvaptan every time the medication has been used. Her last sodium was 131. We will repeat a set of labs for tomorrow. As necessary, the patient may be dosed with tolvaptan. We will try and minimize her diuretic use now that her edema is significantly improved. The patient also thinks that the use of diuretics and increased urine output is leading to her dizziness when she stands up. We will also need to continue to follow orthostatic blood pressure checks. 2. Mild prerenal azotemia, secondary to diuretics and steroids. 3. History of multilobe pneumonia, possible atypical in nature. The patient is completing a course of antibiotic therapy under the guidance of Infectious Disease. 4. Stage IV [id number] cancer of the lung. Being followed by Dr. Adames and Dr. Gibson. 5. Past history of colon cancer, status post resection. 6. History of mild hyperlipidemia, controlled. 7. History of obesity. 8. History of anemia, secondary to underlying malignancy, stable. 9. History of atherosclerotic heart disease with paroxysmal atrial fibrillation. The patient presently appears to be in a regular rhythm. 10. History of chronic obstructive pulmonary disease, stable on inhalation therapy. PLAN: 1. We will try and monitor her blood work closely in the TCU over the next several days. 2. P.r.n. restart tolvaptan if sodium level drop significantly below 130. 3. Attempt to obtain orthostatic blood pressure checks. 4. Try and minimize diuretic therapy. Romeo Richards MD
--- NOTE | 2018-09-16 17:54 | CP.PCM.PN ---
Subjective - Date & Time of Evaluation Date of Evaluation: 09/16/18 Time of Evaluation: 10:45 - Subjective Subjective: Still feels weak but shortness of breath is better, and cough is a little better, not in distress, no fevers. No diarrhea. Objective - Vital Signs/Intake and Output Vital Signs (last 24 hours): Temp Pulse Resp BP Pulse Ox 97.6 F 87 22 137/71 92 L 09/16/18 16:00 09/16/18 16:00 09/16/18 16:00 09/16/18 16:00 09/16/18 16:00 - Medications Medications: Current Medications Acetylcysteine (Acetylcysteine 20%) 4 ml IH BIDRESP JOHN; Protocol Last Admin: 09/16/18 10:01 Dose: 4 ml Albuterol/Ipratropium (Duoneb 3 Mg/0.5 Mg (3 Ml) Ud) 3 ml IH [id number] JOHN; Protocol Last Admin: 09/16/18 16:40 Dose: 3 ml Alprazolam (Xanax) 0.25 mg PO Q8 PRN; Protocol PRN Reason: Anxiety Stop: 09/23/18 14:01 Arformoterol Tartrate (Brovana) 15 mcg IH [id number] JOHN; Protocol Last Admin: 09/16/18 10:01 Dose: 15 mcg Aspirin (Aspirin Chewable) 81 mg PO 0800 JOHN; Protocol Last Admin: 09/16/18 10:06 Dose: 81 mg Atorvastatin Calcium (Lipitor) 40 mg PO DAILY JOHN; Protocol Last Admin: 09/16/18 17:45 Dose: 40 mg Benzocaine/Menthol (Cepacol Sore Throat) 1 ari MT Q2H PRN PRN Reason: Sore Throat Budesonide (Pulmicort Respules) 0.25 mg IH [id number] JOHN; Protocol Last Admin: 09/16/18 10:02 Dose: 0.25 mg Al Hydrox/Mg Hydrox/Simethicone 30 ml/Diphenhydramine HCl 75 mg/Lidocaine 30 ml 0 ml PO Q2H PRN; Protocol PRN Reason: Mouth/Throat Pain Last Admin: 09/13/18 17:41 Dose: 30 bottle Dextrose (Dextrose 50% Inj) 0 ml IV STAT PRN; Protocol PRN Reason: Hypoglycemia Protocol Docusate Sodium (Colace) 100 mg PO TID JOHN Last Admin: 09/16/18 17:44 Dose: 100 mg Enoxaparin Sodium (Lovenox) 40 mg SC 0600 JOHN; Protocol Last Admin: 09/16/18 05:49 Dose: 40 mg Ferrous Sulfate (Feosol) 324 mg PO 0800,1800 JOHN; Protocol Last Admin: 09/16/18 17:43 Dose: 324 mg Furosemide (Lasix) 40 mg PO DAILY [facility] Last Admin: 09/16/18 10:09 Dose: 40 mg Home Med (Home Med) 1 unit PO BID [facility] Last Admin: 09/16/18 17:43 Dose: 1 unit Dextrose (Dextrose 5% In Water 1000 Ml) 1,000 mls @ 0 mls/hr IV .Q0M PRN; Protocol PRN Reason: Hypoglycemia Protocol Trimethoprim/Sulfamethoxazole (240 mg/ Dextrose) 500 mls @ 166.667 mls/hr IVPB 0600 [facility]; Protocol Insulin Detemir (Levemir) 40 unit SC HS [facility]; Protocol Last Admin: 09/15/18 21:47 Dose: 40 units Insulin Human Lispro (Humalog) 14 units SC AC [facility]; Protocol Last Admin: 09/16/18 17:46 Dose: 14 units Insulin Human Lispro (Humalog Low) 0 units SC ACHS [facility]; Protocol Last Admin: 09/16/18 17:47 Dose: 2 unit Levothyroxine Sodium (Synthroid) 125 mcg PO 0630 JOHN; Protocol Last Admin: 09/16/18 05:49 Dose: 125 mcg Methylprednisolone (Solu-Medrol) 40 mg IVP 0600,1800 JOHN; Protocol Last Admin: 09/16/18 17:42 Dose: 40 mg Metoprolol Tartrate (Lopressor) 25 mg PO 0800,1800 JOHN; Protocol Last Admin: 09/13/18 08:04 Dose: Not Given Mupirocin (Bactroban Ointment) 1 gm NS DAILY [facility]; Protocol Stop: 09/22/18 10:01 Last Admin: 09/16/18 10:08 Dose: 1 applic Pantoprazole Sodium (Protonix Ec Tab) 40 mg PO 0630 JOHN; Protocol Last Admin: 09/16/18 05:50 Dose: 40 mg Polyethylene Glycol (Miralax) 17 gm PO BID [facility] Last Admin: 09/16/18 17:42 Dose: 17 gm Spironolactone (Aldactone) 25 mg PO DAILY JOHN; Protocol Trimethoprim/Sulfamethoxazole (Bactrim Ds Tab) 2 tab PO BID JOHN; Protocol Last Admin: 09/16/18 17:45 Dose: 2 tab - Labs Labs: 09/15/18 06:20 09/15/18 06:20 - Constitutional Appears: Chronically Ill - Head Exam Head Exam: NORMAL INSPECTION - ENT Exam ENT Exam: Mucous Membranes Moist - Neck Exam Neck Exam: absent: Lymphadenopathy, Meningismus - Respiratory Exam Respiratory Exam: Decreased Breath Sounds, Rales (scattered) - Cardiovascular Exam Cardiovascular Exam: +S1, +S2 - GI/Abdominal Exam GI & Abdominal Exam: Soft. absent: Tenderness Assessment and Plan - Assessment and Plan (Free Text) Plan: Assessment bilteral alveolar infiltrates, consider atypical pneumonia; beta glucan positive, which may be suggestive of Pneumocystis new onset leukocytosis R/O new onset sepsis history of probable right sided HCAP associated with lung mass lung cancer, non-small cell, stage 4 morbid obesity with BMI 40 dyslipidemia colon cancer Plan continue Bactrim IV day 7 but on discussion with Dr. Jang, she is fluid- restricted - will keep the morning dose of Bactrim IV, then the 2pm dose and 10 pm doses Bactrim DS PO Overall prognosis is poor will continue to monitor clinically discussed with Dr. Adames previously repeat cultures are negative
--- NOTE | 2018-09-16 18:29 | PN ---
DATE: 09/16/2018 This is [facility]'s [facility] visit on TCU. For Dr. Adames. SUBJECTIVE: The patient is a 68-year-old female being reconditioned on TCU, admitted originally for exacerbation of COPD. She is known to suffer from unresectable stage III [id number] CA of the lung, history of colon cancer and history of AL with elevated blood sugars being monitored by Dr. Mcgregor, Endocrinology. She also has significant electrolyte abnormalities including hyponatremia, being followed by Dr. Richards, Renal. Today, the patient reports some shortness of breath, however, upon review of the patient's recent lab test, a TSH done on 09/07/2018, which was less than 0.02 with prior testing all with hyperparathyroid indices. We will check her TSH in the morning. I would hold her Synthroid for now. OBJECTIVE: VITAL SIGNS: Temperature 97.5, pulse 72, respirations 20, blood pressure 110/63, and pulse ox 95%. HEENT: Unremarkable. NECK: Supple. HEART: Regular rate. LUNGS: Scattered rhonchi. ABDOMEN: Obese, soft, and nontender. EXTREMITIES: +1 edema, unwrapped today. NEUROLOGIC: Awake and alert. Appears anxious. SKIN: Warm and dry. LABORATORY DATA: The patient's labs were not done this morning. As per TCU protocols, they were repeated in the morning as per Dr. Richards with a TSH added. The patient did have a chest x-ray done yesterday, which was read as re-demonstrated patchy infiltrate changes throughout the left lung in the right lung apex, right mid to lower lung, previously described as right hilar mass is less seen. ASSESSMENT: For this patient is that of deconditioning, uncontrolled diabetes mellitus, unresectable stage III [id number] carcinoma of the lung, chronic obstructive pulmonary disease, congestive heart failure, obesity, peripheral edema, anemia of chronic disease, hyponatremia, hypothyroidism, questionable overcorrected, and anxiety. PLAN: For this patient after conversation with Dr. Adames, she is to continue present medical regimen. We would be testing as above as per mergers and acquisitions consultant's recommendations. We will add Xanax 0.25 mg every 8 hours p.r.n. anxiety along with holding Synthroid for now with TSH values to be rechecked in the morning. This is a complex patient with a comprehensive medically necessary and appropriate visit carried out in excess of 25 minutes with the patient's status reviewed with nursing as above. Gerard Gibson MD
[2018-09-16] MEDS: Insulin Detemir 100 units/ml Vial (Levemir) SC SCH (21:29)
--- NOTE | 2018-09-16 21:47 | PN ---
DATE: 09/16/2018 PULMONARY PROGRESS NOTE REFERRING PHYSICIAN: Dr. Adames. SUBJECTIVE: She is out of bed to chair. Night was unremarkable. Has episode of hypotension. Still having tilt. Cough and shortness of breath is better. No nausea. No vomiting. No diarrhea. Has Sky wraps of the lower extremity and abdominal binders. PHYSICAL EXAMINATION: GENERAL: In no acute distress. VITAL SIGNS: Temperature is 98, heart rate is 87, respiratory rate is 22, blood pressure 137/71 this is lying down sitting, standing blood pressure is 82/53, sitting up blood pressure 102/65, and O2 sat is 92% on 4 L nasal cannula. HEENT: Moist mucous membranes. Crowded airway. NECK: Supple. No JVD. LUNGS: Has a much better airflow. HEART: S1 and S2. ABDOMEN: Soft and nontender. No organomegaly. EXTREMITIES: Has Sky wraps. NEUROLOGIC: Awake, alert, and follows simple command. MEDICATIONS: She is on Mucomyst inhaled twice a day, Aldactone 25 mg daily, aspirin 81 mg daily, Bactrim one tablet twice a day, Bactroban ointment to affected area, Brovana inhaled twice a day, Cepacol lozenges every 2 hours p.r.n., Colace 100 mg three times a day, DuoNeb every 4 hours p.r.n., ferrous sulfate 324 twice a day, insulin coverage, Lasix 40 mg daily, Levemir 40 units subcutaneously at bedtime, Lipitor 40 mg daily, metoprolol tartarate 25 mg twice a day, Lovenox 40 mg daily, MiraLax 17 g twice a day, Protonix 40 mg daily, Pulmicort inhaled twice a day, Solu-Medrol 40 mg twice a day, Synthroid 125 mcg daily, Bactrim 240 mg IV, and Xanax 0.25 mg every 8 hours p.r.n. LABORATORY DATA: Reviewed. Blood sugar this morning 245. Microbiology; sputum and blood culture, there is no growth. Chest x-ray done yesterday shows patchy infiltrate changes throughout the left lung as well in the right lung apex. Previously described right hilar mass is less well seen on chest x-ray. IMPRESSION AND PLAN: Lung cancer, chronic obstructive lung disease, gastroesophageal reflux disease, hypothyroid, obesity, anemia, sleep apnea syndrome, orthostatic hypotension, pulmonary hypertension, and cardiac diastolic dysfunction. Pulmonary point of view, slowly improving. Breathing is much better and oxygenation is better. She has orthostatic hypotension noted. Lasix changed to p.o. Pulmonary point of view, continue IV and inhaled bronchodilator and incentive spirometer. We will need to repeat the chest CT to evaluate the lung parenchyma. Gastric prophylaxis and deep venous thrombosis prophylaxis. Fall precaution. Orthostatic hypotension precaution. May use abdominal binder and Sky wraps to the lower extremity. Continue therapy. Thank you and we will follow with you. Hussein Feliz MD
--- NOTE | 2018-09-16 22:43 | PN ---
DATE: 09/16/2018 ENDO FOLLOWUP NOTE LOCATION: In room 321, [facility]. SUBJECTIVE: This is a 68-year-old female with recent uncontrolled type 2 insulin-requiring diabetes, now being followed closely for metabolic management. She is being treated for acute pneumonitis with IV antibiotic management as noted. Her glycemic levels today are fluctuating, but improved and the glucose levels have ranged from 177-230 and 245 mg/dL. LABORATORY DATA: Her latest chemistry showed a BUN of 31, sodium 131, potassium 4.8, chloride 92, CO2 of 37, glucose 147 and creatinine 0.8. ASSESSMENT: So at this time, we will continue the same basal and bolus insulin regimen to allow for dose equilibration and keep her on the Levemir given as 40 units subcu at bedtime daily as given. We will continue the Humalog given as 14 units t.i.d. before meals as ordered. We will titrate incrementally as indicated to optimize metabolic control. We will titrate and adjust her insulin dose regimen, and IV steroids are tapered down accordingly. We will obtain serial chemistries and supplement accordingly as needed. We will follow. Crystal Mcgregor MD
[2018-09-17] MEDS: Enoxaparin 40 mg Syringe SC SCH (05:25)
[2018-09-17] MEDS: MethylPREDNISolone 40 mg Vial IVP SCH ×2 (05:25→17:36)
[2018-09-17] MEDS: SULFAMETHOXAZOLE IVPB SCH (05:32)
[2018-09-17] MEDS: DEXTROSE 5% IVPB SCH (05:32)
[2018-09-17] MEDS: WATER IVPB SCH (05:32)
[2018-09-17] MEDS: TRIMETHOPRIM IVPB SCH (05:32)
[2018-09-17] MEDS: Pantoprazole 40 mg EC Tab PO SCH (05:32)
[2018-09-17] MEDS ORDERED: TRIMETHOPRIM IVPB SCH (06:00)
[2018-09-17] MEDS ORDERED: DEXTROSE 5% IVPB SCH (06:00)
[2018-09-17] MEDS ORDERED: SULFAMETHOXAZOLE IVPB SCH (06:00)
[2018-09-17] MEDS ORDERED: WATER IVPB SCH (06:00)
[2018-09-17] MEDS: Insulin Lispro 1 UNITS/0.01 ML SC SCH ×3 (06:41→16:55)
[2018-09-17] MEDS: Insulin Lispro (humaLOG) LOW Coverage SC SCH ×4 (06:41→21:30)
[2018-09-17] MEDS: Budesonide 0.25 mg/2 ml Inhal Susp UD IH SCH ×2 (07:27→21:12)
[2018-09-17] MEDS: Acetylcysteine 20% Inhal Soln (4ml) IH SCH ×2 (07:27→21:11)
[2018-09-17] MEDS: Albuterol-Ipratrop 3 mg / 0.5 (3 ml) UD IH SCH ×5 (07:27→21:12)
[2018-09-17] MEDS: Arformoterol 15 mcg/2 ml Inh Sol IH SCH ×2 (07:28→21:11)
[2018-09-17 08:09] LABS: HEMOGLOBIN 9.2 g/dL (12.0-16.0); MEAN CELL VOLUME 78.6 fl (80.0-105.0); MEAN CORPUSCULAR HEMOGLOBIN 23.7 pg (25.0-35.0); MEAN CORPUSCULAR HGB CONC 30.2 g/dl (31.0-37.0); MEAN PLATELET VOLUME 10.3 fl (7.0-11.0); RBC 3.88 10^6/uL (3.5-6.1); RED CELL DISTRIBUTION WIDTH 25.9 % (11.5-14.5); WHITE BLOOD COUNT 16.1 10^3/uL (4.5-11.0)
[2018-09-17 08:46] LABS: ALB/GLOB RATIO 0.9 (1.1-1.8); ALBUMIN 2.3 g/dL (3.0-4.8); ALT/SGPT 85 U/L (7-56); AST/SGOT 49 U/L (14-36); BLOOD UREA NITROGEN 36 mg/dL (7-21); CALCIUM 7.9 mg/dL (8.4-10.5); GFR NON-AFRICAN AMERICAN 55
[2018-09-17] MEDS: Mupirocin 2% Ointment 15 GM TUBE NS SCH (10:16)
[2018-09-17] MEDS: CRIZOTINIB 250 MG PO SCH ×2 (10:17→17:34)
[2018-09-17] MEDS: POLYETHYLENE GLYCOL 3350 17 GM/Dose PACKET PO SCH ×2 (10:20→17:36)
--- NOTE | 2018-09-17 11:43 | PN ---
DATE: 09/17/2018 SUBJECTIVE: The patient is currently seen comfortable, lying in bed, in the TCU. Her sodium level is 129 today with potassium level of 5.6. The patient has a diagnosis of SIADH and she has also had hyponatremia exacerbated by diuretic use. The patient had not been on a low potassium diet. MEDICATIONS: Medication list reviewed. The patient is currently on aluminium hydroxide, magnesium hydroxide, simethicone, diphenhydramine, lidocaine, acetylcysteine, aspirin, Bactrim, mupirocin, Brovana, Cepacol sore throat lozenges, Colace, DuoNeb, Feosol, crizotinib, insulin, Lasix, Lipitor, Lovenox, MiraLax, Protonix, Pulmicort, Solu-Medrol, Synthroid, Bactrim, Xanax p.r.n. OBJECTIVE: VITAL SIGNS: Blood pressure 137/71, yesterday the patient had a 20 mm fall in systolic blood pressure and 10 mm fall in diastolic blood pressure upon standing. Heart rate 87, temperature 97.6, respiratory rate of 22, oxygen saturation 92%. HEENT: Normocephalic, atraumatic. Conjunctivae are pale. Sclerae nonicteric. NECK: Supple. No neck vein distention. CHEST: Clear to auscultation and percussion. No rales, rhonchi, or wheezing. CARDIOVASCULAR: Shows a regular rate and rhythm. Normal S1, S2. No audible murmurs, rubs, or gallops noted. ABDOMEN: Soft. Mild obesity. Bowel sounds normal. No rebound, guarding, or masses. EXTREMITIES: Show her legs to be wrapped. No significant edema appreciated with her legs elevated in bed. LABORATORY DATA AND IMAGING: CBC: White blood cell count today 16.1, hemoglobin 9.2 with a platelet count of 385,000. Chemistry shows sodium which is 129, down from 131. Potassium level is 5.6. Chloride is 91 with a CO2 of 36. BUN slightly elevated at 36 with a creatinine of 1. Glucose is 111. Calcium is 7.9, corrects to normal for an albumin of 2.3. Phosphorus 4.5, magnesium level 2.4. Liver enzymes remain mildly elevated. TSH level was low. Urine studies were consistent with SIADH. Microbiology, all cultures were negative. ASSESSMENT: 1. Hyponatremia. This is in the setting of continued use of diuretic therapy. This is compounded by a diagnosis of syndrome of inappropriate antidiuretic hormone, likely secondary to her lung cancer. The patient has responded nicely to tolvaptan when used on an as-needed basis. For any sodium that drops in the mid 120 range or lower, tolvaptan may be restarted. Will also cautiously use diuretic therapy. 2. Mild hyperkalemia. The patient had not been on a low potassium diet. She does remain on steroid, so it is unlikely she has any adrenal insufficiency. The patient will receive one dose of Kayexalate today for her potassium level of 5.6 and she will be placed on a low-potassium diet with followup of labs tomorrow. 3. Prerenal azotemia, secondary to diuretics and steroids. 4. History of multilobe pneumonia. The patient had completed a course of Azactam. She is currently on Bactrim therapy. The patient is being followed by Infectious Disease. 5. Stage IV [id number] cancer of the lung. Followed by Dr. Adames and Dr. Gibson. 6. History of colon cancer, status post resection. 7. History of mild hyperlipidemia, controlled. 8. History of mild obesity. 9. History of anemia secondary to underlying malignancy, stable. Hemoglobin is in the 9-10 range. 10. History of arteriosclerotic heart disease with paroxysmal atrial fibrillation. The patient is currently in a normal sinus rhythm. 11. History of chronic obstructive pulmonary disease, on inhalation therapy. PLAN: 1. We will continue to monitor the patient's blood work in the TCU in light of her hyperkalemia and hyponatremia. 2. P.r.n. tolvaptan for any sodium level that drops significantly below 129. 3. Mild orthostatic hypotension noted on standing blood pressure. 4. Kayexalate and a 2 g K diet to be started today. 5. Discussed with the patient the need to avoid any outside food that might contain high potassium. Romeo Richards MD MTDD
[2018-09-17] MEDS: Tmp-Smz 800 mg-160 mg DS Tab PO SCH ×2 (14:59→21:29)
--- NOTE | 2018-09-17 17:24 | PN ---
DATE: 09/17/2018 This is [facility] visit on TCU. For Dr. Adames. SUBJECTIVE: The patient is a 68-year-old female, seen lying, awake in bed with her feet elevated with Sky wraps on with the patient reporting that she saw Dr. Feliz who is requesting a CT scan of her chest to be done for clarification of her recent chest x-ray to evaluate her lung parenchyma. Her legs remain weak; however, she is otherwise without complaint this visit. Her thyroid medication has been held due to a TSH of less than 0.[address] Mcgregor involving her care regarding her endocrinologic issues. OBJECTIVE: VITAL SIGNS: Temperature 97.6, pulse 87, respirations 20, blood pressure 137/71, and pulse oximetry 92%. HEENT: Unremarkable. Tongue is moist. NECK: Supple. CARDIOPULMONARY: Heart has regular rate. LUNGS: Rare rhonchi. ABDOMEN: Obese, soft, and nontender. EXTREMITIES: With Sky wraps, faint +1 edema. NEUROLOGIC: Awake and alert. LABORATORY DATA: The patient's labs were done to include a white blood cell count of 16.1, hemoglobin 9.2, hematocrit 30.5, and platelet count of 385,000. The metabolic panel showing a potassium of 5.6 which is being corrected with Kayexalate as per Dr. Richards, renal oracle database consultant. BUN of 36, creatinine of 1, AST of 49, ALT of 85,TSH again less than 0.02 with Synthroid being held. ASSESSMENT: The assessment for this patient is that of deconditioning, uncontrolled diabetes mellitus, hyperkalemia, unresectable stage III [id number] cancer of the lung, chronic obstructive pulmonary disease with exacerbation, congestive heart failure, peripheral edema, anemia of chronic disease, hyponatremia, hypothyroidism, now with hyperthyroid indices, anxiety, atypical pneumonia, obesity, and history of colon cancer. PLAN: The plan for this patient after consultation with Dr. Adames is to continue present medical regimen. We will check a CT scan of the chest as per Dr. Feliz with her electrolytes being treated as per Dr. Richards, Renal. Continue Bactrim as per Dr. Predomo, Infectious Disease oracle database consultant with prognosis for this patient guarded. We will monitor clinically with labs. This is a complex patient with a comprehensive medically necessary and appropriate visit carried out in excess of 20 minutes with the patient and her daughter's questions answered to their satisfaction. Gerard Gibson MD
--- NOTE | 2018-09-17 18:27 | PN ---
DATE: 09/17/2018 PULMONARY PROGRESS NOTE REFERRING PHYSICIAN: Dr. Adames. SUBJECTIVE: The patient is out of bed to reclining chair. Night was unremarkable. On and off dizzy spell, breathing is better, though less cough and sputum production. No chest pain. No abdominal pain. No nausea, vomiting or diarrhea. No leg pain or leg swelling. OBJECTIVE: VITAL SIGNS: Temperature is 98, heart rate is 87, respiratory rate is 22, blood pressure is 123/71, pulse of 92% on nasal cannula. HEENT: Moist mucous membrane. Crowded airway. Mallampati score of 4. NECK: Supple. No JVD. LUNGS: Has a much better airflow today. HEART: S1 and S2. ABDOMEN: Soft and nontender. No organomegaly. EXTREMITIES: No edema . NEUROLOGIC: Awake, alert and follows simple commands. MEDICATIONS: She is on Mucomyst inhaled twice a day, aspirin 81 mg daily, Bactrim Double Strength 2 tabs twice a day, Brovana inhaled twice a day, Cepacol lozenges every 2 hours p.r.n., Colace 100 mg 3 times a day, getting DuoNeb every 4 hours round the clock, ferrous sulfate 324 mg twice a day, getting insulin coverage, Lasix 20 mg daily, Levemir 40 units p.o. daily, metoprolol tartarate 25 mg twice a day, Lovenox 40 mg subcutaneously daily. She getting Magic mouthwash every 2 hours p.r.n., Protonix 40 mg daily, Pulmicort inhaled twice a day, Solu-Medrol 40 mg twice a day, Synthroid 125 mcg daily, Xanax 0.25 mg every 8 hours p.r.n. LABORATORY DATA: Reviewed and noted. No new changes in medication reported since yesterday. IMPRESSION AND PLAN: Lung cancer, chronic obstructive lung disease, gastroesophageal reflux disease, hypothyroidism, obesity, anemia, sleep apnea syndrome, orthostatic hypotension, pulmonary hypertension, cardiac diastolic dysfunction, ADL dysfunction. Pulmonary point of view, doing well. Lungs are pretty clear today. We will get CT of the chest without contrast to rule out any lymphangitic spread of the cancer, also heart failure. Pulmonary point of view, encourage continuous positive airway pressure use. Keep head at 45 degrees. IV and inhaled bronchodilator. Continue diuretics, gastric prophylaxis, deep venous thrombosis prophylaxis. Fall precaution. Orthostatic hypotension precaution. Thank you and we will follow with you. Hussein Feliz MD
[2018-09-17] MEDS: Insulin Detemir 100 units/ml Vial (Levemir) SC SCH (21:31)
--- NOTE | 2018-09-17 23:24 | PN ---
DATE: 09/17/2018 SUBJECTIVE: The patient is seen earlier today in 321. She is still complaining of shortness of breath. She states it has improved, however, she still has significant shortness of breath and there are no fevers and no chills. No abdominal pain. She is having lower extremity edema. PHYSICAL EXAMINATION: VITAL SIGNS: Temperature is 97, blood pressure is 120/70, respiratory rate of 22. HEENT: Unremarkable. NECK: Supple. LUNGS: Have decreased breath sounds. HEART: Normal S1, S2. ABDOMEN: Soft. LABORATORY EXAMINATION: Reveals a white count of 16,000, hemoglobin of 9, platelets of 385. Chemistries reveals a BUN of 36, creatinine of 1. Procalcitonin is 0.26. Microbiology is noted. Cultures are negative.. The beta 1-3d glucan test is positive at 478. 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 If the hypoxia is improved, maybe able to switch to p.o. Mepron to complete therapy. Her O2 saturation at this point is still low at 92%. Review of orders reveals the Bactrim to be active. Bayron Rooney MD
[2018-09-18] MEDS: Albuterol-Ipratrop 3 mg / 0.5 (3 ml) UD IH SCH ×6 (00:07→21:23)
[2018-09-18] MEDS: TRIMETHOPRIM IVPB SCH (05:29)
[2018-09-18] MEDS: DEXTROSE 5% IVPB SCH (05:29)
[2018-09-18] MEDS: WATER IVPB SCH (05:29)
[2018-09-18] MEDS: SULFAMETHOXAZOLE IVPB SCH (05:29)
[2018-09-18] MEDS: Enoxaparin 40 mg Syringe SC SCH (05:30)
[2018-09-18] MEDS: Pantoprazole 40 mg EC Tab PO SCH (05:30)
[2018-09-18] MEDS: MethylPREDNISolone 40 mg Vial IVP SCH (05:30)
[2018-09-18] MEDS: Insulin Lispro 1 UNITS/0.01 ML SC SCH ×3 (06:48→17:10)
[2018-09-18] MEDS: Insulin Lispro (humaLOG) LOW Coverage SC SCH ×4 (06:48→21:46)
[2018-09-18 07:19] LABS: BASO # 0.02 K/mm3 (0.0-2.0); BASO % 0.1 % (0.0-3.0); EOS % 0.1 % (1.5-5.0); HEMOGLOBIN 8.8 g/dL (12.0-16.0); LYMPH # 0.8 (1.2-3.4); LYMPH % 5.7 % (22.0-35.0); MEAN CELL VOLUME 78.4 fl (80.0-105.0); MEAN CORPUSCULAR HEMOGLOBIN 23.2 pg (25.0-35.0); MEAN CORPUSCULAR HGB CONC 29.5 g/dl (31.0-37.0); MONO # 0.8 (0.1-0.6); MONO % 5.5 % (1.0-6.0); RBC 3.8 10^6/uL (3.5-6.1); RED CELL DISTRIBUTION WIDTH 25.8 % (11.5-14.5); WHITE BLOOD COUNT 14.6 10^3/uL (4.5-11.0)
[2018-09-18 07:20] LABS: ALB/GLOB RATIO 0.9 (1.1-1.8); ALBUMIN 2.3 g/dL (3.0-4.8); ALT/SGPT 103 U/L (7-56); AST/SGOT 61 U/L (14-36); BLOOD UREA NITROGEN 37 mg/dL (7-21); CALCIUM 7.8 mg/dL (8.4-10.5); GFR NON-AFRICAN AMERICAN > 60
[2018-09-18] MEDS: Budesonide 0.25 mg/2 ml Inhal Susp UD IH SCH ×2 (07:39→21:23)
[2018-09-18] MEDS: Acetylcysteine 20% Inhal Soln (4ml) IH SCH ×2 (07:39→21:22)
[2018-09-18] MEDS: Arformoterol 15 mcg/2 ml Inh Sol IH SCH ×2 (07:39→21:22)
--- NOTE | 2018-09-18 08:21 | CP.PCM.PN ---
Subjective - Date & Time of Evaluation Date of Evaluation: 09/18/18 Time of Evaluation: 08:18 - Subjective Subjective: PGY-2 heme/onc progress note for Dr Adames No acute events noted overnight. Patient still c/o of "dizziness" which after further questioning is lightheadedness upon standing. Otherwise she is at her baseline. Objective - Vital Signs/Intake and Output Vital Signs (last 24 hours): Temp Pulse Resp BP Pulse Ox 97.6 F 85 22 123/71 92 L 09/16/18 16:00 09/17/18 23:23 09/16/18 16:00 09/17/18 11:46 09/16/18 16:00 Intake and Output: 09/18/18 09/18/18 06:59 18:59 Intake Total 600 Output Total 600 Balance 0 - Medications Medications: Current Medications Acetylcysteine (Acetylcysteine 20%) 4 ml IH BIDRESP JOHN; Protocol Last Admin: 09/18/18 07:39 Dose: 4 ml Albuterol/Ipratropium (Duoneb 3 Mg/0.5 Mg (3 Ml) Ud) 3 ml IH [id number] JOHN; Protocol Last Admin: 09/18/18 07:39 Dose: 3 ml Alprazolam (Xanax) 0.25 mg PO Q8 PRN; Protocol PRN Reason: Anxiety Stop: 09/23/18 14:01 Last Admin: 09/18/18 05:30 Dose: 0.25 mg Arformoterol Tartrate (Brovana) 15 mcg IH [id number] JOHN; Protocol Last Admin: 09/18/18 07:39 Dose: 15 mcg Aspirin (Aspirin Chewable) 81 mg PO 0800 JOHN; Protocol Last Admin: 09/18/18 07:57 Dose: 81 mg Atorvastatin Calcium (Lipitor) 40 mg PO DAILY JOHN; Protocol Last Admin: 09/17/18 10:20 Dose: 40 mg Benzocaine/Menthol (Cepacol Sore Throat) 1 ari MT Q2H PRN PRN Reason: Sore Throat Budesonide (Pulmicort Respules) 0.25 mg IH [id number] JOHN; Protocol Last Admin: 09/18/18 07:39 Dose: 0.25 mg Al Hydrox/Mg Hydrox/Simethicone 30 ml/Diphenhydramine HCl 75 mg/Lidocaine 30 ml 0 ml PO Q2H PRN; Protocol PRN Reason: Mouth/Throat Pain Last Admin: 09/13/18 17:41 Dose: 30 bottle Dextrose (Dextrose 50% Inj) 0 ml IV STAT PRN; Protocol PRN Reason: Hypoglycemia Protocol Docusate Sodium (Colace) 100 mg PO TID [facility] Last Admin: 09/17/18 17:34 Dose: 100 mg Enoxaparin Sodium (Lovenox) 40 mg SC 0600 JOHN; Protocol Last Admin: 09/18/18 05:30 Dose: 40 mg Ferrous Sulfate (Feosol) 324 mg PO 0800,1800 JOHN; Protocol Last Admin: 09/18/18 07:58 Dose: 324 mg Furosemide (Lasix) 40 mg PO DAILY JOHN Last Admin: 09/17/18 11:46 Dose: 40 mg Home Med (Home Med) 1 unit PO BID JOHN Last Admin: 09/17/18 17:34 Dose: 1 unit Dextrose (Dextrose 5% In Water 1000 Ml) 1,000 mls @ 0 mls/hr IV .Q0M PRN; Protocol PRN Reason: Hypoglycemia Protocol Trimethoprim/Sulfamethoxazole (240 mg/ Dextrose) 500 mls @ 166.667 mls/hr IVPB 0600 JOHN; Protocol Last Admin: 09/18/18 05:29 Dose: 166.667 mls/hr Insulin Detemir (Levemir) 40 unit SC HS [facility]; Protocol Last Admin: 09/17/18 21:31 Dose: Not Given Insulin Human Lispro (Humalog) 14 units SC AC [facility]; Protocol Last Admin: 09/18/18 06:48 Dose: Not Given Insulin Human Lispro (Humalog Low) 0 units SC ACHS [facility]; Protocol Last Admin: 09/18/18 06:48 Dose: Not Given Levothyroxine Sodium (Synthroid) 125 mcg PO 0630 JOHN; Protocol Last Admin: 09/16/18 05:49 Dose: 125 mcg Methylprednisolone (Solu-Medrol) 40 mg IVP 0600,1800 JOHN; Protocol Last Admin: 09/18/18 05:30 Dose: 40 mg Metoprolol Tartrate (Lopressor) 25 mg PO 0800,1800 JOHN; Protocol Last Admin: 09/13/18 08:04 Dose: Not Given Mupirocin (Bactroban Ointment) 1 gm NS DAILY [facility]; Protocol Stop: 09/22/18 10:01 Last Admin: 09/17/18 10:16 Dose: Not Given Pantoprazole Sodium (Protonix Ec Tab) 40 mg PO 0630 [facility]; Protocol Last Admin: 09/18/18 05:30 Dose: 40 mg Polyethylene Glycol (Miralax) 17 gm PO BID [facility] Last Admin: 09/17/18 17:36 Dose: 17 gm Trimethoprim/Sulfamethoxazole (Bactrim Ds Tab) 2 tab PO 1400,2200 [facility]; Protocol Last Admin: 09/17/18 21:29 Dose: 2 tab - Labs Labs: 09/18/18 06:45 09/18/18 06:45 - Additional Findings Additional findings: - Head Exam Head Exam: NORMAL INSPECTION - Additional Findings Additional findings: - Constitutional Appears: Well, Non-toxic, No Acute Distress - Head Exam Head Exam: ATRAUMATIC, NORMAL INSPECTION - Eye Exam Eye Exam: EOMI, Normal appearance, PERRL. absent: Scleral icterus - ENT Exam ENT Exam: Mucous Membranes Moist - Respiratory Exam Respiratory Exam: Wheezes, NORMAL BREATHING PATTERN - Cardiovascular Exam Cardiovascular Exam: Tachycardia, REGULAR RHYTHM, +S1, +S2. absent: JVD - GI/Abdominal Exam GI & Abdominal Exam: Normal Bowel Sounds, Soft. absent: Tenderness - Extremities Exam Extremities exam: Positive for: normal capillary refill, pedal edema, pedal pulses present - Neurological Exam Neurological exam: Alert, Oriented x3 - Psychiatric Exam Psychiatric exam: Normal Affect - Skin Skin Exam: Dry, Normal Color, Warm Assessment and Plan - Assessment and Plan (Free Text) Plan: Mrs White is a 68 year old female with a PMHx of unresectable stage III NSCLC wit h an ALK mutation, COPD, CHF, ASCVD, hx of colon cancer with resection stage 2, IA, AFib (now resolved), anemia of chronic disease, low vitamin D, obesity who present for shortness of breath and dry cough: #Right Upper Lobe Infiltrate 2/2 Radiation Induced or Superimposed HCAP #unresectable stage IIIb non-small cell carcinoma of the lung, currently on radiation #Decompensated CHF, Predominantly right-sided, acute on chronic combined systolic and diastolic #Hyponatremia #Iron Deficiency Anemia #sleep apnea syndrome #morbid obesity #Hx of NSTEMI -completed radiation with Dr Sarah Sinha on 09/12/18 to open up the passage of the right mainstem; still waiting for results from [employer] assay for next generation sequencing from Dr Hobbs's office; currently on crizotinib (xalkori) 250mg po bid -to treat her shortness of breath as well as LE edema we'll give her brovana 1 5mcg ih q12h, budesonide 0.25mg ih q12h, duoneb q4h prn, acetylcysteine 3ml ih bid, lasix 40mg ivp qd, solumedrol 40mg ivp q12h, aldactone 25mg po bid (now discontinued), potassium 20meq po bid, metolazone 5mg po qd for 3 days (started 09/11 now discontinued) * it appears everytime she has her lasix discontinued or reduced she has a re- accumulation of fluid * 09/13: patient experiencing increasing dizziness - Dr Perea held her diuretics including lasix, and spironolactone - plan is to hold for the next 2 days - currently she is only on metolazone 5mg po qd -continue home meds lipitor 40mg po qd, synthroid 125mcg po qd, metoprolol tartrate 25mg po bid, pregabalin 25mg po bid (on hold), aspirin 81mg po qd, crizotinib 250mg po bid (to treat her lung cancer) -empiric abx coverage wth cefepime 2g ivp q8h (started 09/05 and now discontinued), blood cx negative up to date, procalc negative, now on sulfamethoxazole/trimethoprim 240mg ivpb q8h (started 09/09) - we'll need to monitor her kidney function and now on aztreonam 1g ivpb q12h (started 09/13) * f/u adenovirus pcr, aspergillus testing, cmv pcr, cryptococcus ag, ebg ab, fungitell (1-3) b-d glucan, parainfluenza virus, rsv ag * b-d glucan came back positive -chest CT w/o contrast 09/08: There is a diffuse alveolar infiltrate in both u pper lobes and the right lower lobe. There is a patchy infiltrate in the left lower lobe. Findings are most consistent with pneumonia. There is a 2 x 3.4 cm mass in the right lower lobe adjacent to the inferior hilum. Mediastinal adenopathy * Dr Sarah Sinha believes lung parenchyma show a pattern that looks similar to ILD versus lymphangitic carcinomatosis and that Pathology would be the only way to discern and rule out causes. -tolvaptan 15mg po given on 09/14 to treat hyponatremia -insulin levemir 34u schs and lispro 14u sc ac -xanax 0.25mg po q8h prn for anxiety -ppx with lovenox 40mg sc qd and protonix 40mg po qd -cpap while sleeping -head of bed at 30 degrees -iron 17, tibc 222, %sat 8, ferritin level 154, b12 normal and folate normal, she is on feosol 324mg po bid -on colace 100mg po tid and miralax 17g po bid to treat constipation -pulmonary consult, Dr Feliz and cardio consult, Dr Perea, ID Dr Rooney, and Nephrology consult Dr Jang for fluid management, and neurology consult Dr Mack Smyth for dizziness Dispo: currently in TCU; PT recs home with services; will be discharged on 09/20/18 and after d/c will have left-sided port placed with Dr Gus Jimenez
[2018-09-18] MEDS: POLYETHYLENE GLYCOL 3350 17 GM/Dose PACKET PO SCH ×2 (09:11→17:12)
--- NOTE | 2018-09-18 09:11 | PN ---
DATE: 09/18/2018 SUBJECTIVE: The patient is seen lying in bed on Transitional Care Unit. She states she continues to feel somewhat weak. Peripheral edema is improved. Potassium was elevated at 5.6 yesterday. She was given Kayexalate. CURRENT MEDICATIONS: Include Mucomyst, aspirin, Bactrim, Brovana, DuoNeb inhaler, insulin, Lasix 40 mg daily, Lipitor, metoprolol 25 mg twice a day, Lovenox, Protonix, Pulmicort, Solu-Medrol, Synthroid, and crizotinib. OBJECTIVE: GENERAL: She is an overweight middle-aged woman. VITAL SIGNS: Blood pressure is 122/70 with a pulse of 80 and regular, respirations are 14. She is afebrile. HEENT: No JVD. CHEST: Bilateral scattered rhonchi. HEART: PMI displaced laterally with systolic murmur at the lower left sternal border. ABDOMEN: Soft, obese, nontender with normoactive bowel sounds. EXTREMITIES: 1+ leg edema. DIAGNOSTIC DATA: Sodium is 129, potassium 4.1, BUN and creatinine 37 and 0.9. White count 14.6, hemoglobin and hematocrit 8.8 and 29.8 with platelet count 369,000. AST and ALT 103 and 135 which has been increasing baseline of 33 and 77 on admission. IMPRESSION: 1. Decompensated congestive heart failure, predominantly right-sided continues to improve. 2. Advanced lung cancer. 3. Possible Pneumocystis pneumonia. 4. Chronic obstructive pulmonary disease. 5. Chronic anemia. 6. Elevated transaminases. 7. Hyponatremia likely diuretic induced. RECOMMENDATIONS: Lipitor will be held for now and repeat transaminases checked in the future. Oral Lasix will continue for now. Sky wraps to her lower extremities will continue as well. Increase activity as tolerated is advised. We will continue to follow and make further recommendations as appropriate. Vidal Fong MD
[2018-09-18] MEDS: Mupirocin 2% Ointment 15 GM TUBE NS SCH (09:53)
[2018-09-18] MEDS: CRIZOTINIB 250 MG PO SCH ×2 (09:54→17:12)
[2018-09-18] MEDS ORDERED: Levothyroxine 100 MCG TAB PO SCH (11:36)
--- NOTE | 2018-09-18 13:43 | CP.PCM.PN ---
Subjective - Date & Time of Evaluation Date of Evaluation: 09/18/18 Time of Evaluation: 10:15 - Subjective Subjective: Still feels weak but is less short of breath today, no fevers. Objective - Vital Signs/Intake and Output Vital Signs (last 24 hours): Temp Pulse Resp BP Pulse Ox 97.6 F 85 22 130/76 92 L 09/16/18 16:00 09/17/18 23:23 09/16/18 16:00 09/18/18 09:53 09/16/18 16:00 Intake and Output: 09/18/18 09/18/18 06:59 18:59 Intake Total 600 Output Total 600 Balance 0 - Medications Medications: Current Medications Acetylcysteine (Acetylcysteine 20%) 4 ml IH BIDRESP JOHN; Protocol Last Admin: 09/18/18 07:39 Dose: 4 ml Albuterol/Ipratropium (Duoneb 3 Mg/0.5 Mg (3 Ml) Ud) 3 ml IH [id number] JOHN; Protocol Last Admin: 09/18/18 11:05 Dose: 3 ml Alprazolam (Xanax) 0.25 mg PO Q8 PRN; Protocol PRN Reason: Anxiety Stop: 09/23/18 14:01 Last Admin: 09/18/18 05:30 Dose: 0.25 mg Arformoterol Tartrate (Brovana) 15 mcg IH [id number] JOHN; Protocol Last Admin: 09/18/18 07:39 Dose: 15 mcg Aspirin (Aspirin Chewable) 81 mg PO 0800 JOHN; Protocol Last Admin: 09/18/18 07:57 Dose: 81 mg Atorvastatin Calcium (Lipitor) 40 mg PO DAILY JOHN; Protocol Last Admin: 09/17/18 10:20 Dose: 40 mg Benzocaine/Menthol (Cepacol Sore Throat) 1 ari MT Q2H PRN PRN Reason: Sore Throat Budesonide (Pulmicort Respules) 0.25 mg IH [id number] JOHN; Protocol Last Admin: 09/18/18 07:39 Dose: 0.25 mg Al Hydrox/Mg Hydrox/Simethicone 30 ml/Diphenhydramine HCl 75 mg/Lidocaine 30 ml 0 ml PO Q2H PRN; Protocol PRN Reason: Mouth/Throat Pain Last Admin: 09/13/18 17:41 Dose: 30 bottle Dextrose (Dextrose 50% Inj) 0 ml IV STAT PRN; Protocol PRN Reason: Hypoglycemia Protocol Docusate Sodium (Colace) 100 mg PO TID JOHN Last Admin: 09/18/18 09:10 Dose: Not Given Enoxaparin Sodium (Lovenox) 40 mg SC 0600 JOHN; Protocol Last Admin: 09/18/18 05:30 Dose: 40 mg Ferrous Sulfate (Feosol) 324 mg PO 0800,1800 JOHN; Protocol Last Admin: 09/18/18 07:58 Dose: 324 mg Furosemide (Lasix) 40 mg PO DAILY JOHN Last Admin: 09/18/18 09:53 Dose: 40 mg Home Med (Home Med) 1 unit PO BID JOHN Last Admin: 09/18/18 09:54 Dose: 1 unit Dextrose (Dextrose 5% In Water 1000 Ml) 1,000 mls @ 0 mls/hr IV .Q0M PRN; Protocol PRN Reason: Hypoglycemia Protocol Trimethoprim/Sulfamethoxazole (240 mg/ Dextrose) 500 mls @ 166.667 mls/hr IVPB 0600 JOHN; Protocol Last Admin: 09/18/18 05:29 Dose: 166.667 mls/hr Insulin Detemir (Levemir) 40 unit SC HS JOHN; Protocol Last Admin: 09/17/18 21:31 Dose: Not Given Insulin Human Lispro (Humalog) 14 units SC AC JOHN; Protocol Last Admin: 09/18/18 12:12 Dose: 14 units Insulin Human Lispro (Humalog Low) 0 units SC ACHS JOHN; Protocol Last Admin: 09/18/18 12:12 Dose: 3 unit Levothyroxine Sodium (Synthroid) 100 mcg PO 0630 JOHN; Protocol Methylprednisolone (Solu-Medrol) 40 mg IVP 0600,1800 JOHN; Protocol Last Admin: 09/18/18 05:30 Dose: 40 mg Metoprolol Tartrate (Lopressor) 25 mg PO 0800,1800 OJHN; Protocol Last Admin: 09/13/18 08:04 Dose: Not Given Mupirocin (Bactroban Ointment) 1 gm NS DAILY JOHN; Protocol Stop: 09/22/18 10:01 Last Admin: 09/18/18 09:53 Dose: Not Given Pantoprazole Sodium (Protonix Ec Tab) 40 mg PO 0630 JOHN; Protocol Last Admin: 09/18/18 05:30 Dose: 40 mg Polyethylene Glycol (Miralax) 17 gm PO BID [facility] Last Admin: 09/18/18 09:11 Dose: Not Given Trimethoprim/Sulfamethoxazole (Bactrim Ds Tab) 2 tab PO 1400,2200 [facility]; Protocol Last Admin: 09/17/18 21:29 Dose: 2 tab - Labs Labs: 09/18/18 06:45 09/18/18 06:45 - Constitutional Appears: Chronically Ill - Head Exam Head Exam: NORMAL INSPECTION - ENT Exam ENT Exam: Mucous Membranes Moist - Neck Exam Neck Exam: absent: Lymphadenopathy, Meningismus - Respiratory Exam Respiratory Exam: Decreased Breath Sounds - Cardiovascular Exam Cardiovascular Exam: +S1, +S2 - GI/Abdominal Exam GI & Abdominal Exam: Soft. absent: Tenderness Assessment and Plan - Assessment and Plan (Free Text) Plan: Assessment bilteral alveolar infiltrates, consider atypical pneumonia; beta glucan positive, which may be suggestive of Pneumocystis new onset leukocytosis R/O new onset sepsis history of probable right sided HCAP associated with lung mass lung cancer, non-small cell, stage 4 morbid obesity with BMI 40 dyslipidemia colon cancer Plan continue Bactrim IV day 9 but on discussion with Dr. Jang, she is fluid- restricted - will keep the morning dose of Bactrim IV, then the 2pm dose and 10 pm doses Bactrim DS PO Overall prognosis is poor will continue to monitor clinically discussed with Dr. Adames previously repeat cultures are negative will consider switching to PO Mepron when patient is not hypoxic anymore
[2018-09-18] MEDS: Tmp-Smz 800 mg-160 mg DS Tab PO SCH ×2 (14:46→21:45)
--- NOTE | 2018-09-18 15:49 | PN ---
DATE: 09/18/2018 SUBJECTIVE: The patient is seen lying in bed. She is awake, she is alert. She is comfortable. She reports that her swelling is much better. She still has a cough. She has scant whitish phlegm. She also reports that she is very dizzy when she stands up. PHYSICAL EXAMINATION: GENERAL: Morbidly obese, elderly lady, sitting in bed. VITAL SIGNS: Blood pressure 130/76, heart rate 85, respiratory rate 22, temperature 97.6. HEENT: Normocephalic, atraumatic, positive pallor. NECK: Supple, no JVD. LUNGS: Bilateral equal entry, bilateral rhonchi, no rales. CARDIAC: S1 and S2, regular rate and rhythm, no murmur, no rub. ABDOMEN: Obese, distended, soft, nontender, bowel sounds present. EXTREMITIES: 1+ pitting edema of the lower extremities. INTAKE AND OUTPUT: 600/1400. WEIGHT: 234 pounds. LABORATORY DATA: WBC 14.6, hemoglobin 8.8, hematocrit 29.8, platelets 369. Sodium 129, potassium 4.1, chloride 91, CO2 of 36, BUN 37, creatinine 0.9, glucose 97, calcium 7.8, AST 61, ALT 103, albumin 4.9, globulin 2.3, TSH less than 0.02. Blood cultures, no growth. Urine culture, no growth. CURRENT MEDICATIONS: Mucomyst, aspirin, Bactrim, Bactroban, Brovana, Cepacol, Colace, Feosol 324 b.i.d., Humalog insulin, Lasix 40 p.o. daily, Lopressor 25 b.i.d., Lovenox, MiraLax, Protonix, Pulmicort, Solu-Medrol 40 IV every 12 hours, Synthroid 125. ASSESSMENT: 1. 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 2. Suppressed thyroid-stimulating hormone. 3. Edema. 4. Dizziness. 5. Stage IV lung cancer. 6. Morbid obesity. PLAN: 1. Change Synthroid to 100 mcg daily. 2. Tolvaptan 30 mg p.o. x1 dose. 3. Strict intake and output. Tamiko Jang MD
--- NOTE | 2018-09-18 16:17 | PN ---
DATE: 09/18/2018 PULMONARY PROGRESS NOTE REFERRING PHYSICIAN: Gerard Gibson MD SUBJECTIVE: The patient is sitting up in bed, family at bedside. Reports still getting dizzy when changing positions. Coughing has improved, but the patient still has productive cough, shortness of breath with exertion. No headache, rhinitis, chest pain, abdominal pain, nausea, vomiting, diarrhea, leg pain reported. OBJECTIVE: VITAL SIGNS: Blood pressure 130/76, pulse 85, temperature 97.6. GENERAL: No acute distress. HEENT: Moist mucous membranes. Mallampati score of 4. Crowded airways. NECK: Supple. No JVD. LUNGS: Rhonchi bilaterally. CARDIOVASCULAR: S1 and S2. ABDOMEN: Soft and nontender. No distention. No organomegaly. EXTREMITIES: Sky wrap to bilateral lower extremity. NEUROLOGIC: Awake, alert, and verbal. Follows commands. MEDICATIONS: Reviewed. Mucomyst 4 mL inhalation twice a day, Magic mouthwash every 2 hours p.r.n., DuoNeb 3 mL inhalation every 4 hours, Xanax 0.25 mg every 8 hours p.r.n., Brovana 15 mcg every 12 hours, aspirin 81 mg daily, Lipitor 40 mg daily, Cepacol throat lozenges every 12 hours p.r.n., Pulmicort 0.25 mg every 12 hours, dextrose p.r.n., Colace 100 mg 3 times a day, Lovenox 40 mg daily, ferrous sulfate 324 mg twice a day, Lasix 40 mg daily, Levemir 40 units at bedtime, Humalog sliding scale a.c. and at bedtime, Humalog 40 units a.c.,Synthroid 100 mcg daily, Solu-Medrol 40 mg twice a day, metoprolol tartrate 25 mg twice a day, Bactroban nasal daily, Protonix 40 mg daily, MiraLax 17 g twice a day, Bactrim DS 2 tabs twice a day, Bactrim 240 mg daily. LABORATORY DATA: Reviewed. WBC 14.6, RBC 3.8, hemoglobin 8.8, hematocrit 29.8, and platelets 369. Sodium 129, potassium 4.1, chloride 91, carbon dioxide 36, anion gap 6, BUN 37, creatinine 0.9, GFR is greater than 60, POC glucose 328, random glucose 97, calcium 7.8, total bilirubin 0.4, AST 61, ALT 103, alkaline phosphatase 135, total protein 4.9, albumin 2.3, globulin 2.6, and albumin-globulin ratio 0.9. Chest CT report pending. IMPRESSION AND PLAN: Lung cancer, chronic obstructive lung disease, gastroesophageal reflux disease, hypothyroidism, obesity, sleep apnea syndrome, anemia, pulmonary hypertension, cardiac diastolic dysfunction, activities of daily living dysfunction, orthostatic hypotension. Pulmonary point of view, continue continuous positive airway pressure use at bedtime, sleep apnea precaution, head of bed elevated at 45 degrees, continue inhaled bronchodilators, diuretics, gastric prophylaxis, deep venous thrombosis prophylaxis, orthostatic hypotension precaution, and fall precautions. Continue Sky wrap to bilateral lower extremities. Continue abdominal binder. We will decrease Solu-Medrol to 40 mg daily. We will order cortisol level to be drawn in the morning. Fall precaution. This patient was seen and examined with Dr. Feliz. Discussed assessment and plan as described above. Seen and examined with Debra Martinez, nurse practitioner. Discussed assessment and plan as described above. Thank you for this consult. We will follow with you. Juan Richardson APN Hussein Feliz MD DAVID
[2018-09-18 16:23] VITALS: RESP 20
[2018-09-18] MEDS ORDERED: Sodium Chloride 0.9% 500 ML IV STA (16:53)
--- NOTE | 2018-09-18 17:47 | CON ---
DATE: 09/18/2018 NEUROLOGY CONSULTATION CHIEF COMPLAINT AND HISTORY OF PRESENT ILLNESS: A 68-year-old woman with past medical history of stage 3 non-small cell lung cancer with ALK mutation, COPD, CHF, ASCVD, history of colon cancer with resection stage 2, [place], AFib anemia of chronic disease, low vitamin D, obesity, who presented with shortness of breath and dry cough, found to have a right upper lobe infiltrate secondary to radiation induced with superimposed underlying hospital-acquired pneumonia with underlying decompensated CHF predominantly right-sided and acute on chronic systolic and diastolic heart failure. In addition, has hyponatremia, iron deficiency anemia and sleep apnea syndrome, was consulted for dizziness, lightheadedness when she gets up from the seating to a standing position, has a low systolic and diastolic blood pressure, she is mildly orthostatic. She underwent physical therapy for deconditioned state in TCU. No focal weakness seen on the extremities. CAT scan of the head show no acute intracranial abnormality. No evidence of ____ metastasis to the brain. PAST MEDICAL HISTORY: As above. SOCIAL HISTORY: No illicit drug use, smoking or EtOH abuse. REVIEW OF SYSTEMS: A 14-point review of systems is negative except as per HPI. FAMILY HISTORY: Noncontributory. MEDICATIONS: Reviewed by nurse's reconciliation sheet. LABORATORY DATA: Sodium is 129, potassium 4.1, chloride 91, carbon dioxide 36, BUN is 37, creatinine 0.9, random glucose 228. PHYSICAL EXAMINATION: VITAL SIGNS: Temperature afebrile, pulse rate of 85, blood pressure of 130/76, respiratory rate of 18, FiO2 of 45% on nasal cannula. GENERAL: The patient is seen up in chair, in no acute distress. HEENT: Head is atraumatic, normocephalic. PERRLA. Extraocular muscles intact. NECK: Supple. No JVD. No adenopathy noted. LUNGS: Decreased breath sounds bilaterally. HEART: S1 and S2. Normal rate and rhythm. No murmurs, rubs, or gallops. ABDOMEN: Soft, nontender, and nondistended. Bowel sounds present. EXTREMITIES: No clubbing and no cyanosis. Peripheral pulses are 2+ bilaterally. NEUROLOGICAL: The patient is alert and oriented to person, place, month and year. Speech is fluent without any errors. Cranial nerves II through XII are intact. Motor exam; moves all extremities equally. Toes are downgoing bilaterally. Sensory exam; light touch, pinprick up to the calves bilaterally, and decreased vibration of the toes. DTRs are 2+ throughout one in both in knees and ankles. Coordination; [id number] is intact. No dysmetria noted. Gait is deferred for now. IMPRESSION: Dizziness is likely secondary to positional orthostatic hypotension, superimposed underlying chronic medical conditions. RECOMMENDATION: At this time, we recommend: 1. Compression stockings. 2. Monitor electrolytes and correct accordingly and avoid hyponatremic episodes. 3. Avoid any hyperglycemic or hypoglycemic events. 4. Continue PT and OT for rehabilitation and muscle strengthening. Mack Smyth MD
[2018-09-18] MEDS: Insulin Detemir 100 units/ml Vial (Levemir) SC SCH (21:47)
[2018-09-19] MEDS: Albuterol-Ipratrop 3 mg / 0.5 (3 ml) UD IH SCH ×5 (00:30→23:29)
--- NOTE | 2018-09-19 00:43 | PN ---
DATE: 09/18/2018 ENDOCRINOLOGY FOLLOWUP NOTE LOCATION: Room 321, [facility]. This is a 68-year-old female with recent admission for acute pneumonitis and is now being followed closely also for metabolic management. Her IV steroids are being tapered down with a recent exacerbation of COPD and currently on Solu-Medrol at 40 mg IV once daily as ordered. Her glycemic levels are fluctuating, and today's glucose levels have ranged from 72 to 101 and 228 mg/dL. Her chemistry showed a BUN of 37, sodium 129, potassium 4.1, chloride 91, CO2 of 36, glucose 97 and creatinine 0.9. So at this time, we will modify once again her basal and bolus insulin regimens and lower the Humalog to 10 units t.i.d. before meals to start today as ordered. We will also lower the basal insulin with Levemir down to 30 units subcu at bedtime daily to start tonight as ordered. We will continue the low-dose correction scale using Humalog insulin as ordered. We will obtain serial chemistries and supplement accordingly as needed. We will follow. Crystal Mcgregor MD
[2018-09-19] MEDS: WATER IVPB SCH (05:38)
[2018-09-19] MEDS: DEXTROSE 5% IVPB SCH (05:38)
[2018-09-19] MEDS: SULFAMETHOXAZOLE IVPB SCH (05:38)
[2018-09-19] MEDS: TRIMETHOPRIM IVPB SCH (05:38)
[2018-09-19] MEDS: Enoxaparin 40 mg Syringe SC SCH ×2 (05:39→10:55)
[2018-09-19] MEDS: Pantoprazole 40 mg EC Tab PO SCH (05:39)
[2018-09-19] MEDS: MethylPREDNISolone 40 mg Vial IVP SCH (05:49)
[2018-09-19] MEDS: Insulin Lispro 1 UNITS/0.01 ML SC SCH ×3 (06:32→17:39)
[2018-09-19] MEDS: Insulin Lispro (humaLOG) LOW Coverage SC SCH ×4 (06:32→21:39)
[2018-09-19 07:07] LABS: BASO # 0.02 K/mm3 (0.0-2.0); BASO % 0.2 % (0.0-3.0); EOS % 0.1 % (1.5-5.0); HEMOGLOBIN 8.5 g/dL (12.0-16.0); LYMPH # 0.9 (1.2-3.4); MEAN CORPUSCULAR HEMOGLOBIN 23.8 pg (25.0-35.0); MEAN CORPUSCULAR HGB CONC 30.1 g/dl (31.0-37.0); MEAN PLATELET VOLUME 10.1 fl (7.0-11.0); MONO # 0.6 (0.1-0.6); MONO % 4.7 % (1.0-6.0); RBC 3.57 10^6/uL (3.5-6.1); RED CELL DISTRIBUTION WIDTH 25.4 % (11.5-14.5); WHITE BLOOD COUNT 12.2 10^3/uL (4.5-11.0)
[2018-09-19] MEDS: Arformoterol 15 mcg/2 ml Inh Sol IH SCH ×2 (07:37→19:47)
[2018-09-19] MEDS: Acetylcysteine 20% Inhal Soln (4ml) IH SCH ×2 (07:37→19:46)
[2018-09-19] MEDS: Budesonide 0.25 mg/2 ml Inhal Susp UD IH SCH ×2 (07:37→19:45)
[2018-09-19 08:01] LABS: ALB/GLOB RATIO 0.9 (1.1-1.8); ALBUMIN 2.1 g/dL (3.0-4.8); ALT/SGPT 96 U/L (7-56); AST/SGOT 50 U/L (14-36); BLOOD UREA NITROGEN 31 mg/dL (7-21); CALCIUM 7.8 mg/dL (8.4-10.5); GFR NON-AFRICAN AMERICAN > 60
[2018-09-19] MEDS ORDERED: MethylPREDNISolone 40 mg Vial IVP SCH (10:00)
[2018-09-19] MEDS: Mupirocin 2% Ointment 15 GM TUBE NS SCH (10:13)
[2018-09-19] MEDS: CRIZOTINIB 250 MG PO SCH (10:15)
[2018-09-19] MEDS: POLYETHYLENE GLYCOL 3350 17 GM/Dose PACKET PO SCH (10:16)
[2018-09-19 11:04] LABS: ARTERIAL BLOOD GAS HCO3 32.8 mmol/L (21-28); ARTERIAL BLOOD GAS O2 SAT 96.9 % (95-98); ARTERIAL BLOOD GAS PCO2 43 mm/Hg (35-45); ARTERIAL BLOOD GAS PH 7.49 (7.35-7.45); ARTERIAL BLOOD GAS TCO2 34.1 mmol.L (22-28)
--- NOTE | 2018-09-19 13:20 | PN ---
DATE: 09/19/2018 PULMONARY PROGRESS NOTE REFERRING PHYSICIAN: Gerard Gibson MD SUBJECTIVE: The patient is sitting up in chair in room. No acute distress. Reports that she is still feeling dizzy and is shaky and weak when transferring with rolling walker. Still has some coughing and shortness of breath with exertion. No headache, rhinitis, chest pain, abdominal pain, nausea, vomiting, diarrhea or leg pain reported. OBJECTIVE: VITAL SIGNS: Blood pressure 94/57, pulse 84, oxygen saturation 94 and temperature 97.9. GENERAL: No acute distress. HEENT: Moist mucous membranes. Crowded airways. Mallampati score of 4. NECK: Supple. No JVD. LUNGS: Rhonchi bilaterally. CARDIOVASCULAR: S1 and S2. ABDOMEN: Soft and nontender. No distention. No organomegaly. EXTREMITIES: JOESPH wrap to bilateral lower extremity. NEUROLOGIC: Awake, alert, and verbal. Follows commands. MEDICATIONS: Reviewed. Mucomyst 4 mL inhalation twice a day, Magic mouthwash every 2 hours p.r.n., DuoNeb 3 mL inhalation every 4 hours, Xanax 0.25 mg every 8 hours p.r.n., Brovana 15 mcg every 12 hours, aspirin 81 mg daily, Lipitor 40 mg daily, Cepacol throat lozenges every 2 hours p.r.n., Pulmicort 0.25 mg inhalation every 12 hours, Lovenox 40 mg daily, ferrous sulfate 324 mg twice a day, Florinef 0.1 mg daily, Lasix 40 mg daily, Levemir 30 mg at bedtime, Humalog 10 units subcutaneous a.c., Humalog sliding scale a.c. and at bedtime, Synthroid 100 mcg daily, Solu-Medrol 40 mg daily, metoprolol tartrate 25 mg twice a day, Bactroban nasally daily, Protonix 40 mg daily and Bactrim DS 2 tabs twice a day. LABORATORY DATA: Reviewed. WBC 12.2, RBC 3.57, hemoglobin 8.5, hematocrit 28.2 and platelets 334. PCO2 of 43, PO2 of 82, HCO3 of 32, ABG pH 7.49 and FIO2 40. Sodium 130, potassium 4.0, chloride 93, carbon dioxide 34, anion gap 7, BUN 31, creatinine 0.9, GFR is greater than 60, POC glucose 81, random glucose 82, calcium 7.8, phosphorous 3.9, magnesium 2.1, total bilirubin 0.3, AST 50, ALT 96, alkaline phosphatase 128, total protein 4.3, albumin 2.1, globulin 2.2 and albumin-globulin ratio 0.9. Arterial blood potassium 4.0. Chest CT report pending. IMPRESSION AND PLAN: Lung cancer, chronic obstructive lung disease, gastroesophageal reflux disease, hypothyroidism, obesity, sleep apnea syndrome, anemia, pulmonary hypertension, cardiac diastolic dysfunction, activities of daily living dysfunction and orthostatic hypotension. Pulmonary point of view, continue inhaled bronchodilators, orthostatic hypotension precaution. Continue and JOESPH wrap to bilateral lower extremities. Continue continuous positive airway pressure use at bedtime, sleep apnea precaution, head of bed elevated at 45 degrees, continue diuretics, gastric prophylaxis, deep venous thrombosis prophylaxis, fall precautions. Awaiting CT report on chest. This patient was seen and examined with Dr. Feliz. Discussed assessment and plan as described above. Seen and examined with Debra Martinez, nurse practitioner. Discussed assessment and plan as described above. Thank you for this consult. We will follow with you. Juan Richardson APN Hussein Feliz MD
[2018-09-19] MEDS: Tmp-Smz 800 mg-160 mg DS Tab PO SCH ×2 (13:28→21:38)
--- NOTE | 2018-09-19 13:51 | CP.PCM.PN ---
Subjective - Date & Time of Evaluation Date of Evaluation: 09/19/18 Time of Evaluation: 10:30 - Subjective Subjective: Still having some weakness and orthostasis, no fevers, less short of breath, cough is improving. Objective - Vital Signs/Intake and Output Vital Signs (last 24 hours): Temp Pulse Resp BP Pulse Ox 97.6 F 85 22 130/76 92 L 09/16/18 16:00 09/17/18 23:23 09/16/18 16:00 09/18/18 09:53 09/16/18 16:00 Intake and Output: 09/18/18 09/18/18 06:59 18:59 Intake Total 600 Output Total 600 Balance 0 - Medications Medications: Current Medications Acetylcysteine (Acetylcysteine 20%) 4 ml IH BIDRESP JOHN; Protocol Last Admin: 09/18/18 07:39 Dose: 4 ml Albuterol/Ipratropium (Duoneb 3 Mg/0.5 Mg (3 Ml) Ud) 3 ml IH [id number] JOHN; Protocol Last Admin: 09/18/18 11:05 Dose: 3 ml Alprazolam (Xanax) 0.25 mg PO Q8 PRN; Protocol PRN Reason: Anxiety Stop: 09/23/18 14:01 Last Admin: 09/18/18 05:30 Dose: 0.25 mg Arformoterol Tartrate (Brovana) 15 mcg IH [id number] JOHN; Protocol Last Admin: 09/18/18 07:39 Dose: 15 mcg Aspirin (Aspirin Chewable) 81 mg PO 0800 JOHN; Protocol Last Admin: 09/18/18 07:57 Dose: 81 mg Atorvastatin Calcium (Lipitor) 40 mg PO DAILY [facility]; Protocol Last Admin: 09/17/18 10:20 Dose: 40 mg Benzocaine/Menthol (Cepacol Sore Throat) 1 ari MT Q2H PRN PRN Reason: Sore Throat Budesonide (Pulmicort Respules) 0.25 mg IH [id number] JOHN; Protocol Last Admin: 09/18/18 07:39 Dose: 0.25 mg Al Hydrox/Mg Hydrox/Simethicone 30 ml/Diphenhydramine HCl 75 mg/Lidocaine 30 ml 0 ml PO Q2H PRN; Protocol PRN Reason: Mouth/Throat Pain Last Admin: 09/13/18 17:41 Dose: 30 bottle Dextrose (Dextrose 50% Inj) 0 ml IV STAT PRN; Protocol PRN Reason: Hypoglycemia Protocol Docusate Sodium (Colace) 100 mg PO TID JOHN Last Admin: 09/18/18 09:10 Dose: Not Given Enoxaparin Sodium (Lovenox) 40 mg SC 0600 JOHN; Protocol Last Admin: 09/18/18 05:30 Dose: 40 mg Ferrous Sulfate (Feosol) 324 mg PO 0800,1800 JOHN; Protocol Last Admin: 09/18/18 07:58 Dose: 324 mg Furosemide (Lasix) 40 mg PO DAILY JOHN Last Admin: 09/18/18 09:53 Dose: 40 mg Home Med (Home Med) 1 unit PO BID JOHN Last Admin: 09/18/18 09:54 Dose: 1 unit Dextrose (Dextrose 5% In Water 1000 Ml) 1,000 mls @ 0 mls/hr IV .Q0M PRN; Protocol PRN Reason: Hypoglycemia Protocol Trimethoprim/Sulfamethoxazole (240 mg/ Dextrose) 500 mls @ 166.667 mls/hr IVPB 0600 JOHN; Protocol Last Admin: 09/18/18 05:29 Dose: 166.667 mls/hr Insulin Detemir (Levemir) 40 unit SC HS JOHN; Protocol Last Admin: 09/17/18 21:31 Dose: Not Given Insulin Human Lispro (Humalog) 14 units SC AC JOHN; Protocol Last Admin: 09/18/18 12:12 Dose: 14 units Insulin Human Lispro (Humalog Low) 0 units SC ACHS JOHN; Protocol Last Admin: 09/18/18 12:12 Dose: 3 unit Levothyroxine Sodium (Synthroid) 100 mcg PO 0630 JOHN; Protocol Methylprednisolone (Solu-Medrol) 40 mg IVP 0600,1800 JOHN; Protocol Last Admin: 09/18/18 05:30 Dose: 40 mg Metoprolol Tartrate (Lopressor) 25 mg PO 0800,1800 JOHN; Protocol Last Admin: 09/13/18 08:04 Dose: Not Given Mupirocin (Bactroban Ointment) 1 gm NS DAILY JOHN; Protocol Stop: 09/22/18 10:01 Last Admin: 09/18/18 09:53 Dose: Not Given Pantoprazole Sodium (Protonix Ec Tab) 40 mg PO 0630 JOHN; Protocol Last Admin: 09/18/18 05:30 Dose: 40 mg Polyethylene Glycol (Miralax) 17 gm PO BID JOHN Last Admin: 09/18/18 09:11 Dose: Not Given Trimethoprim/Sulfamethoxazole (Bactrim Ds Tab) 2 tab PO 1400,2200 [facility]; Protocol Last Admin: 09/17/18 21:29 Dose: 2 tab - Labs Labs: 09/18/18 06:45 09/18/18 06:45 - Constitutional Appears: No Acute Distress, Chronically Ill - Head Exam Head Exam: NORMAL INSPECTION - Respiratory Exam Respiratory Exam: Decreased Breath Sounds, Rales (scattered) - Cardiovascular Exam Cardiovascular Exam: +S1, +S2 - GI/Abdominal Exam GI & Abdominal Exam: Soft. absent: Tenderness Assessment and Plan - Assessment and Plan (Free Text) Plan: Assessment bilteral alveolar infiltrates, consider atypical pneumonia; beta glucan positive, which may be suggestive of Pneumocystis new onset leukocytosis R/O new onset sepsis history of probable right sided HCAP associated with lung mass lung cancer, non-small cell, stage 4 morbid obesity with BMI 40 dyslipidemia colon cancer Plan continue Bactrim IV day 10 for 14-21 days but on discussion with Dr. Jang, she is fluid-restricted - will keep the morning dose of Bactrim IV, then the 2pm dose and 10 pm doses Bactrim DS PO - will follow up ABG to see if her oxygenation is better and if it is, we can switch to Mepron Overall prognosis is poor will continue to monitor clinically discussed with Dr. Adames previously repeat cultures are negative
--- NOTE | 2018-09-19 14:39 | CP.PCM.PN ---
Subjective - Date & Time of Evaluation Date of Evaluation: 09/19/18 Time of Evaluation: 14:15 - Subjective Subjective: PGY-2 heme/onc progress note for Dr Adames Yesterday patient became extremely lightheaded when ambulating to bathroom and needed assistance getting back to chair. She had a fleet enema yesterday evening and this episode took place after the enema. This morning patient again extremely lightheaded when standing and unable to stand - bp noted to be 92/58. Otherwise no other complaints. Objective - Vital Signs/Intake and Output Vital Signs (last 24 hours): Temp Pulse Resp BP Pulse Ox 97.9 F 84 20 94/57 L 94 L 09/18/18 10:00 09/19/18 00:30 09/18/18 10:00 09/19/18 10:15 09/18/18 10:00 Intake and Output: 09/19/18 09/19/18 06:59 18:59 Intake Total 480 Output Total 400 Balance 80 - Medications Medications: Current Medications Acetylcysteine (Acetylcysteine 20%) 4 ml IH BIDRESP JOHN; Protocol Last Admin: 09/19/18 07:37 Dose: 4 ml Albuterol/Ipratropium (Duoneb 3 Mg/0.5 Mg (3 Ml) Ud) 3 ml IH [id number] JOHN; Protocol Last Admin: 09/19/18 07:37 Dose: 3 ml Alprazolam (Xanax) 0.25 mg PO Q8 PRN; Protocol PRN Reason: Anxiety Stop: 09/23/18 14:01 Last Admin: 09/18/18 14:49 Dose: 0.25 mg Arformoterol Tartrate (Brovana) 15 mcg IH [id number] JOHN; Protocol Last Admin: 09/19/18 07:37 Dose: 15 mcg Aspirin (Aspirin Chewable) 81 mg PO 0800 JOHN; Protocol Last Admin: 09/19/18 07:59 Dose: 81 mg Atorvastatin Calcium (Lipitor) 40 mg PO DAILY JOHN; Protocol Last Admin: 09/17/18 10:20 Dose: 40 mg Benzocaine/Menthol (Cepacol Sore Throat) 1 ari MT Q2H PRN PRN Reason: Sore Throat Budesonide (Pulmicort Respules) 0.25 mg IH [id number] JOHN; Protocol Last Admin: 09/19/18 07:37 Dose: 0.25 mg Al Hydrox/Mg Hydrox/Simethicone 30 ml/Diphenhydramine HCl 75 mg/Lidocaine 30 ml 0 ml PO Q2H PRN; Protocol PRN Reason: Mouth/Throat Pain Last Admin: 09/13/18 17:41 Dose: 30 bottle Dextrose (Dextrose 50% Inj) 0 ml IV STAT PRN; Protocol PRN Reason: Hypoglycemia Protocol Enoxaparin Sodium (Lovenox) 40 mg SC 0600 JOHN; Protocol Last Admin: 09/19/18 10:55 Dose: 40 mg Ferrous Sulfate (Feosol) 324 mg PO 0800,1800 JOHN; Protocol Last Admin: 09/19/18 08:00 Dose: 324 mg Fludrocortisone Acetate (Florinef) 0.1 mg PO DAILY JOHN Last Admin: 09/19/18 12:20 Dose: 0.1 mg Dextrose (Dextrose 5% In Water 1000 Ml) 1,000 mls @ 0 mls/hr IV .Q0M PRN; Protocol PRN Reason: Hypoglycemia Protocol Trimethoprim/Sulfamethoxazole (240 mg/ Dextrose) 500 mls @ 166.667 mls/hr IVPB 0600 JOHN; Protocol Last Admin: 09/19/18 05:38 Dose: 166.667 mls/hr Insulin Detemir (Levemir) 30 unit SC HS JOHN; Protocol Last Admin: 09/18/18 21:47 Dose: 30 units Insulin Human Lispro (Humalog) 10 units SC AC JOHN; Protocol Last Admin: 09/19/18 12:20 Dose: 10 units Insulin Human Lispro (Humalog Low) 0 units SC ACHS JOHN; Protocol Last Admin: 09/19/18 12:22 Dose: Not Given Levothyroxine Sodium (Synthroid) 100 mcg PO 0630 JOHN; Protocol Methylprednisolone (Solu-Medrol) 40 mg IVP 0600 JOHN; Protocol Last Admin: 09/19/18 05:49 Dose: 40 mg Metoprolol Tartrate (Lopressor) 25 mg PO 0800,1800 JOHN; Protocol Last Admin: 09/13/18 08:04 Dose: Not Given Mupirocin (Bactroban Ointment) 1 gm NS DAILY JOHN; Protocol Stop: 09/22/18 10:01 Last Admin: 09/19/18 10:13 Dose: Not Given Pantoprazole Sodium (Protonix Ec Tab) 40 mg PO 0630 JOHN; Protocol Last Admin: 09/19/18 05:39 Dose: 40 mg Trimethoprim/Sulfamethoxazole (Bactrim Ds Tab) 2 tab PO 1400,2200 JOHN; Protocol Last Admin: 09/19/18 13:28 Dose: 2 tab - Labs Labs: 09/19/18 06:15 09/19/18 06:15 - Additional Findings Additional findings: - Head Exam Head Exam: NORMAL INSPECTION - Additional Findings Additional findings: - Constitutional Appears: Well, Non-toxic, No Acute Distress - Head Exam Head Exam: ATRAUMATIC, NORMAL INSPECTION - Eye Exam Eye Exam: EOMI, Normal appearance, PERRL. absent: Scleral icterus - ENT Exam ENT Exam: Mucous Membranes Moist - Respiratory Exam Respiratory Exam: Wheezes, NORMAL BREATHING PATTERN - Cardiovascular Exam Cardiovascular Exam: Tachycardia, REGULAR RHYTHM, +S1, +S2. absent: JVD - GI/Abdominal Exam GI & Abdominal Exam: Normal Bowel Sounds, Soft. absent: Tenderness - Extremities Exam Extremities exam: Positive for: normal capillary refill, pedal edema, pedal pu lses present - Neurological Exam Neurological exam: Alert, Oriented x3 - Psychiatric Exam Psychiatric exam: Normal Affect - Skin Skin Exam: Dry, Normal Color, Warm Assessment and Plan - Assessment and Plan (Free Text) Plan: Mrs White is a 68 year old female with a PMHx of unresectable stage III NSCLC with an ALK mutation, COPD, CHF, ASCVD, hx of colon cancer with resection stage 2, KS, AFib (now resolved), anemia of chronic disease, low vitamin D, obesity who present for shortness of breath and dry cough: #Right Upper Lobe Infiltrate 2/2 Radiation Induced or Superimposed HCAP -empiric abx coverage wth cefepime 2g ivp q8h (started 09/05 and now discontinued), blood cx negative up to date, procalc negative, now on sulfamethoxazole/trimethoprim 240mg ivpb q8h (started 09/09) - we'll need to monitor her kidney function and now on aztreonam 1g ivpb q12h (started 09/13 and now discontinued), on bactrim 2 tabs po bid * f/u adenovirus pcr, aspergillus testing, cmv pcr, cryptococcus ag, ebg ab, fungitell (1-3) b-d glucan, parainfluenza virus, rsv ag * b-d glucan came back positive * ABG checked 09/19/18 for oxygenation status with consideration for antibiotic switch from bactrim to mepron -to treat her shortness of breath as well as LE edema we'll give her brovana 15mcg ih q12h, budesonide 0.25mg ih q12h, duoneb q4h prn, acetylcysteine 3ml ih bid, lasix 40mg ivp qd (now discontinued), solumedrol 40mg ivp q24h, aldactone 25mg po bid (now discontinued), potassium 20meq po bid, metolazone 5mg po qd for 3 days (started 09/11 now discontinued) * it appears everytime she has her lasix discontinued or reduced she has a re- accumulation of fluid * 09/13: patient experiencing increasing dizziness - Dr Perea held her diuretics including lasix, and spironolactone - plan is to hold for the next 2 days - currently she is only on metolazone 5mg po qd -on NC 5L O2 -insulin levemir 30u schs and lispro 10u sc ac #unresectable stage IIIb non-small cell carcinoma of the lung, s/p radiation -completed radiation with Dr Sarah Sinha on 09/12/18 to open up the passage of the right mainstem; still waiting for results from [employer] assay for next generation sequencing from Dr Hobbs's office; on crizotinib (xalkori) 250mg po bid (currently on hold to see if this med is contributing to her lightheadedness) -chest CT w/o contrast 09/08: There is a diffuse alveolar infiltrate in both upper lobes and the right lower lobe. There is a patchy infiltrate in the left lower lobe. Findings are most consistent with pneumonia. There is a 2 x 3.4 cm mass in the right lower lobe adjacent to the inferior hilum. Mediastinal adenopathy * Dr Sarah Sinha believes lung parenchyma show a pattern that looks similar to ILD versus lymphangitic carcinomatosis and that Pathology would be the only way to discern and rule out causes. #Decompensated CHF, Predominantly right-sided, acute on chronic combined systolic and diastolic -head of bed at 30 degrees, daily weights -to treat her shortness of breath as well as LE edema we'll give her brovana 15mcg ih q12h, budesonide 0.25mg ih q12h, duoneb q4h prn, acetylcysteine 3ml ih bid, lasix 40mg ivp qd (now discontinued), solumedrol 40mg ivp q24h, aldactone 25mg po bid (now discontinued), potassium 20meq po bid, metolazone 5mg po qd for 3 days (started 09/11 now discontinued) * it appears everytime she has her lasix discontinued or reduced she has a re- accumulation of fluid * 09/13: patient experiencing increasing dizziness - Dr Perea held her diuretics including lasix, and spironolactone - plan is to hold for the next 2 days - currently she is only on metolazone 5mg po qd -1.5L water restriction and 2g sodium restriction daily -compression stockings, abdominal binder #Hyponatremia -tolvaptan 15mg po given on 09/14 and 30mg po given on 09/18/18 to treat hyponatremia #Iron Deficiency Anemia -iron 17, tibc 222, %sat 8, ferritin level 154, b12 normal and folate normal, she is on feosol 324mg po bid #sleep apnea syndrome -cpap while sleeping #morbid obesity #Hx of NSTEMI -continue home meds lipitor 40mg po qd, synthroid 125mcg po qd (on hold), metoprolol tartrate 25mg po bid, pregabalin 25mg po bid (on hold), aspirin 81mg po qd, crizotinib 250mg po bid (to treat her lung cancer) #Lightheadedness -treating her lightheadedness by holding all diuretics and starting florinef 0.1mg po qd with frequent BP checks and high risk fall protocol #PPX -xanax 0.25mg po q8h prn for anxiety -ppx with lovenox 40mg sc qd and protonix 40mg po qd -pulmonary consult, Dr Feliz and cardio consult, Dr Perea, ID Dr Wiliam mansfield, and Nephrology consult Dr Jang for fluid management, and neurology consult Dr Mack Smyth for dizziness Dispo: currently in TCU; PT recs home with services; port to be placed 09/20/[address] Gus Jimenez
[2018-09-19 16:31] VITALS: PULSE 85
--- NOTE | 2018-09-19 20:35 | PN ---
DATE: 09/19/2018 SUBJECTIVE: The patient is currently seen in a wheelchair heading over for physical therapy. They were unable to obtain orthostatic blood pressures she was unable to stand today. Her blood pressure had been trending lower. She was empirically started on Florinef. I did discuss with the staff in the TCU about starting her on midodrine as well. MEDICATIONS: Medication list reviewed. The patient is on aluminum hydroxide, magnesium hydroxide, simethicone, diphenhydramine, lidocaine, acetylcysteine, aspirin, Bactrim, Bactroban ointment, Brovana, Cepacol, IV fluids have been discontinued, DuoNeb, Feosol, Florinef started today, Humalog, Levemir, Lovenox, Protonix, Pulmicort Respules, Solu-Medrol, Synthroid is on hold, Xanax. OBJECTIVE: VITAL SIGNS: Blood pressure from this morning 94/57, unable to obtain orthostatics. Heart rate was 84, temperature 97.9 with a respiratory rate of 20. HEENT: Exam shows her to be normocephalic and atraumatic. Conjunctivae are pale. Sclerae are nonicteric. NECK: Supple. No neck vein distention. CHEST: Clear to auscultation and percussion. No rales, rhonchi or wheezing. CARDIOVASCULAR: Shows a regular rate and rhythm. Normal S1 and S2. No audible murmurs, rubs or gallops. ABDOMEN: Soft. Mild obesity. Bowel sounds normal. No rebound or guarding. EXTREMITIES: Show puffiness of her arms. Her legs are wrapped in an Sky. She has no significant pitting edema with her legs down and sitting in a wheelchair. LABORATORY DATA AND IMAGING: CBC: White blood cell count today 12.2 with a hemoglobin of 8.5, slightly lower; platelet count is 334,000. Blood gas today showed a pH of 7.49, pCO2 of 43 with a pO2 of 82 and a bicarbonate level of 33. Lactate level was normal at 1.9. Chemistry showed a sodium of 130, this has been stable. Potassium 4, chloride 93, CO2 of 34, BUN 31 with a creatinine of 0.9. Glucose was 82, calcium 7.8 with an albumin of 2.1. Phosphorus and magnesium levels were normal. A.m. cortisol level with the patient being on Solu-Medrol was elevated at 44.9. Last TSH level was less than 0.02, and Levoxyl was held. Urine studies were consistent with SIADH, done earlier during the hospitalization in the TCU. Microbiology, all cultures were negative. ASSESSMENT: 1. Hyponatremia. This continues in the setting of continued use of diuretics. Diuretics are actually placed on hold. The patient is felt to have the syndrome of inappropriate antidiuretic hormone. This is likely secondary to her lung cancer. This was exacerbated by the use of diuretics which are now on hold. As discussed in previous notes, tolvaptan may be restarted at any point in time for any sodium levels that drop below 125. Presently, the patient is off diuretics. 2. Orthostatic hypotension. Unable to obtain orthostatic blood pressures today. The patient had been empirically started on Florinef. This will likely help her mild hyperkalemia and will also hopefully improve her orthostatic hypotension. I will start the patient on ProAmatine 5 mg three times a day to improve her blood pressure. 3. Prerenal azotemia. This is secondary to steroids and the use of diuretics. Again, diuretics have recently been discontinued. 4. History of multi-lobe pneumonia. The patient had completed a course of intravenous antibiotics. She is currently completing a course of Bactrim. The patient was followed by Infectious Disease. 5. Stage IV [id number] cancer of the lung, followed by Dr. Adames and Dr. Gibson. 6. History of colon cancer, status post resection. 7. History of mild hyperlipidemia, controlled. The patient remains on statin therapy which is actually currently on hold. 8. History of anemia secondary to underlying malignancy. Hemoglobin is slightly lower at 8.5. 9. History of arteriosclerotic heart disease with paroxysmal atrial fibrillation. The patient appears to be in a normal rhythm presently. 10. History of chronic obstructive pulmonary disease, currently stable on inhalation therapy. PLAN: 1. Discussed with staff in the TCU. We will attempt to medically treat her orthostatic hypotension. The patient had been started on Florinef earlier today. I will start her on ProAmatine to raise her blood pressure. 2. P.r.n. tolvaptan for any sodium level less than 125. 3. Orthostatic hypotension with inability for the patient to stand. The patient will continue Florinef and she will start on ProAmatine. 4. Continue 2 g potassium diet. 5. Try and decrease and taper steroid dose. 6. Hoping to see improvement in her blood pressure. There is some question and possibility that the patient might be transferred back to acute care if she is unable to function in an upright position. Romeo Richards MD
[2018-09-19] MEDS: Insulin Detemir 100 units/ml Vial (Levemir) SC SCH (21:39)
--- NOTE | 2018-09-20 00:13 | PN ---
DATE: 09/19/2018 ENDOCRINOLOGY FOLLOWUP NOTE LOCATION: Room 321 SUBJECTIVE: This is a 68-year-old female with recent uncontrolled type 2 insulin-requiring diabetes, now being followed closely for metabolic management. Her glycemic levels are fluctuating but improved and the glucose levels overnight have ranged from 81-184 mg/dL. LABORATORY DATA: Her chemistry showed a BUN of 31, sodium 130, potassium 4.0, chloride 93, CO2 of 34, glucose 82 and creatinine 0.9. Her cortisol level is 44.9 which is quite elevated and indicative for the need to titrate and adjust her IV steroid therapy as given. ASSESSMENT AND PLAN: So at this time, we will modify once again her basal and bolus insulin regimen and lower the Humalog to 10 units subcu t.i.d. before meals as ordered. We will also lower the basal insulin with Levemir to be given as 30 units subcu at bedtime daily to start tonight. We will obtain serial chemistries and supplement accordingly as needed. We will follow. Crystal Mcgregor MD
[2018-09-20] MEDS: Albuterol-Ipratrop 3 mg / 0.5 (3 ml) UD IH SCH ×5 (04:20→16:02)
[2018-09-20] MEDS: TRIMETHOPRIM IVPB SCH (05:34)
[2018-09-20] MEDS: SULFAMETHOXAZOLE IVPB SCH (05:34)
[2018-09-20] MEDS: WATER IVPB SCH (05:34)
[2018-09-20] MEDS: DEXTROSE 5% IVPB SCH (05:34)
[2018-09-20] MEDS: Enoxaparin 40 mg Syringe SC SCH (05:36)
[2018-09-20] MEDS: MethylPREDNISolone 40 mg Vial IVP SCH (05:37)
[2018-09-20] MEDS: Pantoprazole 40 mg EC Tab PO SCH (06:12)
[2018-09-20] MEDS: Insulin Lispro (humaLOG) LOW Coverage SC SCH ×2 (06:44→12:07)
[2018-09-20] MEDS: Insulin Lispro 1 UNITS/0.01 ML SC SCH ×2 (06:44→12:07)
[2018-09-20 06:50] LABS: BASO # 0.02 K/mm3 (0.0-2.0); BASO % 0.2 % (0.0-3.0); EOS % 0.1 % (1.5-5.0); LYMPH # 0.7 (1.2-3.4); LYMPH % 5.7 % (22.0-35.0); MEAN CELL VOLUME 79.7 fl (80.0-105.0); MEAN CORPUSCULAR HEMOGLOBIN 23.5 pg (25.0-35.0); MEAN CORPUSCULAR HGB CONC 29.5 g/dl (31.0-37.0); MEAN PLATELET VOLUME 10.1 fl (7.0-11.0); MONO # 0.7 (0.1-0.6); MONO % 6.2 % (1.0-6.0); RBC 3.4 10^6/uL (3.5-6.1); RED CELL DISTRIBUTION WIDTH 25.2 % (11.5-14.5); WHITE BLOOD COUNT 11.3 10^3/uL (4.5-11.0)
[2018-09-20 06:58] LABS: ALB/GLOB RATIO 0.9 (1.1-1.8); ALBUMIN 2.1 g/dL (3.0-4.8); ALT/SGPT 96 U/L (7-56); AST/SGOT 51 U/L (14-36); BLOOD UREA NITROGEN 30 mg/dL (7-21); CALCIUM 7.6 mg/dL (8.4-10.5); GFR NON-AFRICAN AMERICAN > 60
[2018-09-20] MEDS: Acetylcysteine 20% Inhal Soln (4ml) IH SCH (08:25)
[2018-09-20] MEDS: Budesonide 0.25 mg/2 ml Inhal Susp UD IH SCH (08:26)
[2018-09-20] MEDS: Arformoterol 15 mcg/2 ml Inh Sol IH SCH (08:26)
--- NOTE | 2018-09-20 10:30 | CP.PCM.DIS ---
Provider - Provider Date of Admission: 09/12/18 15:27 Attending physician: Gerard Gibson MD Primary care physician: PMD: Dr Adames Consults: 09/12/18 16:55 Physician Consult Routine Comment: Consulting Provider: Vidal Fong Consulting Physician: Vidal Fong Reason for Consult: SOB Additional Comments: Physician Consult Routine Comment: Consulting Provider: Hussein Feliz Consulting Physician: Hussein Feliz Reason for Consult: pneumonia Additional Comments: 09/12/18 16:56 Physician Consult Routine Comment: Consulting Provider: Tamiko Jang Consulting Physician: Tamiko Jang Reason for Consult: fluid management 09/12/18 16:57 Physician Consult Routine Comment: Consulting Provider: Crystal Mcgregor Consulting Physician: Crystal Mcgregor Reason for Consult: hyperglycemia 09/12/18 16:58 Physician Consult Routine Comment: Consulting Provider: Bayron Rooney Consulting Physician: Bayron Rooney Reason for Consult: pneumonia 09/12/18 16:59 Physician Consult Routine Comment: Consulting Provider: Sarah Sinha Consulting Physician: Sarah Sinha Reason for Consult: radiation 09/12/18 19:46 Inpatient [employer] Core Measures Referral Routine Comment: Physician Instructions: Reason For Exam: EVALUATION Social Work Referral Routine Comment: DISCHARGE PLANNING AT HOME Physician Instructions: Reason For Exam: EVALUATION Transition In Care/Readmission Reduction Routine Comment: Physician Instructions: Reason For Exam: EVALUATION 09/18/18 12:17 Neurology Consult Routine Comment: Consulting Provider: Mack Smyth Consulting Physician: Mack Smyth Reason for Consult: lightheadedness upon standing Time Spent in preparation of Discharge (in minutes): 44 Diagnosis - Discharge Diagnosis (1) Lightheadedness Status: Acute Priority: High (2) Non-small cell lung cancer (NSCLC) Status: Chronic Priority: High (3) Pneumonia Status: Suspected Priority: High Hospital Course - Lab Results Lab Results: Micro Results 09/13/18 16:49 Blood-Venous Blood Culture - Final NO GROWTH AFTER 5 DAYS 09/13/18 16:49 Blood-Venous Gram Stain - Final TEST NOT PERFORMED 09/13/18 16:49 Blood-Venous Blood Culture - Final NO GROWTH AFTER 5 DAYS 09/13/18 16:49 Blood-Venous Gram Stain - Final TEST NOT PERFORMED 09/16/18 06:00 Urine,Clean Catch Urine Culture - Final <10,000 CFU/ML. MULTIPLE SPECIES. PROBABLE CONTAMINATION. 09/14/18 08:30 Sputum Gram Stain - Final 09/14/18 08:30 Sputum Sputum Culture - Final NORMAL ORAL ELEANOR Most Recent Lab Values WBC 11.3 10^3/uL (4.5-11.0) H 09/20/18 06:30 RBC 3.40 10^6/uL (3.5-6.1) L 09/20/18 06:30 Hgb 8.0 g/dL (12.0-16.0) L 09/20/18 06:30 Hct 27.1 % (36.0-48.0) L 09/20/18 06:30 MCV 79.7 fl (80.0-105.0) L 09/20/18 06:30 MCH 23.5 pg (25.0-35.0) L 09/20/18 06:30 MCHC 29.5 g/dl (31.0-37.0) L 09/20/18 06:30 RDW 25.2 % (11.5-14.5) H 09/20/18 06:30 Plt Count 314 10^3/uL (120.0-450.0) 09/20/18 06:30 MPV 10.1 fl (7.0-11.0) 09/20/18 06:30 Neut % (Auto) 87.8 % (50.0-68.0) H 09/20/18 06:30 Lymph % (Auto) 5.7 % (22.0-35.0) L 09/20/18 06:30 [place] % (Auto) 6.2 % (1.0-6.0) H 09/20/18 06:30 Eos % (Auto) 0.1 % (1.5-5.0) L 09/20/18 06:30 Baso % (Auto) 0.2 % (0.0-3.0) 09/20/18 06:30 Lymph # (Auto) 0.7 (1.2-3.4) L 09/20/18 06:30 [place] # (Auto) 0.7 (0.1-0.6) H 09/20/18 06:30 Eos # (Auto) 0.0 (0.0-0.7) 09/20/18 06:30 Baso # (Auto) 0.02 K/mm3 (0.0-2.0) 09/20/18 06:30 Absolute Neuts (auto) 9.94 (1.4-6.5) H 09/20/18 06:30 Neutrophils % (Manual) 91 % (50.0-70.0) H 09/15/18 06:20 Band Neutrophils % 4 % (0-2) H 09/15/18 06:20 Lymphocytes % (Manual) 1 % (22.0-35.0) L 09/15/18 06:20 Monocytes % (Manual) 4 % (1.0-6.0) 09/15/18 06:20 Platelet Evaluation High (NORMAL) 09/15/18 06:20 Large Platelets Present 09/15/18 06:20 pCO2 43 mm/Hg (35-45) 09/19/18 10:55 pO2 82.0 mm/Hg (80-100) 09/19/18 10:55 HCO3 32.8 mmol/L (21-28) H 09/19/18 10:55 ABG pH 7.49 (7.35-7.45) H 09/19/18 10:55 ABG Total CO2 34.1 mmol.L (22-28) H 09/19/18 10:55 ABG O2 Saturation 96.9 % (95-98) 09/19/18 10:55 ABG Base Excess 8.5 mmol/L (-2.0-3.0) H 09/19/18 10:55 ABG Potassium 4.0 mmol/L (3.6-5.2) 09/19/18 10:55 Sodium 128.0 mmol/L (132-148) L 09/19/18 10:55 Chloride 96.0 mmol/L (98-107) L 09/19/18 10:55 Glucose 148 mg/dl (65-105) H 09/19/18 10:55 Lactate 1.9 mmol/L (0.7-2.1) 09/19/18 10:55 FiO2 40.0 % 09/19/18 10:55 Sodium 129 mmol/L (132-148) L 09/20/18 06:30 Potassium 3.7 mmol/L (3.6-5.0) 09/20/18 06:30 Chloride 92 mmol/L (98-107) L 09/20/18 06:30 Carbon Dioxide 34 mmol/L (21-33) H 09/20/18 06:30 Anion Gap 8 (10-20) L 09/20/18 06:30 BUN 30 mg/dL (7-21) H 09/20/18 06:30 Creatinine 0.8 mg/dl (0.7-1.2) 09/20/18 06:30 Est GFR ( Amer) > 60 09/20/18 06:30 Est GFR (Non-Af Amer) > 60 09/20/18 06:30 POC Glucose (mg/dL) 80 mg/dL (65-110) 09/20/18 05:07 Random Glucose 117 mg/dL (70-110) H 09/20/18 06:30 Uric Acid 4.2 mg/dL (2.5-6.2) 09/13/18 06:30 Calcium 7.6 mg/dL (8.4-10.5) L 09/20/18 06:30 Phosphorus 3.9 mg/dL (2.5-4.5) 09/19/18 06:15 Magnesium 2.1 mg/dL (1.7-2.2) 09/19/18 06:15 Total Bilirubin 0.4 mg/dL (0.2-1.3) 09/20/18 06:30 AST 51 U/L (14-36) H 09/20/18 06:30 ALT 96 U/L (7-56) H 09/20/18 06:30 Alkaline Phosphatase 125 U/L (38-126) 09/20/18 06:30 NT-Pro-B Natriuret Pep 108 pg/mL (0-450) 09/13/18 15:00 Total Protein 4.5 g/dL (5.8-8.3) L 09/20/18 06:30 Albumin 2.1 g/dL (3.0-4.8) L 09/20/18 06:30 Globulin 2.4 gm/dL 09/20/18 06:30 Albumin/Globulin Ratio 0.9 (1.1-1.8) L 09/20/18 06:30 Procalcitonin 0.26 NG/ML (0.19-0.49) 09/13/18 16:47 TSH 3rd Generation < 0.02 mIU/mL (0.46-4.68) L 09/17/18 07:00 Cortisol AM Sample 44.9 ug/dL (4.46-22.7) H 09/19/18 06:15 Arterial Blood Potassium 4.0 mmol/L (3.6-5.2) 09/19/18 10:55 Urine Color Yellow (YELLOW) 09/14/18 05:42 Urine Appearance Clear (CLEAR) 09/14/18 05:42 Urine pH 6.5 (4.7-8.0) 09/14/18 05:42 Ur Specific [place] 1.010 (1.005-1.035) 09/14/18 05:42 Urine Protein Negative mg/dL (<30 mg/dL) 09/14/18 05:42 Urine Glucose (UA) 500 mg/dL (NEGATIVE) H 09/14/18 05:42 Urine Ketones Negative mg/dL (NEGATIVE) 09/14/18 05:42 Urine Blood Negative (NEGATIVE) 09/14/18 05:42 Urine Nitrate Negative (NEGATIVE) 09/14/18 05:42 Urine Bilirubin Negative (NEGATIVE) 09/14/18 05:42 Urine Urobilinogen 0.2 E.U./dL (<1 E.U./dL) 09/14/18 05:42 Ur Leukocyte Esterase Negative Kerrie/uL (NEGATIVE) 09/14/18 05:42 Urine Osmolality 575 mosm/kg (300-1000) 09/13/18 17:32 Ur Random Sodium 28 meq/L 09/14/18 05:42 - Hospital Course Hospital Course: Mrs White was transferred to TCU about 1 week ago with improvement in her breathing, HOWEVER she is currently becoming very lightheaded upon standing and is not safe to be discharged home. She will need to return to the acute care side so may find a solution to her lightheadedness. Additionally, she is scheduled for port placement with Dr Gus Jimenez today at 3pm. Please see below for latest progress note with more specifics on assessments and plan: Mrs White is a 68 year old female with a PMHx of unresectable stage III NSCLC with an ALK mutation, COPD, CHF, ASCVD, hx of colon cancer with resection stage 2, LA, AFib (now resolved), anemia of chronic disease, low vitamin D, obesity who present for shortness of breath and dry cough: #Right Upper Lobe Infiltrate 2/2 Radiation Induced or Superimposed HCAP -empiric abx coverage wth cefepime 2g ivp q8h (started 09/05 and now discontinued), blood cx negative up to date, procalc negative, now on sulfamethoxazole/trimethoprim 240mg ivpb q8h (started 09/09) - we'll need to monitor her kidney function and now on aztreonam 1g ivpb q12h (started 09/13 and now discontinued), on bactrim 2 tabs po bid * f/u adenovirus pcr, aspergillus testing, cmv pcr, cryptococcus ag, ebg ab, fungitell (1-3) b-d glucan, parainfluenza virus, rsv ag * b-d glucan came back positive * ABG checked 09/19/18 for oxygenation status with consideration for antibiotic switch from bactrim to mepron -to treat her shortness of breath as well as LE edema we'll give her brovana 15mcg ih q12h, budesonide 0.25mg ih q12h, duoneb q4h prn, acetylcysteine 3ml ih bid, lasix 40mg ivp qd (now discontinued), solumedrol 40mg ivp q24h, aldactone 25mg po bid (now discontinued), potassium 20meq po bid, metolazone 5mg po qd for 3 days (started 09/11 now discontinued) * it appears everytime she has her lasix discontinued or reduced she has a re- accumulation of fluid * 09/13: patient experiencing increasing dizziness - Dr Perea held her diuretics including lasix, and spironolactone - plan is to hold for the next 2 days - currently she is only on metolazone 5mg po qd -on NC 5L O2 -insulin levemir 30u schs and lispro 10u sc ac #unresectable stage IIIb non-small cell carcinoma of the lung, s/p radiation -completed radiation with Dr Sarah Sinha on 09/12/18 to open up the passage of the right mainstem; still waiting for results from [employer] assay for next gener ation sequencing from Dr Hobbs's office; on crizotinib (xalkori) 250mg po bid (currently on hold to see if this med is contributing to her lightheadedness) -chest CT w/o contrast 09/08: There is a diffuse alveolar infiltrate in both upper lobes and the right lower lobe. There is a patchy infiltrate in the left lower lobe. Findings are most consistent with pneumonia. There is a 2 x 3.4 cm mass in the right lower lobe adjacent to the inferior hilum. Mediastinal adenopathy * Dr Sarah Sinha believes lung parenchyma show a pattern that looks similar to ILD versus lymphangitic carcinomatosis and that Pathology would be the only way to discern and rule out causes. #Decompensated CHF, Predominantly right-sided, acute on chronic combined systolic and diastolic -head of bed at 30 degrees, daily weights -to treat her shortness of breath as well as LE edema we'll give her brovana 15mcg ih q12h, budesonide 0.25mg ih q12h, duoneb q4h prn, acetylcysteine 3ml ih bid, lasix 40mg ivp qd (now discontinued), solumedrol 40mg ivp q24h, aldactone 25mg po bid (now discontinued), potassium 20meq po bid, metolazone 5mg po qd for 3 days (started 09/11 now discontinued) * it appears everytime she has her lasix discontinued or reduced she has a re- accumulation of fluid * 09/13: patient experiencing increasing dizziness - Dr Perea held her diuretics including lasix, and spironolactone - plan is to hold for the next 2 days - currently she is only on metolazone 5mg po qd -1.5L water restriction and 2g sodium restriction daily -compression stockings, abdominal binder #Hyponatremia -tolvaptan 15mg po given on 09/14 and 30mg po given on 09/18/18 to treat hyponatremia #Iron Deficiency Anemia -iron 17, tibc 222, %sat 8, ferritin level 154, b12 normal and folate normal, she is on feosol 324mg po bid #sleep apnea syndrome -cpap while sleeping #morbid obesity #Hx of NSTEMI -continue home meds lipitor 40mg po qd, synthroid 125mcg po qd (on hold), metoprolol tartrate 25mg po bid, pregabalin 25mg po bid (on hold), aspirin 81mg po qd, crizotinib 250mg po bid (to treat her lung cancer) #Lightheadedness -treating her lightheadedness by holding all diuretics and starting florinef 0.1mg po qd with frequent BP checks and high risk fall protocol #PPX -xanax 0.25mg po q8h prn for anxiety -ppx with lovenox 40mg sc qd and protonix 40mg po qd -pulmonary consult, Dr Feliz and cardio consult, Dr Perea, ID Dr Rooney, and Nephrology consult Dr Jang for fluid management, and neurology consult Dr Mack Smyth for dizziness Discharge Exam - Head Exam Head Exam: NORMAL INSPECTION - Additional Findings Additional findings: - Head Exam Head Exam: NORMAL INSPECTION - Additional Findings Additional findings: - Constitutional Appears: Well, Non-toxic, No Acute Distress - Head Exam Head Exam: ATRAUMATIC, NORMAL INSPECTION - Eye Exam Eye Exam: EOMI, Normal appearance, PERRL. absent: Scleral icterus - ENT Exam ENT Exam: Mucous Membranes Moist - Respiratory Exam Respiratory Exam: Wheezes, NORMAL BREATHING PATTERN - Cardiovascular Exam Cardiovascular Exam: Tachycardia, REGULAR RHYTHM, +S1, +S2. absent: JVD - GI/Abdominal Exam GI & Abdominal Exam: Normal Bowel Sounds, Soft. absent: Tenderness - Extremities Exam Extremities exam: Positive for: normal capillary refill, pedal edema, pedal pulses present - Neurological Exam Neurological exam: Alert, Oriented x3 - Psychiatric Exam Psychiatric exam: Normal Affect - Skin Skin Exam: Dry, Normal Color, Warm Discharge Plan - Follow Up Plan Condition: SERIOUS Disposition: HOME/ ROUTINE Instructions: COPD Including Emphysema (DC), Pneumonia, Adult (DC) Additional Instructions: Please discharge patient from TCU and admit to acute care after port placement which is scheduled for 3PM today with Dr Gus Jimenez. Patient is currently becoming very lightheaded upon standing and is not safe to be discharged home. S he will need to return to the acute care side so may find a solution to her lightheadedness.
--- NOTE | 2018-09-20 12:05 | PN ---
DATE: 09/20/2018 SUBJECTIVE: The patient is seen lying in bed on telemetry. She has continued to have intermittent dizziness. This is limiting her physical activities. Her diuretics have been withheld and she is now on Florinef and midodrine. Current medications include; aspirin, Mucomyst, Bactrim, Brovana, DuoNeb inhaler, ferrous sulfate, Florinef 0.1 mg daily, insulin, Lipitor 40 mg daily, metoprolol 25 mg b.i.d., Lovenox, midodrine 5 mg t.i.d., Protonix, Pulmicort, Solu-Medrol 40 mg daily and Synthroid. OBJECTIVE: GENERAL: She is a overweight middle-aged woman. VITAL SIGNS: Blood pressure is 100/60 with a pulse of 86 and regular and respirations 16. She is afebrile. HEENT: No JVD. CHEST: Bilateral scattered rhonchi heard. HEART: PMI displaced laterally with systolic murmur at lower left sternal border. ABDOMEN: Soft, obese and nontender with normoactive bowel sounds. EXTREMITIES: Trace edema. DIAGNOSTIC DATA: Sodium is 129, potassium 3.7, BUN and creatinine 30 and 0.8. White count is 11.3, hemoglobin and hematocrit 18 and 27.1 with platelet count of 314,000. IMPRESSION: 1. Recurrent dizziness, possibly exacerbated by some degree of volume depletion precipitated by diuretic use. 2. Recent decompensated congestive heart failure, predominantly right-sided. 3. Advanced lung cancer. 4. Possible Pneumocystis pneumonia. 5. Chronic obstructive pulmonary disease. 6. Chronic anemia. 7. Hyponatremia. RECOMMENDATIONS: Diuretic therapy will continue to be withheld at the present time. Consideration may need to be given to red cell transfusion to help with her symptomatology, continued lower extremity JOESPH wraps will be advised to try to limit peripheral edema. Close monitoring for volume overload with use of Florinef and Solu-Medrol is advised. Gradual increased activity as tolerated is recommended. We will continue to follow and make further things as appropriate. Vidal Fong MD
--- NOTE | 2018-09-20 13:53 | CP.PCM.PN ---
Subjective - Date & Time of Evaluation Date of Evaluation: 09/20/18 Time of Evaluation: 10:15 - Subjective Subjective: Breathing is a little better but still having some weakness and lightheadedness when trying to get out of bed. No fevers. Objective - Vital Signs/Intake and Output Vital Signs (last 24 hours): Temp Pulse Resp BP Pulse Ox 97.9 F 84 20 94/57 L 94 L 09/18/18 10:00 09/19/18 00:30 09/18/18 10:00 09/19/18 10:15 09/18/18 10:00 Intake and Output: 09/19/18 09/19/18 06:59 18:59 Intake Total 480 Output Total 400 Balance 80 - Medications Medications: Current Medications Acetylcysteine (Acetylcysteine 20%) 4 ml IH BIDRESP JOHN; Protocol Last Admin: 09/19/18 07:37 Dose: 4 ml Albuterol/Ipratropium (Duoneb 3 Mg/0.5 Mg (3 Ml) Ud) 3 ml IH [id number] JOHN; Protocol Last Admin: 09/19/18 07:37 Dose: 3 ml Alprazolam (Xanax) 0.25 mg PO Q8 PRN; Protocol PRN Reason: Anxiety Stop: 09/23/18 14:01 Last Admin: 09/18/18 14:49 Dose: 0.25 mg Arformoterol Tartrate (Brovana) 15 mcg IH [id number] JOHN; Protocol Last Admin: 09/19/18 07:37 Dose: 15 mcg Aspirin (Aspirin Chewable) 81 mg PO 0800 JOHN; Protocol Last Admin: 09/19/18 07:59 Dose: 81 mg Atorvastatin Calcium (Lipitor) 40 mg PO DAILY JOHN; Protocol Last Admin: 09/17/18 10:20 Dose: 40 mg Benzocaine/Menthol (Cepacol Sore Throat) 1 ari MT Q2H PRN PRN Reason: Sore Throat Budesonide (Pulmicort Respules) 0.25 mg IH [id number] JOHN; Protocol Last Admin: 09/19/18 07:37 Dose: 0.25 mg Al Hydrox/Mg Hydrox/Simethicone 30 ml/Diphenhydramine HCl 75 mg/Lidocaine 30 ml 0 ml PO Q2H PRN; Protocol PRN Reason: Mouth/Throat Pain Last Admin: 09/13/18 17:41 Dose: 30 bottle Dextrose (Dextrose 50% Inj) 0 ml IV STAT PRN; Protocol PRN Reason: Hypoglycemia Protocol Enoxaparin Sodium (Lovenox) 40 mg SC 0600 JOHN; Protocol Last Admin: 09/19/18 10:55 Dose: 40 mg Ferrous Sulfate (Feosol) 324 mg PO 0800,1800 JOHN; Protocol Last Admin: 09/19/18 08:00 Dose: 324 mg Fludrocortisone Acetate (Florinef) 0.1 mg PO DAILY JOHN Last Admin: 09/19/18 12:20 Dose: 0.1 mg Dextrose (Dextrose 5% In Water 1000 Ml) 1,000 mls @ 0 mls/hr IV .Q0M PRN; Protocol PRN Reason: Hypoglycemia Protocol Trimethoprim/Sulfamethoxazole (240 mg/ Dextrose) 500 mls @ 166.667 mls/hr IVPB 0600 JOHN; Protocol Last Admin: 09/19/18 05:38 Dose: 166.667 mls/hr Insulin Detemir (Levemir) 30 unit SC HS JOHN; Protocol Last Admin: 09/18/18 21:47 Dose: 30 units Insulin Human Lispro (Humalog) 10 units SC AC JOHN; Protocol Last Admin: 09/19/18 12:20 Dose: 10 units Insulin Human Lispro (Humalog Low) 0 units SC ACHS JOHN; Protocol Last Admin: 09/19/18 12:22 Dose: Not Given Levothyroxine Sodium (Synthroid) 100 mcg PO 0630 JOHN; Protocol Methylprednisolone (Solu-Medrol) 40 mg IVP 0600 JOHN; Protocol Last Admin: 09/19/18 05:49 Dose: 40 mg Metoprolol Tartrate (Lopressor) 25 mg PO 0800,1800 JOHN; Protocol Last Admin: 09/13/18 08:04 Dose: Not Given Mupirocin (Bactroban Ointment) 1 gm NS DAILY JOHN; Protocol Stop: 09/22/18 10:01 Last Admin: 09/19/18 10:13 Dose: Not Given Pantoprazole Sodium (Protonix Ec Tab) 40 mg PO 0630 JOHN; Protocol Last Admin: 09/19/18 05:39 Dose: 40 mg Trimethoprim/Sulfamethoxazole (Bactrim Ds Tab) 2 tab PO 1400,2200 JOHN; Protocol Last Admin: 09/19/18 13:28 Dose: 2 tab - Labs Labs: 09/19/18 06:15 09/19/18 06:15 - Constitutional Appears: Chronically Ill - Head Exam Head Exam: NORMAL INSPECTION - Respiratory Exam Respiratory Exam: Decreased Breath Sounds - Cardiovascular Exam Cardiovascular Exam: +S1, +S2 - GI/Abdominal Exam GI & Abdominal Exam: Soft. absent: Tenderness Assessment and Plan - Assessment and Plan (Free Text) Plan: Assessment bilteral alveolar infiltrates, consider atypical pneumonia; beta glucan posit gallito, which may be suggestive of Pneumocystis new onset leukocytosis R/O new onset sepsis history of probable right sided HCAP associated with lung mass lung cancer, non-small cell, stage 4 morbid obesity with BMI 40 dyslipidemia colon cancer Plan continue Bactrim IV day 11 for 14-21 days but on discussion with Dr. Jang, she is fluid-restricted - will keep the morning dose of Bactrim IV, then the 2pm dose and 10 pm doses Bactrim DS PO - will follow up ABG to see if her oxygenation is better and if it is, we can switch to Mepron Overall prognosis is poor will continue to monitor clinically discussed with Dr. Adames - patient to be transferred to acute care floor for further care repeat cultures are negative
[2018-09-20] MEDS: Tmp-Smz 800 mg-160 mg DS Tab PO SCH (14:04)
--- NOTE | 2018-09-20 15:27 | PN ---
DATE: 09/20/2018 PULMONARY PROGRESS NOTE REFERRING PHYSICIAN: Gerard Gibson MD SUBJECTIVE: The patient is sitting up in bed. Head of bed elevated. Reports still feeling dizzy this morning and he is still shaky and weak when transferring with rolling walker. The patient is scheduled for port placement today and then to be transferred over to acute side of the hospital. Still has some coughing and shortness of breath with exertion. No headache, rhinitis, chest pain, abdominal pain, nausea, vomiting, diarrhea or leg pain reported. Leg swelling has decreased. OBJECTIVE: VITAL SIGNS: Blood pressure 100/62, pulse 85, temperature 97.4 and oxygen saturation 94%. GENERAL: No acute distress. HEENT: Moist mucous membranes. Crowded airways. Mallampati score of 4. NECK: Supple. No JVD. LUNGS: Rhonchi bilaterally. CARDIOVASCULAR: S1 and S2. ABDOMEN: Soft and nontender. No distention. No organomegaly. EXTREMITIES: JOESPH wrap to bilateral lower extremity. Decreased edema bilateral lower extremity. NEUROLOGIC: Awake, alert, and verbal. Follows commands. MEDICATIONS: Reviewed. Mucomyst 4 mL inhalation twice a day, Magic mouthwash every 2 hours p.r.n., DuoNeb 3 mL inhalation every 4 hours, Xanax 0.25 mg every 8 hours p.r.n., Brovana 15 mcg every 12 hours, aspirin 81 mg daily, Lipitor 40 mg daily, Cepacol throat lozenges every 2 hours p.r.n., Pulmicort 0.25 mg every 12 hours, Lovenox 40 mg daily, ferrous sulfate 324 mg twice a day, Florinef 0.1 mg daily, Levemir 30 mg at bedtime, Humalog 10 units subcutaneous a.c., Humalog sliding scale a.c. and at bedtime, Synthroid 100 mcg daily, Solu-Medrol 40 mg daily, metoprolol tartrate 25 mg twice a day, midodrine 5 mg three times a day, Protonix 40 mg daily and Bactrim DS 2 tabs twice a day, Bactrim IV 240 daily. LABORATORY DATA: Reviewed. WBC 11.3, RBC 3.4, hemoglobin 8, hematocrit 27.1 and platelets 314. Sodium 129, potassium 3.7, chloride 92, carbon dioxide 34, anion gap 8, BUN 30, creatinine 0.8, GFR is greater than 60, POC glucose 275, random glucose 117, calcium 7.6, total bilirubin 0.4, AST 51, ALT 26, alkaline phosphatase 125, total protein 4.5, albumin 2.1, globulin 2.1 and albumin-globulin ratio 0.9. Chest CT shows considerable improvement without complete resolution of multifocal alveolar changes, stable tumor burden, primary appears in the superior segment of the right lower lobe, extensive mediastinal and hilar adenopathy identified. IMPRESSION AND PLAN: Lung cancer, chronic obstructive lung disease, gastroesophageal reflux disease, hypothyroidism, obesity, sleep apnea syndrome, anemia, pulmonary hypertension, cardiac diastolic dysfunction, activities of daily living dysfunction and orthostatic hypotension. The patient is scheduled for port placement today. Pulmonary point of view; continue inhaled bronchodilators, orthostatic hypotension precaution, continue abdominal binder and JOESPH wrap to bilateral lower extremities. Continue continuous positive airway pressure use at bedtime, sleep apnea precaution, head of bed elevated at 45 degrees, continue diuretics, gastric prophylaxis, fall precautions. Close cardiopulmonary monitoring while sedated. This patient was seen and examined with Dr. Feliz. Discussed assessment and plan as described above. The patient was seen and examined with Juan Richardson, nurse practitioner. Discussed assessment and plan as described above. Thank you for this consult. We will follow with you. Juan Richardson APN Hussein Feliz MD DAVID
[2018-09-20 16:45] VITALS: BP 82/52; O2SAT 92
[2018-09-20 17:14] VITALS: TEMP 97.5
--- NOTE | 2018-09-20 19:22 | PN ---
DATE: 09/20/2018 SUBJECTIVE: The patient is seen sitting in bed. She is awake. She is alert. She is comfortable. She still complains of dizziness when she stands up. PHYSICAL EXAMINATION: GENERAL: Obese elderly lady sitting in bed. VITAL SIGNS: Blood pressure 100/62, heart rate 85, respiratory rate 20, temperature 97.4. HEENT: Normocephalic, atraumatic, positive pallor. NECK: Supple. No JVD. CARDIOPULMONARY: S1 and S2, regular rate and rhythm. No murmur. No rub. LUNGS: Bilateral equal entry, bilateral equal expansion. ABDOMEN: Obese, distended, soft, nontender, bowel sounds present. EXTREMITIES: 2+ pitting edema of the lower extremities. INTAKE AND OUTPUT: 480/400. LABORATORY DATA: WBC 11, hemoglobin 8, hematocrit 27, platelets 314. Sodium 129, potassium 3.7, chloride 92, CO2 34, BUN 30, creatinine 0.8, glucose 117, calcium 7.6, albumin 2.1, corrected calcium is 9. AST 51, ALT 96. Blood culture, no growth. Urine culture, no growth. CURRENT MEDICATIONS: Mucomyst, Brovana, Feosol, Florinef 0.1, Lipitor 40, Lopressor 25 b.i.d. on hold, ProAmatine 5 mg t.i.d., Protonix, Pulmicort. ASSESSMENT: 1. Hyponatremia., likely secondary to syndrome of inappropriate antidiuretic hormone secretion. 2. Orthostatic hypotension. The patient was started on Florinef and ProAmatine, but Florinef was not given today. 3. Mild prerenal azotemia. 4. Stage IV non-small cell cancer of the lung. 5. History of colon cancer. 6. Coronary artery disease, paroxysmal atrial fibrillation. 7. Chronic obstructive pulmonary disease. PLAN: 1. Continue Florinef. 2. Continue ProAmatine 5 t.i.d. 3. Continue physical therapy. 4. Continue pressure stockings. Tamiko Jang MD
[2018-09-20] MEDS ORDERED: Insulin Detemir 100 units/ml Vial (Levemir) SC SCH (22:00)
--- NOTE | 2018-09-20 22:17 | PN ---
DATE: 09/20/2018 ENDO FOLLOWUP NOTE LOCATION: Room 321, [facility]. SUBJECTIVE: This is a 68-year-old female with recent uncontrolled type 2 insulin-requiring diabetes, most likely steroid and currently on a tapering IV steroid therapy as given and is now being followed closely for metabolic management. LABORATORY DATA: Her glycemic levels are fluctuating, but improved and actually on the low side of normal overnight with glucose levels ranging from 80 to 124 mg/dL. Her glucose this morning was to 275 mg/dL. Her chemistry showed a BUN of 30, sodium 129, potassium 3.7, chloride 92, CO2 34, glucose 117, and creatinine 0.8. ASSESSMENT AND PLAN: the patient actually has not been in any kind of diabetic medications nor insulin therapy at home as discussed yesterday. She may have to go home on oral hypoglycemic therapy as given and as noted and discussed with the patient. In the meantime, we will discontinue her prandial insulin with Humalog given as 10 units t.i.d. before meals as ordered. We will switch her over to metformin given as 500 mg b.i.d. after meals to start today as ordered. We will also lower the basal insulin with Levemir given as 30 units down to 14 units at bedtime to start tonight. We will obtain serial chemistries and supplement accordingly as needed. We will follow. Crystal Mcgregor MD
== END 2018-09-20 12:59 | disposition short-term general hospital (02) | DRG 190 ==
LOC: TRCU 15:27
PROVIDERS: ADMIT Family Medicine; ATTEND Family Medicine
PROC: F07Z9FZ Gait Training/Functional Ambulation Treatment using Assistive, Adaptive, Supportive or Protective Equipment (ICD-10-PCS; principal; 2018-09-13)
PROC: F07M6ZZ Therapeutic Exercise Treatment of Musculoskeletal System - Whole Body (ICD-10-PCS; 2018-09-13)
PROC: F08Z1ZZ Dressing Techniques Treatment (ICD-10-PCS; 2018-09-13)
PROC: F08Z2ZZ Grooming/Personal Hygiene Treatment (ICD-10-PCS; 2018-09-13)
PROC: F08Z0ZZ Bathing/Showering Techniques Treatment (ICD-10-PCS; 2018-09-13)
DX: J44.0 Chronic obstructive pulmonary disease with (acute) lower respiratory infection (principal); J18.9 Pneumonia, unspecified organism; I50.43 Acute on chronic combined systolic (congestive) and diastolic (congestive) heart failure; C34.90 Malignant neoplasm of unspecified part of unspecified bronchus or lung; E22.2 Syndrome of inappropriate secretion of antidiuretic hormone; I47.1 Supraventricular tachycardia; Z68.41 Body mass index [BMI] 40.0-44.9, adult; J44.1 Chronic obstructive pulmonary disease with (acute) exacerbation; Z85.038 Personal history of other malignant neoplasm of large intestine; D50.9 Iron deficiency anemia, unspecified; D63.8 Anemia in other chronic diseases classified elsewhere; E03.9 Hypothyroidism, unspecified; E05.90 Thyrotoxicosis, unspecified without thyrotoxic crisis or storm; E11.65 Type 2 diabetes mellitus with hyperglycemia; E66.01 Morbid (severe) obesity due to excess calories; E78.5 Hyperlipidemia, unspecified; E87.5 Hyperkalemia; F41.9 Anxiety disorder, unspecified; G47.30 Sleep apnea, unspecified; I25.10 Atherosclerotic heart disease of native coronary artery without angina pectoris; I25.2 Old myocardial infarction; I27.20 Pulmonary hypertension, unspecified; I48.0 Paroxysmal atrial fibrillation; I95.1 Orthostatic hypotension; K21.9 Gastro-esophageal reflux disease without esophagitis; R13.13 Dysphagia, pharyngeal phase; T38.0X5A Adverse effect of glucocorticoids and synthetic analogues, initial encounter; T50.2X5A Adverse effect of carbonic-anhydrase inhibitors, benzothiadiazides and other diuretics, initial encounter; Y84.2 Radiological procedure and radiotherapy as the cause of abnormal reaction of the patient, or of later complication, without mention of misadventure at the time of the procedure; Y95 Nosocomial condition; Z79.4 Long term (current) use of insulin; Z79.82 Long term (current) use of aspirin; Z79.899 Other long term (current) drug therapy; Z87.891 Personal history of nicotine dependence; Z90.49 Acquired absence of other specified parts of digestive tract; Z92.3 Personal history of irradiation

== ENCOUNTER 2018-09-17 13:39 | Outpatient (CLI) | payer MEDICARE | END 2018-09-17 13:40 | disposition home or self-care (01) | LOC: RAD 13:39 ==

== ENCOUNTER 2018-09-20 12:59 | Inpatient (IN) | payer MEDICARE ==
[2018-09-20] MEDS ORDERED: Lidocaine 2% Inj (20ml) ONE (16:49)
[2018-09-20] MEDS ORDERED: Midazolam 2 MG/2 ML VIAL ONE (17:24)
[2018-09-20] MEDS ORDERED: Iodixanol 320 MG/ML 100 ML BOTTLE IV ONE (17:36)
[2018-09-20] MEDS ORDERED: Oxycodone/Acetaminophen 5/325 mg Tab PO PRN (17:59)
[2018-09-20] MEDS ORDERED: Sodium Chloride 0.45% 1,000 ML IV SCH (18:00)
--- NOTE | 2018-09-20 21:40 | VASCULAR ---
PROCEDURE: Ultrasound and fluoroscopic right internal jugular venous access port. CLINICAL HISTORY: Lung carcinoma.Venous port for chemotherapy. PHYSICIAN(S): Gus Jimenez M.D. TECHNIQUE: The relative risks and indications of the procedure were explained to the patient and consent obtained. The patient was placed supine on the arteriogram table and the right neck and chest prepped and draped in the usual sterile fashion. Conscious sedation monitoring was provided throughout the procedure by a nurse. Antibiotics were given prior to the procedure. Under direct ultrasound guidance, the right internal jugular vein was punctured with a micro-puncture set. A 0.035 angled Glidewire was advanced into the IVC. A 4 cm incision was made below the right clavicle and the pocket blunted dissected. A 8 Sinhala single-lumen catheter, 21 cm long, was advanced to the SVC/RA junction. The catheter was trimmed and attached to the port. The port aspirates and injects easily. The port was placed in the pocket and closed in 2 layers. The patient tolerated the procedure well. IMPRESSION: Ultrasound and fluoroscopically placed right internal jugular venous access port.
[2018-09-20] MEDS ORDERED: Tmp-Smz 800 mg-160 mg DS Tab PO SCH (23:30)
[2018-09-20] MEDS ORDERED: Acetylcysteine 20% Inhal Sol (30ml) IH SCH (23:45)
[2018-09-21] MEDS ORDERED: TRIMETHOPRIM IVPB SCH
[2018-09-21] MEDS ORDERED: WATER IVPB SCH
[2018-09-21] MEDS ORDERED: DEXTROSE 5% IVPB SCH
[2018-09-21] MEDS ORDERED: SULFAMETHOXAZOLE IVPB SCH
[2018-09-21] MEDS ORDERED: MethylPREDNISolone 40 mg Vial IV SCH
[2018-09-21] MEDS ORDERED: Acetylcysteine 20% Inhal Soln (4ml) IH SCH (00:02)
[2018-09-21] MEDS ORDERED: MethylPREDNISolone 40 mg Vial IVP SCH (00:17)
[2018-09-21 00:19] VITALS: BMI 44.1
[2018-09-21] MEDS ORDERED: Tmp-Smz 800 mg-160 mg DS Tab PO SCH ×2 (01:23→10:05)
[2018-09-21] MEDS: Albuterol-Ipratrop 3 mg / 0.5 (3 ml) UD IH SCH ×5 (04:09→23:51)
[2018-09-21] MEDS: DEXTROSE 5% IVPB SCH (05:04)
[2018-09-21] MEDS: SULFAMETHOXAZOLE IVPB SCH (05:04)
[2018-09-21] MEDS: WATER IVPB SCH (05:04)
[2018-09-21] MEDS: TRIMETHOPRIM IVPB SCH (05:04)
[2018-09-21] MEDS ORDERED: Pantoprazole 40 mg EC Tab PO SCH (06:00)
[2018-09-21 06:39] LABS: HEMOGLOBIN 8.5 g/dL (12.0-16.0); MEAN CELL VOLUME 81.5 fl (80.0-105.0); MEAN CORPUSCULAR HEMOGLOBIN 24.9 pg (25.0-35.0); MEAN CORPUSCULAR HGB CONC 30.6 g/dl (31.0-37.0); MEAN PLATELET VOLUME 10.2 fl (7.0-11.0); RBC 3.41 10^6/uL (3.5-6.1); RED CELL DISTRIBUTION WIDTH 25.1 % (11.5-14.5); WHITE BLOOD COUNT 10.6 10^3/uL (4.5-11.0)
[2018-09-21 06:52] LABS: ALB/GLOB RATIO 0.9 (1.1-1.8); ALBUMIN 2.2 g/dL (3.0-4.8); ALT/SGPT 97 U/L (7-56); AST/SGOT 45 U/L (14-36); BLOOD UREA NITROGEN 25 mg/dL (7-21); CALCIUM 8.1 mg/dL (8.4-10.5); GFR NON-AFRICAN AMERICAN > 60
[2018-09-21] MEDS ORDERED: Insulin Reg-LOW-Coverage SC SCH (07:30)
[2018-09-21] MEDS: Acetylcysteine 20% Inhal Soln (4ml) IH SCH ×3 (07:33→19:37)
[2018-09-21] MEDS: Arformoterol 15 mcg/2 ml Inh Sol IH SCH ×2 (07:34→19:37)
[2018-09-21] MEDS: Budesonide 0.25 mg/2 ml Inhal Susp UD IH SCH (07:35)
[2018-09-21] MEDS: Enoxaparin 40 mg Syringe SC SCH (09:11)
[2018-09-21] MEDS ORDERED: Dextrose 50% SYRINGE Inj (50 ml) IV PRN (09:55)
[2018-09-21] MEDS ORDERED: methylPREDNISolone 40 GM in Sodium Chloride 0.9% 250 ML IV SCH (10:00)
--- NOTE | 2018-09-21 10:43 | CP.PCM.APN ---
Subjective - Date & Time of Evaluation Date of Evaluation: 09/21/18 Time of Evaluation: 09:40 - Subjective Subjective: Pt. seen and examined in bed. States feels dizzy, unable to stand without feeling dizzy, some shortness of breath noted.Denied chest pain. Objective - Vital Signs/Intake and Output Vital Signs (last 24 hours): Temp Pulse Resp BP Pulse Ox 97.7 F 77 18 123/68 97 09/21/18 08:15 09/21/18 08:15 09/21/18 08:15 09/21/18 08:15 09/21/18 08:15 Intake and Output: 09/21/18 09/21/18 06:59 18:59 Intake Total 180 Balance 180 - Medications Medications: Current Medications Acetaminophen (Tylenol 325mg Tab) 650 mg PO Q4 PRN PRN Reason: Pain, Mild (1-3) Acetylcysteine (Acetylcysteine 20%) 2 ml IH BID [facility] Last Admin: 09/21/18 07:33 Dose: 2 ml Albuterol/Ipratropium (Duoneb 3 Mg/0.5 Mg (3 Ml) Ud) 3 ml IH [id number] [facility] Last Admin: 09/21/18 07:34 Dose: 3 ml Arformoterol Tartrate (Brovana) 15 mcg IH [id number] [facility] Last Admin: 09/21/18 07:34 Dose: 15 mcg Aspirin (Aspirin Chewable) 81 mg PO DAILY [facility] Atorvastatin Calcium (Lipitor) 40 mg PO DIN [facility] Budesonide (Pulmicort Respules) 0.25 mg IH [id number] [facility] Last Admin: 09/21/18 07:35 Dose: 0.25 mg Dextrose (Dextrose 50% Inj) 0 ml IV STAT PRN; Protocol PRN Reason: Hypoglycemia Protocol Enoxaparin Sodium (Lovenox) 40 mg SC DAILY [facility]; Protocol Last Admin: 09/21/18 09:11 Dose: 40 mg Ferrous Sulfate (Feosol) 324 mg PO BID [facility] Fludrocortisone Acetate (Florinef) 0.1 mg PO DAILY [facility] Last Admin: 09/21/18 09:12 Dose: 0.1 mg Trimethoprim/Sulfamethoxazole (240 mg/ Dextrose) 500 mls @ 166.667 mls/hr IVPB 0600 [facility]; Protocol Last Admin: 09/21/18 05:04 Dose: 166.667 mls/hr Dextrose (Dextrose 5% In Water 1000 Ml) 1,000 mls @ 0 mls/hr IV .Q0M PRN; Protocol PRN Reason: Hypoglycemia Protocol Insulin Detemir (Levemir) 30 unit SC HS [facility] Insulin Human Lispro (Humalog Med) 0 units SC ACHS [facility]; Protocol Levothyroxine Sodium (Synthroid) 100 mcg PO 0600 [facility] Methylprednisolone (Solu-Medrol) 40 mg IVP DAILY Stop: 10/05/18 23:59 Metoprolol Tartrate (Lopressor) 25 mg PO BID [facility] Midodrine (Proamatine) 5 mg PO TID [facility] Ondansetron HCl (Zofran Inj) 4 mg IVP Q6H PRN PRN Reason: Nausea/Vomiting Oxycodone/Acetaminophen (Percocet 5/325 Mg Tab) 1 tab PO Q4H PRN PRN Reason: Pain, moderate (4-7) Stop: 09/23/18 18:00 Pantoprazole Sodium (Protonix Ec Tab) 40 mg PO DAILY [facility] Trimethoprim/Sulfamethoxazole (Bactrim Ds Tab) 2 tab PO 1400,2200 [facility]; Protocol - Labs Labs: 09/21/18 06:20 09/21/18 06:20 - Constitutional Appears: Well, Non-toxic - Head Exam Head Exam: NORMOCEPHALIC - Eye Exam Eye Exam: absent: Conjunctival injection, EOMI, Normal appearance, Nystagmus, Periorbital swelling, Periorbital tenderness, PERRL, Scleral icterus - ENT Exam ENT Exam: absent: Mucous Membranes Dry, Mucous Membranes Moist, Normal Exam, Normal External Ear Exam, Normal Oropharynx, TM's Normal Bilaterally - Neck Exam Neck Exam: Full ROM - Respiratory Exam Respiratory Exam: Clear to Ausculation Bilateral - Cardiovascular Exam Cardiovascular Exam: REGULAR RHYTHM, +S1, +S2 - GI/Abdominal Exam GI & Abdominal Exam: Soft, Normal Bowel Sounds - Rectal Exam Rectal Exam: Deferred - Exam Exam: absent: Circumcision, NORMAL INSPECTION, Scrotal Swelling, Testicular Tenderness, Uretheral Discharge, Testicular Vertical Lie, Bladder Distension External exam: absent: Ecchymosis, Erythema, Lacerations, Lesions, NORMAL EXTERNAL EXAM, Swelling Speculum exam: absent: Cervical Discharge, Erythema, Foreign Body, Laceration, NORMAL SPECULUM EXAM, Tissue, Vaginal Bleeding, Vaginal Discharge Bimanual exam: absent: Adenexal Mass, Adnexal, Cervical Motion Tendernes, NORMAL BIMANUAL EXAM, Uterine Enlargement, Uterine Tenderness - Extremities Exam Extremities Exam: Pedal Edema - Neurological Exam Neurological Exam: Alert, Awake - Skin Skin Exam: Dry, Intact, Normal Color, Warm Assessment and Plan - Assessment and Plan (Free Text) Assessment: ITS Impressions Interventional Vascular Procedure 09/20/18 15:00 IMPRESSION: Ultrasound and fluoroscopically placed right internal jugular venous access port. Assessment: 68 year old female with a PMHx of unresectable stage III NSCLC with an ALK mut ation, COPD, CHF, ASCVD, hx of colon cancer with resection stage 2, [place], AFib (now resolved), anemia of chronic disease, low vitamin D, obesity who presented with dizziness, worse , admitted from [facility], s/p portacath insertion to right [facility]. Plan: 1. Dizziness, s/p portacath insertion -maybe r/t orthostatic hypotension cont. Florinef, Midodrine, Renal and card consults pending 2. Unresectable Lung CA, Stage III completed RAdiation with Dr Sinha 3..Right Upper Lobe Infiltrate 2/2 Radiation Induced or Superimposed HCAP Cont. IV Antibx per I.D. 4.. COPD On Duonebs, Bronchodilators, Solumedrol 40 IV Daily - Pulm consult pending. 5. B/L LE Edema- likely secondary to Right Sided CHF Diuretics, cardiology consult pending. Will cont to monitor clinical status and follow closely. Will D/w with consultants, PMD.
[2018-09-21] MEDS ORDERED: Insulin Lispro (humaLOG) MEDIUM Coverage SC SCH (11:30)
--- NOTE | 2018-09-21 12:39 | CP.PCM.CON ---
<Jaime Valero - Last Filed: 09/21/18 12:40> History of Present Illness - History of Present Illness History of Present Illness: Infectious disease consult note: 68-year-old female with past medical history of lung cancer with non-small cell carcinoma, morbid obesity, hyperlipidemia, colon cancer s/p resection presented initially with shortness of breath found to have bilateral alveolar infiltrates possibly consider atypical pneumonia. Patient was positive for beta glucan and possibly suggestive of pneumocystis on Bactrim therapy. Overnight patient did well denies any episode of shortness of breath or coughing. Patient went for a right IJ venous access port yesterday. Denies any other complaints at this time. 12 point ROS performed and negative other than stated above PMH: As above PSH: Status post colon resection PSH: Patient is a former smoker however denies any drinking or drug use Allergies: NKA FamHx: both parents from age-related illness Review of Systems - Review of Systems All systems: reviewed and no additional remarkable complaints except Past Patient History - Infectious Disease Hx of Infectious Diseases: None - Past Social History Smoking Status: Former Smoker - CARDIAC Hx Cardiac Disorders: Yes (STEMI) Hx Pacemaker: No - PULMONARY Hx Respiratory Disorders: Yes (USED TO SMOKE 1.5 CIGARETTES A DAY. QUIT) Hx Chronic Obstructive Pulmonary Disease (COPD): Yes Hx Pneumonia: Yes Other/Comment: PLEURAL EFFUSION - NEUROLOGICAL Hx Neurological Disorder: No - HEENT Hx HEENT Problems: Yes (Glasses) Hx Cataracts: Yes Other/Comment: detached retina left eye - RENAL Hx Chronic Kidney Disease: No - ENDOCRINE/METABOLIC Hx Endocrine Disorders: Yes Hx Hypothyroidism: Yes - HEMATOLOGICAL/ONCOLOGICAL Hx Blood Disorders: Yes (blood transfusion) Hx Anemia: Yes (iron deficiency) Hx Cancer: Yes (Lung, colon) Other/Comment: 09/2017 pt had a colon resection no chemo, r lung non small cell stage III ca takes chemo pill started radiation in 08/01, has completed 12 treatments tuesday through tuesday, needs 36 total radiation treatments - INTEGUMENTARY Hx Dermatological Problems: Yes Other/Comment: multiple moles around neck chest, b/l arms multiple skin tears and this dry skin,multiple bruises bruising to abd from "heparin" injections last admission, lle 1.2cm x 0.6cm open wound yellow surrounded by red skin, pt hit a chair about 2 months ago, redness to b/l groin on and off, slight redness ble - MUSCULOSKELETAL/RHEUMATOLOGICAL Hx Musculoskeletal Disorders: Yes (SCIATICA) Hx Falls: Yes - GASTROINTESTINAL Hx Gastrointestinal Disorders: Yes (COLON CA H/O COLON RESECTION) - GENITOURINARY/GYNECOLOGICAL Hx Genitourinary Disorders: No - PSYCHIATRIC Hx Emotional Abuse: No Hx Physical Abuse: No Hx Substance Use: No - SURGICAL HISTORY Hx Surgeries: Yes (PORT TO [facility] 2-6-19,LUNG BX,COLON RESECTION) - ANESTHESIA Hx Anesthesia Reactions: No Hx Malignant Hyperthermia: No Meds Allergies/Adverse Reactions: Allergies Allergy/AdvReac Type Severity Reaction Status Date / Time No Known Allergies Allergy Verified 09/20/18 22:36 - Medications Medications: Current Medications Acetaminophen (Tylenol 325mg Tab) 650 mg PO Q4 PRN PRN Reason: Pain, Mild (1-3) Acetylcysteine (Acetylcysteine 20%) 2 ml IH BID [facility] Last Admin: 09/21/18 10:48 Dose: Not Given Albuterol/Ipratropium (Duoneb 3 Mg/0.5 Mg (3 Ml) Ud) 3 ml IH [id number] [facility] Last Admin: 09/21/18 10:49 Dose: 3 ml Arformoterol Tartrate (Brovana) 15 mcg IH [id number] [facility] Last Admin: 09/21/18 07:34 Dose: 15 mcg Aspirin (Aspirin Chewable) 81 mg PO DAILY [facility] Atorvastatin Calcium (Lipitor) 40 mg PO DIN [facility] Budesonide (Pulmicort Respules) 0.25 mg IH [id number] [facility] Last Admin: 09/21/18 07:35 Dose: 0.25 mg Dextrose (Dextrose 50% Inj) 0 ml IV STAT PRN; Protocol PRN Reason: Hypoglycemia Protocol Enoxaparin Sodium (Lovenox) 40 mg SC DAILY [facility]; Protocol Last Admin: 09/21/18 09:11 Dose: 40 mg Ferrous Sulfate (Feosol) 324 mg PO BID [facility] Fludrocortisone Acetate (Florinef) 0.1 mg PO DAILY [facility] Last Admin: 09/21/18 09:12 Dose: 0.1 mg Trimethoprim/Sulfamethoxazole (240 mg/ Dextrose) 500 mls @ 166.667 mls/hr IVPB 0600 [facility]; Protocol Last Admin: 09/21/18 05:04 Dose: 166.667 mls/hr Dextrose (Dextrose 5% In Water 1000 Ml) 1,000 mls @ 0 mls/hr IV .Q0M PRN; Protocol PRN Reason: Hypoglycemia Protocol Insulin Detemir (Levemir) 30 unit SC HS [facility] Insulin Human Lispro (Humalog Med) 0 units SC ACHS [facility]; Protocol Levothyroxine Sodium (Synthroid) 100 mcg PO 0600 [facility] Methylprednisolone (Solu-Medrol) 40 mg IVP DAILY Stop: 10/05/18 23:59 Metoprolol Tartrate (Lopressor) 25 mg PO BID [facility] Midodrine (Proamatine) 5 mg PO TID [facility] Ondansetron HCl (Zofran Inj) 4 mg IVP Q6H PRN PRN Reason: Nausea/Vomiting Oxycodone/Acetaminophen (Percocet 5/325 Mg Tab) 1 tab PO Q4H PRN PRN Reason: Pain, moderate (4-7) Stop: 09/23/18 18:00 Pantoprazole Sodium (Protonix Ec Tab) 40 mg PO DAILY [facility] Trimethoprim/Sulfamethoxazole (Bactrim Ds Tab) 2 tab PO 1400,2200 [facility]; Protocol Physical Exam - Constitutional Appears: No Acute Distress - Head Exam Head Exam: ATRAUMATIC, NORMOCEPHALIC - Eye Exam Eye Exam: EOMI, PERRL - ENT Exam ENT Exam: Mucous Membranes Moist - Respiratory Exam Respiratory Exam: Clear to Auscultation Bilateral. absent: Rales, Wheezes - Cardiovascular Exam Cardiovascular Exam: REGULAR RHYTHM, +S1, +S2 - GI/Abdominal Exam GI & Abdominal Exam: Normal Bowel Sounds, Soft - Extremities Exam Extremities exam: Negative for: calf tenderness, pedal edema - Neurological Exam Neurological exam: Alert, Oriented x3 - Psychiatric Exam Psychiatric exam: Normal Mood - Skin Skin Exam: Dry, Warm Results - Vital Signs Recent Vital Signs: Last Vital Signs Temp 97.7 F 09/21/18 08:15 Pulse 77 09/21/18 08:15 Resp 18 09/21/18 08:15 BP 123/68 09/21/18 08:15 Pulse Ox 97 09/21/18 08:15 - Labs Result Diagrams: 09/21/18 06:20 09/21/18 06:20 Labs: Laboratory Results - last 24 hr 09/20/18 09/21/18 09/21/18 21:58 06:20 06:20 WBC 10.6 RBC 3.41 L Hgb 8.5 L Hct 27.8 L MCV 81.5 MCH 24.9 L MCHC 30.6 L RDW 25.1 H Plt Count 316 MPV 10.2 Sodium 132 Potassium 4.0 Chloride 96 L Carbon Dioxide 36 H Anion Gap 4 L BUN 25 H Creatinine 0.8 Est GFR ( Amer) > 60 Est GFR (Non-Af Amer) > 60 POC Glucose (mg/dL) 205 H Random Glucose 92 Calcium 8.1 L Total Bilirubin 0.4 AST 45 H ALT 97 H Alkaline Phosphatase 135 H Total Protein 4.6 L Albumin 2.2 L Globulin 2.4 Albumin/Globulin Ratio 0.9 L 09/21/18 09/21/18 07:29 11:38 WBC RBC Hgb Hct MCV MCH MCHC RDW Plt Count MPV Sodium Potassium Chloride Carbon Dioxide Anion Gap BUN Creatinine Est GFR ( Amer) Est GFR (Non-Af Amer) POC Glucose (mg/dL) 192 H 164 H Random Glucose Calcium Total Bilirubin AST ALT Alkaline Phosphatase Total Protein Albumin Globulin Albumin/Globulin Ratio Assessment & Plan - Assessment and Plan (Free Text) Assessment: 68-year-old female with past medical history of lung cancer with non-small cell carcinoma, morbid obesity, hyperlipidemia, colon cancer s/p resection presented initially with shortness of breath found to have bilateral alveolar infiltrates possibly consider atypical pneumonia, beta glucan positive, which may be suggestive of Pneumocystis - Continue Bactrim IV day 11 for 14-21 days but on discussion with Dr. Jang, she is fluid-restricted - will keep the morning dose of Bactrim IV, then the 2pm dose and 10 pm doses Bactrim DS PO - will follow up ABG to see if her oxygenation is better and if it is, we can switch to Mepron - F/u hem/onc recs s/p R IJ venous access port - F/u septic work up - Cont to monitor for any changes Case and plan was reviewed and discussed with Dr Perdomo. <Chaim Perdomo - Last Filed: 09/21/18 18:02> Meds - Medications Medications: Current Medications Acetaminophen (Tylenol 325mg Tab) 650 mg PO Q4 PRN PRN Reason: Pain, Mild (1-3) Acetylcysteine (Acetylcysteine 20%) 2 ml IH BID [facility] Last Admin: 02/07/19 10:48 Dose: Not Given Albuterol/Ipratropium (Duoneb 3 Mg/0.5 Mg (3 Ml) Ud) 3 ml IH [id number] [facility] Last Admin: 09/21/18 10:49 Dose: 3 ml Arformoterol Tartrate (Brovana) 15 mcg IH [id number] [facility] Last Admin: 09/21/18 07:34 Dose: 15 mcg Aspirin (Aspirin Chewable) 81 mg PO DAILY [facility] Last Admin: 09/21/18 14:21 Dose: 81 mg Atorvastatin Calcium (Lipitor) 40 mg PO DIN [facility] Budesonide (Pulmicort Respules) 0.25 mg IH [id number] [facility] Last Admin: 09/21/18 07:35 Dose: 0.25 mg Dextrose (Dextrose 50% Inj) 0 ml IV STAT PRN; Protocol PRN Reason: Hypoglycemia Protocol Enoxaparin Sodium (Lovenox) 40 mg SC DAILY [facility]; Protocol Last Admin: 09/21/18 09:11 Dose: 40 mg Ferrous Sulfate (Feosol) 324 mg PO BID [facility] Last Admin: 09/21/18 17:27 Dose: 324 mg Fludrocortisone Acetate (Florinef) 0.1 mg PO BID [facility] Last Admin: 09/21/18 17:27 Dose: 0.1 mg Trimethoprim/Sulfamethoxazole (240 mg/ Dextrose) 500 mls @ 166.667 mls/hr IVPB 0600 [facility]; Protocol Last Admin: 09/21/18 05:04 Dose: 166.667 mls/hr Dextrose (Dextrose 5% In Water 1000 Ml) 1,000 mls @ 0 mls/hr IV .Q0M PRN; Protocol PRN Reason: Hypoglycemia Protocol Insulin Detemir (Levemir) 14 unit SC HS [facility] Insulin Human Lispro (Humalog Low) 0 units SC ACHS [facility]; Protocol Last Admin: 09/21/18 17:28 Dose: Not Given Insulin Human Lispro (Humalog) 4 units SC AC [facility] Last Admin: 09/21/18 17:27 Dose: 4 units Levothyroxine Sodium (Synthroid) 100 mcg PO 0600 [facility] Methylprednisolone (Solu-Medrol) 40 mg IVP DAILY Stop: 10/05/18 23:59 Metoprolol Tartrate (Lopressor) 25 mg PO BID [facility] Midodrine (Proamatine) 10 mg PO TID [facility] Last Admin: 09/21/18 17:27 Dose: 10 mg Ondansetron HCl (Zofran Inj) 4 mg IVP Q6H PRN PRN Reason: Nausea/Vomiting Oxycodone/Acetaminophen (Percocet 5/325 Mg Tab) 1 tab PO Q4H PRN PRN Reason: Pain, moderate (4-7) Stop: 09/23/18 18:00 Pantoprazole Sodium (Protonix Ec Tab) 40 mg PO DAILY [facility] Trimethoprim/Sulfamethoxazole (Bactrim Ds Tab) 2 tab PO 1400,2200 [facility]; Protocol Last Admin: 09/21/18 14:18 Dose: 2 tab Results - Vital Signs Recent Vital Signs: Last Vital Signs Temp 98.0 F 09/21/18 17:38 Pulse 98 H 09/21/18 17:38 Resp 19 09/21/18 17:38 BP 101/61 09/21/18 17:38 Pulse Ox 95 09/21/18 17:38 - Labs Result Diagrams: 09/21/18 06:20 09/21/18 06:20 Labs: Laboratory Results - last 24 hr 09/20/18 09/21/18 09/21/18 21:58 06:20 06:20 WBC 10.6 RBC 3.41 L Hgb 8.5 L Hct 27.8 L MCV 81.5 MCH 24.9 L MCHC 30.6 L RDW 25.1 H Plt Count 316 MPV 10.2 Sodium 132 Potassium 4.0 Chloride 96 L Carbon Dioxide 36 H Anion Gap 4 L BUN 25 H Creatinine 0.8 Est GFR ( Amer) > 60 Est GFR (Non-Af Amer) > 60 POC Glucose (mg/dL) 205 H Random Glucose 92 Uric Acid Calcium 8.1 L Total Bilirubin 0.4 AST 45 H ALT 97 H Alkaline Phosphatase 135 H Total Protein 4.6 L Albumin 2.2 L Globulin 2.4 Albumin/Globulin Ratio 0.9 L 09/21/18 09/21/18 09/21/18 07:00 07:29 11:38 WBC RBC Hgb Hct MCV MCH MCHC RDW Plt Count MPV Sodium Potassium Chloride Carbon Dioxide Anion Gap BUN Creatinine Est GFR ( Amer) Est GFR (Non-Af Amer) POC Glucose (mg/dL) 192 H 164 H Random Glucose Uric Acid 4.5 Calcium Total Bilirubin AST ALT Alkaline Phosphatase Total Protein Albumin Globulin Albumin/Globulin Ratio 09/21/18 16:27 WBC RBC Hgb Hct MCV MCH MCHC RDW Plt Count MPV Sodium Potassium Chloride Carbon Dioxide Anion Gap BUN Creatinine Est GFR ( Amer) Est GFR (Non-Af Amer) POC Glucose (mg/dL) 247 H Random Glucose Uric Acid Calcium Total Bilirubin AST ALT Alkaline Phosphatase Total Protein Albumin Globulin Albumin/Globulin Ratio Assessment & Plan - Assessment and Plan (Free Text) Assessment: Infectious diseases Attending Physician Attestation Patient seen and examined, discussed with medical sales. I have reviewed the patient's history of present illness, past medical, social, personal and family histories, pertinent physical exam findings, course so far in this hospital admission, pertinent laboratory and imaging results. I agree with the above findings, assessment and plan. In addition, continue IV and PO Bactrim for probable bilateral PJP.
--- NOTE | 2018-09-21 13:11 | CON ---
DATE: 09/21/2018 PULMONARY CONSULT NOTE REFERRING PHYSICIAN: Gerard Gibson MD REASON FOR CONSULTATION: Shortness of breath, lung cancer, pneumonia and sleep apnea. HISTORY OF PRESENT ILLNESS: This is a 68-year-old female with past medical history significant for unresectable non-small cell lung cancer stage III, COPD, CHF, atherosclerotic cardiovascular disease, history of colon cancer with resection, myocardial infraction, history of atrial fibrillation, anemia, who was recently underwent venous port placement. This patient is to start chemotherapy, status post radiation. The patient reports still having some shortness of breath on exertion. Reports dizziness, no unchanging positions. PAST MEDICAL HISTORY: As per history of present illness. FAMILY HISTORY: No significant cardiopulmonary disease reported. SOCIAL HISTORY: Former smoker. Denies alcohol use or illicit drug use. ALLERGIES: NO KNOWN ALLERGIES. MEDICATIONS: Reviewed. Tylenol 650 mg every 4 hours p.r.n. for mild pain, Mucomyst 3 mL inhalation twice a day, DuoNeb 3 mL inhalation every 4 hours, Brovana 15 mcg every 12 hours, aspirin 81 mg daily, Lipitor 40 mg daily, Pulmicort 0.5 mg every 12 hours, Lovenox 40 mg subcutaneously daily, ferrous sulfate 324 mg twice a day, Florinef 0.1 mg daily, Levemir 30 units subcutaneously at bedtime, Humalog sliding scale a.c. and at bedtime, Synthroid 100 mcg daily, Solu-Medrol 40 mg daily, Zyprexa 25 mg twice a day, midodrine 5 mg three times a day, Zofran 4 mg every 6 hours p.r.n., Percocet 5/325 mg every 4 hours p.r.n., Protonix 40 mg daily and Bactrim 240 mg daily. LABORATORY DATA: Reviewed. WBC 7.6, RBC 3.41, hemoglobin 8.5, hematocrit 27.8, and platelets 316. Sodium 132, potassium 4.0, chloride 96, carbon dioxide 36, anion gap 4, BUN 35, creatinine 0.8, GFR is greater than 60, POC glucose 192, random glucose 92, calcium 8.1, total bilirubin 0.4, AST 45, ALT 97, alkaline phosphatase 135, total protein 4.6, albumin 2.2, globulin 2.4, albumin and globulin ratio 0.9. IMPRESSION AND PLAN: Lung cancer non-small cell, chronic obstructive lung disease, gastroesophageal reflux disease, hyperthyroidism, obesity, anemia, sleep apnea syndrome, orthostatic hypertension. Continue antibiotic therapy per Infectious Disease. Continue inhaled bronchodilators. Continue abdominal binder and Sky wrap to bilateral lower extremity for orthostatic hypertension, orthostatic hypertension precautions, fall precautions. Continue inhaled bronchodilators, sleep apnea precaution, head of bed elevated 45 degrees. Continue CPAP use at bedtime. Continue diuretics. This patient was seen and examined with Dr. Feliz. Discussed assessment and plan as described above. This patient was seen and examined with Juan Richardson, nurse practitioner. Discussed assessment and plan as described above. Thank you for this consult. We will follow with you. Juan Richardson APN Hussein Feliz MD
--- NOTE | 2018-09-21 13:29 | CP.PCM.HP ---
<Dejuan Garvey - Last Filed: 09/21/18 13:26> History of Present Illness - History of Present Illness History of Present Illness: PGY-2 H&P for Dr Adames Mrs White is a 68 year old female with a PMHx of unresectable stage III NSCLC with an ALK mutation, COPD, CHF, ASCVD, hx of colon cancer with resection stage 2, IA, AFib (now resolved), anemia of chronic disease, low vitamin D, obesity who present for shortness of breath and dry cough for 1 day. She was recently admitted for a very similiar presentation which she recovered from and was sent to TCU from which she went home. She has completed radiation therapy about 1 week ago. She recently stopped her lasix and prednisone as well as her metoprolol tartrate which was stopped due to lightheadedness (this was started for episodes of SVT which have no resolved). She states her legs are now less swollen. Her shortness of breath resolved while she was on the acute care side, she was then transferred to TCU however she began to experience lightheadedness upon standing. Thus she was brought back to the acute care side and re-admitted from TCU so this lightheadedness can be further investigated. 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, COPD, CHF, ASCVD, hx of colon cancer with resection stage 2, IA, AFib (now resolved), anemia of chronic disease, low vitamin D, obesity PSHx: colon resection, surgery for detached retina, port for chemo placed 09/20/18 Allergies: NKA SocialHx: former smoker FamHx: both parents from age-related illness Present on Admission - Present on Admission Any Indicators Present on Admission: No Review of Systems - Review of Systems All systems: reviewed and no additional remarkable complaints except (as stated in HPI) Past Patient History - Infectious Disease Hx of Infectious Diseases: None - Past Social History Smoking Status: Former Smoker - CARDIAC Hx Cardiac Disorders: Yes (STEMI) Hx Pacemaker: No - PULMONARY Hx Respiratory Disorders: Yes (USED TO SMOKE 1.5 CIGARETTES A DAY. QUIT) Hx Chronic Obstructive Pulmonary Disease (COPD): Yes Hx Pneumonia: Yes Other/Comment: PLEURAL EFFUSION - NEUROLOGICAL Hx Neurological Disorder: No - HEENT Hx HEENT Problems: Yes (Glasses) Hx Cataracts: Yes Other/Comment: detached retina left eye - RENAL Hx Chronic Kidney Disease: No - ENDOCRINE/METABOLIC Hx Endocrine Disorders: Yes Hx Hypothyroidism: Yes - HEMATOLOGICAL/ONCOLOGICAL Hx Blood Disorders: Yes (blood transfusion) Hx Anemia: Yes (iron deficiency) Hx Cancer: Yes (Lung, colon) Other/Comment: 09/2017 pt had a colon resection no chemo, r lung non small cell stage III ca takes chemo pill started radiation in 08/01, has completed 12 treatments tuesday through tuesday, needs 36 total radiation treatments - INTEGUMENTARY Hx Dermatological Problems: Yes Other/Comment: multiple moles around neck chest, b/l arms multiple skin tears and this dry skin,multiple bruises bruising to abd from "heparin" injections last admission, lle 1.2cm x 0.6cm open wound yellow surrounded by red skin, pt hit a chair about 2 months ago, redness to b/l groin on and off, slight redness ble - MUSCULOSKELETAL/RHEUMATOLOGICAL Hx Musculoskeletal Disorders: Yes (SCIATICA) Hx Falls: Yes - GASTROINTESTINAL Hx Gastrointestinal Disorders: Yes (COLON CA H/O COLON RESECTION) - GENITOURINARY/GYNECOLOGICAL Hx Genitourinary Disorders: No - PSYCHIATRIC Hx Emotional Abuse: No Hx Physical Abuse: No Hx Substance Use: No - SURGICAL HISTORY Hx Surgeries: Yes (PORT TO RCW 2-19,LUNG BX,COLON RESECTION) - ANESTHESIA Hx Anesthesia Reactions: No Hx Malignant Hyperthermia: No Meds Allergies/Adverse Reactions: Allergies Allergy/AdvReac Type Severity Reaction Status Date / Time No Known Allergies Allergy Verified 09/20/18 22:36 Physical Exam - Additional Findings Additional findings: - Head Exam Head Exam: NORMAL INSPECTION - Additional Findings Additional findings: - Head Exam Head Exam: NORMAL INSPECTION - Additional Findings Additional findings: - Constitutional Appears: Well, Non-toxic, No Acute Distress - Head Exam Head Exam: ATRAUMATIC, NORMAL INSPECTION - Eye Exam Eye Exam: EOMI, Normal appearance, PERRL. absent: Scleral icterus - ENT Exam ENT Exam: Mucous Membranes Moist - Respiratory Exam Respiratory Exam: Wheezes, NORMAL BREATHING PATTERN - Cardiovascular Exam Cardiovascular Exam: Tachycardia, REGULAR RHYTHM, +S1, +S2. absent: JVD - GI/Abdominal Exam GI & Abdominal Exam: Normal Bowel Sounds, Soft. absent: Tenderness - Extremities Exam Extremities exam: Positive for: normal capillary refill, pedal edema, pedal pulses present - Neurological Exam Neurological exam: Alert, Oriented x3 - Psychiatric Exam Psychiatric exam: Normal Affect - Skin Skin Exam: Dry, Normal Color, Warm Results - Vital Signs Recent Vital Signs: Last Vital Signs Temp 97.7 F 09/21/18 08:15 Pulse 77 09/21/18 08:15 Resp 18 09/21/18 08:15 BP 123/68 09/21/18 08:15 Pulse Ox 97 09/21/18 08:15 - Labs Result Diagrams: 09/21/18 06:20 09/21/18 06:20 Labs: Laboratory Results - last 24 hr 09/20/18 09/21/18 09/21/18 21:58 06:20 06:20 WBC 10.6 RBC 3.41 L Hgb 8.5 L Hct 27.8 L MCV 81.5 MCH 24.9 L MCHC 30.6 L RDW 25.1 H Plt Count 316 MPV 10.2 Sodium 132 Potassium 4.0 Chloride 96 L Carbon Dioxide 36 H Anion Gap 4 L BUN 25 H Creatinine 0.8 Est GFR ( Amer) > 60 Est GFR (Non-Af Amer) > 60 POC Glucose (mg/dL) 205 H Random Glucose 92 Calcium 8.1 L Total Bilirubin 0.4 AST 45 H ALT 97 H Alkaline Phosphatase 135 H Total Protein 4.6 L Albumin 2.2 L Globulin 2.4 Albumin/Globulin Ratio 0.9 L 09/21/18 09/21/18 07:29 11:38 WBC RBC Hgb Hct MCV MCH MCHC RDW Plt Count MPV Sodium Potassium Chloride Carbon Dioxide Anion Gap BUN Creatinine Est GFR ( Amer) Est GFR (Non-Af Amer) POC Glucose (mg/dL) 192 H 164 H Random Glucose Calcium Total Bilirubin AST ALT Alkaline Phosphatase Total Protein Albumin Globulin Albumin/Globulin Ratio Assessment & Plan - Assessment and Plan (Free Text) Plan: Mrs White is a 68 year old female with a PMHx of unresectable stage III NSCLC with an ALK mutation, COPD, CHF, ASCVD, hx of colon cancer with resection stage 2, IA, AFib (now resolved), anemia of chronic disease, low vitamin D, obesity who present for shortness of breath and dry cough: #Right Upper Lobe Infiltrate 2/2 Radiation Induced or Superimposed HCAP -empiric abx coverage wth cefepime 2g ivp q8h (started 09/05 and now discontinued), blood cx negative up to date, procalc negative, now on sulfamethoxazole/trimethoprim 240mg ivpb q8h (started 09/09) - we'll need to monitor her kidney function and now on aztreonam 1g ivpb q12h (started 09/13 and now discontinued), on bactrim 2 tabs po bid * f/u adenovirus pcr, aspergillus testing, cmv pcr, cryptococcus ag, ebg ab, fungitell (1-3) b-d glucan, parainfluenza virus, rsv ag * b-d glucan came back positive * ABG checked 09/19/18 for oxygenation status with consideration for antibiotic switch from bactrim to mepron -to treat her shortness of breath as well as LE edema we'll give her brovana 15mcg ih q12h, budesonide 0.25mg ih q12h, duoneb q4h prn, acetylcysteine 3ml ih bid, lasix 40mg ivp qd (now discontinued), solumedrol 40mg ivp q24h, aldactone 25mg po bid (now discontinued), potassium 20meq po bid, metolazone 5mg po qd for 3 days (started 09/11 now discontinued) * it appears everytime she has her lasix discontinued or reduced she has a re- accumulation of fluid * patient experiencing increasing dizziness - Dr Perea held her diuretics including lasix, and spironolactone - she is currently not on any diurectics due to her lightheadedness -on NC 5L O2 -insulin levemir 30u schs and lispro 10u sc ac #unresectable stage IIIb non-small cell carcinoma of the lung, s/p radiation -completed radiation with Dr Sarah Sinha on 09/12/18 to open up the passage of the right mainstem; still waiting for results from [employer] assay for next generation sequencing from Dr Hobbs's office; on crizotinib (xalkori) 250mg po bid (currently on hold to see if this med is contributing to her lightheadedness) -chest CT w/o contrast 09/08: There is a diffuse alveolar infiltrate in both upper lobes and the right lower lobe. There is a patchy infiltrate in the left lower lobe. Findings are most consistent with pneumonia. There is a 2 x 3.4 cm mass in the right lower lobe adjacent to the inferior hilum. Mediastinal ad enopathy * Dr Sarah Sinha believes lung parenchyma show a pattern that looks similar to ILD versus lymphangitic carcinomatosis and that Pathology would be the only way to discern and rule out causes. #Decompensated CHF, Predominantly right-sided, acute on chronic combined systolic and diastolic -head of bed at 30 degrees, daily weights -to treat her shortness of breath as well as LE edema we'll give her brovana 15mcg ih q12h, budesonide 0.25mg ih q12h, duoneb q4h prn, acetylcysteine 3ml ih bid, lasix 40mg ivp qd (now discontinued), solumedrol 40mg ivp q24h, aldactone 25mg po bid (now discontinued), potassium 20meq po bid, metolazone 5mg po qd for 3 days (started 09/11 now discontinued) * it appears everytime she has her lasix discontinued or reduced she has a re-accumulation of fluid * 09/13: patient experiencing increasing dizziness - Dr Perea held her diuretics including lasix, and spironolactone - plan is to hold for the next 2 days - currently she is only on metolazone 5mg po qd -1.5L water restriction and 2g sodium restriction daily -compression stockings, abdominal binder #Hyponatremia -tolvaptan 15mg po given on 09/14 and 30mg po given on 09/18/18 to treat hyponatremia #Iron Deficiency Anemia -iron 17, tibc 222, %sat 8, ferritin level 154, b12 normal and folate normal, she is on feosol 324mg po bid #sleep apnea syndrome -cpap while sleeping #morbid obesity #Hx of NSTEMI -continue home meds lipitor 40mg po qd, synthroid 125mcg po qd (on hold), metoprolol tartrate 25mg po bid, pregabalin 25mg po bid (on hold), aspirin 81mg po qd, crizotinib 250mg po bid (to treat her lung cancer) #Lightheadedness -treating her lightheadedness by holding all diuretics and starting florinef 0.1mg po qd with frequent BP checks and high risk fall protocol #PPX -ppx with lovenox 40mg sc qd and protonix 40mg po qd -pulmonary consult, Dr Feliz and cardio consult, Dr Perea, ID Dr Rooney, and Nephrology consult Dr Jang for fluid management, and neurology consult Dr Mack Smyth for dizziness <Gabby Adames P - Last Filed: 09/26/18 16:19> Results - Vital Signs Recent Vital Signs: Last Vital Signs Temp 97.6 F 09/26/18 08:20 Pulse 105 H 09/26/18 10:00 Resp 20 09/26/18 08:20 BP 140/82 09/26/18 08:20 Pulse Ox 97 09/26/18 08:20 - Labs Result Diagrams: 09/26/18 05:45 09/26/18 05:45 Labs: Laboratory Results - last 24 hr 09/25/18 09/25/18 09/26/18 21:29 23:53 05:45 WBC 7.3 RBC 3.79 Hgb 9.7 L Hct 32.0 L MCV 84.4 MCH 25.6 MCHC 30.3 L RDW 23.6 H Plt Count 229 MPV 9.5 Neut % (Auto) 87.9 H Lymph % (Auto) 5.5 L Sharkey % (Auto) 5.7 Eos % (Auto) 0.6 L Baso % (Auto) 0.3 Lymph # (Auto) 0.4 L Sharkey # (Auto) 0.4 Eos # (Auto) 0.0 Baso # (Auto) 0.02 Absolute Neuts (auto) 6.38 Sodium Potassium Chloride Carbon Dioxide Anion Gap BUN Creatinine Est GFR ( Amer) Est GFR (Non-Af Amer) POC Glucose (mg/dL) 230 H 175 H Random Glucose Calcium Total Bilirubin AST ALT Alkaline Phosphatase Total Protein Albumin Globulin Albumin/Globulin Ratio 09/26/18 09/26/18 09/26/18 05:45 07:59 11:28 WBC RBC Hgb Hct MCV MCH MCHC RDW Plt Count MPV Neut % (Auto) Lymph % (Auto) Sharkey % (Auto) Eos % (Auto) Baso % (Auto) Lymph # (Auto) Sharkey # (Auto) Eos # (Auto) Baso # (Auto) Absolute Neuts (auto) Sodium 132 Potassium 4.1 Chloride 101 Carbon Dioxide 30 Anion Gap 6 L BUN 15 Creatinine 0.7 Est GFR ( Amer) > 60 Est GFR (Non-Af Amer) > 60 POC Glucose (mg/dL) 108 187 H Random Glucose 65 L Calcium 8.0 L Total Bilirubin 0.3 AST 33 ALT 95 H Alkaline Phosphatase 139 H Total Protein 4.9 L Albumin 2.3 L Globulin 2.6 Albumin/Globulin Ratio 0.9 L Attending/Attestation - Attestation I have personally seen and examined this patient.: Yes I have fully participated in the care of the patient.: Yes I have reviewed all pertinent clinical information: Yes
[2018-09-21] MEDS: Tmp-Smz 800 mg-160 mg DS Tab PO SCH ×2 (14:18→22:16)
--- NOTE | 2018-09-21 14:42 | CON ---
DATE OF CONSULTATION: 09/21/2018 REASON FOR CONSULTATION: Severe anemia, hyponatremia, orthostatic hypotension. HISTORY OF PRESENTING ILLNESS: A 68-year-old lady known to me from recent evaluation on the medical side and then on the Transitional Care Unit. The patient is extremely dizzy when she stands up. She is unable to walk. Her blood pressure this morning was 123/68 sitting down and then she stood up it dropped to 86/60. The patient was extremely dizzy. She had to sit down again. Consultation is requested for hyponatremia, orthostatic hypotension. PAST MEDICAL AND SURGICAL HISTORY: Unresectable stage III non-small cell CA of the lung, COPD, CHF, CAD, history of colon cancer status post resection, atrial fibrillation, anemia. FAMILY HISTORY: Noncontributory. SOCIAL HISTORY: Ex-smoker, no IV drug abuse. ALLERGIES: NO KNOWN DRUG ALLERGIES. MEDICATIONS: Mucomyst 2 mL b.i.d., aspirin 81, Bactrim 2 tablets b.i.d., Brovana, DuoNeb, Feosol 324 b.i.d., Florinef 0.1, Levemir, Lipitor 40, Lopressor 25 b.i.d. on hold, Lovenox 40, Percocet, ProAmatine 5 t.i.d., Protonix, Pulmicort, Solu-Medrol 40 mg IV daily, Synthroid 100, Bactrim IV piggyback x1 dose daily, Zofran. REVIEW OF SYSTEMS: All systems are reviewed, pertinent positives as mentioned in history of presenting illness, rest unremarkable. PHYSICAL EXAMINATION: GENERAL: Morbidly obese, elderly lady, sitting in chair. VITAL SIGNS: Blood pressure 112/66, heart rate 77, respiratory rate 18, temperature 97.7. HEENT: Normocephalic, atraumatic, positive pallor. NECK: Supple, no JVD. LUNGS: Bilateral equal entry, bilateral equal expansion, no rales. CARDIAC: S1 and S2, regular rate and rhythm, no murmur, no rub. ABDOMEN: Obese, distended, soft, nontender, bowel sounds present. EXTREMITIES: 2+ pitting edema of the lower extremities. INTAKE AND OUTPUT: Not charted. LABORATORY DATA: WBC 10.6, hemoglobin 8.5, hematocrit 27.8, platelets 316,000. Sodium 132, potassium 4, chloride 96, CO2 of 36, BUN 25, creatinine 0.8, glucose 92, calcium 8.1, AST 45, ALT 97, albumin 2.2, corrected calcium is 9.1. Cortisol level from 09/19/2018 is 44. ASSESSMENT: 1. Profound symptomatic orthostatic hypotension. 2. Hypothyroidism. 3. Hyponatremia. 4. Stage III, nonresectable non-small cell cancer of the lung. 5. Status post bilateral pneumonia. 6. Edema. 7. Chronic obstructive pulmonary disease. 8. Coronary artery disease. PLAN: 1. Increase Florinef to 0.1 b.i.d. 2. Increase ProAmatine to 10 t.i.d. 3. Check urine sodium, urine osmolality, serum uric acid. 4. Complete antibiotics for presumed PCP pneumonia. Monitor blood pressure in three positions. Thank you for the courtesy of this consultation. We will follow this patient closely with you. Tamiko Jang MD
[2018-09-21] MEDS: Insulin Lispro 1 UNITS/0.01 ML SC SCH (17:27)
[2018-09-21] MEDS: Insulin Lispro (humaLOG) LOW Coverage SC SCH ×2 (17:28→22:16)
[2018-09-21] MEDS ORDERED: Insulin Detemir 100 units/ml Vial (Levemir) SC SCH (22:00)
--- NOTE | 2018-09-21 22:28 | PN ---
DATE: 09/21/2018 ENDOCRINOLOGY FOLLOWUP NOTE LOCATION: Transferred to room 362, [address]. SUBJECTIVE: This is a 68-year-old female with recent acute exacerbation of COPD, currently on a tapering dose of IV steroid therapy with concomitant pneumonitis and is now being followed closely also for metabolic management. Her glycemic levels are fluctuating and the glucose levels have ranged from 164 to 172 and 205 mg/dL. LABORATORY DATA: Her chemistry shows a BUN of 25, sodium 132, potassium 4, chloride 96, CO2 of 36, glucose 92, and creatinine 0.8. ASSESSMENT AND PLAN: So at this time, we will modify once again her basal and bolus insulin regimen and change her Levemir to 14 units subcu at bedtime daily to start tonight. We will also add Humalog given as 4 units t.i.d. before meals as ordered. We will titrate incrementally as indicated to optimize metabolic control. We will follow. Crystal Mcgregor MD
[2018-09-21] MEDS: Insulin Detemir 100 units/ml Vial (Levemir) SC SCH (22:40)
[2018-09-22] MEDS: Albuterol-Ipratrop 3 mg / 0.5 (3 ml) UD IH SCH ×6 (04:20→23:35)
[2018-09-22] MEDS ORDERED: Levothyroxine 100 MCG TAB PO SCH (06:00)
[2018-09-22] MEDS: SULFAMETHOXAZOLE IVPB SCH (06:12)
[2018-09-22] MEDS: DEXTROSE 5% IVPB SCH (06:12)
[2018-09-22] MEDS: TRIMETHOPRIM IVPB SCH (06:12)
[2018-09-22] MEDS: WATER IVPB SCH (06:12)
[2018-09-22 06:55] LABS: ALB/GLOB RATIO 0.8 (1.1-1.8)
[2018-09-22 06:56] LABS: BASO # 0.04 K/mm3 (0.0-2.0); BASO % 0.5 % (0.0-3.0); EOS % 0.1 % (1.5-5.0); HEMOGLOBIN 8.2 g/dL (12.0-16.0); LYMPH # 0.2 (1.2-3.4); LYMPH % 2.8 % (22.0-35.0); MEAN CELL VOLUME 81.4 fl (80.0-105.0); MEAN CORPUSCULAR HEMOGLOBIN 24.3 pg (25.0-35.0); MEAN CORPUSCULAR HGB CONC 29.8 g/dl (31.0-37.0); MEAN PLATELET VOLUME 10.2 fl (7.0-11.0); MONO # 0.8 (0.1-0.6); MONO % 9.6 % (1.0-6.0); PLATELET COUNT 272 10^3/uL (120.0-450.0); RBC 3.38 10^6/uL (3.5-6.1); RED CELL DISTRIBUTION WIDTH 25.3 % (11.5-14.5)
[2018-09-22 07:04] LABS: ALBUMIN 2.1 g/dL (3.0-4.8); ALT/SGPT 94 U/L (7-56); AST/SGOT 46 U/L (14-36); BLOOD UREA NITROGEN 23 mg/dL (7-21); CALCIUM 7.6 mg/dL (8.4-10.5); GFR NON-AFRICAN AMERICAN > 60
[2018-09-22 07:10] LABS: FREE T4 0.35 ng/dL (0.78-2.19); T4 1.7 ug/dL (5.5-11.0)
[2018-09-22 07:18] LABS: OSMOLALITY,URINE 687 mosm/kg (300-1000)
[2018-09-22] MEDS: Acetylcysteine 20% Inhal Soln (4ml) IH SCH ×3 (07:35→19:17)
[2018-09-22] MEDS: Arformoterol 15 mcg/2 ml Inh Sol IH SCH ×2 (07:36→19:18)
[2018-09-22] MEDS: Budesonide 0.25 mg/2 ml Inhal Susp UD IH SCH ×2 (07:36→19:18)
[2018-09-22] MEDS: Insulin Lispro (humaLOG) LOW Coverage SC SCH ×4 (08:05→21:39)
[2018-09-22] MEDS: Insulin Lispro 1 UNITS/0.01 ML SC SCH ×3 (08:05→17:42)
[2018-09-22 08:25] LABS: BAND 3 % (0-2); MONOCYTE 6 % (1.0-6.0); NEUTROPHIL 91 % (50.0-70.0); NUCLEATED RED BLOOD CELL 2 %
[2018-09-22 08:26] LABS: PLATELET ESTIMATE NORMAL (NORMAL)
[2018-09-22] MEDS: Enoxaparin 40 mg Syringe SC SCH (09:52)
[2018-09-22] MEDS: Pantoprazole 40 mg EC Tab PO SCH (09:53)
--- NOTE | 2018-09-22 12:44 | PN ---
DATE: 09/22/2018 PULMONARY PROGRESS NOTE REFERRING PHYSICIAN: Gerard Gibson MD. SUBJECTIVE: The patient is sitting at bedside. No acute distress. Reports using CPAP machine last night. Reports having productive cough on occasion. No shortness of breath at this time. Reports still feeling dizziness when changing position. No headache, rhinitis, chest pain, abdominal pain, nausea, vomiting, diarrhea, leg pain or leg swelling reported. OBJECTIVE: GENERAL: No acute distress. VITAL SIGNS: Blood pressure 107/70, pulse 99, temperature 98.9, oxygen saturation 93%. HEENT: Moist mucous membranes. Crowded airways. Mallampati score of 4. NECK: Supple. No JVD. LUNGS: Rhonchi bilaterally. CARDIOVASCULAR: S1, S2. ABDOMEN: Soft, nontender. No distention. No organomegaly. EXTREMITIES: JOESPH wrap to bilateral lower extremities. NEUROLOGIC: Awake, alert, verbal. Follows commands. MEDICATIONS: Reviewed. Tylenol 650 every 4 hours p.r.n. mild pain, Mucomyst 2 mL inhalation twice a day, DuoNeb 3 mL inhalation every 4 hours, Brovana 15 mcg every 12 hours, aspirin 81 mg daily, Lipitor 40 mg daily, Pulmicort 0.25 mg every 12 hours, Lovenox 40 mg subcu daily, ferrous sulfate 324 mg twice a day, Florinef 0.1 mg twice a day, Levemir 14 units subcu at bedtime, Humalog sliding scale morning and at bedtime, Humalog 4 units subcu a.c., Synthroid 100 mcg daily, Solu-Medrol 40 mg IV push daily, metoprolol tartrate 25 mg twice a day, midodrine 10 mg three times a day, Zofran 4 mg IV push every 6 hours p.r.n., Percocet 5/325 mg every 4 hours p.r.n., Protonix 40 mg daily, Bactrim DS tablets 2 tabs twice a day. LABORATORY DATA: Reviewed. WBC 8, RBC 3.38, hemoglobin 8.2, hematocrit 27.5, platelets 272. Sodium 128, potassium 3.8, chloride 96, carbon dioxide 29, anion gap 8, BUN 23, creatinine 0.8, GFR is greater than 60, POC glucose 114, random glucose 77, calcium 7.6, total bilirubin 0.5, AST 46, ALT 94, alkaline phosphatase 132, total protein 4.5, albumin 2.1, globulin 2.5 and albumin-globulin ratio 0.8. Free T4 0.35, thyroxine 1.7, TSH 0.02. Urine osmolality 687, urine random sodium 52. IMPRESSION AND PLAN: Lung cancer, chronic obstructive lung disease, gastroesophageal reflux disease, hypothyroidism, sleep apnea syndrome, obesity, pulmonary hypertension, anemia, cardiac diastolic dysfunction, activities of daily living dysfunction, orthostatic hypotension, hyponatremia. The patient is status post port placement. Pulmonary point of view; continue inhaled bronchodilators, orthostatic hypotension precaution, continue abdominal binder, continue JOESPH wrap to bilateral lower extremities. Continue continuous positive airway pressure use at bedtime, sleep apnea precaution, head of bed elevated at 45 degrees, gastric prophylaxis, fall precautions. Continue diuretics, we will start the patient is on sodium chloride tablets twice a day. Labs in the morning. This patient was seen and examined with Dr. Feliz. Discussed assessment and plan as described above. This patient was seen and examined with Juan Richardson, nurse practitioner. Discussed assessment and plan as described above. Thank you for this consult. We will follow with you. Juan Richardson APN Hussein Feliz MD
--- NOTE | 2018-09-22 13:19 | CP.PCM.PN ---
<Jaime Valero - Last Filed: 09/22/18 13:19> Subjective - Date & Time of Evaluation Date of Evaluation: 09/22/18 Time of Evaluation: 07:00 - Subjective Subjective: Infectious disease progress note: Patient seen and examined at bedside, no acute events overnight. States that her cough and sob has much improved. No complaints. 12 point ROS performed and negative other than stated above. Objective - Vital Signs/Intake and Output Vital Signs (last 24 hours): Temp Pulse Resp BP Pulse Ox 98.9 F 99 H 20 81/49 L 99 09/22/18 06:00 09/22/18 06:00 09/22/18 06:00 09/22/18 10:30 09/22/18 10:30 Intake and Output: 09/22/18 09/22/18 06:59 18:59 Intake Total 800 Balance 800 - Medications Medications: Current Medications Acetaminophen (Tylenol 325mg Tab) 650 mg PO Q4 PRN PRN Reason: Pain, Mild (1-3) Acetylcysteine (Acetylcysteine 20%) 2 ml IH BID [facility] Last Admin: 09/22/18 11:12 Dose: Not Given Albuterol/Ipratropium (Duoneb 3 Mg/0.5 Mg (3 Ml) Ud) 3 ml IH [id number] [facility] Last Admin: 09/22/18 11:12 Dose: 3 ml Arformoterol Tartrate (Brovana) 15 mcg IH [id number] [facility] Last Admin: 09/22/18 07:36 Dose: 15 mcg Aspirin (Aspirin Chewable) 81 mg PO DAILY [facility] Last Admin: 09/22/18 09:52 Dose: 81 mg Atorvastatin Calcium (Lipitor) 40 mg PO DIN [facility] Budesonide (Pulmicort Respules) 0.25 mg IH [id number] [facility] Last Admin: 09/22/18 07:36 Dose: 0.25 mg Dextrose (Dextrose 50% Inj) 0 ml IV STAT PRN; Protocol PRN Reason: Hypoglycemia Protocol Enoxaparin Sodium (Lovenox) 40 mg SC DAILY [facility]; Protocol Last Admin: 09/22/18 09:52 Dose: 40 mg Ferrous Sulfate (Feosol) 324 mg PO BID [facility] Last Admin: 09/22/18 09:53 Dose: 324 mg Fludrocortisone Acetate (Florinef) 0.1 mg PO BID [facility] Last Admin: 09/22/18 09:53 Dose: 0.1 mg Trimethoprim/Sulfamethoxazole (240 mg/ Dextrose) 500 mls @ 166.667 mls/hr IVPB 0600 [facility]; Protocol Last Admin: 09/22/18 06:12 Dose: 166.667 mls/hr Dextrose (Dextrose 5% In Water 1000 Ml) 1,000 mls @ 0 mls/hr IV .Q0M PRN; Protocol PRN Reason: Hypoglycemia Protocol Insulin Detemir (Levemir) 14 unit SC HS [facility] Last Admin: 09/21/18 22:40 Dose: Not Given Insulin Human Lispro (Humalog Low) 0 units SC ACHS [facility]; Protocol Last Admin: 09/22/18 13:10 Dose: Not Given Insulin Human Lispro (Humalog) 4 units SC AC [facility] Last Admin: 09/22/18 08:05 Dose: Not Given Levothyroxine Sodium (Synthroid) 100 mcg PO 0600 [facility] Last Admin: 09/22/18 06:12 Dose: 100 mcg Methylprednisolone (Solu-Medrol) 40 mg IVP DAILY Stop: 10/05/18 23:59 Metoprolol Tartrate (Lopressor) 25 mg PO BID [facility] Midodrine (Proamatine) 10 mg PO TID [facility] Last Admin: 09/22/18 09:52 Dose: 10 mg Ondansetron HCl (Zofran Inj) 4 mg IVP Q6H PRN PRN Reason: Nausea/Vomiting Oxycodone/Acetaminophen (Percocet 5/325 Mg Tab) 1 tab PO Q4H PRN PRN Reason: Pain, moderate (4-7) Stop: 09/23/18 18:00 Pantoprazole Sodium (Protonix Ec Tab) 40 mg PO DAILY [facility] Last Admin: 09/22/18 09:53 Dose: 40 mg Sodium Chloride (Sodium Chloride Tab) 1 gm PO BID [facility] Trimethoprim/Sulfamethoxazole (Bactrim Ds Tab) 2 tab PO 1400,2200 [facility]; Protocol Last Admin: 09/21/18 22:16 Dose: 2 tab - Labs Labs: 09/22/18 06:30 09/22/18 06:30 - Constitutional Appears: No Acute Distress - Head Exam Head Exam: ATRAUMATIC, NORMOCEPHALIC - Eye Exam Eye Exam: EOMI - ENT Exam ENT Exam: Mucous Membranes Moist - Respiratory Exam Respiratory Exam: Clear to Ausculation Bilateral. absent: Rales, Wheezes - Cardiovascular Exam Cardiovascular Exam: REGULAR RHYTHM, +S1, +S2 - GI/Abdominal Exam GI & Abdominal Exam: Soft. absent: Tenderness - Extremities Exam Extremities Exam: absent: Calf Tenderness, Pedal Edema - Neurological Exam Neurological Exam: Alert, Awake - Psychiatric Exam Psychiatric exam: Normal Mood - Skin Skin Exam: Dry, Warm Assessment and Plan - Assessment and Plan (Free Text) Assessment: 68-year-old female with past medical history of lung cancer with non-small cell carcinoma, morbid obesity, hyperlipidemia, colon cancer s/p resection presented initially with shortness of breath found to have bilateral alveolar infiltrates possibly consider atypical pneumonia, beta glucan positive, which may be suggestive of Pneumocystis - No fever, no leukocytosis - Continue Bactrim IV day 11 for 14-21 days but on discussion with Dr. Jang, she is fluid-restricted - will keep the morning dose of Bactrim IV, then the 2pm dose and 10 pm doses Bactrim DS PO - will follow up ABG to see if her oxygenation is better and if it is, we can switch to Mepron - F/u hem/onc recs - Cont to monitor for any changes Case and plan was reviewed and discussed with Dr Perdomo. <Chaim Perdomo - Last Filed: 09/22/18 16:24> Objective - Vital Signs/Intake and Output Vital Signs (last 24 hours): Temp Pulse Resp BP Pulse Ox 98.9 F 99 H 20 81/49 L 99 09/22/18 06:00 09/22/18 06:00 09/22/18 06:00 09/22/18 10:30 09/22/18 10:30 Intake and Output: 09/22/18 09/22/18 06:59 18:59 Intake Total 800 Balance 800 - Medications Medications: Current Medications Acetaminophen (Tylenol 325mg Tab) 650 mg PO Q4 PRN PRN Reason: Pain, Mild (1-3) Acetylcysteine (Acetylcysteine 20%) 2 ml IH BID [facility] Last Admin: 09/22/18 11:12 Dose: Not Given Albuterol/Ipratropium (Duoneb 3 Mg/0.5 Mg (3 Ml) Ud) 3 ml IH [id number] [facility] Last Admin: 09/22/18 15:19 Dose: 3 ml Arformoterol Tartrate (Brovana) 15 mcg IH [id number] [facility] Last Admin: 09/22/18 07:36 Dose: 15 mcg Aspirin (Aspirin Chewable) 81 mg PO DAILY [facility] Last Admin: 09/22/18 09:52 Dose: 81 mg Atorvastatin Calcium (Lipitor) 40 mg PO DIN [facility] Budesonide (Pulmicort Respules) 0.25 mg IH [id number] [facility] Last Admin: 09/22/18 07:36 Dose: 0.25 mg Dextrose (Dextrose 50% Inj) 0 ml IV STAT PRN; Protocol PRN Reason: Hypoglycemia Protocol Enoxaparin Sodium (Lovenox) 40 mg SC DAILY [facility]; Protocol Last Admin: 09/22/18 09:52 Dose: 40 mg Ferrous Sulfate (Feosol) 324 mg PO BID [facility] Last Admin: 09/22/18 09:53 Dose: 324 mg Fludrocortisone Acetate (Florinef) 0.1 mg PO BID [facility] Last Admin: 09/22/18 09:53 Dose: 0.1 mg Trimethoprim/Sulfamethoxazole (240 mg/ Dextrose) 500 mls @ 166.667 mls/hr IVPB 0600 [facility]; Protocol Last Admin: 09/22/18 06:12 Dose: 166.667 mls/hr Dextrose (Dextrose 5% In Water 1000 Ml) 1,000 mls @ 0 mls/hr IV .Q0M PRN; Protocol PRN Reason: Hypoglycemia Protocol Insulin Detemir (Levemir) 14 unit SC HS [facility] Last Admin: 09/21/18 22:40 Dose: Not Given Insulin Human Lispro (Humalog Low) 0 units SC ACHS [facility]; Protocol Last Admin: 09/22/18 13:10 Dose: Not Given Insulin Human Lispro (Humalog) 4 units SC AC [facility] Last Admin: 09/22/18 13:38 Dose: 4 units Levothyroxine Sodium (Synthroid) 100 mcg PO 0600 [facility] Last Admin: 09/22/18 06:12 Dose: 100 mcg Methylprednisolone (Solu-Medrol) 40 mg IVP DAILY Stop: 10/05/18 23:59 Metoprolol Tartrate (Lopressor) 25 mg PO BID [facility] Midodrine (Proamatine) 10 mg PO TID [facility] Last Admin: 02/08/19 13:38 Dose: 10 mg Ondansetron HCl (Zofran Inj) 4 mg IVP Q6H PRN PRN Reason: Nausea/Vomiting Oxycodone/Acetaminophen (Percocet 5/325 Mg Tab) 1 tab PO Q4H PRN PRN Reason: Pain, moderate (4-7) Stop: 09/23/18 18:00 Pantoprazole Sodium (Protonix Ec Tab) 40 mg PO DAILY [facility] Last Admin: 09/22/18 09:53 Dose: 40 mg Sodium Chloride (Sodium Chloride Tab) 1 gm PO BID [facility] Trimethoprim/Sulfamethoxazole (Bactrim Ds Tab) 2 tab PO 1400,2200 [facility]; Protocol Last Admin: 09/22/18 13:38 Dose: 2 tab - Labs Labs: 09/22/18 06:30 09/22/18 06:30 Assessment and Plan - Assessment and Plan (Free Text) Assessment: Infectious diseases Attending Physician Attestation Patient seen and examined, discussed with medical research assistant. I have reviewed the patient's history of present illness, past medical, social, personal and family histories, pertinent physical exam findings, course so far in this hospital admission, pertinent laboratory and imaging results. I agree with the above findings, assessment and plan. In addition, continue Bactrim for patient with probable PJP. Patient is clinically improving - complete 14-21 days of Bactrim (day 12).
[2018-09-22] MEDS: Tmp-Smz 800 mg-160 mg DS Tab PO SCH ×2 (13:38→21:33)
--- NOTE | 2018-09-22 15:56 | PN ---
DATE: 09/22/2018 This is [facility] visit on the medical floor. For Dr. Adames. SUBJECTIVE: The patient is a 68-year-old female now transferred back from transitional care for readmission to the [facility] with known unresectable stage III non-small cell lung cancer, history of colon cancer, recent AK, history of atrial fibrillation with anemia of chronic disease. Now with worsening shortness of breath reason for readmission moderately improved today. The patient also has had episodes of dizziness, light headedness, with orthostatic hypotension noted, for which she is now being evaluated as above. It should be noted that the patient was on Xalkori chemotherapy medication which was being held and would continued to be held at this time. The patient reports that she feels modestly improved today with family at the bedside. PHYSICAL EXAMINATION VITAL SIGNS: Temperature 98.9, pulse 99, respirations 20, blood pressure 107/70 and pulse ox 93%. HEENT: Unremarkable. NECK: Supple. HEART: Regular rate, occasional ectopic beat. LUNGS: Rare rhonchi. ABDOMEN: Obese, soft, and nontender. EXTREMITIES: +1 edema with feet wrapped with JOESPH wraps. NEUROLOGIC: Awake and alert. SKIN: Warm and dry. LABORATORY DATA: The patient's labs were done. White blood cell count of 8.0, hemoglobin 8.2, hematocrit of 27.5, and platelet count 272,000 with a metabolic panel showing the sodium of 128, chloride of 96, BUN of 23, creatinine of 0.8, non-fasting glucose 256. AST 46, ALT of 94, alkaline phosphatase 132 and total protein 4.5. TSH of 0.02. ASSESSMENT: Orthostatic hypotension with known stage III non-small cell carcinoma of the lung, history of atrial fibrillation, history of myocardial infarction, chronic obstructive pulmonary disease with cough, dizziness, history of colon cancer, obesity, hypothyroidism now corrected with thyroid stimulating hormone value of hyperthyroidism, pedal edema and anemia of chronic disease PLAN: After conversation with Dr. Adames, is to continue present medical regimen. We will hold chloride for the time being with medications to continue as per consultation's recommendation including Dr. Jang Renal and hypertension as the patient on Florinef. We will start midodrine. The thyroid medication is on the hold with iron orally twice a day to continue. Also diabetes as controlled by Dr. Crystal Mcgregor, [employer]. This is a complex patient with a comprehensive medically necessary and appropriate visit carried out in excess of 40 minutes with the patient and her family's questions answered to their satisfaction. Gerard Gibson MD
--- NOTE | 2018-09-22 19:32 | PN ---
DATE: 09/22/2018 SUBJECTIVE: The patient is seen sitting in chair. She is awake, she is alert, she is comfortable. She reports that she still gets dizzy when she stands up, but she reports that she was able to do some physical therapy today. PHYSICAL EXAMINATION: GENERAL: Morbidly obese elderly lady, sitting in chair. VITAL SIGNS: Blood pressure 111/68, heart rate 82, respiratory rate 20, temperature 98. Vital signs in three positions, sitting blood pressure 110/57, standing 104/56. HEENT: Normocephalic, atraumatic, positive pallor. NECK: Supple, no JVD. LUNGS: Bilateral equal entry, bilateral equal expansion, no rales appreciated. CARDIAC: S1 and S2, regular rate and rhythm, no murmur, no rub. ABDOMEN: Obese, distended, soft, nontender, bowel sounds present. EXTREMITIES: 2+ pitting edema of the lower extremities. INTAKE AND OUTPUT: Not charted. LABORATORY DATA: WBC 8, hemoglobin 8.2, hematocrit 27.5, platelets 272. Sodium 128, potassium 3.8, chloride 96, CO2 of 29, BUN 23, creatinine 0.8, glucose 77, calcium 7.6, AST 46, ALT 94, albumin 2.1. TSH of 0.02. CURRENT MEDICATIONS: Aspirin 81 mg, Bactrim, Brovana, Feosol 325 mg, Florinef 0.1 mg b.i.d., Lipitor 40 mg, Lopressor 25 mg b.i.d., Lovenox 40 mg, ProAmatine 10 mg t.i.d., Protonix 40 mg, sodium chloride tablets 1 g b.i.d., Solu-Medrol 40 mg IV daily, Synthroid 50 mcg. ASSESSMENT: 1. Orthostatic hypotension, somewhat improved. 2. Hypotension. 3. Stage 3 unresectable non-small cell carcinoma of the lung. 4. Anemia of chronic disease. 5. 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 6. Coronary artery disease, congestive heart failure, atrial fibrillation. PLAN: 1. Continue ProAmatine 10 mg t.i.d. 2. Continue Florinef 0.1 mg b.i.d. 3. Continue pressure stockings. 4. Physical therapy. Tamiko Jang MD [facility] # [id number]
--- NOTE | 2018-09-22 20:38 | PN ---
DATE: 09/22/2018 ENDOCRINOLOGY FOLLOWUP NOTE LOCATION: In room 366. SUBJECTIVE: This is a 68-year-old female with recent uncontrolled type 2 insulin-requiring diabetes with underlying lung malignancy with recent supervening acute exacerbation of COPD, currently on a tapering IV steroid therapy as given and is now being followed closely for metabolic management. Her glycemic levels are fluctuating, but improved and the glucose levels have ranged from 114-211 and 256 mg/dL. Her chemistry showed a BUN of 23, sodium 128, potassium 3.8, chloride 96, CO2 of 29, glucose 77, and creatinine 0.8. So, at this time, we will continue the modified basal insulin with Levemir given as 14 units subcu at bedtime daily as given. We will continue her Humalog given as 4 units t.i.d. before meals as ordered. Repeat thyroxine level is 1.7 with an albumin of 2.1 and a free T4 of 0.35 and a TSH of 0.02. So, at this time, we will lower once again her levothyroxine therapy to 50 mcg once daily as ordered, but because of the suppressed TSH, we will hold off for 3 days and restart the medications on Tuesday as noted. This allows a full therapeutic washout of the medications system as noted. The half life is at least 3-5 days in the system as noted. We will obtain serial thyroid studies accordingly. We will also obtain serial chemistries and supplement accordingly as needed. We will follow. Crystal Mcgregor MD
--- NOTE | 2018-09-22 21:35 | CON ---
DATE: 09/22/2018 HISTORY OF PRESENT ILLNESS: This is a 68-year-old with past medical history of a lung cancer stage III, COPD, CHF and atherosclerotic heart disease, history of colon cancer with resection, myocardial infarction, history of atrial fibrillation, and anemia. The patient had recently underwent venous port placement, having chemotherapy, and called to evaluate her for dizziness and lightheadedness. PAST MEDICAL HISTORY: As above. ALLERGIES: NO KNOWN DRUG ALLERGY. FAMILY HISTORY: Mother is at bedside. PHYSICAL EXAMINATION HEENT: Normocephalic and atraumatic. NECK: Supple. NEUROLOGIC: Awake, alerted, and orientated x3. No aphasia. Cranial nerves II through XII are tested. Pupils reactive. EOMs intact. Visual field full. No facial asymmetry. Tongue midline. Motor examination, moves all the extremities equally upper more than the lower and the patient has difficulty ambulating. Cerebellar gait deferred. IMPRESSION AND PLAN: Dizziness and lightheaded and the patient is comfortable and continue present management. We will do a CAT scan of the head without contrast. We will follow up after the results. Chad Smyth MD
[2018-09-22] MEDS: Insulin Detemir 100 units/ml Vial (Levemir) SC SCH (21:38)
[2018-09-23] MEDS: Albuterol-Ipratrop 3 mg / 0.5 (3 ml) UD IH SCH ×5 (04:30→19:22)
[2018-09-23] MEDS: WATER IVPB SCH (05:12)
[2018-09-23] MEDS: DEXTROSE 5% IVPB SCH (05:12)
[2018-09-23] MEDS: SULFAMETHOXAZOLE IVPB SCH (05:12)
[2018-09-23] MEDS: TRIMETHOPRIM IVPB SCH (05:12)
[2018-09-23 06:02] LABS: BASO # 0.02 K/mm3 (0.0-2.0); BASO % 0.3 % (0.0-3.0); EOS % 0.4 % (1.5-5.0); HEMOGLOBIN 7.6 g/dL (12.0-16.0); LYMPH # 0.5 (1.2-3.4); LYMPH % 7.5 % (22.0-35.0); MEAN CELL VOLUME 82.2 fl (80.0-105.0); MEAN CORPUSCULAR HEMOGLOBIN 24.6 pg (25.0-35.0); MEAN CORPUSCULAR HGB CONC 29.9 g/dl (31.0-37.0); MEAN PLATELET VOLUME 9.8 fl (7.0-11.0); MONO # 0.6 (0.1-0.6); MONO % 7.7 % (1.0-6.0); RBC 3.09 10^6/uL (3.5-6.1); RED CELL DISTRIBUTION WIDTH 25.1 % (11.5-14.5); WHITE BLOOD COUNT 7.2 10^3/uL (4.5-11.0)
[2018-09-23 06:20] LABS: ALB/GLOB RATIO 0.8 (1.1-1.8); ALBUMIN 1.9 g/dL (3.0-4.8); ALT/SGPT 88 U/L (7-56); AST/SGOT 40 U/L (14-36); BLOOD UREA NITROGEN 15 mg/dL (7-21); CALCIUM 7.5 mg/dL (8.4-10.5); GFR NON-AFRICAN AMERICAN > 60
[2018-09-23 08:28] LABS: HEMOGLOBIN 7.2 g/dL (12.0-16.0); MEAN CORPUSCULAR HEMOGLOBIN 24.5 pg (25.0-35.0); MEAN CORPUSCULAR HGB CONC 29.9 g/dl (31.0-37.0); MEAN PLATELET VOLUME 9.4 fl (7.0-11.0); RBC 2.94 10^6/uL (3.5-6.1); RED CELL DISTRIBUTION WIDTH 25.1 % (11.5-14.5); WHITE BLOOD COUNT 6.8 10^3/uL (4.5-11.0)
[2018-09-23] MEDS: Acetylcysteine 20% Inhal Soln (4ml) IH SCH ×3 (08:32→19:22)
[2018-09-23] MEDS: Arformoterol 15 mcg/2 ml Inh Sol IH SCH ×2 (08:32→19:22)
[2018-09-23] MEDS: Budesonide 0.25 mg/2 ml Inhal Susp UD IH SCH ×2 (08:33→19:23)
[2018-09-23] MEDS: Insulin Lispro 1 UNITS/0.01 ML SC SCH (08:53)
--- NOTE | 2018-09-23 09:23 | PN ---
DATE: 09/23/2018 PULMONARY PROGRESS NOTE REFERRING PHYSICIAN: Gerard Gibson MD SUBJECTIVE: The patient is lying in bed with CPAP in place; asleep, but arousable. Reports feeling well today. Reports only getting dizzy with movements. No headache, rhinitis, cough, shortness of breath, chest pain, abdominal pain, nausea, vomiting, diarrhea, or leg pain reported at this time. OBJECTIVE: GENERAL: No acute distress. VITAL SIGNS: Blood pressure 130/72, pulse 78, temperature 97.6, and oxygen saturation 95%. HEENT: Moist mucous membranes. Crowded airway. Mallampati score of 4. NECK: Supple. No JVD. LUNGS: Rhonchi bilaterally. CARDIOVASCULAR: S1 and S2. ABDOMEN: Soft and nontender. No distention. No organomegaly. EXTREMITIES: Bilateral lower extremity edema present, but improving. NEUROLOGIC: Awake, alert, and verbal. Follows commands. MEDICATIONS: Reviewed. Tylenol 650 every 4 hours p.r.n. for mild pain, Mucomyst 2 mL inhalation twice a day, DuoNeb 3 mL inhalation every 4 hours, Brovana 15 mcg every 12 hours, aspirin 81 mg daily, Lipitor 40 mg at dinner, Pulmicort 0.25 mg inhalation every 12 hours, Lovenox 40 mg subcu daily, ferrous sulfate 324 mg twice a day, Florinef 0.1 mg twice a day, Levemir 14 units subcu at bedtime, Humalog sliding scale before meals and at bedtime, Humalog 4 units subcu before meals, Synthroid 50 mcg daily, Solu-Medrol 40 mg IV push daily, Lopressor 25 mg twice a day, midodrine 10 mg three times a day, Zofran 4 mg IV push every 6 hours p.r.n., Percocet 5/325 mg 1 tablet every 4 hours p.r.n. for moderate pain, Protonix 40 mg daily, sodium chloride tablet 1 g twice a day, Bactrim 240 mg daily, and Bactrim DS 2 tabs twice a day. LABORATORY DATA: Reviewed. WBC 7.2, RBC 3.09, hemoglobin 7.6, hematocrit 25.4, and platelets 240. Sodium 129, potassium 3.7, chloride 96, carbon dioxide 32, anion gap 5, BUN 15, creatinine 0.6, GFR is greater than 60, POC glucose 103, random glucose 61, calcium 7.5, total bilirubin 0.3, AST 40, ALT 88, alkaline phosphatase 118, total protein 4.3, albumin 1.8, globulin 2.4, and albumin-globulin ratio 0.8. IMPRESSION AND PLAN: Lung cancer, chronic obstructive lung disease, gastroesophageal reflux disease, hypothyroidism, sleep apnea syndrome, obesity, anemia, cardiac diastolic dysfunction, pulmonary hypertension, orthostatic hypotension, hyponatremia, and activities of daily living dysfunction. Pulmonary point of view, continue inhaled bronchodilators. Continue abdominal binder. Continue JOESPH wrap to bilateral lower extremities and orthostatic hypotension precaution. Continue to use continuous positive airway pressure at bedtime, sleep apnea precaution, head of bed elevated at 45 degrees, fall precautions, and gastric prophylaxis. Continue sodium chloride tablets twice a day. Follow up labs in the morning. Neurology notes appreciated. This patient was seen and examined with Dr. Feliz. Discussed assessment and plan as described above. The patient was seen and examined with Juan Richardson, nurse practitioner. Discussed assessment and plan as described above. Thank you for this consult. We will follow with you. Juan Richardson APN Hussein Feliz MD
[2018-09-23] MEDS: Enoxaparin 40 mg Syringe SC SCH (09:33)
[2018-09-23] MEDS: Pantoprazole 40 mg EC Tab PO SCH (09:34)
[2018-09-23] MEDS: Insulin Lispro (humaLOG) LOW Coverage SC SCH ×4 (09:35→21:51)
[2018-09-23] MEDS: MethylPREDNISolone 40 mg Vial IV SCH (10:34)
--- NOTE | 2018-09-23 12:46 | PN ---
DATE: 09/23/2018 ENDO FOLLOWUP NOTE Room 366. SUBJECTIVE: This is a 68-year-old female with recent uncontrolled type 2 insulin-requiring diabetes presenting with acute exacerbation of COPD and pneumonitis and is now being followed closely for metabolic management. Her glycemic levels are fluctuating with low normal glucose values overnight as noted. Her glucose levels have ranged from 61-103 and 186 mg/dL. Her chemistry showed a BUN of 15, sodium 129, potassium 3.7, chloride 96, CO2 of 32, glucose 61 and creatinine 0.6. So at this time, her IV steroids have been tapered down to Solu-Medrol given as 40 mg IV piggyback as given. We will lower her basal insulin with Levemir to be given as 8 units subcu at bedtime daily to start tonight. We will continue the low-dose correction scale using Humalog insulin as given. We will also discontinue the Humalog, which is a very small dose prandial insulin given as 4 units subcu three times a day before meals as ordered. We will consider the addition of oral hypoglycemic drug therapy as indicated. We will obtain serial chemistries and supplement accordingly needed. We will follow. Crystal Mcgregor MD
[2018-09-23] MEDS: Tmp-Smz 800 mg-160 mg DS Tab PO SCH ×2 (14:09→21:50)
--- NOTE | 2018-09-23 18:36 | PN ---
DATE: 09/23/2018 SUBJECTIVE: The patient is seen, lying in bed in 3 hours. She continues to have intermittent dizziness, workup is in progress. Neurology evaluation has been requested. She underwent endoscopy since she denies any chest pain. Her recent dyspnea and peripheral edema has really well controlled. She remains off diuretic therapy. CURRENT MEDICATIONS: Include Mucomyst, aspirin, Bactrim DS, Brovana, DuoNeb inhaler, ferrous sulfate, Florinef 0.1 mg b.i.d., insulin, Lipitor, metoprolol 25 mg b.i.d., Lovenox, ProAmatine 10 mg t.i.d., Percocet p.r.n., Protonix, Pulmicort inhaler, Solu-Medrol 40 mg IV daily, Synthroid. OBJECTIVE: GENERAL: She is a overweight middle-aged woman. VITAL SIGNS: Blood pressure is 130/70 with pulse of 70 and sinus, respirations are 16. She is afebrile. NECK: No JVD. CHEST: A few coarse scattered rhonchi heard bilaterally. HEART: PMI displaced laterally with systolic murmur in the left sternal border. ABDOMEN: Soft, nontender with normoactive bowel sounds. EXTREMITIES: No edema. DIAGNOSTIC DATA: Sodium is 129, potassium 3.7, BUN and creatinine are 15 and 0.6. White count is 6.8, hemoglobin and hematocrit 7.2 and 24.1 with platelet count of 219,000. IMPRESSION: 1. Persistent dizziness, etiology uncertain. Severe anemia may be contributing to her symptomatology to some degree. Previously, her symptoms are felt to be brought on by aggressive diuresis which was used to treat her severe peripheral edema. Diuretic are now on hold for sometime. Neurology evaluation, CT of her head is pending. 2. Non-resectable lung cancer, undergoing chemotherapy. 3. Osteoporosis. RECOMMENDATIONS: Diuretic therapy will be continued to be withheld at this time with situation. Compression stockings, JOESPH wraps were continuously applied to her lower extremities to avoid recurrence of her peripheral edema. No other cardiac evaluation appears necessary at the present time. We will be happy to follow along as needed. Vidal Fong MD [facility] # [id number] MTD[facility]adie
--- NOTE | 2018-09-23 19:50 | PN ---
DATE: 09/23/2018 SUBJECTIVE: The patient is seen earlier today, in no acute distress, nontoxic. PHYSICAL EXAMINATION: VITAL SIGNS: Temperature is 97, blood pressure is 107/60, respiratory rate of 18. HEENT: Unremarkable. NECK: Supple. LUNGS: Have decreased breath sounds. Heart: Normal S1 and S2. ABDOMEN: Soft and nontender. LABORATORY DATA: Examination reveals a white count of 6.8 and hemoglobin of 7. Chemistries are noted. Urinalysis is noted. Microbiology is reviewed. ASSESSMENT AND PLAN: This is a 68-year-old male with a past medical history of lung cancer with a non-small cell carcinoma, morbid obesity, hyperlipidemia, colon cancer status post resection, presented with shortness of breath, found to have bilateral alveolar infiltrates, possibly consider atypical with a positive beta-glucan suggested of Pneumocystis and IV Bactrim day #12, would complete at least 14 days. Review of orders reveals the patient's Bactrim to require renewal, which we will do so. The patient is also on Solu-Medrol. We will follow with you. Bayron Rooney MD
[2018-09-23] MEDS: Insulin Detemir 100 units/ml Vial (Levemir) SC SCH (21:51)
--- NOTE | 2018-09-24 00:15 | PN ---
DATE: 09/23/2018 SUBJECTIVE: The patient is seen sitting in chair. She is awake. She is alert. She is comfortable. She does not appear to be in any kind of distress. PHYSICAL EXAMINATION: VITAL SIGNS: Blood pressure 190/70, heart rate 83, respiratory rate 18, temperature 97.5. HEENT: Normocephalic, atraumatic, positive pallor. NECK: Supple, no JVD. LUNGS: Bilateral equal entry, bilateral rhonchi, no rales. CARDIAC: S1 and S2, regular rate and rhythm, no murmur, no rub. ABDOMEN: Obese, distended, soft, nontender, bowel sounds present. EXTREMITIES: 2+ pitting edema. INTAKE AND OUTPUT: 969/1000. LABORATORY DATA: WBC 6.8, hemoglobin 7.2, hematocrit 24, platelets 219. Sodium 129, potassium 3.7, chloride 96, CO2 of 32, BUN 15, creatinine of 0.6, glucose 61, calcium 7.5, AST 40, ALT 88, albumin 1.9. Urine sodium 52, urine osmolality 687. Uric acid 4.5. ASSESSMENT: 1. Hyponatremia, syndrome of inappropriate antidiuretic hormone. 2. Severe anemia. 3. Orthostatic hypotension. 4. Stage III nonresectable non-small cell carcinoma of the lung. 5. Severe anemia. PLAN: 1. Continue ProAmatine. 2. Continue Florinef 0.1 b.i.d. 3. Continue pressure stockings. 4. Physical therapy. Tamiko Jang MD
[2018-09-24] MEDS: Albuterol-Ipratrop 3 mg / 0.5 (3 ml) UD IH SCH ×6 (01:47→19:38)
--- NOTE | 2018-09-24 03:31 | PN ---
DATE: 09/23/2018 ONCOLOGY PROGRESS NOTE LOCATION: The patient is in room 366, bed 1. SUBJECTIVE: The patient is sitting on the bed, is awake, alert, and oriented. He is receiving his first unit of the two units of the blood that she is supposed to get today. Reports feeling well today, but only getting dizzy with movement, which got better as she gradually stood up. No headaches, rhinitis, cough, shortness of breath, chest pain, abdominal pain, nausea, vomiting, diarrhea, or leg pain. Leg swelling at this time. Appetite is decedent. The leg swelling is dramatically improved. Arm swelling is getting better and the bruises in the arms are also getting better with the port in place now. She is able to get her IV medicines through the port. OBJECTIVE: GENERAL: The patient is in no acute distress. VITAL SIGNS: Stable. Blood pressure is 130/72, pulse is 78, T-max is 97.6, O2 sat is 95%. The nurse tells me that the blood is infusing, that her pressure is lower on the lower side, hopefully with transfusion the oncotic pressure will improve and her pressures will go up. O2 saturations are 95% on oxygen. HEENT: Head is normocephalic, atraumatic. Conjunctivae pale. Sclerae anicteric. Pupils are equally reactive to light and accommodation. OROPHARYNX: There is no oropharyngeal lesions. Crowded airways are noted. NECK: Supple. There is no adenopathy. No jugular venous distention noted. LUNGS: Reveal rhonchi bilaterally. CARDIOVASCULAR SYSTEM: Reveals S1, S2 to be normal. No gallop or murmur is heard. ABDOMEN: Soft, nontender, protuberant. Liver and spleen are not palpable. No rebound, rigidity, or guarding is noted. EXTREMITIES: Reveal bilateral lower extremity edema, which is slowly improving and considered to be improved compared to 10 days ago. NEUROLOGIC: Reveals higher functions to be normal. No focal deficits are noted except for the dizziness with position and movement. The patient appears to be improving. She is being observed and followed by Cardiology, Neurology, and Renal for fluid and electrolyte imbalance. MEDICATIONS: The patient's medications are reviewed. She is on Tylenol 650 mg every 4 hours p.r.n., Mucomyst 2 mL inhalation twice a day, DuoNeb 3 mL inhalation every 4 hours, Brovana 15 mcg inhaled every 12 hours, aspirin 81 mg daily, Lipitor 40 mg at bedtime, Pulmicort 0.25 mg inhaled every 12 hours. She is on prophylactic doses of Lovenox 40 mcg subcu daily. She is on ferrous sulfate 324 mg twice a day, Florinef 0.1 mg twice a day, Levemir 14 units subcu at bedtime, Humalog sliding scale between meals and bedtime, Humalog 4 units subcu before meals, Synthroid 50 mcg subcu daily, Solu-Medrol 40 mg IV push daily, Lopressor 25 mg b.i.d., 10 mg three times a day, Zofran p.r.n. for nausea, Percocet one tablet every 4 hours for moderate pain, Protonix 40 mg daily, sodium chloride 1 g twice a day, Bactrim 240 mg daily, and Bactrim DS two tabs twice a day. DIAGNOSTIC DATA: The patient's most recent CAT scan shows improved infiltrates and the tumor size is stable without any progression of disease. ASSESSMENT, NOTES, AND PLAN: The patient has stage IIIA non-small cell carcinoma of the lung, currently status post radiation, completed about eight days ago to the right hilum and to the right upper lobe for the obstructive disease, on crizotinib which is on hold for the past few days because of progressive edema. Chronic obstructive lung disease, gastroesophageal reflux disease, hypothyroidism, sleep apnea syndrome, obesity, anemia, cardiac diastolic dysfunction, pulmonary hypertension, also static hypotension, hyponatremia, activities of daily living dysfunction. The patient is on abdominal binders, sequential Sky wrappings for her lower extremity, follow up with stasis precaution, is continuing continuous positive airway pressure at night time, sleep apnea prevention, head of bed kept at 45 degrees, fall precautions, gastric prophylaxis as well as deep venous thrombosis prophylaxis being prescribed. Labs are being monitored very carefully, whole labs have been requested for a.m. The patient is receiving her first unit of blood today and will be getting the second unit thereafter. We will discuss the input from Pulmonary and Renal services as well and make appropriate decision. Our plan at this point is the patient becoming progressively medically stable, but positive day for possible discharge would be , which is three to four days from now. Hopefully, the patient will be ambulatory and will be left with you and this day would be a safe discharge and can follow up as an outpatient. Crizotinib will still be on hold until they are completely satisfied with her orthostatic issues and her edema issues. Time spent on the patient is greater than 45 minutes. given to the patient. Gabby Adames MD
[2018-09-24] MEDS: SULFAMETHOXAZOLE IVPB SCH (06:07)
[2018-09-24] MEDS: TRIMETHOPRIM IVPB SCH (06:07)
[2018-09-24] MEDS: DEXTROSE 5% IVPB SCH (06:07)
[2018-09-24] MEDS: WATER IVPB SCH (06:07)
[2018-09-24 07:25] LABS: ALB/GLOB RATIO 0.8 (1.1-1.8); ALBUMIN 2.3 g/dL (3.0-4.8); ALT/SGPT 98 U/L (7-56); AST/SGOT 42 U/L (14-36); BLOOD UREA NITROGEN 18 mg/dL (7-21); CALCIUM 7.8 mg/dL (8.4-10.5); GFR NON-AFRICAN AMERICAN > 60
[2018-09-24] MEDS: Arformoterol 15 mcg/2 ml Inh Sol IH SCH ×2 (07:50→19:38)
[2018-09-24] MEDS: Acetylcysteine 20% Inhal Soln (4ml) IH SCH ×3 (07:52→19:38)
[2018-09-24] MEDS: Budesonide 0.25 mg/2 ml Inhal Susp UD IH SCH ×2 (07:53→19:39)
[2018-09-24] MEDS: Insulin Lispro (humaLOG) LOW Coverage SC SCH ×4 (08:07→21:34)
[2018-09-24 08:15] LABS: BASO # 0.01 K/mm3 (0.0-2.0); BASO % 0.1 % (0.0-3.0); EOS % 0.4 % (1.5-5.0); HEMOGLOBIN 10.1 g/dL (12.0-16.0); LYMPH # 0.4 (1.2-3.4); MEAN CELL VOLUME 82.7 fl (80.0-105.0); MEAN CORPUSCULAR HEMOGLOBIN 25.8 pg (25.0-35.0); MEAN CORPUSCULAR HGB CONC 31.2 g/dl (31.0-37.0); MONO # 0.6 (0.1-0.6); MONO % 7.1 % (1.0-6.0); RBC 3.92 10^6/uL (3.5-6.1); RED CELL DISTRIBUTION WIDTH 22.6 % (11.5-14.5); WHITE BLOOD COUNT 9.1 10^3/uL (4.5-11.0)
[2018-09-24] MEDS: MethylPREDNISolone 40 mg Vial IV SCH (09:47)
[2018-09-24] MEDS: Pantoprazole 40 mg EC Tab PO SCH (09:48)
[2018-09-24] MEDS: Enoxaparin 40 mg Syringe SC SCH (09:49)
[2018-09-24] MEDS: POLYETHYLENE GLYCOL 3350 17 GM/Dose PACKET PO SCH ×2 (11:45→18:07)
[2018-09-24] MEDS: Tmp-Smz 800 mg-160 mg DS Tab PO SCH (13:07)
--- NOTE | 2018-09-24 17:16 | CP.PCM.PN ---
Subjective - Date & Time of Evaluation Date of Evaluation: 09/24/18 Time of Evaluation: 10:30 - Subjective Subjective: Comfortable on a chair, no fevers, not in distress. Breathing better but still has some occasional lightheadedness when standing up. Objective - Vital Signs/Intake and Output Vital Signs (last 24 hours): Temp Pulse Resp BP Pulse Ox 98 F 74 18 144/87 96 09/24/18 08:02 09/24/18 08:02 09/24/18 08:02 09/24/18 08:02 09/24/18 08:02 Intake and Output: 09/24/18 09/24/18 06:59 18:59 Intake Total 0 Balance 0 - Medications Medications: Current Medications Acetaminophen (Tylenol 325mg Tab) 650 mg PO Q4 PRN PRN Reason: Pain, Mild (1-3) Last Admin: 09/23/18 21:50 Dose: 650 mg Acetaminophen (Tylenol 325mg Tab) 650 mg PO ONCE PRN PRN Reason: Pre-medication for transfuse Last Admin: 09/23/18 11:18 Dose: 650 mg Acetylcysteine (Acetylcysteine 20%) 2 ml IH BID [facility] Last Admin: 09/24/18 07:52 Dose: 2 ml Albuterol/Ipratropium (Duoneb 3 Mg/0.5 Mg (3 Ml) Ud) 3 ml IH [id number] [facility] Last Admin: 09/24/18 07:53 Dose: 3 ml Arformoterol Tartrate (Brovana) 15 mcg IH [id number] [facility] Last Admin: 09/23/18 19:22 Dose: 15 mcg Aspirin (Aspirin Chewable) 81 mg PO DAILY [facility] Last Admin: 09/24/18 09:48 Dose: 81 mg Atorvastatin Calcium (Lipitor) 40 mg PO DIN [facility] Budesonide (Pulmicort Respules) 0.25 mg IH [id number] [facility] Last Admin: 09/24/18 07:53 Dose: 0.25 mg Dextrose (Dextrose 50% Inj) 0 ml IV STAT PRN; Protocol PRN Reason: Hypoglycemia Protocol Diphenhydramine HCl (Benadryl) 25 mg PO ONCE PRN PRN Reason: Pre-medication for transfusion Last Admin: 09/23/18 11:19 Dose: 25 mg Enoxaparin Sodium (Lovenox) 40 mg SC DAILY [facility]; Protocol Last Admin: 09/24/18 09:49 Dose: 40 mg Ferrous Sulfate (Feosol) 324 mg PO BID [facility] Last Admin: 09/24/18 09:48 Dose: 324 mg Fludrocortisone Acetate (Florinef) 0.1 mg PO BID [facility] Last Admin: 09/24/18 09:48 Dose: 0.1 mg Trimethoprim/Sulfamethoxazole (240 mg/ Dextrose) 500 mls @ 166.667 mls/hr IVPB 0600 [facility]; Protocol Last Admin: 09/24/18 06:07 Dose: 166.667 mls/hr Dextrose (Dextrose 5% In Water 1000 Ml) 1,000 mls @ 0 mls/hr IV .Q0M PRN; Protocol PRN Reason: Hypoglycemia Protocol Insulin Detemir (Levemir) 8 unit SC HS [facility] Last Admin: 09/23/18 21:51 Dose: 8 units Insulin Human Lispro (Humalog Low) 0 units SC ACHS [facility]; Protocol Last Admin: 09/24/18 08:07 Dose: Not Given Levothyroxine Sodium (Synthroid) 50 mcg PO 0600 [facility] Methylprednisolone (Solu-Medrol) 40 mg IVP DAILY Stop: 10/05/18 23:59 Methylprednisolone (Solu-Medrol) 40 mg IV DAILY [facility] Last Admin: 09/24/18 09:47 Dose: 40 mg Metoprolol Tartrate (Lopressor) 25 mg PO BID [facility] Midodrine (Proamatine) 10 mg PO TID [facility] Last Admin: 09/24/18 09:52 Dose: 10 mg Ondansetron HCl (Zofran Inj) 4 mg IVP Q6H PRN PRN Reason: Nausea/Vomiting Pantoprazole Sodium (Protonix Ec Tab) 40 mg PO DAILY [facility] Last Admin: 09/24/18 09:48 Dose: 40 mg Sodium Chloride (Sodium Chloride Tab) 1 gm PO BID [facility] Last Admin: 09/24/18 09:48 Dose: 1 gm Trimethoprim/Sulfamethoxazole (Bactrim Ds Tab) 2 tab PO 1400,2200 [facility]; Protocol Last Admin: 09/23/18 21:50 Dose: 2 tab - Labs Labs: 09/24/18 06:00 09/24/18 06:00 - Constitutional Appears: Chronically Ill - Head Exam Head Exam: NORMAL INSPECTION - Neck Exam Neck Exam: absent: Meningismus - Respiratory Exam Respiratory Exam: Decreased Breath Sounds - Cardiovascular Exam Cardiovascular Exam: +S1, +S2 - GI/Abdominal Exam GI & Abdominal Exam: Soft. absent: Tenderness Assessment and Plan - Assessment and Plan (Free Text) Plan: Assessment bilteral alveolar infiltrates, consider atypical pneumonia; beta glucan positive, which may be suggestive of Pneumocystis new onset leukocytosis R/O new onset sepsis history of probable right sided HCAP associated with lung mass lung cancer, non-small cell, stage 4 morbid obesity with BMI 40 dyslipidemia colon cancer Plan continue Bactrim IV day 13 for 14-21 days but on discussion with Dr. Jang, she is fluid-restricted - will keep the morning dose of Bactrim IV, then the 2pm dose and 10 pm doses Bactrim DS PO - will follow up ABG to see if her oxygenation is better and if it is, we can switch to Mepron Overall prognosis is poor will continue to monitor clinically repeat cultures are negative
--- NOTE | 2018-09-24 19:25 | PN ---
DATE: 09/24/2018 ENDO FOLLOWUP NOTE LOCATION: Room 366. SUBJECTIVE: This is a 68-year-old female with recent uncontrolled type 2 and recent acute exacerbation of COPD on a tapering IV steroid dose regimen as noted and is being followed closely now for metabolic management. LABORATORY DATA: glucose 209 mg/dL. Her chemistry showed a BUN of 18, sodium 128, potassium 3.7, chloride 95, CO2 of 29, glucose 116 and creatinine 0.6. ASSESSMENT AND PLAN: So at this time, we will continue the same basal insulin given as Levemir at 80 units subcutaneously at bedtime daily as given. The Humalog given at a very low dose as ordered. We will continue the low-dose. We will obtain serial chemistries and supplement accordingly as needed. We will follow. Crystal Mcgregor MD
[2018-09-24] MEDS: Insulin Detemir 100 units/ml Vial (Levemir) SC SCH (21:34)
[2018-09-25] MEDS: Albuterol-Ipratrop 3 mg / 0.5 (3 ml) UD IH SCH ×7 (00:17→23:13)
[2018-09-25] MEDS: TRIMETHOPRIM IVPB SCH (06:08)
[2018-09-25] MEDS: SULFAMETHOXAZOLE IVPB SCH (06:08)
[2018-09-25] MEDS: DEXTROSE 5% IVPB SCH (06:08)
[2018-09-25] MEDS: WATER IVPB SCH (06:08)
[2018-09-25 06:34] LABS: BASO # 0.01 K/mm3 (0.0-2.0); BASO % 0.1 % (0.0-3.0); EOS # 0.1 (0.0-0.7); EOS % 0.6 % (1.5-5.0); HEMOGLOBIN 9.9 g/dL (12.0-16.0); LYMPH # 0.3 (1.2-3.4); LYMPH % 4.1 % (22.0-35.0); MEAN CELL VOLUME 83.3 fl (80.0-105.0); MEAN CORPUSCULAR HEMOGLOBIN 25.8 pg (25.0-35.0); MEAN CORPUSCULAR HGB CONC 30.9 g/dl (31.0-37.0); MEAN PLATELET VOLUME 9.6 fl (7.0-11.0); MONO # 0.4 (0.1-0.6); MONO % 5.4 % (1.0-6.0); RBC 3.84 10^6/uL (3.5-6.1); RED CELL DISTRIBUTION WIDTH 23.2 % (11.5-14.5); WHITE BLOOD COUNT 8.1 10^3/uL (4.5-11.0)
[2018-09-25 06:53] LABS: ALB/GLOB RATIO 0.8 (1.1-1.8); ALBUMIN 2.2 g/dL (3.0-4.8); ALT/SGPT 96 U/L (7-56); AST/SGOT 34 U/L (14-36); BLOOD UREA NITROGEN 18 mg/dL (7-21); CALCIUM 7.9 mg/dL (8.4-10.5); GFR NON-AFRICAN AMERICAN > 60
[2018-09-25] MEDS: Acetylcysteine 20% Inhal Soln (4ml) IH SCH ×2 (08:15→20:12)
[2018-09-25] MEDS: Insulin Lispro (humaLOG) LOW Coverage SC SCH ×2 (08:17→11:33)
[2018-09-25] MEDS: Budesonide 0.25 mg/2 ml Inhal Susp UD IH SCH ×2 (08:18→20:13)
[2018-09-25] MEDS: Arformoterol 15 mcg/2 ml Inh Sol IH SCH ×2 (08:18→20:12)
--- NOTE | 2018-09-25 08:27 | PN ---
DATE: 09/24/2018 PULMONARY PROGRESS NOTE REFERRING PHYSICIAN: Gerard Gibson MD SUBJECTIVE: The patient is lying in bed with CPAP in place. No overnight events reported. No acute distress. The patient reports feeling well today, still gets dizzy with movements. No headache, rhinitis, cough, shortness of breath, chest pain, abdominal pain, nausea, vomiting, diarrhea, leg pain or leg swelling reported. OBJECTIVE: GENERAL: No acute distress. VITAL SIGNS: Blood pressure 144/87, pulse 74, temperature 98, oxygen saturation 96. HEENT: Moist mucous membranes. Mallampati score of 4. Crowded airway. NECK: Supple. No JVD. LUNGS: Rhonchi bilaterally. CARDIOVASCULAR: S1 and S2. ABDOMEN: Soft, nontender. No distention. No organomegaly. EXTREMITIES: Bilateral lower extremity edema is present. NEUROLOGIC: Awake, alert and verbal. Follows commands. MEDICATIONS: Reviewed. Tylenol 650 every 4 hours p.r.n. for mild pain, Mucomyst 2 mL inhalation twice a day, DuoNeb 3 mL inhalation every 4 hours, Brovana 15 mcg every 12 hours, aspirin 81 mg daily, Lipitor 40 mg at dinner, Pulmicort 0.25 mg inhalation every 12 hours, Colace 200 mg three times a day, Lovenox 40 mg subcu daily, ferrous sulfate 324 mg twice a day, Florinef 0.1 mg twice a day, Levemir 8 units subcu at bedtime, Humalog sliding scale a.c. and h.s., Synthroid 50 mcg daily, Solu-Medrol 40 mg IV push daily, metoprolol tartrate 25 mg twice a day, midodrine 10 mg three times a day, Zofran 4 mg IV push every 6 hours p.r.n., Protonix 40 mg daily, MiraLax 17 g twice a day, sodium chloride 1 g twice a day, Bactrim 240 mg daily. LABORATORY DATA: Reviewed. WBC 9.1, RBC 3.92, hemoglobin 10.1, hematocrit 32.4, platelets 237. Sodium 128, potassium 3.7, chloride 95, carbon dioxide 29, anion gap 8, BUN 18, creatinine 0.6. GFR is greater than 60. POC glucose 209, random glucose 116, calcium 7.8, total bilirubin 0.4, AST 42, ALT 98, alkaline phosphatase 138, total protein is 5, albumin 2.3, globulin 2.7, albumin-globulin ratio is 0.8. IMPRESSION AND PLAN: Lung cancer, chronic obstructive lung disease, hypothyroidism, gastroesophageal reflux disease, sleep apnea syndrome, obesity, anemia, cardiac diastolic dysfunction, pulmonary hypertension, hyponatremia, orthostatic hypotension, activities of daily living dysfunction. Pulmonary point of view, continue inhaled bronchodilators. Discussed with nursing that the patient should have Sky wrap to bilateral lower extremity and should be wearing abdominal binder when getting out bed, orthostatic hypotension precaution. Continue continuous positive airway pressure use at bedtime, sleep apnea precaution, head of bed elevated at 45 degrees, gastric prophylaxis, fall precaution, deep venous thrombosis prophylaxis. The patient is currently on fluid restriction. Continue sodium chloride tablet twice a day. Follow up labs in the morning. This patient was seen and examined with Dr. Feliz. Discussed assessment and plan as described above. This patient was seen and examined with Juan Richardson, nurse practitioner. Discussed assessment and plan as described above. Thank you for this consult. We will follow with you. Juan Richardson APN Hussein Feliz MD DAVID
[2018-09-25] MEDS: Enoxaparin 40 mg Syringe SC SCH (09:42)
[2018-09-25] MEDS: MethylPREDNISolone 40 mg Vial IV SCH (09:42)
[2018-09-25] MEDS: POLYETHYLENE GLYCOL 3350 17 GM/Dose PACKET PO SCH ×4 (09:43→17:42)
[2018-09-25] MEDS: Pantoprazole 40 mg EC Tab PO SCH (09:43)
--- NOTE | 2018-09-25 10:14 | CP.PCM.PN ---
Subjective - Date & Time of Evaluation Date of Evaluation: 09/25/18 Time of Evaluation: 07:50 - Subjective Subjective: Progress Note for Dr. Mcgregor (Endocrine) Service Richard Aden DO, IM PGY-3 Patient seen and examined at bedside. No acute events overnight reported by nursing, and no complaints from patient this AM. Aware that her sugars have been elevated in part due to steroids. Reports breathing is improved. Denies sensation of shortness of breath, chest pain, acute paresthesias. Objective - Vital Signs/Intake and Output Vital Signs (last 24 hours): Temp Pulse Resp BP Pulse Ox 97.3 F L 82 21 150/86 95 09/25/18 08:07 09/25/18 08:07 09/25/18 08:07 09/25/18 08:07 09/25/18 08:07 Intake and Output: 09/25/18 09/25/18 06:59 18:59 Intake Total 1430 Output Total 1475 Balance -45 - Medications Medications: Current Medications Acetaminophen (Tylenol 325mg Tab) 650 mg PO Q4 PRN PRN Reason: Pain, Mild (1-3) Last Admin: 09/23/18 21:50 Dose: 650 mg Acetaminophen (Tylenol 325mg Tab) 650 mg PO ONCE PRN PRN Reason: Pre-medication for transfuse Last Admin: 09/23/18 11:18 Dose: 650 mg Acetylcysteine (Acetylcysteine 20%) 2 ml IH BID [facility] Last Admin: 09/24/18 19:38 Dose: 2 ml Albuterol/Ipratropium (Duoneb 3 Mg/0.5 Mg (3 Ml) Ud) 3 ml IH [id number] [facility] Last Admin: 09/25/18 08:18 Dose: 3 ml Arformoterol Tartrate (Brovana) 15 mcg IH [id number] [facility] Last Admin: 09/25/18 08:18 Dose: 15 mcg Aspirin (Aspirin Chewable) 81 mg PO DAILY [facility] Last Admin: 09/25/18 09:43 Dose: 81 mg Atorvastatin Calcium (Lipitor) 40 mg PO DIN [facility] Budesonide (Pulmicort Respules) 0.25 mg IH [id number] [facility] Last Admin: 09/25/18 08:18 Dose: 0.25 mg Dextrose (Dextrose 50% Inj) 0 ml IV STAT PRN; Protocol PRN Reason: Hypoglycemia Protocol Diphenhydramine HCl (Benadryl) 25 mg PO ONCE PRN PRN Reason: Pre-medication for transfusion Last Admin: 09/23/18 11:19 Dose: 25 mg Docusate Sodium (Colace) 200 mg PO TID [facility] Last Admin: 09/25/18 10:02 Dose: Not Given Enoxaparin Sodium (Lovenox) 40 mg SC DAILY [facility]; Protocol Last Admin: 09/25/18 09:42 Dose: 40 mg Ferrous Sulfate (Feosol) 324 mg PO BID [facility] Last Admin: 09/25/18 09:43 Dose: 324 mg Fludrocortisone Acetate (Florinef) 0.1 mg PO BID [facility] Last Admin: 09/25/18 09:43 Dose: 0.1 mg Trimethoprim/Sulfamethoxazole (240 mg/ Dextrose) 500 mls @ 166.667 mls/hr IVPB 0600 [facility]; Protocol Last Admin: 09/25/18 06:08 Dose: 166.667 mls/hr Dextrose (Dextrose 5% In Water 1000 Ml) 1,000 mls @ 0 mls/hr IV .Q0M PRN; Protocol PRN Reason: Hypoglycemia Protocol Insulin Detemir (Levemir) 8 unit SC HS [facility] Last Admin: 09/24/18 21:34 Dose: 8 units Insulin Human Lispro (Humalog Low) 0 units SC [facility]; Protocol Last Admin: 09/25/18 08:17 Dose: Not Given Levothyroxine Sodium (Synthroid) 50 mcg PO 0600 [facility] Methylprednisolone (Solu-Medrol) 40 mg IVP DAILY Stop: 10/05/18 23:59 Methylprednisolone (Solu-Medrol) 40 mg IV DAILY [facility] Last Admin: 09/25/18 09:42 Dose: 40 mg Metoprolol Tartrate (Lopressor) 25 mg PO BID [facility] Midodrine (Proamatine) 10 mg PO TID [facility] Last Admin: 09/25/18 09:47 Dose: 10 mg Ondansetron HCl (Zofran Inj) 4 mg IVP Q6H PRN PRN Reason: Nausea/Vomiting Pantoprazole Sodium (Protonix Ec Tab) 40 mg PO DAILY [facility] Last Admin: 09/25/18 09:43 Dose: 40 mg Polyethylene Glycol (Miralax) 17 gm PO BID [facility] Last Admin: 09/25/18 10:03 Dose: Not Given Sodium Chloride (Sodium Chloride Tab) 1 gm PO BID [facility] Last Admin: 09/25/18 09:43 Dose: 1 gm - Labs Labs: 09/25/18 06:00 09/25/18 06:00 - Constitutional Appears: Non-toxic, No Acute Distress - Head Exam Head Exam: ATRAUMATIC, NORMAL INSPECTION, NORMOCEPHALIC - Eye Exam Eye Exam: EOMI, Normal appearance. absent: Conjunctival injection, Scleral icterus Pupil Exam: absent: Irregular, Unequal - ENT Exam ENT Exam: Mucous Membranes Moist - Neck Exam Neck Exam: absent: Lymphadenopathy, Thyromegaly - Respiratory Exam Respiratory Exam: Clear to Ausculation Bilateral, NORMAL BREATHING PATTERN. absent: Accessory Muscle Use, Chest Wall Tenderness, Decreased Breath Sounds, Rales, Rhonchi, Wheezes - Cardiovascular Exam Cardiovascular Exam: REGULAR RHYTHM, RRR, +S1, +S2. absent: Bradycardia, Tachycardia, Irregular Rhythm, JVD, +S4 - GI/Abdominal Exam GI & Abdominal Exam: Soft, Normal Bowel Sounds. absent: Distended, Firm, Guarding, Rigid, Tenderness - Extremities Exam Extremities Exam: Normal Capillary Refill, Normal Inspection. absent: Calf Tenderness, Pedal Edema - Neurological Exam Additional comments: awake and alert, following all commands appropriately, moving all extremities spontaneously - Psychiatric Exam Psychiatric exam: Normal Affect, Normal Mood - Skin Skin Exam: Dry, Intact, Normal Color, Warm Assessment and Plan - Assessment and Plan (Free Text) Assessment: This is a 68 yo F with PMH of NSCLC, Colon Ca s/p resection, HLD, HTN, COPD, Afib, Anemia of chronic dz, hypothyroidism, and morbid obesity who presented with complaint of shortness of breath s/p port-a-cath placement, with imaging concerning for PNA. Endocrine consulted for hyperglycemia while on steroids. Plan: 1) SOB s/p port-a-cath: radiation pneumonitis vs PNA 2) NSCLC s/p radiation therapy 3) Colon Ca s/p resection 4) HLD 5) HTN 6) COPD s/p outpatient steroid course 7) Afib 8) Anemia of chronic disease 9) Hyperglycemia likely 2/2 steroids 10) Hypothyroidism -24 hour glucose range 140-325 Continue Levemir 8 units SC HS, Lispro Low ISS AC Continue to monitor blood glucose as steroids weaned down by primary/pulm, adjust as needed, hypoglycemia protocol ordered -Hx hypothyroidism, pending restart of lower dose synthroid today as per Dr. Mcgregor Will discuss with attending, Dr. Mcgregor
[2018-09-25] MEDS ORDERED: MethylPREDNISolone 40 mg Vial IVP SCH (13:10)
--- NOTE | 2018-09-25 14:13 | CP.PCM.PN ---
Subjective - Date & Time of Evaluation Date of Evaluation: 09/25/18 Time of Evaluation: 12:05 - Subjective Subjective: Patient still having anxiety with standing up and walking, breathing is improved, no cough currently, no fevers, saw patient with Dr. Adames at bedside. Objective - Vital Signs/Intake and Output Vital Signs (last 24 hours): Temp Pulse Resp BP Pulse Ox 98 F 87 18 144/87 96 09/24/18 08:02 09/24/18 10:00 09/24/18 08:02 09/24/18 08:02 09/24/18 08:02 Intake and Output: 09/24/18 09/24/18 06:59 18:59 Intake Total 0 Balance 0 - Medications Medications: Current Medications Acetaminophen (Tylenol 325mg Tab) 650 mg PO Q4 PRN PRN Reason: Pain, Mild (1-3) Last Admin: 09/23/18 21:50 Dose: 650 mg Acetaminophen (Tylenol 325mg Tab) 650 mg PO ONCE PRN PRN Reason: Pre-medication for transfuse Last Admin: 09/23/18 11:18 Dose: 650 mg Acetylcysteine (Acetylcysteine 20%) 2 ml IH BID [facility] Last Admin: 09/24/18 11:59 Dose: Not Given Albuterol/Ipratropium (Duoneb 3 Mg/0.5 Mg (3 Ml) Ud) 3 ml IH [id number] [facility] Last Admin: 09/24/18 15:32 Dose: 3 ml Arformoterol Tartrate (Brovana) 15 mcg IH [id number] [facility] Last Admin: 09/24/18 07:50 Dose: 15 mcg Aspirin (Aspirin Chewable) 81 mg PO DAILY [facility] Last Admin: 09/24/18 09:48 Dose: 81 mg Atorvastatin Calcium (Lipitor) 40 mg PO DIN [facility] Budesonide (Pulmicort Respules) 0.25 mg IH [id number] [facility] Last Admin: 09/24/18 07:53 Dose: 0.25 mg Dextrose (Dextrose 50% Inj) 0 ml IV STAT PRN; Protocol PRN Reason: Hypoglycemia Protocol Diphenhydramine HCl (Benadryl) 25 mg PO ONCE PRN PRN Reason: Pre-medication for transfusion Last Admin: 09/23/18 11:19 Dose: 25 mg Docusate Sodium (Colace) 200 mg PO TID [facility] Last Admin: 09/24/18 13:07 Dose: 200 mg Enoxaparin Sodium (Lovenox) 40 mg SC DAILY [facility]; Protocol Last Admin: 09/24/18 09:49 Dose: 40 mg Ferrous Sulfate (Feosol) 324 mg PO BID [facility] Last Admin: 09/24/18 09:48 Dose: 324 mg Fludrocortisone Acetate (Florinef) 0.1 mg PO BID [facility] Last Admin: 09/24/18 09:48 Dose: 0.1 mg Trimethoprim/Sulfamethoxazole (240 mg/ Dextrose) 500 mls @ 166.667 mls/hr IVPB 0600 [facility]; Protocol Last Admin: 09/24/18 06:07 Dose: 166.667 mls/hr Dextrose (Dextrose 5% In Water 1000 Ml) 1,000 mls @ 0 mls/hr IV .Q0M PRN; Protocol PRN Reason: Hypoglycemia Protocol Insulin Detemir (Levemir) 8 unit SC [facility] Last Admin: 09/23/18 21:51 Dose: 8 units Insulin Human Lispro (Humalog Low) 0 units SC [facility]; Protocol Last Admin: 09/24/18 11:21 Dose: Not Given Levothyroxine Sodium (Synthroid) 50 mcg PO 0600 [facility] Methylprednisolone (Solu-Medrol) 40 mg IVP DAILY Stop: 10/05/18 23:59 Methylprednisolone (Solu-Medrol) 40 mg IV DAILY [facility] Last Admin: 09/24/18 09:47 Dose: 40 mg Metoprolol Tartrate (Lopressor) 25 mg PO BID [facility] Midodrine (Proamatine) 10 mg PO TID [facility] Last Admin: 09/24/18 13:07 Dose: 10 mg Ondansetron HCl (Zofran Inj) 4 mg IVP Q6H PRN PRN Reason: Nausea/Vomiting Pantoprazole Sodium (Protonix Ec Tab) 40 mg PO DAILY [facility] Last Admin: 09/24/18 09:48 Dose: 40 mg Polyethylene Glycol (Miralax) 17 gm PO BID [facility] Last Admin: 09/24/18 11:45 Dose: 17 gm Sodium Chloride (Sodium Chloride Tab) 1 gm PO BID [facility] Last Admin: 09/24/18 09:48 Dose: 1 gm - Labs Labs: 09/24/18 06:00 09/24/18 06:00 - Constitutional Appears: No Acute Distress, Chronically Ill - Head Exam Head Exam: NORMAL INSPECTION - ENT Exam ENT Exam: Mucous Membranes Moist - Neck Exam Neck Exam: absent: Meningismus - Respiratory Exam Respiratory Exam: Decreased Breath Sounds, Rales (scattered) - Cardiovascular Exam Cardiovascular Exam: +S1, +S2 - GI/Abdominal Exam GI & Abdominal Exam: Soft. absent: Tenderness Assessment and Plan - Assessment and Plan (Free Text) Plan: Assessment bilteral alveolar infiltrates, consider atypical pneumonia; beta glucan positive, which is very suggestive of Pneumocystis; clinically improving new onset leukocytosis R/O new onset sepsis history of probable right sided HCAP associated with lung mass lung cancer, non-small cell, stage 4 morbid obesity with BMI 40 dyslipidemia colon cancer Plan continue Bactrim IV and PO day 14 for 14-21 days but on discussion with Dr. Jang, she is fluid-restricted - will keep the morning dose of Bactrim IV, then the 2pm dose and 10 pm doses Bactrim DS PO - will follow up ABG to see if her oxygenation is better and if it is, we can switch to Mepron Overall prognosis is poor will continue to monitor clinically repeat cultures are negative discussed with Dr. Adames - after her course of PJP treatment, she needs to be on PJP prophylaxis with PO Bactrim 1 tab DS 3x weekly
--- NOTE | 2018-09-25 14:32 | PN ---
DATE: 09/25/2018 PULMONARY PROGRESS NOTE REFERRING PHYSICIAN: Gerard Gibson MD. SUBJECTIVE: This patient is sitting in arm chair in room, no acute distress. No overnight events reported. Still reports some dizziness with movements. No headache, rhinitis, cough, shortness of breath, chest pain, abdominal pain, nausea, vomiting, diarrhea, leg pain or leg swelling reported. OBJECTIVE: GENERAL: No acute distress. VITAL SIGNS: Blood pressure 150/86, pulse 82, temperature 97.3, oxygen 95% on nasal cannula. HEENT: Moist mucous membranes. Mallampati score of 4. Crowded airway. NECK: Supple. No JVD. LUNGS: Rhonchi bilaterally. CARDIOVASCULAR: S1 and S2. ABDOMEN: Soft, nontender. No distention. No organomegaly. EXTREMITIES: Bilateral lower extremity edema is present. Sky wrap in place. NEUROLOGIC: Awake, alert and verbal. Follows commands. MEDICATIONS: Reviewed. Tylenol 650 every 4 hours p.r.n. for mild pain, Mucomyst 2 mL inhalation twice a day, DuoNeb 3 mL inhalation every 4 hours, Brovana 15 mcg every 12 hours, aspirin 81 mg daily, Lipitor 40 mg at dinner, Pulmicort 0.25 mg every 12 hours inhalation, Colace 200 mg three times a day, Lovenox 40 mg subcu daily, ferrous sulfate 324 mg twice a day, Florinef 0.1 mg twice a day, Levemir 8 units subcu h.s., Humalog sliding scale a.c. and h.s., Synthroid 50 mcg daily, Solu-Medrol 40 mg IV daily, metoprolol tartrate 25 mg twice a day, midodrine 10 mg three times a day, Bactroban topically twice a day, Zofran 4 mg every 6 hours p.r.n., Protonix 40 mg daily, MiraLax 17 g twice a day, sodium chloride tab 1 g twice a day, and Bactrim 240 mg daily. LABORATORY DATA: Reviewed. WBC 8.1, RBC 3.84, hemoglobin 9.9, hematocrit 32, platelets 238. Sodium 129, potassium 3.9, chloride 97, carbon dioxide 27, anion gap 7, BUN 18, creatinine 0.6. GFR is greater than 60. POC glucose 105, random glucose 104, calcium 7.9, total bilirubin 0.3, AST 34, ALT 96, alkaline phosphatase 137, total protein is 4.9, albumin 3.2, globulin 2.5, albumin-globulin ratio is 0.8. IMPRESSION AND PLAN: Lung cancer, chronic obstructive lung disease, hypothyroidism, gastroesophageal reflux disease, sleep apnea syndrome, obesity, anemia, pulmonary hypertension, hyponatremia, orthostatic hypotension, cardiac diastolic dysfunction. Pulmonary point of view, continue inhaled bronchodilators. Continue Sky wrap to bilateral lower extremities. Continue abdominal binder. Orthostatic hypotension precaution. Continue continuous positive airway pressure use at bedside, sleep apnea precaution, head of bed elevated at 45 degrees. Gastric prophylaxis, deep venous thrombosis prophylaxis, fall precaution. We will decrease current fluid restriction from 1500 mL to 1200 mL. Discussed with the patient fluid restriction and that we will stop Solu-Medrol 40 mg daily and start the patient on Solu-Medrol 20 mg daily. Repeat labs in the morning. This patient was seen and examined with Dr. Feliz. Discussed assessment and plan as described above. This patient was seen and examined with Juan Richardson, nurse practitioner. Discussed assessment and plan as described above. Thank you for this consult. We will follow with you. Juan Richardson APN Hussein Feliz MD
--- NOTE | 2018-09-25 15:13 | CP.PCM.APN ---
Subjective - Date & Time of Evaluation Date of Evaluation: 09/25/18 Time of Evaluation: 11:00 - Subjective Subjective: Pt. seen and examined sitting up in chair. Still SOB on minimal exertion, generalized edema noted, with weeping from arms b/l, venodynes on Lower extremities b/l. Denied any other complaints. Objective - Vital Signs/Intake and Output Vital Signs (last 24 hours): Temp Pulse Resp BP Pulse Ox 97.3 F L 97 H 21 150/86 95 09/25/18 08:07 09/25/18 10:00 09/25/18 08:07 09/25/18 08:07 09/25/18 08:07 Intake and Output: 09/25/18 09/25/18 06:59 18:59 Intake Total 1430 Output Total 1475 Balance -45 - Medications Medications: Current Medications Acetaminophen (Tylenol 325mg Tab) 650 mg PO Q4 PRN PRN Reason: Pain, Mild (1-3) Last Admin: 09/23/18 21:50 Dose: 650 mg Acetaminophen (Tylenol 325mg Tab) 650 mg PO ONCE PRN PRN Reason: Pre-medication for transfuse Last Admin: 09/23/18 11:18 Dose: 650 mg Acetylcysteine (Acetylcysteine 20%) 2 ml IH BID [facility] Last Admin: 09/25/18 08:15 Dose: 2 ml Albuterol/Ipratropium (Duoneb 3 Mg/0.5 Mg (3 Ml) Ud) 3 ml IH [id number] [facility] Last Admin: 09/25/18 11:00 Dose: 3 ml Arformoterol Tartrate (Brovana) 15 mcg IH [id number] [facility] Last Admin: 09/25/18 08:18 Dose: 15 mcg Aspirin (Aspirin Chewable) 81 mg PO DAILY [facility] Last Admin: 09/25/18 09:43 Dose: 81 mg Atorvastatin Calcium (Lipitor) 40 mg PO DIN [facility] Budesonide (Pulmicort Respules) 0.25 mg IH [id number] [facility] Last Admin: 09/25/18 08:18 Dose: 0.25 mg Dextrose (Dextrose 50% Inj) 0 ml IV STAT PRN; Protocol PRN Reason: Hypoglycemia Protocol Diphenhydramine HCl (Benadryl) 25 mg PO ONCE PRN PRN Reason: Pre-medication for transfusion Last Admin: 09/23/18 11:19 Dose: 25 mg Docusate Sodium (Colace) 200 mg PO TID [facility] Last Admin: 09/25/18 14:05 Dose: Not Given Enoxaparin Sodium (Lovenox) 40 mg SC DAILY [facility]; Protocol Last Admin: 09/25/18 09:42 Dose: 40 mg Ferrous Sulfate (Feosol) 324 mg PO BID [facility] Last Admin: 09/25/18 09:43 Dose: 324 mg Fludrocortisone Acetate (Florinef) 0.1 mg PO BID [facility] Last Admin: 09/25/18 09:43 Dose: 0.1 mg Trimethoprim/Sulfamethoxazole (240 mg/ Dextrose) 500 mls @ 166.667 mls/hr IVPB 0600 [facility]; Protocol Last Admin: 09/25/18 06:08 Dose: 166.667 mls/hr Dextrose (Dextrose 5% In Water 1000 Ml) 1,000 mls @ 0 mls/hr IV .Q0M PRN; Protocol PRN Reason: Hypoglycemia Protocol Insulin Detemir (Levemir) 8 unit SC HS [facility] Last Admin: 09/24/18 21:34 Dose: 8 units Insulin Human Regular (Humulin R Med) 0 units SC [facility]; Protocol Levothyroxine Sodium (Synthroid) 50 mcg PO 0600 [facility] Levothyroxine Sodium (Synthroid) 50 mcg PO ONCE ONE Stop: 09/26/18 14:54 Methylprednisolone (Solu-Medrol) 20 mg IVP DAILY [facility] Stop: 10/05/18 23:59 Metoprolol Tartrate (Lopressor) 25 mg PO BID [facility] Midodrine (Proamatine) 10 mg PO TID [facility] Last Admin: 09/25/18 14:28 Dose: 10 mg Mupirocin (Bactroban Ointment) 0 gm TOP BID [facility] Ondansetron HCl (Zofran Inj) 4 mg IVP Q6H PRN PRN Reason: Nausea/Vomiting Pantoprazole Sodium (Protonix Ec Tab) 40 mg PO DAILY [facility] Last Admin: 09/25/18 09:43 Dose: 40 mg Polyethylene Glycol (Miralax) 17 gm PO BID [facility] Last Admin: 09/25/18 10:03 Dose: Not Given Sodium Chloride (Sodium Chloride Tab) 1 gm PO BID [facility] Last Admin: 09/25/18 09:43 Dose: 1 gm Trimethoprim/Sulfamethoxazole (Bactrim Ds Tab) 2 tab PO 1400,2200 [facility]; Protocol - Labs Labs: 09/25/18 06:00 09/25/18 06:00 - Constitutional Appears: No Acute Distress - Head Exam Head Exam: NORMOCEPHALIC - Eye Exam Eye Exam: Normal appearance - ENT Exam ENT Exam: absent: Mucous Membranes Dry, Mucous Membranes Moist, Normal Exam, Normal External Ear Exam, Normal Oropharynx, TM's Normal Bilaterally - Neck Exam Neck Exam: Full ROM - Respiratory Exam Respiratory Exam: Rales - Cardiovascular Exam Cardiovascular Exam: +S1, +S2 - GI/Abdominal Exam GI & Abdominal Exam: Soft, Normal Bowel Sounds - Rectal Exam Rectal Exam: Deferred - Exam External exam: absent: Ecchymosis, Erythema, Lacerations, Lesions, NORMAL EXTERNAL EXAM, Swelling Speculum exam: absent: Cervical Discharge, Erythema, Foreign Body, Laceration, NORMAL SPECULUM EXAM, Tissue, Vaginal Bleeding, Vaginal Discharge Bimanual exam: absent: Adenexal Mass, Adnexal, Cervical Motion Tendernes, NORMAL BIMANUAL EXAM, Uterine Enlargement, Uterine Tenderness - Extremities Exam Extremities Exam: Pedal Edema Additional comments: b/l arms with weeping noted, b/l legs with edema, wrapped with Venodynes in place. - Back Exam Back Exam: Full ROM, NORMAL INSPECTION - Neurological Exam Neurological Exam: Alert, Awake, Oriented x3 - Psychiatric Exam Psychiatric exam: Normal Affect - Skin Skin Exam: Normal Color, Warm Assessment and Plan - Assessment and Plan (Free Text) Assessment: Assessment: 68 year old female with a PMHx of unresectable stage III NSCLC with an ALK mutation, COPD, CHF, ASCVD, hx of colon cancer with resection stage 2, MA, AFib (now resolved), anemia of chronic disease, low vitamin D, obesity who presented with dizziness, worse , admitted from [facility], s/p portacath insertion to right upper . Plan: 1. Dizziness, s/p portacath insertion -maybe r/t orthostatic hypotension cont. Florinef, Midodrine, Renal and card consults pending 2. Unresectable Lung CA, Stage III completed RAdiation with Dr Sinha 3..Right Upper Lobe Infiltrate 2/2 Radiation Induced or Superimposed HCAP Cont. IV Antibx per I.D. 4.. COPD On Duonebs, Bronchodilators, Solumedrol tapering as per pulm. 5. B/L LE Edema- likely secondary to Right Sided CHF Diuretics, cardiology consult pending. Will cont to monitor clinical status and follow closely. Will D/w with consultants, PMD.
[2018-09-25] MEDS ORDERED: Tolvaptan 15 MG TAB PO STA (15:17)
[2018-09-25] MEDS: Tmp-Smz 800 mg-160 mg DS Tab PO SCH ×2 (15:24→21:51)
[2018-09-25] MEDS: Mupirocin 2% Ointment 15 GM TUBE TOP SCH (17:34)
[2018-09-25] MEDS: Insulin Reg-MEDIUM-Coverage SC SCH ×2 (17:37→21:51)
--- NOTE | 2018-09-25 17:54 | PN ---
DATE: 09/25/2018 ENDO FOLLOWUP NOTE ROOM: 366 SUBJECTIVE: This is a 68-year-old female with recent uncontrolled type 2 insulin-requiring diabetes, now being followed closely for metabolic management. Her IV steroid therapy has been tapered down to Solu-Medrol given as 20 mg IV piggyback once daily as ordered. Her glycemic levels are fluctuating, but improved and the glucose values overnight have ranged from 105 to 176 and 208 mg/dL. Her chemistry showed a BUN of 18, sodium 129, potassium 3.9, chloride 97, CO2 of 29, glucose 104 and creatinine 0.6. So at this time, we will continue the modified basal insulin given as Levemir only at 8 units subcu at bedtime daily as given. We have actually discontinue the prandial insulin with Humalog given before meals as ordered. We will continue her low-dose correction scale using Humalog insulin as given. We will obtain serial chemistries and supplement accordingly needed. We will also resume her levothyroxine given as 50 mcg once daily as ordered. We will follow this. Crystal Mcgregor MD
--- NOTE | 2018-09-25 18:30 | PN ---
DATE: 09/25/2018 SUBJECTIVE: The patient is seen sitting in chair. She is awake. She is alert. She is comfortable. She reports that she had physical therapy this morning. She was able to stand and do some exercises for about 15 minutes. She did gets lightheaded, but it was much better. PHYSICAL EXAMINATION: GENERAL: Obese elderly lady sitting in bed. She is sitting in chair. VITAL SIGNS: Blood pressure 105/60 sitting down, standing up 93/60. HEENT: Normocephalic, atraumatic, positive pallor. NECK: Supple. No JVD. CARDIOPULMONARY: S1, S2, regular rate and rhythm, no murmur, no rub. LUNGS: Bilateral equal air entry, bilateral rhonchi, no rales. ABDOMEN: Obese, distended, soft, nontender, bowel sounds present. EXTREMITIES: 2+ pitting edema of the lower extremities. INTAKE AND OUTPUT: 1430/1475. LABORATORY DATA: WBC 8, hemoglobin 9.9, hematocrit 32, platelets 238. Sodium 129, potassium 3.9, chloride 97, CO2 of 29, BUN 18, creatinine 0.6, glucose 104, calcium 7.9, albumin 2.2. Corrected calcium is 9. CURRENT MEDICATIONS: Aspirin, Bactrim 2 tablets b.i.d., Benadryl, Brovana, Colace, Feosol, Florinef 0.1 b.i.d., Lipitor 40, Lopressor 25 b.i.d. on hold, ProAmatine 10 t.i.d., Protonix, Synthroid 50, Bactrim 240 mg IV daily, Zofran. ASSESSMENT: 1. Severe orthostatic hypotension, now improved. 2. Anemia. 3. Chronic obstructive pulmonary disease. 4. Stage III nonresectable non-small cell cancer of the lung. 5. Pneumonia. 6. Edema. PLAN: 1. Continue Florinef 0.1 b.i.d. 2. Continue ProAmatine 10 t.i.d. 3. Follow up aldosterone levels. 4. Physical therapy. 5. Continue empiric antibiotics Tamiko Jang MD [facility] # [id number]
[2018-09-25] MEDS: Insulin Detemir 100 units/ml Vial (Levemir) SC SCH (21:51)
[2018-09-26] MEDS: Albuterol-Ipratrop 3 mg / 0.5 (3 ml) UD IH SCH ×5 (04:40→23:55)
[2018-09-26] MEDS: TRIMETHOPRIM IVPB SCH (05:34)
[2018-09-26] MEDS: SULFAMETHOXAZOLE IVPB SCH (05:34)
[2018-09-26] MEDS: WATER IVPB SCH (05:34)
[2018-09-26] MEDS: DEXTROSE 5% IVPB SCH (05:34)
[2018-09-26] MEDS: Levothyroxine 50 MCG TAB PO SCH (05:35)
[2018-09-26 06:26] LABS: BASO # 0.02 K/mm3 (0.0-2.0); BASO % 0.3 % (0.0-3.0); EOS % 0.6 % (1.5-5.0); HEMOGLOBIN 9.7 g/dL (12.0-16.0); LYMPH # 0.4 (1.2-3.4); LYMPH % 5.5 % (22.0-35.0); MEAN CELL VOLUME 84.4 fl (80.0-105.0); MEAN CORPUSCULAR HEMOGLOBIN 25.6 pg (25.0-35.0); MEAN CORPUSCULAR HGB CONC 30.3 g/dl (31.0-37.0); MEAN PLATELET VOLUME 9.5 fl (7.0-11.0); MONO # 0.4 (0.1-0.6); MONO % 5.7 % (1.0-6.0); RBC 3.79 10^6/uL (3.5-6.1); RED CELL DISTRIBUTION WIDTH 23.6 % (11.5-14.5); WHITE BLOOD COUNT 7.3 10^3/uL (4.5-11.0)
[2018-09-26 06:42] LABS: ALB/GLOB RATIO 0.9 (1.1-1.8); ALBUMIN 2.3 g/dL (3.0-4.8); ALT/SGPT 95 U/L (7-56); AST/SGOT 33 U/L (14-36); BLOOD UREA NITROGEN 15 mg/dL (7-21); GFR NON-AFRICAN AMERICAN > 60
[2018-09-26] MEDS: Acetylcysteine 20% Inhal Soln (4ml) IH SCH ×2 (07:58→19:30)
[2018-09-26] MEDS: Budesonide 0.25 mg/2 ml Inhal Susp UD IH SCH ×2 (07:59→19:30)
[2018-09-26] MEDS: Arformoterol 15 mcg/2 ml Inh Sol IH SCH ×2 (07:59→19:30)
[2018-09-26] MEDS: Insulin Reg-MEDIUM-Coverage SC SCH (08:05)
[2018-09-26] MEDS: Mupirocin 2% Ointment 15 GM TUBE TOP SCH ×2 (09:57→17:07)
[2018-09-26] MEDS: Enoxaparin 40 mg Syringe SC SCH (09:58)
[2018-09-26] MEDS: Pantoprazole 40 mg EC Tab PO SCH (09:58)
[2018-09-26] MEDS: POLYETHYLENE GLYCOL 3350 17 GM/Dose PACKET PO SCH ×2 (09:59→18:14)
--- NOTE | 2018-09-26 09:59 | CP.PCM.PN ---
Subjective - Date & Time of Evaluation Date of Evaluation: 09/26/18 Time of Evaluation: 07:30 - Subjective Subjective: Andriy Tran D.O. PGY-3, Internal Medicine Resident, Endocrinology Progress Note 68 year old female with a PMH of NSCLC, colon cancer s/p resection, HLD, HTN, COPD, atril fibrillation, anemia of chronic disease, hypothyroidism, and morbid obesity who presented with complaint of shortness of breath s/p port-a-cath placement, with imaging concerning for PNA. Endocrine consulted for hyperglycemia while on steroids. Patient was seen and examined at bedside. States that her main worry right now is being able to walk. Notes dizziness at times. No other major complaints. Objective - Vital Signs/Intake and Output Vital Signs (last 24 hours): Temp Pulse Resp BP Pulse Ox 97.6 F 95 H 20 140/82 97 09/26/18 08:20 09/26/18 08:20 09/26/18 08:20 09/26/18 08:20 09/26/18 08:20 Intake and Output: 09/26/18 09/26/18 06:59 18:59 Intake Total 1638 Output Total 300 Balance 1338 - Medications Medications: Current Medications Acetaminophen (Tylenol 325mg Tab) 650 mg PO Q4 PRN PRN Reason: Pain, Mild (1-3) Last Admin: 09/23/18 21:50 Dose: 650 mg Acetaminophen (Tylenol 325mg Tab) 650 mg PO ONCE PRN PRN Reason: Pre-medication for transfuse Last Admin: 09/23/18 11:18 Dose: 650 mg Acetylcysteine (Acetylcysteine 20%) 2 ml IH BID [facility] Last Admin: 09/26/18 07:58 Dose: 2 ml Albuterol/Ipratropium (Duoneb 3 Mg/0.5 Mg (3 Ml) Ud) 3 ml IH [id number] [facility] Last Admin: 09/26/18 07:59 Dose: 3 ml Arformoterol Tartrate (Brovana) 15 mcg IH [id number] [facility] Last Admin: 09/26/18 07:59 Dose: 15 mcg Aspirin (Aspirin Chewable) 81 mg PO DAILY [facility] Last Admin: 09/25/18 09:43 Dose: 81 mg Atorvastatin Calcium (Lipitor) 40 mg PO DIN [facility] Budesonide (Pulmicort Respules) 0.25 mg IH [id number] [facility] Last Admin: 09/26/18 07:59 Dose: 0.25 mg Dextrose (Dextrose 50% Inj) 0 ml IV STAT PRN; Protocol PRN Reason: Hypoglycemia Protocol Diphenhydramine HCl (Benadryl) 25 mg PO ONCE PRN PRN Reason: Pre-medication for transfusion Last Admin: 09/23/18 11:19 Dose: 25 mg Docusate Sodium (Colace) 200 mg PO TID [facility] Last Admin: 09/25/18 17:42 Dose: Not Given Enoxaparin Sodium (Lovenox) 40 mg SC DAILY [facility]; Protocol Last Admin: 09/25/18 09:42 Dose: 40 mg Ferrous Sulfate (Feosol) 324 mg PO BID [facility] Last Admin: 09/25/18 17:35 Dose: 324 mg Fludrocortisone Acetate (Florinef) 0.1 mg PO BID [facility] Last Admin: 09/25/18 17:35 Dose: 0.1 mg Glimepiride (Amaryl) 2 mg PO ACBD [facility] Last Admin: 09/26/18 08:25 Dose: 2 mg Trimethoprim/Sulfamethoxazole (240 mg/ Dextrose) 500 mls @ 166.667 mls/hr IVPB 0600 [facility]; Protocol Last Admin: 09/26/18 05:34 Dose: 166.667 mls/hr Dextrose (Dextrose 5% In Water 1000 Ml) 1,000 mls @ 0 mls/hr IV .Q0M PRN; Protocol PRN Reason: Hypoglycemia Protocol Insulin Detemir (Levemir) 6 unit SC HS [facility] Insulin Human Regular (Humulin R Low) 0 units SC ACHS [facility]; Protocol Levothyroxine Sodium (Synthroid) 50 mcg PO 0600 [facility] Last Admin: 09/26/18 05:35 Dose: 50 mcg Levothyroxine Sodium (Synthroid) 50 mcg PO ONCE ONE Stop: 09/26/18 14:54 Methylprednisolone (Solu-Medrol) 20 mg IVP DAILY [facility] Stop: 10/05/18 23:59 Metoprolol Tartrate (Lopressor) 25 mg PO BID [facility] Midodrine (Proamatine) 10 mg PO TID [facility] Last Admin: 09/25/18 17:35 Dose: 10 mg Mupirocin (Bactroban Ointment) 0 gm TOP BID [facility] Last Admin: 09/25/18 17:34 Dose: 1 applic Ondansetron HCl (Zofran Inj) 4 mg IVP Q6H PRN PRN Reason: Nausea/Vomiting Pantoprazole Sodium (Protonix Ec Tab) 40 mg PO DAILY [facility] Last Admin: 09/25/18 09:43 Dose: 40 mg Polyethylene Glycol (Miralax) 17 gm PO BID [facility] Last Admin: 09/25/18 17:42 Dose: Not Given Sodium Chloride (Sodium Chloride Tab) 1 gm PO BID [facility] Last Admin: 09/25/18 17:35 Dose: 1 gm Trimethoprim/Sulfamethoxazole (Bactrim Ds Tab) 2 tab PO 1400,2200 [facility]; Protocol Last Admin: 09/25/18 21:51 Dose: 2 tab - Labs Labs: 09/26/18 05:45 09/26/18 05:45 - Constitutional Appears: Non-toxic, No Acute Distress - Head Exam Head Exam: ATRAUMATIC, NORMOCEPHALIC - Eye Exam Eye Exam: EOMI, Normal appearance - ENT Exam ENT Exam: Mucous Membranes Moist - Neck Exam Neck Exam: absent: Lymphadenopathy, Thyromegaly - Respiratory Exam Respiratory Exam: Clear to Ausculation Bilateral, absent: Accessory Muscle Use, Rales, Rhonchi, Wheezes - Cardiovascular Exam Cardiovascular Exam: REGULAR RHYTHM, RRR, +S1, +S2 - GI/Abdominal Exam GI & Abdominal Exam: Soft, Normal Bowel Sounds - Extremities Exam Extremities Exam: Normal Capillary Refill, mild +1 edema BLE - Neurological Exam Additional comments: Awake, Alert - Psychiatric Exam Psychiatric exam: Normal Affect, Normal Mood - Skin Skin Exam: Dry, Warm Assessment and Plan - Assessment and Plan (Free Text) Assessment: 68 year old female with a PMH of NSCLC, colon cancer s/p resection, HLD, HTN, COPD, atril fibrillation, anemia of chronic disease, hypothyroidism, and morbid obesity who presented with complaint of shortness of breath s/p port-a-cath placement, with imaging concerning for PNA. Endocrine consulted for hyperglycemia while on steroids. Plan: 1. Uncontrolled Diabetes mellitus type 2 Likely 2/2 steroid use Last 24hrs glucose 108-230 Off postprandial insulin, doing well with levemir 6 SC HS and has not required coverage with RISS Continue accuchecks Switched to consistent carb diet Continue to monitor 2. Hypothyroidism Continue levothyroxine 50mcg PO QD Patient was seen and examined and case will be discussed with attending physician.
--- NOTE | 2018-09-26 10:18 | PN ---
DATE: 09/26/2018 PULMONARY PROGRESS NOTE REFERRING PHYSICIAN: Gerard Gibson MD SUBJECTIVE: The patient is lying in bed. No acute distress. No overnight events reports. The patient reports that she walked to the bathroom yesterday, did not have any dizziness, but was feeling very anxious in the moment and scared about falling. No headache, rhinitis, cough, shortness of breath, chest pain, abdominal pain, nausea, vomiting, or diarrhea. No leg pain reported. OBJECTIVE: VITAL SIGNS: Blood pressure 140/82, pulse 95, temperature 97.6, and oxygen saturation 97% on room air. GENERAL: No acute distress. HEENT: Moist mucous membranes. Crowded airway. Mallampati score of 4. NECK: Supple. No JVD. LUNGS: Rhonchi bilaterally. CARDIOVASCULAR: S1 and S2. ABDOMEN: Soft, nontender. No distention. No organomegaly. EXTREMITIES: Bilateral lower extremity edema is present and improving. NEUROLOGIC: Awake, alert, verbal. Follows commands. MEDICATIONS: Reviewed. Tylenol 650 every 4 hours p.r.n., Mucomyst 2 mL inhalation twice a day, DuoNeb 3 mL inhalation every 4 hours, Brovana 15 mcg every 12 hours, aspirin 81 mg daily, Lipitor 40 mg at dinner, Pulmicort 0.25 mg inhalation every 12 hours, Colace 200 mg three times a day, Lovenox 40 mg subcu daily, ferrous sulfate 324 mg twice a day, Florinef 0.1 mg twice a day, Amaryl 2 mg in the morning, Levemir 6 units at bedtime, Humulin R sliding scale before meals and at bedtime, Synthroid 50 mcg one time , synthroid 50mcg daily, Solu-Medrol 20 mg IV push daily, Lopressor 25 mg twice a day, midodrine 10 mg three times a day, Bactroban topically twice a day to affected area, Zofran 4 mg every 6 hours p.r.n., Protonix 40 mg daily, MiraLax 17 g twice a day, sodium chloride 1 g twice a day, Bactrim 240 mg daily, and Bactrim DS 2 tablets twice a day. LABORATORY DATA: Reviewed. WBC 7.3, RBC 3.79, hemoglobin 9.7, hematocrit 32, platelets 229. Sodium 132, potassium 4.1, chloride 101, carbon dioxide 30, anion gap 6, BUN 15, creatinine 0.7. GFR greater than 60. POC glucose 108, random glucose 65, calcium 8. Total bilirubin 0.3, AST 33, ALT 95, alkaline phosphatase 139, total protein 4.9, albumin 2.3, globulin 2.6, albumin-globulin ratio is 0.9. IMPRESSION AND PLAN: Lung cancer, chronic obstructive lung disease, gastroesophageal reflux disease, sleep apnea syndrome, hypothyroidism, pulmonary hypertension, anemia, obesity, hyponatremia, orthostatic hypotension, cardiac diastolic dysfunction. Pulmonary point of view, continue inhaled bronchodilators. Continue abdominal binder. Sky wraps to bilateral lower extremity for orthostatic hypotension precaution. Continue continuous positive airway pressure use at bedside, sleep apnea precaution, head of bed elevated at 45 degrees. Deep venous thrombosis prophylaxis, gastric prophylaxis, fall precautions. Continue fluid restrictions to 1200 mL today. We will discontinue Solu-Medrol 20 mg daily, and start the patient on prednisone 20 mg daily. Repeat laboratories in the morning. This patient was seen and examined with Dr. Feliz. Discussed assessment and plan as described above. This patient was seen and examined with Juan Richardson APN, nurse practitioner. Discussed assessment and plan as described above. Thank you for this consult. We will follow with you. Juan Richardson APN Hussein Feliz MD DAVID
[2018-09-26] MEDS: Insulin Reg-LOW-Coverage SC SCH ×3 (11:59→21:35)
--- NOTE | 2018-09-26 12:15 | CP.PCM.APN ---
Subjective - Date & Time of Evaluation Date of Evaluation: 09/27/18 Time of Evaluation: 10:45 - Subjective Subjective: Pt. seen and examined, sitting up in chair at bedside. Has respiratory treatment in process. States feels better, breathing is better. not as dizzy, states walked with PT, in the room, denied dizziness. Objective - Vital Signs/Intake and Output Vital Signs (last 24 hours): Temp Pulse Resp BP Pulse Ox 97.6 F 95 H 20 140/82 97 09/26/18 08:20 09/26/18 08:20 09/26/18 08:20 09/26/18 08:20 09/26/18 08:20 Intake and Output: 09/26/18 09/26/18 06:59 18:59 Intake Total 1638 Output Total 300 Balance 1338 - Medications Medications: Current Medications Acetaminophen (Tylenol 325mg Tab) 650 mg PO Q4 PRN PRN Reason: Pain, Mild (1-3) Last Admin: 09/23/18 21:50 Dose: 650 mg Acetaminophen (Tylenol 325mg Tab) 650 mg PO ONCE PRN PRN Reason: Pre-medication for transfuse Last Admin: 09/23/18 11:18 Dose: 650 mg Acetylcysteine (Acetylcysteine 20%) 2 ml IH BID [facility] Last Admin: 09/26/18 07:58 Dose: 2 ml Albuterol/Ipratropium (Duoneb 3 Mg/0.5 Mg (3 Ml) Ud) 3 ml IH [id number] [facility] Last Admin: 09/26/18 11:25 Dose: 3 ml Arformoterol Tartrate (Brovana) 15 mcg IH [id number] [facility] Last Admin: 09/26/18 07:59 Dose: 15 mcg Aspirin (Aspirin Chewable) 81 mg PO DAILY [facility] Last Admin: 09/26/18 09:58 Dose: 81 mg Atorvastatin Calcium (Lipitor) 40 mg PO DIN [facility] Budesonide (Pulmicort Respules) 0.25 mg IH [id number] [facility] Last Admin: 09/26/18 07:59 Dose: 0.25 mg Dextrose (Dextrose 50% Inj) 0 ml IV STAT PRN; Protocol PRN Reason: Hypoglycemia Protocol Diphenhydramine HCl (Benadryl) 25 mg PO ONCE PRN PRN Reason: Pre-medication for transfusion Last Admin: 09/23/18 11:19 Dose: 25 mg Docusate Sodium (Colace) 200 mg PO TID [facility] Last Admin: 09/26/18 09:59 Dose: Not Given Enoxaparin Sodium (Lovenox) 40 mg SC DAILY [facility]; Protocol Last Admin: 09/26/18 09:58 Dose: 40 mg Ferrous Sulfate (Feosol) 324 mg PO BID [facility] Last Admin: 09/26/18 09:58 Dose: 324 mg Fludrocortisone Acetate (Florinef) 0.1 mg PO BID [facility] Last Admin: 09/26/18 09:58 Dose: 0.1 mg Glimepiride (Amaryl) 2 mg PO ACBD [facility] Last Admin: 09/26/18 08:25 Dose: 2 mg Trimethoprim/Sulfamethoxazole (240 mg/ Dextrose) 500 mls @ 166.667 mls/hr IVPB 0600 [facility]; Protocol Last Admin: 09/26/18 05:34 Dose: 166.667 mls/hr Dextrose (Dextrose 5% In Water 1000 Ml) 1,000 mls @ 0 mls/hr IV .Q0M PRN; Protocol PRN Reason: Hypoglycemia Protocol Insulin Detemir (Levemir) 6 unit SC HS [facility] Insulin Human Regular (Humulin R Low) 0 units SC ACHS [facility]; Protocol Last Admin: 09/26/18 11:59 Dose: Not Given Levothyroxine Sodium (Synthroid) 50 mcg PO 0600 [facility] Last Admin: 09/26/18 05:35 Dose: 50 mcg Metoprolol Tartrate (Lopressor) 25 mg PO BID [facility] Midodrine (Proamatine) 10 mg PO TID [facility] Last Admin: 09/26/18 09:59 Dose: 10 mg Mupirocin (Bactroban Ointment) 0 gm TOP BID [facility] Last Admin: 09/26/18 09:57 Dose: 1 applic Ondansetron HCl (Zofran Inj) 4 mg IVP Q6H PRN PRN Reason: Nausea/Vomiting Pantoprazole Sodium (Protonix Ec Tab) 40 mg PO DAILY [facility] Last Admin: 09/26/18 09:58 Dose: 40 mg Polyethylene Glycol (Miralax) 17 gm PO BID [facility] Last Admin: 09/26/18 09:59 Dose: Not Given Prednisone (Prednisone Tab) 20 mg PO DAILY [facility] Sodium Chloride (Sodium Chloride Tab) 1 gm PO BID [facility] Last Admin: 09/26/18 09:58 Dose: 1 gm Trimethoprim/Sulfamethoxazole (Bactrim Ds Tab) 2 tab PO 1400,2200 [facility]; Protocol Last Admin: 09/25/18 21:51 Dose: 2 tab - Labs Labs: 09/26/18 05:45 09/26/18 05:45 - Constitutional Appears: Well, No Acute Distress - Head Exam Head Exam: NORMOCEPHALIC - Eye Exam Eye Exam: Normal appearance - ENT Exam ENT Exam: absent: Mucous Membranes Dry, Mucous Membranes Moist, Normal Exam, Normal External Ear Exam, Normal Oropharynx, TM's Normal Bilaterally - Neck Exam Neck Exam: Full ROM - Respiratory Exam Respiratory Exam: Clear to Ausculation Bilateral - Cardiovascular Exam Cardiovascular Exam: REGULAR RHYTHM, +S1, +S2 - GI/Abdominal Exam GI & Abdominal Exam: Soft, Normal Bowel Sounds - Rectal Exam Rectal Exam: Deferred - Exam Exam: absent: Circumcision, NORMAL INSPECTION, Scrotal Swelling, Testicular Tenderness, Uretheral Discharge, Testicular Vertical Lie, Bladder Distension External exam: absent: Ecchymosis, Erythema, Lacerations, Lesions, NORMAL EXTERNAL EXAM, Swelling Speculum exam: absent: Cervical Discharge, Erythema, Foreign Body, Laceration, NORMAL SPECULUM EXAM, Tissue, Vaginal Bleeding, Vaginal Discharge - Extremities Exam Extremities Exam: Full ROM Additional comments: b/l legs wrapped, b/l arms with edema and weeping noted. - Neurological Exam Neurological Exam: Alert, Awake, Oriented x3 - Psychiatric Exam Psychiatric exam: Normal Affect, Normal Mood - Skin Skin Exam: Dry, Intact Assessment and Plan - Assessment and Plan (Free Text) Assessment: Assessment: 68 year old female with a PMHx of unresectable stage III NSCLC with an ALK mutation, COPD, CHF, ASCVD, hx of colon cancer with resection stage 2, OK, AFib (now resolved), anemia of chronic disease, low vitamin D, obesity who presented with dizziness, worse , admitted from [facility], s/p portacath insertion to right [facility]. Plan: 1. Dizziness, Improved s/p portacath insertion -maybe r/t orthostatic hypotension improved cont. Florinef, Midodrine, Renal and card consulted 2. Unresectable Lung CA, Stage III completed RAdiation with Dr Sinha 3..Right Upper Lobe Infiltrate 2/2 Radiation Induced or Superimposed HCAP Cont. Antibx per I.D. 4.. COPD On Duonebs, Bronchodilators, Solumedrol tapering as per pulm. 5. Generalized Edema- likely secondary to Right Sided CHF 6. Hyponatremia- Improved, s/p Samsca 1 x dose.Fluid restriction advised. Will cont to monitor clinical status and follow closely. Will D/w with consultants, PMD. Pt recommended Home, with home PT, anticipate dC next 2 days.
--- NOTE | 2018-09-26 12:31 | PN ---
DATE: 09/26/2018 ENDO FOLLOWUP NOTE In room 366. SUBJECTIVE: This is a 68-year-old female with recent uncontrolled type 2 insulin-requiring diabetes now being followed closely for metabolic management. Her glycemic levels were low normal overnight as noted and the glucose values today have ranged from 108-175 mg/dL. Her chemistry showed a BUN of 15, sodium 132, potassium 4.1, chloride 91, CO2 of 30, glucose 65 and creatinine 0.7. So at this time, we will modify once again her basal insulin and lower the Levemir to 6 units subcu at bedtime daily to start tonight as ordered. We will continue the added oral hypoglycemic therapy given as Amaryl at 2 mg two times a day before meals to start today as ordered. We will modify the coverage scale to obviate hypoglycemia and detailed orders have been given for a low-dose correction scale using regular insulin as ordered. We will obtain serial chemistries and supplement accordingly needed. We will followup. Crystal Mcgregor MD
--- NOTE | 2018-09-26 14:16 | PN ---
DATE: 09/26/2018 SUBJECTIVE: The patient is actually seen ambulating around the room. She is working with the physical therapist. She is no longer significantly orthostatic. She remains on ProAmatine, Florinef, and sodium chloride. The patient does remain edematous. She anticipates going home on 09/28/2018. MEDICATIONS: Medication list reviewed. The patient is currently on acetylcysteine inhalation therapy, Amaryl, aspirin, Bactrim, mupirocin, Benadryl, Brovana, Colace, DuoNeb, Feosol, Florinef, sliding scale insulin, Levemir, Lovenox, MiraLax, prednisone, ProAmatine 10 mg three times a day, Protonix, Pulmicort Respules, sodium chloride 1 g twice a day, Levoxyl, Zofran and Tylenol p.r.n., Bactrim. OBJECTIVE: INTAKE/OUTPUT: Intake is 2776, output is 600. VITAL SIGNS: Blood pressure is 140/82, temperature 97.6, respiratory rate of 20 with a pulse of 95. HEENT: Exam shows her to be normocephalic, atraumatic. Conjunctivae are pale. Face is rounded. NECK: Supple. No neck vein distention. CHEST: Scattered bilateral rhonchi. No rales or wheezing. CARDIOVASCULAR: Regular rate and rhythm. Normal S1, S2. No audible murmurs. No rubs or gallops. ABDOMEN: Soft. Mild obesity. Bowel sounds normal. No rebound, guarding, or masses. EXTREMITIES: Show legs to be wrapped. She has 1+ pitting edema above the wrap site. She also has puffiness of her upper extremity with nonpitting edema. She does have a port in her right chest wall. LABORATORY DATA AND IMAGING: CBC: White blood cell count today is 7.3, hemoglobin stable 9.7, platelet count is 229,000. Chemistry show normal electrolytes. BUN 15 with a creatinine of 0.7. Glucose is 65. Calcium 8. Albumin level remains low at 2.3. Free T4 level is low with a low TSH level. Microbiology, no cultures were sent. ASSESSMENT: 1. Orthostatic hypotension, improved. The patient will remain on ProAmatine, Florinef, and sodium chloride. 2. History of recurrent hyponatremia. This is in the setting of hypervolemia plus a combination of syndrome of inappropriate secretion of antidiuretic hormone secondary to her lung cancer. Agree with intermittent use of tolvaptan. She did receive 15 mg yesterday with improvement in her sodium from 129 to 132. 3. Mild prerenal azotemia, this has resolved. 4. History of multi-lobe pneumonia. The patient is completing a course of antibiotic therapy. 5. History of stage IV [id number] lung cancer, being followed by Dr. Adames and Dr. Gibson. The patient has a port in place and will likely receive chemotherapy in the outpatient setting. 6. Past history of colon cancer. 7. History of mild hyperlipidemia, currently statins are on hold. 8. History of anemia secondary to underlying malignancy. Hemoglobin stable at 9.7. 9. History of arteriosclerotic heart disease with paroxysmal atrial fibrillation. The patient appears to be in a regular rhythm at this point in time. 10. History of chronic obstructive pulmonary disease, currently stable, on inhalation therapy. PLAN: 1. Continue present medications as noted above. 2. Try and avoid use of diuretics for treatment of her lower extremity edema, as this will likely exacerbate her hyponatremia. 3. We will continue to monitor labs closely throughout the remainder of the hospitalization. The patient may receive an additional dose of tolvaptan if her sodium level drops below 130 in preparation for discharge. 4. Discussed with the patient in detail, discussed with staff on 3R. Romeo Richards MD
[2018-09-26] MEDS: Tmp-Smz 800 mg-160 mg DS Tab PO SCH ×2 (14:19→21:14)
--- NOTE | 2018-09-26 14:52 | CP.PCM.PN ---
Subjective - Date & Time of Evaluation Date of Evaluation: 09/26/18 Time of Evaluation: 10:20 - Subjective Subjective: No fevers, not in distress, breathing better, still anxious about her physical therapy today. No diarrhea. Objective - Vital Signs/Intake and Output Vital Signs (last 24 hours): Temp Pulse Resp BP Pulse Ox 97.3 F L 97 H 21 150/86 95 09/25/18 08:07 09/25/18 10:00 09/25/18 08:07 09/25/18 08:07 09/25/18 08:07 Intake and Output: 09/25/18 09/25/18 06:59 18:59 Intake Total 1430 Output Total 1475 Balance -45 - Medications Medications: Current Medications Acetaminophen (Tylenol 325mg Tab) 650 mg PO Q4 PRN PRN Reason: Pain, Mild (1-3) Last Admin: 09/23/18 21:50 Dose: 650 mg Acetaminophen (Tylenol 325mg Tab) 650 mg PO ONCE PRN PRN Reason: Pre-medication for transfuse Last Admin: 09/23/18 11:18 Dose: 650 mg Acetylcysteine (Acetylcysteine 20%) 2 ml IH BID [facility] Last Admin: 09/25/18 08:15 Dose: 2 ml Albuterol/Ipratropium (Duoneb 3 Mg/0.5 Mg (3 Ml) Ud) 3 ml IH [id number] [facility] Last Admin: 09/25/18 11:00 Dose: 3 ml Arformoterol Tartrate (Brovana) 15 mcg IH [id number] [facility] Last Admin: 09/25/18 08:18 Dose: 15 mcg Aspirin (Aspirin Chewable) 81 mg PO DAILY [facility] Last Admin: 09/25/18 09:43 Dose: 81 mg Atorvastatin Calcium (Lipitor) 40 mg PO DIN [facility] Budesonide (Pulmicort Respules) 0.25 mg IH [id number] [facility] Last Admin: 09/25/18 08:18 Dose: 0.25 mg Dextrose (Dextrose 50% Inj) 0 ml IV STAT PRN; Protocol PRN Reason: Hypoglycemia Protocol Diphenhydramine HCl (Benadryl) 25 mg PO ONCE PRN PRN Reason: Pre-medication for transfusion Last Admin: 09/23/18 11:19 Dose: 25 mg Docusate Sodium (Colace) 200 mg PO TID [facility] Last Admin: 09/25/18 14:05 Dose: Not Given Enoxaparin Sodium (Lovenox) 40 mg SC DAILY [facility]; Protocol Last Admin: 09/25/18 09:42 Dose: 40 mg Ferrous Sulfate (Feosol) 324 mg PO BID [facility] Last Admin: 09/25/18 09:43 Dose: 324 mg Fludrocortisone Acetate (Florinef) 0.1 mg PO BID [facility] Last Admin: 09/25/18 09:43 Dose: 0.1 mg Trimethoprim/Sulfamethoxazole (240 mg/ Dextrose) 500 mls @ 166.667 mls/hr IVPB 0600 [facility]; Protocol Last Admin: 09/25/18 06:08 Dose: 166.667 mls/hr Dextrose (Dextrose 5% In Water 1000 Ml) 1,000 mls @ 0 mls/hr IV .Q0M PRN; Protocol PRN Reason: Hypoglycemia Protocol Insulin Detemir (Levemir) 8 unit SC HS [facility] Last Admin: 09/24/18 21:34 Dose: 8 units Insulin Human Lispro (Humalog Low) 0 units SC ACHS [facility]; Protocol Last Admin: 09/25/18 11:33 Dose: Not Given Levothyroxine Sodium (Synthroid) 50 mcg PO 0600 [facility] Methylprednisolone (Solu-Medrol) 20 mg IVP DAILY [facility] Stop: 10/05/18 23:59 Metoprolol Tartrate (Lopressor) 25 mg PO BID [facility] Midodrine (Proamatine) 10 mg PO TID [facility] Last Admin: 09/25/18 09:47 Dose: 10 mg Mupirocin (Bactroban Ointment) 0 gm TOP BID [facility] Ondansetron HCl (Zofran Inj) 4 mg IVP Q6H PRN PRN Reason: Nausea/Vomiting Pantoprazole Sodium (Protonix Ec Tab) 40 mg PO DAILY [facility] Last Admin: 09/25/18 09:43 Dose: 40 mg Polyethylene Glycol (Miralax) 17 gm PO BID [facility] Last Admin: 09/25/18 10:03 Dose: Not Given Sodium Chloride (Sodium Chloride Tab) 1 gm PO BID [facility] Last Admin: 09/25/18 09:43 Dose: 1 gm Trimethoprim/Sulfamethoxazole (Bactrim Ds Tab) 2 tab PO BID [facility]; Protocol Stop: 10/02/18 18:01 - Labs Labs: 09/25/18 06:00 09/25/18 06:00 - Constitutional Appears: Chronically Ill - Head Exam Head Exam: NORMAL INSPECTION - Respiratory Exam Respiratory Exam: Decreased Breath Sounds - Cardiovascular Exam Cardiovascular Exam: +S1, +S2 - GI/Abdominal Exam GI & Abdominal Exam: Soft. absent: Tenderness Assessment and Plan - Assessment and Plan (Free Text) Plan: Assessment bilteral alveolar infiltrates, consider atypical pneumonia; beta glucan positive, which is very suggestive of Pneumocystis; clinically improving new onset leukocytosis R/O new onset sepsis history of probable right sided HCAP associated with lung mass lung cancer, non-small cell, stage 4 morbid obesity with BMI 40 dyslipidemia colon cancer Plan continue Bactrim IV and PO day 15 for 14-21 days but on discussion with Dr. Jang, she is fluid-restricted - will keep the morning dose of Bactrim IV, then the 2pm dose and 10 pm doses Bactrim DS PO - will follow up ABG to see if her oxygenation is better and if it is, we can switch to Mepron Overall prognosis is poor will continue to monitor clinically repeat cultures are negative discussed with Dr. Adames previously - after her course of PJP treatment, she needs to be on PJP prophylaxis with PO Bactrim 1 tab DS 3x weekly
[2018-09-26] MEDS ORDERED: Levothyroxine 50 MCG TAB PO ONE (14:53)
[2018-09-26] MEDS ORDERED: Insulin Detemir 100 units/ml Vial (Levemir) SC SCH (22:00)
[2018-09-26] MEDS ORDERED: Acetylcysteine 20% Inhal Soln (4ml) IH SCH (22:07)
--- NOTE | 2018-09-27 02:18 | PN ---
DATE: 09/26/2018 ONCOLOGY PROGRESS NOTE LOCATION: The patient is in room 366, bed 1. PROBLEM: This is a 68-year-old female with stage III non-small cell carcinoma of the lung (adenocarcinoma of the lung), currently completed RT to the right mainstem and right middle and lower lobe bronchus for obstructive disease. While on crizotinib, which is ROS1 inhibitor selective therapy and during the course of her treatment, the patient also developed progressive shortness of breath related to multifocal lobar pneumonia, probably related to long-term steroid that she has been on intermittently over the last 3 months. The patient was started empirically on IV Bactrim and has improved during the course of her hospital stay. The patient was transferred to [facility] for deconditioning. While there, the patient become orthostatic and hypotensive from exuberant diuretic therapy given for her lower extremity edema which in turn was caused by steroid and IV infusions. After dose adjustments and the patient's breathing got improved, steroids will be able to cut back. The patient is now being switched over from IV Bactrim to p.o. Bactrim which will continue until and then she will be kept on prophylactic Bactrim three times a week, the prednisone will be tapered gradually over the next few weeks. In the acute side, the patient has had continued problems with orthostasis for which she had an abdominal binder. She has had ankle wrap and she was seen by Renal for fluid and electrolyte balance and she has gotten selectively tolvaptan for hyponatremia. In addition to that, the patient been placed on Florinef and midodrine along with sodium bicarbonate tablet and these together helped the patient immensely. Subjectively, the patient has been ambulating in the room with a physical therapist, she is not as orthostatic and lightheaded as she was 5 days ago. She anticipates going home by the which is tomorrow. MEDICATIONS: Reviewed. The patient is currently on acetylcysteine therapy, Amaryl, aspirin, Bactrim, mupirocin, Benadryl, Brovana, Colace, DuoNeb, Feosol, Florinef, sliding scale insulin, Levemir, Lovenox, MiraLax, prednisone, ProAmatine 10 mg three times a day, Protonix, Pulmicort Respules, sodium chloride 1 g twice a day, Levoxyl, Zofran, and Tylenol p.r.n. along with p.o. Bactrim. PHYSICAL EXAMINATION: GENERAL: The patient is awake, alert, oriented, in no significant distress. VITAL SIGNS: Blood pressure is 140/82, T-max is 98.4, respirations 20 with a pulse ox of 96% on 2 liters of oxygen. Intake is 2776, output is 600. HEENT: Head is normocephalic, atraumatic. Conjunctivae pale. Sclerae are anicteric. Pupils are equally reactive to light and accommodation. The patient has steroid facies secondary to her steroids. NECK: Supple. There is no adenopathy. LUNGS: Reveal bilateral rhonchi. No rales or wheezing. CARDIOVASCULAR: Reveals PMI to be in the fifth intercostal space inside the midclavicular line. S1 and S2 are normal. No gallop or murmur is heard. ABDOMEN: Soft, protuberant, nontender. No rebound, rigidity or guarding is noted. Bowel sounds are adequate. EXTREMITIES: Wrapped in Sky wrap. She has 1+ pitting edema above the wraps. She has also puffiness of both upper extremities, which she has had some weeping from a few sites on the arm that she has had previous blood draws. The patient does have a port in the right chest wall which was put in recently, a couple of days ago, it has been accessed and has been working well. LABORATORY DATA: Reveals a white count of 7.3, hemoglobin 9.7, platelet count is 229, this is after 2 units of blood given 2 days ago. Chemistry shows BUN of 15, creatinine of 0.7, glucose of 55, calcium is 8, albumin levels remain low at 2.3, free T4 is low with a low TSH. No cultures have been recently sent. ASSESSMENT, NOTES AND PLAN: The patient has stage IIIB non-small cell carcinoma of the lung, completed radiation primarily over a period of 6 weeks without much interruption, along with crizotinib, radiation completed about a week ago. The patient developed multifocal lobar pneumonia for which she has been empirically treated with Bactrim. The assumption is pneumocystis and the patient's symptoms slightly improved with a followup CAT scan showing significant clearing of the infiltrates and the lung mass itself is smaller. Orthostatic hypotension which appears to be improving with a combination of events including ProAmatine, Florinef and also intermittent tolvaptan. Renal azotemia appears to be improved. The patient has a past history of stage III CA of the colon which did not require any therapy based on Oncotype DX Assay testing. Lymph nodes are negative. History of mild hyperlipidemia; history of diabetes mellitus related to steroids; anemia secondary to cancer; atherosclerotic heart disease with paroxysmal atrial fibrillation, currently in sinus rhythm; history of chronic obstructive pulmonary disease, currently stable on inhalation therapy. PLAN: She is going to continue on current medications. The patient may need intermittent tolvaptan if her sodium continues to go down. We will continue to monitor her labs very carefully. Once she is discharged, we will have labs drawn on her at least 2-3 times a week and follow her in the office at least once a week. I have discussed the findings in detail with the patient and we will also speak to the rest of the family members, so we will make plan accordingly. This is a complex patient with multiple comorbid medical issues. Time spent is greater than 45 minutes in collating all the information and discussing the treatment plan. We will also check with all the various consultants including the refrigeration technician for what meds the patient needs to go home on. Gabby Adames MD
[2018-09-27] MEDS: Albuterol-Ipratrop 3 mg / 0.5 (3 ml) UD IH SCH ×4 (04:35→15:20)
[2018-09-27] MEDS: Levothyroxine 50 MCG TAB PO SCH (05:31)
[2018-09-27 06:07] LABS: HEMOGLOBIN 9.6 g/dL (12.0-16.0); MEAN CELL VOLUME 86.4 fl (80.0-105.0); MEAN CORPUSCULAR HEMOGLOBIN 26.1 pg (25.0-35.0); MEAN CORPUSCULAR HGB CONC 30.2 g/dl (31.0-37.0); MEAN PLATELET VOLUME 9.1 fl (7.0-11.0); RBC 3.68 10^6/uL (3.5-6.1); RED CELL DISTRIBUTION WIDTH 24.1 % (11.5-14.5); WHITE BLOOD COUNT 7.3 10^3/uL (4.5-11.0)
[2018-09-27 06:19] LABS: ALB/GLOB RATIO 0.9 (1.1-1.8); ALBUMIN 2.4 g/dL (3.0-4.8); ALT/SGPT 88 U/L (7-56); AST/SGOT 38 U/L (14-36); BLOOD UREA NITROGEN 15 mg/dL (7-21); CALCIUM 8.1 mg/dL (8.4-10.5); GFR NON-AFRICAN AMERICAN > 60
--- NOTE | 2018-09-27 07:01 | CP.PCM.PN ---
Subjective - Date & Time of Evaluation Date of Evaluation: 09/27/18 Time of Evaluation: 06:38 - Subjective Subjective: Andriy Tran D.O. PGY-3, Internal Medicine Resident, Endocrinology Progress Note 68 year old female with a PMH of NSCLC, colon cancer s/p resection, HLD, HTN, COPD, atril fibrillation, anemia of chronic disease, hypothyroidism, and morbid obesity who presented with complaint of shortness of breath s/p port-a-cath placement, with imaging concerning for PNA. Endocrine consulted for hyperglycemia while on steroids. Patient was seen and examined at bedside. States able to ambulate a little more. No issues with breathing except when walking. No other major complaints. Objective - Vital Signs/Intake and Output Vital Signs (last 24 hours): Temp Pulse Resp BP Pulse Ox 97.8 F 80 20 105/67 95 09/26/18 17:00 09/27/18 06:00 09/26/18 17:00 09/26/18 17:00 09/26/18 17:00 - Medications Medications: Current Medications Acetaminophen (Tylenol 325mg Tab) 650 mg PO Q4 PRN PRN Reason: Pain, Mild (1-3) Last Admin: 09/23/18 21:50 Dose: 650 mg Acetaminophen (Tylenol 325mg Tab) 650 mg PO ONCE PRN PRN Reason: Pre-medication for transfuse Last Admin: 09/23/18 11:18 Dose: 650 mg Acetylcysteine (Acetylcysteine 20%) 2 ml IH BIDRESP JOHN Albuterol/Ipratropium (Duoneb 3 Mg/0.5 Mg (3 Ml) Ud) 3 ml IH [id number] [facility] Last Admin: 09/27/18 04:35 Dose: Not Given Arformoterol Tartrate (Brovana) 15 mcg IH [id number] [facility] Last Admin: 09/26/18 19:30 Dose: 15 mcg Aspirin (Aspirin Chewable) 81 mg PO DAILY [facility] Last Admin: 09/26/18 09:58 Dose: 81 mg Atorvastatin Calcium (Lipitor) 40 mg PO DIN JOHN Budesonide (Pulmicort Respules) 0.25 mg IH [id number] [facility] Last Admin: 09/26/18 19:30 Dose: 0.25 mg Dextrose (Dextrose 50% Inj) 0 ml IV STAT PRN; Protocol PRN Reason: Hypoglycemia Protocol Diphenhydramine HCl (Benadryl) 25 mg PO ONCE PRN PRN Reason: Pre-medication for transfusion Last Admin: 09/23/18 11:19 Dose: 25 mg Docusate Sodium (Colace) 200 mg PO TID [facility] Last Admin: 09/26/18 18:14 Dose: Not Given Enoxaparin Sodium (Lovenox) 40 mg SC DAILY [facility]; Protocol Last Admin: 09/26/18 09:58 Dose: 40 mg Ferrous Sulfate (Feosol) 324 mg PO BID [facility] Last Admin: 09/26/18 17:08 Dose: 324 mg Fludrocortisone Acetate (Florinef) 0.1 mg PO BID [facility] Last Admin: 09/26/18 17:08 Dose: 0.1 mg Glimepiride (Amaryl) 2 mg PO ACBD [facility] Last Admin: 09/26/18 17:08 Dose: 2 mg Dextrose (Dextrose 5% In Water 1000 Ml) 1,000 mls @ 0 mls/hr IV .Q0M PRN; Protocol PRN Reason: Hypoglycemia Protocol Insulin Detemir (Levemir) 6 unit SC HS [facility] Last Admin: 09/26/18 21:13 Dose: 6 units Insulin Human Regular (Humulin R Low) 0 units SC ACHS [facility]; Protocol Last Admin: 09/26/18 21:35 Dose: Not Given Levothyroxine Sodium (Synthroid) 50 mcg PO 0600 [facility] Last Admin: 09/27/18 05:31 Dose: 50 mcg Metoprolol Tartrate (Lopressor) 25 mg PO BID [facility] Midodrine (Proamatine) 10 mg PO TID [facility] Last Admin: 09/26/18 17:08 Dose: 10 mg Mupirocin (Bactroban Ointment) 0 gm TOP BID [facility] Last Admin: 09/26/18 17:07 Dose: 1 applic Ondansetron HCl (Zofran Inj) 4 mg IVP Q6H PRN PRN Reason: Nausea/Vomiting Pantoprazole Sodium (Protonix Ec Tab) 40 mg PO DAILY [facility] Last Admin: 09/26/18 09:58 Dose: 40 mg Polyethylene Glycol (Miralax) 17 gm PO BID [facility] Last Admin: 09/26/18 18:14 Dose: Not Given Prednisone (Prednisone Tab) 20 mg PO DAILY [facility] Sodium Chloride (Sodium Chloride Tab) 1 gm PO BID [facility] Last Admin: 09/26/18 17:07 Dose: 1 gm Trimethoprim/Sulfamethoxazole (Bactrim Ds Tab) 2 tab PO 1400,2200 JOHN; Protocol Last Admin: 09/26/18 21:14 Dose: 2 tab - Labs Labs: 09/27/18 05:45 09/27/18 05:45 - Constitutional Appears: Non-toxic, No Acute Distress - Head Exam Head Exam: ATRAUMATIC, NORMOCEPHALIC - Eye Exam Eye Exam: EOMI, Normal appearance - ENT Exam ENT Exam: Mucous Membranes Moist, Normal Oropharynx - Neck Exam Neck Exam: absent: Lymphadenopathy, Thyromegaly - Respiratory Exam Respiratory Exam: Clear to Ausculation Bilateral, absent: Accessory Muscle Use, Rales, Rhonchi, Wheezes - Cardiovascular Exam Cardiovascular Exam: RRR, +S1, +S2 - GI/Abdominal Exam GI & Abdominal Exam: Soft, Normal Bowel Sounds, Non-Distended - Extremities Exam Extremities Exam: Normal Capillary Refill, mild +1 edema BLE - Neurological Exam Additional comments: Awake, Alert, Oriented x3 - Psychiatric Exam Psychiatric exam: Normal Affect, Normal Mood - Skin Skin Exam: Dry, Warm Assessment and Plan - Assessment and Plan (Free Text) Assessment: 68 year old female with a PMH of NSCLC, colon cancer s/p resection, HLD, HTN, COPD, atril fibrillation, anemia of chronic disease, hypothyroidism, and morbid obesity who presented with complaint of shortness of breath s/p port-a-cath placement, with imaging concerning for PNA. Endocrine consulted for hypergly cemia while on steroids. Plan: 1. Uncontrolled Diabetes mellitus type 2 Likely nursing home use of steroids medications Last 24hrs glucose 108-252, has stayed consistent Started on glimepride 2 ACBD Continue with levemir 6 SC HS Still not requiring coverage with RISS Continue accuchecks Continue consistent carb diet Continue to monitor 2. Hypothyroidism Continue levothyroxine 50mcg PO QD Patient was seen and examined and case will be discussed with attending physician.
[2018-09-27] MEDS: Arformoterol 15 mcg/2 ml Inh Sol IH SCH (08:30)
[2018-09-27] MEDS: Budesonide 0.25 mg/2 ml Inhal Susp UD IH SCH (08:32)
[2018-09-27] MEDS: Insulin Reg-LOW-Coverage SC SCH ×3 (08:33→17:45)
[2018-09-27] MEDS: Mupirocin 2% Ointment 15 GM TUBE TOP SCH ×2 (09:39→17:43)
[2018-09-27] MEDS: POLYETHYLENE GLYCOL 3350 17 GM/Dose PACKET PO SCH ×2 (09:40→17:45)
[2018-09-27] MEDS: Enoxaparin 40 mg Syringe SC SCH (09:40)
[2018-09-27] MEDS: Pantoprazole 40 mg EC Tab PO SCH (09:41)
--- NOTE | 2018-09-27 12:52 | PN ---
DATE: 09/27/2018 PULMONARY PROGRESS NOTE REFERRING PHYSICIAN: Gerard Gibson MD SUBJECTIVE: The patient is sitting up in bed. No acute distress. No overnight events reported. Wore a CPAP machine last night. The patient does report having some shortness of breath with exertion. No cough. No headache. No rhinitis. No chest pain, abdominal pain, nausea, vomiting, diarrhea or leg pain reported. The patient still has leg edema. PHYSICAL EXAMINATION: GENERAL: No acute distress. VITAL SIGNS: Blood pressure 135/87, pulse 94, temperature 97.3, oxygen saturation 93 on nasal cannula. HEENT: Moist mucous membranes. Mallampati score of 4. Crowded airway. NECK: Supple. No JVD. LUNGS: Rhonchi bilaterally. CARDIOVASCULAR: S1 and S2. ABDOMEN: Soft, nontender. No distention. No organomegaly. EXTREMITIES: Bilateral lower extremity edema. NEUROLOGIC: Awake, alert, verbal. Follows commands. MEDICATIONS: Reviewed. Tylenol 650 every 4 hours p.r.n. mild pain, Mucomyst 2 mL inhalation twice a day, DuoNeb 3 mL inhalation every 4 hours, Brovana 15 mcg every 12 hours, aspirin 81 mg daily, Lipitor 40 mg with dinner, Pulmicort 0.25 mg inhalation every 12 hours, Colace 200 mg three times a day, Lovenox 40 mg subcutaneous daily, ferrous sulfate 324 mg twice a day, Florinef 0.1 mg twice a day, glimepiride 2 mg in the morning, Levemir 6 units subcutaneous at bedtime, Humulin R sliding scale before meals and at bedtime, Synthroid 50 mcg daily, metoprolol tartrate 25 mg twice a day, midodrine 10 mg three times a day, Bactroban topically twice a day to affected area, Zofran 4 mg every 6 hours p.r.n., Protonix 40 mg daily, MiraLax 17 g twice a day, prednisone 20 mg daily, sodium chloride tablet 1 g twice a day, and Bactrim DS 2 tablets twice a day. LABORATORY DATA: Reviewed. WBC 7.3, RBC 3.6, hemoglobin 9.6, hematocrit 31.8, platelets 199. Sodium 135, potassium 4.3, chloride 104, carbon dioxide 29, anion gap 7, BUN 15, creatinine 0.6, GFR greater than 60, POC glucose 67, random glucose 72, calcium 8.1, phosphorus 3.3, magnesium 1.9, total bilirubin 0.3, AST 38, ALT 80, alkaline phosphatase 137, total protein 5.1, albumin 2.7, globulin 2.7, albumin-globulin ratio 0.9. IMPRESSION AND PLAN: Lung cancer, chronic obstructive lung disease, gastroesophageal reflux disease, sleep apnea syndrome, hypothyroidism, pulmonary hypertension, anemia, obesity, hyponatremia, orthostatic hypotension, cardiac diastolic dysfunction. Pulmonary point of view, continue inhaled bronchodilators. Continue abdominal binder. Sky wraps to bilateral lower extremities for orthostatic hypotension precaution. Continue continuous positive airway pressure use at bedtime, sleep apnea precaution, head of bed elevated at 45 degrees. Deep venous thrombosis prophylaxis, gastric prophylaxis, fall precautions. Continue prednisone 20 mg daily, tapering steroids over the next 10 days. We will change sodium chloride 1 g tablet to daily. Repeat laboratories tomorrow morning. The patient possible for discharge home. We will give prescription for DuoNeb one vial via nebulizer every 6 hours [id number] and for nebulizer machine. The patient will need full pulmonary function test to assess lung function as outpatient. This patient was seen and examined with Dr. Feliz. Discussed assessment and plan as described above. This patient was seen and examined with Juan Richardson, nurse practitioner. Discussed assessment and plan as described above. Thank you for this consult. We will follow with you. Juan Richardson APN Hussein Feliz MD DAVID
--- NOTE | 2018-09-27 13:31 | CP.PCM.PN ---
Subjective - Date & Time of Evaluation Date of Evaluation: 09/27/18 Time of Evaluation: 11:00 - Subjective Subjective: As per patient, her physical therapy went well yesterday and did not feel dizzy or lightheaded. Denies fevers or chills, no nausea, no diarrhea, no SOB at rest. Objective - Vital Signs/Intake and Output Vital Signs (last 24 hours): Temp Pulse Resp BP Pulse Ox 97.6 F 105 H 20 140/82 97 09/26/18 08:20 09/26/18 10:00 09/26/18 08:20 09/26/18 08:20 09/26/18 08:20 Intake and Output: 09/26/18 09/26/18 06:59 18:59 Intake Total 1638 Output Total 300 Balance 1338 - Medications Medications: Current Medications Acetaminophen (Tylenol 325mg Tab) 650 mg PO Q4 PRN PRN Reason: Pain, Mild (1-3) Last Admin: 09/23/18 21:50 Dose: 650 mg Acetaminophen (Tylenol 325mg Tab) 650 mg PO ONCE PRN PRN Reason: Pre-medication for transfuse Last Admin: 09/23/18 11:18 Dose: 650 mg Acetylcysteine (Acetylcysteine 20%) 2 ml IH BID [facility] Last Admin: 09/26/18 07:58 Dose: 2 ml Albuterol/Ipratropium (Duoneb 3 Mg/0.5 Mg (3 Ml) Ud) 3 ml IH [id number] [facility] Last Admin: 09/26/18 11:25 Dose: 3 ml Arformoterol Tartrate (Brovana) 15 mcg IH [id number] [facility] Last Admin: 09/26/18 07:59 Dose: 15 mcg Aspirin (Aspirin Chewable) 81 mg PO DAILY [facility] Last Admin: 09/26/18 09:58 Dose: 81 mg Atorvastatin Calcium (Lipitor) 40 mg PO DIN [facility] Budesonide (Pulmicort Respules) 0.25 mg IH [id number] [facility] Last Admin: 09/26/18 07:59 Dose: 0.25 mg Dextrose (Dextrose 50% Inj) 0 ml IV STAT PRN; Protocol PRN Reason: Hypoglycemia Protocol Diphenhydramine HCl (Benadryl) 25 mg PO ONCE PRN PRN Reason: Pre-medication for transfusion Last Admin: 09/23/18 11:19 Dose: 25 mg Docusate Sodium (Colace) 200 mg PO TID [facility] Last Admin: 09/26/18 14:22 Dose: Not Given Enoxaparin Sodium (Lovenox) 40 mg SC DAILY [facility]; Protocol Last Admin: 09/26/18 09:58 Dose: 40 mg Ferrous Sulfate (Feosol) 324 mg PO BID [facility] Last Admin: 09/26/18 09:58 Dose: 324 mg Fludrocortisone Acetate (Florinef) 0.1 mg PO BID [facility] Last Admin: 09/26/18 09:58 Dose: 0.1 mg Glimepiride (Amaryl) 2 mg PO ACBD [facility] Last Admin: 09/26/18 08:25 Dose: 2 mg Trimethoprim/Sulfamethoxazole (240 mg/ Dextrose) 500 mls @ 166.667 mls/hr IVPB 0600 [facility]; Protocol Last Admin: 09/26/18 05:34 Dose: 166.667 mls/hr Dextrose (Dextrose 5% In Water 1000 Ml) 1,000 mls @ 0 mls/hr IV .Q0M PRN; Protocol PRN Reason: Hypoglycemia Protocol Insulin Detemir (Levemir) 6 unit SC HS [facility] Insulin Human Regular (Humulin R Low) 0 units SC ACHS [facility]; Protocol Last Admin: 09/26/18 11:59 Dose: Not Given Levothyroxine Sodium (Synthroid) 50 mcg PO 0600 [facility] Last Admin: 09/26/18 05:35 Dose: 50 mcg Metoprolol Tartrate (Lopressor) 25 mg PO BID [facility] Midodrine (Proamatine) 10 mg PO TID [facility] Last Admin: 09/26/18 14:19 Dose: 10 mg Mupirocin (Bactroban Ointment) 0 gm TOP BID [facility] Last Admin: 09/26/18 09:57 Dose: 1 applic Ondansetron HCl (Zofran Inj) 4 mg IVP Q6H PRN PRN Reason: Nausea/Vomiting Pantoprazole Sodium (Protonix Ec Tab) 40 mg PO DAILY [facility] Last Admin: 09/26/18 09:58 Dose: 40 mg Polyethylene Glycol (Miralax) 17 gm PO BID [facility] Last Admin: 09/26/18 09:59 Dose: Not Given Prednisone (Prednisone Tab) 20 mg PO DAILY [facility] Sodium Chloride (Sodium Chloride Tab) 1 gm PO BID [facility] Last Admin: 02/12/19 09:58 Dose: 1 gm Trimethoprim/Sulfamethoxazole (Bactrim Ds Tab) 2 tab PO 1400,2200 [facility]; Protocol Last Admin: 09/26/18 14:19 Dose: 2 tab - Labs Labs: 09/26/18 05:45 09/26/18 05:45 - Constitutional Appears: Chronically Ill - Head Exam Head Exam: NORMAL INSPECTION - Respiratory Exam Respiratory Exam: Decreased Breath Sounds - Cardiovascular Exam Cardiovascular Exam: +S1, +S2 - GI/Abdominal Exam GI & Abdominal Exam: Soft. absent: Tenderness - Extremities Exam Additional comments: both lower extremities with bandages in place Assessment and Plan - Assessment and Plan (Free Text) Plan: Assessment bilteral alveolar infiltrates, consider atypical pneumonia; beta glucan positive, which is very suggestive of Pneumocystis; clinically improving new onset leukocytosis R/O new onset sepsis history of probable right sided HCAP associated with lung mass lung cancer, non-small cell, stage 4 morbid obesity with BMI 40 dyslipidemia colon cancer Plan continue Bactrim IV and PO day 16 for 14-21 days but on discussion with Dr. Jang, she is fluid-restricted - will keep the morning dose of Bactrim IV, then the 2pm dose and 10 pm doses Bactrim DS PO Overall prognosis is poor will continue to monitor clinically repeat cultures are negative discussed with Dr. Adames previously - after her course of PJP treatment, she needs to be on PJP prophylaxis with PO Bactrim 1 tab DS 3x weekly
--- NOTE | 2018-09-27 14:21 | CP.PCM.APN ---
Subjective - Date & Time of Evaluation Date of Evaluation: 09/27/18 Time of Evaluation: 10:45 - Subjective Subjective: Pt. seen and examined, sitting up in chair, states breathing is better, denied dizziness,denied chest discomfort. States is waiting for physical therapist to walk. Objective - Vital Signs/Intake and Output Vital Signs (last 24 hours): Temp Pulse Resp BP Pulse Ox 97.3 F L 104 H 21 135/87 93 L 09/27/18 06:00 09/27/18 10:00 09/27/18 06:00 09/27/18 06:00 09/27/18 06:00 Intake and Output: 09/27/18 09/27/18 06:59 18:59 Intake Total 120 Output Total 300 Balance -180 - Medications Medications: Current Medications Acetaminophen (Tylenol 325mg Tab) 650 mg PO Q4 PRN PRN Reason: Pain, Mild (1-3) Last Admin: 09/23/18 21:50 Dose: 650 mg Acetaminophen (Tylenol 325mg Tab) 650 mg PO ONCE PRN PRN Reason: Pre-medication for transfuse Last Admin: 09/23/18 11:18 Dose: 650 mg Acetylcysteine (Acetylcysteine 20%) 2 ml IH BIDRESP [facility] Last Admin: 09/27/18 08:31 Dose: 2 ml Albuterol/Ipratropium (Duoneb 3 Mg/0.5 Mg (3 Ml) Ud) 3 ml IH [id number] [facility] Last Admin: 09/27/18 11:19 Dose: 3 ml Arformoterol Tartrate (Brovana) 15 mcg IH [id number] [facility] Last Admin: 09/27/18 08:30 Dose: 15 mcg Aspirin (Aspirin Chewable) 81 mg PO DAILY [facility] Last Admin: 09/27/18 09:39 Dose: 81 mg Atorvastatin Calcium (Lipitor) 40 mg PO DIN [facility] Budesonide (Pulmicort Respules) 0.25 mg IH [id number] [facility] Last Admin: 09/27/18 08:32 Dose: 0.25 mg Dextrose (Dextrose 50% Inj) 0 ml IV STAT PRN; Protocol PRN Reason: Hypoglycemia Protocol Diphenhydramine HCl (Benadryl) 25 mg PO ONCE PRN PRN Reason: Pre-medication for transfusion Last Admin: 09/23/18 11:19 Dose: 25 mg Docusate Sodium (Colace) 200 mg PO TID [facility] Last Admin: 09/27/18 09:40 Dose: 200 mg Enoxaparin Sodium (Lovenox) 40 mg SC DAILY [facility]; Protocol Last Admin: 09/27/18 09:40 Dose: 40 mg Ferrous Sulfate (Feosol) 324 mg PO BID [facility] Last Admin: 09/27/18 09:40 Dose: 324 mg Fludrocortisone Acetate (Florinef) 0.1 mg PO BID [facility] Last Admin: 09/27/18 09:40 Dose: 0.1 mg Glimepiride (Amaryl) 2 mg PO ACBD [facility] Last Admin: 09/27/18 08:33 Dose: 2 mg Dextrose (Dextrose 5% In Water 1000 Ml) 1,000 mls @ 0 mls/hr IV .Q0M PRN; Protocol PRN Reason: Hypoglycemia Protocol Insulin Human Regular (Humulin R Low) 0 units SC ACHS [facility]; Protocol Last Admin: 09/27/18 12:00 Dose: 1 unit Levothyroxine Sodium (Synthroid) 50 mcg PO 0600 [facility] Last Admin: 09/27/18 05:31 Dose: 50 mcg Metoprolol Tartrate (Lopressor) 25 mg PO BID [facility] Midodrine (Proamatine) 10 mg PO TID [facility] Last Admin: 09/27/18 09:41 Dose: 10 mg Mupirocin (Bactroban Ointment) 0 gm TOP BID [facility] Last Admin: 09/27/18 09:39 Dose: 1 applic Ondansetron HCl (Zofran Inj) 4 mg IVP Q6H PRN PRN Reason: Nausea/Vomiting Pantoprazole Sodium (Protonix Ec Tab) 40 mg PO DAILY [facility] Last Admin: 09/27/18 09:41 Dose: 40 mg Polyethylene Glycol (Miralax) 17 gm PO BID [facility] Last Admin: 09/27/18 09:40 Dose: 17 gm Prednisone (Prednisone Tab) 20 mg PO DAILY [facility] Last Admin: 09/27/18 09:40 Dose: 20 mg Sodium Chloride (Sodium Chloride Tab) 1 gm PO DAILY [facility] Trimethoprim/Sulfamethoxazole (Bactrim Ds Tab) 2 tab PO 1400,2200 [facility]; Protocol Last Admin: 09/26/18 21:14 Dose: 2 tab - Labs Labs: 09/27/18 05:45 02/13/19 05:45 - Constitutional Appears: Well - Head Exam Head Exam: NORMOCEPHALIC - Eye Exam Eye Exam: Normal appearance - ENT Exam ENT Exam: absent: Mucous Membranes Dry, Mucous Membranes Moist, Normal Exam, Normal External Ear Exam, Normal Oropharynx, TM's Normal Bilaterally - Neck Exam Neck Exam: absent: Full ROM, Lymphadenopathy, Meningismus, Normal Inspection, Tenderness, Thyromegaly - Respiratory Exam Respiratory Exam: absent: Accessory Muscle Use, Chest Wall Tenderness, Decreased Breath Sounds, Clear to Ausculation Bilateral, Prolonged Expiratory Phase, Rales, Rhonchi, Wheezes, Respiratory Distress, Stridor, NORMAL BREATHING PATTERN - Cardiovascular Exam Cardiovascular Exam: +S1, +S2 - GI/Abdominal Exam GI & Abdominal Exam: Soft, Normal Bowel Sounds - Rectal Exam Rectal Exam: Deferred - Extremities Exam Extremities Exam: Pedal Edema Additional comments: generalized edema noted to arms b/l and legs b/l - Neurological Exam Neurological Exam: Alert, Oriented x3 - Psychiatric Exam Psychiatric exam: Normal Affect, Normal Mood - Skin Skin Exam: Dry, Intact Assessment and Plan - Assessment and Plan (Free Text) Assessment: Assessment: 68 year old female with a PMHx of unresectable stage III NSCLC with an ALK mutation, COPD, CHF, ASCVD, hx of colon cancer with resection stage 2, GA, AFib (now resolved), anemia of chronic disease, low vitamin D, obesity who presented with dizziness, worse , admitted from [facility], s/p portacath insertion to right [facility]. Plan: 1. Dizziness, Improved s/p portacath insertion -maybe r/t orthostatic hypotension improved cont. Florinef, Midodrine, Renal and card consulted 2. Unresectable Lung CA, Stage III completed RAdiation with Dr Sinha 3..Right Upper Lobe Infiltrate 2/2 Radiation Induced or Superimposed HCAP Cont. Antibx per I.D. 4.. COPD On Duonebs, Bronchodilators, Solumedrol tapering as per pulm. 5. Generalized Edema- likely secondary to Right Sided CHF 6. Hyponatremia- Improved, s/p Samsca 1 x dose.Fluid restriction advised. Will cont to monitor clinical status and follow closely. Will D/w with consultants, PMD. Pt recommended Home, with home PT, anticipate dC as per PMD tommorow.
[2018-09-27] MEDS: Tmp-Smz 800 mg-160 mg DS Tab PO SCH (14:54)
--- NOTE | 2018-09-27 15:30 | PN ---
DATE: 09/27/2018 SUBJECTIVE: The patient is seen sitting in chair. She is awake. She is alert. She is comfortable. She reports she is feeling better. She reports that her dizziness is somewhat better. She has been doing physical therapy. PHYSICAL EXAMINATION: GENERAL: Obese elderly lady sitting in chair. VITAL SIGNS: Blood pressure 135/87, heart rate 94, respiratory rate 21 and temperature 97.3. HEENT: Normocephalic, atraumatic, positive pallor. NECK: Supple, no JVD. LUNGS: Bilateral equal entry, bilateral rhonchi, no rales. CARDIAC: S1 and S2, regular rate and rhythm, no murmur, no rub. ABDOMEN: Obese, distended, soft, nontender, bowel sounds present. EXTREMITIES: Both lower extremities are wrapped in bandages. INTAKE AND OUTPUT: Not charted. LABORATORY DATA: WBC 7.3, hemoglobin 9.6, hematocrit 31.8 and platelets 199. Sodium 135, potassium 4.3, chloride 104, CO2 of 29, BUN 15, creatinine 0.6, glucose 72, calcium 8.1, phosphorus 3.3, magnesium 1.9, AST 38, ALT 88, albumin 2.4 and globulin 2.7. CURRENT MEDICATIONS: Amaryl 2 mg, aspirin, Bactrim, Benadryl, Brovana, Colace, Feosol, Florinef 0.1 b.i.d., Lipitor 40, Lopressor 40, ProAmatine 10 t.i.d. and Synthroid 50. ASSESSMENT: 1. Stage III nonresectable non-small cell cancer of the lung. 2. Congestive heart failure/volume overload. 3. Chronic obstructive pulmonary disease. 4. Orthostatic hypotension. 5. Anemia. PLAN: 1. Continue ProAmatine 10 t.i.d. 2. Continue Florinef 0.1 b.i.d. 3. Blood pressure is much improved, continue physical therapy. 4. Keep hemoglobin around 9. 5. Outpatient followup if possible. Tamiko Jang MD
--- NOTE | 2018-09-27 17:41 | PN ---
DATE: 09/27/2018 SUBJECTIVE: This is a 68-year-old female with recent uncontrolled type 2 insulin-requiring diabetes now being taken off insulin therapy because of supervening low normal glycemic profile overnight as noted. Her IV steroids have been tapered down and will actually be switched over to oral steroids upon discharge today as noted. Her glucose levels have ranged from 67-194 mg/dL. It was 252 at bedtime last night. Her chemistry showed a BUN of 15, sodium 135, potassium 4.3, chloride 104, CO2 29, glucose 72 and creatinine 0.6. PLAN: So at this time, we will discontinue the basal insulin given as Levemir at 6 units subcu at bedtime daily as given. We will also discontinue the Amaryl given as 2 mg b.i.d. as ordered. She will follow with her medical doctors and oncologist for ongoing outpatient medical management. No indication for any kind of oral hypoglycemic therapy nor insulin therapy at this time. She was also never on any kind of diabetic medications as per the last discussion with the patient at bedside. We will obtain serial chemistries and supplement accordingly as needed. We will follow with you. Crystal Mcgregor MD
[2018-09-27 19:53] VITALS: BP 121/70; PULSE 87; RESP 20; TEMP 97.7; O2SAT 94
== END 2018-09-27 20:02 | disposition home health service (06) | DRG 180 ==
LOC: SDSVAS 12:59 → 3RNO 20:11 → SDSVAS 09-21 15:23 → 3RNO 09-21 15:23
PROVIDERS: ADMIT Family Medicine; ATTEND Family Medicine
PROC: 05HM33Z Insertion of Infusion Device into Right Internal Jugular Vein, Percutaneous Approach (ICD-10-PCS; principal; 2018-09-20)
PROC: B543ZZA Ultrasonography of Right Jugular Veins, Guidance (ICD-10-PCS; 2018-09-20)
PROC: B5131ZA Fluoroscopy of Right Jugular Veins using Low Osmolar Contrast, Guidance (ICD-10-PCS; 2018-09-20)
PROC: 3E03305 Introduction of Other Antineoplastic into Peripheral Vein, Percutaneous Approach (ICD-10-PCS; 2018-09-22)
DX: C34.90 Malignant neoplasm of unspecified part of unspecified bronchus or lung (principal); B59 Pneumocystosis; I47.1 Supraventricular tachycardia; J44.0 Chronic obstructive pulmonary disease with (acute) lower respiratory infection; Z68.41 Body mass index [BMI] 40.0-44.9, adult; E22.2 Syndrome of inappropriate secretion of antidiuretic hormone; J44.1 Chronic obstructive pulmonary disease with (acute) exacerbation; D50.9 Iron deficiency anemia, unspecified; E03.9 Hypothyroidism, unspecified; E66.01 Morbid (severe) obesity due to excess calories; E78.5 Hyperlipidemia, unspecified; I95.1 Orthostatic hypotension; G47.30 Sleep apnea, unspecified; I11.0 Hypertensive heart disease with heart failure; I25.10 Atherosclerotic heart disease of native coronary artery without angina pectoris; I25.2 Old myocardial infarction; I48.91 Unspecified atrial fibrillation; I50.9 Heart failure, unspecified; K21.9 Gastro-esophageal reflux disease without esophagitis; S30.1XXA Contusion of abdominal wall, initial encounter; Z79.4 Long term (current) use of insulin; Z79.82 Long term (current) use of aspirin; Z79.899 Other long term (current) drug therapy; Z85.038 Personal history of other malignant neoplasm of large intestine; Z87.891 Personal history of nicotine dependence; Z92.3 Personal history of irradiation; D63.8 Anemia in other chronic diseases classified elsewhere; E11.65 Type 2 diabetes mellitus with hyperglycemia; I27.20 Pulmonary hypertension, unspecified; R42 Dizziness and giddiness; F41.9 Anxiety disorder, unspecified; I48.0 Paroxysmal atrial fibrillation; M81.0 Age-related osteoporosis without current pathological fracture; T38.0X5A Adverse effect of glucocorticoids and synthetic analogues, initial encounter; Z87.01 Personal history of pneumonia (recurrent); Z90.49 Acquired absence of other specified parts of digestive tract

== ENCOUNTER 2018-11-07 08:26 | Outpatient (CLI) | payer MEDICARE | END 2018-11-07 08:27 | disposition home or self-care (01) | LOC: RAD 08:26 ==

== ENCOUNTER 2018-11-07 12:19 | Inpatient (IN) | payer MEDICARE ==
[2018-11-07 12:36] VITALS: BMI 39.1
[2018-11-07] MEDS ORDERED: Albuterol-Ipratrop 3 mg / 0.5 (3 ml) UD IH STA (12:54)
[2018-11-07 13:24] LABS: VENOUS BLOOD GAS BASE EXCESS 7.3 mmol/L (0.0-2.0); VENOUS BLOOD GAS PO2 31 mm/Hg (30-55); VENOUS BLOOD PH 7.41 (7.32-7.43)
[2018-11-07 13:36] LABS: BASO # 0.04 K/mm3 (0.0-2.0); BASO % 0.5 % (0.0-3.0); EOS # 0.1 (0.0-0.7); HEMOGLOBIN 9.1 g/dL (12.0-16.0); LYMPH # 1.5 (1.2-3.4); LYMPH % 19.6 % (22.0-35.0); MEAN CELL VOLUME 86.1 fl (80.0-105.0); MEAN CORPUSCULAR HEMOGLOBIN 25.3 pg (25.0-35.0); MEAN CORPUSCULAR HGB CONC 29.4 g/dl (31.0-37.0); MEAN PLATELET VOLUME 9.6 fl (7.0-11.0); MONO # 0.9 (0.1-0.6); MONO % 11.4 % (1.0-6.0); RBC 3.6 10^6/uL (3.5-6.1); RED CELL DISTRIBUTION WIDTH 19.6 % (11.5-14.5); WHITE BLOOD COUNT 7.7 10^3/uL (4.5-11.0)
[2018-11-07 13:40] LABS: INR 1.26; PARTIAL THROMBOPLASTIN TIME 30.3 Seconds (26.9-38.3); PROTHROMBIN TIME 14.2 SECONDS (9.4-12.5)
[2018-11-07 13:51] LABS: B-TYPE NATRIURETIC PEPTIDE 412 pg/mL (0-450)
[2018-11-07 13:54] LABS: BLOOD UREA NITROGEN 11 mg/dL (7-21); GFR NON-AFRICAN AMERICAN > 60
[2018-11-07 13:55] LABS: ALB/GLOB RATIO 0.7 (1.1-1.8); ALBUMIN 2.4 g/dL (3.0-4.8); ALT/SGPT 56 U/L (7-56); AST/SGOT 49 U/L (14-36)
[2018-11-07 14:06] LABS: TROPONIN I < 0.01 ng/mL
--- NOTE | 2018-11-07 14:14 | RAD ---
Date of service: 11/07/2018 HISTORY: dyspnea w/ pleural effusions COMPARISON: CT chest with contrast from 11/07/2018 FINDINGS: Right-sided MediPort terminates at the cavoatrial junction LUNGS: The lungs are well inflated. There is masslike consolidation in the right lower lobe. There is consolidation with air bronchogram in the right upper lobe. There is interstitial thickening in the left lung. PLEURA: No pleural effusions or pneumothorax. CARDIOVASCULAR: Mild cardiomegaly. There are aortic atherosclerotic calcifications present. OSSEOUS STRUCTURES: Within normal limits for the patient's age. VISUALIZED UPPER ABDOMEN: Normal. OTHER FINDINGS: None. IMPRESSION: 1. Masslike consolidation in the right lower lobe. 2. Consolidation with air bronchogram in the right upper lobe. 3. Interstitial changes in the left lung.
--- NOTE | 2018-11-07 14:16 | ED PDOC ---
Arrival/HPI - General Chief Complaint: Shortness Of Breath Time Seen by Provider: 11/07/18 12:23 Historian: Patient - History of Present Illness Narrative History of Present Illness (Text): 11/07/18 14:17 68 year old female, whose past medical history includes whose past medical history includes hypothyroidism, anemia, degenerative joint disease, non-small cell lung cancer, adenocarcinoma, colon cancer, and COPD, presents to the emergency department for further evaluation of shortness of breath that has been worsening over the past couple of days. Patient reports lab work was done by Dr. Adames, where he found pleural effusion on her right side. Patient is reportedly on immunotherapy, but not on chemotherapy. She denies any fever, chills, chest pain, vomiting, nausea, diarrhea, or any other complaints. Symptom Onset: Gradual Symptom Course: Unchanged Activities at Onset: Light Context: Home Past Medical History - Provider Review Nursing Documentation Reviewed: Yes - Infectious Disease Hx of Infectious Diseases: None - Reproductive Menopause: Yes - Cardiac Hx Cardiac Disorders: Yes ([place],) Hx Congestive Heart Failure: Yes - Pulmonary Hx Chronic Obstructive Pulmonary Disease (COPD): Yes - Neurological Hx Neurological Disorder: No - HEENT Hx HEENT Disorder: Yes ([place]) Hx Cataracts: Yes Other/Comment: detached retina left eye - Renal Hx Renal Disorder: No - Endocrine/Metabolic Hx Hypothyroidism: Yes - Hematological/Oncological Hx Blood Disorders: Yes (blood transfusion) Hx Anemia: Yes (iron deficiency) Hx Cancer: Yes (Lung, colon) Other/Comment: 09/2017 pt had a colon resection no chemo, r lung non small cell stage III ca takes chemo pill started radiation in 08/01, has completed 12 treatments tuesday through tuesday, needs 36 total radiation treatments - Integumentary Hx Dermatological Disorder: Yes - Musculoskeletal/Rheumatological Hx Musculoskeletal Disorders: Yes ([place]) Hx Falls: Yes - Gastrointestinal Hx Gastrointestinal Disorders: Yes (COLON CA H/O COLON RESECTION) - Genitourinary/Gynecological Hx Genitourinary Disorders: No - Psychiatric Hx Emotional Abuse: No Hx Physical Abuse: No Hx Substance Use: No - Surgical History Other/Comment: 10/2017- Colon resection for adenocarcinoma. Surg. repair for detached retina both eyes LEFT 2012,Right 2016 - Anesthesia Hx Anesthesia Reactions: No Hx Malignant Hyperthermia: No - Suicidal Assessment Feels Threatened In Home Enviroment: No Family/Social History - Physician Review Nursing Documentation Reviewed: Yes Family/Social History: Unknown Family HX Smoking Status: Former Smoker Hx Alcohol Use: No Hx Substance Use: No Allergies/Home Meds Allergies/Adverse Reactions: Allergies No Known Allergies Allergy (Verified 09/20/18 22:36) Home Medications: Home Meds Medication Instructions Recorded Confirmed Aspirin [Ecotrin] 81 mg PO DAILY 09/18/18 11/07/18 Pantoprazole Sodium [Protonix] 40 mg PO DAILY 09/18/18 11/07/18 Sulfamethoxazole/Trimethoprim 2 tab PO BID 09/18/18 11/07/18 [Bactrim DS Tab] Midodrine [Proamatine] 5 mg PO TID 09/20/18 11/07/18 Docusate [Colace] 100 mg PO BID 11/07/18 11/07/18 Review of Systems - Physician Review All systems were reviewed & negative as marked: Yes - Review of Systems Constitutional: absent: Fevers Respiratory: SOB. absent: Cough Cardiovascular: absent: Chest Pain Gastrointestinal: absent: Abdominal Pain Genitourinary Female: Dysuria Musculoskeletal: absent: Back Pain, Neck Pain Endocrine: absent: Diaphoresis Physical Exam Vital Signs Reviewed: Yes Vital Signs Temp Pulse Resp BP Pulse Ox 11/07/18 13:33 126/62 11/07/18 12:42 24 11/07/18 12:21 98.7 F 76 24 122/61 93 L Temperature: Afebrile Blood Pressure: Normal Pulse: Regular Respiratory Rate: Normal Appearance: Positive for: Well-Appearing, Non-Toxic, Comfortable Pain Distress: None Mental Status: Positive for: Alert and Oriented X 3 - Systems Exam Head: Present: Atraumatic, Normocephalic. No: Ecchymosis Pupils: Present: PERRL Extroacular Muscles: Present: EOMI Conjunctiva: Present: Normal Mouth: Present: Moist Mucous Membranes Neck: Present: Normal Range of Motion Respiratory/Chest: Present: Good Air Exchange, Decreased Breath Sounds (Diminshed breath sounds left lung base, no crackles). No: Respiratory Distress, Accessory Muscle Use Cardiovascular: Present: Regular Rate and Rhythm, Normal S1, S2. No: Murmurs Abdomen: No: Tenderness, Distention, Peritoneal Signs Back: Present: Normal Inspection Upper Extremity: Present: Normal Inspection, Other. No: Cyanosis, Edema Lower Extremity: Present: Normal Inspection, Other (3 pitting edema bilaterally ). No: Edema Neurological: Present: GCS=15, CN II-XII Intact, Speech Normal Skin: Present: Warm, Dry, Normal Color. No: Rashes Psychiatric: Present: Alert, Oriented x 3, Normal Insight, Normal Concentration Medical Decision Making ED Course and Treatment: 11/07/18 14:14 Impression: 68 year old female presents to the emergency department for further evaluation of shortness of breath that has been worsening over the past couple of days. Differential Diagnosis included but are not limited to: Plan: -- Venous blood gas -- CT chest -- Basic labs -- Reassess and disposition Prior Visits: Notes and results from previous visits were reviewed. Progress Notes: - Lab Interpretations Lab Results: pO2 31 mm/Hg (30-55) 11/07/18 13:10 VBG pH 7.41 (7.32-7.43) 11/07/18 13:10 VBG pCO2 53.0 (40-60) 11/07/18 13:10 VBG HCO3 33.6 mmol/l (21-28) H 11/07/18 13:10 VBG Total CO2 35.2 mmol.L (22-28) H 11/07/18 13:10 VBG O2 Sat (Calc) 53.5 % (40-65) 11/07/18 13:10 VBG Base Excess 7.3 mmol/L (0.0-2.0) H 11/07/18 13:10 VBG Potassium 3.7 mmol/L (3.6-5.2) 11/07/18 13:10 Sodium 134.0 mmol/L (132-148) 11/07/18 13:10 Chloride 99.0 mmol/L (98-107) 11/07/18 13:10 Glucose 107 mg/dl (65-105) H 11/07/18 13:10 Lactate 1.5 mmol/L (0.7-2.1) 11/07/18 13:10 FiO2 21.0 % 11/07/18 13:10 PT 14.2 SECONDS (9.4-12.5) H 11/07/18 13:10 INR 1.26 11/07/18 13:10 APTT 30.3 Seconds (26.9-38.3) 11/07/18 13:10 Troponin I < 0.01 ng/mL 11/07/18 13:10 NT-Pro-B Natriuret Pep 412 pg/mL (0-450) 11/07/18 13:10 Total Bilirubin 0.5 mg/dL (0.2-1.3) 11/07/18 13:10 AST 49 U/L (14-36) H D 11/07/18 13:10 ALT 56 U/L (7-56) 11/07/18 13:10 Alkaline Phosphatase 171 U/L (38-126) H D 11/07/18 13:10 Total Protein 5.7 g/dL (5.8-8.3) L 11/07/18 13:10 Albumin 2.4 g/dL (3.0-4.8) L 11/07/18 13:10 Globulin 3.3 gm/dL 11/07/18 13:10 Albumin/Globulin Ratio 0.7 (1.1-1.8) L 11/07/18 13:10 - RAD Interpretation Radiology Orders: 11/07/18 12:54 CHEST PORTABLE [RAD] Stat - EKG Interpretation EKG Interpretation (Text): 11/07/18 17:06 EKG reviewed, shows: NSR at 73 bpm, No ST elevations Interpreted by ED Physician: Yes - Medication Orders Current Medication Orders: Arformoterol Tartrate (Brovana) 15 mcg IH [id number] [facility] Aspirin (Ecotrin) 81 mg PO DAILY JOHN Atorvastatin Calcium (Lipitor) 40 mg PO DIN JOHN Budesonide (Pulmicort Respules) 0.5 mg IH [id number] JOHN Docusate Sodium (Colace) 100 mg PO BID [facility] Doxycycline Hyclate (Doryx) 100 mg PO Q12 [facility]; Protocol Ferrous Sulfate (Feosol) 324 mg PO BID [facility] Furosemide (Lasix) 20 mg IVP Q8H JOHN Last Admin: 11/07/18 13:33 Dose: 20 mg MAR Blood Pressure Document 11/07/18 13:33 CD (Rec: 11/07/18 13:36 CD [facility] [id number]) Blood Pressure Blood Pressure (100/60-150/90) 126/62 IVP Administration Document 11/07/18 13:33 CD (Rec: 11/07/18 13:36 CD [facility] [id number]) Charges for Administration # of IVP Administrations 1 Levothyroxine Sodium (Synthroid) 50 mcg PO 0600 JOHN Methylprednisolone (Solu-Medrol) 20 mg IVP Q8 JOHN Midodrine (Proamatine) 5 mg PO TID JONH Pantoprazole Sodium (Protonix Ec Tab) 40 mg PO HS JOHN Discontinued Medications Albuterol/Ipratropium (Duoneb 3 Mg/0.5 Mg (3 Ml) Ud) 3 ml IH STAT STA Stop: 11/07/18 12:55 Last Admin: 11/07/18 13:33 Dose: 3 ml - Scribe Statement The provider has reviewed the documentation as recorded by the Jacy Hillwale Provider Scribe Attestation: All medical record entries made by the Jacy were at my direction and personally dictated by me. I have reviewed the chart and agree that the record accurately reflects my personal performance of the history, physical exam, medical decision making, and the department course for this patient. I have also personally directed, reviewed, and agree with the discharge instructions and disposition. Disposition/Present on Arrival - Present on Arrival History of DVT/PE: No History of Uncontrolled Diabetes: No Urinary Catheter: No History of Decub. Ulcer: No History Surgical Site Infection Following: None - Disposition Disposition: HOSPITALIZED
--- NOTE | 2018-11-07 14:23 | CP.PCM.HP ---
History of Present Illness - History of Present Illness History of Present Illness: Jimbo Hand DO, PGY-1 Hematology/Oncology Admission History and Physical for Dr. Adames CC: SOB HPI: La is a 67 year old female with PMH of stage IIIb NSCLC of RUL, stage II colon adenocarcinoma (s/p resection), COPD, HTN, hypothyroidism, HLD, anemia of chronic disease, and OA who presents to [facility] from Dr. Adames's office with a complaint of worsening SOB and fatigue. She was most recently admitted to the hospital for a similar episode in 11/2017. W/u at that time revealed the RUL infiltrate which was later confirmed to be a mass. She underwent CT-guided biopsy of the mass and was confirmed to have adenocarcinoma of lung origin. Patient was seen by multiple experts in the field and the decision was made for her to first undergo resection of the colon CA prior to initiating therapy for the lung CA. She is s/p R hemicolectomy. 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 Xalkori was temporarily held for concern that she had a detached retina on the R, but, after reviewing the latest literature, felt that restart ing was safe. Today, La continues to complain of worsening SOB, cough, and fatigue which has been worsening over the past week. She was receiving a follow up chest CT which found patient to have new, worsening R-sided effusion with RUL mass-like consolidation. 12-point ROS was otherwise negative except as specified above. Past Medical History: stage IIIb NSCLC of RUL, stage II colon adenocarcinoma (s/p resection), COPD, HTN, hypothyroidism, HLD, anemia of chronic disease, and OA Past Surgical History: detached retina, R partial hemicolectomy Allergies: NKA Home medications: Reviewed, as per MAR Family History: father from lung CA, brother from colorectal CA Social History: former smoker but quit in 1989, social EtOH use, denies illicit drug use, no hx of occupational exposures Present on Admission - Present on Admission Any Indicators Present on Admission: No History of DVT/PE: No History of Uncontrolled Diabetes: No Urinary Catheter: No Decubitus Ulcer Present: No Past Patient History - Infectious Disease Hx of Infectious Diseases: None - Past Social History Smoking Status: Former Smoker - CARDIAC Hx Cardiac Disorders: Yes (MT,) Hx Congestive Heart Failure: Yes - PULMONARY Hx Chronic Obstructive Pulmonary Disease (COPD): Yes - NEUROLOGICAL Hx Neurological Disorder: No - HEENT Hx HEENT Problems: Yes (Glasses) Hx Cataracts: Yes Other/Comment: detached retina left eye - RENAL Hx Chronic Kidney Disease: No - ENDOCRINE/METABOLIC Hx Hypothyroidism: Yes - HEMATOLOGICAL/ONCOLOGICAL Hx Blood Disorders: Yes (blood transfusion) Hx Anemia: Yes (iron deficiency) Hx Cancer: Yes (Lung, colon) Other/Comment: 09/2017 pt had a colon resection no chemo, r lung non small cell stage III ca takes chemo pill started radiation in 08/01, has completed 12 treatments tuesday through tuesday, needs 36 total radiation treatments - INTEGUMENTARY Hx Dermatological Problems: Yes - MUSCULOSKELETAL/RHEUMATOLOGICAL Hx Musculoskeletal Disorders: Yes (SCIATICA) Hx Falls: Yes - GASTROINTESTINAL Hx Gastrointestinal Disorders: Yes (COLON CA H/O COLON RESECTION) - GENITOURINARY/GYNECOLOGICAL Hx Genitourinary Disorders: No - PSYCHIATRIC Hx Emotional Abuse: No Hx Physical Abuse: No Hx Substance Use: No - SURGICAL HISTORY Hx Surgeries: Yes (PORT TO [facility] 09-20-18,LUNG BX,COLON RESECTION) - ANESTHESIA Hx Anesthesia Reactions: No Hx Malignant Hyperthermia: No Meds Allergies/Adverse Reactions: Allergies Allergy/AdvReac Type Severity Reaction Status Date / Time No Known Allergies Allergy Verified 09/20/18 22:36 Physical Exam - Constitutional Additional comments: Appears tachypneic but able to protect airway, no significant respiratory distress - Head Exam Head Exam: ATRAUMATIC, NORMOCEPHALIC - Eye Exam Eye Exam: EOMI, PERRL - ENT Exam ENT Exam: Mucous Membranes Moist - Neck Exam Neck exam: Positive for: Full Rom. Negative for: Lymphadenopathy - Respiratory Exam Respiratory Exam: Decreased Breath Sounds (decreased breath sounds on R), Rhonchi (R > L), Wheezes (end expiratory wheezes b/l). absent: Accessory Muscle Use, Rales, Respiratory Distress - Cardiovascular Exam Cardiovascular Exam: REGULAR RHYTHM, RRR. absent: Diastolic murmur, Gallop, Ru bs, Systolic Murmur - GI/Abdominal Exam GI & Abdominal Exam: Normal Bowel Sounds. absent: Guarding, Rebound, Tenderness - Extremities Exam Extremities exam: Positive for: pedal edema (non pitting edema b/l), pedal pulses present - Back Exam Back exam: NORMAL INSPECTION - Neurological Exam Neurological exam: Alert, Oriented x3 - Psychiatric Exam Psychiatric exam: Normal Affect, Normal Mood - Skin Skin Exam: Dry, Intact, Warm Additional comments: b/l LE venous stasis dermatitis, diffuse xerosis cutis Results - Vital Signs Recent Vital Signs: Last Vital Signs Temp 98.7 F 11/07/18 12:21 Pulse 76 11/07/18 12:21 Resp 24 11/07/18 12:42 BP 126/62 11/07/18 13:33 Pulse Ox 93 L 11/07/18 12:21 - Labs Result Diagrams: 11/07/18 13:10 11/07/18 13:10 Labs: Laboratory Results - last 24 hr 11/07/18 11/07/18 11/07/18 13:10 13:10 13:10 WBC 7.7 RBC 3.60 Hgb 9.1 L Hct 31.0 L MCV 86.1 MCH 25.3 MCHC 29.4 L RDW 19.6 H Plt Count 416 MPV 9.6 Neut % (Auto) 67.5 Lymph % (Auto) 19.6 L [place] % (Auto) 11.4 H Eos % (Auto) 1.0 L Baso % (Auto) 0.5 Lymph # (Auto) 1.5 [place] # (Auto) 0.9 H Eos # (Auto) 0.1 Baso # (Auto) 0.04 Absolute Neuts (auto) 5.20 PT 14.2 H INR 1.26 APTT 30.3 pO2 31 VBG pH 7.41 VBG pCO2 53.0 VBG HCO3 33.6 H VBG Total CO2 35.2 H VBG O2 Sat (Calc) 53.5 VBG Base Excess 7.3 H VBG Potassium 3.7 Sodium 134.0 Chloride 99.0 Glucose 107 H Lactate 1.5 FiO2 21.0 Potassium Carbon Dioxide Anion Gap BUN Creatinine Est GFR ( Amer) Est GFR (Non-Af Amer) Random Glucose Calcium Magnesium Total Bilirubin AST ALT Alkaline Phosphatase Troponin I NT-Pro-B Natriuret Pep Total Protein Albumin Globulin Albumin/Globulin Ratio Venous Blood Potassium 3.7 11/07/18 13:10 WBC RBC Hgb Hct MCV MCH MCHC RDW Plt Count MPV Neut % (Auto) Lymph % (Auto) [place] % (Auto) Eos % (Auto) Baso % (Auto) Lymph # (Auto) [place] # (Auto) Eos # (Auto) Baso # (Auto) Absolute Neuts (auto) PT INR APTT pO2 VBG pH VBG pCO2 VBG HCO3 VBG Total CO2 VBG O2 Sat (Calc) VBG Base Excess VBG Potassium Sodium 132 Chloride 96 L Glucose Lactate FiO2 Potassium 4.1 Carbon Dioxide 32 Anion Gap 8 L BUN 11 Creatinine 0.7 Est GFR ( Amer) > 60 Est GFR (Non-Af Amer) > 60 Random Glucose 102 Calcium 8.0 L Magnesium 1.7 Total Bilirubin 0.5 AST 49 H D ALT 56 Alkaline Phosphatase 171 H D Troponin I < 0.01 NT-Pro-B Natriuret Pep 412 Total Protein 5.7 L Albumin 2.4 L Globulin 3.3 Albumin/Globulin Ratio 0.7 L Venous Blood Potassium Assessment & Plan - Assessment and Plan (Free Text) Assessment: 68 yo F with PMH of stage IIIb NSCLC of RUL, stage II colon adenocarcinoma (s/p resection), COPD, HTN, hypothyroidism, HLD, anemia of chronic disease, and OA admitted for management of newly identified R-sided malignant pleural effusion. Plan: New R-sided effusion Need to confirm whether effusion is malignant vs. infectious vs. transudative Found on f/u chest CT for RUL adenocarcinoma this AM IR, Dr. Jimenez, consulted for thoracentesis Pulmonology consulted as BAL will be needed to further characterize the etiology of her respiratory compromise Continue diuresis with lasix 20 mg IVP q12h Continue brovana, solumedrol, pulmicort, supplemental O2 to maintain SpO2 > 95% Stage IIIb NSCLC Will continue xalkori for now Will need to consider additional agents if respiratory compromise is secondary to worsening tumor burden Normocytic anemia Most likely 2/2 iron deficiency and anemia of chronic disease Continue iron supplementation Continue serial H/H monitoring HTN Continue home meds with holding parameters Hypothyroidism Continue home synthroid dose F/u TSH result in AM HLD Continue home lipitor Hx b/l retinal detachments No active issues Optho consult if needed DVT/GI PPX: Lovenox/protonix Full Code HHD Monitor on telemetry Patient seen, examined with, and plan discussed with my attending Dr. Zacarias Hand, D.O. IM Resident PGY-1
--- NOTE | 2018-11-07 14:33 | CON ---
DATE: 11/07/2018 PULMONARY CONSULT NOTE REFERRING PHYSICIAN: Dr. Adames. REASON FOR CONSULT: Shortness of breath, cough, sleep apnea. HISTORY OF PRESENT ILLNESS: This is a 68-year-old female with past medical history significant for unresectable non-small cell lung cell stage III, COPD, CHF, atherosclerotic cardiovascular disease, history of colon cancer resection, GA, history of atrial fibrillation, anemia, sleep apnea syndrome, pulmonary hypertension, anemia and obesity, who presented to emergency room complaining of shortness of breath, cough productive, and bilateral lower extremity edema. The patient reports that she has been having these symptoms over the past 2 weeks, but this last week shortness of breath has worsened where she was having difficulty ambulating due to shortness of breath. The patient has history of chemotherapy and radiation. At this time, the patient reports having shortness of breath and bilateral lower extremity edema. PAST MEDICAL HISTORY: As per history of present illness. FAMILY HISTORY: No significant cardiopulmonary disease reported. SOCIAL HISTORY: Former smoker. No ETOH abuse. No illicit drug use. ALLERGIES: NO KNOWN ALLERGIES. MEDICATIONS: At home; prednisone 20 mg daily, Bactrim DS 2 tabs twice a day, Protonix 40 mg daily, Bactroban topically twice a day to affected areas, midodrine 15 mg three times a day, Synthroid 50 mcg daily, Florinef 0.1 mg twice a day, ferrous sulfate 324 mg twice a day, Colace 200 mg three times a day, Lipitor 40 mg at dinner, and aspirin 81 mg daily. REVIEW OF SYSTEMS: The patient reported bilateral lower extremity edema, difficulty ambulating due to shortness of breath, shortness of breath with and without exertion, productive cough. No headache, rhinitis, chest pain, abdominal pain, nausea, vomiting, diarrhea, leg pain reported. LABORATORY DATA: Reviewed. No new labs at this time. CT scan of the neck with contrast, which shows unremarkable contrast enhanced CT scan of the neck. Chest CT with contrast prior exam showed a mass in the superior segment of the right lower lobe measured 20 x 26 mm. On current study this mass is obscured by dense alveoli infiltrate, infiltrate also extends into the right upper lobe where there is dense consolidation with air bronchogram, moderate size right pleural effusion is also seen, which extends to the right lung apex, left lung is relatively clear. There is some interstitial changes in the left upper lobe. No evidence of endobronchial lesion, stable mediastinal adenopathy. PHYSICAL EXAMINATION GENERAL: No acute distress. VITAL SIGNS: Blood pressure 122/61, pulse 76, temperature 98.7, oxygen saturations 96% on room air. HEENT: Moist mucous membranes. Mallampati score of 4. NECK: Supple. No JVD. RESPIRATORY: Rhonchi, wheezing, bilaterally decreased breath sounds on the right. CARDIOVASCULAR: S1 and S2. ABDOMEN: Soft, nontender. No distention. No organomegaly. EXTREMITIES: Positive bilateral lower extremity edema, erythema to bilateral lower extremities. NEUROLOGICAL: Awake, alert, verbal, following commands. IMPRESSION: Non-small cell lung cancer, chronic obstructive lung disease, gastroesophageal reflux disease, hypothyroidism, obesity, anemia, sleep apnea syndrome, pulmonary hypertension. Last echocardiogram from 2018 reviewed shows ejection fraction 66%, RVSP of 59. We will place the patient on gastric prophylaxis, Protonix. We will place the patient on nebulizer treatments, Solu-Medrol 20 mg every 8 hours. We will start doxycycline 100 mg twice a day, agree with getting ProBNP. We will also ordered procalcitonin levels to be done. We will order an echocardiogram to be done as the patient has been on chemotherapy, rule out heart failure. We will start the patient on CPAP 8 cm, H2O 30% FiO2 at bedtime and as needed. We will start Lasix 20 mg every 8 hours IV push. Sleep apnea precaution. Head of bed elevated at 45 degrees. We will give further recommendation once lab results available. This patient was seen and examined with Dr. Feliz. Discussed assessment and plan as described above. This patient was seen and examined with Juan Richardson, nurse practitioner. Discussed assessment and plan as described above. Thank you for this consult. We will follow with you. Juan Richardson APN Hussein Feliz MD DAVID
[2018-11-07] MEDS: MethylPREDNISolone 40 mg Vial IVP SCH ×2 (14:48→21:47)
[2018-11-07 17:04] LABS: BODY FLUID TYPE PLEURAL
[2018-11-07 17:29] LABS: BF GROSS APPEARANCE SL CLOUDY (CLEAR); BODY FLUID TOTAL COUNT 100 (0-0)
--- NOTE | 2018-11-07 18:26 | US ---
PROCEDURE: Ultrasound guided right thoracentesis. CLINICAL HISTORY: Lung carcinoma. Receiving radiation therapy. New right pleural effusion with shortness of breath. Needs diagnostic and therapeutic thoracentesis PHYSICIAN(S): Gus Jimenez MD. TECHNIQUE: The relative risks and indications of the procedure were explained to the patient and consent obtained. The patient was placed in a sitting position on the stretcher and sonography of the right chest performed. This revealed a small rightpleural effusion. A right posterolateral intercostal approach was selected and the area prepped and draped usual sterile fashion. 1% Xylocaine was used to anesthetize the skin and soft tissues. A 7 [place] thoracentesis catheter was trocared into the right pleural cavity and 150 cc of clear yellow fluid aspirated. Appropriate lab specimens were sent. IMPRESSION: 1. Ultrasound guided right thoracentesis. 550 cc of clear yellow fluid was aspirated. The appropriate labs were sent
--- NOTE | 2018-11-07 19:20 | CARD ---
APPROVED REPORT Date of service: 11/07/2018 EKG Measurement Heart [id number] <Conclusion> Normal sinus rhythm Normal ECG
[2018-11-07] MEDS: Arformoterol 15 mcg/2 ml Inh Sol IH SCH (20:29)
[2018-11-07] MEDS: Budesonide 0.5 mg/2 ml Inhal Susp UD IH SCH (20:29)
[2018-11-07] MEDS: Pantoprazole 40 mg EC Tab PO SCH (21:47)
[2018-11-08] MEDS ORDERED: Pantoprazole 40 mg EC Tab PO SCH (06:00)
[2018-11-08] MEDS: Levothyroxine 50 MCG TAB PO SCH (06:52)
[2018-11-08] MEDS: MethylPREDNISolone 40 mg Vial IVP SCH ×3 (06:52→21:26)
[2018-11-08 07:00] LABS: BASO # 0.02 K/mm3 (0.0-2.0); BASO % 0.3 % (0.0-3.0); LYMPH # 0.6 (1.2-3.4); LYMPH % 9.6 % (22.0-35.0); MEAN CELL VOLUME 85.9 fl (80.0-105.0); MEAN CORPUSCULAR HEMOGLOBIN 24.5 pg (25.0-35.0); MEAN CORPUSCULAR HGB CONC 28.5 g/dl (31.0-37.0); MEAN PLATELET VOLUME 9.2 fl (7.0-11.0); MONO # 0.4 (0.1-0.6); MONO % 6.1 % (1.0-6.0); RBC 3.68 10^6/uL (3.5-6.1); RED CELL DISTRIBUTION WIDTH 19.4 % (11.5-14.5); WHITE BLOOD COUNT 6.6 10^3/uL (4.5-11.0)
[2018-11-08 07:25] LABS: ALB/GLOB RATIO 0.7 (1.1-1.8); ALBUMIN 2.5 g/dL (3.0-4.8); ALT/SGPT 47 U/L (7-56); AST/SGOT 39 U/L (14-36); BLOOD UREA NITROGEN 15 mg/dL (7-21); CALCIUM 8.4 mg/dL (8.4-10.5); GFR NON-AFRICAN AMERICAN > 60
--- NOTE | 2018-11-08 07:43 | CP.PCM.PN ---
Subjective - Date & Time of Evaluation Date of Evaluation: 11/08/18 Time of Evaluation: 13:00 - Subjective Subjective: Pool Nolasco PGY2 - Heme/Onc Progress Note for Dr. Adames Patient seen and evaluated. Patient reports stable respiratory effort. Complains of continued difficulty with swelling of her lower extremities. She denies chest pain, abdominal pain, fever, chills, nausea, vomiting. Objective - Vital Signs/Intake and Output Vital Signs (last 24 hours): Temp Pulse Resp BP Pulse Ox 97.3 F L 73 19 160/80 H 91 L 11/08/18 06:00 11/08/18 06:00 11/08/18 06:00 11/08/18 06:52 11/08/18 06:00 Intake and Output: 11/08/18 11/08/18 06:59 18:59 Intake Total 240 Balance 240 - Medications Medications: Current Medications Acetaminophen (Tylenol 325mg Tab) 650 mg PO Q6H PRN PRN Reason: Pain, Mild (1-3) Arformoterol Tartrate (Brovana) 15 mcg IH [id number] [facility] Last Admin: 11/07/18 20:29 Dose: 15 mcg Aspirin (Ecotrin) 81 mg PO DAILY [facility] Atorvastatin Calcium (Lipitor) 40 mg PO DIN [facility] Last Admin: 11/07/18 17:53 Dose: 40 mg Budesonide (Pulmicort Respules) 0.5 mg IH [id number] [facility] Last Admin: 11/07/18 20:29 Dose: 0.5 mg Docusate Sodium (Colace) 100 mg PO BID [facility] Last Admin: 11/07/18 17:53 Dose: 100 mg Doxycycline Hyclate (Doryx) 100 mg PO Q12 [facility]; Protocol Last Admin: 11/07/18 21:47 Dose: 100 mg Enoxaparin Sodium (Lovenox) 40 mg SC DAILY [facility]; Protocol Ferrous Sulfate (Feosol) 324 mg PO BID [facility] Last Admin: 11/07/18 17:54 Dose: 324 mg Furosemide (Lasix) 20 mg IVP Q8H [facility] Last Admin: 11/08/18 06:52 Dose: 20 mg Levothyroxine Sodium (Synthroid) 50 mcg PO 0600 [facility] Last Admin: 11/08/18 06:52 Dose: 50 mcg Methylprednisolone (Solu-Medrol) 20 mg IVP Q8 [facility] Last Admin: 11/08/18 06:52 Dose: 20 mg Midodrine (Proamatine) 5 mg PO TID [facility] Last Admin: 11/07/18 17:54 Dose: Not Given Ondansetron HCl (Zofran Inj) 4 mg IVP Q6H PRN PRN Reason: Nausea/Vomiting Pantoprazole Sodium (Protonix Ec Tab) 40 mg PO HS [facility] Last Admin: 11/07/18 21:47 Dose: 40 mg - Labs Labs: 11/08/18 06:30 11/08/18 06:30 PT 14.2 SECONDS (9.4-12.5) H 11/07/18 13:10 INR 1.26 11/07/18 13:10 APTT 30.3 Seconds (26.9-38.3) 11/07/18 13:10 - Head Exam Head Exam: ATRAUMATIC, NORMOCEPHALIC - Eye Exam Eye Exam: EOMI, PERRL - ENT Exam ENT Exam: Mucous Membranes Moist - Respiratory Exam Respiratory Exam: Rhonchi, NORMAL BREATHING PATTERN Additional comments: distant to absent breath sounds right sided - Cardiovascular Exam Cardiovascular Exam: REGULAR RHYTHM, +S1, +S2 - GI/Abdominal Exam GI & Abdominal Exam: Soft, Normal Bowel Sounds - Extremities Exam Extremities Exam: Full ROM, Normal Capillary Refill, Pedal Edema (bilateral ). absent: Calf Tenderness Additional comments: right port in place - Neurological Exam Neurological Exam: Alert, Awake, CN II-XII Intact, Oriented x3 Additional comments: motor and sensory grossly intact - Psychiatric Exam Psychiatric exam: Normal Affect, Normal Mood - Skin Skin Exam: Dry, Warm Assessment and Plan - Assessment and Plan (Free Text) Assessment: 68 year old female with PMH of stage IIIb NSCLC of RUL, stage II colon adenocarcinoma (s/p resection), COPD, HTN, hypothyroidism, HLD, anemia of chronic disease, and OA admitted for management of newly identified R-sided malignant pleural effusion. Plan: R-sided Pleural effusion -Etiology: Likely malignant vs. less likely infectious vs. inflammatory -IR, Dr. Jimenez, consulted for thoracentesis -Pulmonology consulted as BAL will be needed to further characterize the etiology of her respiratory compromise - Conversations with Dr. Feliz had and will await further recommendations - Request for Chest CT without contrast placed, follow up imaging -Continue brovana, solumedrol, pulmicort, supplemental O2 to maintain SpO2 > 95% Chronic lower extremity edema secondary to lymphedema vs. low albumin state - Fluid status in question will consult Dr. Richards for recommendations - IV albumin 25mg daily x 3 days which will be followed with IV lasix 40mg for three days Protein calorie malnutrition - Calorie count - Dietary referral Stage IIIb NSCLC -Continue xalkori for now -Consider radiation vs. additional therapy if resp comprimise 2/2 worsening tumor burden Normocytic anemia -Most likely 2/2 iron deficiency and anemia of chronic disease -Continue iron supplementation -Continue serial H/H monitoring HTN -Continue home meds with holding parameters Hypothyroidism -Continue home synthroid dose -TSH levels indicate controlled (TSH 0.72) HLD -Continue home lipitor Hyperglycemia -Likely secondary to steroid usage -ISS medium DVT/GI PPX: Lovenox/protonix Full Code HHD Monitor on telemetry Patient seen, examined with, and plan discussed with attending Dr. Adames
[2018-11-08] MEDS: Arformoterol 15 mcg/2 ml Inh Sol IH SCH ×2 (07:49→20:21)
[2018-11-08] MEDS: Budesonide 0.5 mg/2 ml Inhal Susp UD IH SCH ×2 (07:49→20:21)
--- NOTE | 2018-11-08 09:21 | RAD ---
Date of service: 11/08/2018 HISTORY: rt thora COMPARISON: 11/07/2018 TECHNIQUE: Chest PA and lateral views FINDINGS: LUNGS: No evidence of pneumothorax. Perihilar infiltrates bilaterally. PLEURA: No significant pleural effusion identified. No pneumothorax apparent. CARDIOVASCULAR: No aortic atherosclerotic calcification present. Normal cardiac size. No pulmonary vascular congestion. OSSEOUS STRUCTURES: No significant abnormalities. VISUALIZED UPPER ABDOMEN: Normal. OTHER FINDINGS: None. IMPRESSION: No evidence of pneumothorax
[2018-11-08] MEDS: Enoxaparin 40 mg Syringe SC SCH (10:18)
--- NOTE | 2018-11-08 14:07 | PN ---
DATE: 11/08/2018 PULMONARY PROGRESS NOTE REFERRING PHYSICIAN: Gerard Gibson MD SUBJECTIVE: The patient is seen sitting up in bed. No acute distress. No overnight events reported. States she did not wear CPAP machine last night. States it was not available for use last night. Reports shortness of breath is better, but still present. Reports slight improvement in cough. No headache, rhinitis, chest pain, abdominal pain, nausea, vomiting, diarrhea or leg pain reported. Does have leg edema. Bilateral lower extremity edema. OBJECTIVE: GENERAL: No acute distress. VITAL SIGNS: Blood pressure 163/67, pulse 76, temperature 97.3 and oxygen saturation 91% on nasal cannula. HEENT: Moist mucous membranes. Mallampati score of 4. NECK: Supple. No JVD. LUNGS: Rhonchi bilaterally. CARDIOVASCULAR: S1 and S2. ABDOMEN: Soft and nontender. No distention. No organomegaly. EXTREMITIES: Bilateral lower extremity edema. NEUROLOGIC: Awake, alert and verbal. Following commands. MEDICATIONS: Reviewed. Tylenol 650 every 6 hours p.r.n. mild pain, Brovana 15 mcg every 12 hours, aspirin 81 mg daily, Lipitor 40 mg at dinner, Pulmicort 0.25 mg inhalation every 12 hours, Colace 100 mg twice a day, doxycycline 100 mg every 12 hours, Lovenox 40 mg subcutaneous daily, ferrous sulfate 324 mg p.o. twice a day, Lasix 20 mg IV push every 8 hours, Synthroid 50 mcg daily, Solu-medrol 20 mg every 8 hours, midodrine 5 mg three times a day, Zofran 4 mg every 6 hours p.r.n. and Protonix 40 mg at bedtime. LABORATORY DATA: Reviewed. WBC 6.6, RBC 3.6, hemoglobin 9, hematocrit 31.6 and platelets 404. Sodium 138, potassium 4.5, chloride 99, carbon dioxide 35, anion gap 8, BUN 15, creatinine 0.7, GFR greater than 60, random glucose 223, calcium 8.4, phosphorus 4.3, magnesium 2.0, total bilirubin 0.3, AST 39, ALT 47, alkaline phosphatase 183, total protein 5.9, albumin 2.5, globulin 3.4, and albumin-globulin ratio 0.7. Procalcitonin level 0.32. TSH 0.72. Pleural fluid shows WBC 1070, RBC 374, total cell count 100, mono nuclear cell 90, polymorphonuclear cell 9.5 and fluid pH 7.0. Echocardiogram report pending. Chest x-ray no evidence of pneumothorax, perihilar infiltrates bilateral. Thoracentesis ultrasound shows 550 mL clear yellow fluid was aspirated. IMPRESSION AND PLAN: Non-small cell lung cancer, chronic obstructive pulmonary lung disease, pleural effusion status post thoracentesis, gastroesophageal reflux disease, hypothyroidism, obesity, anemia, sleep apnea syndrome, pulmonary hypertension. Echocardiogram reports pending. We will followup when available. Continue gastric prophylaxis, inhaled bronchodilators and antibiotic therapy. Procalcitonin level negative. Clinically, the patient has improved status post thoracentesis. Possibly the chronic lung disease, lung cancer. CT scan of the chest ordered to evaluate compression of the bronchus. After CT scan results are available, we will decide followup step in treatment plan. Case discussed with seen Dr. Feliz and Dr. Adames, may need specimen biopsy to determine the type of chemotherapy the patient should be given. Patient has history of orthostatic hypotension. Will order orthostatic vital signs every shift for 24 hours. Will order Cortisol level in AM. At this time, continue present care, physical therapy, head of bed elevated at 45 degrees and sleep apnea precaution. This patient was seen and examined with Dr. Feliz. Discussed assessment and plan as described above. This patient was seen and examined with Juan Richardson, nurse practitioner. Discussed assessment and plan as described above. Thank you for this consult. We will follow with you. Juan Richardson APN Hussein Feliz MD DAVID
--- NOTE | 2018-11-08 18:59 | CARD ---
APPROVED REPORT Date of service: 11/08/2018 EXAM: Two-dimensional and M-mode echocardiogram with Doppler and color Doppler. INDICATION R/O HEART FAILURE...CHEMO 2D DIMENSIONS Left Atrium (2D)5.3 (1.6-4.0cm)IVSd1.0 (0.7-1.1cm) LVDd4.7 (3.9-5.9cm)PWd1.1 (0.7-1.1cm) LVDs3.0 (2.5-4.0cm)FS (%) 35.3 % LVEF (%)64.8 (>50%) M-Mode DIMENSIONS Aortic Root3.70 (2.2-3.7cm)Aortic Cusp Exc.1.90 (1.5-2.0cm) Aortic Valve AoV Peak Tuytyuzy566.0cm/Herminio Peak GR.15mmHg Mitral Valve MV E Hnunycvc817.0cm/sMV A Zsvojwlp254.0cm/sE/A ratio0.9 TDI Lateral E' Peak V12.20cm/sMedial E' Peak V9.94cm/sE/Lateral E'9.5 E/Medial E'11.7 Pulmonary Valve PV Peak Nvfzonsv11.7cm/sPV Peak Grad.4mmHg Tricuspid Valve TR Peak Pasisqrf743zx/sRAP GFVJFQXR91ssPbXV Peak Gr.51mmHg [id number] LEFT VENTRICLE The left ventricle is normal size. There is normal left ventricular wall thickness. The left ventricular function is normal.EF-65% There is normal LV segmental wall motion. Transmitral Doppler flow pattern is Grade III-reversible restrictive diastolic dysfunction. No left ventricle thrombus noted on this study. There is no ventricular septal defect visualized. There is no left ventricular aneurysm. There is no mass noted in the left ventricle. RIGHT VENTRICLE The right ventricle is moderately dilated. There is normal right ventricular wall thickness. Systolic function of RV is moderately reduced. ATRIA The left atrium is mildly dilated. The right atrium is mildly dilated. The interatrial septum is intact with no evidence for an atrial septal defect. AORTIC VALVE The aortic valve is thickened but opens well. There is mild aortic regurgitation. There is no aortic valvular stenosis. There is no aortic valvular vegetation. MITRAL VALVE The mitral valve is thickened but opens well. Mitral regurgitation is trace to mild. There is no mitral valve stenosis. There is no evidence of mitral valve prolapse. TRICUSPID VALVE The tricuspid valve leaflets are thickened , but open well. There is moderate tricuspid regurgitation.RVSP-61 mmof hg. There is moderate pulmonary hypertension. There is no tricuspid valve stenosis. There is no tricuspid valve prolapse or vegetation. PULMONIC VALVE The pulmonary valve is normal in structure. There is trace pulmonic valvular regurgitation. There is no pulmonic valvular stenosis. GREAT VESSELS The aortic root is normal in size. The ascending aorta is normal in size. The pulmonary artery is normal. The IVC is normal in size and collapses >50% with inspiration. PERICARDIAL EFFUSION There is no pleural effusion. There is no pericardial effusion. <Conclusion> The left ventricle is normal size. There is normal left ventricular wall thickness. The left ventricular function is normal.EF-65% The right ventricle is moderately dilated. Systolic function of RV is moderately reduced. There is mild aortic regurgitation. Mitral regurgitation is trace to mild. There is moderate tricuspid regurgitation.RVSP-61 mmof hg. There is moderate pulmonary hypertension. The IVC is normal in size and collapses >50% with inspiration. There is no pericardial effusion.
[2018-11-08] MEDS: Pantoprazole 40 mg EC Tab PO SCH (21:26)
--- NOTE | 2018-11-09 02:29 | CON ---
DATE OF CONSULTATION: 11/08/2018 REASON FOR CONSULTATION: Edema, shortness of breath, hyponatremia. HISTORY OF PRESENTING ILLNESS: A 68-year-old lady with past medical and surgical history of stage III B non-small cell CA of the lung, stage II colon cancer, adeno-CA, COPD, hypertension, hypothyroidism, chronic edema, anemia of chronic disease, osteoarthritis, was admitted yesterday with complaints of shortness of breath, dyspnea on exertion, progressively worsening dyspnea on exertion and fatigue. She had a CT scan of the chest, which showed right-sided pleural effusion with right upper lobe mass-like consolidation. She underwent thoracentesis earlier today. She reports that her breathing is much better post thoracentesis. She also has chronic edema. A consultation is requested for fluid management. PAST MEDICAL AND SURGICAL HISTORY: As mentioned above, stage III B non-small cell CA of the lung, adeno-CA of the colon status post resection, hypertension, obesity, COPD, hypothyroidism, hyperlipidemia, chronic anemia. FAMILY HISTORY: Lung cancer in father, colorectal cancer in brother. SOCIAL HISTORY: Ex-smoker, quit in 1989, social alcohol use, no IV drug abuse. ALLERGIES: NO KNOWN DRUG ALLERGIES. MEDICATIONS AT HOME: Aspirin, Protonix, midodrine 5 t.i.d., Synthroid 50 mcg, Florinef 0.1 p.o. b.i.d., Feosol 324 b.i.d., Colace 100, Lipitor 40, prednisone 20, Bactrim 2 tablets p.o. b.i.d. REVIEW OF SYSTEMS: All systems are reviewed, pertinent positives as mentioned in history of presenting illness, rest unremarkable. PHYSICAL EXAMINATION: GENERAL: Morbidly obese, elderly lady, sitting in chair. VITAL SIGNS: Blood pressure 130/76, heart rate 81, respiratory rate 20, temperature 99.4, T-max is 99.4. HEENT: Normocephalic, atraumatic, positive pallor. NECK: Supple, no JVD. LUNGS: Bilateral equal air entry, bilateral equal expansion, crackles right upper lobe, decreased breath sounds at the right lower lobe. CARDIAC: S1, S2, regular rate and rhythm, no murmur, no rub. ABDOMEN: Obese, distended, soft, nontender, bowel sounds present. EXTREMITIES: 3+ pitting edema of the lower extremities, erythema of the lower extremities. INTAKE AND OUTPUT: 996/200. LABORATORY DATA: WBC 6.6, hemoglobin 9, hematocrit 31.6, platelets 404. Sodium 138, potassium 4.5, chloride 99, CO2 of 35, BUN 15, creatinine 0.7, glucose 223, calcium 8.4, phosphorus 4.3, magnesium 2, AST 39, ALT 47, albumin 2.5. Pleural fluid, slightly cloudy, wbc's 1070, light yellow, pH 7. Blood cultures, no growth. Echocardiogram, normal left ventricular size, EF 65%, systolic function of right ventricle is moderately reduced, moderate tricuspid regurg, moderate pulmonary hypertension. No pericardial effusion. CURRENT MEDICATIONS: Albumin 25 g given, Brovana, Colace, doxycycline 100 every 12 hours, aspirin 81, Feosol 324, Lasix 40 mg IV push given this evening, Lipitor 40, Lovenox, ProAmatine 5 t.i.d., Protonix, Pulmicort, Solu-Medrol 20 IV every 12 hours, Synthroid 50, Tylenol, Zofran. ASSESSMENT: 1. Chronic edema. 2. Moderate pulmonary hypertension. 3. History of orthostatic hypotension. 4. Hyponatremia. 5. Stage III B non-small cell carcinoma of the lung, right pleural effusion. 6. History of adenocarcinoma of the colon, status post resection. 7. Chronic obstructive pulmonary disease exacerbation. PLAN: 1. Currently, the patient is not orthostatic, continue ProAmatine 5 t.i.d. 2. Agree with Lasix 40 IV daily. 3. Keep O's greater than I's. 4. Monitor urine output. 5. Monitor electrolytes. 6. We will consider restarting Florinef if orthostatic hypotension recurs. Tamiko Jang MD
[2018-11-09] MEDS: Levothyroxine 50 MCG TAB PO SCH (05:31)
[2018-11-09] MEDS: MethylPREDNISolone 40 mg Vial IVP SCH ×2 (05:31→21:35)
[2018-11-09 06:48] LABS: BASO # 0.01 K/mm3 (0.0-2.0); BASO % 0.1 % (0.0-3.0); HEMOGLOBIN 8.2 g/dL (12.0-16.0); LYMPH # 0.8 (1.2-3.4); LYMPH % 7.7 % (22.0-35.0); MEAN CORPUSCULAR HEMOGLOBIN 24.6 pg (25.0-35.0); MEAN CORPUSCULAR HGB CONC 29.5 g/dl (31.0-37.0); MEAN PLATELET VOLUME 9.5 fl (7.0-11.0); MONO # 0.9 (0.1-0.6); MONO % 8.5 % (1.0-6.0); RBC 3.34 10^6/uL (3.5-6.1); RED CELL DISTRIBUTION WIDTH 19.2 % (11.5-14.5)
[2018-11-09 07:14] LABS: ALB/GLOB RATIO 0.8 (1.1-1.8); ALBUMIN 2.6 g/dL (3.0-4.8); ALT/SGPT 44 U/L (7-56); AST/SGOT 29 U/L (14-36); BLOOD UREA NITROGEN 18 mg/dL (7-21); CALCIUM 8.6 mg/dL (8.4-10.5); GFR NON-AFRICAN AMERICAN > 60
[2018-11-09] MEDS ORDERED: Dextrose 50% SYRINGE Inj (50 ml) IV PRN (07:17)
[2018-11-09] MEDS: Budesonide 0.5 mg/2 ml Inhal Susp UD IH SCH ×2 (08:52→19:42)
[2018-11-09] MEDS: Arformoterol 15 mcg/2 ml Inh Sol IH SCH ×2 (08:52→19:42)
--- NOTE | 2018-11-09 10:02 | CT ---
Date of service: 11/09/2018 PROCEDURE: CT Chest without contrast HISTORY: evaluation of lung nodules COMPARISON: CT 11/07/2018 TECHNIQUE: Contiguous axial images were obtained through the chest without intravenous contrast enhancement. Sagittal and coronal reconstructions were performed. Radiation dose: Total exam DLP = 855.81 mGy-cm. This CT exam was performed using one or more of the following dose reduction techniques: Automated exposure control, adjustment of the mA and/or kV according to patient size, and/or use of iterative reconstruction technique. FINDINGS: LUNGS: A thoracentesis has been performed since the previous study. There is a minimal right effusion. There has been improvement in the consolidation adjacent to the effusion in the right lower lobe. There is no change in the right upper lobe consolidation and air bronchograms. The 2.5 cm right lower lobe mass is better seen on the current study. Interstitial changes are seen in the left upper lobe MEDIASTINUM: Unremarkable thoracic aorta. No aneurysm. Moderate cardiomegaly main pulmonary artery unremarkable. No vascular congestion. Mediastinal adenopathy unchanged. There is a 3.4 cm pretracheal lymph node and 3.3 cm sub carinal lymph node. Aortic calcification PLEURA: No pleural fluid. No pneumothorax. BONES: No fracture. No destructive lesion. UPPER ABDOMEN: Aortic calcification OTHER FINDINGS: None. IMPRESSION: A thoracentesis has been performed since the previous study. There is a minimal right effusion. There has been improvement in the consolidation adjacent to the effusion in the right lower lobe. There is no change in the right upper lobe consolidation and air bronchograms. The 2.5 cm right lower lobe mass is better seen on the current study. Interstitial changes are seen in the left upper lobe
--- NOTE | 2018-11-09 10:05 | CP.PCM.PCO ---
Physician Communication Note - Physician Communication Note Physician Communication Note: CHF-D, COPD continue lasix and solumedrol
[2018-11-09] MEDS: Enoxaparin 40 mg Syringe SC SCH (10:19)
[2018-11-09] MEDS: Insulin Reg-MEDIUM-Coverage SC SCH ×4 (10:20→21:34)
--- NOTE | 2018-11-09 10:42 | CP.PCM.PN ---
Subjective - Date & Time of Evaluation Date of Evaluation: 11/09/18 Time of Evaluation: 08:15 - Subjective Subjective: Pool Nolasco PGY2 - Progress Note for Dr. Adames Patient seen and evaluated at bedside. No acute events reported overnight. Patient continues to express lower extremity edema and managable respirations. Patient denies chest pain, abdominal pain, nausea, vomiting, fever, chills. Objective - Vital Signs/Intake and Output Vital Signs (last 24 hours): Temp Pulse Resp BP Pulse Ox 97.3 F L 77 18 125/73 94 L 11/09/18 05:38 11/09/18 10:00 11/09/18 10:00 11/09/18 10:19 11/09/18 10:00 Intake and Output: 11/09/18 11/09/18 06:59 18:59 Intake Total 1436 Output Total 502 Balance 934 - Medications Medications: Current Medications Acetaminophen (Tylenol 325mg Tab) 650 mg PO Q6H PRN PRN Reason: Pain, Mild (1-3) Arformoterol Tartrate (Brovana) 15 mcg IH [id number] [facility] Last Admin: 11/09/18 08:52 Dose: 15 mcg Aspirin (Ecotrin) 81 mg PO DAILY [facility] Last Admin: 11/09/18 10:18 Dose: 81 mg Atorvastatin Calcium (Lipitor) 40 mg PO DIN [facility] Last Admin: 11/08/18 17:19 Dose: 40 mg Budesonide (Pulmicort Respules) 0.5 mg IH [id number] [facility] Last Admin: 11/09/18 08:52 Dose: 0.5 mg Dextrose (Dextrose 50% Inj) 0 ml IV STAT PRN; Protocol PRN Reason: Hypoglycemia Protocol Docusate Sodium (Colace) 100 mg PO BID [facility] Last Admin: 11/09/18 10:18 Dose: 100 mg Doxycycline Hyclate (Doryx) 100 mg PO Q12 [facility]; Protocol Last Admin: 11/09/18 10:18 Dose: 100 mg Enoxaparin Sodium (Lovenox) 40 mg SC DAILY [facility]; Protocol Last Admin: 11/09/18 10:19 Dose: 40 mg Ferrous Sulfate (Feosol) 324 mg PO BID [facility] Last Admin: 11/09/18 10:18 Dose: 324 mg Furosemide (Lasix) 40 mg IVP DAILY [facility] Stop: 11/10/18 16:01 Last Admin: 11/09/18 10:19 Dose: 40 mg Furosemide (Lasix) 40 mg IV DAILY [facility] Last Admin: 11/09/18 10:20 Dose: Not Given Albumin Human (Albumin Human 25% (25 Gm/100 Ml)) 100 mls @ 1 mls/min IVPB DAILY [facility] Stop: 11/10/18 16:00 Last Admin: 11/08/18 17:19 Dose: 1 mls/min Dextrose (Dextrose 5% In Water 1000 Ml) 1,000 mls @ 0 mls/hr IV .Q0M PRN; Andrey col PRN Reason: Hypoglycemia Protocol Insulin Human Regular (Humulin R Med) 0 units SC ACHS [facility]; Protocol Last Admin: 11/09/18 10:20 Dose: Not Given Levothyroxine Sodium (Synthroid) 50 mcg PO 0600 [facility] Last Admin: 11/09/18 05:31 Dose: 50 mcg Methylprednisolone (Solu-Medrol) 20 mg IVP Q8 [facility] Last Admin: 11/09/18 05:31 Dose: 20 mg Midodrine (Proamatine) 5 mg PO TID [facility] Last Admin: 11/09/18 10:19 Dose: Not Given Ondansetron HCl (Zofran Inj) 4 mg IVP Q6H PRN PRN Reason: Nausea/Vomiting Pantoprazole Sodium (Protonix Ec Tab) 40 mg PO HS [facility] Last Admin: 11/08/18 21:26 Dose: 40 mg - Labs Labs: 11/09/18 05:45 11/09/18 05:45 PT 14.2 SECONDS (9.4-12.5) H 11/07/18 13:10 INR 1.26 11/07/18 13:10 APTT 30.3 Seconds (26.9-38.3) 11/07/18 13:10 - Constitutional Appears: No Acute Distress - Head Exam Head Exam: ATRAUMATIC, NORMOCEPHALIC - Eye Exam Eye Exam: EOMI, PERRL - ENT Exam ENT Exam: Mucous Membranes Moist - Neck Exam Neck Exam: Full ROM - Respiratory Exam Respiratory Exam: NORMAL BREATHING PATTERN Additional comments: rhonic R>L dimished breath sounds R>L - Cardiovascular Exam Cardiovascular Exam: +S1, +S2 - GI/Abdominal Exam GI & Abdominal Exam: Soft, Normal Bowel Sounds. absent: Firm, Guarding, Rigid - Extremities Exam Extremities Exam: Pedal Edema Additional comments: erythema and edema appreciated bilaterally - Neurological Exam Neurological Exam: Alert, Awake, CN II-XII Intact, Oriented x3 Additional comments: motor and sensory grossly intact - Psychiatric Exam Psychiatric exam: Normal Affect, Normal Mood - Skin Skin Exam: Dry, Warm Assessment and Plan - Assessment and Plan (Free Text) Assessment: 68 year old female with PMH of stage IIIb NSCLC of RUL, stage II colon adenocarcinoma (s/p resection), COPD, HTN, hypothyroidism, HLD, anemia of chronic disease, and OA admitted for management of R-sided malignant pleural effusion. Plan: R-sided Pleural effusion -Etiology: Likely malignant vs. less likely infectious vs. inflammatory -IR, Dr. Jimenez, consulted for thoracentesis -Pulmonology consulted as BAL will be needed to further characterize the etiology of her respiratory compromise - Conversations with Dr. Feliz had and will await further recommendations - Request for Chest CT without contrast placed, follow up imaging -CHest CT pending official read -Continue brovana, solumedrol, pulmicort, supplemental O2 to maintain SpO2 > 95% Chronic lower extremity edema secondary to lymphedema vs. low albumin state - Fluid status in question will consult Dr. Richards for recommendations - Continue with IV lasix 40mg - Recommend O>I, monitor fluid status, lytes - Consider florinef restart if orthostatitic - IV albumin 25mg daily x 3 days which will be followed with IV lasix 40mg for three days Protein calorie malnutrition - Calorie count - Dietary referral, follow up recommendations Stage IIIb NSCLC -Continue xalkori for now -Consider radiation vs. additional therapy if resp comprimise 2/2 worsening tumor burden Normocytic anemia -Most likely 2/2 iron deficiency and anemia of chronic disease -Continue iron supplementation -Hemoglobin showing trend downward with 8.2 Hgb today -Continue to trend H/H with plans for transfusion with goal Hgb >7 HTN -Continue home meds with holding parameters - Echocardiogram: EF 65%, RV mod dilated, RVSP 61 - moderate TR, mod Pulm HTN Hypothyroidism -Continue home synthroid dose -TSH levels indicate controlled (TSH 0.72) HLD -Continue home lipitor Hyperglycemia -Likely secondary to steroid usage -ISS medium -ACHS DVT/GI PPX: Lovenox/protonix Full Code HHD Monitor on telemetry Patient seen, examined with, and plan discussed with attending Dr. Adames
--- NOTE | 2018-11-09 12:37 | PN ---
DATE: 11/09/2018 REFERRING PHYSICIAN: Gerard Gibson MD SUBJECTIVE: The patient is seen sitting at bedside. No acute distress. No overnight events reported. Reports still having some cough and shortness of breath with exertion but they have improved. No headache, rhinitis, chest pain, abdominal pain, nausea, vomiting, diarrhea or leg pain reported. The patient still has leg swelling. Reports using CPAP machine last night. OBJECTIVE: VITAL SIGNS: Blood pressure 125/73, pulse 77, temperature 97.3 and oxygen saturation 94% on nasal cannula. GENERAL: No acute distress. HEENT: Moist mucous membranes. Mallampati score of 4. NECK: Supple. No JVD. LUNGS: Few scattered rhonchi. CARDIOVASCULAR: S1 and S2. ABDOMEN: Soft and nontender. No distention. No organomegaly. EXTREMITIES: Bilateral lower extremity edema. NEUROLOGIC: Awake, alert and verbal. Following commands. MEDICATIONS: Reviewed. Tylenol 650 every 6 hours p.r.n. mild pain, albumin 25 g in 100 mL, 100 mL at 1 mL per minute daily, Brovana 15 mcg every 12 hours, aspirin 81 mg daily, Lipitor 40 mg at dinner, Pulmicort 0.5 mg inhalation every 12 hours, Colace 100 mg twice a day, doxycycline 100 mg every 12 hours, Lovenox 40 mg subcutaneous daily, ferrous sulfate 324 mg twice a day, Lasix 40 mg daily, insulin R sliding scale a.c. and h.s., Synthroid 50 mcg daily, Solu-Medrol 20 mg IV push every 8 hours, midodrine 5 mg three times a day, Zofran 4 mg every 6 hours p.r.n., Protonix 40 mg at bedtime. LABORATORY DATA: Reviewed. WBC 10, RBC 3.34, hemoglobin 8.2, hematocrit 27.8 and platelets 471. Sodium 137, potassium 3.8, chloride 96, carbon dioxide 35, anion gap 10, BUN 18, creatinine 0.6, GFR greater than 60, POC glucose 260, random glucose 316, calcium 8.6, total bilirubin 0.2, AST 29, ALT 44, alkaline phosphatase 138, total protein 5.9, albumin 2.6, globulin 3.3, albumin-globulin ratio 0.8, and TSH 0.72. Pleural fluid preliminary fungus culture, no fungal elements seen. Pleural fluid preliminary culture, no growth after 24 hours. Pleural fluid culture preliminary, no growth after 24 hours. Mycobacterial culture preliminary shows no acid-fast bacilli seen. Blood cultures preliminary, no growth after 24 hours. Echocardiogram, ejection fraction 65%, moderate tricuspid regurgitation, RVSP 61, moderate pulmonary hypertension, mild aortic regurgitation, [id number] mitral regurgitation, no pericardia effusion. Chest CT shows minimal right effusion, improvement in consolidation adjacent to the effusion in the right lower lobe. No change in right upper lobe consolidation in air bronchogram, 2.5 cm right lower lobe mass is better seen on the current study, interstitial changes seen in the left upper lobe. IMPRESSION AND PLAN: Non-small cell lung cancer, chronic obstructive lung disease, pleural effusion, status post thoracentesis, gastroesophageal reflux disease, hypothyroidism, obesity, anemia, sleep apnea syndrome, pulmonary hypertension. The patient noted with elevated glucose levels today. We will decrease Solu-Medrol to 20 mg every 12 hours. We will continue to monitor blood glucose level. If continues to be elevated, may need to put the patient on oral medication. Orthostatic hypotension, vital signs were done; lying the patient was 145/79, sitting 137/77, standing 130/76, showing some orthostatic hypotension. Fall precautions. We will order Sky wraps to bilateral lower extremities. Recommend physical therapy. Continue inhaled bronchodilators, gastric prophylaxis, antibiotic therapy. Continue Oncology/Hematology followup. Sleep apnea precaution, head of bed elevated at 45 degrees. Recommend full pulmonary function test as outpatient to evaluate chronic lung disease and optimize pulmonary medications. This patient was seen and examined with Dr. Feliz. Discussed assessment and plan as described above. This patient was seen and examined with Juan Richardson, nurse practitioner. Discussed assessment and plan as described above. Thank you for this consult. We will follow with you. Juan Richardson APN Hussein Feliz MD
[2018-11-09] MEDS: Pantoprazole 40 mg EC Tab PO SCH (21:35)
--- NOTE | 2018-11-09 22:55 | PN ---
DATE: 11/09/2018 SUBJECTIVE: The patient is seen sitting in bed. She is awake. She is alert. She is comfortable. She reports her breathing is somewhat better. She reports that her lower extremity edema is unchanged. She denies any dizziness. PHYSICAL EXAMINATION: GENERAL: Elderly lady sitting in bed. VITAL SIGNS: Blood pressure 125/70, sitting blood pressure is 142/70, standing blood pressure is 138/71. Heart rate 76, respiratory rate 20, temperature 97.9. HEENT: Normocephalic, atraumatic, positive pallor. NECK: Supple, no JVD. LUNGS: Bilateral equal entry, bilateral equal expansion, decreased breath sounds at right base. CARDIAC: S1 and S2, regular rate and rhythm, no murmur, no rub. ABDOMEN: Obese, distended, soft, nontender, bowel sounds present. EXTREMITIES: Erythema of the lower extremities, 3+ pitting edema of the lower extremities. INTAKE AND OUTPUT: 1536/500. LABORATORY DATA: WBC 10, hemoglobin 8.2, hematocrit 27.8, platelets 471. Sodium 137, potassium 3.8, chloride 95, CO2 of 35, BUN 18, creatinine 0.6, glucose 316, calcium 8.6, AST 29, ALT 44, albumin 2.6. Blood cultures, no growth. CURRENT MEDICATIONS: Albumin 25 g daily, Brovana, Colace, doxycycline 100 every 12 hours, aspirin, Feosol, Lasix 40 IV daily, Lipitor 40, Lovenox 40, midodrine 5 t.i.d., Protonix, Solu-Medrol, Synthroid. ASSESSMENT: 1. History of orthostatic hypotension, currently no evidence of orthostatic hypotension. Continue ProAmatine 5 t.i.d. 2. Chronic lower extremity edema. 3. Stage IIIB non-small cell carcinoma of the lung. 4. Right pleural effusion. 5. Chronic obstructive pulmonary disease exacerbation. 6. Obesity. 7. History of hyponatremia in the past. PLAN: 1. Continue ProAmatine 5 t.i.d. 2. Agree with the Lasix 40 IV b.i.d. 3. Agree with potassium supplementation. 4. Monitor vital signs in three positions every day. 5. Monitor urine output closely. 6. Monitor daily weights. Tamiko Jang MD [facility] # [id number]
[2018-11-10] MEDS: Levothyroxine 50 MCG TAB PO SCH (05:28)
[2018-11-10 06:48] LABS: BASO # 0.02 K/mm3 (0.0-2.0); BASO % 0.2 % (0.0-3.0); EOS % 0.1 % (1.5-5.0); HEMOGLOBIN 8.4 g/dL (12.0-16.0); LYMPH # 0.6 (1.2-3.4); LYMPH % 5.9 % (22.0-35.0); MEAN CELL VOLUME 86.8 fl (80.0-105.0); MEAN CORPUSCULAR HEMOGLOBIN 24.7 pg (25.0-35.0); MEAN CORPUSCULAR HGB CONC 28.5 g/dl (31.0-37.0); MEAN PLATELET VOLUME 9.6 fl (7.0-11.0); MONO # 1.3 (0.1-0.6); MONO % 13.1 % (1.0-6.0); RBC 3.4 10^6/uL (3.5-6.1); RED CELL DISTRIBUTION WIDTH 19.5 % (11.5-14.5); WHITE BLOOD COUNT 9.6 10^3/uL (4.5-11.0)
[2018-11-10 07:04] LABS: ALBUMIN 2.9 g/dL (3.0-4.8); ALT/SGPT 44 U/L (7-56); AST/SGOT 26 U/L (14-36); BLOOD UREA NITROGEN 19 mg/dL (7-21); CALCIUM 8.8 mg/dL (8.4-10.5); GFR NON-AFRICAN AMERICAN > 60
[2018-11-10] MEDS: Insulin Reg-MEDIUM-Coverage SC SCH (08:03)
[2018-11-10] MEDS: Budesonide 0.5 mg/2 ml Inhal Susp UD IH SCH ×2 (08:15→19:49)
[2018-11-10] MEDS: Arformoterol 15 mcg/2 ml Inh Sol IH SCH ×2 (08:15→19:49)
--- NOTE | 2018-11-10 08:25 | CP.PCM.PN ---
Subjective - Date & Time of Evaluation Date of Evaluation: 11/10/18 Time of Evaluation: 08:20 - Subjective Subjective: Pool [place]olasco PGY2 - Progress Note for Dr. Adames No acute events reported overnight. Patient with stable respiratory effort. Patient with continued lower extremity edema secondary lymphadenopathy as well as erythema. Objective - Vital Signs/Intake and Output Vital Signs (last 24 hours): Temp Pulse Resp BP Pulse Ox 97.4 F L 73 19 132/79 92 L 11/10/18 05:52 11/10/18 05:52 11/10/18 05:52 11/10/18 05:52 11/10/18 05:52 Intake and Output: 11/10/18 11/10/18 06:59 18:59 Intake Total 2300 Output Total 700 Balance 1600 - Medications Medications: Current Medications Acetaminophen (Tylenol 325mg Tab) 650 mg PO Q6H PRN PRN Reason: Pain, Mild (1-3) Arformoterol Tartrate (Brovana) 15 mcg IH [id number] [facility] Last Admin: 11/10/18 08:15 Dose: 15 mcg Aspirin (Ecotrin) 81 mg PO DAILY [facility] Last Admin: 11/09/18 10:18 Dose: 81 mg Atorvastatin Calcium (Lipitor) 40 mg PO DIN [facility] Last Admin: 11/09/18 17:15 Dose: 40 mg Budesonide (Pulmicort Respules) 0.5 mg IH [id number] [facility] Last Admin: 11/10/18 08:15 Dose: 0.5 mg Dextrose (Dextrose 50% Inj) 0 ml IV STAT PRN; Protocol PRN Reason: Hypoglycemia Protocol Docusate Sodium (Colace) 100 mg PO BID [facility] Last Admin: 11/09/18 17:15 Dose: 100 mg Doxycycline Hyclate (Doryx) 100 mg PO Q12 [facility]; Protocol Last Admin: 11/09/18 21:35 Dose: 100 mg Enoxaparin Sodium (Lovenox) 40 mg SC DAILY [facility]; Protocol Last Admin: 11/09/18 10:19 Dose: 40 mg Ferrous Sulfate (Feosol) 324 mg PO BID [facility] Last Admin: 11/09/18 17:15 Dose: 324 mg Furosemide (Lasix) 40 mg IVP DAILY [facility] Stop: 11/10/18 16:01 Last Admin: 11/09/18 10:19 Dose: 40 mg Furosemide (Lasix) 40 mg IV DAILY [facility] Last Admin: 11/09/18 10:20 Dose: Not Given Albumin Human (Albumin Human 25% (25 Gm/100 Ml)) 100 mls @ 1 mls/min IVPB DAILY [facility] Stop: 11/10/18 16:00 Last Admin: 11/09/18 14:18 Dose: 1 mls/min Dextrose (Dextrose 5% In Water 1000 Ml) 1,000 mls @ 0 mls/hr IV .Q0M PRN; Protocol PRN Reason: Hypoglycemia Protocol Insulin Human Regular (Humulin R Med) 0 units SC ACHS [facility]; Protocol Last Admin: 11/10/18 08:03 Dose: 3 units Levothyroxine Sodium (Synthroid) 50 mcg PO 0600 [facility] Last Admin: 11/10/18 05:28 Dose: 50 mcg Methylprednisolone (Solu-Medrol) 20 mg IVP Q12 [facility] Last Admin: 11/09/18 21:35 Dose: 20 mg Midodrine (Proamatine) 5 mg PO TID [facility] Last Admin: 11/09/18 18:00 Dose: Not Given Ondansetron HCl (Zofran Inj) 4 mg IVP Q6H PRN PRN Reason: Nausea/Vomiting Pantoprazole Sodium (Protonix Ec Tab) 40 mg PO HS [facility] Last Admin: 11/09/18 21:35 Dose: 40 mg - Labs Labs: 11/10/18 06:30 11/10/18 06:30 PT 14.2 SECONDS (9.4-12.5) H 11/07/18 13:10 INR 1.26 11/07/18 13:10 APTT 30.3 Seconds (26.9-38.3) 11/07/18 13:10 - Constitutional Appears: No Acute Distress - Head Exam Head Exam: ATRAUMATIC, NORMOCEPHALIC - Eye Exam Eye Exam: EOMI, PERRL - ENT Exam ENT Exam: Mucous Membranes Dry - Neck Exam Neck Exam: Full ROM - Respiratory Exam Respiratory Exam: Decreased Breath Sounds (R>L), NORMAL BREATHING PATTERN - Cardiovascular Exam Cardiovascular Exam: REGULAR RHYTHM, +S1, +S2 - GI/Abdominal Exam GI & Abdominal Exam: Soft, Normal Bowel Sounds - Extremities Exam Additional comments: bilateral lower extremity edema, mild erythema - Neurological Exam Neurological Exam: Alert, Awake, Oriented x3 Additional comments: motor and sensory grossly intact - Psychiatric Exam Psychiatric exam: Normal Affect, Normal Mood - Skin Skin Exam: Dry, Warm Assessment and Plan - Assessment and Plan (Free Text) Assessment: 68 year old female with PMH of stage IIIb NSCLC of RUL, stage II colon adenocarcinoma (s/p resection), COPD, HTN, hypothyroidism, HLD, anemia of chronic disease, and OA admitted for management of R-sided malignant pleural effusion. Plan: R-sided Pleural effusion -Etiology: Likely malignant vs. less likely infectious vs. inflammatory -IR, Dr. Jimenez, consulted for thoracentesis -Pulmonology consulted as BAL will be needed to further characterize the etiology of her respiratory compromise -Chest CT showing: -Conversations with Dr. Feliz regarding further workup conducted, looks less likely need for BAL or stenting of bronchus based off conversations between Dr. Adames and Dr. Feliz -Continue brovana, solumedrol, pulmicort, supplemental O2 to maintain SpO2 > 95% Chronic lower extremity edema secondary to lymphedema vs. low albumin state - Fluid status in question will consult Dr. Richards for recommendations - Recommend lasix 40mg BID - - IV albumin 25mg daily x 3 days which will be followed with IV lasix 40mg for three days( day 3/3/) Protein calorie malnutrition - Calorie count - Dietary referral, follow up recommendations Stage IIIb NSCLC -Continue xalkori for now -Consider radiation vs. additional therapy if resp comprimise 2/2 worsening t umor burden Normocytic anemia -Most likely 2/2 iron deficiency and anemia of chronic disease -Continue iron supplementation -Hemoglobin showing trend downward with 8.2 Hgb today -Continue to trend H/H with plans for transfusion with goal Hgb >7 HTN -Continue home meds with holding parameters - Echocardiogram: EF 65%, RV mod dilated, RVSP 61 - moderate TR, mod Pulm HTN Hypothyroidism -Continue home synthroid dose -TSH levels indicate controlled (TSH 0.72) HLD -Continue home lipitor Hyperglycemia -Likely secondary to steroid usage -ISS medium -ACHS DVT/GI PPX: Lovenox/protonix Full Code HHD Monitor on telemetry Patient seen, examined with, and plan discussed with attending Dr. Adames
[2018-11-10] MEDS: MethylPREDNISolone 40 mg Vial IVP SCH ×2 (09:52→21:14)
[2018-11-10] MEDS: Enoxaparin 40 mg Syringe SC SCH (09:52)
--- NOTE | 2018-11-10 11:35 | PN ---
DATE: 11/10/2018 PULMONARY PROGRESS NOTE REFERRING PHYSICIAN: Gerard Gibson MD SUBJECTIVE: The patient is seen sitting in armchair in room. No acute distress. No overnight events reported. Reports using CPAP machine last night. Reports still having shortness of breath with exertion, still some coughing. No headache, rhinitis, chest pain, abdominal pain, nausea, vomiting, diarrhea or leg pain reported. Leg swelling still continues. OBJECTIVE: GENERAL: No acute distress. VITAL SIGNS: Blood pressure 132/79, pulse 73, temperature 97.4 and oxygen saturation 92% on nasal cannula. HEENT: Moist mucous membranes. Mallampati score of 4. NECK: Supple. No JVD. LUNGS: Few scattered rhonchi. CARDIOVASCULAR: S1 and S2. ABDOMEN: Soft and nontender. No distention. No organomegaly. EXTREMITIES: Bilateral lower extremity edema. NEUROLOGIC: Awake, alert and verbal. Following commands. MEDICATIONS: Reviewed. Tylenol 650 every 6 hours p.r.n. mild pain, albumin 25 g in 100 mL, the 100 mL at 1 mL per minute daily, Brovana 15 mcg every 12 hours, aspirin 81 mg daily, Lipitor 40 mg at dinner, Pulmicort 0.5 mg inhalation every 12 hours, Colace 100 mg twice a day, doxycycline 100 mg every 12 hours, Lovenox 40 mg subcutaneous daily, ferrous sulfate 324 mg twice a day, Lasix 40 mg IV daily, Humulin R sliding scale a.c. and at bedtime, Synthroid 50 mcg daily, Solu-medrol 20 mg IV push every 12 hours, midodrine 5 mg p.o. three times a day, Zofran 4 mg IV push every 6 hours p.r.n. and Protonix 40 mg at bedtime. LABORATORY DATA: Reviewed. WBC 9.6, RBC 3.4, hemoglobin 8.4, hematocrit 29.5 and platelets 461. Sodium 139, potassium 4.5, chloride 100, carbon dioxide 39, anion gap 5, BUN 19, creatinine 0.7, GFR is greater than 60, POC glucose 234, random glucose 242, calcium 8.8, total bilirubin 0.2, AST 26, ALT 44, alkaline phosphatase 123, total protein 5.9, albumin 2.9, globulin 3.0, and albumin-globulin ratio 1.0. Pleural fluid culture preliminary no growth after 2 days. Fungal culture preliminary, no fungal element seen. Mycobacterial culture preliminary shows no acid fast bacilli seen. blood cultures preliminary no growth after 48 hours. IMPRESSION AND PLAN: Non-small cell lung cancer, chronic obstructive lung disease, pleural effusion status post thoracentesis, gastroesophageal reflux disease, hypothyroidism, obesity, anemia, sleep apnea syndrome, pulmonary hypotension, history of orthostatic hypotension and history of hyponatremia. Blood glucose levels still continue to be elevated. We will start the patient on Prandin [address] scan showing no change in right upper lobe consolidation air bronchograms. Procalcitonin levels are negative which indicates it is not bacterial pneumonia, may be atelectasis, may be part of heart failure. We will continue diuretics and steroids. Continue continuous positive airway pressure use at this time. Dr. Feliz discussed case with Dr. Adames. Continue inhaled bronchodilators, gastric prophylaxis, sleep apnea precaution, head of bed elevated at 45 degrees and deep venous thrombosis prophylaxis. Continue antibiotic therapy. Fall precautions. Physical therapy. Continue Sky wraps to bilateral lower extremities. Recommend full pulmonary function test as outpatient to evaluate chronic lung disease and to optimize pulmonary medications. Need to continue to followup and monitor labs. This patient was seen and examined with Dr. Feliz. Discussed assessment and plan as described above. This patient was seen and examined with Juan Richardson nurse practitioner. Discussed assessment and plan as described above. Thank you for this consult. We will follow with you. Juan Richardson APN Hussein Feliz MD
[2018-11-10] MEDS: Insulin Reg-HIGH-Coverage SC SCH ×3 (12:26→21:11)
--- NOTE | 2018-11-10 13:02 | PN ---
DATE: 11/10/2018 SUBJECTIVE: The patient is seen sitting in bed. She is awake. She is alert. She is comfortable. She denies any dizziness. She denies any lightheadedness. She complains of lower extremity edema. PHYSICAL EXAMINATION: GENERAL: Elderly lady sitting in bed. VITAL SIGNS: Blood pressure 130/80, heart rate 73, respiratory rate 18, temperature 97.4. NECK: Supple, no JVD. LUNGS: Bilateral equal air entry, bilateral equal expansion, rhonchi entire right lung field, expiratory wheeze. CARDIAC: S1 and S2, regular rate and rhythm, no murmur, no rub. ABDOMEN: Obese, distended, soft, nontender, bowel sounds present. EXTREMITIES: 3+ pitting edema involving the lower extremities, erythema of the lower extremities. INTAKE AND OUTPUT: 2300/700. LABORATORY DATA: WBC 9.6, hemoglobin 8.4, hematocrit 29.5, platelets 461. Sodium 139, potassium 4.5, chloride 100, CO2 of 39, BUN 19, creatinine 0.7, glucose 242, calcium 8.8, AST 26, ALT 44, albumin 2.9. CURRENT MEDICATIONS: Albumin 25 g daily, Brovana, Colace, doxycycline 100 every 12 hours, Ecotrin 81, Feosol 324 b.i.d., Lasix 40 IV daily, Lipitor 40, Lovenox 40, Prandin 1 mg, ProAmatine 5 t.i.d., Protonix, Solu-Medrol, Synthroid. ASSESSMENT: 1. Past history of hyponatremia, currently sodium is normal. 2. Past history of orthostatic hypotension, currently blood pressure is well controlled on ProAmatine 5 t.i.d. 3. Persistent 3+ lower extremity edema. 4. Status post shortness of breath secondary to right pleural effusion, much improved after thoracentesis. 5. Non-small cell carcinoma of the lung, stage IIIB. 6. Non-insulin dependent diabetes mellitus. 7. Chronic obstructive pulmonary disease. PLAN: 1. Increase Lasix to 40 mg IV every 12 hours. 2. Monitor urine output closely. 3. Monitor daily labs. 4. Monitor daily weights. 5. Replace potassium as needed. 6. Monitor vital signs in three positions every day. Tamiko Jang MD [facility] # [id number]
--- NOTE | 2018-11-10 14:18 | CP.PCM.PCO ---
Physician Communication Note - Physician Communication Note Physician Communication Note: possible bronchoscopy and biopsy as per Dr. Adames
[2018-11-10] MEDS: Pantoprazole 40 mg EC Tab PO SCH (21:15)
[2018-11-10] MEDS ORDERED: Insulin Detemir 100 units/ml Vial (Levemir) SC SCH (22:30)
[2018-11-11 06:16] LABS: BASO # 0.02 K/mm3 (0.0-2.0); BASO % 0.2 % (0.0-3.0); EOS % 0.1 % (1.5-5.0); HEMOGLOBIN 8.9 g/dL (12.0-16.0); LYMPH # 0.8 (1.2-3.4); LYMPH % 8.7 % (22.0-35.0); MEAN CELL VOLUME 86.9 fl (80.0-105.0); MEAN CORPUSCULAR HEMOGLOBIN 24.7 pg (25.0-35.0); MEAN CORPUSCULAR HGB CONC 28.4 g/dl (31.0-37.0); MEAN PLATELET VOLUME 9.4 fl (7.0-11.0); MONO # 0.9 (0.1-0.6); MONO % 10.2 % (1.0-6.0); RBC 3.6 10^6/uL (3.5-6.1); RED CELL DISTRIBUTION WIDTH 19.5 % (11.5-14.5); WHITE BLOOD COUNT 8.9 10^3/uL (4.5-11.0)
[2018-11-11] MEDS: Levothyroxine 50 MCG TAB PO SCH (06:46)
[2018-11-11 06:54] LABS: ALB/GLOB RATIO 0.9 (1.1-1.8); ALT/SGPT 33 U/L (7-56); AST/SGOT 21 U/L (14-36); BLOOD UREA NITROGEN 17 mg/dL (7-21); CALCIUM 8.6 mg/dL (8.4-10.5); GFR NON-AFRICAN AMERICAN > 60
[2018-11-11] MEDS: Budesonide 0.5 mg/2 ml Inhal Susp UD IH SCH ×2 (08:00→19:35)
[2018-11-11] MEDS: Arformoterol 15 mcg/2 ml Inh Sol IH SCH ×2 (08:00→19:35)
[2018-11-11] MEDS: Insulin Lispro 1 UNITS/0.01 ML SC SCH ×3 (09:11→17:19)
[2018-11-11] MEDS: Insulin Lispro (humaLOG) LOW Coverage SC SCH ×4 (09:11→22:17)
[2018-11-11] MEDS: MethylPREDNISolone 40 mg Vial IVP SCH (09:12)
[2018-11-11] MEDS: Enoxaparin 40 mg Syringe SC SCH (09:13)
--- NOTE | 2018-11-11 12:59 | PN ---
DATE: 11/11/2018 LOCATION: Room 375. SUBJECTIVE: This is a 68-year-old female with non-small cell lung carcinoma, presenting here with progressive shortness of breath with underlying COPD and has been started on IV steroid therapy with transient hyperglycemic accelerations as noted thereof. Her glucose levels overnight have ranged from 255 to 260 mg/dL. Her chemistries today showed a BUN of 17, sodium 142, potassium 3.9, chloride 97, CO2 of 39, glucose 206 and creatinine 0.5. ASSESSMENT: This is a 68-year-old female with uncontrolled and decompensated type 2 insulin-requiring diabetes with transient hyperglycemic accelerations related to the intercurrent intravenous steroid therapy as given with no prior diabetic history nor any intake of oral hypoglycemic therapy thereof. She has significant history of stage IIIB non-small cell lung carcinoma with also prior history of colonic carcinoma with partial right hemicolectomy as noted. PLAN OF MANAGEMENT: We will continue the low-dose correction scale using Humalog insulin as given. We will increase her basal insulin with Levemir to be given as 14 units subcu at bedtime daily to start tonight. We will titrate incrementally as indicated to optimize metabolic control. We will also continue the low-dose Humalog given as 4 units t.i.d. before meals as ordered and we will titrate accordingly to optimize her metabolic goals at least for inpatient diabetic management. We are giving the insulin therapy only for inpatient diabetic management. We will obtain serial chemistries and supplement accordingly needed. We will follow. Crystal Mcgregor MD
--- NOTE | 2018-11-11 13:08 | CON ---
DATE: 11/10/2018 ENDOCRINOLOGY CONSULT LOCATION: Room #375. ENDOCRINOLOGY CONSULT HISTORY OF PRESENT ILLNESS: This is a 68-year-old female with recent diagnosis of stage III non-small cell lung carcinoma, presenting to her oncologist's office with progressive shortness of breath and generalized body weakness and has thus been admitted for further workup and management. She has been started on IV steroid therapy as given with transient hyperglycemic accelerations and is being referred now for further diabetic evaluation and management. PAST MEDICAL HISTORY: History of hypothyroidism, currently on Synthroid at 50 mcg daily; history of hypertension and dyslipidemia; history of chronic obstructive lung disease. 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 She was subsequently diagnosed to have a right upper lobe mass lesion and the CAT scan-guided biopsy confirmed the presence of stage III B non-small cell lung carcinoma. She is currently undergoing chemotherapy at this time as noted. History of diffuse osteoarthritis. She also has anemia of chronic disease. FAMILY HISTORY: Positive for mother's history strongly positive for carcinoma and her father had lung carcinoma and her brother had colorectal carcinoma. SOCIAL HISTORY: The patient is a former smoker, but quit in 1989, with social use of alcohol. She has a very supportive family, otherwise. REVIEW OF SYSTEMS: Admits to generalized body weakness with episodic bouts of dizziness and lightheadedness with bifrontal headache. No chest pains, but admits to progressive shortness of breath initially on exertion and then at rest. Her oral intake has been variable with nausea and dyspepsia and vague upper abdominal pains with habitual constipation. PHYSICAL EXAMINATION: GENERAL: This is an overweight female in no apparent distress. VITAL SIGNS: Blood pressure of 140/80, pulse of 70 beats per minute and regular, temperature 99, respirations 20, height is 5 feet 7 inches, weight is 250 pounds. HEENT: Head normocephalic. Eyes anicteric with pink conjunctivae. Funduscopy not possible at this time. Ears, nose, and throat, otherwise, normal. NECK: Supple. Thyroid gland is normal in size. No carotid bruits or any cervical adenopathy. CARDIOPULMONARY: Some adynamic precordium. S1, S2 is rapid and regular. LUNGS: Show scattered rhonchi. ABDOMEN: Obese, soft, with positive bowel sounds. EXTREMITIES: No peripheral edema. Pulses are +2 bilaterally. LABORATORY DATA: Her chemistry showed a BUN of 19, sodium 139, potassium 4.5, chloride 100, CO2 of 39, glucose 242, and creatinine 0.7. Her glucose levels have ranged from 260-360 mg/dL. Hemoglobin is 8.4, hematocrit of 29.5. ASSESSMENT: This is a 68-year-old female with uncontrolled and decompensated type 2 insulin-requiring diabetes, clearly with transient hyperglycemic accelerations related to the intercurrent IV steroid therapy with increased insulin resistance and further impaired glucose tolerance thereof. She has not been on any kind of diabetic medications in the outpatient as noted. PLAN OF MANAGEMENT: We will initiate the basal and bolus insulin drug combination just for inpatient diabetic management and start her on Humalog given as 4 units t.i.d. before meals to start tomorrow morning as ordered. We will modify the coverage scale to obviate hypoglycemia and detailed orders have been given. We will also add basal insulin with Levemir given as 12 units subcu at bedtime daily to start tonight. We will titrate incrementally as indicated to optimize metabolic control. We will obtain a hemoglobin A1c to confirm her prior glycemic control and baseline thyroid function studies will be ordered. Moreover, we will adjust her levothyroxine dose accordingly. Crystal Mcgregor MD
--- NOTE | 2018-11-11 17:02 | PN ---
DATE: 11/11/2018 This is [facility] visit on the medical floor. For Dr. Adames. SUBJECTIVE: The patient is a 68-year-old female, seen sitting up in a chair with known to suffer from stage III non-small cell CA of the lung, stage II colon cancer, chronic obstructive pulmonary disease, hypothyroidism, now with a right-sided malignant pleural effusion and pedal edema. The patient also has anemic indices and is resting now with her feet elevated after Lasix 40 mg IV twice a day was recommended by chemistry instructor foreign law consultant, Dr. Jang, with good effect as per the patient. The patient initially got short of breath which is now improved. PHYSICAL EXAMINATION: VITAL SIGNS: Temperature 97, pulse 75, respirations 20, blood pressure 146/72 and pulse ox 94%. HEENT: Unremarkable. NECK: Supple. HEART: Regular rate. LUNGS: Decreased breath sounds at the right, rare rhonchi in the left. ABDOMEN: Obese, soft, and nontender. EXTREMITIES: +1 to +2 edema of the feet bilaterally with erythema noted. NEUROLOGIC: Awake and alert. SKIN: Otherwise warm and dry. LABORATORY DATA: The patient's labs were done. White blood cell count of 8.9. Hemoglobin of 8.9, up from 8.4 yesterday; however, this is heme constriction after Lasix has been given significant doses. Hematocrit of 31.3, platelet count 471,000 with a metabolic panel showing a nonfasting glucose of 240, otherwise normal metabolic panel. The patient's urine output has significantly improved once Lasix was begun. The patient did have a CT scan of her chest done, two days prior, it was read as thoracentesis performed from previous study, minimal right effusion, improvement in the consolidation adjacent to the effusion in the right lower lobe, no change in right upper lobe consolidation, air bronchograms, 2.5 cm right lower lobe mass was better seen on the current study, interstitial changes seen in the left upper lobe. ASSESSMENT: For this patient is that of stage III non-small cell carcinoma of the lung with pleural effusion, history of colon cancer, hypothyroidism, gastroesophageal reflux disease, obesity, anemia of chronic disease, history of myocardial infarction, pulmonary hypertension, diabetes mellitus with uncontrolled, and pedal edema. PLAN: Plan for this patient after conversation with Dr. Zacarias is to continue the present medical regimen with the patient now typed and crossed for two units of packed red blood cells with transfusion as indicated for anemic indices. The patient has a strong cardiac history, she has oxygen on in the interim with labs to be checked in the morning. We will continue present medical regimen, monitoring clinically and with labs with the patient not considered a candidate for intervention for her mediastinal lung lesions as per Dr. Feliz. At this point, she is improved after 550 mL of pleural effusion was drained with air bronchograms being shown on testing. With this, we will ask for an TCU evaluation with the patient to have an outpatient PET CT scan next week with Xalkori medication being held in the interim. This is a complex patient with a comprehensive medically necessary and appropriate visit carried out in excess of 25 minutes with discussion held with Dr. Feliz and nursing staff regarding the patient's care with the patient's questions answered to her satisfaction. It should be noted that the patient's port was accessed and she was transferred to the medical floor from telemetry with Dr. Crystal Mcgregor requested to consult for her uncontrolled diabetes mellitus. Gerard Gibson MD
--- NOTE | 2018-11-11 22:01 | PN ---
DATE: 11/11/2018 PULMONARY PROGRESS NOTE REFERRING PHYSICIAN: Frankie Adames MD/JENNIFER. SUBJECTIVE: She is out of bed to chair. Night was unremarkable. Tolerating CPAP well. Feels little better. Shortness of breath is better. Not much cough. No nausea, vomiting, no diarrhea. Still has leg swelling. OBJECTIVE PHYSICAL EXAMINATION GENERAL: Not in acute distress. VITAL SIGNS: Temperature is 98, heart rate 75, respiratory rate is 20, blood pressure 146/72, pulse ox 95% on 3 liters nasal cannula. HEENT: Moist mucous membrane. Crowded airway. Mallampati score is 4. NECK: Supple. No JVD. CARDIOPULMONARY: Heart, S1 and S2. LUNGS: Have a few crackles at the bases. Scattered rhonchi. ABDOMEN: Soft, nontender. No organomegaly. EXTREMITIES: Does have edema. NEUROLOGIC: Awake, alert and follows simple commands. MEDICATIONS: She is on Brovana inhaled twice a day, Colace 100 mg twice a day, also on doxycycline 100 mg twice a day, Ecotrin 81 mg daily, insulin coverage, Lasix is 40 mg IV twice a day, Levemir 40 units subcutaneous at bedtime, Lipitor 40 mg daily, Lovenox 40 mg subcutaneous daily, getting midodrine 5 mg three times a day, Protonix is 40 mg at bedtime, Pulmicort inhaled twice a day, Solu-Medrol is 20 mg every 12 hours, Synthroid 15 mcg daily, Tylenol p.r.n. basis, Zofran p.r.n. basis. LABORATORY DATA: Shows hemoglobin 8.9, hematocrit 31.3, WBC 8.9, platelet count is 471. Sodium 142, potassium 3.9, chloride 97, bicarbonate 39, BUN 17, creatinine 0.5, glucose 252, calcium 8.6, AST 21, ALT 33, alk phos is 113. Albumin is 3.0. IMPRESSION AND PLAN: Non-small cell lung cancer, chronic obstructive lung disease, pleural effusion status post thoracentesis, gastroesophageal reflux disease, hypothyroidism, obesity, anemia, sleep apnea syndrome, pulmonary hypertension, history of orthostatic hypertension, no more orthostatic today, history of hyponatremia. Still have a fluid overloaded with also has a pulmonary hypertension. The patient seen by Endocrinology, case discussed in detail with Dr. Adames yesterday. I also spoke to Dr. Jimenez yesterday. Clinically, the patient is improving. Noted, Nephrology increased the Lasix yesterday, he agrees with it and I think we should decrease the dose of Solu-Medrol. Also we will suggest discontinuing midodrine for now. Follow up labs in the morning. The patient was counseled about fluid intake. Once discharged, we will try to get her endothelium inhibitors. Fall precautions. May benefit from therapy. Thank you and we will follow with you. Hussein Feliz MD
[2018-11-11] MEDS: Pantoprazole 40 mg EC Tab PO SCH (22:15)
[2018-11-11] MEDS: Insulin Detemir 100 units/ml Vial (Levemir) SC SCH (22:16)
--- NOTE | 2018-11-11 22:58 | PN ---
DATE: 11/11/2018 SUBJECTIVE: The patient is seen sitting in bed. She is awake. She is alert. She is comfortable. She is concerned about the persistent edema. She denies any fever or chills. She denies any shortness of breath. PHYSICAL EXAMINATION: GENERAL: Obese elderly lady, sitting in bed. VITAL SIGNS: Blood pressure 146/72, heart rate 75, respiratory rate 20, and temperature 97. HEENT: Normocephalic, atraumatic, positive pallor. NECK: Supple. No JVD. LUNGS: Bilateral equal air entry, bilateral equal expansion, decreased breath sounds at right base. CARDIAC: S1 and S2, regular rate and rhythm, no murmur, no rub. ABDOMEN: Obese, distended, soft, nontender, bowel sounds present. INTAKE AND OUTPUT: 1557/1350 LABORATORY DATA: WBC 8.9, hemoglobin 8.9, hematocrit 31, platelets 471. Sodium 142, potassium 3.9, chloride 97, CO2 of 39, BUN 17, creatinine 0.5, glucose 205, calcium 8.6, albumin 3. CURRENT MEDICATIONS: Brovana, Colace, doxycycline 100 every 12 hours, aspirin, Lasix 40 IV two times daily, Levemir, Lipitor, Lovenox, amlodipine 2.5, Protonix. ASSESSMENT: 1. Severe chronic lower extremity edema. 2. History of orthostatic hypotension, currently not orthostatic. 3. History of hyponatremia, currently not hyponatremic. 4. 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 5. Chronic obstructive pulmonary disease. PLAN: 1. Continue Lasix IV every 12 hours. 2. Daily weight. 3. Strict intake and output. 4. Daily orthostatic vital signs. 5. Discontinue amlodipine, likely to cause more edema. 6. Continue to monitor blood pressure and agree with holding ProAmatine for the time being. Tamiko Jang MD
[2018-11-12] MEDS: Levothyroxine 50 MCG TAB PO SCH (06:26)
[2018-11-12] MEDS: Arformoterol 15 mcg/2 ml Inh Sol IH SCH ×2 (06:59→19:51)
[2018-11-12] MEDS: Budesonide 0.5 mg/2 ml Inhal Susp UD IH SCH ×2 (06:59→19:51)
[2018-11-12 07:21] LABS: ALB/GLOB RATIO 0.9 (1.1-1.8); ALBUMIN 2.7 g/dL (3.0-4.8); ALT/SGPT 37 U/L (7-56); AST/SGOT 24 U/L (14-36); BLOOD UREA NITROGEN 20 mg/dL (7-21); CALCIUM 8.7 mg/dL (8.4-10.5); GFR NON-AFRICAN AMERICAN > 60
[2018-11-12 07:30] LABS: BASO # 0.03 K/mm3 (0.0-2.0); BASO % 0.4 % (0.0-3.0); EOS # 0.1 (0.0-0.7); EOS % 1.3 % (1.5-5.0); HEMOGLOBIN 8.9 g/dL (12.0-16.0); LYMPH # 0.7 (1.2-3.4); LYMPH % 10.3 % (22.0-35.0); MEAN CELL VOLUME 87.5 fl (80.0-105.0); MEAN CORPUSCULAR HEMOGLOBIN 24.7 pg (25.0-35.0); MEAN CORPUSCULAR HGB CONC 28.3 g/dl (31.0-37.0); MEAN PLATELET VOLUME 9.7 fl (7.0-11.0); MONO % 13.9 % (1.0-6.0); RBC 3.6 10^6/uL (3.5-6.1); RED CELL DISTRIBUTION WIDTH 19.4 % (11.5-14.5); WHITE BLOOD COUNT 7.1 10^3/uL (4.5-11.0)
[2018-11-12] MEDS: Insulin Lispro (humaLOG) LOW Coverage SC SCH ×4 (07:54→21:47)
[2018-11-12] MEDS: Insulin Lispro 1 UNITS/0.01 ML SC SCH ×3 (07:55→17:12)
[2018-11-12] MEDS: Enoxaparin 40 mg Syringe SC SCH (09:34)
[2018-11-12] MEDS ORDERED: MethylPREDNISolone 40 mg Vial IVP SCH (10:00)
--- NOTE | 2018-11-12 19:21 | PN ---
DATE: 11/12/2018 ENDOCRINOLOGY FOLLOWUP NOTE LOCATION: Room 375. SUBJECTIVE: This is a 68-year-old female with recent uncontrolled type 2 insulin-requiring diabetes of recent onset with prior steroid therapy with concomitant stage III non-small cell lung carcinoma and is now being followed closely for metabolic management. Her oral intake is quite variable with suboptimal meal portions as per the nursing staff. Her glycemic fluctuations overnight have ranged from 149 to 264 mg/dL. It was 317 at bedtime last night. Chemistry showed a BUN of 20, sodium 140, potassium 3.6, chloride 96, CO2 of 39, glucose 153, and creatinine 0.5. ASSESSMENT: This is a 68-year-old female with uncontrolled and decompensated type 2 insulin-requiring diabetes with recent hyperglycemic accelerations related to the intercurrent IV steroid therapy with expected increased insulin resistance and further impaired glucose tolerance thereof. Her IV steroids are being tapered down as noted and should also expect glycemic improvement accordingly. She also has metastatic stage IIIB non-small cell lung carcinoma and also prior history of colonic carcinoma with a right partial hemicolectomy as noted. PLAN OF MANAGEMENT: We will continue the same basal and bolus insulin regimen to allow for dose equilibration and keep her on the Humalog given as 4 units t.i.d. before meals as ordered. We will also continue the basal insulin given as Levemir at 14 units subcutaneous at bedtime daily as given. This insulin regimen is only given for inpatient diabetic management so long as the patient is on IV steroid therapy as noted. However, because of her ongoing all of steroid therapy given on the outpatient, she may actually need some kind of oral hypoglycemic drug combination as indicated. Moreover, she may also need basal insulin if impacting hyperglycemic levels persist accordingly. We will obtain serial chemistries and supplemental accordingly as needed. We will follow. Crystal Mcgregor MD
[2018-11-12 20:19] VITALS: RESP 20
--- NOTE | 2018-11-12 21:06 | PN ---
DATE: 11/12/2018 PULMONARY PROGRESS NOTE REFERRING PHYSICIAN: Dr. Adames. SUBJECTIVE: The patient is out of bed to chair. Night was unremarkable. Tolerated CPAP well. No headache, no rhinitis, no cough. Has shortness of breath on exertion. No chest pain, no nausea, no vomiting or diarrhea. Has increased leg swelling. OBJECTIVE: GENERAL: No acute distress. VITAL SIGNS: Temperature is 98, heart rate is 84, respiratory rate is 18, blood pressure 150/70. Orthostatic hypotension checked; there is no orthostatic hypotension. Pulse ox is 95% on 3 L nasal cannula. HEENT: Moist mucous membrane. Crowded airway. Mallampati score is 4. NECK: Supple. No JVD. LUNGS: A few scattered rhonchi. CARDIOPULMONARY: S1, S2. ABDOMEN: Soft, nontender. No organomegaly. EXTREMITIES: Has significant edema which is persistent increased since yesterday. NEUROLOGIC: Awake, alert. Follows simple commands. MEDICATIONS: She is on Brovana 15 mcg every 12 hours, Colace 100 mg twice a day, doxycycline 100 mg twice a day, Ecotrin 81 mg daily, insulin coverage, Lasix 40 mg IV every 12 hours, Levemir 40 units subcutaneous at bedtime, Lipitor 40 mg daily, Lovenox 40 mg subcu daily, Protonix 40 mg daily, Pulmicort inhaled twice a day, Solu-Medrol 20 mg daily, Tylenol p.r.n. basis, Zofran p.r.n. basis. LABORATORY DATA: Shows hemoglobin 8.9, hematocrit 31.5, WBC 7.1, platelet count is 488. Sodium 140, potassium 3.6, chloride 96, bicarbonate 31, BUN 20, creatinine 0.5, glucose 153, calcium 8.7, AST 24, ALT 37, alk phos 106, albumin is 2.7. Pleural fluid microbiology, there is no growth so far. IMPRESSION AND PLAN: Non-small cell lung cancer; chronic obstructive lung disease; pleural effusion, status post thoracentesis; gastroesophageal reflux disease; hypothyroidism; obesity; anemia; sleep apnea syndrome; pulmonary hypertension; history of orthostatic hypotension in the past; history of hyponatremia in the past. Clinically, I feel she probably is taking too much of fluid. We will place her on 1 L of fluid restriction. We will increase Lasix to 40 mg every 8 hours, follow blood pressure closely. We will also follow kidney function, also follow sodium. Sometimes she needs a PET scan as outpatient; this is scheduled for coming . Can go to type of services for rehab. We will discuss further with Dr. Adames if she needs any further workup including bronchoscopy and transthoracic needle biopsy. Follow up labs in the morning. Thank you and we will follow with you. Hussein Feliz MD
[2018-11-12] MEDS: Insulin Detemir 100 units/ml Vial (Levemir) SC SCH (21:49)
[2018-11-12] MEDS: Pantoprazole 40 mg EC Tab PO SCH (21:49)
[2018-11-13] MEDS: Levothyroxine 50 MCG TAB PO SCH (05:46)
[2018-11-13 07:06] LABS: BASO # 0.03 K/mm3 (0.0-2.0); BASO % 0.4 % (0.0-3.0); EOS # 0.1 (0.0-0.7); HEMOGLOBIN 10.7 g/dL (12.0-16.0); MEAN CELL VOLUME 86.8 fl (80.0-105.0); MEAN CORPUSCULAR HEMOGLOBIN 25.6 pg (25.0-35.0); MEAN CORPUSCULAR HGB CONC 29.5 g/dl (31.0-37.0); MEAN PLATELET VOLUME 9.6 fl (7.0-11.0); RBC 4.18 10^6/uL (3.5-6.1); RED CELL DISTRIBUTION WIDTH 18.6 % (11.5-14.5); WHITE BLOOD COUNT 7.3 10^3/uL (4.5-11.0)
--- NOTE | 2018-11-13 07:06 | CP.PCM.PN ---
Objective - Vital Signs/Intake and Output Vital Signs (last 24 hours): Temp Pulse Resp BP Pulse Ox 98.6 F 75 20 143/80 95 11/12/18 20:00 11/13/18 01:44 11/12/18 20:00 11/12/18 20:00 11/12/18 06:00 Intake and Output: 11/13/18 11/13/18 06:59 18:59 Intake Total 403 Balance 403 - Medications Medications: Current Medications Acetaminophen (Tylenol 325mg Tab) 650 mg PO Q6H PRN PRN Reason: Pain, Mild (1-3) Arformoterol Tartrate (Brovana) 15 mcg IH [id number] [facility] Last Admin: 11/12/18 19:51 Dose: 15 mcg Aspirin (Ecotrin) 81 mg PO DAILY [facility] Last Admin: 11/12/18 09:34 Dose: 81 mg Atorvastatin Calcium (Lipitor) 40 mg PO DIN [facility] Last Admin: 11/12/18 17:12 Dose: 40 mg Budesonide (Pulmicort Respules) 0.5 mg IH [id number] [facility] Last Admin: 11/12/18 19:51 Dose: 0.5 mg Dextrose (Dextrose 50% Inj) 0 ml IV STAT PRN; Protocol PRN Reason: Hypoglycemia Protocol Docusate Sodium (Colace) 100 mg PO BID [facility] Last Admin: 11/12/18 17:12 Dose: 100 mg Enoxaparin Sodium (Lovenox) 40 mg SC DAILY [facility]; Protocol Last Admin: 11/12/18 09:34 Dose: 40 mg Furosemide (Lasix) 80 mg IV BID [facility] Last Admin: 11/12/18 17:13 Dose: Not Given Dextrose (Dextrose 5% In Water 1000 Ml) 1,000 mls @ 0 mls/hr IV .Q0M PRN; Protocol PRN Reason: Hypoglycemia Protocol Insulin Detemir (Levemir) 14 unit SC HS [facility] Last Admin: 11/12/18 21:49 Dose: 14 units Insulin Human Lispro (Humalog Low) 0 units SC ACHS [facility]; Protocol Last Admin: 11/12/18 21:47 Dose: 2 units Insulin Human Lispro (Humalog) 4 units SC AC [facility] Last Admin: 11/12/18 17:12 Dose: 4 units Levothyroxine Sodium (Synthroid) 50 mcg PO 0600 [facility] Last Admin: 11/13/18 05:46 Dose: 50 mcg Ondansetron HCl (Zofran Inj) 4 mg IVP Q6H PRN PRN Reason: Nausea/Vomiting Pantoprazole Sodium (Protonix Ec Tab) 40 mg PO HS [facility] Last Admin: 11/12/18 21:49 Dose: 40 mg Prednisone (Prednisone Tab) 20 mg PO DAILY [facility] - Labs Labs: 11/12/18 06:10 11/12/18 06:10 PT 14.2 SECONDS (9.4-12.5) H 11/07/18 13:10 INR 1.26 11/07/18 13:10 APTT 30.3 Seconds (26.9-38.3) 11/07/18 13:10
[2018-11-13 07:28] LABS: ALB/GLOB RATIO 0.9 (1.1-1.8); ALBUMIN 2.7 g/dL (3.0-4.8); ALT/SGPT 34 U/L (7-56); AST/SGOT 19 U/L (14-36); BLOOD UREA NITROGEN 21 mg/dL (7-21); CALCIUM 8.9 mg/dL (8.4-10.5); GFR NON-AFRICAN AMERICAN > 60
--- NOTE | 2018-11-13 07:30 | CP.PCM.PN ---
Subjective - Date & Time of Evaluation Date of Evaluation: 11/13/18 Time of Evaluation: 08:00 - Subjective Subjective: Pool Nolasco PGY2 - Progress Note for Dr. Adames Patient is seen and examined this AM. She reports stable respiratory effort, continued lower extremity swelling. Denies chest pain, chest pressure, abdominal discomfort, poor urinary output, nausea, vomiting, fever, chills. Objective - Vital Signs/Intake and Output Vital Signs (last 24 hours): Temp Pulse Resp BP Pulse Ox 98.6 F 75 20 143/80 95 11/12/18 20:00 11/13/18 01:44 11/12/18 20:00 11/12/18 20:00 11/12/18 06:00 Intake and Output: 11/13/18 11/13/18 06:59 18:59 Intake Total 403 Balance 403 - Medications Medications: Current Medications Acetaminophen (Tylenol 325mg Tab) 650 mg PO Q6H PRN PRN Reason: Pain, Mild (1-3) Arformoterol Tartrate (Brovana) 15 mcg IH [id number] [facility] Last Admin: 11/12/18 19:51 Dose: 15 mcg Aspirin (Ecotrin) 81 mg PO DAILY [facility] Last Admin: 11/12/18 09:34 Dose: 81 mg Atorvastatin Calcium (Lipitor) 40 mg PO DIN [facility] Last Admin: 11/12/18 17:12 Dose: 40 mg Budesonide (Pulmicort Respules) 0.5 mg IH [id number] [facility] Last Admin: 11/12/18 19:51 Dose: 0.5 mg Dextrose (Dextrose 50% Inj) 0 ml IV STAT PRN; Protocol PRN Reason: Hypoglycemia Protocol Docusate Sodium (Colace) 100 mg PO BID [facility] Last Admin: 11/12/18 17:12 Dose: 100 mg Enoxaparin Sodium (Lovenox) 40 mg SC DAILY [facility]; Protocol Last Admin: 11/12/18 09:34 Dose: 40 mg Furosemide (Lasix) 80 mg IV BID [facility] Last Admin: 11/12/18 17:13 Dose: Not Given Dextrose (Dextrose 5% In Water 1000 Ml) 1,000 mls @ 0 mls/hr IV .Q0M PRN; Protocol PRN Reason: Hypoglycemia Protocol Insulin Detemir (Levemir) 14 unit SC [facility] Last Admin: 11/12/18 21:49 Dose: 14 units Insulin Human Lispro (Humalog Low) 0 units SC ACHS [facility]; Protocol Last Admin: 11/12/18 21:47 Dose: 2 units Insulin Human Lispro (Humalog) 4 units SC AC [facility] Last Admin: 11/12/18 17:12 Dose: 4 units Levothyroxine Sodium (Synthroid) 50 mcg PO 0600 [facility] Last Admin: 11/13/18 05:46 Dose: 50 mcg Ondansetron HCl (Zofran Inj) 4 mg IVP Q6H PRN PRN Reason: Nausea/Vomiting Pantoprazole Sodium (Protonix Ec Tab) 40 mg PO HS [facility] Last Admin: 11/12/18 21:49 Dose: 40 mg Prednisone (Prednisone Tab) 20 mg PO DAILY [facility] - Labs Labs: 11/13/18 05:40 11/13/18 05:40 PT 14.2 SECONDS (9.4-12.5) H 11/07/18 13:10 INR 1.26 11/07/18 13:10 APTT 30.3 Seconds (26.9-38.3) 11/07/18 13:10 - Constitutional Appears: Non-toxic - Head Exam Head Exam: ATRAUMATIC, NORMOCEPHALIC - Eye Exam Eye Exam: EOMI, PERRL - ENT Exam ENT Exam: Mucous Membranes Moist - Neck Exam Neck Exam: Full ROM - Respiratory Exam Respiratory Exam: Decreased Breath Sounds (minimal, improved over past 72 hours) , NORMAL BREATHING PATTERN. absent: Rales - Cardiovascular Exam Cardiovascular Exam: REGULAR RHYTHM, +S1, +S2 - GI/Abdominal Exam GI & Abdominal Exam: Soft, Normal Bowel Sounds. absent: Firm, Guarding, Rigid - Extremities Exam Extremities Exam: Full ROM, Pedal Edema. absent: Tenderness Additional comments: erythema and swelling bilaterally - Neurological Exam Neurological Exam: Alert, Awake, CN II-XII Intact, Normal Gait, Oriented x3 Additional comments: motor and sensory grossly intact - Psychiatric Exam Psychiatric exam: Normal Affect, Normal Mood - Skin Skin Exam: Dry, Warm Assessment and Plan - Assessment and Plan (Free Text) Assessment: 68 year old female with PMH of stage IIIb NSCLC of RUL, stage II colon adenocarcinoma (s/p resection), COPD, HTN, hypothyroidism, HLD, anemia of chronic disease, and OA admitted for management of R-sided malignant pleural effusion. Plan: R-sided Pleural effusion -Etiology: Likely malignant vs. less likely infectious vs. inflammatory -IR, Dr. Jimenez, consulted for thoracentesis -Pulmonology consulted as BAL will be needed to further characterize the etiology of her respiratory compromise -Conversations with Dr. Feliz regarding further workup conducted, looks less likely need for BAL or stenting of bronchus based off conversations between Dr. Adames and Dr. Feliz -PET scan 11/16 -Continue brovana, solumedrol, pulmicort, supplemental O2 to maintain SpO2 > 95% Chronic lower extremity edema secondary to lymphedema vs. low albumin state - Nephrology following, follow up recs - Pulmonology following, IV lasix has been increased to 80mg IV BID, will need to monitor for another 24 hours for fluid status, electrolyte imbalance, renal function Protein calorie malnutrition - Calorie count - Dietary referral, follow up recommendations Stage IIIb NSCLC -Continue xalkori for now -Consider radiation vs. additional therapy if resp comprimise 2/2 worsening tumor burden -Patient to have PET scan 11/16 for further evaluation of right sided mass/pleural effusion -Once PET scan completed further decisions regarding course of treatment and/or evaluation will be conducted with Dr. Feliz with pulmonology and Dr. Adames. Patient will need PET scan to determine further investigation of progression of size or new active sites Normocytic anemia -Most likely 2/2 iron deficiency and anemia of chronic disease -Continue iron supplementation -Hemoglobin showing trend downward with 8.2 Hgb today -Continue to trend H/H with plans for transfusion with goal Hgb >7 HTN - Continue home meds with holding parameters - Echocardiogram: EF 65%, RV mod dilated, RVSP 61 - moderate TR, mod Pulm HTN Hypothyroidism -Continue home synthroid dose -TSH levels indicate controlled (TSH 0.72) HLD -Continue home lipitor Hyperglycemia -Likely secondary to steroid usage -ISS medium -ACHS DVT/GI PPX: Lovenox/protonix Full Code HHD Patient seen, examined with, and plan discussed with attending Dr. Adames
[2018-11-13] MEDS: Arformoterol 15 mcg/2 ml Inh Sol IH SCH ×2 (08:14→20:25)
[2018-11-13] MEDS: Budesonide 0.5 mg/2 ml Inhal Susp UD IH SCH ×2 (08:14→20:25)
--- NOTE | 2018-11-13 08:39 | PN ---
DATE: 11/12/2018 This is [facility] visit on the Oncology medical floor. For Dr. Adames. SUBJECTIVE: The patient is a 68-year-old female, seen sitting up in a chair with her feet dangling with request for a recliner so that the patient may have her feet elevated as she continues to have significant pedal edema for which she is receiving Lasix 40 mg IV twice a day as per Dr. Jang, Renal gift consultant. At present, she is not to have significant anemic indices; however, due to IV Lasix being given in significant doses she seems constricted with her urine output improving once this was done. We will ask for a recliner as above. Also, the patient's diet was cardiac diet. We will add carbohydrate restricted as she does have significantly elevated blood sugars with the diet to be implemented. PHYSICAL EXAMINATION VITAL SIGNS: Temperature 98.2, pulse 84, respirations 18, blood pressure 150/72, and pulse ox 95%. HEENT: Unremarkable. NECK: Supple. HEART: Regular rate. LUNGS: Faint rales at the bases. Occasional rhonchi. ABDOMEN: Obese, soft and nontender. EXTREMITIES: +1 edema of the feet bilateral with increased erythema. NEUROLOGIC: Awake and alert. SKIN: Otherwise warm, dry and clear except new erythema of the lower extremities bilaterally. LABORATORY DATA: The patient's labs were done. White blood cell count is 7.1, hemoglobin of 8.9, hematocrit of 31.5, platelet count of 488,000. Again, the patient's hemoglobin 2 days prior was 8.2 with a today evaluation value of 8.4 and now after aggressive diuresis, the hemoglobin has improved, but is noted to be in constricted with the true value significantly lower as the patient has had transfusions in the past for anemia of chronic disease. The patient's metabolic panel shows a creatinine of 0.5, non-fasting glucose of 264, albumin 2.7. The patient did have a CT scan of the chest done 2 days prior that was read as thoracentesis performed with the previous studies minimal right effusion, there has been an improvement in the consolidation adjacent to the effusion in the right lower lobe, no change in the right upper lobe consolidation air bronchograms, 2.5 cm right lower lobe mass is better seen on the current study, interstitial changes are seen in the left upper lobe. ASSESSMENT: For this patient is that of stage III non-small cell carcinoma of the lung with pleural effusion, status post thoracenteses, hypothyroidism, gastroesophageal reflux disease, anemia of chronic disease, sleep apnea, pulmonary hypertension, diabetes mellitus now improved control, pedal edema, obesity, history of colon cancer. PLAN: Plan for this patient; after conversation with Dr. Adames is to continue with her present medical regimen. We will transfuse 2 units of packed red blood cells slowly over 3 hours each unit after premedications given as the patient has a cardiac history, history of myocardial infarction in the past with oxygen to continue in the interim. We will recommend evaluation for TCU with the patient to have a PET CT scan as an outpatient next week with her Xalkori to continue to be held in the interim. This is a complex patient with a comprehensive medically necessary and appropriate visit carried out in excess of 40 minutes with the patient's questions answered to her satisfaction with nursing staff apprised of recommendations including transfusion of blood as above. Gerard Gibson MD
[2018-11-13] MEDS: Insulin Lispro 1 UNITS/0.01 ML SC SCH ×3 (09:03→17:05)
[2018-11-13] MEDS: Insulin Lispro (humaLOG) LOW Coverage SC SCH ×4 (09:04→21:18)
[2018-11-13] MEDS: Enoxaparin 40 mg Syringe SC SCH (09:05)
--- NOTE | 2018-11-13 15:02 | PN ---
DATE: 11/13/2018 PULMONARY PROGRESS NOTE REFERRING PHYSICIAN: Gerard Gibson MD. SUBJECTIVE: The patient is seen sitting in armchair in room. No acute distress. No overnight events reported. Reports wearing CPAP machine last night. Reports still having shortness of breath with exertion, but it is improving. No cough noted at this time. No headache, rhinitis, chest pain, abdominal pain, nausea, vomiting, diarrhea or leg pain reported. The patient still has leg edema. PHYSICAL EXAMINATION: GENERAL: No acute distress. VITAL SIGNS: Blood pressure 144/85, pulse 68, temperature 98 and oxygen saturation 98% on nasal cannula. HEENT: Moist mucous membranes. Mallampati score of 4. Crowded airway. NECK: Supple. No JVD. LUNGS: Scattered rhonchi few bilaterally. CARDIOVASCULAR: S1 and S2. ABDOMEN: Soft and nontender. No distention. No organomegaly. EXTREMITIES: Bilateral lower extremity edema continues. NEUROLOGIC: Awake, alert and verbal. Following commands. MEDICATIONS: Reviewed. Tylenol 650 every 6 hours p.r.n. mild pain, Brovana 15 mcg every 12 hours, aspirin 81 mg daily, Lipitor 40 mg at dinner, Pulmicort 0.5 mg every 12 hours, Colace 100 mg twice a day, Lovenox 40 mg subcutaneous daily, Lasix 80 mg IV twice a day, Levemir 40 mg subcutaneous at bedtime, Humalog sliding scale a.c. at bedtime, Humalog 4 units a.c., Synthroid 50 mcg daily, Zofran 4 mg IV push every 6 hours p.r.n. Protonix 40 mg at bedtime, prednisone 20 mg daily. LABORATORY DATA: Reviewed. WBC 7.3, RBC 4.1, hemoglobin 10.7, hematocrit 36.3 and platelets 450. Sodium 141, potassium 4, chloride 98, carbon dioxide 39, anion gap 8, BUN 21, creatinine 0.5, GFR is greater than 60, POC glucose 147, random glucose 171, calcium 8.9, total bilirubin 0.3, AST 19, ALT 34, alkaline phosphatase 103, total protein 5.9, albumin 2.7, globulin 3.1, and albumin-globulin ratio 0.9. Blood cultures final, no growth after 5 days. Fungal culture preliminary shows no fungal element seen. Pleural fluid culture final, no growth. IMPRESSION AND PLAN: Non-small cell lung cancer, chronic obstructive lung disease, pleural effusion status post thoracentesis, hypothyroidism, obesity, gastroesophageal reflux disease, anemia, sleep apnea syndrome, pulmonary hypotension, history of orthostatic hypotension in the past, and history of hyponatremia in the past. Continue 1 L fluid restriction. Continue diuretics. Monitor blood pressure closely. We will also need to follow up with labs, monitor kidney functions and electrolytes. We will order labs in the morning. The patient scheduled for PET scan as outpatient. We will order chest x-ray PA and lateral to be done today to rule out effusion or infiltrate. Continue physical therapy. Continue to elevate bilateral lower extremities. The patient educated on fluid restriction and the need to maintain fluid restriction to 1 L. The patient verbalized understanding. Fall precaution. Sleep apnea precaution, head of bed elevated 45 degrees. Continue to encourage CPAP use at bedtime. Case discuses with PMD, joão has bilateral leg swelling. will continue IV lasix 80 mg another one day and reassess in AM,. This patient was seen and examined with Dr. Feliz. Discussed assessment and plan as described above. This patient was seen and examined by Juan Richardson, nurse practitioner. Discussed assessment and plan as described above. Thank you for this consult. We will follow with you. Juan Richardson APN Hussein Feliz MD DAVID
--- NOTE | 2018-11-13 15:48 | PN ---
DATE: 11/13/2018 SUBJECTIVE: The patient is seen sitting in chair. She is awake, she is alert, she is comfortable. She reports she is feeling better. She is urinating a lot with the Lasix IV 40 every 12 hours. She denies any dizziness. She got physical therapy earlier today. PHYSICAL EXAMINATION: GENERAL: Elderly lady sitting in bed. VITAL SIGNS: Blood pressure 144/85, heart rate 68, respiratory rate 20, and temperature 98. HEENT: Normocephalic, atraumatic, positive pallor. NECK: Supple, no JVD. LUNGS: Bilateral equal air entry, bilateral equal expansion. CARDIAC: S1 and S2, regular rate and rhythm, no murmur, no rub. ABDOMEN: Obese, distended, soft, nontender, bowel sounds present. EXTREMITIES: 3+ pitting edema of the lower extremities. Intake and output /not charted. LABORATORY DATA: WBC 7, hemoglobin 10.7, hematocrit 36, and platelets 450. Sodium 141, potassium 4, chloride 98, CO2 of 39, BUN 21, creatinine 0.5, glucose 171, calcium 8.9, albumin 2.7, and globulin 3.1. CURRENT MEDICATIONS: Brovana, Colace, Ecotrin, insulin, Lasix 80 IV every 12 hours, Lipitor 40, Lovenox, prednisone 20 daily, Protonix, Synthroid, Tylenol, and Zofran. ASSESSMENT: 1. Severe lower extremity edema, improving, now on Lasix 80 intravenously every [address] Feliz. 2. History of orthostatic hypotension, need to record blood pressure in 3 positions every day. 3. Tne-gjfnjqm-[id number] diabetes mellitus. 4. Stage 3 B non-small cell carcinoma of the lung. 5. Morbid obesity. 6. Right pleural effusion, status post thoracentesis. 7. Chronic obstructive pulmonary disease exacerbation, much improved. PLAN: 1. Need to record daily weights accurately. 2. Orthostatic vital signs every day. 3. Monitor electrolytes closely, now on Lasix 80 IV every 12 hours. 4. Continue insulin. 5. Continue to taper steroids. 6. Discharge planning ?. Tamiko Jang MD
[2018-11-13] MEDS: Insulin Detemir 100 units/ml Vial (Levemir) SC SCH (21:22)
[2018-11-13] MEDS: Pantoprazole 40 mg EC Tab PO SCH (21:22)
--- NOTE | 2018-11-13 22:39 | PN ---
DATE: 11/13/2018 LOCATION: Room 375. SUBJECTIVE: This is a 68-year-old female with recent uncontrolled type 2 insulin-requiring diabetes of recent onset with the intercurrent IV steroid therapy as given and is now being followed closely for metabolic management. Her glycemic levels are fluctuating but much improved as noted overnight and the glucose values have ranged from 147 to 236 mg/dL. It was 217 at 2 a.m. this morning but it was also 380 at bedtime last night. Her chemistry showed a BUN of 21, sodium 141, potassium 4, chloride 98, CO2 of 39, glucose 171 and creatinine 0.5. ASSESSMENT: This is a 68-year-old female with uncontrolled and decompensated type 2 insulin-requiring diabetes of recent onset related to the intercurrent steroid therapy as given. She was previously started on IV steroids and has been switched over to oral steroids today as noted. There is transient increased insulin resistance with the use of steroid therapy with expected hyperglycemic accelerations as noted thereof. She also has significant history of non-small cell lung carcinoma and colonic carcinoma with previous chemo and immunotherapy as given at this time. PLAN OF MANAGEMENT: We will continue the same basal and bolus insulin regimen to allow for dose equilibration as she has now been switched over to oral steroid therapy as given. We will continue her Humalog given as 4 units t.i.d. with meals and Levemir given as 14 units subcu at bedtime daily as given. We will obtain serial chemistries and supplement accordingly as needed. We are actually giving the insulin therapy only for inpatient diabetic management. She may go home on probably just oral hypoglycemic therapy or no diabetic medications at all. We will follow and advise accordingly. Crystal Mcgregor MD
[2018-11-14] MEDS: Levothyroxine 50 MCG TAB PO SCH (05:48)
[2018-11-14 06:23] LABS: BASO # 0.01 K/mm3 (0.0-2.0); BASO % 0.1 % (0.0-3.0); EOS # 0.1 (0.0-0.7); EOS % 1.1 % (1.5-5.0); HEMOGLOBIN 11.4 g/dL (12.0-16.0); LYMPH % 12.6 % (22.0-35.0); MEAN CELL VOLUME 87.2 fl (80.0-105.0); MEAN CORPUSCULAR HEMOGLOBIN 25.1 pg (25.0-35.0); MEAN CORPUSCULAR HGB CONC 28.8 g/dl (31.0-37.0); MEAN PLATELET VOLUME 9.7 fl (7.0-11.0); MONO % 12.6 % (1.0-6.0); RBC 4.54 10^6/uL (3.5-6.1); RED CELL DISTRIBUTION WIDTH 18.7 % (11.5-14.5); WHITE BLOOD COUNT 8.2 10^3/uL (4.5-11.0)
[2018-11-14 07:23] LABS: ALBUMIN 3.2 g/dL (3.0-4.8); ALT/SGPT 32 U/L (7-56); AST/SGOT 23 U/L (14-36); BLOOD UREA NITROGEN 25 mg/dL (7-21); CALCIUM 8.9 mg/dL (8.4-10.5); GFR NON-AFRICAN AMERICAN > 60
[2018-11-14] MEDS ORDERED: Potassium Chloride 20 mEq ER Tab PO ONE (07:28)
[2018-11-14] MEDS: Arformoterol 15 mcg/2 ml Inh Sol IH SCH (07:52)
[2018-11-14] MEDS: Budesonide 0.5 mg/2 ml Inhal Susp UD IH SCH (07:52)
[2018-11-14 08:45] VITALS: PULSE 80; TEMP 98.3; O2SAT 98
[2018-11-14] MEDS: Insulin Lispro (humaLOG) LOW Coverage SC SCH ×2 (10:00→12:40)
[2018-11-14] MEDS: Enoxaparin 40 mg Syringe SC SCH (10:00)
[2018-11-14] MEDS: Insulin Lispro 1 UNITS/0.01 ML SC SCH ×2 (10:01→12:39)
[2018-11-14 10:02] VITALS: BP 140/84
--- NOTE | 2018-11-14 11:53 | PN ---
DATE: 11/14/2018 PULMONARY PROGRESS NOTE REFERRING PHYSICIAN: Gerard Gibson MD SUBJECTIVE: The patient is seen sitting in armchair in room. No acute distress. No overnight events reported. Reports feeling well today. Cough and shortness of breath have improved; although, the patient still gets short of breath with exertion. No headache, rhinitis, chest pain, abdominal pain, nausea, vomiting, diarrhea or leg pain reported. PHYSICAL EXAMINATION: GENERAL: No acute distress. VITAL SIGNS: Blood pressure 139/83, pulse 80, temperature 98.3 and oxygen saturation 98% on nasal cannula. HEENT: Moist mucous membranes. Mallampati score of 4. Crowded airway. NECK: Supple. No JVD. LUNGS: Few scattered rhonchi bilaterally. CARDIOVASCULAR: S1 and S2. ABDOMEN: Soft and nontender. No distention. EXTREMITIES: Bilateral lower extremity edema improving. NEUROLOGIC: Awake, alert and verbal. Following commands. MEDICATIONS: Reviewed. Tylenol 650 every 6 hours p.r.n. mild pain, Brovana 15 mcg inhalation every 12 hours, aspirin 81 mg daily, Lipitor 40 mg at dinner, Pulmicort 0.5 mg inhalation every 12 hours, Colace 100 mg twice a day, Lovenox 40 mg subcutaneous daily, Lasix 80 mg IV twice a day, Levemir 14 units subcutaneous at bedtime, Humalog sliding scale a.c. at bedtime, Humalog 4 units subcutaneous a.c., Synthroid 50 mcg daily, Zofran 4 mg IV push every 6 hours p.r.n., Protonix 40 mg at bedtime and prednisone 20 mg daily. LABORATORY DATA: Reviewed. WBC 8.2, RBC 4.54, hemoglobin 11.4, hematocrit 39.6 and platelets 532. Sodium 139, potassium 4.4, chloride 95, carbon dioxide 41, anion gap 7, BUN 25, creatinine 0.6, GFR is greater than 60, POC glucose 180, random glucose 195, calcium 8.9, total bilirubin 0.3, AST 23, ALT 32, alkaline phosphatase 110, total protein 6.4, albumin 3.2, globulin 3.2 and albumin-globulin ratio 1.0. Pleural fluid cytology report shows negative for malignant cells, mesothelial cells, scant histiocytes and lymphocytes present. IMPRESSION AND PLAN: Non-small cell lung cancer, chronic obstructive lung disease, pleural effusion status post thoracentesis, hypothyroidism, obesity, gastroesophageal reflux disease, anemia, sleep apnea syndrome, pulmonary hypertension, history of orthostatic hypotension in the past, and history of hyponatremia in the past. Presently with hypokalemia, the patient received potassium replacement this morning. The patient is scheduled for PET scan as outpatient on . He will be seen in Dr. Adames's office on . We will repeat SMA-7 on . We will place the patient on Lasix 80 mg p.o. twice a day instead of IV and we will place the patient on potassium 40 mEq daily with labs to be done in Dr. Adames's office. Chest x-ray pending to be done to rule out effusion or infiltrates. Continue to elevate bilateral lower extremities. The patient educated again this morning on fluid restriction and need to maintain fluid restriction to 1 L. The patient verbalized understanding. Fall precautions. Continue to encourage continuous positive airway pressure use at bedtime. Sleep apnea precaution and head of bed elevated at 45 degrees. This patient was seen and examined with Dr. Feliz. Discussed assessment and plan as described above. This patient was seen and examined by Juan Richardson, nurse practitioner. Discussed assessment and plan as described above. Thank you for this consult. We will follow with you. Juan Richardson APN Hussein Feliz MD
--- NOTE | 2018-11-14 13:07 | RAD ---
Date of service: 11/14/2018 HISTORY: rule out effusion, infiltrate COMPARISON: 11/09/2019 TECHNIQUE: Chest PA and lateral views FINDINGS: LUNGS: No active pulmonary disease. PLEURA: No significant pleural effusion identified. No pneumothorax apparent. CARDIOVASCULAR: No aortic atherosclerotic calcification present. Normal cardiac size. No pulmonary vascular congestion. OSSEOUS STRUCTURES: No significant abnormalities. VISUALIZED UPPER ABDOMEN: Normal. OTHER FINDINGS: None. IMPRESSION: No active disease.
--- NOTE | 2018-11-14 15:29 | CP.PCM.DIS ---
Provider - Provider Date of Admission: 11/07/18 13:18 Attending physician: Gerard Gibson MD Consults: 11/07/18 13:22 Physician Consult Stat Comment: Consulting Provider: Hussein Feliz Consulting Physician: Hussein Feliz Reason for Consult: COPD 11/07/18 13:23 Physician Consult Routine Comment: Consulting Provider: Gus Jimenez Consulting Physician: Gus Jimenez Reason for Consult: thoracocentesis 11/08/18 15:59 Physician Consult Routine Comment: Consulting Provider: Romeo Richards Consulting Physician: Romeo Richards Reason for Consult: low albumin, fluid status 11/10/18 19:39 Consult [Physician Consult] Routine Comment: Consulting Provider: Crystal Mcgregor Consulting Physician: Crystal Mcgregor Reason for Consult: uncontrolled dm 11/12/18 11:56 TCU [Evaluation for TRCU] Routine Comment: Physician Instructions: Reason For Exam: deconditioning Time Spent in preparation of Discharge (in minutes): 45 Diagnosis - Discharge Diagnosis (1) COPD (chronic obstructive pulmonary disease) Status: Chronic (2) Non-small cell lung cancer (NSCLC) Status: Chronic Priority: High Hospital Course - Lab Results Lab Results: Micro Results 11/07/18 13:40 Blood-Venous Blood Culture - Final NO GROWTH AFTER 5 DAYS 11/07/18 13:40 Blood-Venous Gram Stain - Final TEST NOT PERFORMED 11/07/18 13:10 Blood-Venous Blood Culture - Final NO GROWTH AFTER 5 DAYS 11/07/18 13:10 Blood-Venous Gram Stain - Final TEST NOT PERFORMED 11/07/18 17:00 Pleural Fluid Body Fluid Culture - Final No growth. 11/07/18 17:00 Other: Please Indicate Mycobacterial Culture - Preliminary 11/07/18 17:00 Pleural Fluid Fungal Culture - Preliminary Most Recent Lab Values WBC 8.2 10^3/uL (4.5-11.0) 11/14/18 05:52 RBC 4.54 10^6/uL (3.5-6.1) 11/14/18 05:52 Hgb 11.4 g/dL (12.0-16.0) L 11/14/18 05:52 Hct 39.6 % (36.0-48.0) 11/14/18 05:52 MCV 87.2 fl (80.0-105.0) 11/14/18 05:52 MCH 25.1 pg (25.0-35.0) 11/14/18 05:52 MCHC 28.8 g/dl (31.0-37.0) L 11/14/18 05:52 RDW 18.7 % (11.5-14.5) H 11/14/18 05:52 Plt Count 532 10^3/uL (120.0-450.0) H 11/14/18 05:52 MPV 9.7 fl (7.0-11.0) 11/14/18 05:52 Neut % (Auto) 73.6 % (50.0-68.0) H 11/14/18 05:52 Lymph % (Auto) 12.6 % (22.0-35.0) L 11/14/18 05:52 [place] % (Auto) 12.6 % (1.0-6.0) H 11/14/18 05:52 Eos % (Auto) 1.1 % (1.5-5.0) L 11/14/18 05:52 Baso % (Auto) 0.1 % (0.0-3.0) 11/14/18 05:52 Lymph # (Auto) 1.0 (1.2-3.4) L 11/14/18 05:52 [place] # (Auto) 1.0 (0.1-0.6) H 11/14/18 05:52 Eos # (Auto) 0.1 (0.0-0.7) 11/14/18 05:52 Baso # (Auto) 0.01 K/mm3 (0.0-2.0) 11/14/18 05:52 Absolute Neuts (auto) 5.99 (1.4-6.5) 11/14/18 05:52 PT 14.2 SECONDS (9.4-12.5) H 11/07/18 13:10 INR 1.26 11/07/18 13:10 APTT 30.3 Seconds (26.9-38.3) 11/07/18 13:10 pO2 31 mm/Hg (30-55) 11/07/18 13:10 VBG pH 7.41 (7.32-7.43) 11/07/18 13:10 VBG pCO2 53.0 (40-60) 11/07/18 13:10 VBG HCO3 33.6 mmol/l (21-28) H 11/07/18 13:10 VBG Total CO2 35.2 mmol.L (22-28) H 11/07/18 13:10 VBG O2 Sat (Calc) 53.5 % (40-65) 11/07/18 13:10 VBG Base Excess 7.3 mmol/L (0.0-2.0) H 11/07/18 13:10 VBG Potassium 3.7 mmol/L (3.6-5.2) 11/07/18 13:10 Sodium 134.0 mmol/L (132-148) 11/07/18 13:10 Chloride 99.0 mmol/L (98-107) 11/07/18 13:10 Glucose 107 mg/dl (65-105) H 11/07/18 13:10 Lactate 1.5 mmol/L (0.7-2.1) 11/07/18 13:10 FiO2 21.0 % 11/07/18 13:10 Sodium 139 mmol/L (132-148) 11/14/18 05:52 Potassium 3.5 mmol/L (3.6-5.0) L 11/14/18 05:52 Chloride 95 mmol/L (98-107) L 11/14/18 05:52 Carbon Dioxide 41 mmol/L (21-33) H 11/14/18 05:52 Anion Gap 7 (10-20) L 11/14/18 05:52 BUN 25 mg/dL (7-21) H 11/14/18 05:52 Creatinine 0.6 mg/dl (0.7-1.2) L 11/14/18 05:52 Est GFR ( Amer) > 60 11/14/18 05:52 Est GFR (Non-Af Amer) > 60 11/14/18 05:52 POC Glucose (mg/dL) 262 mg/dL (65-110) H 11/14/18 12:26 Random Glucose 195 mg/dL (70-110) H 11/14/18 05:52 Calcium 8.9 mg/dL (8.4-10.5) 11/14/18 05:52 Phosphorus 4.3 mg/dL (2.5-4.5) 11/08/18 06:30 Magnesium 2.0 mg/dL (1.7-2.2) 11/08/18 06:30 Total Bilirubin 0.3 mg/dL (0.2-1.3) 11/14/18 05:52 AST 23 U/L (14-36) 11/14/18 05:52 ALT 32 U/L (7-56) 11/14/18 05:52 Alkaline Phosphatase 110 U/L (38-126) 11/14/18 05:52 Troponin I < 0.01 ng/mL 11/07/18 13:10 NT-Pro-B Natriuret Pep 412 pg/mL (0-450) 11/07/18 13:10 Total Protein 6.4 g/dL (5.8-8.3) 11/14/18 05:52 Albumin 3.2 g/dL (3.0-4.8) 11/14/18 05:52 Globulin 3.2 gm/dL 11/14/18 05:52 Albumin/Globulin Ratio 1.0 (1.1-1.8) L 11/14/18 05:52 Procalcitonin 0.32 NG/ML (0.19-0.49) 11/07/18 13:10 TSH 3rd Generation 0.72 mIU/mL (0.46-4.68) 11/08/18 06:30 Cortisol AM Sample 13.5 ug/dL (4.46-22.7) 11/09/18 05:45 Venous Blood Potassium 3.7 mmol/L (3.6-5.2) 11/07/18 13:10 Fluid Source Pleural 11/07/18 17:00 Fluid Appearance Sl cloudy (CLEAR) 11/07/18 17:00 Fluid WBC 1070.0 /uL (0.0-300.0) H 11/07/18 17:00 Fluid RBC 374.0 /uL (0.0-0.0) H 11/07/18 17:00 Fluid Tot Cell Count 100 (0-0) H 11/07/18 17:00 Fluid Mononuclear Cell 90.5 % (0-0) H 11/07/18 17:00 Fl Polymorphonucl Cell 9.5 % (0-0) H 11/07/18 17:00 Fluid Comment Light yellow 11/07/18 17:00 Pleural Glucose 149 mg/dL 11/07/18 17:00 Thoracentesis Fluid pH 7.0 11/07/18 17:00 Blood Type O POSITIVE 11/11/18 05:40 Antibody Screen Negative 11/11/18 05:40 Crossmatch See Detail 11/11/18 05:40 BBK History Checked Patient has bt 11/11/18 05:40 - Hospital Course Hospital Course: La is a 67 year old female with PMH of stage IIIb NSCLC of RUL, stage II colon adenocarcinoma (s/p resection), COPD, HTN, hypothyroidism, HLD, anemia of chronic disease, and OA who presented to ED from Dr. Mart office with complaint of worsening SOB and fatigue. Patient had recently been admitted to [facility] [place] RUL mass identified as adenocarcinoma of lung origin after undergoing CT-guided biopsy. While in ED patient received chest CT showing worsening right sided effusion with RUL mass-like consolidation. Interventional radiology was consulted for thoracentesis. 550 cc of fluid was drained and sent to lab for further investigation of malignancy. Workup showed elevated WBC, RBC, total cell count, mononuclear cells, polymorphonuclear cells. Further workup for mycobacteria culture, fungus cultures were sent off and awaiting final results. Pulmonology was consulted for further assistance in working up RUL adenocarcinoma and right-sided pleural effusion. Discussions regarding BAL vs. stenting were conducted but ultimately decided upon PET scan for further evaluation of RUL mass. Dr. Jang evaluated patient with nephrology for fluid status concerns in the setting of her chronic bilaterally lower extremity lymphadenopathy. She was given IV Lasix over the course of her stay with removal of close to 15 pounds of fluid. She gained more functionality in her lower extremities and was able to ambulate more around her room and in the hallways with physical therapy. Physical therapy recommended home with services as patient was denied access to TCU. During her stay patient blood sugar was elevated likely secondary to steroid usage in the setting of uncontrolled DM. Dr. Crystal Mcgregor was consulted and evaluated the patient placing her on Insulin. Patient medically optimized and discharged on 11/14/2018 with continued oral steroids and oral Lasix. She was instructed to follow up with her scheduled appointment for PET scan 11/16/2018 as well as with Dr. Adames and Dr. Feliz. Discharge Exam - Head Exam Head Exam: ATRAUMATIC, NORMOCEPHALIC - Eye Exam Eye Exam: EOMI, PERRL - ENT Exam ENT Exam: Mucous Membranes Moist - Neck Exam Neck exam: Full Rom - Respiratory Exam Respiratory Exam: Clear to PA & Lateral, NORMAL BREATHING PATTERN - Cardiovascular Exam Cardiovascular Exam: REGULAR RHYTHM, +S1, +S2 - GI/Abdominal Exam GI & Abdominal Exam: Normal Bowel Sounds, Soft. absent: Distended, Firm, Guarding - Extremities Exam Additional comments: bilateral edema +1 improved from admission, erythema skin changes - Neurological Exam Neurological exam: Alert, CN II-XII Intact, Normal Gait, Oriented x3, Reflexes Normal - Psychiatric Exam Psychiatric exam: Normal Affect, Normal Mood - Skin Skin Exam: Dry, Warm Discharge Plan - Discharge Medications Prescriptions: Arformoterol [Brovana] 15 mcg IH [id number] #1 neb Budesonide [Pulmicort Respules] 0.5 mg IH [id number] #1 neb Furosemide [Lasix] 40 mg PO BID 5 Days #20 tablet MetFORMIN [glucoPHAGE] 1,000 mg PO BID #60 tab Potassium Chloride [K-Dur 20] 20 meq PO BID 5 Days #10 tab predniSONE [predniSONE Tab] 10 mg PO DAILY #60 tab Repaglinide [Prandin] 0.5 mg PO ACBD #60 tab - Follow Up Plan Condition: GOOD Disposition: HOME/ ROUTINE Instructions: Anemia Caused by Low Iron, Exacerbation of COPD (DC) Additional Instructions: Follow up with Dr. Adames in his office within 7-10 days upon discharge Follow up with Dr. Feliz in his office within 2 weeks upon discharge Go to your scheduled PET scan on 11/16/2018 and follow up on results Continue current medication regiment as prescribed to you with changes below - Prednisone 10mg by mouth once daily. Please take 10 mg daily for one week, then decrease to 7.5 mg for one week, then call Dr. Adames after. - Lasix 40mg by mouth twice daily Please follow a carb consistent diet, 2 gram sodium diet Return to nearest emergency department if you begin experiencing worsening shortness of breath, chest pain, chest pressure, uncontrolled abdominal pain, unrelenting fever in the setting of medication Make sure to ambulate throughout day and at rest keep legs elevated in effort to reduce lower extremity swelling Referrals: Gabby Adames MD [Family Provider] - Hussein Feliz MD [Staff Provider] -
--- NOTE | 2018-11-14 16:52 | PN ---
DATE: 11/14/2018 ENDOCRINOLOGY FOLLOWUP NOTE LOCATION: In room . SUBJECTIVE: This is a 68-year-old female with recent hyperglycemic accelerations and no prior usage of any insulin therapy, presenting here with generalized body weakness with recurrent metastatic lung carcinoma of the non-small cell type with ongoing chemo and immunotherapy as given, and is now being followed closely for metabolic management. She was given initially IV steroid therapy with supervening hyperglycemic accelerations that have improved now with the switch over to oral steroid therapy as given. Her glucose levels have ranged from 188-208 and 334 mg/dL. LABORATORY DATA: Her chemistry showed a BUN of 25, sodium 139, potassium 3.5, chloride 95, CO2 of 41, glucose 195, and creatinine 0.6. ASSESSMENT AND PLAN: So at this time, we will continue the modified basal and bolus insulin regimen to allow for full dose equilibration, especially that we are tapering down her oral steroids as given. We will continue the Humalog given as 4 units t.i.d. before meals and Levemir given as 14 units subcutaneously at bedtime daily as given. We will also be adding oral hypoglycemic therapy with metformin given as 500 mg b.i.d. as the patient may eventually have to go home on oral hypoglycemic therapy. We are giving the insulin combination therapy only for inpatient diabetic management. We will obtain serial chemistries and supplement accordingly as needed. We will follow. Crystal Mcgregor MD
--- NOTE | 2018-11-14 19:07 | PN ---
DATE: 11/14/2018 SUBJECTIVE: The patient is currently seen sitting up in a chair. She states that she will be discharged later today. She has been transitioned over from IV to oral Lasix. Her lower extremity edema is mildly improved. The patient is continuing with physical therapy. As per the nurses, she has been able to stand without any dizziness or lightheadedness. I do not see any orthostatic blood pressures charted. MEDICATIONS: Medication list reviewed. The patient is currently on Brovana, Colace, Ecotrin, Glucophage, sliding scale insulin, potassium, Lasix 80 mg p.o. b.i.d., long-acting insulin, Lipitor, Lovenox, prednisone, Protonix, Pulmicort Respules, Synthroid, Tylenol and Zofran. OBJECTIVE INTAKE/OUTPUT: Intake is 1020. Output is not charted. VITAL SIGNS: Blood pressure sitting up is 140/84. Pulse is 80 with a temperature of 98.3 and a respiratory rate of 20. Oxygen saturation is 95%. HEENT: Shows her to be normocephalic, atraumatic. Conjunctivae are pink. Sclerae nonicteric. NECK: Supple. No neck vein distention. CHEST: Clear to auscultation and percussion with no rales, rhonchi or wheezing. CARDIOVASCULAR: Shows a regular rate and rhythm without rubs or gallops. Positive tricuspid regurgitation. Positive aortic insufficiency. Positive mitral regurgitation. ABDOMEN: Mildly obese. Nondistended. Soft, nontender. Bowel sounds are present. EXTREMITIES: Show 2+ pitting edema of her lower extremity bilaterally. No appreciable palpable pulses secondary to edema. No cyanosis or clubbing. LABORATORY DATA AND IMAGING: CBC; white blood cell count today 8.2, hemoglobin 11.4 with a platelet count of 532,000. Chemistry showed sodium of 139, potassium 3.5, borderline low, chloride 95 with a CO2 of 41, BUN is 25 with a creatinine of 0.6. Last glucose is 262, hemoglobin A1c acceptable at 6.6%. Calcium 8.9. Liver enzymes are normal. Microbiology; all cultures are negative. ASSESSMENT 1. Lower extremity edema improved with transition from intravenous to p.o. Lasix. The patient will be discharged home on oral Lasix. 2. Past history of orthostatic hypotension. The patient had been using medications to raise her blood pressure. Currently she remains normotensive in a sitting position. The patient will likely be discharged home on Florinef and ProAmatine and to be followed in the outpatient setting. 3. History of noninsulin-dependent diabetes mellitus. Hemoglobin A1c acceptable at 6.6%. 4. 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 5. History of obesity, currently stable. 6. Right pleural effusion, status post thoracentesis. 7. History of chronic obstructive pulmonary disease with exacerbation, improved on current inhalation therapy and with close pulmonary followup. PLAN 1. Okay from renal standpoint for discharge home. Her electrolytes are acceptable. Continue to supplement potassium on an as-needed basis as she continues on Lasix therapy at home. 2. Continue to take medication to support blood pressure so that she does not develop any orthostatic hypotension. 3. Continue to taper steroids as this will likely cause further fluid retention. 4. Discharge home later today as per Dr. Gibson. Romeo Richards MD
[2018-11-15] MEDS ORDERED: Potassium Chloride 20 mEq ER Tab PO SCH (08:00)
== END 2018-11-14 16:21 | disposition home or self-care (01) | DRG 181 ==
LOC: ED 12:19 → ERH 13:18 → 2RSO 15:33 → 3RSO 11-10 21:41
PROVIDERS: ADMIT Family Medicine; ATTEND Family Medicine
PROC: 3E0F7GC Introduction of Other Therapeutic Substance into Respiratory Tract, Via Natural or Artificial Opening (ICD-10-PCS; 2018-11-07)
PROC: 0W993ZZ Drainage of Right Pleural Cavity, Percutaneous Approach (ICD-10-PCS; principal; 2018-11-07 15:00)
PROC: 5A09457 Assistance with Respiratory Ventilation, 24-96 Consecutive Hours, Continuous Positive Airway Pressure (ICD-10-PCS; 2018-11-09)
PROC: 30233N1 Transfusion of Nonautologous Red Blood Cells into Peripheral Vein, Percutaneous Approach (ICD-10-PCS; 2018-11-12)
DX: C34.90 Malignant neoplasm of unspecified part of unspecified bronchus or lung (principal); J91.0 Malignant pleural effusion; E87.1 Hypo-osmolality and hyponatremia; J44.1 Chronic obstructive pulmonary disease with (acute) exacerbation; E46 Unspecified protein-calorie malnutrition; D63.8 Anemia in other chronic diseases classified elsewhere; E11.65 Type 2 diabetes mellitus with hyperglycemia; E78.5 Hyperlipidemia, unspecified; E03.9 Hypothyroidism, unspecified; D50.9 Iron deficiency anemia, unspecified; I11.0 Hypertensive heart disease with heart failure; I25.10 Atherosclerotic heart disease of native coronary artery without angina pectoris; I50.9 Heart failure, unspecified; I27.20 Pulmonary hypertension, unspecified; K21.9 Gastro-esophageal reflux disease without esophagitis; E87.6 Hypokalemia; T38.0X5A Adverse effect of glucocorticoids and synthetic analogues, initial encounter; G47.30 Sleep apnea, unspecified; I25.2 Old myocardial infarction; E66.01 Morbid (severe) obesity due to excess calories; Z68.39 Body mass index [BMI] 39.0-39.9, adult; Z79.82 Long term (current) use of aspirin; Z79.899 Other long term (current) drug therapy; Z85.038 Personal history of other malignant neoplasm of large intestine; Z79.4 Long term (current) use of insulin; Z92.21 Personal history of antineoplastic chemotherapy; Z92.3 Personal history of irradiation; Z87.891 Personal history of nicotine dependence; Z90.49 Acquired absence of other specified parts of digestive tract

== ENCOUNTER 2018-11-16 06:13 | Outpatient (CLI) | payer MEDICARE | END 2018-11-16 06:14 | disposition home or self-care (01) | LOC: PET-BROA 06:13 ==

== ENCOUNTER 2018-11-16 13:34 | Outpatient (CLI) | payer MEDICARE | END 2018-11-16 13:35 | disposition home or self-care (01) | LOC: OPLAB 13:34 ==

== ENCOUNTER 2018-12-27 13:12 | Outpatient (CLI) | payer MEDICARE | END 2018-12-27 13:13 | disposition home or self-care (01) | LOC: OPLAB 13:12 ==